=== PATIENT | female | born 1930 | race Caucasian/White ===

== ENCOUNTER 2016-07-19 12:17 | Inpatient (IN) | payer OTHER ==
[2016-07-19 12:24] VITALS: BMI 25.7
[2016-07-19] MEDS ORDERED: dilTIAZem HCL 125 MG/25 ML - 25 ML VIAL ONE ×2 (12:37→13:06)
--- NOTE | 2016-07-19 12:40 | PDOC ---
History of Present Illness - General History Source: Patient, Family, Primary Care Provider Exam Limitations: No Limitations <CastanoLeilani blake - Last Filed: 07/19/16 16:32> <Brandon Gonzales - Last Filed: 07/19/16 18:48> - General Chief Complaint: Palpitations Stated Complaint: HEART PALPITATIONS Time Seen by Provider: 07/19/16 12:39 - History of Present Illness Initial Comments: 07/19/16 12:40 The patient is an 86-year-old woman, accompanied by family, with a significant past medical history of hypertension, arrhythmia, anemia, peptic ulcer disease, GERD, and COPD(home O2 dependent) who was sent to the emergency department by her Horse Riding Coach Or Instructor, Dr. Prince Olvera for further evaluation of palpitations. As per family, who is present at bedside, the atiet was noted to be in atrial fibrillation during an outpatient scheduled cardiac appointment. Patient was recently admitted for anemia. Patient was noted to have a HGB 6 of and was transfused with an improvement of her HGB to 9, but it is still unclear of the origin of the bleed. No chest pain, fever, chills, weakness, lightheadedness, dizziness, loss of consciousness. No abdominal pain, nausea, vomiting, diarrhea. Allergies: None Known Past Surgical History: Left femur fracture surgery. Right elbow fracture surgery. Social History: Former smoker. No ETOH and recreational drug use. Primary Care Physician: Dr. Ysabel Aguirre [phone] Horse Riding Coach Or Instructor: Dr. Bernie Stacy [phone] (Leilani Castano) Past History <Leilani Castano - Last Filed: 07/19/16 16:32> - Past Medical History Anemia: Yes Asthma: No Cancer: No Cardiac Disorders: Yes (ARRHYTHMIA) CVA: No COPD: Yes (PT USES O2 AT HOME) CHF: No Dementia: No Diabetes: Yes GI Disorders: Yes (GERD/R/O GI BLD) Disorders: No HTN: Yes Hypercholesterolemia: No Liver Disease: No Seizures: No Thyroid Disease: No - Surgical History Abdominal Surgery: No Appendectomy: No Cardiac Surgery: No Cholecystectomy: No Lung Surgery: No Neurologic Surgery: No Orthopedic Surgery: Yes (FX LEFT FEMUR WITH PINNING/RIGHT ELBOW FX ) - Psycho/Social/Smoking Cessation Hx Anxiety: No Suicidal Ideation: No Smoking History: Former smoker Have you smoked in the past 12 months: No If you are a former smoker, when did you quit?: 15 YRS Information on smoking cessation initiated: No Hx Alcohol Use: No Drug/Substance Use Hx: No Substance Use Type: None Hx Substance Use Treatment: No <Brandon Gonzales - Last Filed: 07/19/16 18:48> - Past Medical History Allergies/Adverse Reactions: Allergies Allergy/AdvReac Type Severity Reaction Status Date / Time No Known Allergies Allergy Verified 07/19/16 12:23 Home Medications: Ambulatory Orders Tiotropium Hext [Spiriva] 1 inh PO BID 07/19/14 Roflumilast [Daliresp -] 500 mcg PO DAILY #30 tablet 07/21/14 Metformin HCl 500 mg PO DAILY 05/09/15 Pregabalin [Lyrica -] 75 mg PO BID 05/09/15 Albuterol 0.083% Nebulizer Lisa [Ventolin 0.083% Nebulizer Soln -] 1 neb NEB BID 12/01/15 Aspirin [ASA -] 81 mg PO DAILY 04/18/16 Calcium Carbonate [Calcium] 500 mg PO BID 04/18/16 Escitalopram Oxalate [Lexapro -] 10 mg PO BID 04/18/16 Pantoprazole Sodium [Protonix] 40 mg PO DAILY 04/18/16 Pramipexole Di-HCl [Mirapex] 0.5 mg PO HS 04/18/16 Sucralfate [Carafate] 1 gm PO BID 04/18/16 [place]-3 Acid Ethyl Esters [Lovaza -] 2 gm PO BID cap 04/21/16 Benzonatate [Tessalon Perle -] 200 mg PO BID 05/04/16 Levalbuterol Tartrate [Xopenex Hfa] 15 gm IH DAILY PRN 05/04/16 Nortriptyline HCl [Pamelor -] 30 mg PO HS 05/04/16 Prednisone 5 mg PO BID 07/13/16 Salmeterol/Fluticasone [Advair 100Mcg/50Mcg -] 1 inh PO BID 07/13/16 Atorvastatin Ca [Lipitor] 10 mg PO HS #30 tablet 07/16/16 Ferrous Sulfate [Feosol] 325 mg PO BIDWM #120 ud 07/16/16 Metoprolol Succinate [Toprol XL -] 50 mg PO DAILY #30 tab.sr.24h 07/16/16 Prednisone See Taper PO ONCE #12 tablet 07/16/16 Cardiac Specific PMH - Complaint Specific PMHX Pacemaker: No <Brandon Gonzales - Last Filed: 07/19/16 18:48> Review of Systems - Review of Systems Able to Perform ROS?: Yes <Leilani Castano - Last Filed: 07/19/16 16:32> <Brandon Gonzales - Last Filed: 07/19/16 18:48> - Review of Systems Comments:: 07/19/16 12:40 GENERAL/CONSTITUTIONAL: No fever or chills. No weakness. HEAD, EYES, EARS, NOSE AND THROAT: No change in vision. No ear pain or discharge. No sore throat. CARDIOVASCULAR: Yes: +Palpitations. No chest pain or shortness of breath. RESPIRATORY: No cough, wheezing, or hemoptysis. GASTROINTESTINAL: No nausea, vomiting, diarrhea or constipation. GENITOURINARY: No dysuria, frequency, or change in urination. MUSCULOSKELETAL: No joint or muscle swelling or pain. No neck or back pain. SKIN: No rash NEUROLOGIC: No headache, vertigo, loss of consciousness, or change in strength/ sensation. ENDOCRINE: No increased thirst. No abnormal weight change. HEMATOLOGIC/LYMPHATIC: No anemia, easy bleeding, or history of blood clots. ALLERGIC/IMMUNOLOGIC: No hives or skin allergy. (Leilani Castano) *Physical Exam <Leilani Castano - Last Filed: 07/19/16 16:32> <Brandon Gonzales - Last Filed: 07/19/16 18:48> - Vital Signs Last Vital Signs Temp Pulse Resp BP Pulse Ox 98.2 F 88 20 121/74 99 07/19/16 16:53 07/19/16 16:53 07/19/16 16:53 07/19/16 16:53 07/19/16 17:16 - Physical Exam Comments: 07/19/16 12:40 GENERAL: Awake, alert, and fully oriented, in no acute distress HEAD: No signs of trauma EYES: PERRLA, EOMI, sclera anicteric, conjunctiva clear ENT: Auricles normal inspection, hearing grossly normal, nares patent, oropharynx clear without exudates. Moist mucosa NECK: Normal ROM, supple, no lymphadenopathy, JVD, or masses LUNGS: Breath sounds equal, clear to auscultation bilaterally. No wheezes, and no crackles HEART: rapid irregularly, irregular rate and rhythm ABDOMEN: Soft, nontender, normoactive bowel sounds. No guarding, no rebound. No masses EXTREMITIES: Normal range of motion, 2+ pitting edema to , bilaterally No clubbing or cyanosis. No cords, erythema, or tenderness NEUROLOGICAL: Cranial nerves II through XII grossly intact. Normal speech ( Leilani Castano) Heart Score/ECG Review <Leilani Castano - Last Filed: 07/19/16 16:32> <Brandon Gonzales - Last Filed: 07/19/16 18:48> #1 07/19/16 12:27 Reviewed and interpreted by Dr. Brandon Gonzales IMPRESSION: Atrial fibrillation with rapid ventricular response at a rate of 199 bpm. When compared to previous EKG obtained from 04/18/2016, the patient was in normal sinus rhythm. (Leilani Castano) ED Treatment Course - LABORATORY CBC & Chemistry Diagram: 07/19/16 13:20 07/19/16 13:20 <Leilani Castano - Last Filed: 07/19/16 16:32> - LABORATORY CBC & Chemistry Diagram: 07/19/16 13:20 07/19/16 13:20 <Brandon Gonzales - Last Filed: 07/19/16 18:48> - ADDITIONAL ORDERS Additional order review: Laboratory Results 07/19/16 07/19/16 07/19/16 13:20 13:20 13:20 INR 1.04 PTT (Actin FS) 25.0 L Sodium 135 L Potassium 4.3 Chloride 102 Carbon Dioxide 30 Anion Gap 3 L BUN 32 H D Creatinine 0.9 D Creat Clearance w eGFR 59.37 Random Glucose 133 H Calcium 9.6 Magnesium 1.6 L Total Bilirubin 0.5 D AST 40 H D ALT 26 D Alkaline Phosphatase 65 Creatine Kinase 27 Troponin I 0.09 H Total Protein 7.0 Albumin 3.3 L Urine Color Urine Appearance Urine pH Ur Specific [place] Urine Protein Urine Glucose (UA) Urine Ketones Urine Blood Urine Nitrite Urine Bilirubin Urine Urobilinogen Ur Leukocyte Esterase Urine RBC Urine WBC Granular Casts Urine Mucus Blood Type Antibody Screen 07/19/16 07/19/16 13:11 12:40 INR PTT (Actin FS) Sodium Potassium Chloride Carbon Dioxide Anion Gap BUN Creatinine Creat Clearance w eGFR Random Glucose Calcium Magnesium Total Bilirubin AST ALT Alkaline Phosphatase Creatine Kinase Troponin I Total Protein Albumin Urine Color Yellow Urine Appearance Slcloudy Urine pH 5.0 Ur Specific [place] 1.026 Urine Protein 1+ H Urine Glucose (UA) Negative Urine Ketones Negative Urine Blood 1+ H Urine Nitrite Negative Urine Bilirubin Negative Urine Urobilinogen 2.0 e.u/dl H Ur Leukocyte Esterase Negative Urine RBC 21 Urine WBC 12 Granular Casts 10 Urine Mucus Few Blood Type O POSITIVE Antibody Screen Negative 07/19/16 13:20 RBC 5.01 MCV 67.1 L MCHC 29.2 L RDW 24.8 H MPV 8.7 Neutrophils % 73.7 Lymphocytes % 19.8 D Monocytes % 5.7 Eosinophils % 0.5 Basophils % 0.3 - RADIOLOGY Radiology Studies Ordered: Category Date Time Status CHEST X-RAY PORTABLE* [RAD] Stat Radiology 07/19/16 12:41 Completed Radiograph Interpretation: 07/19/16 14:12 EXAM: RAD/CHEST X-RAY PORTABLE Reviewed by Dr. Brandon Gonzales Interpreted by Dr. Bossman Arias IMPRESSION: Cardiomegaly. No evidence of vascular congestion, pulmonary infiltrate, pneumothorax or large pleural effusion. (Castano,Leilani) - Medications Given in the ED: ED Medications Discontinued Medications Generic Name Dose Route Start Last Admin Trade Name Loli PRN Reason Stop Dose Admin Diltiazem HCl 20 mg 07/19/16 12:41 07/19/16 12:55 Cardizem Injection - IVPUSH 07/19/16 12:42 20 mg ONCE ONE Administration Diltiazem HCl 10 mg 07/19/16 14:09 07/19/16 14:13 Cardizem Injection - IVPUSH 07/19/16 14:10 10 mg ONCE ONE Administration Magnesium Sulfate 2 gm 07/19/16 17:58 07/19/16 18:10 Magnesium Sulfate IVPB 07/19/16 17:59 2 gm ONCE ONE Administration Metformin HCl 500 mg 07/19/16 17:30 07/19/16 18:11 Glucophage - PO Not Given DAILY MICHAEL Metoprolol Succinate 50 mg 07/19/16 17:30 07/19/16 18:11 Toprol Xl - PO Not Given DAILY MICHAEL Metoprolol Tartrate 5 mg 07/19/16 14:15 07/19/16 14:19 Lopressor Injection - IVPUSH 07/19/16 14:16 5 mg ONCE ONE Administration Medical Decision Making <Leilani Castano - Last Filed: 07/19/16 16:32> <Brandon Gonzales - Last Filed: 07/19/16 18:48> - Medical Decision Making 07/19/16 14:11 Overhead page to Horse Riding Coach Or Instructor, Dr. Bernie Stacy Immediate response by Horse Riding Coach Or Instructor, Dr. Tristen Tucker, who is covering. Recommends to start the patient on a beta cydney. 07/19/16 16:06 MicroBlogged Hospitalist. 07/19/16 16:32 Response by Hospitalist, Dr. April No. Case was discussed. Accepts case. (Leilani Castano) *DC/Admit/Observation/Transfer <Leilani Castano - Last Filed: 07/19/16 16:32> - Discharge Dispostion Admit: Yes <Brandon Gonzales - Last Filed: 07/19/16 18:48> Diagnosis at time of Disposition: Atrial fibrillation with rapid ventricular response - Discharge Dispostion Condition at time of disposition: Improved - Referrals Referrals: Liam Michel [Primary Care Provider] - - Attestations Scribe Attestion: 07/19/16 12:40 Documentation prepared by Leilani Castano, acting as medical insurance clerk for Brandon Gonzales MD. (Leilani Castano)
[2016-07-19] MEDS ORDERED: dilTIAZem HCL 50 MG/10 ML - 10 ML VIAL IVPUSH ONE ×2 (12:41→14:09)
[2016-07-19] MEDS ORDERED: dilTIAZem HCL 50 MG/10 ML - 10 ML VIAL ONE (13:06)
[2016-07-19] MEDS ORDERED: DILTIAZEM INJECTION 125 MG in DEXTROSE 5%-WATER - 100 ML IVPB SCH (13:15)
[2016-07-19 13:53] LABS: BASOPHIL 0.3 % (0-2.0); EOSINOPHIL 0.5 % (0-4.5); MCHC 29.2 g/dl (32.0-36.0); MEAN CELL VOLUME 67.1 fl (80-96); MEAN PLT VOLUME 8.7 fl (7.5-11.1); NEUTROPHILS 73.7 % (42.8-82.8); PLATELET COUNT 458 K/MM3 (134-434); RDW 24.8 % (11.6-15.6); WHITE BLOOD COUNT 15.6 K/mm3 (4.0-10.0)
[2016-07-19 13:56] LABS: CALCIUM 9.6 mg/dL (8.5-10.1); MAGNESIUM 1.6 mg/dL (1.8-2.4)
[2016-07-19 13:57] LABS: INR 1.04 (0.82-1.09); PROTHROMBIN TIME (PATIENT) 11.5 SEC (9.98-11.88)
[2016-07-19 14:01] LABS: ALBUMIN 3.3 g/dl (3.4-5.0); BILIRUBIN,TOTAL 0.5 mg/dL (0.2-1.0); CREATININE 0.9 mg/dL (0.55-1.02); TROPONIN I 0.09 ng/ml (0.00-0.05)
[2016-07-19 14:04] LABS: MCH 19.6 pg (25.7-33.7)
[2016-07-19] MEDS ORDERED: METOPROLOL TARTRATE 5 MG/5 ML VIAL IVPUSH ONE (14:15)
[2016-07-19] MEDS ORDERED: METOPROLOL TARTRATE 5 MG/5 ML VIAL ONE (14:21)
[2016-07-19 14:22] LABS: URINE APPEARANCE SLCLOUDY; URINE BILIRUBIN NEGATIVE (NEGATIVE); URINE COLOR YELLOW; URINE GLUCOSE (UA) NEGATIVE (NEGATIVE); URINE KETONE NEGATIVE (NEGATIVE); URINE LEUK ESTERASE NEGATIVE (NEGATIVE); URINE NITRITE NEGATIVE (NEGATIVE); URINE UROBILINOGEN 2.0 E.U/dl E.U./dl (0.2-1.0)
--- NOTE | 2016-07-19 14:23 | CONSULT ---
Consult Consult Specialty:: Cardiology Referred by:: Hospitalist Medicine Reason for Consultation:: Rapid afib - History of Present Illness Chief Complaint: Palpitations History of Present Illness: 85 year old female with a past medical history of NIDDM, COPD ( on home O2), HTN , HLD, GERD, nonobstructive CAD, early Parkinson's disease, diastolic dysfunction with h/o failure, paroxysmal atrial tachycardia, anemia, gastric AVM post cautery, post herpetic neurolagia recent discharge from [facility] for AECOPD referred from cardiology office for palpitations, dyspnea on exertion and fatigue in rapid afib @ 199, given IV Cardizem and Lopressor for rate- control. 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 HISTORY), CAD, HTN, Hyperlipdemia Pulmonary: Yes: COPD Gastrointestinal: Yes: GERD Musculoskeletal: Yes: Osteoarthritis Endocrine: Yes: Diabetes Mellitus - Alcohol/Substance Use Hx Alcohol Use: No - Smoking History Smoking history: Former smoker Have you smoked in the past 12 months: No If you are a former smoker, when did you quit?: 15 YRS - Social History History of Recent Travel: No Home Medications - Allergies Allergies/Adverse Reactions: Allergies Allergy/AdvReac Type Severity Reaction Status Date / Time No Known Allergies Allergy Verified 07/19/16 12:23 - Home Medications Home Medications: Ambulatory Orders Tiotropium [place] [Spiriva] 1 inh PO BID 07/19/14 Roflumilast [Daliresp -] 500 mcg PO DAILY #30 tablet 07/21/14 Metformin HCl 500 mg PO DAILY 05/09/15 Pregabalin [Lyrica -] 75 mg PO BID 05/09/15 Albuterol 0.083% Nebulizer Lisa [Ventolin 0.083% Nebulizer Soln -] 1 neb NEB BID 12/01/15 Aspirin [ASA -] 81 mg PO DAILY 04/18/16 Calcium Carbonate [Calcium] 500 mg PO BID 04/18/16 Escitalopram Oxalate [Lexapro -] 10 mg PO BID 04/18/16 Pantoprazole Sodium [Protonix] 40 mg PO DAILY 04/18/16 Pramipexole Di-HCl [Mirapex] 0.5 mg PO HS 04/18/16 Sucralfate [Carafate] 1 gm PO BID 04/18/16 [place]-3 Acid Ethyl Esters [Lovaza -] 2 gm PO BID cap 04/21/16 Benzonatate [Tessalon Perle -] 200 mg PO BID 05/04/16 Levalbuterol Tartrate [Xopenex Hfa] 15 gm IH DAILY PRN 05/04/16 Nortriptyline HCl [Pamelor -] 30 mg PO HS 05/04/16 Prednisone 5 mg PO BID 07/13/16 Salmeterol/Fluticasone [Advair 100Mcg/50Mcg -] 1 inh PO BID 07/13/16 Atorvastatin Ca [Lipitor] 10 mg PO HS #30 tablet 07/16/16 Ferrous Sulfate [Feosol] 325 mg PO BIDWM #120 ud 07/16/16 Metoprolol Succinate [Toprol XL -] 50 mg PO DAILY #30 tab.sr.24h 07/16/16 Prednisone See Taper PO ONCE #12 tablet 07/16/16 Review of Systems - Review of Systems Cardiovascular: reports: Palpitations, Shortness of Breath Respiratory: reports: SOB on Exertion Vital Signs: Vital Signs Temperature 98.2 F 07/19/16 14:12 Pulse Rate 145 H 07/19/16 14:19 Respiratory Rate 20 07/19/16 14:12 Blood Pressure 124/88 07/19/16 14:19 O2 Sat by Pulse Oximetry (%) 94 L 07/19/16 14:12 Constitutional: Yes: No Distress, Calm Neck: Yes: Supple Respiratory: Yes: Regular, Diminished Gastrointestinal: Yes: Normal Bowel Sounds, Soft, Abdomen, Obese Cardiovascular: Yes: Tachycardia, Pulse Irregular JVD: No Carotid Bruit: No Heart Sounds: Yes: S1, S2 Murmur: Yes: Systolic Murmur, Grade 1 Edema: Yes Edema: LLE: Trace, RLE: Trace - Other Data Labs, Other Data: CBC, BMP 07/19/16 13:20 07/19/16 13:20 Troponin, BNP 07/19/16 13:20 Troponin I 0.09 H Troponin, BNP 07/19/16 13:20 Troponin I 0.09 H Rapid afib 199->Afib 100 Echo: Report Reviewed Ejection Fraction %: LVEF > or = 40 % Imaging - Results Chest X-ray: Report Reviewed (NAD) Problem List - Problems (1) Anemia Code(s): D64.9 - ANEMIA, UNSPECIFIED Qualifiers: Anemia type: unspecified type Qualified Code(s): D64.9 - Anemia, unspecified (2) COPD (chronic obstructive pulmonary disease) Code(s): J44.9 - CHRONIC OBSTRUCTIVE PULMONARY DISEASE, UNSPECIFIED Qualifiers : Emphysema type: centrilobular (3) Coronary artery disease Code(s): I25.10 - ATHSCL HEART DISEASE OF [place] CORONARY ARTERY W/O ANG PCTRS Qualifiers: Coronary Disease-Associated Artery/Lesion type: [place] artery [place] vs. transplanted heart: [place] heart Associated angina: without angina Qualified Code(s): I25.10 - Atherosclerotic heart disease of [place] coronary artery without angina pectoris (4) Diabetes Code(s): E11.9 - TYPE 2 DIABETES MELLITUS WITHOUT COMPLICATIONS Qualifiers: Diabetes mellitus complication status: with neurologic complications Diabetes mellitus complication detail: with polyneuropathy Diabetes mellitus buttermaker helper insulin use: without buttermaker helper use (5) Diastolic dysfunction with chronic heart failure Code(s): I50.32 - CHRONIC DIASTOLIC (CONGESTIVE) HEART FAILURE (6) Gastric AV malformation Code(s): Q27.33 - ARTERIOVENOUS MALFORMATION OF DIGESTIVE SYSTEM VESSEL (7) HTN (hypertension) Code(s): I10 - ESSENTIAL (PRIMARY) HYPERTENSION Qualifiers: Hypertension type: essential hypertension Qualified Code(s): I10 - Essential (primary) hypertension (8) Hyperlipidemia Code(s): E78.5 - HYPERLIPIDEMIA, UNSPECIFIED Qualifiers: Hyperlipidemia type: mixed hyperlipidemia Qualified Code(s): E78.2 - Mixed hyperlipidemia Assessment/Plan 07/14/2016 Echo: Borderline dilated with normal LV fxn LVEF 55-60%, mod LAE, mild MR, mild-mod TR, RVSP 49 mmHg, tr [place], [place] 1. Paroxysmal atrial fibrillation with RVR [id number] 2. Diastolic dysfunction 3. Anemia post-transfusion 4. Parkinsons disease 5. Nonobstructive CAD 6. HTN/HCVD 7. Gastritis, gastric AVM post cautery 8. NIDDM 9. Hyperlipidemia 10. Paroxysmal atrial tachycardia P:1. Rate-control on Cardizem gtt, IV Lopressor wean wean for HR>120 bpm, check TSH 2. Change Lopressor 50 bid, Lovaza 2 bid and Lipitor 10 qd 3. Change ASA to Eliquis 2.5 bid (Age>80, wt<60 Kg, Cr<1.5) given elevated risk score with monitor Hgb 4. BD, daliresp, O2 to maintain saO2, oral steroid taper, diuretics as needed 5. Thank you for consultative opportunity
[2016-07-19 14:46] LABS: URINE BLOOD 1+ (NEGATIVE); URINE PROTEIN 1+ (NEGATIVE)
[2016-07-19 14:57] LABS: GRANULAR CASTS 10 /lpf; URINE MUCUS FEW; URINE RBC 21 /hpf (0-3); URINE WBC 12 /hpf (3-5)
[2016-07-19] MEDS: METOPROLOL TARTRATE 50 MG TABLET (FP) PO SCH ×2 (15:17→21:31)
[2016-07-19] MEDS: APIXABAN 2.5 MG TABLET PO SCH ×2 (15:17→21:30)
[2016-07-19] MEDS ORDERED: ACETAMINOPHEN 325 MG TABLET (FP) PO PRN (16:35)
--- NOTE | 2016-07-19 17:07 | HP ---
CHIEF COMPLAINT: My heart doctor sent me to the ED PCP: Dr Tyrel Overton Pulmonary: Dr Gaona Transit Mix Operator: Dr Olvera Inspector Structural Bonding: Dr Zapien Neurologist: Dr Stubbs HISTORY OF PRESENT ILLNESS: 86 yo F with h/o COPD on home O2, NIDDM, HTN, HLD, GERD, CAD, h/o GI bleed, chronic microcytic anemia, Parkinson's disease, herpetic neurolagia sent by her cd technician to the ED due to A-fib with RVR. Patient was at Dr. Sharif's office for a regular visit where she's found to have irregularly irregular heart sound which was confirmed by abnormal EKG that showed Afib with RVR. However, patient is asymptomatic and denies palpitation, chest pain, shortness of breath, dizziness, vision change, fever, chills, n/v. She's previously admitted on 07/13/16 for COPD exacerbation and microcytic anemia s/p blood transfusion. ER course was notable for: (1) EKG shows afib with HR of 199 (2) 20mg cardizem x 1, 10mg cardizem x 1, lopressor 5mg x 1 (3) started eliquis 2.5 mg BID Recent Travel: None Social History: Lives at home Smokin-3 packs a day for at least 50 years, quit 15 years ago Alcohol: denies Drugs: denies Family History: Non-contributory Allergies No Known Allergies Allergy (Verified 07/19/16 12:23) HOME MEDICATIONS: Medication Instructions Recorded Tiotropium [place] [Spiriva] 1 inh PO BID 07/19/14 Roflumilast [Daliresp -] 500 mcg PO DAILY #30 tablet 07/21/14 Metformin HCl 500 mg PO DAILY 05/09/15 Pregabalin [Lyrica -] 75 mg PO BID 05/09/15 Albuterol 0.083% Nebulizer Lisa 1 neb NEB BID 12/01/15 [Ventolin 0.083% Nebulizer Soln -] Aspirin [ASA -] 81 mg PO DAILY 04/18/16 Calcium Carbonate [Calcium] 500 mg PO BID 04/18/16 Escitalopram Oxalate [Lexapro -] 10 mg PO BID 04/18/16 Pantoprazole Sodium [Protonix] 40 mg PO DAILY 04/18/16 Pramipexole Di-HCl [Mirapex] 0.5 mg PO HS 04/18/16 Sucralfate [Carafate] 1 gm PO BID 04/18/16 [place]-3 Acid Ethyl Esters [Lovaza 2 gm PO BID cap 04/21/16 -] Benzonatate [Tessalon [place] -] 200 mg PO BID 05/04/16 Levalbuterol Tartrate [Xopenex Hfa] 15 gm IH DAILY PRN 05/04/16 Nortriptyline HCl [Pamelor -] 30 mg PO HS 05/04/16 Prednisone 5 mg PO BID 07/13/16 Salmeterol/Fluticasone [Advair 1 inh PO BID 07/13/16 100Mcg/50Mcg -] Atorvastatin Ca [Lipitor] 10 mg PO HS #30 tablet 07/16/16 Ferrous Sulfate [Feosol] 325 mg PO BIDWM #120 ud 07/16/16 Metoprolol Succinate [Toprol XL -] 50 mg PO DAILY #30 tab.sr.24h 07/16/16 Prednisone See Taper PO ONCE #12 tablet 07/16/16 REVIEW OF SYSTEMS CONSTITUTIONAL: Absent: fever, chills, diaphoresis, generalized weakness, malaise, loss of appetite, weight change HEENT: Absent: rhinorrhea, nasal congestion, throat pain, throat swelling, difficulty swallowing, mouth swelling, ear pain, eye pain, visual changes CARDIOVASCULAR: Absent: chest pain, syncope, palpitations, irregular heart rate, lightheadedness , peripheral edema RESPIRATORY: Absent: cough, shortness of breath, dyspnea with exertion, orthopnea, wheezing, stridor, hemoptysis GASTROINTESTINAL: Absent: abdominal pain, abdominal distension, nausea, vomiting, diarrhea, constipation, melena, hematochezia GENITOURINARY: Absent: dysuria, frequency, urgency, hesitancy, hematuria, flank pain, genital pain MUSCULOSKELETAL: Absent: myalgia, arthralgia, joint swelling, back pain, neck pain SKIN: Absent: rash, itching, pallor HEMATOLOGIC/IMMUNOLOGIC: Absent: easy bleeding, easy bruising, lymphadenopathy, frequent infections ENDOCRINE: Absent: unexplained weight gain, unexplained weight loss, heat intolerance, cold intolerance NEUROLOGIC: Absent: headache, focal weakness or paresthesias, dizziness, unsteady gait, seizure, mental status changes, bladder or bowel incontinence PSYCHIATRIC: Absent: anxiety, depression, suicidal or homicidal ideation, hallucinations. PHYSICAL EXAMINATION Vital Signs - 24 hr 07/19/16 07/19/16 07/19/16 12:20 12:50 13:10 Temperature 98.8 F Pulse Rate 98 H 170 H Pulse Rate [ Left Radial] Respiratory 20 Rate Blood Pressure 108/66 133/75 Blood Pressure [Left Arm] O2 Sat by Pulse 99 99 Oximetry (%) 07/19/16 07/19/16 07/19/16 13:44 13:47 13:48 Temperature 98.3 F 98.3 F 98.3 F Pulse Rate Pulse Rate [ 155 H 162 H 179 H Left Radial] Respiratory 20 20 20 Rate Blood Pressure Blood Pressure 125/76 124/80 125/70 [Left Arm] O2 Sat by Pulse 95 95 95 Oximetry (%) 07/19/16 07/19/16 07/19/16 14:12 14:19 14:23 Temperature 98.2 F 98.2 F Pulse Rate 145 H Pulse Rate [ 135 H 130 H Left Radial] Respiratory 20 20 Rate Blood Pressure 124/88 Blood Pressure 128/85 115/62 [Left Arm] O2 Sat by Pulse 94 L 94 L Oximetry (%) 07/19/16 07/19/16 14:39 16:53 Temperature 98.2 F Pulse Rate Pulse Rate [ 89 88 Left Radial] Respiratory 20 20 Rate Blood Pressure Blood Pressure 98/78 121/74 [Left Arm] O2 Sat by Pulse 94 L 99 Oximetry (%) GENERAL: Awake, alert, and fully oriented, speak full sentences, in no acute distress. HEAD: Normal with no signs of trauma. EYES: extraocular movements intact, sclera anicteric, conjunctiva clear. No lid lag. EARS, NOSE, THROAT: oropharynx clear without exudates. Moist mucous membranes. NECK: supple without lymphadenopathy, JVD, or masses. LUNGS: Breath sounds equal, clear to auscultation bilaterally. No wheezes, and no crackles. No accessory muscle use. HEART: Regular rate and irregular rhythm, normal S1 and S2 without murmur, rub or gallop. ABDOMEN: Soft, nontender, not distended, normoactive bowel sounds, no guarding, no rebound, no masses. No hepatomegaly or splenomegaly. LOWER EXTREMITIES: No peripheral edema. SKIN: Warm, dry, normal turgor, no rashes or lesions noted. Laboratory Results - last 24 hr 07/19/16 07/19/16 07/19/16 12:40 13:11 13:20 WBC 15.6 H D RBC 5.01 Hgb 9.8 L Hct 33.7 MCV 67.1 L MCHC 29.2 L RDW 24.8 H Plt Count 458 H MPV 8.7 Neutrophils % 73.7 Lymphocytes % 19.8 D Monocytes % 5.7 Eosinophils % 0.5 Basophils % 0.3 INR PTT (Actin FS) Sodium Potassium Chloride Carbon Dioxide Anion Gap BUN Creatinine Creat Clearance w eGFR Random Glucose Calcium Magnesium Total Bilirubin AST ALT Alkaline Phosphatase Creatine Kinase Troponin I Total Protein Albumin Urine Color Yellow Urine Appearance Slcloudy Urine pH 5.0 Ur Specific [place] 1.026 Urine Protein 1+ H Urine Glucose (UA) Negative Urine Ketones Negative Urine Blood 1+ H Urine Nitrite Negative Urine Bilirubin Negative Urine Urobilinogen 2.0 e.u/dl H Ur Leukocyte Esterase Negative Urine RBC 21 Urine WBC 12 Granular Casts 10 Urine Mucus Few Blood Type O POSITIVE Antibody Screen Negative 07/19/16 07/19/16 07/19/16 13:20 13:20 13:20 WBC RBC Hgb Hct MCV MCHC RDW Plt Count MPV Neutrophils % Lymphocytes % Monocytes % Eosinophils % Basophils % INR 1.04 PTT (Actin FS) 25.0 L Sodium 135 L Potassium 4.3 Chloride 102 Carbon Dioxide 30 Anion Gap 3 L BUN 32 H D Creatinine 0.9 D Creat Clearance w eGFR 59.37 Random Glucose 133 H Calcium 9.6 Magnesium 1.6 L Total Bilirubin 0.5 D AST 40 H D ALT 26 D Alkaline Phosphatase 65 Creatine Kinase 27 Troponin I 0.09 H Total Protein 7.0 Albumin 3.3 L Urine Color Urine Appearance Urine pH Ur Specific [place] Urine Protein Urine Glucose (UA) Urine Ketones Urine Blood Urine Nitrite Urine Bilirubin Urine Urobilinogen Ur Leukocyte Esterase Urine RBC Urine WBC Granular Casts Urine Mucus Blood Type Antibody Screen Imaging studies: EKG: afib with RVR, LAD, lateral ischemia or digitalis effect CXR: no acute pathology ECHO on 07/14/2016: normal LV function with EF 55-60%, pulm. HTN, aortic root calcification, trivial pericardial effusion ASSESSMENT/PLAN: 86 yo F admitted to telemetry observation for new onset of afib with RVR. A-fib with RVR, new onset - rate controlled with cardizem gtt, lopressor PO + IVPUSH PRN - maintain HR < 120 - hold cardizem gtt if HR < 60 - hemodynamically stable - started eliquis 2.5mg BID - f/u TSH - cycle troponins - continuous cardiac monitoring Leukocytosis - likely 2/2 PO predisone and solumedrol from previous admission h/o CAD - discont. ASA due to increased bleeding risk COPD - cont. predisone 5mg BID daily - cont. advair, xopenex, daliresp, spiriva - duoneb PRN Q4H NIDDM - on SSI - hold metformin Chronic anemia, microcytic - cont. feosol HTN - cont. toprol xl, HLD - cont. lipitor and lovaza GERD - cont. protonix and carafate Parkinson's disease - cont. mirapex Depression - cont. pamelor - cont. lexapro herpetic neurolagia - cont. lyrica FEN - IVF not indicated - hypoMg, replete Mg2+, f/u AM BMP - sodium restrict diabetic diet Prophylaxis - DVT: on eliquis - GI: on protonix (home med) - deconditioning: early ambulation with fall precaution Dispo: d/c tomorrow if no acute cardiac event overnight. Visit type - Emergency Visit Emergency Visit: Yes ED Registration Date: 07/19/16 Care time: The patient presented to the Emergency Department on the above date and was hospitalized for further evaluation of their emergent condition. - New Patient This patient is new to me today: Yes Date on this admission: 07/19/16 - Critical Care Critical Care patient: No
--- NOTE | 2016-07-19 17:13 | EKG ---
Test Reason : Blood Pressure : / mmHG Vent. Rate : 199 BPM Atrial Rate : 234 BPM P-R Int : 000 ms QRS Dur : 074 ms QT Int : 234 ms P-R-T Axes : 000 -32 165 degrees QTc Int : 425 ms ATRIAL FIBRILLATION WITH RAPID VENTRICULAR RESPONSE LEFT AXIS DEVIATION ST ABNORMAL ECG WHEN COMPARED WITH ECG OF 18-APR-2016 11:21, ATRIAL FIBRILLATION HAS REPLACED SINUS RHYTHM VENT. RATE HAS INCREASED BY 115 BPM NONSPECIFIC T WAVE ABNORMALITY NO LONGER EVIDENT IN ANTERIOR LEADS T WAVE INVERSION NOW EVIDENT IN LATERAL LEADS Confirmed by MSIA LIM MD ([id number]) on 07/19/2016 5:13:04 PM Referred By: Overread By: MISA LIM MD
[2016-07-19] MEDS ORDERED: PATIENT'S OWN MEDICATION (NON-FORMULARY) (Levalbuterol Tartrate [Xopenex Hfa] 15 GM) IH PRN (17:27)
[2016-07-19] MEDS ORDERED: METOPROLOL SUCCINATE 50 MG TAB.SR.24H (FP) PO SCH (17:30)
[2016-07-19] MEDS ORDERED: metFORMIN HCL 500 MG TABLET (FP) PO SCH (17:30)
[2016-07-19] MEDS ORDERED: MAGNESIUM SULF 50% (8.12 MEQ/2 ML-1 GM VIAL) IVPB ONE (17:58)
[2016-07-19] MEDS: ROFLUMILAST 500 MCG TABLET PO SCH (18:10)
[2016-07-19] MEDS: FERROUS SO4 325 MG TABLET (FP) PO SCH (18:10)
[2016-07-19] MEDS: PANTOPRAZOLE 40 MG TABLET (FP) PO SCH (18:10)
[2016-07-19] MEDS ORDERED: FERROUS SO4 325 MG TABLET (FP) ONE (18:13)
[2016-07-19] MEDS ORDERED: PANTOPRAZOLE 40 MG TABLET (FP) ONE (18:13)
[2016-07-19] MEDS ORDERED: ALBUTEROL SO4 2.5/IPRATROPIUM 0.5 INH SOL 3 ML VIAL.NEB. NEB PRN (18:21)
[2016-07-19] MEDS ORDERED: METOPROLOL TARTRATE 5 MG/5 ML VIAL IVPUSH PRN (18:23)
--- NOTE | 2016-07-19 18:43 | PN ---
Teaching Attending Note Name of Resident: Channing Sevilla ATTENDING PHYSICIAN STATEMENT I saw and evaluated the patient. I reviewed the resident's note and discussed the case with the resident. I agree with the resident's findings and plan as documented. SUBJECTIVE:86yo F who was sent to the ER from Dr Sharif after found to be in afib with RVR. pt was sent to the hospital here found to have HR 199. started on cardizem ggt with no improvement. HR decreased with metoprolol IVP. as per daughter, she has been c/o fatigue for several weeks which they contributed to anemia which she is currently being worked up for with Dr Alegre. recently started on iron supplements. was recently d/c from hospital 3 days ago for COPD exacerbation, she completed Abx course in the hospital and is on steroid taper ( 5mg BID). denies palpitations, SOB, fever, chills, cough, N/V/C/D OBJECTIVE: Last Vital Signs Temp Pulse Resp BP Pulse Ox 98.2 F 88 20 121/74 99 07/19/16 16:53 07/19/16 16:53 07/19/16 16:53 07/19/16 16:53 07/19/16 17:16 General NAD CV S1 S2 irregular, no murmur/rub/gallop Lungs CTA B/L no wheezing/rales/rhonchi Abdomen soft NT/ND ASSESSMENT AND PLAN: 86yo F with multiple comorbidities presented to the ER and was admitted for further evaluation of their emergent condition 1. New onset afib- tele admission. continuous cardiac monitoring. trend cardiac markers. on cardizem ggt. titrate down ggt as posisble. metoprolol ivp prn HR > 120. metoprolol dose incrased to 50mg BID. CHADSVasc 7. pt is high risk for bleeding given recent gastric AVM however risk for CVA is higher. given fact pt has not had recurrent bleeding while on asa, will d/c asa and start eliquis. appreciate cardio recommendations. will need to monitor closely. explained risks with family, answered all questions and accepts risks. verbalizes understanding and agreement with plan. echo ordered 2. Leukocytosis- no signs of infection. likely steroid induced 3. Hypomangesemia- Mg 2g. 4. COPD- on intermittent home O2. no signs of acute exacerbation. steroids were not appropriately titrated down as outpatient. will d/c steroids on discharge cont inhalers 5. DVT ppx- on eliquis
[2016-07-19] MEDS ORDERED: predniSONE 10 MG TABLET (UD) PO ONE ×2 (20:00)
[2016-07-19 20:39] LABS: PLATELET COMMENT2 NO CLOTTING DETECTED; PLATELET ESTIMATE ADEQUATE (NORMAL)
[2016-07-19 20:40] LABS: ANISOCYTOSIS 3+; HYPOCHROMIA 2+; MICROCYTOSIS 1+; OVALOCYTES FEW; POIKILOCYTOSIS 1+; POLYCHROMASIA 1+; TARGET CELLS 1+; TEAR DROP CELLS FEW
[2016-07-19 20:56] LABS: TROPONIN I 0.09 ng/ml (0.00-0.05)
[2016-07-19] MEDS: predniSONE 5 MG TABLET (UD) PO SCH (21:31)
[2016-07-19] MEDS: FLUTICASONE/SALMETEROL 100 MCG/50 MCG DISKUS IH SCH (21:32)
[2016-07-19] MEDS: SUCRALFATE 1 GM TABLET (FP) PO SCH (21:32)
[2016-07-19] MEDS: ESCITALOPRAM OXALATE 10 MG TABLET (FP) PO SCH (21:32)
[2016-07-19] MEDS: OMEGA-3 ACID ETHYL ESTERS (FATTY-ACIDS) 1 GM CAPSULE (FP) PO SCH (21:33)
[2016-07-19] MEDS: ATORVASTATIN CA 10 MG TABLET (FP) PO SCH (21:33)
[2016-07-19] MEDS: PRAMIPEXOLE DIHYDROCHLORIDE 0.5 MG TABLET PO SCH (21:33)
[2016-07-19] MEDS: NORTRIPTYLINE HCL 10 MG CAPSULE PO SCH (21:34)
[2016-07-19] MEDS: ACLIDINIUM BROMIDE 400 MCG/INH AERO.POWD IH SCH (21:34)
[2016-07-19] MEDS: CALCIUM (OYSTER SHELL) 500 MG TABLET (FP) PO SCH (21:34)
[2016-07-19] MEDS: ALBUTEROL SO4 0.083% IH SOL 2.5 MG/3 ML VIAL.NEB. NEB SCH (21:35)
[2016-07-19] MEDS ORDERED: PREGABALIN 50 MG CAPSULE ONE (21:48)
[2016-07-19] MEDS ORDERED: PREGABALIN 25 MG CAPSULE ONE (21:49)
[2016-07-19] MEDS: PREGABALIN 75 MG CAPSULE PO SCH (21:53)
[2016-07-19] MEDS: INSULIN SLIDING SCALE (NOVOLOG) 1 VIAL SQ SCH (21:53)
[2016-07-19] MEDS ORDERED: ATORVASTATIN CA 10 MG TABLET (FP) PO SCH (22:00)
[2016-07-19] MEDS ORDERED: BENZONATATE 200 MG PO SCH (22:00)
[2016-07-20 02:39] LABS: TROPONIN I 0.08 ng/ml (0.00-0.05)
[2016-07-20] MEDS ORDERED: predniSONE 5 MG TABLET (UD) PO SCH (06:00)
[2016-07-20 07:12] LABS: CALCIUM 8.5 mg/dL (8.5-10.1); CREATININE 0.9 mg/dL (0.55-1.02); MAGNESIUM 1.8 mg/dL (1.8-2.4)
[2016-07-20] MEDS ORDERED: METOPROLOL TARTRATE 5 MG/5 ML VIAL ONE (07:47)
[2016-07-20] MEDS ORDERED: INSULIN (NOVOLOG) ASPART 100 UNITS/ML 10ML VIAL ONE (07:54)
[2016-07-20] MEDS: INSULIN SLIDING SCALE (NOVOLOG) 1 VIAL SQ SCH ×4 (08:00→21:46)
[2016-07-20] MEDS ORDERED: ASPIRIN 81 MG CHEWABLE TABLETS PO SCH (10:00)
[2016-07-20] MEDS ORDERED: dilTIAZem HCL 50 MG/10 ML - 10 ML VIAL ONE (10:16)
--- NOTE | 2016-07-20 10:16 | PN ---
Progress Note, Physician History of Present Illness: Still with rapid afib off Cardizem gtt, patient denies chest pain, dyspnea, palpitations or near syncope. - Current Medication List Current Medications: Active Medications Acetaminophen (Tylenol -) 650 mg PO Q4H PRN PRN Reason: FEVER OR PAIN Aclidinium [place] (Tudorza -) 1 puff IH BID [facility] Last Admin: 07/19/16 21:34 Dose: 1 puff Albuterol Sulfate (Ventolin 0.083% Nebulizer Soln -) 1 amp NEB BID [facility] Last Admin: 07/19/16 21:35 Dose: 1 amp Apixaban (Eliquis -) 2.5 mg PO BID [facility] Last Admin: 07/19/16 21:30 Dose: Not Given Atorvastatin Calcium (Lipitor -) 10 mg PO HS [facility] Last Admin: 07/19/16 21:33 Dose: 10 mg Calcium Carbonate (Os-Mon[place] 500mg -) 500 mg PO BID [facility] Last Admin: 07/19/16 21:34 Dose: 500 mg Escitalopram Oxalate (Lexapro -) 10 mg PO BID [facility] Last Admin: 07/19/16 21:32 Dose: 10 mg Ferrous Sulfate (Feosol -) 325 mg PO BIDWM [facility] Last Admin: 07/19/16 18:10 Dose: 325 mg Diltiazem HCl 125 mg/ Dextrose 125 mls @ 10 mls/hr IVPB TITR MICHAEL; 10 MG/HR PRN Reason: Protocol Last Admin: 07/19/16 13:10 Dose: 10 mls/hr Insulin Aspart (Novolog Vial Sliding Scale -) 1 vial SQ ACHS MICHAEL PRN Reason: Protocol Last Admin: 07/20/16 08:00 Dose: 2 units Metoprolol Tartrate (Lopressor Injection -) 5 mg IVPUSH Q4H PRN PRN Reason: HYPERTENSION Last Admin: 07/20/16 09:06 Dose: 5 mg Metoprolol Tartrate (Lopressor -) 50 mg PO TID [facility] Non-Formulary Medication (Benzonatate) 200 mg PO BID [facility] Non-Formulary Medication (Levalbuterol Tartrate [Xopenex Hfa]) 15 gm IH DAILY PRN PRN Reason: SHORTNESS OF BREATH Nortriptyline HCl (Pamelor -) 30 mg PO HS [facility] Last Admin: 07/19/16 21:34 Dose: 30 mg [id number] Ethyl Esters (Lovaza -) 2 gm PO BID [facility] Last Admin: 07/19/16 21:33 Dose: 2 gm Pantoprazole Sodium (Protonix -) 40 mg PO DAILY [facility] Last Admin: 07/19/16 18:10 Dose: 40 mg Pramipexole Dihydrochloride (Mirapex -) 0.5 mg PO HS [facility] Last Admin: 07/19/16 21:33 Dose: 0.5 mg Prednisone (Deltasone -) 5 mg PO BID [facility] Last Admin: 07/19/16 21:31 Dose: 5 mg Pregabalin (Lyrica -) 75 mg PO BID [facility] Last Admin: 07/19/16 21:53 Dose: 75 mg Roflumilast (Daliresp -) 500 mcg PO DAILY [facility] Last Admin: 07/19/16 18:10 Dose: 500 mcg Fluticasone/Salmeterol (Advair 100mcg/50mcg -) 1 puff IH BID [facility] Last Admin: 07/19/16 21:32 Dose: 1 puff Sucralfate (Carafate -) 1 gm PO BID [facility] Last Admin: 07/19/16 21:32 Dose: 1 gm - Objective Vital Signs: Vital Signs Temperature 97.9 F 07/20/16 08:01 Pulse Rate 160 H 07/20/16 09:06 Respiratory Rate 20 07/20/16 08:01 Blood Pressure 117/64 07/20/16 09:06 O2 Sat by Pulse Oximetry (%) 100 07/20/16 08:01 Constitutional: Yes: No Distress, Calm Neck: Yes: Supple Cardiovascular: Yes: Tachycardia, Pulse Irregular Respiratory: Yes: Regular, Diminished Gastrointestinal: Yes: Normal Bowel Sounds, Soft, Abdomen, Obese Edema: No Labs: CBC, BMP 07/20/16 06:10 INR, PTT INR 1.04 (0.82-1.09) 07/19/16 13:20 Problem List - Problems (1) Anemia Code(s): D64.9 - ANEMIA, UNSPECIFIED Qualifiers: Anemia type: unspecified type Qualified Code(s): D64.9 - Anemia, unspecified (2) COPD (chronic obstructive pulmonary disease) Code(s): J44.9 - CHRONIC OBSTRUCTIVE PULMONARY DISEASE, UNSPECIFIED Qualifiers : Emphysema type: centrilobular (3) Coronary artery disease Code(s): I25.10 - ATHSCL HEART DISEASE OF [place] CORONARY ARTERY W/O ANG PCTRS Qualifiers: Coronary Disease-Associated Artery/Lesion type: [place] artery [place] vs. transplanted heart: [place] heart Associated angina: without angina Qualified Code(s): I25.10 - Atherosclerotic heart disease of [place] coronary artery without angina pectoris (4) Diabetes Code(s): E11.9 - TYPE 2 DIABETES MELLITUS WITHOUT COMPLICATIONS Qualifiers: Diabetes mellitus complication status: with neurologic complications Diabetes mellitus complication detail: with polyneuropathy Diabetes mellitus mcc insulin use: without long term care social worker use (5) Diastolic dysfunction with chronic heart failure Code(s): I50.32 - CHRONIC DIASTOLIC (CONGESTIVE) HEART FAILURE (6) Gastric AV malformation Code(s): Q27.33 - ARTERIOVENOUS MALFORMATION OF DIGESTIVE SYSTEM VESSEL (7) HTN (hypertension) Code(s): I10 - ESSENTIAL (PRIMARY) HYPERTENSION Qualifiers: Hypertension type: essential hypertension Qualified Code(s): I10 - Essential (primary) hypertension (8) Hyperlipidemia Code(s): E78.5 - HYPERLIPIDEMIA, UNSPECIFIED Qualifiers: Hyperlipidemia type: mixed hyperlipidemia Qualified Code(s): E78.2 - Mixed hyperlipidemia Assessment/Plan 07/14/2016 Echo: Borderline dilated with normal LV fxn LVEF 55-60%, mod LAE, mild MR, mild-mod TR, RVSP 49 mmHg, tr AR, AR 1. Paroxysmal atrial fibrillation with RVR [id number] 2. Diastolic dysfunction 3. Anemia post-transfusion 4. Parkinsons disease 5. Nonobstructive CAD 6. HTN/HCVD 7. Gastritis, gastric AVM post cautery 8. NIDDM 9. Hyperlipidemia 10. Paroxysmal atrial tachycardia 11. Possible hyperthyroidism with low TSH P:1. Rate-control with Lopressor and Cardizem with uptitration as tolerated, check FT4 2. Continue Lovaza 2 bid and Lipitor 10 qd 3. Continue Eliquis 2.5 bid (Age>80, wt<60 Kg, Cr<1.5) given elevated risk score with monitor Hgb 4. BD, daliresp, O2 to maintain saO2, oral steroid taper, diuretics as needed
[2016-07-20] MEDS ORDERED: dilTIAZem HCL 30 MG TABLET (FP) ONE (10:17)
[2016-07-20] MEDS ORDERED: dilTIAZem HCL 50 MG/10 ML - 10 ML VIAL IVPUSH ONE (10:19)
[2016-07-20] MEDS: ACLIDINIUM BROMIDE 400 MCG/INH AERO.POWD IH SCH ×2 (10:24→22:41)
[2016-07-20] MEDS: FLUTICASONE/SALMETEROL 100 MCG/50 MCG DISKUS IH SCH ×2 (10:26→22:41)
[2016-07-20] MEDS: dilTIAZem HCL 30 MG TABLET (FP) PO SCH ×3 (10:29→18:46)
[2016-07-20] MEDS ORDERED: PREGABALIN 25 MG CAPSULE ONE (10:33)
[2016-07-20] MEDS: PANTOPRAZOLE 40 MG TABLET (FP) PO SCH (10:38)
[2016-07-20] MEDS: ROFLUMILAST 500 MCG TABLET PO SCH (10:38)
[2016-07-20] MEDS: APIXABAN 2.5 MG TABLET PO SCH ×2 (10:38→21:45)
[2016-07-20] MEDS: FERROUS SO4 325 MG TABLET (FP) PO SCH ×2 (10:38→18:44)
[2016-07-20] MEDS: OMEGA-3 ACID ETHYL ESTERS (FATTY-ACIDS) 1 GM CAPSULE (FP) PO SCH ×2 (10:39→21:48)
[2016-07-20] MEDS: SUCRALFATE 1 GM TABLET (FP) PO SCH ×2 (10:39→22:41)
[2016-07-20] MEDS: PREGABALIN 75 MG CAPSULE PO SCH ×2 (10:39→21:45)
[2016-07-20] MEDS: ESCITALOPRAM OXALATE 10 MG TABLET (FP) PO SCH ×2 (10:39→21:45)
[2016-07-20] MEDS: CALCIUM (OYSTER SHELL) 500 MG TABLET (FP) PO SCH ×2 (10:39→21:45)
[2016-07-20] MEDS: predniSONE 5 MG TABLET (UD) PO SCH (10:39)
[2016-07-20] MEDS ORDERED: ALBUTEROL SO4 0.083% IH SOL 2.5 MG/3 ML VIAL.NEB. NEB ONE (10:41)
[2016-07-20] MEDS: ALBUTEROL SO4 0.083% IH SOL 2.5 MG/3 ML VIAL.NEB. NEB SCH ×2 (10:45→22:48)
[2016-07-20] MEDS: METOPROLOL TARTRATE 50 MG TABLET (FP) PO SCH ×2 (13:32→21:48)
--- NOTE | 2016-07-20 15:00 | PN ---
Teaching Attending Note Name of Resident: Channing Sevilla ATTENDING PHYSICIAN STATEMENT I saw and evaluated the patient. I reviewed the resident's note and discussed the case with the resident. I agree with the resident's findings and plan as documented. SUBJECTIVE:remains asymptomatic. daughter notes poor appetite. denies CP, SOB, palpitations, N/V/C/D OBJECTIVE: Last Vital Signs Temp Pulse Resp BP Pulse Ox 98.0 F 130 H 20 102/77 100 07/20/16 12:20 07/20/16 12:20 07/20/16 12:20 07/20/16 12:20 07/20/16 12:20 General NAD CV S1 S2 irregular, tachycardic no murmur/rub/gallop Lungs CTA B/L no wheezing/rales/rhonchi Abdomen soft NT/ND ASSESSMENT AND PLAN: 86yo F with multiple comorbidities presented to the ER and was admitted for further evaluation of their emergent condition 1. New onset afib-rate remains uncontrolled. CE neg x3. off cardizem ggt now. placed on oral cardizem and metoprolol dose increased to TID dosing. will cont to monitor. if rate is unable to be controlled. will need cardioversion. NPO tonight for possible cardioversio in the AM. echo recently done. on eliquis. 2. Leukocytosis- no signs of infection. likely steroid induced 3. Hypomangesemia- Mg 800mg po 4. COPD- on intermittent home O2. no signs of acute exacerbation. will titrate down steroids. daily dosing today and tomorrow and stop on discharge. nebs prn cont inhalers 5. DM- controlled. hold metformin. iss, BGM. glucerna shakes 6. DVT ppx- on eliquis
[2016-07-20] MEDS ORDERED: MAGNESIUM OXIDE 400 MG TABLET (FP) PO ONE ×2 (15:45→17:45)
--- NOTE | 2016-07-20 17:30 | PN ---
Physical Exam: SUBJECTIVE: Patient seen and examined at bedside. She has no complaints and denies fever, chills, palpitation, chest pain, sob, abd pain, headache or dizziness. However, per her family, she's a poor historian. OBJECTIVE: Vital Signs Period Temp Pulse Resp BP Sys/Pinedo Pulse Ox Last 24 Hr 97.7 F-98.2 F 70-160 18-24 97-117/43-80 99-100 GENERAL: Awake, alert, and fully oriented, speak full sentences, in no acute distress. HEAD: Normal with no signs of trauma. EYES: extraocular movements intact, sclera anicteric, conjunctiva clear. No lid lag. EARS, NOSE, THROAT: oropharynx clear without exudates. Moist mucous membranes. NECK: supple without lymphadenopathy, JVD, or masses. LUNGS: Breath sounds equal, clear to auscultation bilaterally. No wheezes, and no crackles. No accessory muscle use. HEART: rapid rate and irregular rhythm, normal S1 and S2 without murmur, rub or gallop. ABDOMEN: Soft, nontender, not distended, normoactive bowel sounds, no guarding, no rebound, no masses. No hepatomegaly or splenomegaly. LOWER EXTREMITIES: No peripheral edema. SKIN: Warm, dry, normal turgor, no rashes or lesions noted. Laboratory Results - last 24 hr 07/19/16 07/19/16 07/20/16 20:00 21:52 02:00 Sodium Potassium Chloride Carbon Dioxide Anion Gap BUN Creatinine POC Glucometer [phone] Random Glucose Calcium Phosphorus Magnesium Creatine Kinase 25 L 29 Troponin I 0.09 H 0.08 H TSH 07/20/16 07/20/16 07/20/16 06:10 06:10 07:50 Sodium 143 Potassium 4.3 Chloride 104 Carbon Dioxide 31 Anion Gap 8 BUN 38 H Creatinine 0.9 POC Glucometer [phone] Random Glucose 184 H D Calcium 8.5 Phosphorus 4.0 Magnesium 1.8 Creatine Kinase Troponin I TSH 0.07 L 07/20/16 07/20/16 07/20/16 12:30 15:29 15:57 Sodium Potassium Chloride Carbon Dioxide Anion Gap BUN Creatinine POC Glucometer [phone] 240 Random Glucose Calcium Phosphorus Magnesium Creatine Kinase Troponin I TSH Active Medications Generic Name Dose Route Start Last Admin Trade Name Freq PRN Reason Stop Dose Admin Acetaminophen 650 mg 07/19/16 16:35 Tylenol - PO Q4H PRN FEVER OR PAIN Aclidinium [place] 1 puff 07/19/16 22:00 07/20/16 10:24 Tudorza - IH 1 puff BID MICHAEL Administration Albuterol Sulfate 1 amp 07/19/16 22:00 07/20/16 10:45 Ventolin 0.083% Nebulizer Soln - NEB 1 amp BID MICHAEL Administration Apixaban 2.5 mg 07/19/16 15:00 07/20/16 10:38 Eliquis - PO 2.5 mg BID MICHAEL Administration Atorvastatin Calcium 10 mg 07/19/16 22:00 07/19/16 21:33 Lipitor - PO 10 mg HS MICHAEL Administration Calcium Carbonate 500 mg 07/19/16 22:00 07/20/16 10:39 Os-Moncho 500mg - PO 500 mg BID MICHAEL Administration Diltiazem HCl 30 mg 07/20/16 10:30 07/20/16 12:45 Cardizem - PO 30 mg Q6HPO MICHAEL Administration Escitalopram Oxalate 10 mg 07/19/16 22:00 07/20/16 10:39 Lexapro - PO 10 mg BID MICHAEL Administration Ferrous Sulfate 325 mg 07/19/16 17:30 07/20/16 10:38 Feosol - PO 325 mg BIDWM MICHAEL Administration Insulin Aspart 1 vial 07/19/16 22:00 07/20/16 14:00 Novolog Vial Sliding Scale - SQ Not Given ACHS [facility] Protocol Metoprolol Tartrate 5 mg 07/19/16 18:23 07/20/16 09:06 Lopressor Injection - IVPUSH 5 mg Q4H PRN Administration HYPERTENSION Metoprolol Tartrate 50 mg 07/20/16 14:00 07/20/16 13:32 Lopressor - PO 50 mg TID MICHAEL Administration Non-Formulary Medication 200 mg 07/19/16 22:00 Benzonatate PO BID MICHAEL Non-Formulary Medication 15 gm 07/19/16 17:27 Levalbuterol Tartrate [Xopenex Hfa] IH DAILY PRN SHORTNESS OF BREATH Nortriptyline HCl 30 mg 07/19/16 22:00 07/19/16 21:34 Pamelor - PO 30 mg HS MICHAEL Administration Eiclm-2-Dhsj Ethyl Esters 2 gm 07/19/16 22:00 07/20/16 10:39 Lovaza - PO 2 gm BID MICHAEL Administration Pantoprazole Sodium 40 mg 07/19/16 17:30 07/20/16 10:38 Protonix - PO 40 mg DAILY MICHAEL Administration Pramipexole Dihydrochloride 0.5 mg 07/19/16 22:00 07/19/16 21:33 Mirapex - PO 0.5 mg HS MICHAEL Administration Prednisone 5 mg 07/21/16 10:00 Deltasone - PO DAILY MICHAEL Pregabalin 75 mg 07/19/16 22:00 07/20/16 10:39 Lyrica - PO 75 mg BID MICHAEL Administration Roflumilast 500 mcg 07/19/16 17:45 07/20/16 10:38 Daliresp - PO 500 mcg DAILY MICHAEL Administration Fluticasone/Salmeterol 1 puff 07/19/16 22:00 07/20/16 10:26 Advair 100mcg/50mcg - IH 1 puff BID MICHAEL Administration Sucralfate 1 gm 07/19/16 22:00 07/20/16 10:39 Carafate - PO 1 gm BID MICHAEL Administration ASSESSMENT/PLAN: 86 yo F admitted to telemetry inpatient service now for new onset of afib with RVR. A-fib with RVR, new onset - hemodynamically stable - d/c cardizem gtt - rate uncontrolled in the AM - PO lopressor increased to 50mg TID - cont. IV lopressor 5mg IVPUSH PRN - cont. cardizem 30mg PO Q6H - cont eliquis 2.5mg BID - attempt cardioversion tomorrow - low TSH, will f/u on free T4 - troponins trended down - continuous cardiac monitoring Leukocytosis - likely 2/2 PO predisone and solumedrol from previous admission h/o CAD - d/c ASA due to bleeding risk COPD - cont. predisone 5mg BID daily - cont. advair, xopenex, daliresp, spiriva - duoneb PRN Q4H NIDDM - on SSI - hold metformin Chronic anemia, microcytic - cont. feosol HTN - cont. toprol xl, HLD - cont. lipitor and lovaza GERD - cont. protonix and carafate Parkinson's disease - cont. mirapex Depression - cont. pamelor - cont. lexapro herpetic neurolagia - cont. lyrica FEN - IVF not indicated - Mg normalized - NPO Prophylaxis - DVT: on eliquis - GI: on protonix (home med) - deconditioning: early ambulation with fall precaution Dispo: d/c tomorrow if no acute cardiac event overnight. Visit type - Emergency Visit Emergency Visit: No - New Patient This patient is new to me today: No - Critical Care Critical Care patient: No
[2016-07-20] MEDS ORDERED: predniSONE 10 MG TABLET (UD) PO ONE (17:43)
[2016-07-20] MEDS: ATORVASTATIN CA 10 MG TABLET (FP) PO SCH (21:45)
[2016-07-20] MEDS: NORTRIPTYLINE HCL 10 MG CAPSULE PO SCH (22:41)
[2016-07-20] MEDS: PRAMIPEXOLE DIHYDROCHLORIDE 0.5 MG TABLET PO SCH (22:41)
[2016-07-21] MEDS: dilTIAZem HCL 30 MG TABLET (FP) PO SCH ×3 (00:05→14:02)
[2016-07-21] MEDS ORDERED: predniSONE 5 MG TABLET (UD) PO SCH (06:00)
[2016-07-21] MEDS: METOPROLOL TARTRATE 50 MG TABLET (FP) PO SCH (06:47)
[2016-07-21] MEDS: INSULIN SLIDING SCALE (NOVOLOG) 1 VIAL SQ SCH ×4 (06:47→22:52)
[2016-07-21 07:55] LABS: FREE T4 1.54 ng/dl (0.76-1.46)
[2016-07-21] MEDS ORDERED: PT OWN MED DRAWER 7, Y5N ONE ×3 (07:56→23:31)
[2016-07-21] MEDS: FERROUS SO4 325 MG TABLET (FP) PO SCH ×2 (08:06→23:37)
[2016-07-21] MEDS: predniSONE 5 MG TABLET (UD) PO SCH (09:18)
[2016-07-21] MEDS: ROFLUMILAST 500 MCG TABLET PO SCH (09:18)
[2016-07-21] MEDS: SUCRALFATE 1 GM TABLET (FP) PO SCH ×2 (09:18→23:34)
[2016-07-21] MEDS: ESCITALOPRAM OXALATE 10 MG TABLET (FP) PO SCH ×2 (09:18→22:51)
[2016-07-21] MEDS: PREGABALIN 75 MG CAPSULE PO SCH ×2 (09:19→22:51)
[2016-07-21] MEDS: PANTOPRAZOLE 40 MG TABLET (FP) PO SCH (09:19)
[2016-07-21] MEDS: OMEGA-3 ACID ETHYL ESTERS (FATTY-ACIDS) 1 GM CAPSULE (FP) PO SCH ×2 (09:19→22:50)
[2016-07-21] MEDS: ACLIDINIUM BROMIDE 400 MCG/INH AERO.POWD IH SCH ×2 (09:19→23:36)
[2016-07-21] MEDS: CALCIUM (OYSTER SHELL) 500 MG TABLET (FP) PO SCH ×2 (09:19→22:50)
[2016-07-21] MEDS: FLUTICASONE/SALMETEROL 100 MCG/50 MCG DISKUS IH SCH ×2 (09:19→23:36)
[2016-07-21] MEDS: ALBUTEROL SO4 0.083% IH SOL 2.5 MG/3 ML VIAL.NEB. NEB SCH ×2 (10:20→22:41)
[2016-07-21] MEDS: APIXABAN 2.5 MG TABLET PO SCH ×2 (12:07→22:50)
--- NOTE | 2016-07-21 12:40 | PN ---
Teaching Attending Note Name of Resident: Channing Sevilla ATTENDING PHYSICIAN STATEMENT I saw and evaluated the patient. I reviewed the resident's note and discussed the case with the resident. I agree with the resident's findings and plan as documented. SUBJECTIVE:currently asymptomatic. denies CP, SOB,fever, chills, palpitations, N /V/C/D OBJECTIVE: Last Vital Signs Temp Pulse Resp BP Pulse Ox 97.9 F 57 L 18 107/63 98 07/21/16 07:40 07/21/16 11:40 07/21/16 07:42 07/21/16 07:40 07/21/16 11:40 General NAD CV S1 S2 irregular, no murmur/rub/gallop Lungs CTA B/L no wheezing/rales/rhonchi Abdomen soft NT/ND ASSESSMENT AND PLAN: 86yo F with multiple comorbidities presented to the ER and was admitted for further evaluation of their emergent condition 1. New onset afib-rate now controlled. Hr <80. on cardizem and metoprolol po. no need for cardioversion at this time. cont eliquis. 2. Low TSH- possible subclinical hyperthryroid. appears pt had low levels in July 2014, daughter unaware of this and states labs not done. will obtain U/ s of thyroid to evaluate. will need further workup as outpatient 3. Leukocytosis- no signs of infection. likely steroid induced 4. Hypomangesemia- resolved. 5. COPD- on intermittent home O2. no signs of acute exacerbation. on daily dosing prednisone here. will d/c on discharge. cont inhalers 6. DM- controlled. start metformin on discharge. iss, BGM. glucerna shakes 7. DVT ppx- on eliquis 8. d/c home today after u/s
--- NOTE | 2016-07-21 12:45 | PN ---
Progress Note, Physician History of Present Illness: Spontaneous cardioversion to SR with rate-control, patient denies chest pain, dyspnea, palpitations or near syncope. - Current Medication List Current Medications: Active Medications Acetaminophen (Tylenol -) 650 mg PO Q4H PRN PRN Reason: FEVER OR PAIN Aclidinium [place] (Tudorza -) 1 puff IH BID [facility] Last Admin: 07/21/16 09:19 Dose: 1 puff Albuterol Sulfate (Ventolin 0.083% Nebulizer Soln -) 1 amp NEB BID [facility] Last Admin: 07/21/16 10:20 Dose: 1 amp Apixaban (Eliquis -) 2.5 mg PO BID [facility] Last Admin: 07/21/16 12:07 Dose: 2.5 mg Atorvastatin Calcium (Lipitor -) 10 mg PO HS [facility] Last Admin: 07/20/16 21:45 Dose: 10 mg Calcium Carbonate (Os-Moncho 500mg -) 500 mg PO BID [facility] Last Admin: 07/21/16 09:19 Dose: Not Given Diltiazem HCl (Cardizem -) 30 mg PO Q6HPO [facility] Last Admin: 07/21/16 06:47 Dose: 30 mg Escitalopram Oxalate (Lexapro -) 10 mg PO BID [facility] Last Admin: 07/21/16 09:18 Dose: Not Given Ferrous Sulfate (Feosol -) 325 mg PO BIDWM [facility] Last Admin: 07/21/16 08:06 Dose: Not Given Insulin Aspart (Novolog Vial Sliding Scale -) 1 vial SQ ACHS [facility] PRN Reason: Protocol Last Admin: 07/21/16 12:07 Dose: Not Given Metoprolol Tartrate (Lopressor Injection -) 5 mg IVPUSH Q4H PRN PRN Reason: HYPERTENSION Last Admin: 07/20/16 09:06 Dose: 5 mg Metoprolol Tartrate (Lopressor -) 50 mg PO TID [facility] Last Admin: 07/21/16 06:47 Dose: 50 mg Non-Formulary Medication (Benzonatate) 200 mg PO BID [facility] Non-Formulary Medication (Levalbuterol Tartrate [Xopenex Hfa]) 15 gm IH DAILY PRN PRN Reason: SHORTNESS OF BREATH Nortriptyline HCl (Pamelor -) 30 mg PO HS [facility] Last Admin: 07/20/16 22:41 Dose: 30 mg Wnfih-3-Oona Ethyl Esters (Lovaza -) 2 gm PO BID [facility] Last Admin: 07/21/16 09:19 Dose: Not Given Pantoprazole Sodium (Protonix -) 40 mg PO DAILY [facility] Last Admin: 07/21/16 09:19 Dose: Not Given Pramipexole Dihydrochloride (Mirapex -) 0.5 mg PO HS [facility] Last Admin: 07/20/16 22:41 Dose: 0.5 mg Prednisone (Deltasone -) 5 mg PO DAILY [facility] Last Admin: 07/21/16 09:18 Dose: Not Given Pregabalin (Lyrica -) 75 mg PO BID [facility] Last Admin: 07/21/16 09:19 Dose: 75 mg Roflumilast (Daliresp -) 500 mcg PO DAILY [facility] Last Admin: 07/21/16 09:18 Dose: Not Given Fluticasone/Salmeterol (Advair 100mcg/50mcg -) 1 puff IH BID [facility] Last Admin: 07/21/16 09:19 Dose: 1 puff Sucralfate (Carafate -) 1 gm PO BID [facility] Last Admin: 07/21/16 09:18 Dose: Not Given - Objective Vital Signs: Vital Signs Temperature 97.9 F 07/21/16 07:40 Pulse Rate 57 L 07/21/16 11:40 Respiratory Rate 18 07/21/16 07:42 Blood Pressure 107/63 07/21/16 07:40 O2 Sat by Pulse Oximetry (%) 98 07/21/16 11:40 Constitutional: Yes: No Distress, Calm Neck: Yes: Supple Cardiovascular: Yes: Regular Rate and Rhythm Respiratory: Yes: Regular, CTA Bilaterally Gastrointestinal: Yes: Normal Bowel Sounds, Soft Edema: No Labs: CBC, BMP 07/20/16 06:10 INR, PTT INR 1.04 (0.82-1.09) 07/19/16 13:20 - ....Imaging EKG: Report Reviewed (SR @ [facility]) Problem List - Problems (1) Anemia Code(s): D64.9 - ANEMIA, UNSPECIFIED Qualifiers: Anemia type: unspecified type Qualified Code(s): D64.9 - Anemia, unspecified (2) COPD (chronic obstructive pulmonary disease) Code(s): J44.9 - CHRONIC OBSTRUCTIVE PULMONARY DISEASE, UNSPECIFIED Qualifiers : Emphysema type: centrilobular (3) Coronary artery disease Code(s): I25.10 - ATHSCL HEART DISEASE OF [place] CORONARY ARTERY W/O ANG PCTRS Qualifiers: Coronary Disease-Associated Artery/Lesion type: [place] artery [place] vs. transplanted heart: [place] heart Associated angina: without angina Qualified Code(s): I25.10 - Atherosclerotic heart disease of [place] coronary artery without angina pectoris (4) Diabetes Code(s): E11.9 - TYPE 2 DIABETES MELLITUS WITHOUT COMPLICATIONS Qualifiers: Diabetes mellitus complication status: with neurologic complications Diabetes mellitus complication detail: with polyneuropathy Diabetes mellitus rodent exterminator insulin use: without rodent exterminator use (5) Diastolic dysfunction with chronic heart failure Code(s): I50.32 - CHRONIC DIASTOLIC (CONGESTIVE) HEART FAILURE (6) Gastric AV malformation Code(s): Q27.33 - ARTERIOVENOUS MALFORMATION OF DIGESTIVE SYSTEM VESSEL (7) HTN (hypertension) Code(s): I10 - ESSENTIAL (PRIMARY) HYPERTENSION Qualifiers: Hypertension type: essential hypertension Qualified Code(s): I10 - Essential (primary) hypertension (8) Hyperlipidemia Code(s): E78.5 - HYPERLIPIDEMIA, UNSPECIFIED Qualifiers: Hyperlipidemia type: mixed hyperlipidemia Qualified Code(s): E78.2 - Mixed hyperlipidemia (9) Paroxysmal atrial fibrillation Code(s): I48.0 - PAROXYSMAL ATRIAL FIBRILLATION (10) Premature ventricular beat Code(s): I49.3 - VENTRICULAR PREMATURE DEPOLARIZATION Assessment/Plan 07/14/2016 Echo: Borderline dilated with normal LV fxn LVEF 55-60%, mod LAE, mild MR, mild-mod TR, RVSP 49 mmHg, tr [place], [place] 1. Paroxysmal atrial fibrillation with RVR [id number] 2. Diastolic dysfunction 3. Anemia post-transfusion 4. Parkinsons disease 5. Nonobstructive CAD 6. HTN/HCVD 7. Gastritis, gastric AVM post cautery 8. NIDDM 9. Hyperlipidemia 10. Paroxysmal atrial tachycardia 11. Hyperthyroidism with low TSH and elevated FT4 12. Premature ventricular complex P:1. Change to Sotalol 80 bid with check QTc x 2 days 2. Continue Lovaza 2 bid and Lipitor 10 qd 3. Continue Eliquis 2.5 bid (Age>80, wt<60 Kg, Cr<1.5) given elevated risk score with monitor Hgb 4. BD, O2 to maintain saO2, Daliresp, oral steroid taper, diuretics as needed 5. F/u thyroid u/s, consider tapazole or PTU
--- NOTE | 2016-07-21 13:26 | PN ---
Physical Exam: SUBJECTIVE: Patient seen and examined at bedside. She has no complaints and denies fever, chills, palpitation, chest pain, sob, abd pain, headache or dizziness. OBJECTIVE: Vital Signs Period Temp Pulse Resp BP Sys/Pinedo Pulse Ox Last 24 Hr 97.2 F-98.1 F 57-132 17-22 99-110/43-65 97-100 GENERAL: Awake, alert, and fully oriented, speak full sentences, in no acute distress. HEAD: Normal with no signs of trauma. EYES: extraocular movements intact, sclera anicteric, conjunctiva clear. No lid lag. EARS, NOSE, THROAT: oropharynx clear without exudates. Moist mucous membranes. NECK: supple without lymphadenopathy, JVD, or masses. LUNGS: Breath sounds equal, clear to auscultation bilaterally. No wheezes, and no crackles. No accessory muscle use. HEART: RRR, normal S1 and S2 without murmur, rub or gallop. ABDOMEN: Soft, nontender, not distended, normoactive bowel sounds, no guarding, no rebound, no masses. No hepatomegaly or splenomegaly. LOWER EXTREMITIES: No peripheral edema. SKIN: Warm, dry, normal turgor, no rashes or lesions noted. Laboratory Results - last 24 hr 07/20/16 07/20/16 07/20/16 15:29 15:57 21:44 POC Glucometer 274 240 167 Free T4 Resin T3 Uptake 07/21/16 07/21/16 07/21/16 05:35 05:54 11:56 POC Glucometer 158 189 Free T4 1.54 H Resin T3 Uptake 37.0 Active Medications Generic Name Dose Route Start Last Admin Trade Name Alexandreq PRN Reason Stop Dose Admin Acetaminophen 650 mg 07/19/16 16:35 Tylenol - PO Q4H PRN FEVER OR PAIN Aclidinium [place] 1 puff 07/19/16 22:00 07/21/16 09:19 Tudorza - IH 1 puff BID MICHAEL Administration Albuterol Sulfate 1 amp 07/19/16 22:00 07/21/16 10:20 Ventolin 0.083% Nebulizer Soln - NEB 1 amp BID MICHAEL Administration Apixaban 2.5 mg 07/19/16 15:00 07/21/16 12:07 Eliquis - PO 2.5 mg BID MICHAEL Administration Atorvastatin Calcium 10 mg 07/19/16 22:00 07/20/16 21:45 Lipitor - PO 10 mg HS MICHAEL Administration Calcium Carbonate 500 mg 07/19/16 22:00 07/21/16 09:19 Os-Moncho 500mg - PO Not Given BID MICHAEL Diltiazem HCl 30 mg 07/20/16 10:30 07/21/16 06:47 Cardizem - PO 30 mg Q6HPO MICHAEL Administration Escitalopram Oxalate 10 mg 07/19/16 22:00 07/21/16 09:18 Lexapro - PO Not Given BID MICHAEL Ferrous Sulfate 325 mg 07/19/16 17:30 07/21/16 08:06 Feosol - PO Not Given BIDWM [facility] Insulin Aspart 1 vial 07/19/16 22:00 07/21/16 12:07 Novolog Vial Sliding Scale - SQ Not Given ACHS [facility] Protocol Metoprolol Tartrate 5 mg 07/19/16 18:23 07/20/16 09:06 Lopressor Injection - IVPUSH 5 mg Q4H PRN Administration HYPERTENSION Metoprolol Tartrate 50 mg 07/20/16 14:00 07/21/16 06:47 Lopressor - PO 50 mg TID MICHAEL Administration Non-Formulary Medication 200 mg 07/19/16 22:00 Benzonatate PO BID [facility] Non-Formulary Medication 15 gm 07/19/16 17:27 Levalbuterol Tartrate [Xopenex Hfa] IH DAILY PRN SHORTNESS OF BREATH Nortriptyline HCl 30 mg 07/19/16 22:00 07/20/16 22:41 Pamelor - PO 30 mg HS [facility] Administration Gpkxc-3-Nyhb Ethyl Esters 2 gm 07/19/16 22:00 07/21/16 09:19 Lovaza - PO Not Given BID MICHAEL Pantoprazole Sodium 40 mg 07/19/16 17:30 07/21/16 09:19 Protonix - PO Not Given DAILY [facility] Pramipexole Dihydrochloride 0.5 mg 07/19/16 22:00 07/20/16 22:41 Mirapex - PO 0.5 mg HS MICHAEL Administration Prednisone 5 mg 07/21/16 10:00 07/21/16 09:18 Deltasone - PO Not Given DAILY [facility] Pregabalin 75 mg 07/19/16 22:00 07/21/16 09:19 Lyrica - PO 75 mg BID MICHAEL Administration Roflumilast 500 mcg 07/19/16 17:45 07/21/16 09:18 Daliresp - PO Not Given DAILY MICHAEL Fluticasone/Salmeterol 1 puff 07/19/16 22:00 07/21/16 09:19 Advair 100mcg/50mcg - IH 1 puff BID MICHAEL Administration Sucralfate 1 gm 07/19/16 22:00 07/21/16 09:18 Carafate - PO Not Given BID MICHAEL ASSESSMENT/PLAN: 86 yo F admitted to telemetry inpatient service now for new onset of afib with RVR. A-fib with RVR, new onset likely due to hyperthyroidism - rate and rhythm controlled - cardioversion not necessary marcelle - started sotalol 80mg PO BID - cont. IV lopressor 5mg IVPUSH PRN - cont. cardizem 30mg PO Q6H - cont eliquis 2.5mg BID - continuous cardiac monitoring Hyperthyroidism - subclinical - start sotalol 80mg BID and monitor QTc Leukocytosis - likely 2/2 PO predisone and solumedrol from previous admission h/o CAD - d/c ASA due to bleeding risk COPD - cont. predisone 5mg BID daily - cont. advair, xopenex, daliresp, spiriva - duoneb PRN Q4H NIDDM - on SSI - hold metformin Chronic anemia, microcytic - cont. feosol HTN - cont. sotalol HLD - cont. lipitor and lovaza GERD - cont. protonix and carafate Parkinson's disease - cont. mirapex Depression - cont. pamelor - cont. lexapro herpetic neurolagia - cont. lyrica FEN - IVF not indicated - Mg normalized - diabetic diet Prophylaxis - DVT: on eliquis - GI: on protonix (home med) - deconditioning: early ambulation with fall precaution Dispo: d/c tomorrow after thyroid U/S. Visit type - Emergency Visit Emergency Visit: No - New Patient This patient is new to me today: No - Critical Care Critical Care patient: No - Discharge Referral Referred to [facility] Med P.C.: No
[2016-07-21] MEDS: METHIMAZOLE 5 MG TABLET (FP) PO SCH ×2 (15:16→22:51)
[2016-07-21] MEDS: SOTALOL HCL 80 MG TABLET (FP) PO SCH ×2 (15:17→22:51)
--- NOTE | 2016-07-21 16:40 | EKG ---
Test Reason : Blood Pressure : / mmHG Vent. Rate : 068 BPM Atrial Rate : 068 BPM P-R Int : 128 ms QRS Dur : 080 ms QT Int : 400 ms P-R-T Axes : 054 -03 086 degrees QTc Int : 425 ms SINUS RHYTHM WITH MARKED SINUS ARRHYTHMIA WITH OCCASIONAL PREMATURE VENTRICULAR COMPLEXES NONSPECIFIC T WAVE ABNORMALITY ABNORMAL ECG WHEN COMPARED WITH ECG OF 19-JUL-2016 12:27, SINUS RHYTHM HAS REPLACED ATRIAL FIBRILLATION Confirmed by MD PÉREZ, ABBEY ([id number]) on 07/21/2016 4:39:48 PM Referred By: AMAN CAMARILLO Overread By: ABBEY ORTEZ MD
[2016-07-21] MEDS: ATORVASTATIN CA 10 MG TABLET (FP) PO SCH (22:51)
[2016-07-21] MEDS: PRAMIPEXOLE DIHYDROCHLORIDE 0.5 MG TABLET PO SCH (22:56)
[2016-07-21] MEDS: NORTRIPTYLINE HCL 10 MG CAPSULE PO SCH (22:56)
[2016-07-22] MEDS ORDERED: PT OWN MED DRAWER 7, Y5N ONE ×2 (06:22→09:47)
[2016-07-22] MEDS: INSULIN SLIDING SCALE (NOVOLOG) 1 VIAL SQ SCH ×4 (06:42→21:33)
[2016-07-22] MEDS: METHIMAZOLE 5 MG TABLET (FP) PO SCH ×3 (06:53→21:28)
--- NOTE | 2016-07-22 07:49 | PN ---
Progress Note (short form) - Note Progress Note: c/o SOB and palpitations. denies CP, fever, chills, cough currently the patient is NSR at 86bpm on the monitor. SpO2 98% on 2L NC Current Medications Generic Name Dose Route Start Last Admin Trade Name Freq PRN Reason Stop Dose Admin Acetaminophen 650 mg 07/19/16 16:35 Tylenol - PO Q4H PRN FEVER OR PAIN Aclidinium [place] 1 puff 07/19/16 22:00 07/21/16 23:36 Tudorza - IH 1 puff BID MICHAEL Administration Albuterol Sulfate 1 amp 07/19/16 22:00 07/21/16 22:41 Ventolin 0.083% Nebulizer Soln - NEB 1 amp BID MICHAEL Administration Apixaban 2.5 mg 07/19/16 15:00 07/21/16 22:50 Eliquis - PO 2.5 mg BID MICHAEL Administration Atorvastatin Calcium 10 mg 07/19/16 22:00 07/21/16 22:51 Lipitor - PO 10 mg HS MICHAEL Administration Calcium Carbonate 500 mg 07/19/16 22:00 07/21/16 22:50 Os-Moncho 500mg - PO 500 mg BID MICHAEL Administration Escitalopram Oxalate 10 mg 07/19/16 22:00 07/21/16 22:51 Lexapro - PO 10 mg BID MICHAEL Administration Ferrous Sulfate 325 mg 07/19/16 17:30 07/21/16 23:37 Feosol - PO Not Given BIDWM [facility] Insulin Aspart 1 vial 07/19/16 22:00 07/22/16 06:42 Novolog Vial Sliding Scale - SQ Not Given ACHS [facility] Protocol Methimazole 15 mg 07/21/16 14:00 07/22/16 06:53 Tapazole - PO 15 mg TID MICHAEL Administration Metoprolol Tartrate 5 mg 07/19/16 18:23 07/20/16 09:06 Lopressor Injection - IVPUSH 5 mg Q4H PRN Administration HYPERTENSION Non-Formulary Medication 200 mg 07/19/16 22:00 Benzonatate PO BID MICHAEL Non-Formulary Medication 15 gm 07/19/16 17:27 Levalbuterol Tartrate [Xopenex Hfa] IH DAILY PRN SHORTNESS OF BREATH Nortriptyline HCl 30 mg 07/19/16 22:00 07/21/16 22:56 Pamelor - PO 30 mg HS MICHAEL Administration Ptgvp-3-Ogfp Ethyl Esters 2 gm 07/19/16 22:00 07/21/16 22:50 Lovaza - PO 2 gm BID MICHAEL Administration Pantoprazole Sodium 40 mg 07/19/16 17:30 07/21/16 09:19 Protonix - PO Not Given DAILY MICHAEL Pramipexole Dihydrochloride 0.5 mg 07/19/16 22:00 07/21/16 22:56 Mirapex - PO 0.5 mg HS MICHAEL Administration Prednisone 5 mg 07/21/16 10:00 07/21/16 09:18 Deltasone - PO Not Given DAILY MICHAEL Pregabalin 75 mg 07/19/16 22:00 07/21/16 22:51 Lyrica - PO 75 mg BID MICHAEL Administration Roflumilast 500 mcg 07/19/16 17:45 07/21/16 09:18 Daliresp - PO Not Given DAILY MICHAEL Fluticasone/Salmeterol 1 puff 07/19/16 22:00 07/21/16 23:36 Advair 100mcg/50mcg - IH 1 puff BID MICHAEL Administration Sotalol HCl 80 mg 07/21/16 13:30 07/21/16 22:51 Betapace - PO 80 mg BID MICHAEL Administration Sucralfate 1 gm 07/19/16 22:00 07/21/16 23:34 Carafate - PO 1 gm BID MICHAEL Administration Last Vital Signs Temp Pulse Resp BP Pulse Ox 97.2 F L 68 20 109/44 98 07/22/16 02:08 07/22/16 06:00 07/22/16 06:00 07/22/16 06:00 07/21/16 20:35 General NAD CV S1 S2 RRR, no murmur/rub/gallop Lungs CTA B/L no wheezing/rales/rhonchi Abdomen soft NT/ND ASSESSMENT AND PLAN: 86yo F with multiple comorbidities presented to the ER and was admitted for further evaluation of their emergent condition 1. New onset afib-NSR rate controlled. started on sotaolol yesterday. will monitor Qtc. prior to start 425. awaiting this morning EKG. no events noted on monitor. cont eliquis. 2. Hyperthryoidism- in the setting of afib initiated treatment yesterday. on methimazole 15mg Q8H. will need to repeat TFT in 6-8weeks. will need monitoring of CBC. thyroid u/s pending 3. Leukocytosis- no signs of infection. likely steroid induced 4. Hypomangesemia- resolved. 5. COPD- on intermittent home O2. some sob this am. ordered stat neb treatment. will need to re-evaluate. will consider increasing steroid dose back up if no improvement with breathing treatment. cont inhalers 6. DM- controlled. start metformin. iss, BGM. glucerna shakes 7. DVT ppx- on eliquis 8. d/c tomorrow after 48H of initiation of sotalol Visit type - Emergency Visit Emergency Visit: Yes ED Registration Date: 07/19/16 Care time: The patient presented to the Emergency Department on the above date and was hospitalized for further evaluation of their emergent condition. - New Patient This patient is new to me today: No - Critical Care Critical Care patient: No - Discharge Referral Referred to [facility] Med P.C[facility] No
[2016-07-22] MEDS: FERROUS SO4 325 MG TABLET (FP) PO SCH ×2 (10:09→17:32)
[2016-07-22] MEDS: PREGABALIN 75 MG CAPSULE PO SCH ×2 (10:09→21:29)
[2016-07-22] MEDS: ESCITALOPRAM OXALATE 10 MG TABLET (FP) PO SCH ×2 (10:09→21:26)
[2016-07-22] MEDS: APIXABAN 2.5 MG TABLET PO SCH ×2 (10:09→21:26)
[2016-07-22] MEDS: SUCRALFATE 1 GM TABLET (FP) PO SCH ×2 (10:09→21:26)
[2016-07-22] MEDS: CALCIUM (OYSTER SHELL) 500 MG TABLET (FP) PO SCH ×2 (10:09→21:27)
[2016-07-22] MEDS: OMEGA-3 ACID ETHYL ESTERS (FATTY-ACIDS) 1 GM CAPSULE (FP) PO SCH ×2 (10:09→21:27)
[2016-07-22] MEDS: PANTOPRAZOLE 40 MG TABLET (FP) PO SCH (10:09)
[2016-07-22] MEDS: ACLIDINIUM BROMIDE 400 MCG/INH AERO.POWD IH SCH ×2 (10:10→21:29)
[2016-07-22] MEDS: SOTALOL HCL 80 MG TABLET (FP) PO SCH ×2 (10:10→21:25)
[2016-07-22] MEDS: FLUTICASONE/SALMETEROL 100 MCG/50 MCG DISKUS IH SCH ×2 (10:10→21:24)
[2016-07-22] MEDS: ROFLUMILAST 500 MCG TABLET PO SCH (10:10)
[2016-07-22] MEDS: ALBUTEROL SO4 0.083% IH SOL 2.5 MG/3 ML VIAL.NEB. NEB SCH ×2 (10:44→21:50)
--- NOTE | 2016-07-22 12:30 | PN ---
Progress Note, Physician Chief Complaint: Events noted Remains in sinus rhythm with few atrial ectopies Not in distress History of Present Illness: Patient was seen and examined. Awake and alert. Chart was reviewed Denies chest pain, SOB or palpitations - Current Medication List Current Medications: Active Medications Acetaminophen (Tylenol -) 650 mg PO Q4H PRN PRN Reason: FEVER OR PAIN Aclidinium [place] (Tudorza -) 1 puff IH BID [facility] Last Admin: 07/22/16 10:10 Dose: 1 puff Albuterol Sulfate (Ventolin 0.083% Nebulizer Soln -) 1 amp NEB BID [facility] Last Admin: 07/22/16 10:44 Dose: 1 amp Apixaban (Eliquis -) 2.5 mg PO BID [facility] Last Admin: 07/22/16 10:09 Dose: 2.5 mg Atorvastatin Calcium (Lipitor -) 10 mg PO HS [facility] Last Admin: 07/21/16 22:51 Dose: 10 mg Calcium Carbonate (Os-Moncho 500mg -) 500 mg PO BID [facility] Last Admin: 07/22/16 10:09 Dose: 500 mg Escitalopram Oxalate (Lexapro -) 10 mg PO BID [facility] Last Admin: 07/22/16 10:09 Dose: 10 mg Ferrous Sulfate (Feosol -) 325 mg PO BIDWM [facility] Last Admin: 07/22/16 10:09 Dose: 325 mg Insulin Aspart (Novolog Vial Sliding Scale -) 1 vial SQ ACHS [facility] PRN Reason: Protocol Last Admin: 07/22/16 06:42 Dose: Not Given Metformin HCl (Glucophage -) 500 mg PO DAILY@0700 [facility] Methimazole (Tapazole -) 15 mg PO TID [facility] Last Admin: 07/22/16 06:53 Dose: 15 mg Metoprolol Tartrate (Lopressor Injection -) 5 mg IVPUSH Q4H PRN PRN Reason: HYPERTENSION Last Admin: 07/20/16 09:06 Dose: 5 mg Non-Formulary Medication (Benzonatate) 200 mg PO BID [facility] Non-Formulary Medication (Levalbuterol Tartrate [Xopenex Hfa]) 15 gm IH DAILY PRN PRN Reason: SHORTNESS OF BREATH Nortriptyline HCl (Pamelor -) 30 mg PO HS [facility] Last Admin: 07/21/16 22:56 Dose: 30 mg [id number] Ethyl Esters (Lovaza -) 2 gm PO BID [facility] Last Admin: 07/22/16 10:09 Dose: 2 gm Pantoprazole Sodium (Protonix -) 40 mg PO DAILY [facility] Last Admin: 07/22/16 10:09 Dose: 40 mg Pramipexole Dihydrochloride (Mirapex -) 0.5 mg PO HS [facility] Last Admin: 07/21/16 22:56 Dose: 0.5 mg Prednisone (Deltasone -) 5 mg PO DAILY [facility] Last Admin: 07/21/16 09:18 Dose: Not Given Pregabalin (Lyrica -) 75 mg PO BID [facility] Last Admin: 07/22/16 10:09 Dose: 75 mg Roflumilast (Daliresp -) 500 mcg PO DAILY [facility] Last Admin: 07/22/16 10:10 Dose: 500 mcg Fluticasone/Salmeterol (Advair 100mcg/50mcg -) 1 puff IH BID [facility] Last Admin: 07/22/16 10:10 Dose: 1 puff Sotalol HCl (Betapace -) 80 mg PO BID [facility] Last Admin: 07/22/16 10:10 Dose: 80 mg Sucralfate (Carafate -) 1 gm PO BID [facility] Last Admin: 07/22/16 10:09 Dose: 1 gm - Objective Vital Signs: Vital Signs Temperature 98.0 F 07/22/16 10:00 Pulse Rate 81 07/22/16 10:44 Respiratory Rate 20 07/22/16 10:00 Blood Pressure 136/56 07/22/16 10:00 O2 Sat by Pulse Oximetry (%) 96 07/22/16 10:44 Neck: Yes: Supple Cardiovascular: Yes: Regular Rate and Rhythm, S1, S2 Respiratory: Yes: CTA Bilaterally Gastrointestinal: Yes: Normal Bowel Sounds, Soft. No: Tenderness Edema: No Additional Findings/Remarks: Review of Systems Constitutional: denies: chills, fever Cardiovascular: denies: chest pain, shortness of breath, palpitation Respiratory: denies: cough, sputum production, hemoptysis Gastrointestinal: denies: nausea, vomiting, diarrhea, constipation or abdominal pain Genitourinary: No symptoms reported Musculoskeletal: No symptoms reported Problem List - Problems (1) Atrial fibrillation with rapid ventricular response Code(s): I48.91 - UNSPECIFIED ATRIAL FIBRILLATION (2) Hyperthyroidism, subclinical Code(s): E05.90 - THYROTOXICOSIS, UNSP WITHOUT THYROTOXIC CRISIS OR STORM (3) Acute exacerbation of chronic obstructive pulmonary disease Code(s): J44.1 - CHRONIC OBSTRUCTIVE PULMONARY DISEASE W (ACUTE) EXACERBATION (4) Anemia Code(s): D64.9 - ANEMIA, UNSPECIFIED Qualifiers: Anemia type: unspecified type Qualified Code(s): D64.9 - Anemia, unspecified (5) COPD (chronic obstructive pulmonary disease) Code(s): J44.9 - CHRONIC OBSTRUCTIVE PULMONARY DISEASE, UNSPECIFIED Qualifiers : COPD type: emphysema Emphysema type: centrilobular Qualified Code(s): J43.2 - Centrilobular emphysema (6) Coronary artery disease Code(s): I25.10 - ATHSCL HEART DISEASE OF [place] CORONARY ARTERY W/O ANG PCTRS Qualifiers: Coronary Disease-Associated Artery/Lesion type: [place] artery [place] vs. transplanted heart: [place] heart Associated angina: without angina Qualified Code(s): I25.10 - Atherosclerotic heart disease of [place] coronary artery without angina pectoris (7) Diabetes Code(s): E11.9 - TYPE 2 DIABETES MELLITUS WITHOUT COMPLICATIONS Qualifiers: Diabetes mellitus type: type 2 Diabetes mellitus complication status: without complication Diabetes mellitus senior care insulin use: without senior care use Qualified Code(s): E11.9 - Type 2 diabetes mellitus without complications (8) Diastolic dysfunction with chronic heart failure Code(s): I50.32 - CHRONIC DIASTOLIC (CONGESTIVE) HEART FAILURE (9) Gastric AV malformation Code(s): Q27.33 - ARTERIOVENOUS MALFORMATION OF DIGESTIVE SYSTEM VESSEL (10) HTN (hypertension) Code(s): I10 - ESSENTIAL (PRIMARY) HYPERTENSION Qualifiers: Hypertension type: essential hypertension Qualified Code(s): I10 - Essential (primary) hypertension (11) Hyperlipidemia Code(s): E78.5 - HYPERLIPIDEMIA, UNSPECIFIED Qualifiers: Hyperlipidemia type: mixed hyperlipidemia Qualified Code(s): E78.2 - Mixed hyperlipidemia (12) Parkinson disease Code(s): G20 - PARKINSON'S DISEASE Assessment/Plan 1. Paroxysmal atrial fibrillation with [id number] - spontaneous conversion to sinus rhythm 2. Diastolic dysfunction 3. Anemia status post-transfusion 4. Parkinson's disease 5. Non-obstructive CAD 6. HTN/HCVD 7. Gastritis - gastric AVM post cautery 8. NIDDM 9. Hyperlipidemia 10. Paroxysmal atrial tachycardia 11. Hyperthyroidism with low TSH and elevated FT4 12. Premature ventricular complex PLAN: 1. Continue Sotalol 80 mg BID with checking QTc x 2 days (since it was started yesterday, would keep patient on telemetry until tomorrow) 2. Continue Lovaza 2 g BID and Lipitor 10 mg QD 3. Continue Eliquis 2.5 mg BID (Age>80, wt<60 Kg, Cr<1.5) 4. Bronchodilator, O2, oral steroid taper and diuretics as needed 5. Continue Tapazole. Thyroid US report pending Further plans are to follow Ronn Grimes MD
[2016-07-22] MEDS: predniSONE 5 MG TABLET (UD) PO SCH (13:27)
--- NOTE | 2016-07-22 13:58 | EKG ---
Test Reason : Blood Pressure : / mmHG Vent. Rate : 079 BPM Atrial Rate : 079 BPM P-R Int : 128 ms QRS Dur : 074 ms QT Int : 386 ms P-R-T Axes : 058 -21 050 degrees QTc Int : 442 ms SINUS RHYTHM WITH PREMATURE ATRIAL COMPLEXES LOW VOLTAGE QRS NONSPECIFIC ST AND T WAVE ABNORMALITY ABNORMAL ECG Confirmed by MD PÉREZ, ABBEY ([id number]) on 07/22/2016 1:57:37 PM Referred By: Rosa BRUNO Overread By: ABBEY ORTEZ MD
[2016-07-22] MEDS: ALBUTEROL SO4 2.5/IPRATROPIUM 0.5 INH SOL 3 ML VIAL.NEB. NEB PRN ×2 (14:10→17:33)
[2016-07-22] MEDS ORDERED: predniSONE 5 MG TABLET (UD) PO ONE (14:15)
[2016-07-22] MEDS: predniSONE 10 MG TABLET (UD) PO SCH (14:38)
[2016-07-22] MEDS ORDERED: methylPREDNISolone NA SUCC 40 MG/1 ML VIAL IVPB ONE (17:07)
--- NOTE | 2016-07-22 17:07 | HOSP ---
Subjective - Review of Symptoms Subjective: Notified by RN that pt was c/o SOB on exertion. pt assessed saturating 98% on 2L NC. Coarse breath sounds diffuse no wheezing -likely due too rapid of taper, will give solumedrol 40mg IVP and obtain CXR. -evaluated EKG Qtc 442. Physical Examination Vital Signs: Vital Signs Temperature 98.3 F 07/22/16 14:35 Pulse Rate 77 07/22/16 14:35 Respiratory Rate 20 07/22/16 14:35 Blood Pressure 143/72 07/22/16 14:35 O2 Sat by Pulse Oximetry (%) 96 07/22/16 10:44 Labs: CBC, BMP 07/20/16 06:10
[2016-07-22] MEDS: ATORVASTATIN CA 10 MG TABLET (FP) PO SCH (21:27)
[2016-07-22] MEDS: NORTRIPTYLINE HCL 10 MG CAPSULE PO SCH (21:28)
[2016-07-22] MEDS: PRAMIPEXOLE DIHYDROCHLORIDE 0.5 MG TABLET PO SCH (21:30)
[2016-07-23] MEDS: METHIMAZOLE 5 MG TABLET (FP) PO SCH ×3 (06:31→23:12)
[2016-07-23] MEDS: metFORMIN HCL 500 MG TABLET (FP) PO SCH (06:31)
[2016-07-23] MEDS: INSULIN SLIDING SCALE (NOVOLOG) 1 VIAL SQ SCH ×4 (06:31→23:13)
[2016-07-23] MEDS: ALBUTEROL SO4 2.5/IPRATROPIUM 0.5 INH SOL 3 ML VIAL.NEB. NEB PRN ×3 (08:25→17:53)
[2016-07-23] MEDS: OMEGA-3 ACID ETHYL ESTERS (FATTY-ACIDS) 1 GM CAPSULE (FP) PO SCH ×2 (09:17→23:12)
[2016-07-23] MEDS: SOTALOL HCL 80 MG TABLET (FP) PO SCH ×2 (09:18→23:11)
[2016-07-23] MEDS: PANTOPRAZOLE 40 MG TABLET (FP) PO SCH (09:18)
[2016-07-23] MEDS: CALCIUM (OYSTER SHELL) 500 MG TABLET (FP) PO SCH ×2 (09:18→23:12)
[2016-07-23] MEDS: APIXABAN 2.5 MG TABLET PO SCH ×2 (09:18→23:11)
[2016-07-23] MEDS: FERROUS SO4 325 MG TABLET (FP) PO SCH (09:19)
[2016-07-23] MEDS: predniSONE 10 MG TABLET (UD) PO SCH (09:19)
[2016-07-23] MEDS: PREGABALIN 75 MG CAPSULE PO SCH ×2 (09:19→23:13)
[2016-07-23] MEDS: ESCITALOPRAM OXALATE 10 MG TABLET (FP) PO SCH ×2 (09:19→23:11)
[2016-07-23] MEDS: FLUTICASONE/SALMETEROL 100 MCG/50 MCG DISKUS IH SCH ×2 (09:20→23:10)
[2016-07-23] MEDS: ACLIDINIUM BROMIDE 400 MCG/INH AERO.POWD IH SCH ×2 (09:20→23:10)
[2016-07-23] MEDS: SUCRALFATE 1 GM TABLET (FP) PO SCH ×2 (09:26→23:11)
[2016-07-23] MEDS ORDERED: PT OWN MED DRAWER 7, Y5N ONE ×2 (09:26→23:04)
[2016-07-23] MEDS: ROFLUMILAST 500 MCG TABLET PO SCH (09:27)
[2016-07-23] MEDS ORDERED: methylPREDNISolone NA SUCC 40 MG/1 ML VIAL IVPB ONE (09:45)
[2016-07-23] MEDS: ALBUTEROL SO4 0.083% IH SOL 2.5 MG/3 ML VIAL.NEB. NEB SCH ×2 (10:15→21:40)
--- NOTE | 2016-07-23 13:24 | EKG ---
Test Reason : Blood Pressure : / mmHG Vent. Rate : 081 BPM Atrial Rate : 081 BPM P-R Int : 120 ms QRS Dur : 084 ms QT Int : 372 ms P-R-T Axes : 054 -06 015 degrees QTc Int : 432 ms SINUS RHYTHM WITH PREMATURE ATRIAL COMPLEXES NONSPECIFIC T WAVE ABNORMALITY ABNORMAL ECG Confirmed by MD PÉREZ, ABBEY ([id number]) on 07/23/2016 1:24:38 PM Referred By: AMAN CAMARILLO Overread By: ABBEY ORTEZ MD
--- NOTE | 2016-07-23 15:07 | PN ---
Progress Note (short form) - Note Progress Note: c/o SOB. states improves with nebulizer. denies CP, fever, chills, cough Current Medications Generic Name Dose Route Start Last Admin Trade Name Freq PRN Reason Stop Dose Admin Acetaminophen 650 mg 07/19/16 16:35 Tylenol - PO Q4H PRN FEVER OR PAIN Aclidinium [place] 1 puff 07/19/16 22:00 07/23/16 09:20 Tudorza - IH 1 puff BID MICHAEL Administration Albuterol Sulfate 1 amp 07/19/16 22:00 07/23/16 10:15 Ventolin 0.083% Nebulizer Soln - NEB 1 amp BID [facility]EL Administration Albuterol/Ipratropium 1 amp 07/22/16 13:34 07/23/16 14:32 Duoneb - NEB 1 amp Q4H PRN Administration SHORTNESS OF BREATH Apixaban 2.5 mg 07/19/16 15:00 07/23/16 09:18 Eliquis - PO 2.5 mg BID MIC[facility]EL Administration Atorvastatin Calcium 10 mg 07/19/16 22:00 07/22/16 21:27 Lipitor - PO 10 mg HS [facility]EL Administration Calcium Carbonate 500 mg 07/19/16 22:00 07/23/16 09:18 Os-Moncho 500mg - PO 500 mg BID [facility]EL Administration Escitalopram Oxalate 10 mg 07/19/16 22:00 07/23/16 09:19 Lexapro - PO 10 mg BID MIC[facility]EL Administration Ferrous Sulfate 325 mg 07/19/16 17:30 07/23/16 09:19 Feosol - PO 325 mg BIDWM MICHAEL Administration Insulin Aspart 1 vial 07/19/16 22:00 07/23/16 12:07 Novolog Vial Sliding Scale - SQ Not Given ACHS [facility] Protocol Metformin HCl 500 mg 07/23/16 07:00 07/23/16 06:31 Glucophage - PO 500 mg DAILY@0700 [facility]EL Administration Methimazole 15 mg 07/21/16 14:00 07/23/16 14:14 Tapazole - PO 15 mg TID [facility]EL Administration Metoprolol Tartrate 5 mg 07/19/16 18:23 07/20/16 09:06 Lopressor Injection - IVPUSH 5 mg Q4H PRN Administration HYPERTENSION Non-Formulary Medication 200 mg 07/19/16 22:00 Benzonatate PO BID [facility]EL Non-Formulary Medication 15 gm 07/19/16 17:27 Levalbuterol Tartrate [Xopenex Hfa] IH DAILY PRN SHORTNESS OF BREATH Nortriptyline HCl 30 mg 07/19/16 22:00 07/22/16 21:28 Pamelor - PO 30 mg HS [facility]HAEL Administration [id number] Ethyl Esters 2 gm 07/19/16 22:00 07/23/16 09:17 Lovaza - PO 2 gm BID [facility] Administration Pantoprazole Sodium 40 mg 07/19/16 17:30 07/23/16 09:18 Protonix - PO 40 mg DAILY [facility] Administration Pramipexole Dihydrochloride 0.5 mg 07/19/16 22:00 07/22/16 21:30 Mirapex - PO 0.5 mg HS [facility]EL Administration Prednisone 10 mg 07/22/16 14:15 07/23/16 09:19 Deltasone - PO 10 mg DAILY [facility] Administration Pregabalin 75 mg 07/19/16 22:00 07/23/16 09:19 Lyrica - PO 75 mg BID [facility] Administration Roflumilast 500 mcg 07/19/16 17:45 07/23/16 09:27 Daliresp - PO 500 mcg DAILY [facility] Administration Fluticasone/Salmeterol 1 puff 07/19/16 22:00 07/23/16 09:20 Advair 100mcg/50mcg - IH 1 puff BID [facility] Administration Sotalol HCl 80 mg 07/21/16 13:30 07/23/16 09:18 Betapace - PO 80 mg BID [facility] Administration Sucralfate 1 gm 07/19/16 22:00 07/23/16 09:26 Carafate - PO 1 gm BID [facility] Administration Last Vital Signs Temp Pulse Resp BP Pulse Ox 98.3 F 80 20 134/78 96 07/23/16 14:00 07/23/16 14:00 07/23/16 14:00 07/23/16 14:00 07/23/16 09:00 General NAD CV S1 S2 RRR, no murmur/rub/gallop Lungs diffuse wheezing B/L no rales/rhonchi Abdomen soft NT/ND ASSESSMENT AND PLAN: 86yo F with multiple comorbidities presented to the ER and was admitted for further evaluation of their emergent condition 1. New onset afib-NSR rate controlled. on sotalol 2 days now. monitored Qtc which has remained stable (432 today). cont eliquis. 2. Acute COPD exacerbation- likely due to bringing steroid down too quickly. given solumedrol 40mg IVPB this morning with no improvement will give additional dose now and monitor closely. saturating 96% on 2L NC. nebs prn 3. Hyperthryoidism- in the setting of afib initiated treatment yesterday. on methimazole 15mg Q8H. will need to repeat TFT in 6-8weeks. will need monitoring of CBC. thyroid u/s pending 4. Leukocytosis- no signs of infection. likely steroid induced 5. Hypomangesemia- resolved. cont inhalers 6. DM- controlled. start metformin. iss, BGM. glucerna shakes 7. DVT ppx- on eliquis 8. d/c home pending improvement in respiratory status. Visit type - Emergency Visit Emergency Visit: Yes ED Registration Date: 07/19/16 Care time: The patient presented to the Emergency Department on the above date and was hospitalized for further evaluation of their emergent condition. - New Patient This patient is new to me today: No - Critical Care Critical Care patient: No - Discharge Referral Referred to [facility] Med [facility] No
--- NOTE | 2016-07-23 16:58 | PN ---
Progress Note, Physician Chief Complaint: Events noted Remains in sinus rhythm Complains of wheezing History of Present Illness: Patient was seen and examined. Awake and alert. Chart was reviewed Denies chest pain, SOB or palpitations (+) wheezing - Current Medication List Current Medications: Active Medications Acetaminophen (Tylenol -) 650 mg PO Q4H PRN PRN Reason: FEVER OR PAIN Aclidinium [place] (Tudorza -) 1 puff IH BID [facility] Last Admin: 07/23/16 09:20 Dose: 1 puff Albuterol Sulfate (Ventolin 0.083% Nebulizer Soln -) 1 amp NEB BID [facility] Last Admin: 07/23/16 10:15 Dose: 1 amp Albuterol/Ipratropium (Duoneb -) 1 amp NEB Q4H PRN PRN Reason: SHORTNESS OF BREATH Last Admin: 07/23/16 14:32 Dose: 1 amp Apixaban (Eliquis -) 2.5 mg PO BID [facility] Last Admin: 07/23/16 09:18 Dose: 2.5 mg Atorvastatin Calcium (Lipitor -) 10 mg PO HS [facility] Last Admin: 07/22/16 21:27 Dose: 10 mg Calcium Carbonate (Os-Moncho 500mg -) 500 mg PO BID [facility] Last Admin: 07/23/16 09:18 Dose: 500 mg Escitalopram Oxalate (Lexapro -) 10 mg PO BID [facility] Last Admin: 07/23/16 09:19 Dose: 10 mg Ferrous Sulfate (Feosol -) 325 mg PO BIDWM [facility] Last Admin: 07/23/16 09:19 Dose: 325 mg Insulin Aspart (Novolog Vial Sliding Scale -) 1 vial SQ ACHS [facility] PRN Reason: Protocol Last Admin: 07/23/16 12:07 Dose: Not Given Metformin HCl (Glucophage -) 500 mg PO DAILY@0700 [facility] Last Admin: 07/23/16 06:31 Dose: 500 mg Methimazole (Tapazole -) 15 mg PO TID [facility] Last Admin: 07/23/16 14:14 Dose: 15 mg Methylprednisolone Sodium Succinate (Solu-Medrol -) 40 mg IVPB BID [facility] Metoprolol Tartrate (Lopressor Injection -) 5 mg IVPUSH Q4H PRN PRN Reason: HYPERTENSION Last Admin: 07/20/16 09:06 Dose: 5 mg Non-Formulary Medication (Benzonatate) 200 mg PO BID [facility] Non-Formulary Medication (Levalbuterol Tartrate [Xopenex Hfa]) 15 gm IH DAILY PRN PRN Reason: SHORTNESS OF BREATH Nortriptyline HCl (Pamelor -) 30 mg PO [facility] Last Admin: 07/22/16 21:28 Dose: 30 mg [id number]-6-[id number] Ethyl Esters (Lovaza -) 2 gm PO BID [facility] Last Admin: 07/23/16 09:17 Dose: 2 gm Pantoprazole Sodium (Protonix -) 40 mg PO DAILY [facility] Last Admin: 07/23/16 09:18 Dose: 40 mg Pramipexole Dihydrochloride (Mirapex -) 0.5 mg PO [facility] Last Admin: 07/22/16 21:30 Dose: 0.5 mg Pregabalin (Lyrica -) 75 mg PO BID [facility] Last Admin: 07/23/16 09:19 Dose: 75 mg Roflumilast (Daliresp -) 500 mcg PO DAILY [facility] Last Admin: 07/23/16 09:27 Dose: 500 mcg Fluticasone/Salmeterol (Advair 100mcg/50mcg -) 1 puff IH BID [facility] Last Admin: 07/23/16 09:20 Dose: 1 puff Sotalol HCl (Betapace -) 80 mg PO BID [facility] Last Admin: 07/23/16 09:18 Dose: 80 mg Sucralfate (Carafate -) 1 gm PO BID [facility] Last Admin: 07/23/16 09:26 Dose: 1 gm - Objective Vital Signs: Vital Signs Temperature 98.3 F 07/23/16 14:00 Pulse Rate 80 07/23/16 14:00 Respiratory Rate 20 07/23/16 14:00 Blood Pressure 134/78 07/23/16 14:00 O2 Sat by Pulse Oximetry (%) 96 07/23/16 10:00 Neck: Yes: Supple Cardiovascular: Yes: Regular Rate and Rhythm, S1, S2 Respiratory: Yes: Rhonchi, Wheezes Gastrointestinal: Yes: Normal Bowel Sounds, Soft. No: Tenderness Edema: No Additional Findings/Remarks: Review of Systems Constitutional: denies: chills, fever Cardiovascular: denies: chest pain, shortness of breath, palpitation Respiratory: denies: cough, sputum production, hemoptysis Gastrointestinal: denies: nausea, vomiting, diarrhea, constipation or abdominal pain Genitourinary: No symptoms reported Musculoskeletal: No symptoms reported Problem List - Problems (1) Atrial fibrillation with rapid ventricular response Code(s): I48.91 - UNSPECIFIED ATRIAL FIBRILLATION (2) Hyperthyroidism, subclinical Code(s): E05.90 - THYROTOXICOSIS, UNSP WITHOUT THYROTOXIC CRISIS OR STORM (3) Acute exacerbation of chronic obstructive pulmonary disease Code(s): J44.1 - CHRONIC OBSTRUCTIVE PULMONARY DISEASE W (ACUTE) EXACERBATION (4) Anemia Code(s): D64.9 - ANEMIA, UNSPECIFIED Qualifiers: Anemia type: unspecified type Qualified Code(s): D64.9 - Anemia, unspecified (5) COPD (chronic obstructive pulmonary disease) Code(s): J44.9 - CHRONIC OBSTRUCTIVE PULMONARY DISEASE, UNSPECIFIED Qualifiers : COPD type: emphysema Emphysema type: centrilobular Qualified Code(s): J43.2 - Centrilobular emphysema (6) Coronary artery disease Code(s): I25.10 - ATHSCL HEART DISEASE OF [place] CORONARY ARTERY W/O ANG PCTRS Qualifiers: Coronary Disease-Associated Artery/Lesion type: [place] artery [place] vs. transplanted heart: [place] heart Associated angina: without angina Qualified Code(s): I25.10 - Atherosclerotic heart disease of [place] coronary artery without angina pectoris (7) Diabetes Code(s): E11.9 - TYPE 2 DIABETES MELLITUS WITHOUT COMPLICATIONS Qualifiers: Diabetes mellitus type: type 2 Diabetes mellitus complication status: without complication Diabetes mellitus senior living insulin use: without salvage determiner use Qualified Code(s): E11.9 - Type 2 diabetes mellitus without complications (8) Diastolic dysfunction with chronic heart failure Code(s): I50.32 - CHRONIC DIASTOLIC (CONGESTIVE) HEART FAILURE (9) Gastric AV malformation Code(s): Q27.33 - ARTERIOVENOUS MALFORMATION OF DIGESTIVE SYSTEM VESSEL (10) HTN (hypertension) Code(s): I10 - ESSENTIAL (PRIMARY) HYPERTENSION Qualifiers: Hypertension type: essential hypertension Qualified Code(s): I10 - Essential (primary) hypertension (11) Hyperlipidemia Code(s): E78.5 - HYPERLIPIDEMIA, UNSPECIFIED Qualifiers: Hyperlipidemia type: mixed hyperlipidemia Qualified Code(s): E78.2 - Mixed hyperlipidemia (12) Parkinson disease Code(s): G20 - PARKINSON'S DISEASE Assessment/Plan 1. Paroxysmal atrial fibrillation with [id number] spontaneous conversion to sinus rhythm 2. Diastolic dysfunction 3. Anemia status post-transfusion 4. Parkinson's disease 5. Non-obstructive CAD 6. HTN/HCVD 7. Gastritis - gastric AVM post cautery 8. NIDDM 9. Hyperlipidemia 10. Paroxysmal atrial tachycardia 11. Hyperthyroidism with low TSH and elevated FT4 12. Premature ventricular complex 13. COPD (exacerbation) PLAN: 1. Continue Sotalol 80 mg BID with checking QTc 2. Continue Lovaza 2 g BID and Lipitor 10 mg QD 3. Continue Eliquis 2.5 mg BID 4. Bronchodilator, O2, IV steroids and diuretics as needed 5. Continue Tapazole. Further plans are to follow. Discussed with Hospitalist Ronn Grimes MD
[2016-07-23] MEDS: ATORVASTATIN CA 10 MG TABLET (FP) PO SCH (23:11)
[2016-07-23] MEDS: PRAMIPEXOLE DIHYDROCHLORIDE 0.5 MG TABLET PO SCH (23:13)
[2016-07-23] MEDS: methylPREDNISolone NA SUCC 40 MG/1 ML VIAL IVPB SCH ×2 (23:13→23:15)
[2016-07-23] MEDS: NORTRIPTYLINE HCL 10 MG CAPSULE PO SCH (23:13)
[2016-07-24] MEDS: metFORMIN HCL 500 MG TABLET (FP) PO SCH (06:16)
[2016-07-24] MEDS: METHIMAZOLE 5 MG TABLET (FP) PO SCH ×3 (06:16→21:51)
[2016-07-24] MEDS: INSULIN SLIDING SCALE (NOVOLOG) 1 VIAL SQ SCH ×4 (06:19→21:52)
[2016-07-24] MEDS: ALBUTEROL SO4 0.083% IH SOL 2.5 MG/3 ML VIAL.NEB. NEB SCH ×2 (09:00→22:46)
[2016-07-24] MEDS: ESCITALOPRAM OXALATE 10 MG TABLET (FP) PO SCH ×2 (10:07→21:50)
[2016-07-24] MEDS: FERROUS SO4 325 MG TABLET (FP) PO SCH ×2 (10:07→17:13)
[2016-07-24] MEDS: OMEGA-3 ACID ETHYL ESTERS (FATTY-ACIDS) 1 GM CAPSULE (FP) PO SCH ×2 (10:07→21:50)
[2016-07-24] MEDS: APIXABAN 2.5 MG TABLET PO SCH ×2 (10:07→21:51)
[2016-07-24] MEDS: methylPREDNISolone NA SUCC 40 MG/1 ML VIAL IVPB SCH ×2 (10:07→21:49)
[2016-07-24] MEDS: SOTALOL HCL 80 MG TABLET (FP) PO SCH ×2 (10:08→21:51)
[2016-07-24] MEDS: PANTOPRAZOLE 40 MG TABLET (FP) PO SCH (10:08)
[2016-07-24] MEDS: CALCIUM (OYSTER SHELL) 500 MG TABLET (FP) PO SCH ×2 (10:08→21:51)
[2016-07-24] MEDS: PREGABALIN 75 MG CAPSULE PO SCH ×2 (10:08→21:51)
[2016-07-24] MEDS: SUCRALFATE 1 GM TABLET (FP) PO SCH ×2 (10:10→21:50)
[2016-07-24] MEDS: ACLIDINIUM BROMIDE 400 MCG/INH AERO.POWD IH SCH ×2 (10:10→21:49)
[2016-07-24] MEDS ORDERED: PT OWN MED DRAWER 7, Y5N ONE ×2 (10:10→21:38)
[2016-07-24] MEDS: ROFLUMILAST 500 MCG TABLET PO SCH (10:10)
[2016-07-24] MEDS: FLUTICASONE/SALMETEROL 100 MCG/50 MCG DISKUS IH SCH ×2 (10:11→21:49)
--- NOTE | 2016-07-24 11:35 | PN ---
Progress Note, Physician Chief Complaint: Events noted Remains in sinus rhythm Wheezing improving History of Present Illness: Patient was seen and examined. Awake and alert. Chart was reviewed Denies chest pain, SOB or palpitations Respiratory status improving - Current Medication List Current Medications: Active Medications Acetaminophen (Tylenol -) 650 mg PO Q4H PRN PRN Reason: FEVER OR PAIN Aclidinium [place] (Tudorza -) 1 puff IH BID [facility] Last Admin: 07/24/16 10:10 Dose: 1 puff Albuterol Sulfate (Ventolin 0.083% Nebulizer Soln -) 1 amp NEB BID [facility] Last Admin: 07/24/16 09:00 Dose: 1 amp Albuterol/Ipratropium (Duoneb -) 1 amp NEB Q4H PRN PRN Reason: SHORTNESS OF BREATH Last Admin: 07/23/16 17:53 Dose: 1 amp Apixaban (Eliquis -) 2.5 mg PO BID [facility] Last Admin: 07/24/16 10:07 Dose: 2.5 mg Atorvastatin Calcium (Lipitor -) 10 mg PO HS [facility] Last Admin: 07/23/16 23:11 Dose: 10 mg Calcium Carbonate (Os-Moncho 500mg -) 500 mg PO BID [facility] Last Admin: 07/24/16 10:08 Dose: 500 mg Escitalopram Oxalate (Lexapro -) 10 mg PO BID [facility] Last Admin: 07/24/16 10:07 Dose: 10 mg Ferrous Sulfate (Feosol -) 325 mg PO BIDWM [facility] Last Admin: 07/24/16 10:07 Dose: 325 mg Insulin Aspart (Novolog Vial Sliding Scale -) 1 vial SQ ACHS [facility] PRN Reason: Protocol Last Admin: 07/24/16 06:19 Dose: 2 units Metformin HCl (Glucophage -) 500 mg PO DAILY@0700 [facility] Last Admin: 07/24/16 06:16 Dose: 500 mg Methimazole (Tapazole -) 15 mg PO TID [facility] Last Admin: 07/24/16 06:16 Dose: 15 mg Methylprednisolone Sodium Succinate (Solu-Medrol -) 40 mg IVPB BID [facility] Last Admin: 07/24/16 10:07 Dose: 40 mg Metoprolol Tartrate (Lopressor Injection -) 5 mg IVPUSH Q4H PRN PRN Reason: HYPERTENSION Last Admin: 12/29/16 09:06 Dose: 5 mg Non-Formulary Medication (Benzonatate) 200 mg PO BID [facility] Non-Formulary Medication (Levalbuterol Tartrate [Xopenex Hfa]) 15 gm IH DAILY PRN PRN Reason: SHORTNESS OF BREATH Nortriptyline HCl (Pamelor -) 30 mg PO HS [facility] Last Admin: 07/23/16 23:13 Dose: 30 mg [id number] Ethyl Esters (Lovaza -) 2 gm PO BID [facility] Last Admin: 07/24/16 10:07 Dose: 2 gm Pantoprazole Sodium (Protonix -) 40 mg PO DAILY [facility] Last Admin: 07/24/16 10:08 Dose: 40 mg Pramipexole Dihydrochloride (Mirapex -) 0.5 mg PO [facility] Last Admin: 07/23/16 23:13 Dose: 0.5 mg Pregabalin (Lyrica -) 75 mg PO BID [facility] Last Admin: 07/24/16 10:08 Dose: 75 mg Roflumilast (Daliresp -) 500 mcg PO DAILY [facility] Last Admin: 07/24/16 10:10 Dose: 500 mcg Fluticasone/Salmeterol (Advair 100mcg/50mcg -) 1 puff IH BID [facility] Last Admin: 07/24/16 10:11 Dose: 1 puff Sotalol HCl (Betapace -) 80 mg PO BID [facility] Last Admin: 07/24/16 10:08 Dose: 80 mg Sucralfate (Carafate -) 1 gm PO BID [facility] Last Admin: 07/24/16 10:10 Dose: 1 gm - Objective Vital Signs: Vital Signs Temperature 98 F 07/24/16 10:00 Pulse Rate 94 H 07/24/16 10:00 Respiratory Rate 18 07/24/16 10:00 Blood Pressure 138/78 07/24/16 10:00 O2 Sat by Pulse Oximetry (%) 98 07/24/16 09:00 Neck: Yes: Supple Cardiovascular: Yes: Regular Rate and Rhythm, S1, S2 Respiratory: Yes: Rhonchi, Wheezes (Mild) Gastrointestinal: Yes: Normal Bowel Sounds, Soft. No: Tenderness Edema: No Additional Findings/Remarks: Review of Systems Constitutional: denies: chills, fever Cardiovascular: denies: chest pain, shortness of breath, palpitation Respiratory: denies: cough, sputum production, hemoptysis Gastrointestinal: denies: nausea, vomiting, diarrhea, constipation or abdominal pain Genitourinary: No symptoms reported Musculoskeletal: No symptoms reported Problem List - Problems (1) Atrial fibrillation with rapid ventricular response Code(s): I48.91 - UNSPECIFIED ATRIAL FIBRILLATION (2) Hyperthyroidism, subclinical Code(s): E05.90 - THYROTOXICOSIS, UNSP WITHOUT THYROTOXIC CRISIS OR STORM (3) Acute exacerbation of chronic obstructive pulmonary disease Code(s): J44.1 - CHRONIC OBSTRUCTIVE PULMONARY DISEASE W (ACUTE) EXACERBATION (4) Anemia Code(s): D64.9 - ANEMIA, UNSPECIFIED Qualifiers: Anemia type: unspecified type Qualified Code(s): D64.9 - Anemia, unspecified (5) COPD (chronic obstructive pulmonary disease) Code(s): J44.9 - CHRONIC OBSTRUCTIVE PULMONARY DISEASE, UNSPECIFIED Qualifiers : COPD type: emphysema Emphysema type: centrilobular Qualified Code(s): J43.2 - Centrilobular emphysema (6) Coronary artery disease Code(s): I25.10 - ATHSCL HEART DISEASE OF [place] CORONARY ARTERY W/O ANG PCTRS Qualifiers: Coronary Disease-Associated Artery/Lesion type: [place] artery [place] vs. transplanted heart: [place] heart Associated angina: without angina Qualified Code(s): I25.10 - Atherosclerotic heart disease of [place] coronary artery without angina pectoris (7) Diabetes Code(s): E11.9 - TYPE 2 DIABETES MELLITUS WITHOUT COMPLICATIONS Qualifiers: Diabetes mellitus type: type 2 Diabetes mellitus complication status: without complication Diabetes mellitus moth exterminator insulin use: without moth exterminator use Qualified Code(s): E11.9 - Type 2 diabetes mellitus without complications (8) Diastolic dysfunction with chronic heart failure Code(s): I50.32 - CHRONIC DIASTOLIC (CONGESTIVE) HEART FAILURE (9) Gastric AV malformation Code(s): Q27.33 - ARTERIOVENOUS MALFORMATION OF DIGESTIVE SYSTEM VESSEL (10) HTN (hypertension) Code(s): I10 - ESSENTIAL (PRIMARY) HYPERTENSION Qualifiers: Hypertension type: essential hypertension Qualified Code(s): I10 - Essential (primary) hypertension (11) Hyperlipidemia Code(s): E78.5 - HYPERLIPIDEMIA, UNSPECIFIED Qualifiers: Hyperlipidemia type: mixed hyperlipidemia Qualified Code(s): E78.2 - Mixed hyperlipidemia (12) Parkinson disease Code(s): G20 - PARKINSON'S DISEASE Assessment/Plan 1. Paroxysmal atrial fibrillation with [id number] - remains in sinus rhythm 2. Diastolic dysfunction 3. Anemia status post-transfusion 4. Parkinson's disease 5. Non-obstructive CAD 6. HTN/HCVD 7. Gastritis - gastric AVM post cautery 8. NIDDM 9. Hyperlipidemia 10. Paroxysmal atrial tachycardia 11. Hyperthyroidism with low TSH and elevated FT4 12. Premature ventricular complex 13. COPD (exacerbation) PLAN: 1. Continue Sotalol 80 mg BID with checking QTc 2. Continue Lovaza 2 g BID and Lipitor 10 mg QD 3. Continue Eliquis 2.5 mg BID 4. Bronchodilator, O2, IV steroids and diuretics as needed 5. Continue Tapazole. Further plans are to follow. Discharge planning when pulmonary status is resolved oRnn Grimes MD
--- NOTE | 2016-07-24 13:39 | PN ---
Progress Note (short form) - Note Progress Note: dyspnea on exertion, improved at rest.. denies CP, fever, chills, cough Current Medications Generic Name Dose Route Start Last Admin Trade Name Freq PRN Reason Stop Dose Admin Acetaminophen 650 mg 07/19/16 16:35 Tylenol - PO Q4H PRN FEVER OR PAIN Aclidinium [place] 1 puff 07/19/16 22:00 07/24/16 10:10 Tudorza - IH 1 puff BID MICHAEL Administration Albuterol Sulfate 1 amp 07/19/16 22:00 07/24/16 09:00 Ventolin 0.083% Nebulizer Soln - NEB 1 amp BID MICHAEL Administration Albuterol/Ipratropium 1 amp 07/22/16 13:34 07/23/16 17:53 Duoneb - NEB 1 amp Q4H PRN Administration SHORTNESS OF BREATH Apixaban 2.5 mg 07/19/16 15:00 07/24/16 10:07 Eliquis - PO 2.5 mg BID MICHAEL Administration Atorvastatin Calcium 10 mg 07/19/16 22:00 07/23/16 23:11 Lipitor - PO 10 mg HS MICHAEL Administration Calcium Carbonate 500 mg 07/19/16 22:00 07/24/16 10:08 Os-Moncho 500mg - PO 500 mg BID MICHAEL Administration Escitalopram Oxalate 10 mg 07/19/16 22:00 07/24/16 10:07 Lexapro - PO 10 mg BID MICHAEL Administration Ferrous Sulfate 325 mg 07/19/16 17:30 07/24/16 10:07 Feosol - PO 325 mg BIDWM MICHAEL Administration Insulin Aspart 1 vial 07/19/16 22:00 07/24/16 11:56 Novolog Vial Sliding Scale - SQ 2 units ACHS MICHAEL Administration Protocol Metformin HCl 500 mg 07/23/16 07:00 07/24/16 06:16 Glucophage - PO 500 mg DAILY@0700 MICHAEL Administration Methimazole 15 mg 07/21/16 14:00 07/24/16 13:28 Tapazole - PO 15 mg TID MICHAEL Administration Methylprednisolone Sodium Succinate 40 mg 07/23/16 16:00 07/24/16 10:07 Solu-Medrol - IVPB 40 mg BID MICHAEL Administration Metoprolol Tartrate 5 mg 07/19/16 18:23 12/29/16 09:06 Lopressor Injection - IVPUSH 5 mg Q4H PRN Administration HYPERTENSION Non-Formulary Medication 200 mg 07/19/16 22:00 Benzonatate PO BID MICHAEL Non-Formulary Medication 15 gm 07/19/16 17:27 Levalbuterol Tartrate [Xopenex Hfa] IH DAILY PRN SHORTNESS OF BREATH Nortriptyline HCl 30 mg 07/19/16 22:00 07/23/16 23:13 Pamelor - PO 30 mg HS MICHAEL Administration [id number] Ethyl Esters 2 gm 07/19/16 22:00 07/24/16 10:07 Lovaza - PO 2 gm BID MICHAEL Administration Pantoprazole Sodium 40 mg 07/19/16 17:30 07/24/16 10:08 Protonix - PO 40 mg DAILY MICHAEL Administration Pramipexole Dihydrochloride 0.5 mg 07/19/16 22:00 07/23/16 23:13 Mirapex - PO 0.5 mg HS MICHAEL Administration Pregabalin 75 mg 07/19/16 22:00 07/24/16 10:08 Lyrica - PO 75 mg BID MICHAEL Administration Roflumilast 500 mcg 07/19/16 17:45 07/24/16 10:10 Daliresp - PO 500 mcg DAILY MICHAEL Administration Fluticasone/Salmeterol 1 puff 07/19/16 22:00 07/24/16 10:11 Advair 100mcg/50mcg - IH 1 puff BID MICHAEL Administration Sotalol HCl 80 mg 07/21/16 13:30 07/24/16 10:08 Betapace - PO 80 mg BID MICHAEL Administration Sucralfate 1 gm 07/19/16 22:00 07/24/16 10:10 Carafate - PO 1 gm BID MICHAEL Administration Last Vital Signs Temp Pulse Resp BP Pulse Ox 98 F 94 H 18 138/78 98 07/24/16 10:00 07/24/16 10:00 07/24/16 10:00 07/24/16 10:00 07/24/16 09:00 General NAD CV S1 S2 RRR, no murmur/rub/gallop Lungs diffuse wheezing B/L no rales/rhonchi Abdomen soft NT/ND ASSESSMENT AND PLAN: 86yo F with multiple comorbidities presented to the ER and was admitted for further evaluation of their emergent condition 1. New onset afib-NSR rate controlled. on sotalol 3 days now. monitored Qtc cont eliquis. 2. Acute COPD exacerbation- likely due to bringing steroid down too quickly. continues to have wheezing, with some dyspnea on exertion. will cont iv steroids 40mg BID and likely be able to titrate to po in the AM. saturating 95% on 2L NC. nebs prn 3. Hyperthryoidism- in the setting of afib initiated treatment yesterday. on methimazole 15mg Q8H. will need to repeat TFT in 6-8weeks. will need monitoring of CBC. thyroid u/s showing multiple nodules will need to f/u as outpatient 4. Leukocytosis- no signs of infection. likely steroid induced 5. Hypomangesemia- resolved. cont inhalers 6. DM- controlled. start metformin. iss, BGM. glucerna shakes 7. DVT ppx- on eliquis 8. d/c home tomorrow if able to transition to po steroids. Visit type - Emergency Visit Emergency Visit: Yes ED Registration Date: 07/19/16 Care time: The patient presented to the Emergency Department on the above date and was hospitalized for further evaluation of their emergent condition. - New Patient This patient is new to me today: No - Critical Care Critical Care patient: No - Discharge Referral Referred to [facility] Med P.C.: No
[2016-07-24] MEDS: NORTRIPTYLINE HCL 10 MG CAPSULE PO SCH (21:51)
[2016-07-24] MEDS: ATORVASTATIN CA 10 MG TABLET (FP) PO SCH (21:51)
[2016-07-24] MEDS: PRAMIPEXOLE DIHYDROCHLORIDE 0.5 MG TABLET PO SCH (21:52)
[2016-07-25] MEDS: METHIMAZOLE 5 MG TABLET (FP) PO SCH ×3 (06:50→21:40)
[2016-07-25] MEDS: metFORMIN HCL 500 MG TABLET (FP) PO SCH (06:50)
[2016-07-25] MEDS: INSULIN SLIDING SCALE (NOVOLOG) 1 VIAL SQ SCH ×4 (06:56→21:37)
--- NOTE | 2016-07-25 06:57 | PN ---
Progress Note (short form) - Note Progress Note: Chief Complaint: Events noted, notes reviewed, complains of persistent dyspnea, denies any chest pain, sinus rhythm is maintained History of Present Illness: Seen and examined on telemetry. Events noted, notes reviewed, complains of persistent dyspnea, denies any chest pain, sinus rhythm is maintained - Current Medication List Current Medications Acetaminophen (Tylenol -) 650 mg PO Q4H PRN PRN Reason: FEVER OR PAIN Aclidinium [place] (Tudorza -) 1 puff IH BID [facility] Last Admin: 07/24/16 21:49 Dose: 1 puff Albuterol Sulfate (Ventolin 0.083% Nebulizer Soln -) 1 amp NEB BID [facility] Last Admin: 07/24/16 22:46 Dose: 1 amp Albuterol/Ipratropium (Duoneb -) 1 amp NEB Q4H PRN PRN Reason: SHORTNESS OF BREATH Last Admin: 07/23/16 17:53 Dose: 1 amp Apixaban (Eliquis -) 2.5 mg PO BID [facility] Last Admin: 07/24/16 21:51 Dose: 2.5 mg Atorvastatin Calcium (Lipitor -) 10 mg PO HS [facility] Last Admin: 07/24/16 21:51 Dose: 10 mg Calcium Carbonate (Os-Moncho 500mg -) 500 mg PO BID [facility] Last Admin: 07/24/16 21:51 Dose: 500 mg Escitalopram Oxalate (Lexapro -) 10 mg PO BID [facility] Last Admin: 07/24/16 21:50 Dose: 10 mg Ferrous Sulfate (Feosol -) 325 mg PO BIDWM [facility] Last Admin: 07/24/16 17:13 Dose: 325 mg Insulin Aspart (Novolog Vial Sliding Scale -) 1 vial SQ ACHS [facility] PRN Reason: Protocol Last Admin: 07/25/16 06:56 Dose: 4 units Metformin HCl (Glucophage -) 500 mg PO DAILY@0700 [facility] Last Admin: 07/25/16 06:50 Dose: 500 mg Methimazole (Tapazole -) 15 mg PO TID [facility] Last Admin: 07/25/16 06:50 Dose: 15 mg Methylprednisolone Sodium Succinate (Solu-Medrol -) 40 mg IVPB BID [facility] Last Admin: 07/24/16 21:49 Dose: 40 mg Metoprolol Tartrate (Lopressor Injection -) 5 mg IVPUSH Q4H PRN PRN Reason: HYPERTENSION Last Admin: 07/20/16 09:06 Dose: 5 mg Non-Formulary Medication (Benzonatate) 200 mg PO BID [facility] Non-Formulary Medication (Levalbuterol Tartrate [Xopenex Hfa]) 15 gm IH DAILY PRN PRN Reason: SHORTNESS OF BREATH Nortriptyline HCl (Pamelor -) 30 mg PO HS [facility] Last Admin: 07/24/16 21:51 Dose: 30 mg [id number] Ethyl Esters (Lovaza -) 2 gm PO BID [facility] Last Admin: 07/24/16 21:50 Dose: 2 gm Pantoprazole Sodium (Protonix -) 40 mg PO DAILY [facility] Last Admin: 07/24/16 10:08 Dose: 40 mg Pramipexole Dihydrochloride (Mirapex -) 0.5 mg PO [facility] Last Admin: 07/24/16 21:52 Dose: 0.5 mg Pregabalin (Lyrica -) 75 mg PO BID [facility] Last Admin: 07/24/16 21:51 Dose: 75 mg Roflumilast (Daliresp -) 500 mcg PO DAILY [facility] Last Admin: 07/24/16 10:10 Dose: 500 mcg Fluticasone/Salmeterol (Advair 100mcg/50mcg -) 1 puff IH BID [facility] Last Admin: 07/24/16 21:49 Dose: 1 puff Sotalol HCl (Betapace -) 80 mg PO BID [facility] Last Admin: 07/24/16 21:51 Dose: 80 mg Sucralfate (Carafate -) 1 gm PO BID [facility] Last Admin: 07/24/16 21:50 Dose: 1 gm Review of Systems Constitutional: denies: chills, fever Cardiovascular: As noted above Respiratory: denies: cough or sputum production Gastrointestinal: denies: nausea, vomiting, diarrhea, constipation or abdominal pain Genitourinary: No symptoms reported Musculoskeletal: No symptoms reported - Objective Vital Signs: Last Vital Signs Temp Pulse Resp BP Pulse Ox 98.3 F 86 18 145/88 99 07/25/16 08:25 07/25/16 08:25 07/25/16 08:26 07/25/16 08:25 07/25/16 08:26 Neck: Supple Negative JVD No Bruit Cardiovascular: S1 S2 Regular Rate and Rhythm Respiratory: Scattered Rhonchi Bilaterally Gastrointestinal: Soft Benign Normal Bowel Sounds Edema: No Labs: CBC, BMP 07/19/16 13:20 07/20/16 06:10 Hepatic Panel Total Bilirubin 0.5 mg/dL (0.2-1.0) D 07/19/16 13:20 AST 40 U/L (15-37) H D 07/19/16 13:20 ALT 26 U/L (12-78) D 07/19/16 13:20 Alkaline Phosphatase 65 U/L (45-117) 07/19/16 13:20 Albumin 3.3 g/dl (3.4-5.0) L 07/19/16 13:20 INR, PTT INR 1.04 (0.82-1.09) 07/19/16 13:20 Assessment/Plan ASSESSMENT: 1. Paroxysmal atrial fibrillation currently in sinus rhythm [id number] score of 7 on NOAC's 2. CAD non obstructive CAD angina pectoris 3. Diastolic dysfunction with chronic class I NYHA classification LV failure, compensated 4. HTN 5. NIDDM 6. Hyperlipidemia 7. Parkinson's disease 8. Hyperthyroidism 9. COPD, exacerbation 10. Anemia status post-transfusion 11. History of gastritis - gastric AVM post cautery PLAN: 1. Continue Sotalol with close monitoring of QTc interval 2. Continue Continue A/C with Eliquis 3. Continue Lovaza and Lipitor 4. Bronchodilators as per primary team 5. Continue Tapazole Bernie Whitaker MD
[2016-07-25] MEDS: SOTALOL HCL 80 MG TABLET (FP) PO SCH ×2 (09:17→21:39)
[2016-07-25] MEDS: PREGABALIN 75 MG CAPSULE PO SCH ×2 (09:17→21:40)
[2016-07-25] MEDS: ESCITALOPRAM OXALATE 10 MG TABLET (FP) PO SCH ×2 (09:17→21:39)
[2016-07-25] MEDS: FERROUS SO4 325 MG TABLET (FP) PO SCH ×2 (09:17→17:02)
[2016-07-25] MEDS: CALCIUM (OYSTER SHELL) 500 MG TABLET (FP) PO SCH ×2 (09:17→21:40)
[2016-07-25] MEDS: methylPREDNISolone NA SUCC 40 MG/1 ML VIAL IVPB SCH ×2 (09:18→21:38)
[2016-07-25] MEDS: FLUTICASONE/SALMETEROL 100 MCG/50 MCG DISKUS IH SCH ×2 (09:18→21:40)
[2016-07-25] MEDS: APIXABAN 2.5 MG TABLET PO SCH ×2 (09:18→21:40)
[2016-07-25] MEDS: PANTOPRAZOLE 40 MG TABLET (FP) PO SCH (09:19)
[2016-07-25] MEDS: ACLIDINIUM BROMIDE 400 MCG/INH AERO.POWD IH SCH ×2 (09:19→21:41)
[2016-07-25] MEDS: OMEGA-3 ACID ETHYL ESTERS (FATTY-ACIDS) 1 GM CAPSULE (FP) PO SCH ×2 (09:20→21:39)
[2016-07-25] MEDS: ALBUTEROL SO4 0.083% IH SOL 2.5 MG/3 ML VIAL.NEB. NEB SCH ×2 (09:52→21:45)
[2016-07-25] MEDS ORDERED: PT OWN MED DRAWER 7, Y5N ONE ×3 (11:36→21:26)
[2016-07-25] MEDS: SUCRALFATE 1 GM TABLET (FP) PO SCH ×2 (11:38→21:40)
[2016-07-25] MEDS: ROFLUMILAST 500 MCG TABLET PO SCH (11:38)
--- NOTE | 2016-07-25 13:53 | PN ---
<Channing Sevilla - Last Filed: 07/25/16 14:17> Physical Exam: SUBJECTIVE: Patient seen and examined at bedside. She does not have any complaint and denies palpitation, chest pain, sob, fever, chills, n/v, bowel or urinary sx. OBJECTIVE: Vital Signs Period Temp Pulse Resp BP Sys/Pinedo Pulse Ox Last 24 Hr 97.3 F-98.3 F 72-88 16-24 119-147/61-88 99-100 GENERAL: Awake, alert, and fully oriented, speak full sentences, in no acute distress. HEAD: Normal with no signs of trauma. EYES: extraocular movements intact, sclera anicteric, conjunctiva clear. No lid lag. EARS, NOSE, THROAT: oropharynx clear without exudates. Moist mucous membranes. NECK: supple without lymphadenopathy, JVD, or masses. LUNGS: Breath sounds equal, clear to auscultation bilaterally. slight wheezes, and no crackles. No accessory muscle use. HEART: RRR, normal S1 and S2 without murmur, rub or gallop. ABDOMEN: Soft, nontender, not distended, normoactive bowel sounds, no guarding, no rebound, no masses. No hepatomegaly or splenomegaly. LOWER EXTREMITIES: No peripheral edema. SKIN: Warm, dry, normal turgor, no rashes or lesions noted. Laboratory Results - last 24 hr 07/24/16 07/24/16 07/24/16 11:14 11:19 16:43 POC Glucometer 187 118 235 07/24/16 07/25/16 07/25/16 21:42 06:49 11:40 POC Glucometer 169 220 132 Active Medications Generic Name Dose Route Start Last Admin Trade Name Freq PRN Reason Stop Dose Admin Acetaminophen 650 mg 07/19/16 16:35 Tylenol - PO Q4H PRN FEVER OR PAIN Aclidinium [place] 1 puff 07/19/16 22:00 07/25/16 09:19 Tudorza - IH 1 puff BID MICHAEL Administration Albuterol Sulfate 1 amp 07/19/16 22:00 07/25/16 09:52 Ventolin 0.083% Nebulizer Soln - NEB 1 amp BID MICHAEL Administration Albuterol/Ipratropium 1 amp 07/22/16 13:34 07/23/16 17:53 Duoneb - NEB 1 amp Q4H PRN Administration SHORTNESS OF BREATH Apixaban 2.5 mg 07/19/16 15:00 07/25/16 09:18 Eliquis - PO 2.5 mg BID MICHAEL Administration Atorvastatin Calcium 10 mg 07/19/16 22:00 07/24/16 21:51 Lipitor - PO 10 mg HS MICHAEL Administration Calcium Carbonate 500 mg 07/19/16 22:00 07/25/16 09:17 Os-Moncho 500mg - PO 500 mg BID MICHAEL Administration Escitalopram Oxalate 10 mg 07/19/16 22:00 07/25/16 09:17 Lexapro - PO 10 mg BID MICHAEL Administration Ferrous Sulfate 325 mg 07/19/16 17:30 07/25/16 09:17 Feosol - PO 325 mg BIDWM MICHAEL Administration Insulin Aspart 1 vial 07/19/16 22:00 07/25/16 11:42 Novolog Vial Sliding Scale - SQ Not Given ACHS [facility] Protocol Metformin HCl 500 mg 07/23/16 07:00 07/25/16 06:50 Glucophage - PO 500 mg DAILY@0700 MICHAEL Administration Methimazole 15 mg 07/21/16 14:00 07/25/16 06:50 Tapazole - PO 15 mg TID MICHAEL Administration Methylprednisolone Sodium Succinate 40 mg 07/23/16 16:00 07/25/16 09:18 Solu-Medrol - IVPB 40 mg BID MICHAEL Administration Metoprolol Tartrate 5 mg 07/19/16 18:23 07/20/16 09:06 Lopressor Injection - IVPUSH 5 mg Q4H PRN Administration HYPERTENSION Non-Formulary Medication 200 mg 07/19/16 22:00 Benzonatate PO BID MICHAEL Non-Formulary Medication 15 gm 07/19/16 17:27 Levalbuterol Tartrate [Xopenex Hfa] IH DAILY PRN SHORTNESS OF BREATH Nortriptyline HCl 30 mg 07/19/16 22:00 07/24/16 21:51 Pamelor - PO 30 mg HS MICHAEL Administration [id number] Ethyl Esters 2 gm 07/19/16 22:00 07/25/16 09:20 Lovaza - PO 2 gm BID MICHAEL Administration Pantoprazole Sodium 40 mg 07/19/16 17:30 07/25/16 09:19 Protonix - PO 40 mg DAILY MICHAEL Administration Pramipexole Dihydrochloride 0.5 mg 07/19/16 22:00 07/24/16 21:52 Mirapex - PO 0.5 mg HS MICHAEL Administration Pregabalin 75 mg 07/19/16 22:00 07/25/16 09:17 Lyrica - PO 75 mg BID MICHAEL Administration Roflumilast 500 mcg 07/19/16 17:45 07/25/16 11:38 Daliresp - PO 500 mcg DAILY MICHAEL Administration Fluticasone/Salmeterol 1 puff 07/19/16 22:00 07/25/16 09:18 Advair 100mcg/50mcg - IH 1 puff BID MICHAEL Administration Sotalol HCl 80 mg 07/21/16 13:30 07/25/16 09:17 Betapace - PO 80 mg BID MICHAEL Administration Sucralfate 1 gm 07/19/16 22:00 07/25/16 11:38 Carafate - PO 1 gm BID MICHAEL Administration ASSESSMENT/PLAN: 86 yo F admitted to telemetry inpatient service now for new onset of afib with RVR. A-fib with RVR, new onset 2/2 subclinical hyperthyroidism - rate and rhythm controlled - cont sotalol 80mg PO BID - cont. to monitor QTc - IV lopressor 5mg IVPUSH PRN - eliquis 2.5mg BID - continuous cardiac monitoring Hyperthyroidism - subclinical - cont. methimazole 15mg Q8H - f/u with endocrine as outpatient for thyroid nodules h/o CAD - d/c ASA due to bleeding risk COPD - cont. solumedrol 40mg IVPB BID daily - cont. advair, xopenex, daliresp, spiriva - duoneb PRN Q4H NIDDM - on SSI and metformin Chronic anemia, microcytic - cont. feosol HTN - cont. sotalol HLD - cont. lipitor and lovaza GERD - cont. protonix and carafate Parkinson's disease - cont. mirapex Depression - cont. pamelor - cont. lexapro herpetic neurolagia - cont. lyrica FEN - IVF not indicated - Mg normalized - diabetic diet Prophylaxis - DVT: on eliquis - GI: on protonix (home med) - deconditioning: early ambulation with fall precaution Dispo: d/c tomorrow Visit type - Emergency Visit Emergency Visit: No - New Patient This patient is new to me today: No - Critical Care Critical Care patient: No - Discharge Referral Referred to [facility] Med P.C.: No <Ok Roberts - Last Filed: 07/25/16 15:07> Physical Exam: ATTENDING PHYSICIAN STATEMENT I saw and evaluated the patient. I reviewed the resident's note and discussed the case with the resident. I agree with the resident's findings and plan as documented. SUBJECTIVE: seen and evaluated at the bedside OBJECTIVE: rhonchi on pulm exam but no wheezing ASSESSMENT AND PLAN: 85 year old woman with HTN, DM, upper GI bleed due to gastric AVM, parkinson's disease, COPD admitted for new onset atriall fibrillation due to hyperthyroidism afib -now on sotolol as per cardio attending recs -no further episodes of rapid afib -started on eliquis by cardio attending DM -on metformin COPD -cont Advair -cont spiriva -pulm consult appreciated; agree that there is no wheezing at this time -currently on solumedrol 40 BID -follow up repeat CXR
--- NOTE | 2016-07-25 14:18 | CONSULT ---
Consult Consult Specialty:: PULMONARY Referred by:: Dr. Roberts Reason for Consultation:: shortness of breath - History of Present Illness Chief Complaint: tachycardia History of Present Illness: 86yo female with h/o HTN, DM, hyperlipidemia, COPD, chronic hypoxic respiratory failure, CAD, LV diastolic dysfunction, PAT, h/o gastric AVM who was admitted after outpt talent acquisition consultant found her in rapid afib with VR 199. Rates now better controlled, started on IV medrol on Jul 23 for persistent shortness of breath. She denies any chest pain or palpitations. +cough productive of white sputum which is similar to her baseline cough. Family also reports wheezing. No fevers , chills or sweats. She does reports leg swelling which has improved since admission. 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 HISTORY), CAD, HTN, Hyperlipdemia Pulmonary: Yes: COPD Gastrointestinal: Yes: GERD Musculoskeletal: Yes: Osteoarthritis Endocrine: Yes: Diabetes Mellitus - Alcohol/Substance Use Hx Alcohol Use: No - Smoking History Smoking history: Former smoker Have you smoked in the past 12 months: No If you are a former smoker, when did you quit?: 15 YRS - Social History History of Recent Travel: No Home Medications - Allergies Allergies/Adverse Reactions: Allergies Allergy/AdvReac Type Severity Reaction Status Date / Time No Known Allergies Allergy Verified 07/19/16 12:23 - Home Medications Home Medications: Ambulatory Orders Tiotropium [place] [Spiriva] 1 inh PO BID 07/19/14 Roflumilast [Daliresp -] 500 mcg PO DAILY #30 tablet 07/21/14 Metformin HCl 500 mg PO DAILY 05/09/15 Pregabalin [Lyrica -] 75 mg PO BID 05/09/15 Albuterol 0.083% Nebulizer Lisa [Ventolin 0.083% Nebulizer Soln -] 1 neb NEB BID 12/01/15 Aspirin [ASA -] 81 mg PO DAILY 04/18/16 Calcium Carbonate [Calcium] 500 mg PO BID 04/18/16 Escitalopram Oxalate [Lexapro -] 10 mg PO BID 04/18/16 Pantoprazole Sodium [Protonix] 40 mg PO DAILY 04/18/16 Pramipexole Di-HCl [Mirapex] 0.5 mg PO HS 04/18/16 Sucralfate [Carafate] 1 gm PO BID 04/18/16 [employer] Acid Ethyl Esters [Lovaza -] 2 gm PO BID cap 04/21/16 Benzonatate [Tessalon Perle -] 200 mg PO BID 05/04/16 Levalbuterol Tartrate [Xopenex Hfa] 15 gm IH DAILY PRN 05/04/16 Nortriptyline HCl [Pamelor -] 30 mg PO HS 05/04/16 Prednisone 5 mg PO BID 07/13/16 Salmeterol/Fluticasone [Advair 100Mcg/50Mcg -] 1 inh PO BID 07/13/16 Atorvastatin Ca [Lipitor] 10 mg PO HS #30 tablet 07/16/16 Ferrous Sulfate [Feosol] 325 mg PO BIDWM #120 ud 07/16/16 Metoprolol Succinate [Toprol XL -] 50 mg PO DAILY #30 tab.sr.24h 07/16/16 Prednisone See Taper PO ONCE #12 tablet 07/16/16 Family Disease History - Family Disease History Other Family History: non-contributory Review of Systems - Review of Systems Constitutional: denies: Chills, Fever Eyes: denies: Recent Change in Vision HENT: denies: Nasal Congestion, Throat Pain Neck: denies: Stiffness, Tenderness Cardiovascular: reports: Edema, Shortness of Breath. denies: Chest Pain, Palpitations Respiratory: reports: Cough, SOB on Exertion, Wheezing. denies: Hemoptysis Gastrointestinal: denies: Abdominal Pain, Nausea, Vomiting Genitourinary: denies: Dysuria, Hematuria Neurological: denies: Dizziness, Headache Physical Exam Vital Sings: Vital Signs Temperature 98.3 F 07/25/16 08:25 Pulse Rate 86 07/25/16 08:25 Respiratory Rate 18 07/25/16 08:26 Blood Pressure 145/88 07/25/16 08:25 O2 Sat by Pulse Oximetry (%) 99 07/25/16 08:26 Constitutional: Yes: Calm Eyes: Yes: Conjunctiva Clear, EOM Intact HENT: Yes: Atraumatic, Normocephalic Neck: Yes: Supple, Trachea Midline Cardiovascular: Yes: Regular Rate and Rhythm Respiratory: Yes: Diminished (distant breath sounds). No: Rales, Rhonchi, Wheezes ...Clubbing: No Gastrointestinal: Yes: Normal Bowel Sounds, Soft. No: Tenderness Edema: Yes (trace) Labs: CBC, BMP 07/20/16 06:10 Imaging - Results Chest X-ray: Report Reviewed, Image Reviewed (pulmonary vascular congestion, small effusions) Assessment/Plan Paroxysmal Atrial Fibrillation with RVR now in sinus rhythm Acute on Chronic LV Diastolic Heart Failure CAD COPD Exacerbation Chronic Hypoxic Respiratory Failure HTN DM Parkinsons's Disease Hyperthyroidism - lasix as needed - monitor urine output, creatinine - will obtain repeat CXR today - inhaled bronchodilators - on medrol, no bronchospasm noted on exam today, can likely change steroids to PO in AM if continues to improve - O2 to keep SpO2 >90% - rate/rhythm controlled - continue anticoagulation Thank you for this consult Osiel Powell MD
[2016-07-25] MEDS ORDERED: INSULIN (NOVOLOG) ASPART 100 UNITS/ML 10ML VIAL ONE (16:59)
[2016-07-25] MEDS: PRAMIPEXOLE DIHYDROCHLORIDE 0.5 MG TABLET PO SCH (21:40)
[2016-07-25] MEDS: ATORVASTATIN CA 10 MG TABLET (FP) PO SCH (21:40)
[2016-07-25] MEDS: NORTRIPTYLINE HCL 10 MG CAPSULE PO SCH (21:41)
[2016-07-26] MEDS: METHIMAZOLE 5 MG TABLET (FP) PO SCH ×2 (06:24→13:40)
[2016-07-26] MEDS: metFORMIN HCL 500 MG TABLET (FP) PO SCH (06:24)
[2016-07-26] MEDS: INSULIN SLIDING SCALE (NOVOLOG) 1 VIAL SQ SCH ×2 (06:25→11:10)
[2016-07-26 07:23] LABS: MCH 20.6 pg (25.7-33.7); MCHC 29.3 g/dl (32.0-36.0); MEAN CELL VOLUME 70.4 fl (80-96); MEAN PLT VOLUME 8.8 fl (7.5-11.1); NEUTROPHILS 88.4 % (42.8-82.8); PLATELET COUNT 301 K/MM3 (134-434); RDW 26.3 % (11.6-15.6); WHITE BLOOD COUNT 9.4 K/mm3 (4.0-10.0)
[2016-07-26 08:14] LABS: CALCIUM 9.3 mg/dL (8.5-10.1); CREATININE 0.5 mg/dL (0.55-1.02)
[2016-07-26 09:10] LABS: ANISOCYTOSIS 2+; HYPOCHROMIA 4+; MICROCYTOSIS 2+
[2016-07-26 09:11] LABS: TARGET CELLS 1+
[2016-07-26] MEDS: FERROUS SO4 325 MG TABLET (FP) PO SCH (09:27)
[2016-07-26] MEDS: CALCIUM (OYSTER SHELL) 500 MG TABLET (FP) PO SCH (09:27)
[2016-07-26] MEDS: SOTALOL HCL 80 MG TABLET (FP) PO SCH (09:27)
[2016-07-26] MEDS: PREGABALIN 75 MG CAPSULE PO SCH (09:28)
[2016-07-26] MEDS: OMEGA-3 ACID ETHYL ESTERS (FATTY-ACIDS) 1 GM CAPSULE (FP) PO SCH (09:28)
[2016-07-26] MEDS: APIXABAN 2.5 MG TABLET PO SCH (09:28)
[2016-07-26] MEDS: PANTOPRAZOLE 40 MG TABLET (FP) PO SCH (09:28)
[2016-07-26] MEDS: ESCITALOPRAM OXALATE 10 MG TABLET (FP) PO SCH (09:28)
[2016-07-26] MEDS: methylPREDNISolone NA SUCC 40 MG/1 ML VIAL IVPB SCH (09:28)
[2016-07-26] MEDS: ACLIDINIUM BROMIDE 400 MCG/INH AERO.POWD IH SCH (09:29)
[2016-07-26] MEDS: FLUTICASONE/SALMETEROL 100 MCG/50 MCG DISKUS IH SCH (09:35)
[2016-07-26] MEDS: SUCRALFATE 1 GM TABLET (FP) PO SCH (09:57)
[2016-07-26] MEDS: ROFLUMILAST 500 MCG TABLET PO SCH (09:57)
--- NOTE | 2016-07-26 10:31 | DS ---
Physical Examination Vital Signs: Vital Signs Temperature 97.9 F 07/26/16 02:00 Pulse Rate 82 07/26/16 06:00 Respiratory Rate 20 07/26/16 06:00 Blood Pressure 153/84 07/26/16 06:00 O2 Sat by Pulse Oximetry (%) 98 07/25/16 22:00 Labs: CBC, BMP 07/26/16 05:35 07/26/16 05:35 Discharge Summary Reason For Visit: ATRIAL FIB/RAPID VENTRICULAR RESPONSE Current Active Problems Atrial fibrillation with rapid ventricular response (Acute) Hyperthyroidism, subclinical (Chronic) Premature ventricular beat (Chronic) Hospital Course: 85 year old woman with HTN, DM, upper GI bleed due to gastric AVM, parkinson's disease, COPD admitted for new onset atriall fibrillation due to hyperthyroidism afib -now on sotolol as per cardio attending recs -no further episodes of rapid afib -started on eliquis by cardio attending -CXR shows very small right sided effusion -has follow up visit scheduled for tomorrow at cardio office COPD -no wheezing on exam -pt states her breathing is at baseline and that she ambulated well today -cont Advair -cont spiriva Condition: Stable - Instructions Diet, Activity, Other Instructions: Instruction for Continuing Care Medications: * Your medication for the heart has changed: 1. You will no longer take Toprol XL. Instead, you will start taking Sotalol 80mg twice a day - call your doctor if you have palpations 2. You will take a blood thinner from now on, the name of the blood thinner is "Eliquis", you take 2.5mg twice a day - call your doctor if you have explained bruise or bleeding 3. You will take Lovaza 2mg twice a day and Lipitor 10mg once every day. Medical Management: * You have irregular heart beat and hyperactive thyroid gland 1. Please inform your health care providers of the new diagnoses 2. Please follow up with your heart doctor (Dr. Tucker) and family doctor within a week Referrals: Liam Michel [Primary Care Provider] - 1 Week Disposition: HOME - Home Medications Comprehensive Discharge Medication List: Ambulatory Orders Tiotropium [place] [Spiriva] 1 inh PO BID 07/19/14 Roflumilast [Daliresp -] 500 mcg PO DAILY #30 tablet 07/21/14 Metformin HCl 500 mg PO DAILY 05/09/15 Pregabalin [Lyrica -] 75 mg PO BID 05/09/15 Albuterol 0.083% Nebulizer Lisa [Ventolin 0.083% Nebulizer Soln -] 1 neb NEB BID 12/01/15 Aspirin [ASA -] 81 mg PO DAILY 04/18/16 Calcium Carbonate [Calcium] 500 mg PO BID 04/18/16 Escitalopram Oxalate [Lexapro -] 10 mg PO BID 04/18/16 Pantoprazole Sodium [Protonix] 40 mg PO DAILY 04/18/16 Pramipexole Di-HCl [Mirapex] 0.5 mg PO HS 04/18/16 Sucralfate [Carafate] 1 gm PO BID 04/18/16 [place]-3 Acid Ethyl Esters [Lovaza -] 2 gm PO BID cap 04/21/16 Benzonatate [Tessalon Perle -] 200 mg PO BID 05/04/16 Levalbuterol Tartrate [Xopenex Hfa] 15 gm IH DAILY PRN 05/04/16 Nortriptyline HCl [Pamelor -] 30 mg PO HS 05/04/16 Prednisone 5 mg PO BID 07/13/16 Salmeterol/Fluticasone [Advair 100Mcg/50Mcg -] 1 inh PO BID 07/13/16 Atorvastatin Ca [Lipitor] 10 mg PO HS #30 tablet 07/16/16 Ferrous Sulfate [Feosol] 325 mg PO BIDWM #120 ud 07/16/16 Prednisone See Taper PO ONCE #12 tablet 07/16/16 Apixaban [Eliquis -] 2.5 mg PO BID #60 tablet 07/26/16 Methimazole [Tapazole -] 15 mg PO TID #90 tablet 07/26/16 Sotalol HCl [Betapace -] 80 mg PO BID #60 tablet 07/26/16 This patient is new to me today: No Emergency Visit: Yes ED Registration Date: 07/19/16 Care time: The patient presented to the Emergency Department on the above date and was hospitalized for further evaluation of their emergent condition. Critical Care patient: No - Discharge Referral Referred to [facility] No
[2016-07-26] MEDS: ALBUTEROL SO4 0.083% IH SOL 2.5 MG/3 ML VIAL.NEB. NEB SCH (11:11)
[2016-07-26 11:15] VITALS: PULSE 76
--- NOTE | 2016-07-26 11:32 | MSN ---
Progress Note (SOAP) - Subjective Chief Complaint: referred by sap trainer for irregularly irregular HR History of Present Illness: The patient was seen and examined at the bedside. She was alert and oriented, in no acute distress. The patient denied fever, chills, n/v/d/c, SOB, palpitations, or CP. - Current Medications Current Medications: Active Medications Acetaminophen (Tylenol -) 650 mg PO Q4H PRN PRN Reason: FEVER OR PAIN Aclidinium [place] (Tudorza -) 1 puff IH BID [facility] Last Admin: 07/26/16 09:29 Dose: 1 puff Albuterol Sulfate (Ventolin 0.083% Nebulizer Soln -) 1 amp NEB BID [facility] Last Admin: 07/26/16 11:11 Dose: 1 amp Albuterol/Ipratropium (Duoneb -) 1 amp NEB Q4H PRN PRN Reason: SHORTNESS OF BREATH Last Admin: 07/23/16 17:53 Dose: 1 amp Apixaban (Eliquis -) 2.5 mg PO BID [facility] Last Admin: 07/26/16 09:28 Dose: 2.5 mg Atorvastatin Calcium (Lipitor -) 10 mg PO HS [facility] Last Admin: 07/25/16 21:40 Dose: 10 mg Calcium Carbonate (Os-Moncho 500mg -) 500 mg PO BID [facility] Last Admin: 07/26/16 09:27 Dose: 500 mg Escitalopram Oxalate (Lexapro -) 10 mg PO BID [facility] Last Admin: 07/26/16 09:28 Dose: 10 mg Ferrous Sulfate (Feosol -) 325 mg PO BIDWM [facility] Last Admin: 07/26/16 09:27 Dose: 325 mg Insulin Aspart (Novolog Vial Sliding Scale -) 1 vial SQ ACHS [facility] PRN Reason: Protocol Last Admin: 07/26/16 11:10 Dose: Not Given Metformin HCl (Glucophage -) 500 mg PO DAILY@0700 [facility] Last Admin: 07/26/16 06:24 Dose: 500 mg Methimazole (Tapazole -) 15 mg PO TID [facility] Last Admin: 07/26/16 06:24 Dose: 15 mg Methylprednisolone Sodium Succinate (Solu-Medrol -) 40 mg IVPB BID [facility] Last Admin: 07/26/16 09:28 Dose: 40 mg Metoprolol Tartrate (Lopressor Injection -) 5 mg IVPUSH Q4H PRN PRN Reason: HYPERTENSION Last Admin: 07/20/16 09:06 Dose: 5 mg Non-Formulary Medication (Benzonatate) 200 mg PO BID [facility] Non-Formulary Medication (Levalbuterol Tartrate [Xopenex Hfa]) 15 gm IH DAILY PRN PRN Reason: SHORTNESS OF BREATH Nortriptyline HCl (Pamelor -) 30 mg PO [facility] Last Admin: 07/25/16 21:41 Dose: 30 mg [id number] Ethyl Esters (Lovaza -) 2 gm PO BID [facility] Last Admin: 07/26/16 09:28 Dose: 2 gm Pantoprazole Sodium (Protonix -) 40 mg PO DAILY [facility] Last Admin: 07/26/16 09:28 Dose: 40 mg Pramipexole Dihydrochloride (Mirapex -) 0.5 mg PO [facility] Last Admin: 07/25/16 21:40 Dose: 0.5 mg Pregabalin (Lyrica -) 75 mg PO BID [facility] Last Admin: 07/26/16 09:28 Dose: 75 mg Roflumilast (Daliresp -) 500 mcg PO DAILY [facility] Last Admin: 07/26/16 09:57 Dose: 500 mcg Fluticasone/Salmeterol (Advair 100mcg/50mcg -) 1 puff IH BID [facility] Last Admin: 07/26/16 09:35 Dose: 1 puff Sotalol HCl (Betapace -) 80 mg PO BID [facility] Last Admin: 07/26/16 09:27 Dose: 80 mg Sucralfate (Carafate -) 1 gm PO BID [facility] Last Admin: 07/26/16 09:57 Dose: 1 gm - Objective Vital Signs: Vital Signs Temperature 98.1 F 07/26/16 10:00 Pulse Rate 76 07/26/16 10:00 Respiratory Rate 18 07/26/16 10:00 Blood Pressure 144/73 07/26/16 10:00 O2 Sat by Pulse Oximetry (%) 99 07/26/16 10:00 Constitutional: Yes: Well Nourished, No Distress, Calm Cardiovascular: Yes: WNL, Regular Rate and Rhythm Respiratory: Yes: Rhonchi (b/l, R>L) Extremities: Yes: WNL Peripheral Pulses WNL: Yes Peripheral Pulses: Left Doralis Pedis: 2+, Right Dorsalis Pedis: 2+ Edema: No Psychiatric: Yes: WNL Labs Lab Results: CBC, BMP 07/26/16 05:35 07/26/16 05:35 Laboratory Results - last 24 hr 07/25/16 07/25/16 07/25/16 11:40 15:58 21:35 WBC RBC Hgb Hct MCV MCHC RDW Plt Count MPV Neutrophils % Lymphocytes % Monocytes % Eosinophils % Basophils % Hypochromic-Microcytic Basophilic Stippling Anisocytosis Microcytosis Macrocytosis Target Cells Morphology Comment Sodium Potassium Chloride Carbon Dioxide Anion Gap BUN Creatinine POC Glucometer 132 203 146 Random Glucose Calcium 07/26/16 07/26/16 07/26/16 05:35 05:35 05:43 WBC 9.4 D RBC 4.71 Hgb 9.7 L Hct 33.2 MCV 70.4 L MCHC 29.3 L RDW 26.3 H Plt Count 301 D MPV 8.8 Neutrophils % 88.4 H Lymphocytes % 8.5 D Monocytes % 3.1 L Eosinophils % 0.0 D Basophils % 0.0 Hypochromic-Microcytic 4+ Basophilic Stippling 1+ Anisocytosis 2+ Microcytosis 2+ Macrocytosis 1+ Target Cells 1+ Morphology Comment Slide scanned Sodium 142 Potassium 4.2 Chloride 101 Carbon Dioxide 39 H D Anion Gap 2 L BUN 25 H D Creatinine 0.5 L D POC Glucometer 206 Random Glucose 204 H Calcium 9.3 07/26/16 11:04 WBC RBC Hgb Hct MCV MCHC RDW Plt Count MPV Neutrophils % Lymphocytes % Monocytes % Eosinophils % Basophils % Hypochromic-Microcytic Basophilic Stippling Anisocytosis Microcytosis Macrocytosis Target Cells Morphology Comment Sodium Potassium Chloride Carbon Dioxide Anion Gap BUN Creatinine POC Glucometer 138 Random Glucose Calcium Imaging - Results Chest X-ray: Report Reviewed (Impression: Interval small right and questionable minimal left pleural effusion) Assessment/Plan A 86 y/o F with a significant pmhx of CAD, COPD, HTN, HLD, microcytic anemia and DMII presents as a referral from her sap trainer's office where she had an irregularly irregular heart rhythm. She was found to have new onset of atrial fibrillation with RVR, most likely secondary to subclinical hyperthyroidism. 1. A-fib with RVR most likely secondary to subclinical hyperthyroidism * patient is on Sotalol * rate and rhythm have been mostly stable * air sampling and monitoring: brief episodes of irregular rhythm and tachycardia * patient hemodynamically stable * cont. Sotalol * cont eliquis * f/u sap trainer as outpatient 2. Hyperthyroidism * subclinical * cont. methimazole * f/u endocrine at outpatient 3. New small Rt sided pleural effusion * patient is at 98% on 2L O2 nasal cannula * patient's rhonchi have improved * patient's last echo in 06/2016 showed normal EF-->most likely not due to HF * very small effusion so don't need to tap 4. CAD * stable * d/c ASA because of bleeding risk * cont lipitor 5. COPD * rhonchi improved * cont. solumedrol * cont. advair, xopenex, daliresp, spiriva * nasal O2 at home 6. DM II * cont metformin 7. HTN * BP has be in 140s systolic as inpatient * cont sotalol * PCP can adjust BP meds as outpatient if necessary 8. HLD * cont. lipitor and lovaza 9. GERD * cont. protonix and carafate 10. Parkinson's disease * cont. mirapex 11. Depression * cont. pamelor * cont. lexapro 12. Herpetic neuralgia * cont. lyrica Dispo: d/c today.
[2016-07-26 13:32] VITALS: BP 156/79; TEMP 97.6
--- NOTE | 2016-07-26 13:45 | PN ---
Progress Note (short form) - Note Progress Note: S: 86 year old female with history of paroxysmal afib, hypertension, HVCD , hyperthyroidism, NIDDM, Parkinsonism, anemia, and hx of left ventricular diastolic disfunction. Patient was ambulating in the room without experiencing shortness of breath. Denies having chest pain or discomfort either at rest or with exertion. No palpitations were reported and appears to be in sinus rhythm. Discharge is being contemplated. Active Medications Generic Name Dose Route Start Last Admin Trade Name Freq PRN Reason Stop Dose Admin Acetaminophen 650 mg 07/19/16 16:35 Tylenol - PO Q4H PRN FEVER OR PAIN Aclidinium [place] 1 puff 07/19/16 22:00 07/26/16 09:29 Tudorza - IH 1 puff BID MICHAEL Administration Albuterol Sulfate 1 amp 07/19/16 22:00 07/26/16 11:11 Ventolin 0.083% Nebulizer Soln - NEB 1 amp BID MICHAEL Administration Albuterol/Ipratropium 1 amp 07/22/16 13:34 07/23/16 17:53 Duoneb - NEB 1 amp Q4H PRN Administration SHORTNESS OF BREATH Apixaban 2.5 mg 07/19/16 15:00 07/26/16 09:28 Eliquis - PO 2.5 mg BID MICHAEL Administration Atorvastatin Calcium 10 mg 07/19/16 22:00 07/25/16 21:40 Lipitor - PO 10 mg HS MICHAEL Administration Calcium Carbonate 500 mg 07/19/16 22:00 07/26/16 09:27 Os-Moncho 500mg - PO 500 mg BID MICHAEL Administration Escitalopram Oxalate 10 mg 07/19/16 22:00 07/26/16 09:28 Lexapro - PO 10 mg BID MICHAEL Administration Ferrous Sulfate 325 mg 07/19/16 17:30 07/26/16 09:27 Feosol - PO 325 mg BIDWM MICHAEL Administration Insulin Aspart 1 vial 07/19/16 22:00 07/26/16 11:10 Novolog Vial Sliding Scale - SQ Not Given ACHS [facility] Protocol Metformin HCl 500 mg 07/23/16 07:00 07/26/16 06:24 Glucophage - PO 500 mg DAILY@0700 MICHAEL Administration Methimazole 15 mg 07/21/16 14:00 07/26/16 13:40 Tapazole - PO 15 mg TID MICHAEL Administration Methylprednisolone Sodium Succinate 40 mg 07/23/16 16:00 07/26/16 09:28 Solu-Medrol - IVPB 40 mg BID MICHAEL Administration Metoprolol Tartrate 5 mg 07/19/16 18:23 07/20/16 09:06 Lopressor Injection - IVPUSH 5 mg Q4H PRN Administration HYPERTENSION Non-Formulary Medication 200 mg 07/19/16 22:00 Benzonatate PO BID MICHAEL Non-Formulary Medication 15 gm 07/19/16 17:27 Levalbuterol Tartrate [Xopenex Hfa] IH DAILY PRN SHORTNESS OF BREATH Nortriptyline HCl 30 mg 07/19/16 22:00 07/25/16 21:41 Pamelor - PO 30 mg HS MICHAEL Administration [place]-[employer]-[place] Ethyl Esters 2 gm 07/19/16 22:00 07/26/16 09:28 Lovaza - PO 2 gm BID MICHAEL Administration Pantoprazole Sodium 40 mg 07/19/16 17:30 07/26/16 09:28 Protonix - PO 40 mg DAILY MICHAEL Administration Pramipexole Dihydrochloride 0.5 mg 07/19/16 22:00 07/25/16 21:40 Mirapex - PO 0.5 mg HS MICHAEL Administration Pregabalin 75 mg 07/19/16 22:00 07/26/16 09:28 Lyrica - PO 75 mg BID MICHAEL Administration Roflumilast 500 mcg 07/19/16 17:45 07/26/16 09:57 Daliresp - PO 500 mcg DAILY MICHAEL Administration Fluticasone/Salmeterol 1 puff 07/19/16 22:00 07/26/16 09:35 Advair 100mcg/50mcg - IH 1 puff BID MICHAEL Administration Sotalol HCl 80 mg 07/21/16 13:30 07/26/16 09:27 Betapace - PO 80 mg BID MICHAEL Administration Sucralfate 1 gm 07/19/16 22:00 07/26/16 09:57 Carafate - PO 1 gm BID MICHAEL Administration O: 86 year old female was in no acute distress, no cyanosis, pallor, clubbing or jaundice. Last Vital Signs Temp Pulse Resp BP Pulse Ox 97.6 F 76 - Regular 20 156/79 99 07/26/16 13:30 01/04/17 13:30 07/26/16 13:30 07/26/16 13:30 07/26/16 10:00 NECK: Supple, no JVD, negative HJR, carotids were equal and upstrokes were normal, no thyromegaly appreciated. HEART: PMI was in the 5th intercostal space, no heaves or thrills, S1 and S2 were normal. No murmurs or gallops were appreciated. LUNGS: Clear on auscultation bilaterally. ABDOMEN: Soft, nontender, no hepatosplenomegaly appreciated, and no palpable masses were felt. EXTREMITIES: No calf tenderness or dependent edema. Pulses are normal. CBC, BMP 07/26/16 05:35 07/26/16 05:35 Laboratory Results - last 24 hr 07/25/16 07/25/16 07/26/16 15:58 21:35 05:35 WBC 9.4 D RBC 4.71 Hgb 9.7 L Hct 33.2 MCV 70.4 L MCHC 29.3 L RDW 26.3 H Plt Count 301 D MPV 8.8 Neutrophils % 88.4 H Lymphocytes % 8.5 D Monocytes % 3.1 L Eosinophils % 0.0 D Basophils % 0.0 Hypochromic-Microcytic 4+ Basophilic Stippling 1+ Anisocytosis 2+ Microcytosis 2+ Macrocytosis 1+ Target Cells 1+ Morphology Comment Slide scanned Sodium Potassium Chloride Carbon Dioxide Anion Gap BUN Creatinine POC Glucometer 203 146 Random Glucose Calcium 07/26/16 07/26/16 07/26/16 05:35 05:43 11:04 WBC RBC Hgb Hct MCV MCHC RDW Plt Count MPV Neutrophils % Lymphocytes % Monocytes % Eosinophils % Basophils % Hypochromic-Microcytic Basophilic Stippling Anisocytosis Microcytosis Macrocytosis Target Cells Morphology Comment Sodium 142 Potassium 4.2 Chloride 101 Carbon Dioxide 39 H D Anion Gap 2 L BUN 25 H D Creatinine 0.5 L D POC Glucometer 206 138 Random Glucose 204 H Calcium 9.3 Impression: 1. Paroxysmal afib, currently in sinus rhythm. 2. Adult onset diabetes mellitus. 3. Hypertension/ HVCD. 4. Hyperlipidemia. 5. Hyperthyroidism. 6. COPD. 7. Anemia, most likely related to gastric AVM. Recommendations: 1. Close monitoring of hemaglobin/hematocrit. 2. In view of anemia and hx of gastric AVM, shelter anticoagulation will need to be re-evaluated on an outpatient basis. 3. Follow up with PCP upon discharge. CC: Dr. Ok Roberts Documentation prepared by Aleta Russo, acting as medical aides teacher for Junior Puckett MD.
--- NOTE | 2016-07-27 16:31 | EKG ---
Test Reason : Blood Pressure : / mmHG Vent. Rate : 080 BPM Atrial Rate : 080 BPM P-R Int : 126 ms QRS Dur : 076 ms QT Int : 386 ms P-R-T Axes : 017 -19 006 degrees QTc Int : 445 ms SINUS RHYTHM WITH PREMATURE ATRIAL COMPLEXES NONSPECIFIC T WAVE ABNORMALITY ABNORMAL ECG WHEN COMPARED WITH ECG OF 23-JUL-2016 10:03, NO SIGNIFICANT CHANGE WAS FOUND Confirmed by ANSLEY BALL, JULIENNE ([id number]) on 07/27/2016 4:30:57 PM Referred By: SHARON CASIANO Confirmed By:JULIENNE PANCHAL MD
== END 2016-07-26 13:59 | disposition home or self-care (01) | DRG 309 ==
LOC: JER 12:17 → JERBED 19:48 → J4W 07-20 12:44
PROVIDERS: ADMIT Internal Medicine; ATTEND Internal Medicine
DX: I48.0 Paroxysmal atrial fibrillation (principal); B02.29 Other postherpetic nervous system involvement; I50.32 Chronic diastolic (congestive) heart failure; J44.1 Chronic obstructive pulmonary disease with (acute) exacerbation; J96.11 Chronic respiratory failure with hypoxia; I10 Essential (primary) hypertension; D64.9 Anemia, unspecified; K27.9 Peptic ulcer, site unspecified, unspecified as acute or chronic, without hemorrhage or perforation; K21.9 Gastro-esophageal reflux disease without esophagitis; E11.9 Type 2 diabetes mellitus without complications; G20 Parkinson's disease; F32.89 Other specified depressive episodes; I25.10 Atherosclerotic heart disease of native coronary artery without angina pectoris; E83.42 Hypomagnesemia; K29.60 Other gastritis without bleeding; E05.80 Other thyrotoxicosis without thyrotoxic crisis or storm; I11.0 Hypertensive heart disease with heart failure; Q27.33 Arteriovenous malformation of digestive system vessel; Z99.81 Dependence on supplemental oxygen; Z87.891 Personal history of nicotine dependence
CPT/HCPCS: 36415; 71010-TC; 76536-TC; 80048; 80053; 81003; 81015; 82550; 83735; 84100; 84439; 84443; 84479; 84484; 85025; 85610; 85730; 86850; 86900; 86901; 87086; 93005; 93010; 94640; 99285-25; J1644

== ENCOUNTER 2016-07-28 18:40 | Inpatient (IN) | payer OTHER ==
--- NOTE | 2016-07-28 20:11 | PDOC ---
History of Present Illness - General History Source: Patient, Family Exam Limitations: No Limitations - History of Present Illness Initial Comments: 07/28/16 20:45 The patient is an 86-year-old female, accompanied by family member with a significant past medical history of hypertension, atrial fibrillation, anemia, peptic ulcer disease, GERD, COPD, Parkinsons, and thyroid disorder who presents to the emergency department complaining of shortness of breath, audible wheezing and mucous in lungs that began this morning. As per family member, the patient has been very sleepy, weak, and has had difficulty walking. The patient denies any associated fever, chills, or cough. The patients daughter reports that the patient presented to the emergency department on 07/18 and was admitted for atrial fibrillation, and discharged on 07/25/16. The patient is on eloquis BID. Allergies: NKDA Past surgical history: Left femur fracture surgery. Right elbow fracture surgery Primary Care Physician: Dr. Ysabel Aguirre [phone] Soft Sugar Operator Head: Dr. Jd Gaona Industrial Technologist: Dr. Bernie Sharif [phone] <Florence Quesada - Last Filed: 07/28/16 22:40> <Chhaya Sheth - Last Filed: 07/29/16 01:09> - General Chief Complaint: Shortness of Breath Stated Complaint: SOB Time Seen by Provider: 07/28/16 19:48 Past History <Florence Quesada - Last Filed: 07/28/16 22:40> - Past Medical History Anemia: Yes Asthma: No Cancer: No Cardiac Disorders: Yes (ARRHYTHMIA) CVA: No COPD: Yes (PT USES O2 AT HOME) CHF: No Dementia: No Diabetes: Yes GI Disorders: Yes (GERD/R/O GI BLD) Disorders: No HTN: Yes Hypercholesterolemia: No Liver Disease: No Seizures: No Thyroid Disease: No - Surgical History Abdominal Surgery: No Appendectomy: No Cardiac Surgery: No Cholecystectomy: No Lung Surgery: No Neurologic Surgery: No Orthopedic Surgery: Yes (FX LEFT FEMUR WITH PINNING/RIGHT ELBOW FX 1999S) - Immunization History Immunization Up to Date: Yes - Psycho/Social/Smoking Cessation Hx Anxiety: No Suicidal Ideation: No Smoking History: Former smoker Have you smoked in the past 12 months: No If you are a former smoker, when did you quit?: 15 YRS Information on smoking cessation initiated: No Hx Alcohol Use: No Drug/Substance Use Hx: No Substance Use Type: None Hx Substance Use Treatment: No <Chhaya Sheth - Last Filed: 07/29/16 01:09> - Past Medical History Allergies/Adverse Reactions: Allergies Allergy/AdvReac Type Severity Reaction Status Date / Time No Known Allergies Allergy Verified 07/28/16 18:41 Home Medications: Ambulatory Orders Tiotropium [place] [Spiriva] 1 inh PO BID 07/19/14 Roflumilast [Daliresp -] 500 mcg PO DAILY #30 tablet 07/21/14 Metformin HCl 500 mg PO DAILY 05/09/15 Pregabalin [Lyrica -] 75 mg PO BID 05/09/15 Albuterol 0.083% Nebulizer Lisa [Ventolin 0.083% Nebulizer Soln -] 1 neb NEB BID 12/01/15 Aspirin [ASA -] 81 mg PO DAILY 04/18/16 Calcium Carbonate [Calcium] 500 mg PO BID 04/18/16 Escitalopram Oxalate [Lexapro -] 10 mg PO BID 04/18/16 Pantoprazole Sodium [Protonix] 40 mg PO DAILY 04/18/16 Pramipexole Di-HCl [Mirapex] 0.5 mg PO HS 04/18/16 Sucralfate [Carafate] 1 gm PO BID 04/18/16 [place]-3 Acid Ethyl Esters [Lovaza -] 2 gm PO BID cap 04/21/16 Benzonatate [Tessalon Perle -] 200 mg PO BID 05/04/16 Levalbuterol Tartrate [Xopenex Hfa] 15 gm IH DAILY PRN 05/04/16 Nortriptyline HCl [Pamelor -] 30 mg PO HS 05/04/16 Prednisone 5 mg PO BID 07/13/16 Salmeterol/Fluticasone [Advair 100Mcg/50Mcg -] 1 inh PO BID 07/13/16 Atorvastatin Ca [Lipitor] 10 mg PO HS #30 tablet 07/16/16 Ferrous Sulfate [Feosol] 325 mg PO BIDWM #120 ud 07/16/16 Apixaban [Eliquis -] 2.5 mg PO BID #60 tablet 07/26/16 Methimazole [Tapazole -] 15 mg PO TID #90 tablet 07/26/16 Sotalol HCl [Betapace -] 80 mg PO BID #60 tablet 07/26/16 Review of Systems - Review of Systems Able to Perform ROS?: Yes Comments:: 07/28/16 20:46 GENERAL/CONSTITUTIONAL: +Weakness. No fever or chills.. HEAD, EYES, EARS, NOSE AND THROAT: No change in vision. No ear pain or discharge. No sore throat. CARDIOVASCULAR: +Shortness of Breath. No chest pain. RESPIRATORY: + Wheezing. No cough or hemoptysis GASTROINTESTINAL: No nausea, vomiting, diarrhea or constipation. GENITOURINARY: No dysuria, frequency, or change in urination. MUSCULOSKELETAL: + Difficulty walking. No joint or muscle swelling or pain. No neck or back pain. SKIN: No rash NEUROLOGIC: No headache, vertigo, loss of consciousness, or change in strength/ sensation. ENDOCRINE: No increased thirst. No abnormal weight change. HEMATOLOGIC/LYMPHATIC: No anemia, easy bleeding, or history of blood clots. ALLERGIC/IMMUNOLOGIC: No hives or skin allergy. <Florence Quesada - Last Filed: 07/28/16 22:40> *Physical Exam - Vital Signs Last Vital Signs Temp Pulse Resp BP Pulse Ox 98.3 F 77 20 158/83 100 07/28/16 18:43 07/28/16 18:43 07/28/16 18:43 07/28/16 18:43 07/28/16 18:43 - Physical Exam Comments: 07/28/16 20:47 GENERAL: The patient is alert and oriented X3, and in no acute distress. HEAD: Normal with no signs of trauma. EYES: Pupils equal, round and reactive to light, extraoccular movements intact, sclera anicteric, conjunctiva clear with no pallor. ENT: Ears normal, nares patent, oropharynx clear without exudates. Moist mucous membranes. NECK: Normal range of motion, supple without lymphadenopathy, JVD, or masses. LUNGS: +Bilateral rhonchi and rales at bases. +Audible ronchi upon breathing. No wheezing/crackles. HEART: +Irregularly irregular. Normal S1 and S2 without murmur or rub. ABDOMEN: Soft/nontender/nondistended. BS wnl. No guarding or rebound. No palpable masses. No hepatosplenomegaly. EXTREMITIES: + Edema in left calf more than right calf. Normal range of motion. No clubbing or cyanosis. No cords, erythema, or tenderness. MUSCULOSKELETAL: +Plate in right femur. SKIN: Warm, Dry, normal turgor, no rashes or lesions noted. NEUROLOGICAL: Cranial nerves II through XII grossly intact. Normal speech, normal gait. PSYCH: Normal mood, normal affect. <Florence Quesada - Last Filed: 07/28/16 22:40> - Vital Signs Last Vital Signs Temp Pulse Resp BP Pulse Ox 98.3 F 77 20 158/83 100 07/28/16 18:43 07/28/16 18:43 07/28/16 18:43 07/28/16 18:43 07/28/16 18:43 <Chhaya Sheth - Last Filed: 07/29/16 01:09> ED Treatment Course - LABORATORY CBC & Chemistry Diagram: 07/28/16 21:00 07/28/16 21:00 <Florence Quesada - Last Filed: 07/28/16 22:40> - LABORATORY CBC & Chemistry Diagram: 07/28/16 21:00 07/28/16 21:00 <Chhaya Sheth - Last Filed: 07/29/16 01:09> Medical Decision Making - Medical Decision Making 07/28/16 22:02 No DVT in legs bilaterally, as per US legs bilaterally; Patient is awaiting CXR. 07/29/16 01:05 Pt came to the ER with increased SOB and rales and rhonchi audible when she breathes. She has a PMD who admits to hsopitalist service. Pt is afebrile and she has a progression of her BNP from 890s to 5500s. She will be treated with IV Lasix and admitted to telemetry observation bed, as she has acute CHF exacerbation. Pt was diagnosed with afib over the past 2 weeks and she was just started on Eliquis; pt seems to be suffering with heart failure likely secondary to her atrial fibrillation. Pt has no other complaints. I noted her leg swelling left >> right, and ordered a duplex doppler study, as she was recently immobile in a hospital bed for over a week. DVT was ruled out. <Chhaya Sheth - Last Filed: 07/29/16 01:09> *DC/Admit/Observation/Transfer - Attestations Scribe Attestion: 07/28/16 20:48 Documentation prepared by Florence Quesada, acting as medical insurance claims specialist for Chhaya Sheth MD. <Florence Quesada - Last Filed: 07/28/16 22:40> - Discharge Dispostion Admit: Yes <Chhaya Sheth - Last Filed: 07/29/16 01:09> Diagnosis at time of Disposition: CHF (congestive heart failure), CHF exacerbation - Referrals Referrals: Ysabel Wagner MD [Primary Care Provider] - Addendum entered and electronically signed by Florence Quesada SCRIBE 07/29/16 05:32: ED Treatment Course - LABORATORY CBC & Chemistry Diagram: 07/28/16 21:00 07/28/16 21:00 - ADDITIONAL ORDERS Additional order review: Laboratory Results 07/28/16 07/28/16 21:00 21:00 Sodium 143 Potassium 3.8 Chloride 98 Carbon Dioxide 43 H Anion Gap 2 L BUN 14 D Creatinine 0.5 L Creat Clearance w eGFR > 60 Random Glucose 198 H Calcium 8.3 L Total Bilirubin 0.3 D AST 19 D ALT 48 D Alkaline Phosphatase 75 Creatine Kinase 30 Troponin I 0.03 B-Natriuretic Peptide 5504.18 H Cancelled Total Protein 6.1 L Albumin 2.9 L 07/28/16 21:00 RBC 5.10 MCV 70.2 L MCHC 28.3 L RDW 27.1 H MPV 8.9 Neutrophils % 83.4 H Lymphocytes % 12.1 D Monocytes % 4.1 Eosinophils % 0.1 D Basophils % 0.3 D - RADIOLOGY Radiograph Interpretation: 07/29/16 05:27 EXAM: CXR INTERPRETED BY: Dr. Colon REVIEWED BY: Dr. Sheth IMPRESSION: Since 07/25/2016, there remains moderate cardiomegaly with unfolding of the aortic arch. Bilateral increased interstitial markings are again seen with suggestion of mild pulmonary venous congestion. There is now mild-to- moderate elevation of the left hemidiaphragm. Minimal pleural effusion is seen in the posterior costophrenic angle, the site of which is not clear on this exam. Degenerative changes in the thoracic spine. EXAM: US/DUPLEX VASCUL US-2LEGS INTERPRETED BY: Dr. Colon REVIEWED BY: Dr. Sheth IMPRESSION: There is no evidence of deep venous thromboses in both lower extremities. - Medications Given in the ED: ED Medications Discontinued Medications Generic Name Dose Route Start Last Admin Trade Name Freq PRN Reason Stop Dose Admin Furosemide 40 mg 07/28/16 22:38 07/28/16 23:02 Lasix Injection - IVPUSH 07/28/16 22:39 40 mg ONCE ONE Administration Methimazole 15 mg 07/29/16 02:00 07/29/16 02:59 Tapazole - PO 15 mg TID MICHAEL Administration
[2016-07-28 21:19] LABS: BASOPHIL 0.3 % (0-2.0); EOSINOPHIL 0.1 % (0-4.5); MCHC 28.3 g/dl (32.0-36.0); MEAN CELL VOLUME 70.2 fl (80-96); MEAN PLT VOLUME 8.9 fl (7.5-11.1); NEUTROPHILS 83.4 % (42.8-82.8); PLATELET COUNT 329 K/MM3 (134-434); RDW 27.1 % (11.6-15.6); WHITE BLOOD COUNT 14.6 K/mm3 (4.0-10.0)
[2016-07-28 21:23] LABS: MCH 19.9 pg (25.7-33.7)
[2016-07-28 21:52] LABS: ALBUMIN 2.9 g/dl (3.4-5.0); ANION GAP 2 (8-16); CALCIUM 8.3 mg/dL (8.5-10.1); CO2 43 mmol/L (21-32); CREATININE 0.5 mg/dL (0.55-1.02); GLUCOSE,RANDOM 198 mg/dL (74-106); SGOT/AST 19 U/L (15-37); SGPT/ALT 48 U/L (12-78)
[2016-07-28 22:02] LABS: ALK PHOS 75 U/L (45-117); BILIRUBIN,TOTAL 0.3 mg/dL (0.2-1.0); TOT PROT 6.1 g/dl (6.4-8.2); TROPONIN I 0.03 ng/ml (0.00-0.05)
[2016-07-28] MEDS ORDERED: FUROSEMIDE 40 MG/4 ML INJECTABLE VIAL IVPUSH ONE (22:38)
[2016-07-28] MEDS ORDERED: FUROSEMIDE 40 MG/4 ML INJECTABLE VIAL ONE (22:41)
--- NOTE | 2016-07-28 22:58 | PN ---
<Carmen Guevara - Last Filed: 07/28/16 22:57> Teaching Attending Note Name of Resident: Nicky Mejia <Gatito Holguin - Last Filed: 07/29/16 02:03> Teaching Attending Note ATTENDING PHYSICIAN STATEMENT I saw and evaluated the patient. I reviewed the resident's note and discussed the case with the resident. I agree with the resident's findings and plan as documented. SUBJECTIVE: 86-year-old female discharged 2 days prior for AFIB, presents to the emergency department complaining of shortness of breath, wheezing, and productive cough ( white sputum) for two days, accompanied by family member. As per family member, the patient has been lethargic (sleeping approximately 12 hours per day), weak, non-ambulatory, and has had a decreased appetite. As per patient's daughter, the patient was discharge with 5mg of prednisone BID despite being told she would be sent home on a medrol dose pack. The patient has appointments to see her primary care physician and shrimp picker on Sunday s/p previous discharge from the ED. The patient denies any sick contacts or recent travel, chest pain and palpitations, headaches and fever, abdominal pain, vomiting, diarrhea and digestive issues. Past Medical History: hypertension, atrial fibrillation, anemia, peptic ulcer disease, GERD, COPD (on home oxygen 2L), Parkinsons, and thyroid disorder. OBJECTIVE: Physical: Last Vital Signs Temp Pulse Resp BP Pulse Ox 98.3 F 77 20 158/83 100 07/28/16 18:43 07/28/16 18:43 07/28/16 18:43 07/28/16 18:43 07/28/16 18:43 GENERAL: Awake, alert, and fully oriented, in no acute distress HEENT: Atraumatic. PERRLA, EOMI. Moist mucosa. No JVD LUNGS: (+) Bilateral crackles predominately in lower left lobe, and diffuse wheezing. HEART: Regular rate and rhythm, normal S1 and S2, no murmurs, rubs or gallops, peripheral pulses normal and equal bilaterally. ABDOMEN: Soft, nontender, normoactive bowel sounds. No guarding, no rebound. No masses EXTREMITIES: Normal inspection, Normal range of motion, (+) trace bilateral lower extremity edema. No clubbing or cyanosis. NEUROLOGICAL: Cranial nerves II through XII grossly intact. Normal speech, gait not observed, no focal sensorimotor deficits SKIN: Warm, Dry, normal turgor, no rashes or lesions noted. CBCD WBC 14.6 K/mm3 (4.0-10.0) H D 07/28/16 21:00 RBC 5.10 M/mm3 (3.60-5.2) 07/28/16 21:00 Hgb 10.1 GM/dL (10.7-15.3) L 07/28/16 21:00 Hct 35.8 % (32.4-45.2) 07/28/16 21:00 MCV 70.2 fl (80-96) L 07/28/16 21:00 MCHC 28.3 g/dl (32.0-36.0) L 07/28/16 21:00 RDW 27.1 % (11.6-15.6) H 07/28/16 21:00 Plt Count 329 K/MM3 (134-434) 07/28/16 21:00 MPV 8.9 fl (7.5-11.1) 07/28/16 21:00 CMP Sodium 143 mmol/L (136-145) 07/28/16 21:00 Potassium 3.8 mmol/L (3.5-5.1) 07/28/16 21:00 Chloride 98 mmol/L (98-107) 07/28/16 21:00 Carbon Dioxide 43 mmol/L (21-32) H 07/28/16 21:00 Anion Gap 2 (8-16) L 07/28/16 21:00 BUN 14 mg/dL (7-18) D 07/28/16 21:00 Creatinine 0.5 mg/dL (0.55-1.02) L 07/28/16 21:00 Creat Clearance w eGFR > 60 (>60) 07/28/16 21:00 Calcium 8.3 mg/dL (8.5-10.1) L 07/28/16 21:00 Total Bilirubin 0.3 mg/dL (0.2-1.0) D 07/28/16 21:00 AST 19 U/L (15-37) D 07/28/16 21:00 ALT 48 U/L (12-78) D 07/28/16 21:00 Alkaline Phosphatase 75 U/L (45-117) 07/28/16 21:00 Total Protein 6.1 g/dl (6.4-8.2) L 07/28/16 21:00 Albumin 2.9 g/dl (3.4-5.0) L 07/28/16 21:00 IMAGING: Chest X-Ray Since 07/25/2016, there remains moderate cardiomegaly with unfolding of the aortic arch. Bilateral increased interstitial markings are again seen with suggestion of mild pulmonary venous congestion. There is now [id number] elevation of the left hemidiaphragm. Minimal pleural effusion is seen in the posterior costophrenic angle, the site of which is not clear on this exam. Degenerative changes in the thoracic spine ASSESSMENT AND PLAN: Admit for observation to telemetry 1) CHF exacerbation -Stat does of lasix 40 mg -Continue home medications -Monitor I and Os 2)COPD exacerbation -Oxygen 2L via nasal canula -Prednisone 40mg daily, stop home prednisone 5mg BID -Nebulization Q6h -Continue home medications Documentation prepared by Gatito Holguin, acting as medical observer for Carmen Guevara MD.
--- NOTE | 2016-07-28 23:10 | HP ---
CHIEF COMPLAINT: SOB PCP: HISTORY OF PRESENT ILLNESS: The patient is an 85 year old female with a past medical history of CAD, CHF, paroxysmal A.Fib., NIDDM, COPD, HTN, HLD, GERD, gastric AVM malformation, Parkinsonism, anemia and left ventricular diastolic disfunction is complaining of SOB that started after she was discharged from the hospital 07/25/16. Since then her daughter states that her mother has been lethargic and slept for 12 hours a day had decreased appetite. For the past 2 days she has productive cough with whitish sputum. She didn't follow up with her PCP and a Scoop Machine Operator yet. Patient has her baseline SOB from her COPD. She uses home oxygen 3 times a day and Albuterol PRN. She used it at home without any improvement. She was discharged home and advise to take Medrol pack but she didn't take it. No other complaints. Denies N/V, diarrhea, headaches, chest pain, palpitations, LOC.She denies fever, chills, chest pain, palpitations. She denies N/V, constipation, diarrhea, dizziness. Her daughter is present at bedside and history was taken mainly from her. PCP: Ysabel Aguirre ER course was notable for: (1)BNP (2)X-ray negative for acute changes Past Medical History: CAD, paroxysmal A.Fib., NIDDM, COPD, HTN, HLD, GERD, gastric AVM malformation, Parkinsonism, anemia and left ventricular diastolic disfunction Social History: Smoking:smoker 2-3 packs a day for at least 50 years Alcohol:No Drugs: No Family History: Noncontributory Allergies No Known Allergies Allergy (Verified 07/28/16 18:41) HOME MEDICATIONS: Medication Instructions Recorded Tiotropium [place] [Spiriva] 1 inh PO BID 07/19/14 Roflumilast [Daliresp -] 500 mcg PO DAILY #30 tablet 07/21/14 Metformin HCl 500 mg PO DAILY 05/09/15 Pregabalin [Lyrica -] 75 mg PO BID 05/09/15 Albuterol 0.083% Nebulizer Lisa 1 neb NEB BID 12/01/15 [Ventolin 0.083% Nebulizer Soln -] Aspirin [ASA -] 81 mg PO DAILY 04/18/16 Calcium Carbonate [Calcium] 500 mg PO BID 04/18/16 Escitalopram Oxalate [Lexapro -] 10 mg PO BID 04/18/16 Pantoprazole Sodium [Protonix] 40 mg PO DAILY 04/18/16 Pramipexole Di-HCl [Mirapex] 0.5 mg PO HS 04/18/16 Sucralfate [Carafate] 1 gm PO BID 04/18/16 [place]-3 Acid Ethyl Esters [Lovaza 2 gm PO BID cap 04/21/16 -] Benzonatate [Tessalon Perle -] 200 mg PO BID 05/04/16 Levalbuterol Tartrate [Xopenex Hfa] 15 gm IH DAILY PRN 05/04/16 Nortriptyline HCl [Pamelor -] 30 mg PO HS 05/04/16 Prednisone 5 mg PO BID 07/13/16 Salmeterol/Fluticasone [Advair 1 inh PO BID 07/13/16 100Mcg/50Mcg -] Atorvastatin Ca [Lipitor] 10 mg PO HS #30 tablet 07/16/16 Ferrous Sulfate [Feosol] 325 mg PO BIDWM #120 ud 07/16/16 Apixaban [Eliquis -] 2.5 mg PO BID #60 tablet 07/26/16 Methimazole [Tapazole -] 15 mg PO TID #90 tablet 07/26/16 Sotalol HCl [Betapace -] 80 mg PO BID #60 tablet 07/26/16 REVIEW OF SYSTEMS CONSTITUTIONAL: generalized weakness Absent: fever, chills, diaphoresis, , malaise, loss of appetite, weight change HEENT: Absent: rhinorrhea, nasal congestion, throat pain, throat swelling, difficulty swallowing, mouth swelling, ear pain, eye pain, visual changes CARDIOVASCULAR: Absent: chest pain, syncope, palpitations, irregular heart rate, lightheadedness , peripheral edema RESPIRATORY:shortness of breath Absent: cough, dyspnea with exertion, orthopnea, wheezing, stridor, hemoptysis GASTROINTESTINAL: Absent: abdominal pain, abdominal distension, nausea, vomiting, diarrhea, constipation, melena, hematochezia GENITOURINARY: Absent: dysuria, frequency, urgency, hesitancy, hematuria, flank pain, genital pain MUSCULOSKELETAL: Absent: myalgia, arthralgia, joint swelling, back pain, neck pain SKIN: Absent: rash, itching, pallor HEMATOLOGIC/IMMUNOLOGIC: Absent: easy bleeding, easy bruising, lymphadenopathy, frequent infections ENDOCRINE: Absent: unexplained weight gain, unexplained weight loss, heat intolerance, cold intolerance NEUROLOGIC: Absent: headache, focal weakness or paresthesias, dizziness, unsteady gait, seizure, mental status changes, bladder or bowel incontinence PSYCHIATRIC: Absent: anxiety, depression, suicidal or homicidal ideation, hallucinations. PHYSICAL EXAMINATION Vital Signs - 24 hr 07/28/16 18:43 Temperature 98.3 F Pulse Rate 77 Respiratory 20 Rate Blood Pressure 158/83 O2 Sat by Pulse 100 Oximetry (%) GENERAL: Awake, alert, and fully oriented, in no acute distress. HEAD: Normal with no signs of trauma. EYES: Pupils equal, round and reactive to light, extraocular movements intact, sclera anicteric, conjunctiva clear. No lid lag. EARS, NOSE, THROAT: Ears normal, nares patent, oropharynx clear without exudates. Moist mucous membranes. NECK: Normal range of motion, supple without lymphadenopathy, JVD, or masses. LUNGS: Breath sounds equal, crackles and mild wheezing bilaterally. No accessory muscle use. HEART: Regular rate and rhythm, normal S1 and S2 without murmur, rub or gallop. ABDOMEN: Obese, Soft, nontender, not distended, normoactive bowel sounds, no guarding, no rebound, no masses. No hepatomegaly or splenomegaly. MUSCULOSKELETAL: Normal range of motion at all joints. No bony deformities or tenderness. No CVA tenderness. UPPER EXTREMITIES: 2+ pulses, warm, well-perfused. No cyanosis. No clubbing. Cap refill <2 seconds. No peripheral edema. LOWER EXTREMITIES: 2+ pulses, warm, well-perfused. No calf tenderness.Trace peripheral edema. NEUROLOGICAL: Cranial nerves II-XII intact. Normal speech. Gait not observed. PSYCHIATRIC: Cooperative. Good eye contact. Appropriate mood and affect. SKIN: Warm, dry, normal turgor, no rashes or lesions noted. Laboratory Results - last 24 hr 07/28/16 07/28/16 07/28/16 21:00 21:00 21:00 WBC 14.6 H D RBC 5.10 Hgb 10.1 L Hct 35.8 MCV 70.2 L MCHC 28.3 L RDW 27.1 H Plt Count 329 MPV 8.9 Neutrophils % 83.4 H Lymphocytes % 12.1 D Monocytes % 4.1 Eosinophils % 0.1 D Basophils % 0.3 D Sodium 143 Potassium 3.8 Chloride 98 Carbon Dioxide 43 H Anion Gap 2 L BUN 14 D Creatinine 0.5 L Creat Clearance w eGFR > 60 Random Glucose 198 H Calcium 8.3 L Total Bilirubin 0.3 D AST 19 D ALT 48 D Alkaline Phosphatase 75 Creatine Kinase 30 Troponin I 0.03 B-Natriuretic Peptide Cancelled 5504.18 H Total Protein 6.1 L Albumin 2.9 L Chest X ray: No significant changes when compared to the previous one on 07/25/16. ASSESSMENT/PLAN: The patient is an 85 year old female with a past medical history of CAD, paroxysmal A.Fib., NIDDM, COPD, HTN, HLD, GERD, gastric AVM malformation, Parkinsonism, anemia and left ventricular diastolic disfunction is complaining of SOB that started after she was discharged from the hospital 07/25/16. Since then her daughter states that her mother has been lethargic and slept for 12 hours a day had decreased appetite. For the past 2 days she has productive cough with whitish sputum. CHF exacerbation: -probably due to recently diagnosed A.Fib -continue lasix 40 mg IV Daily -monitor in telemetry -Cardiology consultation -strict i&O -daily weights -f/u BNP -low sodium diet COPD - cont. solumedrol 40mg IVPB BID daily - cont. advair, xopenex, daliresp, spiriva - duoneb PRN Q4H A-fib -cardiac monitoring -rate controlled Hyperthyroidism - cont. methimazole 15mg Q8H h/o CAD -no ASA due to bleeding risk NIDDM - on RISS Chronic anemia, microcytic - cont. iron supplementation HTN - cont. Sotalol HLD - cont. lipitor and lovaza GERD - cont. protonix and carafate Parkinson's disease - cont. mirapex Depression - cont. pamelor - cont. lexapro Herpetic neurolagia - cont. lyrica F/E/N: No/No/Diabetic Disposition: Place in observation in telemetry Visit type - Emergency Visit Emergency Visit: Yes ED Registration Date: 07/28/16 Care time: The patient presented to the Emergency Department on the above date and was hospitalized for further evaluation of their emergent condition. - New Patient This patient is new to me today: Yes Date on this admission: 07/31/16 - Critical Care Critical Care patient: No
[2016-07-29] MEDS ORDERED: ALBUTEROL SO4 6.7 GM HFA INHALER IH PRN ×2 (01:20→01:54)
[2016-07-29] MEDS ORDERED: METHIMAZOLE 5 MG TABLET (FP) PO SCH ×3 (02:00→06:00)
[2016-07-29] MEDS ORDERED: PREGABALIN 25 MG CAPSULE ONE ×2 (02:38→10:38)
[2016-07-29] MEDS ORDERED: PREGABALIN 50 MG CAPSULE ONE ×2 (02:38→10:38)
[2016-07-29] MEDS: SUCRALFATE 1 GM TABLET (FP) PO SCH ×3 (02:57→22:46)
[2016-07-29] MEDS: ESCITALOPRAM OXALATE 10 MG TABLET (FP) PO SCH ×3 (02:57→22:10)
[2016-07-29] MEDS: ATORVASTATIN CA 10 MG TABLET (FP) PO SCH ×2 (02:57→22:09)
[2016-07-29] MEDS: OMEGA-3 ACID ETHYL ESTERS (FATTY-ACIDS) 1 GM CAPSULE (FP) PO SCH ×3 (02:57→22:18)
[2016-07-29] MEDS: SOTALOL HCL 80 MG TABLET (FP) PO SCH ×3 (02:57→22:09)
[2016-07-29] MEDS: FERROUS SO4 325 MG TABLET (FP) PO SCH ×3 (02:57→18:28)
[2016-07-29] MEDS: predniSONE 20 MG TABLET (UD) PO SCH ×2 (02:57→11:58)
[2016-07-29] MEDS: APIXABAN 2.5 MG TABLET PO SCH ×3 (02:57→22:09)
[2016-07-29] MEDS: PRAMIPEXOLE DIHYDROCHLORIDE 0.5 MG TABLET PO SCH ×2 (02:58→22:09)
[2016-07-29] MEDS: NORTRIPTYLINE HCL 10 MG CAPSULE PO SCH ×2 (02:58→22:18)
[2016-07-29] MEDS: PREGABALIN 75 MG CAPSULE PO SCH ×3 (02:58→22:08)
[2016-07-29] MEDS: CALCIUM (OYSTER SHELL) 500 MG TABLET (FP) PO SCH ×3 (02:58→22:09)
[2016-07-29] MEDS: ACLIDINIUM BROMIDE 400 MCG/INH AERO.POWD IH SCH ×2 (02:59→10:50)
[2016-07-29] MEDS: ALBUTEROL SO4 0.083% IH SOL 2.5 MG/3 ML VIAL.NEB. NEB SCH ×2 (03:00→10:16)
[2016-07-29] MEDS: INSULIN SLIDING SCALE (NOVOLOG) 1 VIAL SQ SCH ×4 (06:38→22:13)
[2016-07-29] MEDS ORDERED: INSULIN REGULAR HUMAN 100 UNITS/ML *VIAL ONE (06:39)
[2016-07-29] MEDS ORDERED: metFORMIN HCL 500 MG TABLET (FP) PO SCH (07:00)
[2016-07-29 07:14] LABS: CHOLESTEROL 114 mg/dL (50-200); LDL CHOLESTEROL (ONLY SJRH) 29 mg/dL (5-100)
[2016-07-29] MEDS ORDERED: FERROUS SO4 325 MG TABLET (FP) PO SCH (08:00)
[2016-07-29] MEDS ORDERED: FERROUS SO4 325 MG TABLET (FP) ONE (08:20)
--- NOTE | 2016-07-29 09:26 | PN ---
<Ok Roberts - Last Filed: 07/29/16 10:09> Physical Exam: ATTENDING PHYSICIAN STATEMENT I saw and evaluated the patient. I reviewed the resident's note and discussed the case with the resident. I agree with the resident's findings and plan as documented. SUBJECTIVE: seen and evaluated at the bedside OBJECTIVE: drousy but arousable, rhonchi but no rales, no wheezing ASSESSMENT AND PLAN: 85 year old woman with HTN, DM, upper GI bleed due to gastric AVM, parkinson's disease, COPD admitted for hypercapnic respiratory failure Hypercapnia/COPD -pt presented with lethargy -no rales or wheezing on exam, just rhonchi -sent ABG this AM which showed PCO2 of 74 -start Bipap 10/5 50% -repeat ABG 1 hour after Bipap is started -cont Advair -cont spiriva -currently on solumedrol 40 BID afib -started on sotolol as per cardio attending recs from last admission -cont eliquis DM -on sliding scale insulin Critical Care Total Critical Care Time (in minutes): 75 Critical Care Statement: The care of this patient involved high complexity decision making to prevent further life threatening deterioration of the patient 's condition and/or to evalute & treat vital organ system(s) failure or risk of failure. <Channing Sevilla - Last Filed: 07/29/16 12:00> Physical Exam: SUBJECTIVE: Patient seen and examined at bedside. She c/o difficulty breathing and was somewhat drowsy. Per her daughter, patient was found to have fluid in her lungs but no fever, chills, n/v, chest pain, abd pain, bowel or urinary sx. OBJECTIVE: Vital Signs Period Temp Pulse Resp BP Sys/Pinedo Pulse Ox Last 24 Hr 98.5 F 74 19 108/70 97 GENERAL: The patient is sleepy, but fully oriented, in mild respiratory distress . NECK: no JVD LUNGS: Poor air entry, bilateral rales with minimal accessory muscle use. HEART: RRR, S1, S2 without murmur, rub or gallop. ABDOMEN: Soft, nontender, nondistended, normoactive bowel sounds, no guarding, no rebound, no hepatosplenomegaly, no masses. EXTREMITIES: no edema. Abnormal Lab Results 07/28/16 07/28/16 07/29/16 21:00 21:00 06:30 WBC 14.6 H D Hgb 10.1 L MCV 70.2 L MCHC 28.3 L RDW 27.1 H Neutrophils % 83.4 H Carbon Dioxide 43 H Anion Gap 2 L Creatinine 0.5 L Random Glucose 198 H Calcium 8.3 L B-Natriuretic Peptide 5504.18 H Total Protein 6.1 L Albumin 2.9 L HDL Cholesterol 76 H Active Medications Generic Name Dose Route Start Last Admin Trade Name Freq PRN Reason Stop Dose Admin Acetylcysteine 200 mg 07/29/16 12:00 Mucomyst 20 Oral / Inh Use Only* NEB QIDR MICHAEL Aclidinium Tillar 1 puff 07/29/16 02:00 07/29/16 02:59 Tudorza - IH Not Given BID MICHAEL Albuterol Sulfate 1 amp 07/29/16 02:00 07/29/16 03:00 Ventolin 0.083% Nebulizer Soln - NEB 1 amp BID MICHAEL Administration Albuterol Sulfate 1 puff 07/29/16 01:54 Ventolin Hfa Inhaler - IH DAILY PRN SHORTNESS OF BREATH Apixaban 2.5 mg 07/29/16 02:00 07/29/16 02:57 Eliquis - PO 2.5 mg BID MICHAEL Administration Aspirin 81 mg 07/29/16 10:00 Asa - PO DAILY MICHAEL Atorvastatin Calcium 10 mg 07/29/16 02:00 07/29/16 02:57 Lipitor - PO 10 mg HS MICHAEL Administration Calcium Carbonate 500 mg 07/29/16 02:00 07/29/16 02:58 Os-Moncho 500mg - PO 500 mg BID MICHAEL Administration Escitalopram Oxalate 10 mg 07/29/16 02:00 07/29/16 02:57 Lexapro - PO 10 mg BID MICHAEL Administration Ferrous Sulfate 325 mg 07/29/16 02:00 07/29/16 02:57 Feosol - PO 325 mg BIDWM MICHAEL Administration Insulin Aspart 1 vial 07/29/16 07:00 07/29/16 06:38 Novolog Vial Sliding Scale - SQ 6 unit ACHS MICHAEL Administration Protocol Methimazole 15 mg 07/29/16 10:00 Tapazole - PO Q8H MICHAEL Non-Formulary Medication 200 mg 07/29/16 10:00 Benzonatate PO BID MICHAEL Nortriptyline HCl 30 mg 07/29/16 02:00 07/29/16 02:58 Pamelor - PO 30 mg HS MICHAEL Administration Ijiwr-3-Zbhk Ethyl Esters 2 gm 07/29/16 02:00 07/29/16 02:57 Lovaza - PO 2 gm BID MICHAEL Administration Pantoprazole Sodium 40 mg 07/29/16 10:00 Protonix - PO DAILY MICHAEL Pramipexole Dihydrochloride 0.5 mg 07/29/16 02:00 07/29/16 02:58 Mirapex - PO 0.5 mg HS MICHAEL Administration Prednisone 40 mg 07/29/16 02:00 07/29/16 02:57 Deltasone - PO 40 mg DAILY MICHAEL Administration Pregabalin 75 mg 07/29/16 02:00 07/29/16 02:58 Lyrica - PO 75 mg BID MICHAEL Administration Roflumilast 500 mcg 07/29/16 10:00 Daliresp - PO DAILY MICHAEL Fluticasone/Salmeterol 1 puff 07/29/16 10:00 Advair 100mcg/50mcg - IH BID MICHAEL Sotalol HCl 80 mg 07/29/16 02:00 07/29/16 02:57 Betapace - PO 80 mg BID MICHAEL Administration Sucralfate 1 gm 07/29/16 02:00 07/29/16 02:57 Carafate - PO 1 gm BID MICHAEL Administration Imaging CXR: no sign of infiltrate/fluid overload, visually better looking compared to prior ASSESSMENT/PLAN: 86 yo F admitted to med-surg for dyspnea. Dyspnea 2/2 COPD exacerbation vs. CHF exacerbation - does not appear fluid overloaded clinically * d/c lasix - stat ABG - mucomyst 200mg NEB - cont. PO predisone 40mg daily - duoneb PRN Q4H - cont. advair, xopenex, daliresp, spiriva A-fib with RVR, new onset 2/2 subclinical hyperthyroidism - rate and rhythm controlled - cont sotalol 80mg PO BID - on eliquis 2.5mg BID Hyperthyroidism - subclinical - cont. methimazole 15mg Q8H - f/u with endocrine as outpatient for thyroid nodules NIDDM - on SSI and metformin Chronic anemia, microcytic - cont. feosol HTN - cont. sotalol HLD - cont. lipitor and lovaza GERD - cont. protonix and carafate Parkinson's disease - cont. mirapex Depression - cont. pamelor - cont. lexapro herpetic neurolagia - cont. lyrica FEN - IVF not indicated - correct Ca2+ normal - diabetic diet Prophylaxis - DVT: on eliquis - GI: on protonix (home med) - deconditioning: early ambulation with fall precaution Dispo: d/c planning for tomorrow if breathing improves. Visit type - Emergency Visit Emergency Visit: Yes ED Registration Date: 07/28/16 Care time: The patient presented to the Emergency Department on the above date and was hospitalized for further evaluation of their emergent condition. - New Patient This patient is new to me today: Yes Date on this admission: 07/29/16 - Critical Care Critical Care patient: No - Discharge Referral Referred to [facility] Med P.C.: No
[2016-07-29 09:44] LABS: ALLENS TEST POSITIVE; ART PUNCT SITE RIGHT RADIAL; ARTERIAL BLD GAS O2 SATURATION 91.3 % (90-98.9); ARTERIAL BLOOD GAS BASE EXCESS 18.3 meq/l (-2-2); ARTERIAL BLOOD GAS HCO3 45.9 meq/L (22-26); ARTERIAL BLOOD GAS PO2 61.1 mmHg (68-100); ARTERIAL BLOOD GAS pH 7.42 (7.35-7.45); LPM/O2% 1L; PT. ON O2? YES; TYPE OF O2 NASAL
[2016-07-29] MEDS ORDERED: FUROSEMIDE 40 MG/4 ML INJECTABLE VIAL IVPB SCH (10:00)
[2016-07-29] MEDS ORDERED: ASPIRIN 81 MG CHEWABLE TABLETS PO SCH (10:00)
[2016-07-29] MEDS ORDERED: ALBUTEROL SO4 0.083% IH SOL 2.5 MG/3 ML VIAL.NEB. NEB SCH (10:00)
[2016-07-29] MEDS ORDERED: SUCRALFATE 1 GM TABLET (FP) PO SCH (10:00)
[2016-07-29] MEDS ORDERED: predniSONE 5 MG TABLET (UD) PO SCH (10:00)
[2016-07-29] MEDS ORDERED: PREGABALIN 75 MG CAPSULE PO SCH (10:00)
[2016-07-29] MEDS ORDERED: ACLIDINIUM BROMIDE 400 MCG/INH AERO.POWD IH SCH (10:00)
[2016-07-29] MEDS ORDERED: CALCIUM (OYSTER SHELL) 500 MG TABLET (FP) PO SCH (10:00)
[2016-07-29] MEDS ORDERED: APIXABAN 2.5 MG TABLET PO SCH (10:00)
[2016-07-29] MEDS ORDERED: ESCITALOPRAM OXALATE 10 MG TABLET (FP) PO SCH (10:00)
[2016-07-29] MEDS ORDERED: FLUTICASONE/SALMETEROL 100 MCG/50 MCG DISKUS IH SCH (10:00)
[2016-07-29] MEDS ORDERED: OMEGA-3 ACID ETHYL ESTERS (FATTY-ACIDS) 1 GM CAPSULE (FP) PO SCH (10:00)
[2016-07-29] MEDS ORDERED: SOTALOL HCL 80 MG TABLET (FP) PO SCH (10:00)
[2016-07-29] MEDS ORDERED: methylPREDNISolone NA SUCC 40 MG/1 ML VIAL ONE (10:15)
[2016-07-29] MEDS ORDERED: ALBUTEROL SO4 0.083% IH SOL 2.5 MG/3 ML VIAL.NEB. NEB ONE ×2 (10:15→12:38)
[2016-07-29] MEDS: methylPREDNISolone NA SUCC 40 MG/1 ML VIAL IVPB SCH ×4 (10:16→22:08)
--- NOTE | 2016-07-29 10:30 | EKG ---
Test Reason : Blood Pressure : / mmHG Vent. Rate : 076 BPM Atrial Rate : 076 BPM P-R Int : 122 ms QRS Dur : 080 ms QT Int : 366 ms P-R-T Axes : 005 -31 010 degrees QTc Int : 411 ms NORMAL SINUS RHYTHM LEFT AXIS DEVIATION NONSPECIFIC T WAVE ABNORMALITY ABNORMAL ECG WHEN COMPARED WITH ECG OF 25-JUL-2016 14:23, PREMATURE ATRIAL COMPLEXES ARE NO LONGER PRESENT Confirmed by ANSLEY BALL, JULIENNE ([id number]) on 07/29/2016 10:30:21 AM Referred By: Confirmed By:JULIENNE PANCHAL MD
[2016-07-29] MEDS: PANTOPRAZOLE 40 MG TABLET (FP) PO SCH (10:50)
[2016-07-29] MEDS: METHIMAZOLE 5 MG TABLET (FP) PO SCH ×2 (10:50→18:27)
[2016-07-29] MEDS: ROFLUMILAST 500 MCG TABLET PO SCH (10:50)
[2016-07-29] MEDS: ACETYLCYSTEINE 20% 200MG/ML 4 ML VIAL *FOR ORAL / INH USE ONLY NEB SCH ×2 (12:30→23:45)
[2016-07-29] MEDS ORDERED: INSULIN (NOVOLOG) ASPART 100 UNITS/ML 10ML VIAL ONE ×2 (13:26→22:12)
[2016-07-29 14:22] LABS: ALLENS TEST POSITIVE; ARTERIAL BLD GAS O2 SATURATION 96.6 % (90-98.9); ARTERIAL BLOOD GAS BASE EXCESS 16.2 meq/l (-2-2); ARTERIAL BLOOD GAS HCO3 44.9 meq/L (22-26); ARTERIAL BLOOD GAS pH 7.34 (7.35-7.45)
[2016-07-29 14:23] LABS: ART PUNCT SITE RIGHT RADIAL; LPM/O2% 50%; PT. ON O2? YES
--- NOTE | 2016-07-29 14:25 | PN ---
Progress Note (short form) - Note Progress Note: PULMONARY CONSULTATION DICTATED 07/29/16 IMP ACUTE ON CHRONIC HYPOXEMIC/HYPERCAPNEIC RESPIRATORY FAILURE ADVANCED COPD WITH ACUTE EXACERBATION CHF AFIB PARKINSONS GERD PLAN IV STEROIDS INHALED BRONCHODILATORS O2 ALT WITH BIPAP ANTIBIOTICS LASIX MONITOR ABGS F/U CHEST X-RAYS CARDIOLOGY EVALUATION DR ALEXANDRE Problem List - Problems (1) CHF (congestive heart failure) Code(s): I50.9 - HEART FAILURE, UNSPECIFIED (2) Acute exacerbation of chronic obstructive pulmonary disease Code(s): J44.1 - CHRONIC OBSTRUCTIVE PULMONARY DISEASE W (ACUTE) EXACERBATION (3) Diabetes Code(s): E11.9 - TYPE 2 DIABETES MELLITUS WITHOUT COMPLICATIONS Qualifiers: Diabetes mellitus type: type 2 Diabetes mellitus complication status: without complication Diabetes mellitus termite helper insulin use: without senior living use Qualified Code(s): E11.9 - Type 2 diabetes mellitus without complications (4) Diastolic dysfunction with chronic heart failure Code(s): I50.32 - CHRONIC DIASTOLIC (CONGESTIVE) HEART FAILURE (5) HTN (hypertension) Code(s): I10 - ESSENTIAL (PRIMARY) HYPERTENSION Qualifiers: Hypertension type: essential hypertension Qualified Code(s): I10 - Essential (primary) hypertension (6) Parkinson disease Code(s): G20 - PARKINSON'S DISEASE (7) Acute on chronic respiratory failure with hypoxia and hypercapnia Code(s): J96.21 - ACUTE AND CHRONIC RESPIRATORY FAILURE WITH HYPOXIA J96.22 - ACUTE AND CHRONIC RESPIRATORY FAILURE WITH HYPERCAPNIA
[2016-07-29 16:17] VITALS: BMI 34.8
[2016-07-29] MEDS ORDERED: PT OWN MED DRAWER 7, Y5N ONE ×2 (16:47→18:35)
[2016-07-29] MEDS: TIOTROPIUM BROMIDE 18 MCG/INH (DEVICE W/ 30 CAPSULES) IH SCH (16:54)
[2016-07-29 17:34] LABS: ALLENS TEST POSITIVE; ART PUNCT SITE LEFT RADIAL; ARTERIAL BLD GAS O2 SATURATION 98.3 % (90-98.9); ARTERIAL BLOOD GAS BASE EXCESS 17.5 meq/l (-2-2); ARTERIAL BLOOD GAS pH 7.36 (7.35-7.45); LPM/O2% 50%; PT. ON O2? YES
[2016-07-29 20:01] LABS: ARTERIAL BLD GAS O2 SATURATION 88.9 % (90-98.9); ARTERIAL BLOOD GAS BASE EXCESS 17.5 meq/l (-2-2); ARTERIAL BLOOD GAS PO2 58.7 mmHg (68-100); ARTERIAL BLOOD GAS pH 7.37 (7.35-7.45)
[2016-07-29 20:02] LABS: ALLENS TEST POSITIVE; ART PUNCT SITE RIGHT RADIAL; PT. ON O2? YES
[2016-07-29 20:03] LABS: ARTERIAL BLOOD GAS HCO3 45.7 meq/L (22-26); LPM/O2% 40%; TYPE OF O2 BIPAP; VENT RATE 12; VT/PRESS 14/5
--- NOTE | 2016-07-29 20:30 | HOSP ---
Subjective - Review of Symptoms Events since last encounter: patient in hypoxic hypercarbic respiratory failure, requiring BIPAP, no improvement of ABGx3 Subjective: Patient tachypneic 18-20 rate, lethargic but arousable to voice, on bipap. heavy breathing, no accessory muscle use. No cyanosos, not complaining of chest pain or h/a ABG high CO2 80's, high O2 112, prolonged expiratory phase. BIPAP 50%,12,15/5 HEENT: No: Head Aches Pulmonary: Yes: Dyspnea. No: Cough, Pleuritic Chest Pain, Other Cardiovascular: Yes: Light Headedness. No: Chest Pain, Palpitations Gastrointestinal: No: Nausea, Vomiting Neurological: Yes: Confusion Physical Examination Vital Signs: Vital Signs Temperature 97.3 F L 07/29/16 16:03 Pulse Rate 77 07/29/16 16:03 Respiratory Rate 20 07/29/16 16:03 Blood Pressure 133/76 07/29/16 16:03 O2 Sat by Pulse Oximetry (%) 98 07/29/16 17:40 Constitutional: Yes: Mild Distress, Thin Eyes: Yes: Conjunctiva Clear, EOM Intact, PERRL HENT: Yes: Atraumatic, Normocephalic Neck: Yes: Supple Cardiovascular: Yes: Regular Rate and Rhythm, S1, S2 Respiratory: Yes: On BiPap, Poor Air Entry, SOB, Wheezes, Other (prolonged expiratory phase) Edema: LUE: Trace, RUE: Trace Peripheral Pulses: Left Radial: 1+, Right Radial: 1+ Neurological: Yes: Lethargy Hospitalist Encounter Assessment: 85 yo F with PMH of HTN, DM, upper GI bleed due to gastric AVM, parkinson's disease, COPD Acute on chronic COPD exacerbation with hypoxic, hypecarbic respiratory failure -on bipap, abg not imporved x3 (respiratory acidosis: hypecarbia 80's, high pO2 ) on Bipap 50% 12 10/5 O2 sat 98% -lethargy due to hypercarbia -on Advair, spiriva, solumedrol 40 q6 -Bipap setting changed to 40% 12 14/5, repeat ABG same hypecarbia 80's, low pO2 -Change Bipap setting to 45% 12 14/5 -add abx per Pulmonology note and current recommendations (rocephin 1g once); january antoine prophylactic abx as shown to reduce hospital stay -abg AM or if change in mental status or Os sat afib -on sotolol and eliquis DM -on sliding scale Visit type - Emergency Visit Emergency Visit: No - New Patient This patient is new to me today: Yes Date on this admission: 07/29/16 - Critical Care Critical Care patient: No
[2016-07-29] MEDS ORDERED: PRAMIPEXOLE DIHYDROCHLORIDE 0.5 MG TABLET PO SCH (22:00)
[2016-07-29] MEDS ORDERED: NORTRIPTYLINE HCL 10 MG CAPSULE PO SCH (22:00)
[2016-07-29] MEDS ORDERED: ATORVASTATIN CA 10 MG TABLET (FP) PO SCH (22:00)
[2016-07-29] MEDS ORDERED: CEFTRIAXONE 50 ML ONE (22:12)
[2016-07-29] MEDS: CEFTRIAXONE 1 MG in DEXTROSE 5%-WATER - 50 ML IVPB ONE ×2 (22:14→22:17)
[2016-07-29] MEDS: ARFORMOTEROL TARTRATE 15 MCG/2 ML VIAL NEB SCH (23:45)
[2016-07-30] MEDS: ALBUTEROL SO4 0.083% IH SOL 2.5 MG/3 ML VIAL.NEB. NEB SCH ×4 (00:06→20:00)
[2016-07-30] MEDS: METHIMAZOLE 5 MG TABLET (FP) PO SCH ×3 (02:25→18:35)
[2016-07-30] MEDS: methylPREDNISolone NA SUCC 40 MG/1 ML VIAL IVPB SCH ×4 (02:25→21:35)
[2016-07-30] MEDS: INSULIN SLIDING SCALE (NOVOLOG) 1 VIAL SQ SCH ×4 (05:59→22:24)
[2016-07-30 06:51] LABS: MCH 20.7 pg (25.7-33.7); MCHC 29.6 g/dl (32.0-36.0); MEAN PLT VOLUME 8.7 fl (7.5-11.1); PLATELET COUNT 336 K/MM3 (134-434); RDW 27.8 % (11.6-15.6); WHITE BLOOD COUNT 17.3 K/mm3 (4.0-10.0)
[2016-07-30 07:00] LABS: CALCIUM 9.3 mg/dL (8.5-10.1); CREATININE 0.5 mg/dL (0.55-1.02)
[2016-07-30 07:19] LABS: ARTERIAL BLD GAS O2 SATURATION 95.5 % (90-98.9); ARTERIAL BLOOD GAS BASE EXCESS 16.7 meq/l (-2-2); ARTERIAL BLOOD GAS HCO3 43.6 meq/L (22-26); ARTERIAL BLOOD GAS PO2 76.8 mmHg (68-100); ARTERIAL BLOOD GAS pH 7.44 (7.35-7.45)
[2016-07-30 07:21] LABS: ALLENS TEST NEGATIVE; ART PUNCT SITE RIGHT RADIAL; LPM/O2% 45; MECH. VENT. BIPAP; PT. ON O2? YES; TYPE OF O2 BIPAP
[2016-07-30 07:22] LABS: VENT RATE 12; VT/PRESS IPAP 14/ EPAP 5
[2016-07-30 08:11] LABS: ANISOCYTOSIS 1+; HYPOCHROMIA 4+; POLYCHROMASIA 1+
[2016-07-30 08:12] LABS: MICROCYTOSIS 1+
[2016-07-30] MEDS ORDERED: PT OWN MED DRAWER 7, Y5N ONE ×5 (08:57→23:00)
[2016-07-30] MEDS: FERROUS SO4 325 MG TABLET (FP) PO SCH ×2 (09:06→18:37)
[2016-07-30] MEDS: TIOTROPIUM BROMIDE 18 MCG/INH (DEVICE W/ 30 CAPSULES) IH SCH (09:06)
[2016-07-30] MEDS: APIXABAN 2.5 MG TABLET PO SCH ×2 (09:07→22:19)
[2016-07-30] MEDS: CALCIUM (OYSTER SHELL) 500 MG TABLET (FP) PO SCH ×2 (09:07→22:18)
[2016-07-30] MEDS: PANTOPRAZOLE 40 MG TABLET (FP) PO SCH (09:07)
[2016-07-30] MEDS: ESCITALOPRAM OXALATE 10 MG TABLET (FP) PO SCH ×2 (09:07→22:19)
[2016-07-30] MEDS: SOTALOL HCL 80 MG TABLET (FP) PO SCH ×2 (09:07→22:19)
[2016-07-30] MEDS: PREGABALIN 75 MG CAPSULE PO SCH ×2 (09:07→22:19)
[2016-07-30] MEDS: OMEGA-3 ACID ETHYL ESTERS (FATTY-ACIDS) 1 GM CAPSULE (FP) PO SCH ×2 (09:08→22:19)
[2016-07-30] MEDS: SUCRALFATE 1 GM TABLET (FP) PO SCH ×2 (09:08→22:20)
[2016-07-30] MEDS: ROFLUMILAST 500 MCG TABLET PO SCH (09:14)
[2016-07-30] MEDS: ARFORMOTEROL TARTRATE 15 MCG/2 ML VIAL NEB SCH ×2 (09:15→22:00)
--- NOTE | 2016-07-30 09:16 | PN ---
Progress Note, Physician - Current Medication List Current Medications: Active Medications Acetylcysteine (Mucomyst 20 Oral / Inh Use Only*) 200 mg NEB QIDR [facility] Last Admin: 07/29/16 23:45 Dose: 200 mg Albuterol Sulfate (Ventolin Hfa Inhaler -) 1 puff IH DAILY PRN PRN Reason: SHORTNESS OF BREATH Albuterol Sulfate (Ventolin 0.083% Nebulizer Soln -) 1 amp NEB Q4H [facility] Last Admin: 07/30/16 00:06 Dose: Not Given Apixaban (Eliquis -) 2.5 mg PO BID [facility] Last Admin: 07/29/16 22:09 Dose: 2.5 mg Arformoterol Tartrate (Brovana (Restricted To Pulmonology/Resp) -) 1 amp NEB BID [facility] Last Admin: 07/29/16 23:45 Dose: 1 amp Atorvastatin Calcium (Lipitor -) 10 mg PO HS [facility] Last Admin: 07/29/16 22:09 Dose: 10 mg Calcium Carbonate (Os-Moncho 500mg -) 500 mg PO BID [facility] Last Admin: 07/29/16 22:09 Dose: 500 mg Escitalopram Oxalate (Lexapro -) 10 mg PO BID [facility] Last Admin: 07/29/16 22:10 Dose: 10 mg Ferrous Sulfate (Feosol -) 325 mg PO BIDWM [facility] Last Admin: 07/29/16 18:28 Dose: 325 mg Insulin Aspart (Novolog Vial Sliding Scale -) 1 vial SQ ACHS [facility] PRN Reason: Protocol Last Admin: 07/30/16 05:59 Dose: 2 unit Methimazole (Tapazole -) 15 mg PO Q8H [facility] Last Admin: 07/30/16 02:25 Dose: 15 mg Methylprednisolone Sodium Succinate (Solu-Medrol -) 40 mg IVPB Q6H-IV [facility] Last Admin: 07/30/16 02:25 Dose: 40 mg Non-Formulary Medication (Benzonatate) 200 mg PO BID [facility] Nortriptyline HCl (Pamelor -) 30 mg PO HS [facility] Last Admin: 07/29/16 22:18 Dose: 30 mg Mokou-8-Clre Ethyl Esters (Lovaza -) 2 gm PO BID [facility] Last Admin: 07/29/16 22:18 Dose: 2 gm Pantoprazole Sodium (Protonix -) 40 mg PO DAILY [facility] Last Admin: 07/29/16 10:50 Dose: 40 mg Pramipexole Dihydrochloride (Mirapex -) 0.5 mg PO HS [facility] Last Admin: 07/29/16 22:09 Dose: 0.5 mg Pregabalin (Lyrica -) 75 mg PO BID [facility] Last Admin: 07/29/16 22:08 Dose: 75 mg Roflumilast (Daliresp -) 500 mcg PO DAILY [facility] Last Admin: 07/29/16 10:50 Dose: 500 mcg Sotalol HCl (Betapace -) 80 mg PO BID [facility] Last Admin: 07/29/16 22:09 Dose: 80 mg Sucralfate (Carafate -) 1 gm PO BID [facility] Last Admin: 07/29/16 22:46 Dose: 1 gm Tiotropium [place] (Spiriva -) 1 puff IH DAILY [facility] Last Admin: 07/29/16 16:54 Dose: 1 inh - Objective Vital Signs: Vital Signs Temperature 97.1 F L 07/30/16 06:00 Pulse Rate 84 07/30/16 06:00 Respiratory Rate 20 07/30/16 06:00 Blood Pressure 148/86 07/30/16 06:00 O2 Sat by Pulse Oximetry (%) 97 07/30/16 06:23 Constitutional: Yes: Well Nourished, No Distress, Calm Eyes: Yes: WNL, Conjunctiva Clear HENT: Yes: WNL, Atraumatic, Normocephalic Neck: Yes: WNL, Supple, Trachea Midline Cardiovascular: Yes: WNL, Regular Rate and Rhythm Respiratory: Yes: Rhonchi (improved from yesterday) Gastrointestinal: Yes: WNL, Normal Bowel Sounds Musculoskeletal: Yes: WNL Extremities: Yes: WNL Edema: No Integumentary: Yes: WNL Neurological: Yes: WNL, Alert, Oriented ...Motor Strength: WNL Psychiatric: Yes: WNL Labs: CBC, BMP 07/30/16 05:50 07/30/16 05:50 Impression/Plan Impression/Plan: 85 year old woman with HTN, DM, upper GI bleed due to gastric AVM, parkinson's disease, COPD admitted for hypercapnic respiratory failure Hypercapnia/COPD -pt presented with lethargy -no rales or wheezing on exam, just rhonchi -initial ABG showed PCO2 of 74 -started Bipap -repeat ABG today shows improvement in pH, PCO2, and PO2 -cont Advair -cont spiriva -currently on solumedrol 60 QID afib -started on sotolol as per cardio attending recs from last admission -cont eliquis DM -on sliding scale insulin Visit type - Emergency Visit Emergency Visit: Yes ED Registration Date: 07/28/16 Care time: The patient presented to the Emergency Department on the above date and was hospitalized for further evaluation of their emergent condition. - New Patient This patient is new to me today: No - Critical Care Critical Care patient: No
--- NOTE | 2016-07-30 09:16 | PN ---
Progress Note (short form) - Note Progress Note: Chief Complaint: Events noted, notes reviewed, complains of persistent dyspnea, denies any chest pain, sinus rhythm is maintained History of Present Illness: Seen and examined on telemetry. Full consult dictated - Current Medication List Current Medications Acetylcysteine (Mucomyst 20 Oral / Inh Use Only*) 200 mg NEB QIDR [facility] Last Admin: 07/29/16 23:45 Dose: 200 mg Albuterol Sulfate (Ventolin Hfa Inhaler -) 1 puff IH DAILY PRN PRN Reason: SHORTNESS OF BREATH Albuterol Sulfate (Ventolin 0.083% Nebulizer Soln -) 1 amp NEB Q4H [facility] Last Admin: 07/30/16 00:06 Dose: Not Given Apixaban (Eliquis -) 2.5 mg PO BID [facility] Last Admin: 07/29/16 22:09 Dose: 2.5 mg Arformoterol Tartrate (Brovana (Restricted To Pulmonology/Resp) -) 1 amp NEB BID [facility] Last Admin: 07/29/16 23:45 Dose: 1 amp Atorvastatin Calcium (Lipitor -) 10 mg PO HS [facility] Last Admin: 07/29/16 22:09 Dose: 10 mg Calcium Carbonate (Os-Moncho 500mg -) 500 mg PO BID [facility] Last Admin: 07/29/16 22:09 Dose: 500 mg Escitalopram Oxalate (Lexapro -) 10 mg PO BID [facility] Last Admin: 07/29/16 22:10 Dose: 10 mg Ferrous Sulfate (Feosol -) 325 mg PO BIDWM [facility] Last Admin: 07/29/16 18:28 Dose: 325 mg Insulin Aspart (Novolog Vial Sliding Scale -) 1 vial SQ ACHS [facility] PRN Reason: Protocol Last Admin: 07/30/16 05:59 Dose: 2 unit Methimazole (Tapazole -) 15 mg PO Q8H [facility] Last Admin: 07/30/16 02:25 Dose: 15 mg Methylprednisolone Sodium Succinate (Solu-Medrol -) 40 mg IVPB Q6H-IV [facility] Last Admin: 07/30/16 02:25 Dose: 40 mg Non-Formulary Medication (Benzonatate) 200 mg PO BID [facility] Nortriptyline HCl (Pamelor -) 30 mg PO HS [facility] Last Admin: 07/29/16 22:18 Dose: 30 mg Qsvrz-[id number]-Ynvn Ethyl Esters (Lovaza -) 2 gm PO BID [facility] Last Admin: 07/29/16 22:18 Dose: 2 gm Pantoprazole Sodium (Protonix -) 40 mg PO DAILY [facility] Last Admin: 07/29/16 10:50 Dose: 40 mg Pramipexole Dihydrochloride (Mirapex -) 0.5 mg PO HS [facility] Last Admin: 07/29/16 22:09 Dose: 0.5 mg Pregabalin (Lyrica -) 75 mg PO BID [facility] Last Admin: 07/29/16 22:08 Dose: 75 mg Roflumilast (Daliresp -) 500 mcg PO DAILY [facility] Last Admin: 07/29/16 10:50 Dose: 500 mcg Sotalol HCl (Betapace -) 80 mg PO BID [facility] Last Admin: 07/29/16 22:09 Dose: 80 mg Sucralfate (Carafate -) 1 gm PO BID [facility] Last Admin: 07/29/16 22:46 Dose: 1 gm Tiotropium [place] (Spiriva -) 1 puff IH DAILY [facility] Last Admin: 07/29/16 16:54 Dose: 1 inh Review of Systems Constitutional: denies: chills, fever Cardiovascular: As noted above Respiratory: reports: cough and sputum production Gastrointestinal: denies: nausea, vomiting, diarrhea, constipation or abdominal pain Genitourinary: No symptoms reported Musculoskeletal: No symptoms reported - Objective Vital Signs: Last Vital Signs Temp Pulse Resp BP Pulse Ox 97.1 F L 84 20 148/86 97 07/30/16 06:00 07/30/16 06:00 07/30/16 06:00 07/30/16 06:00 07/30/16 06:23 Neck: Supple Negative JVD No Bruit Cardiovascular: S1 S2 Regular Rate and Rhythm Respiratory: Scattered Rhonchi Bilaterally Gastrointestinal: Soft Benign Normal Bowel Sounds Edema: No Labs: ABG Results ABG pH 7.44 (7.35-7.45) 07/30/16 06:00 ABG pCO2 at Pt Temp 65.9 mmHg (35-45) H* 07/30/16 06:00 ABG pO2 at Pt Temp 76.8 mmHg (68-100) D 07/30/16 06:00 ABG HCO3 43.6 meq/L (22-26) H* 07/30/16 06:00 ABG O2 Sat (Measured) 95.5 % (90-98.9) 07/30/16 06:00 ABG O2 Content 13.8 % vol (15-22) L 07/30/16 06:00 ABG Base Excess 16.7 meq/l (-2-2) H* 07/30/16 06:00 CBC, BMP 07/30/16 05:50 07/30/16 05:50 Hepatic Panel Total Bilirubin 0.3 mg/dL (0.2-1.0) D 07/28/16 21:00 AST 19 U/L (15-37) D 07/28/16 21:00 ALT 48 U/L (12-78) D 07/28/16 21:00 Alkaline Phosphatase 75 U/L (45-117) 07/28/16 21:00 Albumin 2.9 g/dl (3.4-5.0) L 07/28/16 21:00 Assessment/Plan ASSESSMENT: 1. Hypercapeniec respiratory failure related to COPD/emphysema exacerbation 2. 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 Paroxysmal atrial fibrillation currently in sinus rhythm [id number] score of 7 on NOAC's 4. HTN 5. NIDDM 6. Hyperlipidemia 7. Parkinson's disease 8. Hyperthyroidism 9. Anemia 10. History of gastritis - gastric AVM post cautery PLAN: 1. Continue Sotalol with close monitoring of QTc interval 2. Add ACEI or ARBS 3. Add Lasix 4. Continue Continue A/C with Eliquis 5. Continue Lovaza and Lipitor 6. Bronchodilators and steroids as per primary team 7. Continue Tapazole Bernie Sharif MD
--- NOTE | 2016-07-30 10:48 | CONS ---
DATE OF CONSULTATION: 07/30/2016 REQUESTING PHYSICIAN: The consultation was requested by the hospitalist. CHIEF COMPLAINT: Dyspnea, cardiovascular evaluation. HISTORY OF PRESENT ILLNESS: The patient is an 86-year-old female of descent, known to our service, with known history of coronary artery disease; nonobstructive coronary artery disease on prior coronary angiography; angina pectoris; diastolic left ventricular dysfunction, with chronic class I to II Braxton Heart Association classification left ventricular failure; recent hospitalization with paroxysmal atrial fibrillation, on anticoagulation therapy; hypertensive cardiovascular disease; diabetes mellitus; hypercholesterolemia; advanced chronic obstructive lung disease; interstitial lung disease; gastroesophageal reflux disease; and anemia. She was recently hospitalized for rapid atrial fibrillation and subsequently she was discharged home. She presented to [facility] with increasing dyspnea and cough nonproductive of sputum. The patient denied any orthopnea or paroxysmal nocturnal dyspnea. The patient reported intermittent bilateral lower extremity edema that worsens in the latter part of the day. In addition, the patient reported expiratory wheezing. The patient denied any chest discomfort. The patient denied any palpitations, dizziness, lightheadedness or syncope. The patient has been reporting fatigue and tiredness. 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 SOCIAL HISTORY: Nonsmoker. FAMILY HISTORY: No family history of premature coronary artery disease. ALLERGIES: None reported. MEDICATIONS: Medical therapy currently includes: 1. Acetylcysteine nebulizer. 2. Ventolin HFA. 3. Ventolin nebulizer. 4. Eliquis 2.5 mg twice a day. 5. Brovana 1 puff twice a day. 6. Lipitor 10 mg once a day. 7. Os-Moncho 500 mg twice a day. 8. Lexapro 10 mg twice a day. 9. Ferrous sulfate 325 mg twice a day. 10. Insulin coverage. 11. Methimazole 15 mg every 8 hours for hyperthyroidism. 12. Solu-Medrol 40 mg every 6 hours. 13. Pamelor 30 mg once a day. 14. Lovaza 2 capsules twice a day. 15. Protonix 40 mg once a day. 16. Mirapex 0.5 mg once a day. 17. Lyrica 75 mg twice a day. 18. Daliresp 500 mcg once a day. 19. Betapace 80 mg twice a day. 20. Carafate 1 g twice a day. 21. Spiriva 1 puff once daily. REVIEW OF SYSTEMS: Head and Neck: Denies headache, photophobia, blurring of vision. Respiratory: Reports cough and sputum production, and in addition intermittent wheezing. Cardiovascular: As noted above. Gastrointestinal: Denies nausea, vomiting, diarrhea, abdominal discomfort. Genitourinary: No symptoms reported. PHYSICAL EXAMINATION: Vital signs: Blood pressure is 148/86 mmHg. Pulse rate is 84 beats per minute. Head and Neck: Pupils equal and reactive to light and accommodation. Extraocular movements are intact. Anicteric sclerae. Negative JVD. No bruit appreciated. Chest: Bilateral scattered rhonchi. Cardiovascular: S1 and S2 regular. Grade 1/6 systolic ejection murmur. No clicks or gallops. Abdomen: Soft, benign. Normoactive bowel sounds. Extremities: Trace edema. Intact distal pulses. No calf tenderness. DIAGNOSTIC STUDIES: Electrocardiogram reveals sinus rhythm with nonspecific T-wave abnormality. Chest x-ray report was noted. ABG revealed pH 7.44, pCO2 of 65.9, pO2 of 76.8, saturation 95.5%. White cell count 17.3, hemoglobin 10.1, platelet count 336. Sodium 142, potassium 3.7, BUN 23, creatinine 0.5, glucose 166. AST and ALT were noted. ASSESSMENT: 1. Hypercapnic respiratory failure related to chronic obstructive pulmonary disease/emphysema exacerbation. 2. Diastolic left ventricular dysfunction with class I to II Braxton Heart Association classification left ventricular failure, compensated. 3. Coronary artery disease, nonobstructive coronary artery disease, angina pectoris. 4. Paroxysmal atrial fibrillation, currently in sinus rhythm, CHADS-VASc score of 7, on Eliquis therapy. 5. Hypertension. 6. Noninsulin-dependent diabetes mellitus. 7. Hypercholesterolemia. 8. Parkinson disease. 9. Hyperthyroidism. 10. Anemia. 11. History of gastric arteriovenous malformations, status post intervention. RECOMMENDATIONS: 1. Continuation of sotalol, with close monitoring of QTc interval. 2. Addition of SALVATORE inhibitors or angiotensin receptor blockers. 3. Addition of Lasix. 4. Continuation of anticoagulation therapy with Eliquis. 5. Continuation of Lovaza and Lipitor therapies. 6. Bronchodilators and steroids as per the primary team. 7. Continuation of Tapazole for management of the above noted hyperthyroidism. Thank you for the kind referral. QUE HERRERA M.D. [id number]
[2016-07-30] MEDS: ACETYLCYSTEINE 20% 200MG/ML 4 ML VIAL *FOR ORAL / INH USE ONLY NEB SCH ×2 (11:25→20:16)
--- NOTE | 2016-07-30 11:25 | EKG ---
Test Reason : Blood Pressure : / mmHG Vent. Rate : 087 BPM Atrial Rate : 087 BPM P-R Int : 112 ms QRS Dur : 074 ms QT Int : 388 ms P-R-T Axes : 049 -10 -07 degrees QTc Int : 466 ms NORMAL SINUS RHYTHM ABNORMAL ECG WHEN COMPARED WITH ECG OF 28-JUL-2016 19:42, ST NOW DEPRESSED IN ANTERIOR LEADS Confirmed by JULIENNE PANCHAL MD ([id number]) on 07/30/2016 11:25:09 AM Referred By: QUE HERRERA Confirmed By:JULIENNE PANCHAL MD
[2016-07-30] MEDS: FUROSEMIDE 20 MG TABLET (FP) PO SCH (12:08)
[2016-07-30] MEDS: VALSARTAN 80 MG TABLET (UD) PO SCH (12:08)
--- NOTE | 2016-07-30 12:24 | PN ---
Progress Note, Physician History of Present Illness: pulmonary alert,on bipap,less dyspneic - Current Medication List Current Medications: Active Medications Acetylcysteine (Mucomyst 20 Oral / Inh Use Only*) 200 mg NEB QIDR [facility] Last Admin: 07/29/16 23:45 Dose: 200 mg Albuterol Sulfate (Ventolin Hfa Inhaler -) 1 puff IH DAILY PRN PRN Reason: SHORTNESS OF BREATH Albuterol Sulfate (Ventolin 0.083% Nebulizer Soln -) 1 amp NEB Q4H [facility] Last Admin: 07/30/16 00:06 Dose: Not Given Apixaban (Eliquis -) 2.5 mg PO BID [facility] Last Admin: 07/30/16 09:07 Dose: 2.5 mg Arformoterol Tartrate (Brovana (Restricted To Pulmonology/Resp) -) 1 amp NEB BID [facility] Last Admin: 07/29/16 23:45 Dose: 1 amp Atorvastatin Calcium (Lipitor -) 10 mg PO HS [facility] Last Admin: 07/29/16 22:09 Dose: 10 mg Calcium Carbonate (Os-Moncho 500mg -) 500 mg PO BID [facility] Last Admin: 07/30/16 09:07 Dose: 500 mg Escitalopram Oxalate (Lexapro -) 10 mg PO BID [facility] Last Admin: 07/30/16 09:07 Dose: 10 mg Ferrous Sulfate (Feosol -) 325 mg PO BIDWM [facility] Last Admin: 07/30/16 09:06 Dose: 325 mg Furosemide (Lasix -) 20 mg PO DAILY [facility] Last Admin: 07/30/16 12:08 Dose: 20 mg Insulin Aspart (Novolog Vial Sliding Scale -) 1 vial SQ ACHS [facility] PRN Reason: Protocol Last Admin: 07/30/16 12:08 Dose: 4 unit Methimazole (Tapazole -) 15 mg PO Q8H [facility] Last Admin: 07/30/16 09:09 Dose: 15 mg Methylprednisolone Sodium Succinate (Solu-Medrol -) 40 mg IVPB Q6H-IV [facility] Last Admin: 07/30/16 09:04 Dose: 40 mg Non-Formulary Medication (Benzonatate) 200 mg PO BID [facility] Nortriptyline HCl (Pamelor -) 30 mg PO HS [facility] Last Admin: 07/29/16 22:18 Dose: 30 mg [id number] Ethyl Esters (Lovaza -) 2 gm PO BID [facility] Last Admin: 07/30/16 09:08 Dose: 2 gm Pantoprazole Sodium (Protonix -) 40 mg PO DAILY [facility] Last Admin: 07/30/16 09:07 Dose: 40 mg Pramipexole Dihydrochloride (Mirapex -) 0.5 mg PO HS [facility] Last Admin: 07/29/16 22:09 Dose: 0.5 mg Pregabalin (Lyrica -) 75 mg PO BID [facility] Last Admin: 07/30/16 09:07 Dose: 75 mg Roflumilast (Daliresp -) 500 mcg PO DAILY [facility] Last Admin: 07/30/16 09:14 Dose: 500 mcg Sotalol HCl (Betapace -) 80 mg PO BID [facility] Last Admin: 07/30/16 09:07 Dose: 80 mg Sucralfate (Carafate -) 1 gm PO BID [facility] Last Admin: 07/30/16 09:08 Dose: 1 gm Tiotropium [place] (Spiriva -) 1 puff IH DAILY [facility] Last Admin: 07/30/16 09:06 Dose: Not Given Valsartan (Diovan -) 80 mg PO DAILY [facility] Last Admin: 07/30/16 12:08 Dose: 80 mg - Objective Vital Signs: Vital Signs Temperature 97.1 F L 07/30/16 06:00 Pulse Rate 110 H 07/30/16 09:30 Respiratory Rate 22 07/30/16 09:00 Blood Pressure 127/82 07/30/16 09:00 O2 Sat by Pulse Oximetry (%) 94 L 07/30/16 09:30 Constitutional: Yes: Well Nourished, Calm Eyes: Yes: WNL HENT: Yes: WNL Neck: Yes: WNL Cardiovascular: Yes: Pulse Irregular, S1, S2 Respiratory: Yes: Wheezes Gastrointestinal: Yes: Normal Bowel Sounds, Soft Extremities: Yes: WNL Edema: Yes Labs: CBC, BMP 07/30/16 05:50 07/30/16 05:50 Laboratory Tests 07/30/16 06:00 ABG pH 7.44 ABG pCO2 at Pt Temp 65.9 H* ABG pO2 at Pt Temp 76.8 D ABG HCO3 43.6 H* ABG O2 Sat (Measured) 95.5 O2 Delivery Device Bipap Oxygen Flow Rate 45 Vent Rate 12 Mechanical Rate Bipap Pressure Support Vent Ipap 14/ epap 5 Problem List - Problems (1) CHF (congestive heart failure) Code(s): I50.9 - HEART FAILURE, UNSPECIFIED (2) Acute exacerbation of chronic obstructive pulmonary disease Code(s): J44.1 - CHRONIC OBSTRUCTIVE PULMONARY DISEASE W (ACUTE) EXACERBATION (3) Diabetes Code(s): E11.9 - TYPE 2 DIABETES MELLITUS WITHOUT COMPLICATIONS Qualifiers: Diabetes mellitus type: type 2 Diabetes mellitus complication status: without complication Diabetes mellitus shelter insulin use: without shelter use Qualified Code(s): E11.9 - Type 2 diabetes mellitus without complications (4) Diastolic dysfunction with chronic heart failure Code(s): I50.32 - CHRONIC DIASTOLIC (CONGESTIVE) HEART FAILURE (5) HTN (hypertension) Code(s): I10 - ESSENTIAL (PRIMARY) HYPERTENSION Qualifiers: Hypertension type: essential hypertension Qualified Code(s): I10 - Essential (primary) hypertension (6) Parkinson disease Code(s): G20 - PARKINSON'S DISEASE (7) Acute on chronic respiratory failure with hypoxia and hypercapnia Code(s): J96.21 - ACUTE AND CHRONIC RESPIRATORY FAILURE WITH HYPOXIA J96.22 - ACUTE AND CHRONIC RESPIRATORY FAILURE WITH HYPERCAPNIA Assessment/Plan IMP ACUTE ON CHRONIC HYPOXEMIC/HYPERCAPNEIC RESPIRATORY FAILURE ADVANCED COPD WITH ACUTE EXACERBATION CHF AFIB PARKINSONS GERD PLAN IV STEROIDS same dose INHALED BRONCHODILATORS O2 ALT WITH BIPAP ANTIBIOTICS LASIX MONITOR ABGS F/U CHEST X-RAYS DR ALEXANDRE Problem List - Problems (1) CHF (congestive heart failure) Code(s): I50.9 - HEART FAILURE, UNSPECIFIED (2) Acute exacerbation of chronic obstructive pulmonary disease Code(s): J44.1 - CHRONIC OBSTRUCTIVE PULMONARY DISEASE W (ACUTE) EXACERBATION (3) Diabetes Code(s): E11.9 - TYPE 2 DIABETES MELLITUS WITHOUT COMPLICATIONS Qualifiers: Diabetes mellitus type: type 2 Diabetes mellitus complication status: without complication Diabetes mellitus terminal computer operator insulin use: without terminal computer operator use Qualified Code(s): E11.9 - Type 2 diabetes mellitus without complications (4) Diastolic dysfunction with chronic heart failure Code(s): I50.32 - CHRONIC DIASTOLIC (CONGESTIVE) HEART FAILURE (5) HTN (hypertension) Code(s): I10 - ESSENTIAL (PRIMARY) HYPERTENSION Qualifiers: Hypertension type: essential hypertension Qualified Code(s): I10 - Essential (primary) hypertension (6) Parkinson disease Code(s): G20 - PARKINSON'S DISEASE (7) Acute on chronic respiratory failure with hypoxia and hypercapnia Code(s): J96.21 - ACUTE AND CHRONIC RESPIRATORY FAILURE WITH HYPOXIA J96.22 - ACUTE AND CHRONIC RESPIRATORY FAILURE WITH HYPERCAPNIA
[2016-07-30 16:40] LABS: ARTERIAL BLD GAS O2 SATURATION 94.2 % (90-98.9); ARTERIAL BLOOD GAS HCO3 44.7 meq/L (22-26); ARTERIAL BLOOD GAS PO2 75.3 mmHg (68-100)
[2016-07-30 16:42] LABS: ALLENS TEST POSITIVE; ART PUNCT SITE LEFT RADIAL; PT. ON O2? YES
[2016-07-30 16:43] LABS: LPM/O2% 4L; TYPE OF O2 NASAL
[2016-07-30] MEDS: ATORVASTATIN CA 10 MG TABLET (FP) PO SCH (22:19)
[2016-07-30] MEDS: PRAMIPEXOLE DIHYDROCHLORIDE 0.5 MG TABLET PO SCH (22:19)
[2016-07-30] MEDS: NORTRIPTYLINE HCL 10 MG CAPSULE PO SCH (22:22)
[2016-07-31] MEDS: ALBUTEROL SO4 0.083% IH SOL 2.5 MG/3 ML VIAL.NEB. NEB SCH ×5 (02:00→17:47)
[2016-07-31] MEDS: methylPREDNISolone NA SUCC 40 MG/1 ML VIAL IVPB SCH ×3 (02:21→17:28)
[2016-07-31] MEDS: METHIMAZOLE 5 MG TABLET (FP) PO SCH ×3 (02:22→17:29)
[2016-07-31] MEDS: INSULIN SLIDING SCALE (NOVOLOG) 1 VIAL SQ SCH ×4 (06:04→21:28)
[2016-07-31 06:53] LABS: MCHC 28.6 g/dl (32.0-36.0); MEAN CELL VOLUME 69.7 fl (80-96); MEAN PLT VOLUME 8.9 fl (7.5-11.1); PLATELET COUNT 356 K/MM3 (134-434); RDW 27.3 % (11.6-15.6); WHITE BLOOD COUNT 19.8 K/mm3 (4.0-10.0)
[2016-07-31 06:58] LABS: MCH 19.9 pg (25.7-33.7)
[2016-07-31 07:03] LABS: CALCIUM 9.3 mg/dL (8.5-10.1); CREATININE 0.6 mg/dL (0.55-1.02)
[2016-07-31] MEDS ORDERED: PT OWN MED DRAWER 7, Y5N ONE ×6 (08:47→21:49)
[2016-07-31] MEDS: SOTALOL HCL 80 MG TABLET (FP) PO SCH ×2 (09:09→21:28)
[2016-07-31] MEDS: FUROSEMIDE 20 MG TABLET (FP) PO SCH (09:09)
[2016-07-31] MEDS: VALSARTAN 80 MG TABLET (UD) PO SCH (09:09)
[2016-07-31] MEDS: CALCIUM (OYSTER SHELL) 500 MG TABLET (FP) PO SCH ×2 (09:09→21:27)
[2016-07-31] MEDS: APIXABAN 2.5 MG TABLET PO SCH ×2 (09:09→21:27)
[2016-07-31] MEDS: PREGABALIN 75 MG CAPSULE PO SCH ×2 (09:10→21:28)
[2016-07-31] MEDS: ESCITALOPRAM OXALATE 10 MG TABLET (FP) PO SCH ×2 (09:10→21:27)
[2016-07-31] MEDS: FERROUS SO4 325 MG TABLET (FP) PO SCH ×2 (09:10→17:28)
[2016-07-31] MEDS: PANTOPRAZOLE 40 MG TABLET (FP) PO SCH (09:10)
[2016-07-31] MEDS: TIOTROPIUM BROMIDE 18 MCG/INH (DEVICE W/ 30 CAPSULES) IH SCH (09:14)
--- NOTE | 2016-07-31 09:45 | CONS ---
PULMONARY CONSULTATION DATE OF CONSULTATION: 07/29/2016 REFERRING PHYSICIAN: Ok Roberts MD The patient is an 86-year-old [place] female known to me from a previous office visit. PAST MEDICAL HISTORY: 1. Advanced COPD on home O2. 2. Atrial fibrillation. 3. Hypertension. 4. Pulmonary hypertension. 5. Peptic ulcer disease. 6. GERD. 7. Parkinson's. 8. Thyroid disorder. 9. Recently discharged from [facility]; was re-admitted on July 28 with increasing shortness of breath. 10. Anemia. The patient was recently discharged from [facility]. Her daughter notified me last night that the patient was having increasing shortness of breath and wheezing, for which I advised her to go back to the emergency room. There was no chest pain or palpitations. Apparently, she has been very sleepy for the past few days. There was no fever, weight loss or night sweats, no hemoptysis. In the emergency room, she was felt to be in [id number] hypercapnic hypoxemic respiratory failure. She was started on inhaled bronchodilators, steroids and a BiPAP. The patient has a history of tobacco use, approximately 2-3 packs for many years, quit approximately 20 years ago. There is no history of occupational exposure to chemicals or fumes. There is no history of DVT or PE in the past. Past medical history again includes advanced COPD on O2, GERD, Parkinson's, atrial fibrillation, anemia, peptic ulcer disease, hypertension. CURRENT MEDICATIONS 1. 2. Solu-Medrol 40 b.i.d. 3. Advair 4. Eliquis 5. Lyrica 6. Lexapro 7. Pamelor 8. Lovaza 9. Tudorza 10. Tapazole 11. Albuterol inhaler and solution 12. Betapace 13. Mirapex 14. NovoLog 15. Feosol 16. Mucomyst 17. Carafate 18. Protonix 19. Os-Moncho 20. Daliresp REVIEW OF SYSTEMS: Positive dyspnea, positive orthopnea, positive for chest congestion, positive cough. No chest pain. Positive wheezing. Positive lower extremity edema. PHYSICAL EXAMINATION: General: The patient is an elderly female, well-developed, well-nourished, drowsy but in no acute distress, on BiPAP. Vital signs: She is afebrile. Blood pressure is 124/71. Respiratory rate is 20. O2 saturation is 97%. HEENT exam: Normocephalic, atraumatic. Neck is supple. Heart: Heart regular. Normal S1, S2. Lungs: Bilateral rhonchi and wheezes. Abdomen: Abdomen is soft. Bowel sounds are positive. Extremities: Bilateral lower extremity edema. LABS: WBC is 14.6, hemoglobin 10.1, hematocrit 35.8. Platelet count of 329,000. INR is 1.04. Blood gases: pH of 7.42, PCO2 of 72, PO2 is 61. Bicarbonate of 45 and saturation of 91% on 1 liter. BUN 14, creatinine 0.5. RADIOGRAPHIC FINDINGS: Chest x-ray with mild pulmonary vascular congestion. IMPRESSION: 1. [id number] hypercapnic hypoxemic respiratory failure secondary to decompensated chronic obstructive pulmonary disease. 2. History of congestive heart failure. 3. Atrial fibrillation. 4. Gastroesophageal reflux disease. 5. Peptic ulcer disease. 6. Parkinson's. PLAN: 1. IV steroids. 2. Inhaled bronchodilators. 3. Supplemental O2. 4. BiPAP. 5. Follow up arterial blood gas. 6. Follow up chest x-ray. 7. Lasix. 8. Daily weights. ABRAHAM ALEXANDRE M.D. [id number]
[2016-07-31] MEDS: SUCRALFATE 1 GM TABLET (FP) PO SCH ×3 (10:00→21:32)
[2016-07-31] MEDS: ARFORMOTEROL TARTRATE 15 MCG/2 ML VIAL NEB SCH ×2 (10:15→23:59)
--- NOTE | 2016-07-31 10:16 | PN ---
Progress Note, Physician History of Present Illness: Dyspnea and sensorium improving. - Current Medication List Current Medications: Active Medications Acetylcysteine (Mucomyst 20 Oral / Inh Use Only*) 200 mg NEB QIDR [facility] Last Admin: 07/30/16 20:16 Dose: 200 mg Albuterol Sulfate (Ventolin Hfa Inhaler -) 1 puff IH DAILY PRN PRN Reason: SHORTNESS OF BREATH Albuterol Sulfate (Ventolin 0.083% Nebulizer Soln -) 1 amp NEB Q4H [facility] Last Admin: 07/31/16 06:15 Dose: 1 amp Apixaban (Eliquis -) 2.5 mg PO BID [facility] Last Admin: 07/31/16 09:09 Dose: 2.5 mg Arformoterol Tartrate (Brovana (Restricted To Pulmonology/Resp) -) 1 amp NEB BID [facility] Last Admin: 07/30/16 22:00 Dose: 1 amp Atorvastatin Calcium (Lipitor -) 10 mg PO HS [facility] Last Admin: 07/30/16 22:19 Dose: 10 mg Calcium Carbonate (Os-Moncho 500mg -) 500 mg PO BID [facility] Last Admin: 07/31/16 09:09 Dose: 500 mg Escitalopram Oxalate (Lexapro -) 10 mg PO BID [facility] Last Admin: 07/31/16 09:10 Dose: 10 mg Ferrous Sulfate (Feosol -) 325 mg PO BIDWM [facility] Last Admin: 07/31/16 09:10 Dose: 325 mg Furosemide (Lasix -) 20 mg PO DAILY [facility] Last Admin: 07/31/16 09:09 Dose: 20 mg Insulin Aspart (Novolog Vial Sliding Scale -) 1 vial SQ ACHS [facility] PRN Reason: Protocol Last Admin: 07/31/16 06:04 Dose: 6 unit Methimazole (Tapazole -) 15 mg PO Q8H [facility] Last Admin: 07/31/16 09:10 Dose: 15 mg Methylprednisolone Sodium Succinate (Solu-Medrol -) 40 mg IVPB Q6H-IV [facility] Last Admin: 07/31/16 09:09 Dose: 40 mg Non-Formulary Medication (Benzonatate) 200 mg PO BID [facility] Nortriptyline HCl (Pamelor -) 30 mg PO HS [facility] Last Admin: 07/30/16 22:22 Dose: 30 mg [id number] Ethyl Esters (Lovaza -) 2 gm PO BID [facility] Last Admin: 07/30/16 22:19 Dose: 2 gm Pantoprazole Sodium (Protonix -) 40 mg PO DAILY [facility] Last Admin: 07/31/16 09:10 Dose: 40 mg Pramipexole Dihydrochloride (Mirapex -) 0.5 mg PO HS [facility] Last Admin: 07/30/16 22:19 Dose: 0.5 mg Pregabalin (Lyrica -) 75 mg PO BID [facility] Last Admin: 07/31/16 09:10 Dose: 75 mg Roflumilast (Daliresp -) 500 mcg PO DAILY [facility] Last Admin: 07/30/16 09:14 Dose: 500 mcg Sotalol HCl (Betapace -) 80 mg PO BID [facility] Last Admin: 07/31/16 09:09 Dose: 80 mg Sucralfate (Carafate -) 1 gm PO BID [facility] Last Admin: 07/30/16 22:20 Dose: 1 gm Tiotropium [place] (Spiriva -) 1 puff IH DAILY [facility] Last Admin: 07/31/16 09:14 Dose: 1 inh Valsartan (Diovan -) 80 mg PO DAILY [facility] Last Admin: 07/31/16 09:09 Dose: 80 mg - Objective Vital Signs: Vital Signs Temperature 98.1 F 07/31/16 06:00 Pulse Rate 92 H 07/31/16 06:00 Respiratory Rate 20 07/31/16 06:00 Blood Pressure 150/76 07/31/16 06:00 O2 Sat by Pulse Oximetry (%) 94 L 07/31/16 03:00 Constitutional: Yes: No Distress Neck: Yes: Supple Cardiovascular: Yes: Regular Rate and Rhythm Respiratory: Yes: Regular, Diminished, On Nasal O2 Gastrointestinal: Yes: Normal Bowel Sounds, Soft, Abdomen, Obese Edema: No Labs: CBC, BMP 07/31/16 06:05 07/31/16 06:05 - ....Imaging EKG: Report Reviewed (Tele: [facility]) Problem List - Problems (1) Acute on chronic respiratory failure with hypoxia and hypercapnia Code(s): J96.21 - ACUTE AND CHRONIC RESPIRATORY FAILURE WITH HYPOXIA J96.22 - ACUTE AND CHRONIC RESPIRATORY FAILURE WITH HYPERCAPNIA (2) Acute exacerbation of chronic obstructive pulmonary disease Code(s): J44.1 - CHRONIC OBSTRUCTIVE PULMONARY DISEASE W (ACUTE) EXACERBATION (3) Coronary artery disease Code(s): I25.10 - ATHSCL HEART DISEASE OF [place] CORONARY ARTERY W/O ANG PCTRS Qualifiers: Coronary Disease-Associated Artery/Lesion type: [place] artery [place] vs. transplanted heart: [place] heart Associated angina: without angina Qualified Code(s): I25.10 - Atherosclerotic heart disease of [place] coronary artery without angina pectoris (4) Diastolic dysfunction with chronic heart failure Code(s): I50.32 - CHRONIC DIASTOLIC (CONGESTIVE) HEART FAILURE (5) Gastric AV malformation Code(s): Q27.33 - ARTERIOVENOUS MALFORMATION OF DIGESTIVE SYSTEM VESSEL (6) HTN (hypertension) Code(s): I10 - ESSENTIAL (PRIMARY) HYPERTENSION Qualifiers: Hypertension type: essential hypertension Qualified Code(s): I10 - Essential (primary) hypertension (7) Hyperlipidemia Code(s): E78.5 - HYPERLIPIDEMIA, UNSPECIFIED Qualifiers: Hyperlipidemia type: mixed hyperlipidemia Qualified Code(s): E78.2 - Mixed hyperlipidemia (8) Hyperthyroidism Code(s): E05.90 - THYROTOXICOSIS, UNSP WITHOUT THYROTOXIC CRISIS OR STORM (9) Leukocytosis Code(s): D72.829 - ELEVATED WHITE BLOOD CELL COUNT, UNSPECIFIED Qualifiers: Leukocytosis type: other Qualified Code(s): D72.828 - Other elevated white blood cell count (10) Upper GI bleed Code(s): K92.2 - GASTROINTESTINAL HEMORRHAGE, UNSPECIFIED (11) Premature ventricular beat Code(s): I49.3 - VENTRICULAR PREMATURE DEPOLARIZATION (12) Paroxysmal atrial fibrillation Code(s): I48.0 - PAROXYSMAL ATRIAL FIBRILLATION (13) Diabetes Code(s): E11.9 - TYPE 2 DIABETES MELLITUS WITHOUT COMPLICATIONS Qualifiers: Diabetes mellitus type: type 2 Diabetes mellitus complication status: without complication Diabetes mellitus intermediate card tender insulin use: without fpc use Qualified Code(s): E11.9 - Type 2 diabetes mellitus without complications Assessment/Plan 1. Acute on chronic hypercapeniec respiratory failure related to COPD/emphysema exacerbation improving 2. 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 Paroxysmal atrial fibrillation currently in sinus rhythm [id number] score of 7 on NOAC's 4. HTN 5. NIDDM 6. Hyperlipidemia 7. Parkinson's disease 8. Hyperthyroidism 9. Anemia 10. History of gastritis - gastric AVM post cautery PLAN: 1. Continue Sotalol 80 bid with close monitoring of QTc interval 2. Continue Diovan 80 qd 3. Continue Lasix 20 qd, replete K 4. Continue Continue A/C with Eliquis 2.5 bid 5. Continue Lovaza 2 bid and Lipitor 10 qhs 6. Bronchodilators, Mucomyst, Daliresp, O2 with bipap as needed, complete abx course and IV steroid taper as per pulmonary team 7. Continue Tapazole
[2016-07-31] MEDS: ROFLUMILAST 500 MCG TABLET PO SCH (10:34)
[2016-07-31] MEDS: OMEGA-3 ACID ETHYL ESTERS (FATTY-ACIDS) 1 GM CAPSULE (FP) PO SCH ×2 (10:34→21:28)
[2016-07-31] MEDS ORDERED: POTASSIUM CHLORIDE TABS 20 MEQ TABLET.ER (FP) PO ONE (10:45)
--- NOTE | 2016-07-31 10:48 | PN ---
<Channing Sevilla - Last Filed: 07/31/16 13:26> Physical Exam: SUBJECTIVE: Patient seen and examined at bedside. No afib overnight per cardiac monitoring. Comfortably lying in the bed and reported better breathing. Denied fever, chills , chest pain, abd pain, n/v, bowel or urinary sx. OBJECTIVE: Vital Signs Period Temp Pulse Resp BP Sys/Pinedo Pulse Ox Last 24 Hr 97.8 F-99 F 81-112 20-20 123-151/65-82 94-94 GENERAL: The patient is awake, alert, oriented to time and person, on 3L NC. NECK: no JVD LUNGS: bilateral wheezing without accessory muscle use. HEART: RRR, S1, S2 without murmur, rub or gallop. ABDOMEN: Soft, nontender, nondistended, normoactive bowel sounds, no guarding, no rebound, no hepatosplenomegaly, no masses. EXTREMITIES: no edema. Abnormal Lab Results 07/30/16 07/31/16 07/31/16 15:00 06:05 06:05 WBC 19.8 H Hgb 10.1 L MCV 69.7 L MCHC 28.6 L RDW 27.3 H Neutrophils % 95.0 H Lymphocytes % 3.0 L D Monocytes % 2.0 L ABG pCO2 at Pt Temp 74.2 H* ABG HCO3 44.7 H* ABG O2 Content 13.6 L ABG Base Excess 17.0 H* Potassium 3.4 L Chloride 95 L Carbon Dioxide 49 H Anion Gap 0 L BUN 31 H D Random Glucose 281 H D Active Medications Generic Name Dose Route Start Last Admin Trade Name Freq PRN Reason Stop Dose Admin Acetylcysteine 200 mg 07/29/16 12:00 07/30/16 20:16 Mucomyst 20 Oral / Inh Use Only* NEB 200 mg QIDR MICHAEL Administration Albuterol Sulfate 1 puff 07/29/16 01:54 Ventolin Hfa Inhaler - IH DAILY PRN SHORTNESS OF BREATH Albuterol Sulfate 1 amp 07/29/16 21:15 07/31/16 06:15 Ventolin 0.083% Nebulizer Soln - NEB 1 amp Q4H MICHAEL Administration Apixaban 2.5 mg 07/29/16 02:00 07/31/16 09:09 Eliquis - PO 2.5 mg BID MICHAEL Administration Arformoterol Tartrate 1 amp 07/29/16 22:00 07/30/16 22:00 Brovana (Restricted To Pulmonology/Resp) - NEB 1 amp BID MICHAEL Administration Atorvastatin Calcium 10 mg 07/29/16 02:00 07/30/16 22:19 Lipitor - PO 10 mg HS MICHAEL Administration Calcium Carbonate 500 mg 07/29/16 02:00 07/31/16 09:09 Os-Moncho 500mg - PO 500 mg BID MICHAEL Administration Escitalopram Oxalate 10 mg 07/29/16 02:00 07/31/16 09:10 Lexapro - PO 10 mg BID MICHAEL Administration Ferrous Sulfate 325 mg 07/29/16 02:00 07/31/16 09:10 Feosol - PO 325 mg BIDWM MICHAEL Administration Furosemide 20 mg 07/30/16 10:00 07/31/16 09:09 Lasix - PO 20 mg DAILY MICHAEL Administration Insulin Aspart 1 vial 07/29/16 07:00 07/31/16 06:04 Novolog Vial Sliding Scale - SQ 6 unit ACHS MICHAEL Administration Protocol Methimazole 15 mg 07/29/16 10:00 07/31/16 09:10 Tapazole - PO 15 mg Q8H MICHAEL Administration Methylprednisolone Sodium Succinate 40 mg 07/29/16 15:00 07/31/16 09:09 Solu-Medrol - IVPB 40 mg Q6H-IV MICHAEL Administration Non-Formulary Medication 200 mg 07/29/16 10:00 Benzonatate PO BID MICHAEL Nortriptyline HCl 30 mg 07/29/16 02:00 07/30/16 22:22 Pamelor - PO 30 mg HS MICHAEL Administration [id number] Ethyl Esters 2 gm 07/29/16 02:00 07/31/16 10:34 Lovaza - PO 2 gm BID MICHAEL Administration Pantoprazole Sodium 40 mg 07/29/16 10:00 07/31/16 09:10 Protonix - PO 40 mg DAILY MICHAEL Administration Pramipexole Dihydrochloride 0.5 mg 07/29/16 02:00 07/30/16 22:19 Mirapex - PO 0.5 mg HS MICHAEL Administration Pregabalin 75 mg 07/29/16 02:00 07/31/16 09:10 Lyrica - PO 75 mg BID MICHAEL Administration Roflumilast 500 mcg 07/29/16 10:00 07/31/16 10:34 Daliresp - PO 500 mcg DAILY MICHAEL Administration Sotalol HCl 80 mg 07/29/16 02:00 07/31/16 09:09 Betapace - PO 80 mg BID MICHAEL Administration Sucralfate 1 gm 07/29/16 02:00 07/30/16 22:20 Carafate - PO 1 gm BID MICHAEL Administration Tiotropium [place] 1 puff 07/29/16 16:00 07/31/16 09:14 Spiriva - IH 1 inh DAILY MICHAEL Administration Valsartan 80 mg 07/30/16 10:00 07/31/16 09:09 Diovan - PO 80 mg DAILY MICHAEL Administration ABG Results ABG pH 7.40 (7.35-7.45) 07/30/16 15:00 ABG pCO2 at Pt Temp 74.2 mmHg (35-45) H* 07/30/16 15:00 ABG pO2 at Pt Temp 75.3 mmHg (68-100) 07/30/16 15:00 ABG HCO3 44.7 meq/L (22-26) H* 07/30/16 15:00 ABG O2 Sat (Measured) 94.2 % (90-98.9) 07/30/16 15:00 ABG O2 Content 13.6 % vol (15-22) L 07/30/16 15:00 ABG Base Excess 17.0 meq/l (-2-2) H* 07/30/16 15:00 ASSESSMENT/PLAN: 86 yo F admitted to med-surg for dyspnea. Dyspnea 2/2 COPD exacerbation - last ABG showed improving acid-base status - mucomyst 200mg NEB - taper solumedrol 40 IV Q6H to Q8H - duoneb PRN Q4H - cont. advair, xopenex, daliresp, spiriva - BiPAP PRN A-fib with RVR, new onset 2/2 subclinical hyperthyroidism - rate and rhythm controlled - cont sotalol 80mg PO BID - on eliquis 2.5mg BID Hyperthyroidism - subclinical - cont. methimazole 15mg Q8H - f/u with endocrine as outpatient for thyroid nodules CHF - on lasix PO 20mg daily NIDDM - on SSI and metformin Chronic anemia, microcytic - cont. feosol HTN - cont. sotalol HLD - cont. lipitor and lovaza GERD - cont. protonix and carafate Parkinson's disease - cont. mirapex Depression - cont. pamelor - cont. lexapro herpetic neurolagia - cont. lyrica FEN - IVF not indicated - correct Ca2+ normal - diabetic diet Prophylaxis - DVT: on eliquis - GI: on protonix (home med) - deconditioning: early ambulation with fall precaution Dispo: d/c planning for tomorrow if breathing improves. Visit type - Emergency Visit Emergency Visit: No - New Patient This patient is new to me today: No - Critical Care Critical Care patient: No - Discharge Referral Referred to [facility] Med P.C.: No <Ok Roberts - Last Filed: 07/31/16 14:57> Physical Exam: ATTENDING PHYSICIAN STATEMENT I saw and evaluated the patient. I reviewed the resident's note and discussed the case with the resident. I agree with the resident's findings and plan as documented. 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
[2016-07-31] MEDS ORDERED: INSULIN (NOVOLOG) ASPART 100 UNITS/ML 10ML VIAL ONE ×2 (11:07→21:27)
--- NOTE | 2016-07-31 12:33 | PN ---
Progress Note, Physician History of Present Illness: pulmonary alert,feeling better,less dyspneic,oob-chair - Current Medication List Current Medications: Active Medications Acetylcysteine (Mucomyst 20 Oral / Inh Use Only*) 200 mg NEB QIDR [facility] Last Admin: 07/30/16 20:16 Dose: 200 mg Albuterol Sulfate (Ventolin Hfa Inhaler -) 1 puff IH DAILY PRN PRN Reason: SHORTNESS OF BREATH Albuterol Sulfate (Ventolin 0.083% Nebulizer Soln -) 1 amp NEB Q4H [facility] Last Admin: 07/31/16 06:15 Dose: 1 amp Apixaban (Eliquis -) 2.5 mg PO BID [facility] Last Admin: 07/31/16 09:09 Dose: 2.5 mg Arformoterol Tartrate (Brovana (Restricted To Pulmonology/Resp) -) 1 amp NEB BID [facility] Last Admin: 07/30/16 22:00 Dose: 1 amp Atorvastatin Calcium (Lipitor -) 10 mg PO HS [facility] Last Admin: 07/30/16 22:19 Dose: 10 mg Calcium Carbonate (Os-Moncho 500mg -) 500 mg PO BID [facility] Last Admin: 07/31/16 09:09 Dose: 500 mg Escitalopram Oxalate (Lexapro -) 10 mg PO BID [facility] Last Admin: 07/31/16 09:10 Dose: 10 mg Ferrous Sulfate (Feosol -) 325 mg PO BIDWM [facility] Last Admin: 07/31/16 09:10 Dose: 325 mg Furosemide (Lasix -) 20 mg PO DAILY [facility] Last Admin: 07/31/16 09:09 Dose: 20 mg Insulin Aspart (Novolog Vial Sliding Scale -) 1 vial SQ ACHS [facility] PRN Reason: Protocol Last Admin: 07/31/16 12:04 Dose: 6 unit Methimazole (Tapazole -) 15 mg PO Q8H [facility] Last Admin: 07/31/16 09:10 Dose: 15 mg Methylprednisolone Sodium Succinate (Solu-Medrol -) 40 mg IVPB Q6H-IV [facility] Last Admin: 07/31/16 09:09 Dose: 40 mg Non-Formulary Medication (Benzonatate) 200 mg PO BID [facility] Nortriptyline HCl (Pamelor -) 30 mg PO HS [facility] Last Admin: 07/30/16 22:22 Dose: 30 mg [id number] Ethyl Esters (Lovaza -) 2 gm PO BID [facility] Last Admin: 07/31/16 10:34 Dose: 2 gm Pantoprazole Sodium (Protonix -) 40 mg PO DAILY [facility] Last Admin: 07/31/16 09:10 Dose: 40 mg Pramipexole Dihydrochloride (Mirapex -) 0.5 mg PO HS [facility] Last Admin: 07/30/16 22:19 Dose: 0.5 mg Pregabalin (Lyrica -) 75 mg PO BID [facility] Last Admin: 07/31/16 09:10 Dose: 75 mg Roflumilast (Daliresp -) 500 mcg PO DAILY [facility] Last Admin: 07/31/16 10:34 Dose: 500 mcg Sotalol HCl (Betapace -) 80 mg PO BID [facility] Last Admin: 07/31/16 09:09 Dose: 80 mg Sucralfate (Carafate -) 1 gm PO BID [facility] Last Admin: 07/31/16 12:00 Dose: 1 gm Tiotropium [place] (Spiriva -) 1 puff IH DAILY [facility] Last Admin: 07/31/16 09:14 Dose: 1 inh Valsartan (Diovan -) 80 mg PO DAILY [facility] Last Admin: 07/31/16 09:09 Dose: 80 mg - Objective Vital Signs: Vital Signs Temperature 98.1 F 07/31/16 10:00 Pulse Rate 97 H 07/31/16 10:00 Respiratory Rate 20 07/31/16 10:00 Blood Pressure 127/62 07/31/16 10:00 O2 Sat by Pulse Oximetry (%) 98 07/31/16 11:00 Constitutional: Yes: Well Nourished, Calm Eyes: Yes: WNL HENT: Yes: WNL Neck: Yes: WNL Cardiovascular: Yes: Pulse Irregular, S1, S2 Respiratory: Yes: Rales, Rhonchi (scattered edward rhonchi and crackles) Gastrointestinal: Yes: Normal Bowel Sounds, Soft Extremities: Yes: WNL Edema: Yes Labs: CBC, BMP 07/31/16 06:05 07/31/16 06:05 Laboratory Tests 07/30/16 15:00 ABG pH 7.40 ABG pCO2 at Pt Temp 74.2 H* ABG pO2 at Pt Temp 75.3 ABG HCO3 44.7 H* ABG O2 Sat (Measured) 94.2 Oxygen Flow Rate 4l Problem List - Problems (1) CHF (congestive heart failure) Code(s): I50.9 - HEART FAILURE, UNSPECIFIED (2) Acute exacerbation of chronic obstructive pulmonary disease Code(s): J44.1 - CHRONIC OBSTRUCTIVE PULMONARY DISEASE W (ACUTE) EXACERBATION (3) Diabetes Code(s): E11.9 - TYPE 2 DIABETES MELLITUS WITHOUT COMPLICATIONS Qualifiers: Diabetes mellitus type: type 2 Diabetes mellitus complication status: without complication Diabetes mellitus fpc insulin use: without manager terminal use Qualified Code(s): E11.9 - Type 2 diabetes mellitus without complications (4) Diastolic dysfunction with chronic heart failure Code(s): I50.32 - CHRONIC DIASTOLIC (CONGESTIVE) HEART FAILURE (5) HTN (hypertension) Code(s): I10 - ESSENTIAL (PRIMARY) HYPERTENSION Qualifiers: Hypertension type: essential hypertension Qualified Code(s): I10 - Essential (primary) hypertension (6) Parkinson disease Code(s): G20 - PARKINSON'S DISEASE (7) Acute on chronic respiratory failure with hypoxia and hypercapnia Code(s): J96.21 - ACUTE AND CHRONIC RESPIRATORY FAILURE WITH HYPOXIA J96.22 - ACUTE AND CHRONIC RESPIRATORY FAILURE WITH HYPERCAPNIA Assessment/Plan IMP ACUTE ON CHRONIC HYPOXEMIC/HYPERCAPNEIC RESPIRATORY FAILURE improving ADVANCED COPD WITH ACUTE EXACERBATION CHF AFIB PARKINSONS GERD PLAN STEROID taper INHALED BRONCHODILATORS O2 ALT WITH BIPAP ANTIBIOTICS LASIX MONITOR ABGS F/U CHEST X-RAY AM DR ALEXANDRE Problem List - Problems (1) CHF (congestive heart failure) Code(s): I50.9 - HEART FAILURE, UNSPECIFIED (2) Acute exacerbation of chronic obstructive pulmonary disease Code(s): J44.1 - CHRONIC OBSTRUCTIVE PULMONARY DISEASE W (ACUTE) EXACERBATION (3) Diabetes Code(s): E11.9 - TYPE 2 DIABETES MELLITUS WITHOUT COMPLICATIONS Qualifiers: Diabetes mellitus type: type 2 Diabetes mellitus complication status: without complication Diabetes mellitus manager terminal insulin use: without manager terminal use Qualified Code(s): E11.9 - Type 2 diabetes mellitus without complications (4) Diastolic dysfunction with chronic heart failure Code(s): I50.32 - CHRONIC DIASTOLIC (CONGESTIVE) HEART FAILURE (5) HTN (hypertension) Code(s): I10 - ESSENTIAL (PRIMARY) HYPERTENSION Qualifiers: Hypertension type: essential hypertension Qualified Code(s): I10 - Essential (primary) hypertension (6) Parkinson disease Code(s): G20 - PARKINSON'S DISEASE (7) Acute on chronic respiratory failure with hypoxia and hypercapnia Code(s): J96.21 - ACUTE AND CHRONIC RESPIRATORY FAILURE WITH HYPOXIA J96.22 - ACUTE AND CHRONIC RESPIRATORY FAILURE WITH HYPERCAPNIA
[2016-07-31] MEDS: ACETYLCYSTEINE 20% 200MG/ML 4 ML VIAL *FOR ORAL / INH USE ONLY NEB SCH ×2 (13:40→17:46)
--- NOTE | 2016-07-31 15:44 | CONSULT ---
Consult - text type - Consultation Consultation Note: The patient is an 86-year-old female, accompanied by family member with a significant past medical history of hypertension, atrial fibrillation, anemia, peptic ulcer disease, GERD, COPD, Parkinsons, and thyroid disorder who presents to the emergency department complaining of shortness of breath, and wheezing . The patient denies any associated fever, chills, or cough. The patients daughter reports that the patient presented to the emergency department on 07/18/16 and was admitted for atrial fibrillation, and discharged on 07/25/16. Allergies: NKDA Past surgical history: Left femur fracture surgery. Right elbow fracture surgery - Past Medical History Anemia: Yes Cardiac Disorders: Yes (ARRHYTHMIA) CVA: No COPD: Yes (PT USES O2 AT HOME) Diabetes: Yes GI Disorders: Yes (GERD/R/O GI BLD) HTN: Yes hyperthyroid - Surgical History Orthopedic Surgery: Yes (FX LEFT FEMUR WITH PINNING/RIGHT ELBOW FX ) - Immunization History Immunization Up to Date: Yes - Psycho/Social/Smoking Cessation Hx Smoking History: Former smoker - Past Medical History Allergies/Adverse Reactions: Allergies Allergy/AdvReac Type Severity Reaction Status Date / Time No Known Allergies Allergy Verified 07/28/16 18:41 Home Medications: Ambulatory Orders Tiotropium [place] [Spiriva] 1 inh PO BID 07/19/14 Roflumilast [Daliresp -] 500 mcg PO DAILY #30 tablet 07/21/14 Metformin HCl 500 mg PO DAILY 05/09/15 Pregabalin [Lyrica -] 75 mg PO BID 05/09/15 Albuterol 0.083% Nebulizer Lisa [Ventolin 0.083% Nebulizer Soln -] 1 neb NEB BID 12/01/15 Aspirin [ASA -] 81 mg PO DAILY 04/18/16 Calcium Carbonate [Calcium] 500 mg PO BID 04/18/16 Escitalopram Oxalate [Lexapro -] 10 mg PO BID 04/18/16 Pantoprazole Sodium [Protonix] 40 mg PO DAILY 04/18/16 Pramipexole Di-HCl [Mirapex] 0.5 mg PO HS 04/18/16 Sucralfate [Carafate] 1 gm PO BID 04/18/16 [place]-3 Acid Ethyl Esters [Lovaza -] 2 gm PO BID cap 04/21/16 Benzonatate [Tessalon Perle -] 200 mg PO BID 05/04/16 Levalbuterol Tartrate [Xopenex Hfa] 15 gm IH DAILY PRN 05/04/16 Nortriptyline HCl [Pamelor -] 30 mg PO HS 05/04/16 Prednisone 5 mg PO BID 07/13/16 Salmeterol/Fluticasone [Advair 100Mcg/50Mcg -] 1 inh PO BID 07/13/16 Atorvastatin Ca [Lipitor] 10 mg PO HS #30 tablet 07/16/16 Ferrous Sulfate [Feosol] 325 mg PO BIDWM #120 ud 07/16/16 Apixaban [Eliquis -] 2.5 mg PO BID #60 tablet 07/26/16 Methimazole [Tapazole -] 15 mg PO TID #90 tablet 07/26/16 Sotalol HCl [Betapace -] 80 mg PO BID #60 tablet 07/26/16 Current Medications Acetylcysteine (Mucomyst 20 Oral / Inh Use Only*) 200 mg NEB QIDR [facility] Last Admin: 07/31/16 13:40 Dose: 200 mg Albuterol Sulfate (Ventolin Hfa Inhaler -) 1 puff IH DAILY PRN PRN Reason: SHORTNESS OF BREATH Albuterol Sulfate (Ventolin 0.083% Nebulizer Soln -) 1 amp NEB Q4H [facility] Last Admin: 07/31/16 13:40 Dose: 1 amp Apixaban (Eliquis -) 2.5 mg PO BID [facility] Last Admin: 07/31/16 09:09 Dose: 2.5 mg Arformoterol Tartrate (Brovana (Restricted To Pulmonology/Resp) -) 1 amp NEB BID [facility] Last Admin: 07/31/16 10:15 Dose: Not Given Atorvastatin Calcium (Lipitor -) 10 mg PO HS [facility] Last Admin: 07/30/16 22:19 Dose: 10 mg Calcium Carbonate (Os-Moncho 500mg -) 500 mg PO BID [facility] Last Admin: 07/31/16 09:09 Dose: 500 mg Escitalopram Oxalate (Lexapro -) 10 mg PO BID [facility] Last Admin: 07/31/16 09:10 Dose: 10 mg Ferrous Sulfate (Feosol -) 325 mg PO BIDWM [facility] Last Admin: 07/31/16 09:10 Dose: 325 mg Furosemide (Lasix -) 20 mg PO DAILY [facility] Last Admin: 07/31/16 09:09 Dose: 20 mg Insulin Aspart (Novolog Vial Sliding Scale -) 1 vial SQ ACHS [facility] PRN Reason: Protocol Last Admin: 07/31/16 12:04 Dose: 6 unit Methimazole (Tapazole -) 15 mg PO Q8H [facility] Last Admin: 07/31/16 09:10 Dose: 15 mg Methylprednisolone Sodium Succinate (Solu-Medrol -) 40 mg IVPB Q8H-IV [facility] Non-Formulary Medication (Benzonatate) 200 mg PO BID [facility] Nortriptyline HCl (Pamelor -) 30 mg PO [facility] Last Admin: 07/30/16 22:22 Dose: 30 mg Ujehb-4-[id number] Ethyl Esters (Lovaza -) 2 gm PO BID [facility] Last Admin: 07/31/16 10:34 Dose: 2 gm Pantoprazole Sodium (Protonix -) 40 mg PO DAILY [facility] Last Admin: 07/31/16 09:10 Dose: 40 mg Pramipexole Dihydrochloride (Mirapex -) 0.5 mg PO [facility] Last Admin: 07/30/16 22:19 Dose: 0.5 mg Pregabalin (Lyrica -) 75 mg PO BID [facility] Last Admin: 07/31/16 09:10 Dose: 75 mg Roflumilast (Daliresp -) 500 mcg PO DAILY [facility] Last Admin: 07/31/16 10:34 Dose: 500 mcg Sotalol HCl (Betapace -) 80 mg PO BID [facility] Last Admin: 07/31/16 09:09 Dose: 80 mg Sucralfate (Carafate -) 1 gm PO BID [facility] Last Admin: 07/31/16 12:00 Dose: 1 gm Tiotropium [place] (Spiriva -) 1 puff IH DAILY [facility] Last Admin: 07/31/16 09:14 Dose: 1 inh Valsartan (Diovan -) 80 mg PO DAILY [facility] Last Admin: 07/31/16 09:09 Dose: 80 mg *Physical Exam - Vital Signs Last Vital Signs Temp Pulse Resp BP Pulse Ox 98.3 F 77 20 158/83 100 07/28/16 18:43 07/28/16 18:43 07/28/16 18:43 07/28/16 18:43 07/28/16 18:43 Cor: RSR, No murmurs, No gallops Lungs: Clear to P&A Abd: Soft, Normal bowel sounds, No organomegaly Ext:No significant edema Skin: No rashes, Integument intact Laboratory Results 07/28/16 07/28/16 21:00 21:00 Sodium 143 Potassium 3.8 Chloride 98 Carbon Dioxide 43 H Anion Gap 2 L BUN 14 D Creatinine 0.5 L Creat Clearance w eGFR > 60 Random Glucose 198 H Calcium 8.3 L Total Bilirubin 0.3 D AST 19 D ALT 48 D Alkaline Phosphatase 75 Creatine Kinase 30 Troponin I 0.03 B-Natriuretic Peptide 5504.18 H Cancelled Total Protein 6.1 L Albumin 2.9 L 07/28/16 21:00 RBC 5.10 MCV 70.2 L MCHC 28.3 L RDW 27.1 H MPV 8.9 Neutrophils % 83.4 H Lymphocytes % 12.1 D Monocytes % 4.1 Eosinophils % 0.1 D Basophils % 0.3 D - RADIOLOGY Radiograph Interpretation: 07/29/16 05:27 EXAM: CXR INTERPRETED BY: Dr. Colon REVIEWED BY: Dr. Sheth IMPRESSION: Since 07/25/2016, there remains moderate cardiomegaly with unfolding of the aortic arch. Bilateral increased interstitial markings are again seen with suggestion of mild pulmonary venous congestion. There is now mild-to- moderate elevation of the left hemidiaphragm. Minimal pleural effusion is seen in the posterior costophrenic angle, the site of which is not clear on this exam. Degenerative changes in the thoracic spine. EXAM: US/DUPLEX VASCUL US-2LEGS INTERPRETED BY: Dr. Colon REVIEWED BY: Dr. Sheth IMPRESSION: There is no evidence of deep venous thromboses in both lower extremities. A/P 86 y/o patient with multiple medical problems, HTN, DM, CAD, CHF, Afib h/o gibleed ? AVms recently had multiple admissions for CHF/COPD. HAs recently switched from ASA to eliquis for Afib with TERESSA score of [address] Grimes iron deficiency anemia--iron saturation 3% on feosol/protonix/sucralfate patient s/p EGD and cautery of gastric AVM by in 06/[address] Severino about prior GI w/u will follow
[2016-07-31] MEDS: PRAMIPEXOLE DIHYDROCHLORIDE 0.5 MG TABLET PO SCH (21:27)
[2016-07-31] MEDS: ATORVASTATIN CA 10 MG TABLET (FP) PO SCH (21:28)
[2016-07-31] MEDS: NORTRIPTYLINE HCL 10 MG CAPSULE PO SCH (21:28)
[2016-07-31] MEDS: BENZONATATE 200 MG PO SCH (21:48)
[2016-08-01] MEDS: ALBUTEROL SO4 0.083% IH SOL 2.5 MG/3 ML VIAL.NEB. NEB SCH ×3 (00:01→06:51)
[2016-08-01] MEDS ORDERED: PT OWN MED DRAWER 7, Y5N ONE ×2 (00:50→16:50)
[2016-08-01] MEDS: METHIMAZOLE 5 MG TABLET (FP) PO SCH ×3 (01:02→17:06)
[2016-08-01] MEDS: methylPREDNISolone NA SUCC 40 MG/1 ML VIAL IVPB SCH ×3 (01:02→21:05)
[2016-08-01] MEDS: INSULIN SLIDING SCALE (NOVOLOG) 1 VIAL SQ SCH ×4 (06:09→21:05)
[2016-08-01] MEDS: ACETYLCYSTEINE 20% 200MG/ML 4 ML VIAL *FOR ORAL / INH USE ONLY NEB SCH ×2 (06:51)
[2016-08-01 07:22] LABS: MCH 20.8 pg (25.7-33.7); MCHC 29.4 g/dl (32.0-36.0); MEAN CELL VOLUME 70.9 fl (80-96); MEAN PLT VOLUME 8.7 fl (7.5-11.1); PLATELET COUNT 302 K/MM3 (134-434); RDW 27.7 % (11.6-15.6); WHITE BLOOD COUNT 17.1 K/mm3 (4.0-10.0)
--- NOTE | 2016-08-01 07:38 | PN ---
Progress Note (short form) - Note Progress Note: Chief Complaint: Events noted, notes reviewed, complains of persistent dyspnea but improving, denies any chest pain History of Present Illness: Seen and examined on telemetry. Events noted, notes reviewed, complains of persistent dyspnea but improving, denies any chest pain - Current Medication List Current Medications Acetylcysteine (Mucomyst 20 Oral / Inh Use Only*) 200 mg NEB QIDR [facility] Last Admin: 08/01/16 06:51 Dose: 200 mg Albuterol Sulfate (Ventolin Hfa Inhaler -) 1 puff IH DAILY PRN PRN Reason: SHORTNESS OF BREATH Albuterol Sulfate (Ventolin 0.083% Nebulizer Soln -) 1 amp NEB Q4H [facility] Last Admin: 08/01/16 06:51 Dose: 1 amp Apixaban (Eliquis -) 2.5 mg PO BID [facility] Last Admin: 08/01/16 09:08 Dose: 2.5 mg Arformoterol Tartrate (Brovana (Restricted To Pulmonology/Resp) -) 1 amp NEB BID [facility] Last Admin: 07/31/16 23:59 Dose: 1 amp Atorvastatin Calcium (Lipitor -) 10 mg PO HS [facility] Last Admin: 07/31/16 21:28 Dose: 10 mg Calcium Carbonate (Os-Moncho 500mg -) 500 mg PO BID [facility] Last Admin: 08/01/16 09:07 Dose: 500 mg Escitalopram Oxalate (Lexapro -) 10 mg PO BID [facility] Last Admin: 08/01/16 09:07 Dose: 10 mg Ferrous Sulfate (Feosol -) 325 mg PO BIDWM [facility] Last Admin: 08/01/16 09:08 Dose: 325 mg Furosemide (Lasix -) 20 mg PO DAILY [facility] Last Admin: 08/01/16 09:07 Dose: 20 mg Insulin Aspart (Novolog Vial Sliding Scale -) 1 vial SQ ACHS [facility] PRN Reason: Protocol Last Admin: 08/01/16 06:09 Dose: 6 unit Methimazole (Tapazole -) 15 mg PO Q8H [facility] Last Admin: 08/01/16 01:02 Dose: 15 mg Methylprednisolone Sodium Succinate (Solu-Medrol -) 40 mg IVPB Q8H-IV [facility] Last Admin: 08/01/16 09:07 Dose: 40 mg Non-Formulary Medication (Benzonatate) 200 mg PO BID [facility] Last Admin: 08/01/16 09:10 Dose: 200 mg Nortriptyline HCl (Pamelor -) 30 mg PO HS [facility] Last Admin: 07/31/16 21:28 Dose: 30 mg Nymac-1-Gprv Ethyl Esters (Lovaza -) 2 gm PO BID [facility] Last Admin: 07/31/16 21:28 Dose: 2 gm Pantoprazole Sodium (Protonix -) 40 mg PO DAILY [facility] Last Admin: 07/31/16 09:10 Dose: 40 mg Pramipexole Dihydrochloride (Mirapex -) 0.5 mg PO HS [facility] Last Admin: 07/31/16 21:27 Dose: 0.5 mg Pregabalin (Lyrica -) 75 mg PO BID [facility] Last Admin: 08/01/16 09:07 Dose: 75 mg Roflumilast (Daliresp -) 500 mcg PO DAILY [facility] Last Admin: 07/31/16 10:34 Dose: 500 mcg Sotalol HCl (Betapace -) 80 mg PO BID [facility] Last Admin: 08/01/16 09:07 Dose: 80 mg Sucralfate (Carafate -) 1 gm PO BID [facility] Last Admin: 07/31/16 21:32 Dose: 1 gm Tiotropium [place] (Spiriva -) 1 puff IH DAILY [facility] Last Admin: 08/01/16 09:11 Dose: 1 inh Valsartan (Diovan -) 80 mg PO DAILY [facility] Last Admin: 08/01/16 09:07 Dose: 80 mg Review of Systems Constitutional: denies: chills, fever Cardiovascular: As noted above Respiratory: reports: cough and sputum production Gastrointestinal: denies: nausea, vomiting, diarrhea, constipation or abdominal pain Genitourinary: No symptoms reported Musculoskeletal: No symptoms reported - Objective Vital Signs: Last Vital Signs Temp Pulse Resp BP Pulse Ox 98.1 F 85 20 114/66 94 L 08/01/16 06:00 08/01/16 09:32 08/01/16 06:00 08/01/16 06:00 08/01/16 09:32 Neck: Supple Negative JVD No Bruit Cardiovascular: S1 S2 Regular Rate and Rhythm Respiratory: Scattered Rhonchi Bilaterally Gastrointestinal: Soft Benign Normal Bowel Sounds Edema: No Labs: CBC, BMP 08/01/16 06:08/01/16 06:00 Assessment/Plan ASSESSMENT: 1. Hypercapeniec respiratory failure related to COPD/emphysema exacerbation 2. 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 Paroxysmal atrial fibrillation currently in sinus rhythm [id number] score of 7 on NOAC's 4. HTN 5. NIDDM 6. Hyperlipidemia 7. Parkinson's disease 8. Hyperthyroidism 9. Anemia 10. History of gastritis - gastric AVM post cautery PLAN: 1. Continue Sotalol with close monitoring of QTc interval 2. Continue Diovan 3. Continue Lasix 4. Continue Continue A/C with Eliquis 5. Continue Lovaza and Lipitor 6. Bronchodilators and steroids as per primary team 7. Continue Tapazole Bernie Sharif MD
[2016-08-01 08:20] LABS: ANION GAP 7 (8-16); CALCIUM 9.8 mg/dL (8.5-10.1); CO2 43 mmol/L (21-32); CREATININE 0.7 mg/dL (0.55-1.02); FERRITIN 26.203 ng/ml (6.9-282.5); FREE T4 2.46 ng/dl (0.76-1.46); GLUCOSE,RANDOM 266 mg/dL (74-106); THYROID STIMULATING HORMONE < 0.01 uIU/ml (0.358-3.74)
[2016-08-01] MEDS: PREGABALIN 75 MG CAPSULE PO SCH ×2 (09:07→21:05)
[2016-08-01] MEDS: VALSARTAN 80 MG TABLET (UD) PO SCH (09:07)
[2016-08-01] MEDS: FUROSEMIDE 20 MG TABLET (FP) PO SCH (09:07)
[2016-08-01] MEDS: CALCIUM (OYSTER SHELL) 500 MG TABLET (FP) PO SCH ×2 (09:07→21:04)
[2016-08-01] MEDS: ESCITALOPRAM OXALATE 10 MG TABLET (FP) PO SCH ×2 (09:07→21:04)
[2016-08-01] MEDS: SOTALOL HCL 80 MG TABLET (FP) PO SCH ×2 (09:07→21:04)
[2016-08-01] MEDS: APIXABAN 2.5 MG TABLET PO SCH ×2 (09:08→21:04)
[2016-08-01] MEDS: FERROUS SO4 325 MG TABLET (FP) PO SCH ×2 (09:08→17:06)
[2016-08-01] MEDS: BENZONATATE 200 MG PO SCH ×2 (09:10→21:16)
[2016-08-01] MEDS: TIOTROPIUM BROMIDE 18 MCG/INH (DEVICE W/ 30 CAPSULES) IH SCH (09:11)
[2016-08-01] MEDS: ARFORMOTEROL TARTRATE 15 MCG/2 ML VIAL NEB SCH ×2 (10:01→22:59)
[2016-08-01] MEDS: SUCRALFATE 1 GM TABLET (FP) PO SCH ×2 (10:32→21:04)
[2016-08-01] MEDS: ROFLUMILAST 500 MCG TABLET PO SCH (10:33)
[2016-08-01] MEDS: OMEGA-3 ACID ETHYL ESTERS (FATTY-ACIDS) 1 GM CAPSULE (FP) PO SCH ×2 (11:00→21:05)
--- NOTE | 2016-08-01 11:32 | PN ---
Teaching Attending Note Name of Resident: Channing Sevilla ATTENDING PHYSICIAN STATEMENT I saw and evaluated the patient. I reviewed the resident's note and discussed the case with the resident. I agree with the resident's findings and plan as documented. SUBJECTIVE:continues to have mild dypsnea on exertion. intermittent non productive cough. denies fever, chills, N/V/C/D, palpitations, or CP OBJECTIVE: Last Vital Signs Temp Pulse Resp BP Pulse Ox 98.1 F 85 20 114/66 94 L 08/01/16 06:00 08/01/16 09:32 08/01/16 06:00 08/01/16 06:00 08/01/16 09:32 General NAD CV S1 S2 irregular no murmur Lungs CTA B/ L no wheezing/rales/rhonchi. poor inspiratory effort ASSESSMENT AND PLAN: 86yo F with recent admission of new onset afib with RVR and admitted now for COPD exacerbation 1. Acute COPD exacerbation. saturating 98% on 3L NC. typically uses 2L at home but feeling like she require more oxygen. slowly titrate down steroids. will bring down to BID dosing. cont inhalers. pulmonary on board. nebs prn. 2. new onset afib on eliquis- rate controlled. cont current management. and eliquis 3. Hyperthroidism- started on methimazole last admission. will need to repeat TFT in 6-8weeks 4. Hypokalemia- resolved 5. Iron deficiency anemia- on iron supplementation. hematology consulted 6. DM- uncontrolled. possible due to steroid use. will restart metformin, iss, BGM 7. DVT ppx- on eliquis
[2016-08-01] MEDS: PANTOPRAZOLE 40 MG TABLET (FP) PO SCH (11:41)
[2016-08-01] MEDS ORDERED: INSULIN (NOVOLOG) ASPART 100 UNITS/ML 10ML VIAL ONE (12:15)
--- NOTE | 2016-08-01 14:16 | PN ---
Progress Note (short form) - Note Progress Note: PULMONARY States breathing better. Still some cough and wheezing. Last Vital Signs Temp Pulse Resp BP Pulse Ox 98.1 F 85 20 114/66 94 L 08/01/16 06:00 08/01/16 09:32 08/01/16 06:00 08/01/16 06:00 08/01/16 09:32 Gen: NAD in chair Heart: RRR Lung: scattered rhonchi, wheezes Abd: soft, nontender Ext: no edema CBC, BMP 08/01/16 06:00 08/01/16 06:00 Active Medications Acetylcysteine (Mucomyst 20 Oral / Inh Use Only*) 200 mg NEB QIDR [facility] Last Admin: 08/01/16 06:51 Dose: 200 mg Albuterol Sulfate (Ventolin Hfa Inhaler -) 1 puff IH DAILY PRN PRN Reason: SHORTNESS OF BREATH Albuterol Sulfate (Ventolin 0.083% Nebulizer Soln -) 1 amp NEB Q4H [facility] Last Admin: 08/01/16 06:51 Dose: 1 amp Apixaban (Eliquis -) 2.5 mg PO BID [facility] Last Admin: 08/01/16 09:08 Dose: 2.5 mg Arformoterol Tartrate (Brovana (Restricted To Pulmonology/Resp) -) 1 amp NEB BID [facility] Last Admin: 08/01/16 10:01 Dose: 1 amp Atorvastatin Calcium (Lipitor -) 10 mg PO HS [facility] Last Admin: 07/31/16 21:28 Dose: 10 mg Calcium Carbonate (Os-Moncho 500mg -) 500 mg PO BID [facility] Last Admin: 08/01/16 09:07 Dose: 500 mg Escitalopram Oxalate (Lexapro -) 10 mg PO BID [facility] Last Admin: 08/01/16 09:07 Dose: 10 mg Ferrous Sulfate (Feosol -) 325 mg PO BIDWM [facility] Last Admin: 08/01/16 09:08 Dose: 325 mg Furosemide (Lasix -) 20 mg PO DAILY [facility] Last Admin: 08/01/16 09:07 Dose: 20 mg Insulin Aspart (Novolog Vial Sliding Scale -) 1 vial SQ ACHS [facility] PRN Reason: Protocol Last Admin: 08/01/16 12:23 Dose: 8 unit Metformin HCl (Glucophage -) 500 mg PO DAILY@0700 [facility] Methimazole (Tapazole -) 15 mg PO Q8H [facility] Last Admin: 08/01/16 10:33 Dose: 15 mg Methylprednisolone Sodium Succinate (Solu-Medrol -) 40 mg IVPB BID [facility] Non-Formulary Medication (Benzonatate) 200 mg PO BID [facility] Last Admin: 08/01/16 09:10 Dose: 200 mg Nortriptyline HCl (Pamelor -) 30 mg PO HS [facility] Last Admin: 07/31/16 21:28 Dose: 30 mg Vlonn-1-Zjyc Ethyl Esters (Lovaza -) 2 gm PO BID [facility] Last Admin: 08/01/16 11:00 Dose: Not Given Pantoprazole Sodium (Protonix -) 40 mg PO DAILY [facility] Last Admin: 08/01/16 11:41 Dose: 40 mg Pramipexole Dihydrochloride (Mirapex -) 0.5 mg PO HS [facility] Last Admin: 07/31/16 21:27 Dose: 0.5 mg Pregabalin (Lyrica -) 75 mg PO BID [facility] Last Admin: 08/01/16 09:07 Dose: 75 mg Roflumilast (Daliresp -) 500 mcg PO DAILY [facility] Last Admin: 08/01/16 10:33 Dose: 500 mcg Sotalol HCl (Betapace -) 80 mg PO BID [facility] Last Admin: 08/01/16 09:07 Dose: 80 mg Sucralfate (Carafate -) 1 gm PO BID [facility] Last Admin: 08/01/16 10:32 Dose: 1 gm Tiotropium [place] (Spiriva -) 1 puff IH DAILY [facility] Last Admin: 08/01/16 09:11 Dose: 1 inh Valsartan (Diovan -) 80 mg PO DAILY [facility] Last Admin: 08/01/16 09:07 Dose: 80 mg A/P 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
--- NOTE | 2016-08-01 14:42 | PN ---
Physical Exam: SUBJECTIVE: Patient seen and examined at bedside. No afib overnight noted overnight. Comfortably sitting in chair and reported feeling better. Denied fever, chills, chest pain, abd pain, n/v, bowel or urinary sx. OBJECTIVE: Vital Signs Period Temp Pulse Resp BP Sys/Pinedo Pulse Ox Last 24 Hr 97.7 F-98.3 F 66-93 18-20 106-130/51-68 94-98 GENERAL: The patient is awake, alert, oriented to time and person, on 3L NC. NECK: no JVD LUNGS: bilateral wheezing, less than yesterday, without accessory muscle use. HEART: RRR, S1, S2 without murmur, rub or gallop. ABDOMEN: Soft, nontender, nondistended, normoactive bowel sounds, no guarding, no rebound, no hepatosplenomegaly, no masses. EXTREMITIES: no edema. Laboratory Results - last 24 hr 07/31/16 07/31/16 08/01/16 16:42 20:34 06:00 WBC RBC Hgb Hct MCV MCHC RDW Plt Count MPV Sodium 144 Potassium 3.9 Chloride 94 L Carbon Dioxide 43 H Anion Gap 7 L BUN 45 H D Creatinine 0.7 POC Glucometer 325 243 Random Glucose 266 H Calcium 9.8 Ferritin 26.203 Vitamin B12 885 TSH < 0.01 L D Free T4 2.46 H D 08/01/16 08/01/16 08/01/16 06:00 06:03 11:43 WBC 17.1 H RBC 5.01 Hgb 10.4 L Hct 35.6 MCV 70.9 L MCHC 29.4 L RDW 27.7 H Plt Count 302 MPV 8.7 Sodium Potassium Chloride Carbon Dioxide Anion Gap BUN Creatinine POC Glucometer 255 306 Random Glucose Calcium Ferritin Vitamin B12 TSH Free T4 Active Medications Generic Name Dose Route Start Last Admin Trade Name Freq PRN Reason Stop Dose Admin Acetylcysteine 200 mg 07/29/16 12:00 08/01/16 06:51 Mucomyst 20 Oral / Inh Use Only* NEB 200 mg QIDR [facility] Administration Albuterol Sulfate 1 puff 07/29/16 01:54 Ventolin Hfa Inhaler - IH DAILY PRN SHORTNESS OF BREATH Albuterol Sulfate 1 amp 07/29/16 21:15 08/01/16 06:51 Ventolin 0.083% Nebulizer Soln - NEB 1 amp Q4H [facility] Administration Apixaban 2.5 mg 07/29/16 02:00 08/01/16 09:08 Eliquis - PO 2.5 mg BID [facility] Administration Arformoterol Tartrate 1 amp 07/29/16 22:00 08/01/16 10:01 [place] (Restricted To Pulmonology/Resp) - NEB 1 amp BID [facility] Administration Atorvastatin Calcium 10 mg 07/29/16 02:00 07/31/16 21:28 Lipitor - PO 10 mg HS [facility] Administration Calcium Carbonate 500 mg 07/29/16 02:00 08/01/16 09:07 Os-Moncho 500mg - PO 500 mg BID [facility] Administration Escitalopram Oxalate 10 mg 07/29/16 02:00 08/01/16 09:07 Lexapro - PO 10 mg BID [facility] Administration Ferrous Sulfate 325 mg 07/29/16 02:00 08/01/16 09:08 Feosol - PO 325 mg BIDWM [facility] Administration Furosemide 20 mg 07/30/16 10:00 08/01/16 09:07 Lasix - PO 20 mg DAILY [facility] Administration Insulin Aspart 1 vial 07/29/16 07:00 08/01/16 12:23 Novolog Vial Sliding Scale - SQ 8 unit ACHS [facility] Administration Protocol Metformin HCl 500 mg 08/02/16 07:00 Glucophage - PO DAILY@0700 [facility] Methimazole 15 mg 07/29/16 10:00 08/01/16 10:33 Tapazole - PO 15 mg Q8H [facility] Administration Methylprednisolone Sodium Succinate 40 mg 08/01/16 22:00 Solu-Medrol - IVPB BID [facility] Non-Formulary Medication 200 mg 07/31/16 22:00 08/01/16 09:10 Benzonatate PO 200 mg BID [facility] Administration Nortriptyline HCl 30 mg 07/29/16 02:00 07/31/16 21:28 Pamelor - PO 30 mg HS [facility] Administration Unbiv-3-Giof Ethyl Esters 2 gm 07/29/16 02:00 08/01/16 11:00 Lovaza - PO Not Given BID [facility] Pantoprazole Sodium 40 mg 07/29/16 10:00 08/01/16 11:41 Protonix - PO 40 mg DAILY [facility] Administration Pramipexole Dihydrochloride 0.5 mg 07/29/16 02:00 01/09/17 21:27 Mirapex - PO 0.5 mg HS [facility] Administration Pregabalin 75 mg 07/29/16 02:00 08/01/16 09:07 Lyrica - PO 75 mg BID [facility] Administration Roflumilast 500 mcg 07/29/16 10:00 08/01/16 10:33 Daliresp - PO 500 mcg DAILY [facility] Administration Sotalol HCl 80 mg 07/29/16 02:00 08/01/16 09:07 Betapace - PO 80 mg BID [facility] Administration Sucralfate 1 gm 07/29/16 02:00 08/01/16 10:32 Carafate - PO 1 gm BID [facility] Administration Tiotropium [place] 1 puff 07/29/16 16:00 08/01/16 09:11 Spiriva - IH 1 inh DAILY [facility] Administration Valsartan 80 mg 07/30/16 10:00 08/01/16 09:07 Diovan - PO 80 mg DAILY [facility] Administration ASSESSMENT/PLAN: 86 yo F admitted to med-surg for dyspnea. Dyspnea 2/2 COPD exacerbation - on supplemental 3L O2 (was on home O2 2L) - taper solumedrol 40 IV Q8H to Q12H - duoneb PRN Q4H and mucomyst 200mg NEB - cont. advair, xopenex, daliresp, spiriva - BiPAP PRN A-fib with RVR, new onset 2/2 subclinical hyperthyroidism - rate and rhythm controlled - cont sotalol 80mg PO BID - on eliquis 2.5mg BID Hyperthyroidism - subclinical - cont. methimazole 15mg Q8H - f/u with endocrine as outpatient for thyroid nodules CHF - on lasix PO 20mg daily NIDDM - on SSI and metformin Chronic anemia, microcytic - cont. feosol HTN - cont. sotalol HLD - cont. lipitor and lovaza GERD - cont. protonix and carafate Parkinson's disease - cont. mirapex Depression - cont. pamelor - cont. lexapro herpetic neurolagia - cont. lyrica FEN - IVF not indicated - correct Ca2+ normal - diabetic diet Prophylaxis - DVT: on eliquis - GI: on protonix (home med) - deconditioning: early ambulation with fall precaution Dispo: d/c planning for tomorrow if pt tolerates taper. Visit type - Emergency Visit Emergency Visit: No - New Patient This patient is new to me today: No - Critical Care Critical Care patient: No - Discharge Referral Referred to [facility] Med P.C.: No
[2016-08-01] MEDS ORDERED: ALBUTEROL SO4 2.5/IPRATROPIUM 0.5 INH SOL 3 ML VIAL.NEB. NEB PRN (17:04)
--- NOTE | 2016-08-01 18:51 | PN ---
Progress Note (short form) - Note Progress Note: Patient seen and examined Denies significant chest pains . Some cough and SOB Last Vital Signs Temp Pulse Resp BP Pulse Ox 98.3 F 78 20 110/58 94 L 08/01/16 14:00 08/01/16 14:00 08/01/16 14:00 08/01/16 14:00 08/01/16 10:00 HEENT: SHEILA, EOM Intact Oropharynx: No thrush, No mucositis Cor: RSR, No murmurs, No gallops Lungs: rhonchi diffuse and scattered Abd: Soft, Normal bowel sounds, No organomegaly Ext:No significant edema Skin: No rashes, Integument intact CBC, BMP 08/01/16 06:00 08/01/16 06:00 Current Medications Generic Name Dose Route Start Last Admin Trade Name Freq PRN Reason Stop Dose Admin Albuterol/Ipratropium 1 amp 08/01/16 17:04 Duoneb - NEB Q4H PRN SHORTNESS OF BREATH Apixaban 2.5 mg 07/29/16 02:00 08/01/16 09:08 Eliquis - PO 2.5 mg BID [facility] Administration Arformoterol Tartrate 1 amp 07/29/16 22:00 08/01/16 10:01 Brovana (Restricted To Pulmonology/Resp) - NEB 1 amp BID [facility] Administration Atorvastatin Calcium 10 mg 07/29/16 02:00 07/31/16 21:28 Lipitor - PO 10 mg HS [facility] Administration Calcium Carbonate 500 mg 07/29/16 02:00 08/01/16 09:07 Os-Moncho 500mg - PO 500 mg BID [facility] Administration Escitalopram Oxalate 10 mg 07/29/16 02:00 08/01/16 09:07 Lexapro - PO 10 mg BID [facility] Administration Ferrous Sulfate 325 mg 07/29/16 02:00 08/01/16 17:06 Feosol - PO 325 mg BIDWM [facility] Administration Furosemide 20 mg 07/30/16 10:00 08/01/16 09:07 Lasix - PO 20 mg DAILY [facility] Administration Insulin Aspart 1 vial 07/29/16 07:00 08/01/16 18:06 Novolog Vial Sliding Scale - SQ 8 unit ACHS [facility] Administration Protocol Metformin HCl 500 mg 08/02/16 07:00 Glucophage - PO DAILY@0700 [facility] Methimazole 15 mg 07/29/16 10:00 08/01/16 17:06 Tapazole - PO 15 mg Q8H [facility] Administration Methylprednisolone Sodium Succinate 40 mg 08/01/16 22:00 Solu-Medrol - IVPB BID [facility] Non-Formulary Medication 200 mg 07/31/16 22:00 08/01/16 09:10 Benzonatate PO 200 mg BID [facility] Administration Nortriptyline HCl 30 mg 07/29/16 02:00 07/31/16 21:28 Pamelor - PO 30 mg HS [facility] Administration Bgygw-7-Vvme Ethyl Esters 2 gm 07/29/16 02:00 08/01/16 11:00 Lovaza - PO Not Given BID [facility] Pantoprazole Sodium 40 mg 07/29/16 10:00 08/01/16 11:41 Protonix - PO 40 mg DAILY [facility] Administration Pramipexole Dihydrochloride 0.5 mg 07/29/16 02:00 07/31/16 21:27 Mirapex - PO 0.5 mg HS [facility] Administration Pregabalin 75 mg 07/29/16 02:00 08/01/16 09:07 Lyrica - PO 75 mg BID [facility] Administration Roflumilast 500 mcg 07/29/16 10:00 08/01/16 10:33 Daliresp - PO 500 mcg DAILY [facility] Administration Sotalol HCl 80 mg 07/29/16 02:00 08/01/16 09:07 Betapace - PO 80 mg BID [facility] Administration Sucralfate 1 gm 07/29/16 02:00 08/01/16 10:32 Carafate - PO 1 gm BID [facility] Administration Tiotropium [place] 1 puff 07/29/16 16:00 08/01/16 09:11 Spiriva - IH 1 inh DAILY [facility] Administration Valsartan 80 mg 07/30/16 10:00 08/01/16 09:07 Diovan - PO 80 mg DAILY [facility] Administration Impression: Multiple co-morbid prblems Exacerbation of COPD Anemia IN 12/02/15- serum Fe++-- 9, Fe++ sat--6% In 04/19/16-serum Fe++-- 17, Fe++ sat-4% In 07/14/16-serum Fe++12 , Fe++ sat-6% Dr. Wayne oliva patient-in 05/07. 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 [place] Fe++ deficiency was related to upper GI bleeding. Currently ASA discontinued and on eliquis 2.5 BID. On oral Fe++. Would monitor carefully. If Fe++ sat. is low -- will give Venofer.
[2016-08-01] MEDS: ATORVASTATIN CA 10 MG TABLET (FP) PO SCH (21:04)
[2016-08-01] MEDS: PRAMIPEXOLE DIHYDROCHLORIDE 0.5 MG TABLET PO SCH (21:05)
[2016-08-01] MEDS: NORTRIPTYLINE HCL 10 MG CAPSULE PO SCH (21:05)
[2016-08-02] MEDS: METHIMAZOLE 5 MG TABLET (FP) PO SCH ×3 (01:07→17:35)
[2016-08-02] MEDS ORDERED: INSULIN (NOVOLOG) ASPART 100 UNITS/ML 10ML VIAL ONE ×4 (06:08→21:19)
[2016-08-02] MEDS: metFORMIN HCL 500 MG TABLET (FP) PO SCH (06:19)
[2016-08-02] MEDS: INSULIN SLIDING SCALE (NOVOLOG) 1 VIAL SQ SCH ×4 (06:19→21:23)
[2016-08-02 07:19] LABS: CALCIUM 8.9 mg/dL (8.5-10.1); CREATININE 0.6 mg/dL (0.55-1.02)
--- NOTE | 2016-08-02 07:51 | PN ---
Physical Exam: SUBJECTIVE: Patient seen and examined at bedside. No afib on monitor noted. Comfortably sleeping in bed and reported feeling better. Denied fever, chills, chest pain, abd pain, n/v, bowel or urinary sx. OBJECTIVE: Vital Signs Period Temp Pulse Resp BP Sys/Pinedo Pulse Ox Last 24 Hr 97.7 F-98.3 F 64-85 18-20 110-134/58-71 92-96 GENERAL: The patient is awake, alert, oriented to time and person, on 3L NC. NECK: no JVD LUNGS: CTAB, no wheezing, without accessory muscle use. HEART: RRR, S1, S2 without murmur, rub or gallop. ABDOMEN: Soft, nontender, nondistended, normoactive bowel sounds, no guarding, no rebound, no hepatosplenomegaly, no masses. EXTREMITIES: no edema. Laboratory Results - last 24 hr 08/01/16 08/01/16 08/01/16 06:00 06:00 06:00 WBC 17.1 H RBC 5.01 Hgb 10.4 L Hct 35.6 MCV 70.9 L MCHC 29.4 L RDW 27.7 H Plt Count 302 MPV 8.7 Sodium 144 Potassium 3.9 Chloride 94 L Carbon Dioxide 43 H Anion Gap 7 L BUN 45 H D Creatinine 0.7 POC Glucometer Random Glucose 266 H Calcium 9.8 Iron 54 TIBC 305 Iron Saturation 18 Ferritin 26.203 Vitamin B12 885 TSH < 0.01 L D Free T4 2.46 H D 08/01/16 08/01/16 08/01/16 11:43 17:03 21:03 WBC RBC Hgb Hct MCV MCHC RDW Plt Count MPV Sodium Potassium Chloride Carbon Dioxide Anion Gap BUN Creatinine POC Glucometer 306 331 223 Random Glucose Calcium Iron TIBC Iron Saturation Ferritin Vitamin B12 TSH Free T4 08/02/16 08/02/16 05:35 05:48 WBC RBC Hgb Hct MCV MCHC RDW Plt Count MPV Sodium 142 Potassium 4.0 Chloride 94 L Carbon Dioxide 44 H Anion Gap 4 L BUN 47 H Creatinine 0.6 POC Glucometer 247 Random Glucose 260 H Calcium 8.9 Iron TIBC Iron Saturation Ferritin Vitamin B12 TSH Free T4 Active Medications Generic Name Dose Route Start Last Admin Trade Name Freq PRN Reason Stop Dose Admin Albuterol/Ipratropium 1 amp 01/10/17 17:04 Duoneb - NEB Q4H PRN SHORTNESS OF BREATH Apixaban 2.5 mg 07/29/16 02:00 08/01/16 21:04 Eliquis - PO 2.5 mg BID MICHAEL Administration Arformoterol Tartrate 1 amp 07/29/16 22:00 08/01/16 22:59 Brovana (Restricted To Pulmonology/Resp) - NEB 1 amp BID MICHAEL Administration Atorvastatin Calcium 10 mg 07/29/16 02:00 08/01/16 21:04 Lipitor - PO 10 mg HS MICHAEL Administration Calcium Carbonate 500 mg 07/29/16 02:00 08/01/16 21:04 Os-Moncho 500mg - PO 500 mg BID MICHAEL Administration Escitalopram Oxalate 10 mg 07/29/16 02:00 08/01/16 21:04 Lexapro - PO 10 mg BID MICHAEL Administration Ferrous Sulfate 325 mg 07/29/16 02:00 08/01/16 17:06 Feosol - PO 325 mg BIDWM MICHAEL Administration Furosemide 20 mg 07/30/16 10:00 08/01/16 09:07 Lasix - PO 20 mg DAILY MICHAEL Administration Insulin Aspart 1 vial 07/29/16 07:00 08/02/16 06:19 Novolog Vial Sliding Scale - SQ 4 unit ACHS MICHAEL Administration Protocol Metformin HCl 500 mg 08/02/16 07:00 08/02/16 06:19 Glucophage - PO 500 mg DAILY@0700 MICHAEL Administration Methimazole 15 mg 07/29/16 10:00 08/02/16 01:07 Tapazole - PO 15 mg Q8H MICHAEL Administration Methylprednisolone Sodium Succinate 40 mg 08/01/16 22:00 08/01/16 21:05 Solu-Medrol - IVPB 40 mg BID MICHAEL Administration Non-Formulary Medication 200 mg 07/31/16 22:00 08/01/16 21:16 Benzonatate PO 200 mg BID MICHAEL Administration Nortriptyline HCl 30 mg 07/29/16 02:00 08/01/16 21:05 Pamelor - PO 30 mg HS MICHAEL Administration [id number] Ethyl Esters 2 gm 07/29/16 02:00 08/01/16 21:05 Lovaza - PO 2 gm BID MICHAEL Administration Pantoprazole Sodium 40 mg 07/29/16 10:00 08/01/16 11:41 Protonix - PO 40 mg DAILY MICHAEL Administration Pramipexole Dihydrochloride 0.5 mg 07/29/16 02:00 08/01/16 21:05 Mirapex - PO 0.5 mg HS MICHAEL Administration Pregabalin 75 mg 07/29/16 02:00 08/01/16 21:05 Lyrica - PO 75 mg BID MICHAEL Administration Roflumilast 500 mcg 07/29/16 10:00 08/01/16 10:33 Daliresp - PO 500 mcg DAILY MICHAEL Administration Sotalol HCl 80 mg 07/29/16 02:00 08/01/16 21:04 Betapace - PO 80 mg BID MICHAEL Administration Sucralfate 1 gm 07/29/16 02:00 08/01/16 21:04 Carafate - PO 1 gm BID MICHAEL Administration Tiotropium [place] 1 puff 07/29/16 16:00 08/01/16 09:11 Spiriva - IH 1 inh DAILY MICHAEL Administration Valsartan 80 mg 07/30/16 10:00 08/01/16 09:07 Diovan - PO 80 mg DAILY MICHAEL Administration ASSESSMENT/PLAN: 86 yo F admitted to med-surg for dyspnea. Dyspnea 2/2 COPD exacerbation - on supplemental 3L O2 (was on home O2 2L) - on solumedrol 40 IV Q12H * will transition to PO slow taper tomorrow * was on PO predisone 5mg BID at home - duoneb PRN Q4H - cont. advair, xopenex, daliresp, spiriva - BiPAP PRN A-fib with RVR, new onset 2/2 subclinical hyperthyroidism - rate and rhythm controlled - cont sotalol 80mg PO BID - on eliquis 2.5mg BID Hyperthyroidism - subclinical - cont. methimazole 15mg Q8H - f/u with endocrine as outpatient for thyroid nodules CHF - on lasix PO 20mg daily NIDDM - on SSI and metformin Chronic anemia, microcytic - cont. feosol HTN - cont. sotalol HLD - cont. lipitor and lovaza GERD - cont. protonix and carafate Parkinson's disease - cont. mirapex Depression - cont. pamelor - cont. lexapro herpetic neurolagia - cont. lyrica FEN - IVF not indicated - correct Ca2+ normal - diabetic diet Prophylaxis - DVT: on eliquis - GI: on protonix (home med) - deconditioning: early ambulation with fall precaution Dispo: d/c planning tomorrow after pre-post Visit type - Emergency Visit Emergency Visit: No - New Patient This patient is new to me today: No - Critical Care Critical Care patient: No - Discharge Referral Referred to [facility] Med [facility] No
--- NOTE | 2016-08-02 08:57 | PN ---
Teaching Attending Note Name of Resident: Channing Sevilla ATTENDING PHYSICIAN STATEMENT I saw and evaluated the patient. I reviewed the resident's note and discussed the case with the resident. I agree with the resident's findings and plan as documented. SUBJECTIVE:states breathing has improved. able to ambulate to bathroom without difficult. cough has improved. denies CP, fever, chills, N/V/C/D OBJECTIVE: Last Vital Signs Temp Pulse Resp BP Pulse Ox 97.9 F 76 20 122/70 96 08/02/16 06:00 08/02/16 06:00 08/02/16 06:00 08/02/16 06:00 08/02/16 01:34 General NAD CV S1 S2 irregular no murmur Lungs CTA B/ L no wheezing/rales/rhonchi. improved inspiratory effort ASSESSMENT AND PLAN: 86yo F with recent admission of new onset afib with RVR and admitted now for COPD exacerbation 1. Acute COPD exacerbation. saturating 99% on 2L NC. steroids titrated down to q12H dosing but received 3 doses due to time of change. will leave at current dosing. with plan to switch to oral in the AM. check pre and post O2 to check oxygen requirements. typically uses 2L at home and was on 3L while hospitalized. cont inhalers. pulmonary on board. nebs prn. 2. new onset afib on eliquis- rate controlled. cont current management. and eliquis 3. Hyperthroidism- started on methimazole last admission. will need to repeat TFT in 6-8weeks 4. Hypokalemia- resolved 5. Iron deficiency anemia- on iron supplementation. hematology consulted 6. DM- uncontrolled. possible due to steroid use. restarted metformin, iss, BGM 7. DVT ppx- on eliquis 8. d/c planning for tomorrow pending continued improved respiratory status
[2016-08-02] MEDS: FERROUS SO4 325 MG TABLET (FP) PO SCH ×2 (09:32→17:33)
[2016-08-02] MEDS: BENZONATATE 200 MG PO SCH ×2 (09:32→21:20)
[2016-08-02] MEDS: ROFLUMILAST 500 MCG TABLET PO SCH (09:33)
[2016-08-02] MEDS: SUCRALFATE 1 GM TABLET (FP) PO SCH ×2 (09:33→21:21)
[2016-08-02] MEDS: SOTALOL HCL 80 MG TABLET (FP) PO SCH ×2 (09:33→21:21)
[2016-08-02] MEDS: APIXABAN 2.5 MG TABLET PO SCH ×2 (09:33→21:21)
[2016-08-02] MEDS: VALSARTAN 80 MG TABLET (UD) PO SCH (09:34)
[2016-08-02] MEDS: PANTOPRAZOLE 40 MG TABLET (FP) PO SCH (09:34)
[2016-08-02] MEDS: ESCITALOPRAM OXALATE 10 MG TABLET (FP) PO SCH ×2 (09:34→21:22)
[2016-08-02] MEDS: FUROSEMIDE 20 MG TABLET (FP) PO SCH (09:34)
[2016-08-02] MEDS: OMEGA-3 ACID ETHYL ESTERS (FATTY-ACIDS) 1 GM CAPSULE (FP) PO SCH ×2 (09:34→21:25)
[2016-08-02] MEDS: TIOTROPIUM BROMIDE 18 MCG/INH (DEVICE W/ 30 CAPSULES) IH SCH (09:35)
[2016-08-02] MEDS: methylPREDNISolone NA SUCC 40 MG/1 ML VIAL IVPB SCH ×2 (09:35→21:24)
[2016-08-02] MEDS: PREGABALIN 75 MG CAPSULE PO SCH ×2 (09:35→21:23)
[2016-08-02] MEDS: CALCIUM (OYSTER SHELL) 500 MG TABLET (FP) PO SCH ×2 (09:35→21:23)
[2016-08-02] MEDS: ARFORMOTEROL TARTRATE 15 MCG/2 ML VIAL NEB SCH ×2 (10:00→22:53)
--- NOTE | 2016-08-02 10:29 | PN ---
Progress Note (short form) - Note Progress Note: PULMONARY OOB TO CHAIR APPEARS STABLE/RECEIVING NEB VSS ANICTERIC DISTANT BREATH SOUNDS W SCATTERED WHEEZE S1S2 RSR W ECTOPICS BS+ SOFT NONTENDER NO EDEMA LABS/MEDS/IMAGING/NOTES REVIEWED A/P Acute on Chronic Hypoxic and Hypercapneic Respiratory Failure improving Acute COPD Exacerbation Atrial Fibrillation now NSR CHF Parkinsons - medrol taper to oral hopefully in AM - inhaled bronchodilators - O2 to keep SpO2 >90% - BiPAP at night and PRN during daytime - DVT prophylaxis will follow Carmela GREEN MD
--- NOTE | 2016-08-02 10:45 | PN ---
Progress Note, Physician History of Present Illness: Dyspnea and sensorium improving. - Current Medication List Current Medications: Active Medications Albuterol/Ipratropium (Duoneb -) 1 amp NEB Q4H PRN PRN Reason: SHORTNESS OF BREATH Apixaban (Eliquis -) 2.5 mg PO BID [facility] Last Admin: 08/02/16 09:33 Dose: 2.5 mg Arformoterol Tartrate (Brovana (Restricted To Pulmonology/Resp) -) 1 amp NEB BID [facility] Last Admin: 08/01/16 22:59 Dose: 1 amp Atorvastatin Calcium (Lipitor -) 10 mg PO HS [facility] Last Admin: 08/01/16 21:04 Dose: 10 mg Calcium Carbonate (Os-Moncho 500mg -) 500 mg PO BID [facility] Last Admin: 08/02/16 09:35 Dose: 500 mg Escitalopram Oxalate (Lexapro -) 10 mg PO BID [facility] Last Admin: 08/02/16 09:34 Dose: 10 mg Ferrous Sulfate (Feosol -) 325 mg PO BIDWM [facility] Last Admin: 08/02/16 09:32 Dose: 325 mg Furosemide (Lasix -) 20 mg PO DAILY [facility] Last Admin: 08/02/16 09:34 Dose: 20 mg Insulin Aspart (Novolog Vial Sliding Scale -) 1 vial SQ ACHS [facility] PRN Reason: Protocol Last Admin: 08/02/16 06:19 Dose: 4 unit Metformin HCl (Glucophage -) 500 mg PO DAILY@0700 [facility] Last Admin: 08/02/16 06:19 Dose: 500 mg Methimazole (Tapazole -) 15 mg PO Q8H [facility] Last Admin: 08/02/16 09:35 Dose: 15 mg Methylprednisolone Sodium Succinate (Solu-Medrol -) 40 mg IVPB BID [facility] Last Admin: 08/02/16 09:35 Dose: 40 mg Non-Formulary Medication (Benzonatate) 200 mg PO BID [facility] Last Admin: 08/02/16 09:32 Dose: 200 mg Nortriptyline HCl (Pamelor -) 30 mg PO HS [facility] Last Admin: 08/01/16 21:05 Dose: 30 mg [id number] Ethyl Esters (Lovaza -) 2 gm PO BID [facility] Last Admin: 08/02/16 09:34 Dose: 2 gm Pantoprazole Sodium (Protonix -) 40 mg PO DAILY [facility] Last Admin: 08/02/16 09:34 Dose: 40 mg Pramipexole Dihydrochloride (Mirapex -) 0.5 mg PO HS [facility] Last Admin: 08/01/16 21:05 Dose: 0.5 mg Pregabalin (Lyrica -) 75 mg PO BID [facility] Last Admin: 08/02/16 09:35 Dose: 75 mg Roflumilast (Daliresp -) 500 mcg PO DAILY [facility] Last Admin: 08/02/16 09:33 Dose: 500 mcg Sotalol HCl (Betapace -) 80 mg PO BID [facility] Last Admin: 08/02/16 09:33 Dose: 80 mg Sucralfate (Carafate -) 1 gm PO BID [facility] Last Admin: 08/02/16 09:33 Dose: 1 gm Tiotropium [place] (Spiriva -) 1 puff IH DAILY [facility] Last Admin: 08/02/16 09:35 Dose: 1 inh Valsartan (Diovan -) 80 mg PO DAILY [facility] Last Admin: 08/02/16 09:34 Dose: 80 mg - Objective Vital Signs: Vital Signs Temperature 97.9 F 08/02/16 06:00 Pulse Rate 76 08/02/16 06:00 Respiratory Rate 20 08/02/16 06:00 Blood Pressure 122/70 08/02/16 06:00 O2 Sat by Pulse Oximetry (%) 96 08/02/16 01:34 Constitutional: Yes: No Distress, Calm Neck: Yes: Supple Cardiovascular: Yes: Regular Rate and Rhythm Respiratory: Yes: Regular, Diminished, On Nasal O2 Gastrointestinal: Yes: Normal Bowel Sounds, Soft Edema: Yes Edema: LLE: Trace, RLE: Trace Labs: CBC, BMP 08/01/16 06:00 08/02/16 05:35 Problem List - Problems (1) Acute on chronic respiratory failure with hypoxia and hypercapnia Code(s): J96.21 - ACUTE AND CHRONIC RESPIRATORY FAILURE WITH HYPOXIA J96.22 - ACUTE AND CHRONIC RESPIRATORY FAILURE WITH HYPERCAPNIA (2) Acute exacerbation of chronic obstructive pulmonary disease Code(s): J44.1 - CHRONIC OBSTRUCTIVE PULMONARY DISEASE W (ACUTE) EXACERBATION (3) Coronary artery disease Code(s): I25.10 - ATHSCL HEART DISEASE OF [place] CORONARY ARTERY W/O ANG PCTRS Qualifiers: Coronary Disease-Associated Artery/Lesion type: [place] artery [place] vs. transplanted heart: [place] heart Associated angina: without angina Qualified Code(s): I25.10 - Atherosclerotic heart disease of [place] coronary artery without angina pectoris (4) Diastolic dysfunction with chronic heart failure Code(s): I50.32 - CHRONIC DIASTOLIC (CONGESTIVE) HEART FAILURE (5) Gastric AV malformation Code(s): Q27.33 - ARTERIOVENOUS MALFORMATION OF DIGESTIVE SYSTEM VESSEL (6) HTN (hypertension) Code(s): I10 - ESSENTIAL (PRIMARY) HYPERTENSION Qualifiers: Hypertension type: essential hypertension Qualified Code(s): I10 - Essential (primary) hypertension (7) Hyperlipidemia Code(s): E78.5 - HYPERLIPIDEMIA, UNSPECIFIED Qualifiers: Hyperlipidemia type: mixed hyperlipidemia Qualified Code(s): E78.2 - Mixed hyperlipidemia (8) Hyperthyroidism Code(s): E05.90 - THYROTOXICOSIS, UNSP WITHOUT THYROTOXIC CRISIS OR STORM (9) Leukocytosis Code(s): D72.829 - ELEVATED WHITE BLOOD CELL COUNT, UNSPECIFIED Qualifiers: Leukocytosis type: other Qualified Code(s): D72.828 - Other elevated white blood cell count (10) Upper GI bleed Code(s): K92.2 - GASTROINTESTINAL HEMORRHAGE, UNSPECIFIED (11) Premature ventricular beat Code(s): I49.3 - VENTRICULAR PREMATURE DEPOLARIZATION (12) Paroxysmal atrial fibrillation Code(s): I48.0 - PAROXYSMAL ATRIAL FIBRILLATION (13) Diabetes Code(s): E11.9 - TYPE 2 DIABETES MELLITUS WITHOUT COMPLICATIONS Qualifiers: Diabetes mellitus type: type 2 Diabetes mellitus complication status: without complication Diabetes mellitus 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 Hypercapeniec respiratory failure related to COPD/emphysema exacerbation 2. 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 Paroxysmal atrial fibrillation currently in sinus rhythm [id number] score of 7 on NOAC's 4. HTN 5. NIDDM 6. Hyperlipidemia 7. Parkinson's disease 8. Hyperthyroidism 9. Anemia 10. History of gastritis - gastric AVM post cautery PLAN: 1. Continue Sotalol 80 bid with close monitoring of QTc interval 2. Continue Diovan 80 qd 3. Continue Lasix 20 qd 4. Continue Continue A/C with Eliquis 2.5 bid 5. Continue Lovaza 2 bid and Lipitor 10 qhs 6. Bronchodilators, Daliresp, O2 and Bipap as needed with steroid taper as per primary team 7. Continue Tapazole 15 q8 8. GI prophylaxis
[2016-08-02] MEDS ORDERED: PT OWN MED DRAWER 7, Y5N ONE ×2 (17:35→18:12)
[2016-08-02] MEDS: ATORVASTATIN CA 10 MG TABLET (FP) PO SCH (21:22)
[2016-08-02] MEDS: PRAMIPEXOLE DIHYDROCHLORIDE 0.5 MG TABLET PO SCH (21:24)
[2016-08-02] MEDS: NORTRIPTYLINE HCL 10 MG CAPSULE PO SCH (21:25)
[2016-08-03] MEDS ORDERED: PT OWN MED DRAWER 7, Y5N ONE ×3 (02:16→14:46)
[2016-08-03] MEDS: METHIMAZOLE 5 MG TABLET (FP) PO SCH ×2 (02:17→10:41)
[2016-08-03] MEDS ORDERED: dilTIAZem HCL 50 MG/10 ML - 10 ML VIAL IVPUSH ONE (06:16)
--- NOTE | 2016-08-03 06:27 | HOSP ---
Subjective - Review of Symptoms Subjective: The pt is lying in bed comfortably. She denies chest pain, SOB, palpitations, dizziness. Pulmonary: No: Dyspnea Cardiovascular: No: Chest Pain, Palpitations Gastrointestinal: No: Nausea, Abdominal Pain Physical Examination Vital Signs: Vital Signs Temperature 97.7 F 08/03/16 01:32 Pulse Rate 71 08/03/16 01:32 Respiratory Rate 18 08/03/16 01:32 Blood Pressure 117/54 08/03/16 01:32 O2 Sat by Pulse Oximetry (%) 92 L 08/02/16 21:00 Constitutional: Yes: Well Nourished, No Distress, Calm Eyes: Yes: Conjunctiva Clear HENT: Yes: Atraumatic, Normocephalic Neck: Yes: Supple, Trachea Midline Cardiovascular: Yes: Pulse Irregular Respiratory: Yes: Regular, Diminished Labs: CBC, BMP 08/01/16 06:00 08/02/16 05:35 Hospitalist Encounter Assessment: 86yo F with recent admission of new onset afib with RVR and admitted now for COPD exacerbation. Outcome: We were called to assess the pt. Her athletic monitor shoved rapid A.Fib at rate 130-140. We recommended to give her Sotalol dose Stat, EKG and troponins. Primary Physician Notified: Erick Chu Recommendations/Interventions: F/U EKG, Troponins. Visit type - Emergency Visit Emergency Visit: Yes ED Registration Date: 07/31/16 Care time: The patient presented to the Emergency Department on the above date and was hospitalized for further evaluation of their emergent condition. - New Patient This patient is new to me today: No - Critical Care Critical Care patient: No
[2016-08-03] MEDS: INSULIN SLIDING SCALE (NOVOLOG) 1 VIAL SQ SCH ×2 (06:28→12:50)
[2016-08-03] MEDS: metFORMIN HCL 500 MG TABLET (FP) PO SCH ×2 (06:29→06:30)
[2016-08-03] MEDS: SOTALOL HCL 80 MG TABLET (FP) PO SCH ×2 (06:30→10:34)
[2016-08-03 08:06] LABS: HEMATOCRIT 38.3 % (34.0-46.6)
[2016-08-03 09:30] VITALS: BP 104/55; TEMP 98.4
[2016-08-03] MEDS: FUROSEMIDE 20 MG TABLET (FP) PO SCH (10:32)
[2016-08-03] MEDS: FERROUS SO4 325 MG TABLET (FP) PO SCH (10:32)
[2016-08-03] MEDS: CALCIUM (OYSTER SHELL) 500 MG TABLET (FP) PO SCH (10:32)
[2016-08-03] MEDS: PANTOPRAZOLE 40 MG TABLET (FP) PO SCH (10:32)
[2016-08-03] MEDS: APIXABAN 2.5 MG TABLET PO SCH (10:32)
[2016-08-03] MEDS: VALSARTAN 80 MG TABLET (UD) PO SCH (10:32)
[2016-08-03] MEDS: ESCITALOPRAM OXALATE 10 MG TABLET (FP) PO SCH (10:32)
[2016-08-03] MEDS: PREGABALIN 75 MG CAPSULE PO SCH (10:32)
[2016-08-03] MEDS: methylPREDNISolone NA SUCC 40 MG/1 ML VIAL IVPB SCH (10:32)
[2016-08-03] MEDS: OMEGA-3 ACID ETHYL ESTERS (FATTY-ACIDS) 1 GM CAPSULE (FP) PO SCH (10:33)
[2016-08-03] MEDS: BENZONATATE 200 MG PO SCH (10:34)
[2016-08-03] MEDS: SUCRALFATE 1 GM TABLET (FP) PO SCH (10:35)
[2016-08-03] MEDS: ROFLUMILAST 500 MCG TABLET PO SCH (10:36)
[2016-08-03] MEDS: TIOTROPIUM BROMIDE 18 MCG/INH (DEVICE W/ 30 CAPSULES) IH SCH (10:44)
[2016-08-03 11:13] VITALS: PULSE 86
[2016-08-03] MEDS: ARFORMOTEROL TARTRATE 15 MCG/2 ML VIAL NEB SCH (11:13)
--- NOTE | 2016-08-03 11:19 | EKG ---
Test Reason : Blood Pressure : / mmHG Vent. Rate : 104 BPM Atrial Rate : 104 BPM P-R Int : 116 ms QRS Dur : 074 ms QT Int : 338 ms P-R-T Axes : 028 -07 032 degrees QTc Int : 444 ms SINUS TACHYCARDIA WITH PREMATURE ATRIAL COMPLEXES NONSPECIFIC ST AND T WAVE ABNORMALITY ABNORMAL ECG WHEN COMPARED WITH ECG OF 30-JUL-2016 10:59, PREMATURE ATRIAL COMPLEXES ARE NOW PRESENT T WAVE INVERSION NO LONGER EVIDENT IN ANTERIOR LEADS Confirmed by JULIENNE PANCHAL MD ([id number]) on 08/03/2016 11:18:55 AM Referred By: Confirmed By:JULIENNE PANCHAL MD
--- NOTE | 2016-08-03 12:10 | PN ---
Teaching Attending Note Name of Resident: Channing Sevilla ATTENDING PHYSICIAN STATEMENT I saw and evaluated the patient. I reviewed the resident's note and discussed the case with the resident. I agree with the resident's findings and plan as documented. SUBJECTIVE:states she had episode of CP in the morning that self resolved. on the monitor noted to be in afib with RVR 180's. since then noted to be on the monitor in 80's. denies SOB, fever, chills, cough OBJECTIVE: Last Vital Signs Temp Pulse Resp BP Pulse Ox 98.4 F 86 20 104/55 94 L 08/03/16 08:40 08/03/16 11:12 08/03/16 08:40 08/03/16 08:40 08/03/16 11:12 General NAD CV S1 S2 regular no murmur Lungs CTA B/ L no wheezing/rales/rhonchi. improved inspiratory effort ASSESSMENT AND PLAN: 86yo F with recent admission of new onset afib with RVR and admitted now for COPD exacerbation 1. Acute COPD exacerbation. saturating 99% on 3L NC. evalauted and requiring 3L NC to maintain spO2 >90%. will start slow steroid taper. decrease by 10mg every 3 days until 20 mg then will be evaluated by pulmonary for further titration. cont inhalers. pulmonary on board. nebs prn. 2. new onset afib on eliquis- episode this AM with RVR which resolved with AM dose of sotalol. notified cardio of event this AM. no anticipation of change at this time. now sinus rhythm. on eliquis 3. Hyperthroidism- started on methimazole last admission. will need to repeat TFT in 6-8weeks 4. Hypokalemia- resolved 5. Iron deficiency anemia- on iron supplementation. hematology consulted 6. DM- uncontrolled. start levemir 5 units QHS. cont metformin, iss, BGM 7. DVT ppx- on eliquis 8. d/c to [facility] after cardio eval
--- NOTE | 2016-08-03 12:23 | PN ---
Progress Note, Physician Chief Complaint: Events noted Episode of atrial arrhythmia this am, but now in sinus rhythm Not in distress History of Present Illness: Patient was seen and examined. Awake and alert. Chart was reviewed Denies chest pain, SOB or palpitations - Current Medication List Current Medications: Active Medications Albuterol/Ipratropium (Duoneb -) 1 amp NEB Q4H PRN PRN Reason: SHORTNESS OF BREATH Last Admin: 08/02/16 17:25 Dose: 1 amp Apixaban (Eliquis -) 2.5 mg PO BID [facility] Last Admin: 08/03/16 10:32 Dose: 2.5 mg Arformoterol Tartrate (Brovana (Restricted To Pulmonology/Resp) -) 1 amp NEB BID [facility] Last Admin: 08/03/16 11:13 Dose: 1 amp Atorvastatin Calcium (Lipitor -) 10 mg PO HS [facility] Last Admin: 08/02/16 21:22 Dose: 10 mg Calcium Carbonate (Os-Moncho 500mg -) 500 mg PO BID [facility] Last Admin: 08/03/16 10:32 Dose: 500 mg Escitalopram Oxalate (Lexapro -) 10 mg PO BID [facility] Last Admin: 08/03/16 10:32 Dose: 10 mg Ferrous Sulfate (Feosol -) 325 mg PO BIDWM [facility] Last Admin: 08/03/16 10:32 Dose: 325 mg Furosemide (Lasix -) 20 mg PO DAILY [facility] Last Admin: 08/03/16 10:32 Dose: 20 mg Insulin Aspart (Novolog Vial Sliding Scale -) 1 vial SQ ACHS [facility] PRN Reason: Protocol Last Admin: 08/03/16 06:28 Dose: 4 unit Metformin HCl (Glucophage -) 500 mg PO DAILY@0700 [facility] Last Admin: 08/03/16 06:30 Dose: 500 mg Methimazole (Tapazole -) 15 mg PO Q8H [facility] Last Admin: 08/03/16 10:41 Dose: 15 mg Methylprednisolone Sodium Succinate (Solu-Medrol -) 40 mg IVPB BID [facility] Last Admin: 08/03/16 10:32 Dose: 40 mg Non-Formulary Medication (Benzonatate) 200 mg PO BID [facility] Last Admin: 08/03/16 10:34 Dose: 200 mg Nortriptyline HCl (Pamelor -) 30 mg PO HS [facility] Last Admin: 08/02/16 21:25 Dose: 30 mg [id number] Ethyl Esters (Lovaza -) 2 gm PO BID [facility] Last Admin: 08/03/16 10:33 Dose: 2 gm Pantoprazole Sodium (Protonix -) 40 mg PO DAILY [facility] Last Admin: 08/03/16 10:32 Dose: 40 mg Pramipexole Dihydrochloride (Mirapex -) 0.5 mg PO HS [facility] Last Admin: 08/02/16 21:24 Dose: 0.5 mg Pregabalin (Lyrica -) 75 mg PO BID [facility] Last Admin: 08/03/16 10:32 Dose: 75 mg Roflumilast (Daliresp -) 500 mcg PO DAILY [facility] Last Admin: 08/03/16 10:36 Dose: 500 mcg Sotalol HCl (Betapace -) 80 mg PO BID [facility] Last Admin: 08/03/16 10:34 Dose: Not Given Sucralfate (Carafate -) 1 gm PO BID [facility] Last Admin: 08/03/16 10:35 Dose: 1 gm Tiotropium [place] (Spiriva -) 1 puff IH DAILY [facility] Last Admin: 08/03/16 10:44 Dose: 1 inh Valsartan (Diovan -) 80 mg PO DAILY [facility] Last Admin: 08/03/16 10:32 Dose: 80 mg - Objective Vital Signs: Vital Signs Temperature 98.4 F 08/03/16 08:40 Pulse Rate 86 08/03/16 11:12 Respiratory Rate 20 08/03/16 08:40 Blood Pressure 104/55 08/03/16 08:40 O2 Sat by Pulse Oximetry (%) 94 L 08/03/16 11:12 Neck: Yes: Supple Cardiovascular: Yes: Regular Rate and Rhythm, S1, S2 Respiratory: Yes: CTA Bilaterally Gastrointestinal: Yes: Normal Bowel Sounds, Soft. No: Tenderness Edema: No Additional Findings/Remarks: Review of Systems Constitutional: denies: chills, fever Cardiovascular: As noted above Respiratory: reports: cough and sputum production Gastrointestinal: denies: nausea, vomiting, diarrhea, constipation or abdominal pain Genitourinary: No symptoms reported Musculoskeletal: No symptoms reported Labs: CBC, BMP 08/01/16 06:00 08/02/16 05:35 Problem List - Problems (1) Acute on chronic respiratory failure with hypoxia and hypercapnia Code(s): J96.21 - ACUTE AND CHRONIC RESPIRATORY FAILURE WITH HYPOXIA J96.22 - ACUTE AND CHRONIC RESPIRATORY FAILURE WITH HYPERCAPNIA (2) CHF (congestive heart failure) Code(s): I50.9 - HEART FAILURE, UNSPECIFIED Qualifiers: Congestive heart failure type: diastolic Congestive heart failure chronicity: acute on chronic Qualified Code(s): I50.33 - Acute on chronic diastolic (congestive) heart failure (3) Paroxysmal atrial fibrillation Code(s): I48.0 - PAROXYSMAL ATRIAL FIBRILLATION (4) COPD (chronic obstructive pulmonary disease) Code(s): J44.9 - CHRONIC OBSTRUCTIVE PULMONARY DISEASE, UNSPECIFIED Qualifiers : COPD type: emphysema Emphysema type: centrilobular Qualified Code(s): J43.2 - Centrilobular emphysema (5) Coronary artery disease Code(s): I25.10 - ATHSCL HEART DISEASE OF [place] CORONARY ARTERY W/O ANG PCTRS Qualifiers: Coronary Disease-Associated Artery/Lesion type: [place] artery [place] vs. 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 insulin use: without long term care pharmacist use Qualified Code(s): E11.9 - Type 2 diabetes mellitus without complications (7) Diastolic dysfunction with chronic heart failure Code(s): I50.32 - CHRONIC DIASTOLIC (CONGESTIVE) HEART FAILURE (8) HTN (hypertension) Code(s): I10 - ESSENTIAL (PRIMARY) HYPERTENSION Qualifiers: Hypertension type: essential hypertension Qualified Code(s): I10 - Essential (primary) hypertension (9) Hyperlipidemia Code(s): E78.5 - HYPERLIPIDEMIA, UNSPECIFIED Qualifiers: Hyperlipidemia type: mixed hyperlipidemia Qualified Code(s): E78.2 - Mixed hyperlipidemia (10) Hyperthyroidism, subclinical Code(s): E05.90 - THYROTOXICOSIS, UNSP WITHOUT THYROTOXIC CRISIS OR STORM Assessment/Plan 1. Hypercapeniec respiratory failure related to COPD/emphysema exacerbation 2. 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 Paroxysmal atrial fibrillation currently in sinus rhythm [id number] score of 7 on NOAC 4. HTN 5. NIDDM 6. Hyperlipidemia 7. Parkinson's disease 8. Hyperthyroidism 9. Anemia 10. History of gastritis - gastric AVM post cautery PLAN: 1. Continue Sotalol 80 mg BID with close monitoring of QTc interval. No additional intervention is needed at this time 2. Continue Diovan 80 mg QD 3. Continue Lasix 20 mg QD 4. Continue Continue Eliquis 2.5 mg BID 5. Continue Lovaza 2 g BID and Lipitor 10 mg QHS 6. Bronchodilators, Daliresp, O2 and BIPAP as needed with steroid taper 7. Continue Tapazole 8. GI prophylaxis Discharge planning Ronn Grimes MD
--- NOTE | 2016-08-03 13:34 | PN ---
Progress Note (short form) - Note Progress Note: PULMONARY States breathing better. Still some cough and wheezing. Last Vital Signs Temp Pulse Resp BP Pulse Ox 98.4 F 86 20 104/55 94 L 08/03/16 08:40 08/03/16 11:12 08/03/16 08:40 08/03/16 08:40 08/03/16 11:12 Gen: NAD in chair Heart: RRR Lung: scattered rhonchi, wheezes Abd: soft, nontender Ext: no edema CBC, BMP 08/01/16 06:00 08/02/16 05:35 Active Medications Albuterol/Ipratropium (Duoneb -) 1 amp NEB Q4H PRN PRN Reason: SHORTNESS OF BREATH Last Admin: 08/02/16 17:25 Dose: 1 amp Apixaban (Eliquis -) 2.5 mg PO BID [facility] Last Admin: 08/03/16 10:32 Dose: 2.5 mg Arformoterol Tartrate (Brovana (Restricted To Pulmonology/Resp) -) 1 amp NEB BID [facility] Last Admin: 08/03/16 11:13 Dose: 1 amp Atorvastatin Calcium (Lipitor -) 10 mg PO HS [facility] Last Admin: 08/02/16 21:22 Dose: 10 mg Calcium Carbonate (Os-Moncho 500mg -) 500 mg PO BID [facility] Last Admin: 08/03/16 10:32 Dose: 500 mg Escitalopram Oxalate (Lexapro -) 10 mg PO BID [facility] Last Admin: 08/03/16 10:32 Dose: 10 mg Ferrous Sulfate (Feosol -) 325 mg PO BIDWM [facility] Last Admin: 08/03/16 10:32 Dose: 325 mg Furosemide (Lasix -) 20 mg PO DAILY [facility] Last Admin: 08/03/16 10:32 Dose: 20 mg Insulin Aspart (Novolog Vial Sliding Scale -) 1 vial SQ ACHS [facility] PRN Reason: Protocol Last Admin: 08/03/16 12:50 Dose: 2 unit Metformin HCl (Glucophage -) 500 mg PO DAILY@0700 [facility] Last Admin: 08/03/16 06:30 Dose: 500 mg Methimazole (Tapazole -) 15 mg PO Q8H [facility] Last Admin: 08/03/16 10:41 Dose: 15 mg Methylprednisolone Sodium Succinate (Solu-Medrol -) 40 mg IVPB BID [facility] Last Admin: 08/03/16 10:32 Dose: 40 mg Non-Formulary Medication (Benzonatate) 200 mg PO BID [facility] Last Admin: 08/03/16 10:34 Dose: 200 mg Nortriptyline HCl (Pamelor -) 30 mg PO HS [facility] Last Admin: 08/02/16 21:25 Dose: 30 mg [id number] Ethyl Esters (Lovaza -) 2 gm PO BID [facility] Last Admin: 08/03/16 10:33 Dose: 2 gm Pantoprazole Sodium (Protonix -) 40 mg PO DAILY [facility] Last Admin: 08/03/16 10:32 Dose: 40 mg Pramipexole Dihydrochloride (Mirapex -) 0.5 mg PO HS [facility] Last Admin: 08/02/16 21:24 Dose: 0.5 mg Pregabalin (Lyrica -) 75 mg PO BID [facility] Last Admin: 08/03/16 10:32 Dose: 75 mg Roflumilast (Daliresp -) 500 mcg PO DAILY [facility] Last Admin: 08/03/16 10:36 Dose: 500 mcg Sotalol HCl (Betapace -) 80 mg PO BID [facility] Last Admin: 08/03/16 10:34 Dose: Not Given Sucralfate (Carafate -) 1 gm PO BID [facility] Last Admin: 08/03/16 10:35 Dose: 1 gm Tiotropium [place] (Spiriva -) 1 puff IH DAILY [facility] Last Admin: 08/03/16 10:44 Dose: 1 inh Valsartan (Diovan -) 80 mg PO DAILY [facility] Last Admin: 08/03/16 10:32 Dose: 80 mg A/P Acute on Chronic Hypoxic and Hypercapneic Respiratory Failure improving Acute COPD Exacerbation Atrial Fibrillation CHF Parkinsons - medrol taper, can likely change steroids to PO in AM - inhaled bronchodilators - O2 to keep SpO2 >90% - BiPAP at night and PRN during daytime - DVT prophylaxis
--- NOTE | 2016-08-03 14:22 | DS ---
Physical Exam: SUBJECTIVE: Patient seen and examined at bedside. A-fib with RVR noted at 6am in the morning , quickly converted back to NSR before sodalol was given. Patient reported minimal palpitations but no other acute symptoms noted. When see, she's comfortably sleeping in bed and reported "everything is fine". Denied fever, chills, chest pain, abd pain, n/v, bowel or urinary sx. OBJECTIVE: Vital Signs Period Temp Pulse Resp BP Sys/Pinedo Pulse Ox Last 24 Hr 97.1 F-98.4 F 67-98 18-20 104-130/54-73 92-95 PHYSICAL EXAM GENERAL: The patient is awake, alert, oriented to time and person, on 3L NC. NECK: no JVD LUNGS: CTAB, slightl wheezing, without accessory muscle use. HEART: RRR, S1, S2 without murmur, rub or gallop. ABDOMEN: Soft, nontender, nondistended, normoactive bowel sounds, no guarding, no rebound, no hepatosplenomegaly, no masses. EXTREMITIES: no edema. LABS Laboratory Results - last 24 hr 08/01/16 08/02/16 08/02/16 06:00 17:32 21:02 Hct 38.3 POC Glucometer 271 369 Troponin I Folate 1580 Folate Hemolysate 605.0 08/03/16 08/03/16 08/03/16 05:54 06:45 12:24 Hct POC Glucometer 224 190 Troponin I 0.02 Folate Folate Hemolysate HOSPITAL COURSE: Date of Admission:07/31/16 The patient is an 85 year old female with a past medical history of CAD, paroxysmal A.Fib., NIDDM, COPD, HTN, HLD, GERD, gastric AVM malformation, Parkinsonism, anemia and left ventricular diastolic disfunction is complaining of SOB that started after she was discharged from the hospital 07/25/16. On admission, she appeared lethargic and was in mild respiratory distress. Physical exam showed poor air entry, bilateral rales with accessory muscle use. However, CXR was unremarkable and rest of her labs were at baselines. Patient was treated for acute respiratory distress secondary to mixed exacerbations of CHF and COPD. One dose of lasix was given and stat serial ABGs showed respiratory acidosis. She's placed on BiPAP and started on steroid, mucomyst, duoned PRN and standing, while all her home meds were resumed except PO steroid. During hospitalization, she demonstrated goodwin recovery everyday on IV steroid taper plus inhaled bronchodilators. Her a-fib has been well controlled on sodalol. There's afib with RVR noted on 08/03 6am but quickly converted back to NSR. This transient event is common for patients with afib. She's now in stable condition to be discharged to shelter. She will start taking lantus 5 units HS and continue slow predisone taper at nursing facility. Note well: patient must be re-evaluated by her associate professor of geology after completing steroid taper to decided the optimal detention systemic steroid dose. Date of Discharge: 08/03/16 Minutes to complete discharge: 45 Discharge Summary Reason For Visit: CHF Current Active Problems Acute on chronic respiratory failure with hypoxia and hypercapnia (Acute) CHF exacerbation (Acute) CHF (congestive heart failure) (Chronic) Paroxysmal atrial fibrillation (Chronic) Condition: Improved - Instructions Diet, Activity, Other Instructions: Instruction for continuing care: You were admitted to the hospital because your had COPD flare up and heart failure, which caused difficulty in breathing. During hospitalization, you were treated with steroids, breathing medicine and breathing machine. You recovered well; your breathing has improved and wheezing is nearly gone now. Your heart rhythm and rate have been stable, although you had a couple episodes of fast heart rate this morning but it's expected from time to time. You now have a new medication for your blood sugar, it's called "Lantus", you take 5 units before you sleep. After you are discharged, you need to take oral steroids as instructed and follow up with the lung doctor after you finish your steroid course. Please also see your heart doctor as soon as possible to re-assess your heart. Referrals: Jd Gaona MD [Staff Physician] - 1 Week Bernie Sahrif MD [Staff Physician] - 1 Week Ysabel Wagner MD [Primary Care Provider] - 1 Week Sis Hutchinson MD [Staff Physician] - 1 Week Disposition: INTERMEDIATE FACILITY - Home Medications Comprehensive Discharge Medication List: Ambulatory Orders Tiotropium [place] [Spiriva] 1 inh PO BID 07/19/14 Roflumilast [Daliresp -] 500 mcg PO DAILY #30 tablet 07/21/14 Metformin HCl 500 mg PO DAILY 05/09/15 Pregabalin [Lyrica -] 75 mg PO BID 05/09/15 Albuterol 0.083% Nebulizer Lisa [Ventolin 0.083% Nebulizer Soln -] 1 neb NEB BID 12/01/15 Aspirin [ASA -] 81 mg PO DAILY 04/18/16 Calcium Carbonate [Calcium] 500 mg PO BID 04/18/16 Escitalopram Oxalate [Lexapro -] 10 mg PO BID 04/18/16 Pantoprazole Sodium [Protonix] 40 mg PO DAILY 04/18/16 Pramipexole Di-HCl [Mirapex] 0.5 mg PO HS 04/18/16 Sucralfate [Carafate] 1 gm PO BID 04/18/16 [place]-3 Acid Ethyl Esters [Lovaza -] 2 gm PO BID cap 04/21/16 Benzonatate [Tessalon [place] -] 200 mg PO BID 05/04/16 Levalbuterol Tartrate [Xopenex Hfa] 15 gm IH DAILY PRN 05/04/16 Nortriptyline HCl [Pamelor -] 30 mg PO HS 05/04/16 Salmeterol/Fluticasone [Advair 100Mcg/50Mcg -] 1 inh PO BID 07/13/16 Atorvastatin Ca [Lipitor] 10 mg PO HS #30 tablet 07/16/16 Ferrous Sulfate [Feosol] 325 mg PO BIDWM #120 ud 07/16/16 Apixaban [Eliquis -] 2.5 mg PO BID #60 tablet 07/26/16 Methimazole [Tapazole -] 15 mg PO TID #90 tablet 07/26/16 Sotalol HCl [Betapace -] 80 mg PO BID #60 tablet 07/26/16 Insulin Glargine,Hum.rec.anlog [Lantus (nf)] 5 units SQ HS #1 vial 08/03/16 Insulin Sliding Scale [Novolog Vial Sliding Scale -] 1 vial SQ ACHS #30 units Prednisone See Taper PO BID #60 tablet 08/03/16 This patient is new to me today: No Emergency Visit: No Critical Care patient: No - Discharge Referral Referred to [facility] No
== END 2016-08-03 15:00 | DRG 189 ==
LOC: JER 18:40 → JERBED 23:45 → UNDOADMOB 23:59 → J4S 07-29 14:52 → OBSVTOIN 07-31 15:07
PROVIDERS: ADMIT Internal Medicine; ATTEND Internal Medicine
PROC: 5A09457 Assistance with Respiratory Ventilation, 24-96 Consecutive Hours, Continuous Positive Airway Pressure (ICD-10-PCS; principal; 2016-07-29)
DX: J96.22 Acute and chronic respiratory failure with hypercapnia (principal); I50.33 Acute on chronic diastolic (congestive) heart failure; J44.1 Chronic obstructive pulmonary disease with (acute) exacerbation; B02.29 Other postherpetic nervous system involvement; I11.0 Hypertensive heart disease with heart failure; J96.21 Acute and chronic respiratory failure with hypoxia; D64.9 Anemia, unspecified; K21.9 Gastro-esophageal reflux disease without esophagitis; Z87.11 Personal history of peptic ulcer disease; Z87.891 Personal history of nicotine dependence; Z99.81 Dependence on supplemental oxygen; I48.0 Paroxysmal atrial fibrillation; Z79.01 Long term (current) use of anticoagulants; E05.90 Thyrotoxicosis, unspecified without thyrotoxic crisis or storm; G20 Parkinson's disease; Q27.33 Arteriovenous malformation of digestive system vessel; I49.3 Ventricular premature depolarization; I25.119 Atherosclerotic heart disease of native coronary artery with unspecified angina pectoris; E11.65 Type 2 diabetes mellitus with hyperglycemia
CPT/HCPCS: 36415; 36600; 71020-TC; 80048; 80053; 80061; 82550; 82607; 82728; 82747; 82803; 83540; 83550; 83721; 83880; 84439; 84443; 84484; 85014; 85025; 85027; 93005; 93010; 93970-TC; 94640; 94660; 94761; 99284-25; G0378

== ENCOUNTER 2016-08-09 08:54 | Inpatient (IN) | payer OTHER ==
[2016-08-09] MEDS ORDERED: dilTIAZem HCL 125 MG/25 ML - 25 ML VIAL ONE ×2 (08:59→09:34)
[2016-08-09] MEDS ORDERED: FUROSEMIDE 40 MG/4 ML INJECTABLE VIAL ONE (08:59)
[2016-08-09] MEDS ORDERED: FUROSEMIDE 40 MG/4 ML INJECTABLE VIAL IVPUSH ONE (09:14)
[2016-08-09] MEDS ORDERED: dilTIAZem HCL 50 MG/10 ML - 10 ML VIAL IVPUSH ONE (09:14)
[2016-08-09] MEDS ORDERED: DILTIAZEM INJECTION 125 MG in DEXTROSE 5%-WATER - 100 ML IVPB SCH ×2 (09:30→13:04)
[2016-08-09] MEDS ORDERED: dilTIAZem HCL 50 MG/10 ML - 10 ML VIAL ONE (09:34)
[2016-08-09] MEDS ORDERED: CEFTRIAXONE 1 GM in DEXTROSE 5%-WATER - 50 ML IVPB ONE (09:41)
[2016-08-09] MEDS ORDERED: ACETAMINOPHEN 1000 MG/100 ML VIAL (NON FORMULARY) IVPB ONE (09:41)
[2016-08-09] MEDS ORDERED: VANCOMYCIN 1,000 MG in DEXTROSE 5%-WATER - 250 ML IVPB ONE (09:41)
[2016-08-09] MEDS ORDERED: ACETAMINOPHEN 650 MG SUPP.RECT ONE (09:43)
[2016-08-09] MEDS ORDERED: VANCOMYCIN 1 GRAM (PRE-DOCKED) 250 ML IVPB ONE (09:53)
[2016-08-09] MEDS ORDERED: CEFTRIAXONE 50 ML ONE (09:53)
[2016-08-09 09:54] LABS: ALLENS TEST POSITIVE; ART PUNCT SITE LEFT RADIAL; ARTERIAL BLD GAS O2 SATURATION 92.1 % (90-98.9); ARTERIAL BLOOD GAS BASE EXCESS 8.3 meq/l (-2-2); ARTERIAL BLOOD GAS HCO3 33.8 meq/L (22-26); ARTERIAL BLOOD GAS PO2 66.2 mmHg (68-100); ARTERIAL BLOOD GAS pH 7.42 (7.35-7.45); LPM/O2% 60%; MECH. VENT. BIPAP; METHEMOGLOBIN 1.5 % (0.4-1.5); PT. ON O2? YES; TYPE OF O2 BIPAP
[2016-08-09 09:55] LABS: VENT RATE 14
--- NOTE | 2016-08-09 10:00 | PDOC ---
History of Present Illness - General History Source: Patient, Family, Old Records - History of Present Illness Initial Comments: 08/09/16 10:04 The patient is an 86-year-old woman, accompanied by daughter, from [facility] with a significant past medical history of hypertension, hypercholesterolemia, coronary artery disease, atrial fibrillation, anemia, chronic obstructive pulmonary disease (home O2 dependent; typically on 2L; recently upgraded to 3L), congestive heart failure, diabetes mellitus, peptic ulcer disease and gastroesophageal reflux disease who presents to the emergency department via EMS in respiratory distress. As per EMS, the patient was found to be in respiratory distress, sating in the 80s on room air and in rapid atrial fibrillation. EMS was activated. On arrival, patient is minimally responsive secondary to respiratory distress, but alert and sitting up, initially placed on non-rebreather with noted oxygen saturation of 90, RR of 33 and HR of 180. Respiratory arrived at 08:53 AM and was ultimately placed on BiPAP with noted improvement of her oxygen saturation to 99%. Patient was also administered 10 mg of Cardizem and 40 mg of Lasix. Allergies: None Known Past Surgical History: Left femur fracture surgery. Right elbow fracture surgery. Social History: Former cigarette smoker. No ETOH or recreational drug use. Primary Care Physician: Dr. Ysabel Aguirre [phone] Boat Oar Maker: Dr. Bernie Sharif [phone] <Leilani Castano - Last Filed: 08/09/16 11:49> <Elias Ramirez - Last Filed: 08/09/16 11:54> - General Chief Complaint: Shortness of Breath Stated Complaint: RESPIRATORY DISTRESS Time Seen by Provider: 08/09/16 09:13 Past History <Leilani Castano - Last Filed: 08/09/16 11:49> - Past Medical History Anemia: Yes Asthma: No Cancer: No Cardiac Disorders: Yes (ARRHYTHMIA) CVA: No COPD: Yes (PT USES O2 AT HOME) CHF: No Dementia: No Diabetes: Yes GI Disorders: Yes (GERD/R/O GI BLD) Disorders: No HTN: Yes Hypercholesterolemia: No Liver Disease: No Seizures: No Thyroid Disease: No - Surgical History Abdominal Surgery: No Appendectomy: No Cardiac Surgery: No Cholecystectomy: No Lung Surgery: No Neurologic Surgery: No Orthopedic Surgery: Yes (FX LEFT FEMUR WITH PINNING/RIGHT ELBOW FX ) - Immunization History Immunization Up to Date: Yes - Psycho/Social/Smoking Cessation Hx Anxiety: No Suicidal Ideation: No Smoking History: Never smoked Have you smoked in the past 12 months: No If you are a former smoker, when did you quit?: 15 YRS Information on smoking cessation initiated: No Hx Alcohol Use: No Drug/Substance Use Hx: No Substance Use Type: None Hx Substance Use Treatment: No <Elias Ramirez - Last Filed: 08/09/16 11:54> - Past Medical History Allergies/Adverse Reactions: Allergies Allergy/AdvReac Type Severity Reaction Status Date / Time No Known Allergies Allergy Verified 07/28/16 18:41 Home Medications: Ambulatory Orders Tiotropium [place] [Spiriva] 1 inh PO BID 07/19/14 Roflumilast [Daliresp -] 500 mcg PO DAILY #30 tablet 07/21/14 Metformin HCl 500 mg PO DAILY 05/09/15 Pregabalin [Lyrica -] 75 mg PO BID 05/09/15 Albuterol 0.083% Nebulizer Lisa [Ventolin 0.083% Nebulizer Soln -] 1 neb NEB BID 12/01/15 Aspirin [ASA -] 81 mg PO DAILY 04/18/16 Calcium Carbonate [Calcium] 500 mg PO BID 04/18/16 Escitalopram Oxalate [Lexapro -] 10 mg PO BID 04/18/16 Pantoprazole Sodium [Protonix] 40 mg PO DAILY 04/18/16 Pramipexole Di-HCl [Mirapex] 0.5 mg PO HS 04/18/16 Sucralfate [Carafate] 1 gm PO BID 04/18/16 [place]-3 Acid Ethyl Esters [Lovaza -] 2 gm PO BID cap 04/21/16 Benzonatate [Tessalon Perle -] 200 mg PO BID 05/04/16 Levalbuterol Tartrate [Xopenex Hfa] 15 gm IH DAILY PRN 05/04/16 Nortriptyline HCl [Pamelor -] 30 mg PO HS 05/04/16 Salmeterol/Fluticasone [Advair 100Mcg/50Mcg -] 1 inh PO BID 07/13/16 Atorvastatin Ca [Lipitor] 10 mg PO HS #30 tablet 07/16/16 Ferrous Sulfate [Feosol] 325 mg PO BIDWM #120 ud 07/16/16 Apixaban [Eliquis -] 2.5 mg PO BID #60 tablet 07/26/16 Methimazole [Tapazole -] 15 mg PO TID #90 tablet 07/26/16 Sotalol HCl [Betapace -] 80 mg PO BID #60 tablet 07/26/16 Insulin Glargine,Hum.rec.anlog [Lantus (nf)] 5 units SQ HS #1 vial 08/03/16 Insulin Sliding Scale [Novolog Vial Sliding Scale -] 1 vial SQ ACHS #30 units Prednisone See Taper PO BID #60 tablet 08/03/16 Methimazole [Tapazole] 10 mg PO TID 08/09/16 Nortriptyline HCl [Pamelor -] 10 mg PO HS 08/09/16 Pramipexole Di-HCl [Mirapex] 0.5 mg PO HS 08/09/16 Pregabalin [Lyrica] 75 mg PO DAILY 08/09/16 Review of Systems - Review of Systems Able to Perform ROS?: No (resp distress) <Elias Ramirez - Last Filed: 08/09/16 11:54> *Physical Exam - Vital Signs Last Vital Signs Temp Pulse Resp BP Pulse Ox 102.1 F H 166 H 20 148/72 96 08/09/16 09:59 08/09/16 10:02 08/09/16 09:07 08/09/16 10:02 08/09/16 09:16 - Physical Exam Comments: 08/09/16 10:04 GENERAL: The patient is awake, minimally verbal secondary to respiratory distress- on BiPAP. Sitting up. HEAD: Normal with no signs of trauma. EYES: Pupils equal, round and reactive to light, extraocular movements intact, sclera anicteric, conjunctiva clear with no pallor. ENT: Ears normal, nares patent, oropharynx clear without exudates. NECK:+JVD. Normal range of motion, supple without lymphadenopathy or masses. LUNGS: Tachypneic. Bilateral crackles to the mid lung cobos. HEART: Irregularly, irregular tachycardia without murmur or rub. ABDOMEN: Soft/nontender/nondistended. BS wnl. No guarding or rebound. No palpable masses. No hepatosplenomegaly. EXTREMITIES: Normal range of motion. There is 1+ pitting edema to the bilateral lower extremities. No clubbing or cyanosis. No cords, erythema, or tenderness. NEUROLOGICAL: Cranial nerves II through XII grossly intact. PSYCH: Normal mood, normal affect. SKIN: Warm, Dry, normal turgor, no rashes or lesions noted. <Leilani Castano - Last Filed: 08/09/16 11:49> - Vital Signs Last Vital Signs Temp Pulse Resp BP Pulse Ox 160 H 20 117/82 96 08/09/16 09:16 08/09/16 09:07 08/09/16 09:07 08/09/16 09:16 <Elias Ramirez - Last Filed: 08/09/16 11:54> Heart Score/ECG Review #1 ECG reviewed & interpreted by me at: 09:03 Compared to previous ECG there are: No significant change (08/08) 08/09/16 09:55 Narrow complex rapid atrial fibrillation at 187, likely rate/demand related ST depressions in the lateral leads. #2 ECG reviewed & interpreted by me at: 11:48 08/09/16 11:54 Sinus tachycardia with PVCs at 107, intervals otherwise normal, no acute ST or T wave changes. <Elias Ramirez - Last Filed: 08/09/16 11:54> ED Treatment Course - LABORATORY CBC & Chemistry Diagram: 08/09/16 09:30 08/09/16 09:30 - ADDITIONAL ORDERS Additional order review: Laboratory Results 08/09/16 09:40 Puncture Site Left radial ABG pH 7.42 ABG pCO2 at Pt Temp 53.1 H D ABG pO2 at Pt Temp 66.2 L ABG HCO3 33.8 H ABG O2 Sat (Measured) 92.1 ABG O2 Content 13.9 L ABG Base Excess 8.3 H Torito Test Positive Carboxyhemoglobin 1.8 Methemoglobin 1.5 O2 Delivery Device Bipap Oxygen Flow Rate 60% Vent Mode S/t Vent Rate 14 Mechanical Rate Bipap PEEP 0.0 Pressure Support Vent 06/26 - RADIOLOGY Radiograph Interpretation: 08/09/16 10:05 EXAM: RAD/CHEST X-RAY PORTABLE IMPRESSION: Since 07/28/2016, there is slight increase atelectatic changes/ airspace disease in left lower lung base since the prior examination. Bilateral increased interstitial markings are again seen. Mild-to- moderate cardiomegaly. - Medications Given in the ED: ED Medications Discontinued Medications Generic Name Dose Route Start Last Admin Trade Name Loli PRN Reason Stop Dose Admin Acetaminophen 1,000 mg 08/09/16 09:41 08/09/16 10:02 Ofirmev Injection - IVPB 08/09/16 09:42 1,000 mg ONCE ONE Administration Diltiazem HCl 20 mg 08/09/16 09:14 08/09/16 10:01 Cardizem Injection - IVPUSH 08/09/16 09:15 20 mg ONCE ONE Administration Furosemide 40 mg 08/09/16 09:14 08/09/16 10:01 Lasix Injection - IVPUSH 08/09/16 09:15 40 mg ONCE ONE Administration <Leilani Castano - Last Filed: 08/09/16 11:49> - LABORATORY CBC & Chemistry Diagram: 08/09/16 09:30 08/09/16 09:30 - RADIOLOGY Radiology Studies Ordered: Category Date Time Status CHEST X-RAY PORTABLE* [RAD] Stat Radiology 08/09/16 09:13 Completed <Elias Ramirez - Last Filed: 08/09/16 11:54> Medical Decision Making - Critical Care Time Total Critical Care Time (minutes): 88 Critical Care Statement: The care of this patient involved high complexity decision making to prevent further life threatening deterioration of the patient 's condition and/or to evalute & treat vital organ system(s) failure or risk of failure. - Medical Decision Making 08/09/16 09:56 A portion of this note was documented by scribe services under my direction. I have reviewed the details of the note, within reason, and agree with the documentation with the following case summary and management plan written by me. 86-year-old female with history of atrial fibrillation, CAD with CHF, interstitial lung disease on home oxygen, several recent admissions most recently discharged to [facility] a few days ago, now returns with respiratory distress. Found to be in rapid atrial fibrillation by EMS, placed on nonrebreather and brought to ED. Febrile 102 rectally Rapid atrial fibrillation to the 180s Tachypneic with O2 sat in the 80s on nonrebreather Otherwise alert and following commands and sitting up 86-year-old female presents acutely from [facility] with fever, rapid atrial fibrillation, and acute pulmonary edema/CHF exacerbation. Concern for sepsis plus or minus primary cardiac pathology or respiratory process. Patient seen immediately upon arrival IV access obtained, placed on monitor, BiPAP initiated Her respiratory status improved on BiPAP She was given 10 mg Cardizem intravenously 2 with improvement in her heart rate , then started on a Cardizem drip, tolerated well in terms of blood pressure. Lasix 40 mg IV given for the acute pulmonary edema Tylenol given for the fever/sepsis, will start broad-spectrum antibiotics given recent hospitalization/[facility] with vancomycin and ceftriaxone Will require admission, possible ICU 08/09/16 11:00 Clinically and symptomatically improved on Cardizem drip, BiPAP, received Tylenol and is receiving antibiotics. Workup reveals leukocytosis of 21.8, possible new infiltrate on chest x-ray, 10 white blood cells on urinalysis. Antibiotic coverage expanded with azithromycin given the pulmonary findings. Lactate 1.5. Troponin negative. Will admit to ICU, door opener consulted. Accepted for inpatient admission by Dr. Kaur. <Elias Ramirez - Last Filed: 08/09/16 11:54> *DC/Admit/Observation/Transfer <Leilani Castano - Last Filed: 08/09/16 11:49> - Discharge Dispostion Admit: Yes <Elias Ramirez - Last Filed: 08/09/16 11:54> Diagnosis at time of Disposition: Atrial fibrillation with rapid ventricular response CHF exacerbation Qualifiers: Congestive heart failure type: diastolic Qualified Code(s): I50.33 - Acute on chronic diastolic (congestive) heart failure Sepsis Qualifiers: Sepsis type: sepsis due to unspecified organism Qualified Code(s): A41.9 - Sepsis, unspecified organism - Discharge Dispostion Condition at time of disposition: Guarded - Referrals
[2016-08-09 10:09] LABS: URINE APPEARANCE SLCLOUDY; URINE BILIRUBIN NEGATIVE (NEGATIVE); URINE COLOR YELLOW; URINE GLUCOSE (UA) NEGATIVE (NEGATIVE); URINE KETONE TRACE (NEGATIVE); URINE NITRITE NEGATIVE (NEGATIVE); URINE UROBILINOGEN NEGATIVE E.U./dl (0.2-1.0)
[2016-08-09] MEDS ORDERED: AZITHROMYCIN IVPB 500 MG in DEXTROSE 5%-WATER - 250 ML IVPB ONE (10:10)
[2016-08-09 10:11] LABS: ALBUMIN 2.4 g/dl (3.4-5.0); ANION GAP 9 (8-16); CALCIUM 9.2 mg/dL (8.5-10.1); CO2 33 mmol/L (21-32); GLUCOSE,RANDOM 165 mg/dL (74-106); INR 1.17 (0.82-1.09); PROTHROMBIN TIME (PATIENT) 12.9 SEC (9.98-11.88)
[2016-08-09 10:13] LABS: ACTIVATED PTT 21.8 SECONDS (26.9-34.4)
[2016-08-09 10:13] LABS: URINE BLOOD 3+ (NEGATIVE); URINE LEUK ESTERASE TRACE (NEGATIVE); URINE PROTEIN 1+ (NEGATIVE)
[2016-08-09] MEDS ORDERED: AZITHROMYCIN IVPB 250 ML IVPB ONE (10:14)
[2016-08-09 10:19] LABS: ALK PHOS 79 U/L (45-117); BILIRUBIN,TOTAL 0.6 mg/dL (0.2-1.0); CREATININE 0.5 mg/dL (0.55-1.02); SGOT/AST 16 U/L (15-37); SGPT/ALT 27 U/L (12-78); TOT PROT 5.9 g/dl (6.4-8.2); TROPONIN I 0.03 ng/ml (0.00-0.05)
[2016-08-09 10:22] LABS: MCH 20.9 pg (25.7-33.7); MCHC 29.1 g/dl (32.0-36.0); MEAN CELL VOLUME 71.8 fl (80-96); MEAN PLT VOLUME 9.1 fl (7.5-11.1); PLATELET COUNT 210 K/MM3 (134-434); RDW 27.5 % (11.6-15.6); WHITE BLOOD COUNT 21.8 K/mm3 (4.0-10.0)
[2016-08-09 10:23] LABS: URINE BACTERIA RARE /hpf (NONE SEEN); URINE HYALINE CAST 2 /lpf; URINE MUCUS FEW; URINE RBC 579 /hpf (0-3); URINE WBC 10 /hpf (3-5)
[2016-08-09 11:18] LABS: ANISOCYTOSIS 1+; BURR CELLS 1+; HELMET CELLS RARE; HYPOCHROMIA 3+; MICROCYTOSIS 1+; POIKILOCYTOSIS 3+; TARGET CELLS 2+; TEAR DROP CELLS FEW
--- NOTE | 2016-08-09 11:56 | EKG ---
Test Reason : Blood Pressure : / mmHG Vent. Rate : 107 BPM Atrial Rate : 107 BPM P-R Int : 120 ms QRS Dur : 074 ms QT Int : 308 ms P-R-T Axes : 050 -17 071 degrees QTc Int : 411 ms SINUS TACHYCARDIA WITH PREMATURE ATRIAL COMPLEXES NONSPECIFIC ST ABNORMALITY ABNORMAL ECG WHEN COMPARED WITH ECG OF 09-AUG-2016 09:03, SINUS RHYTHM HAS REPLACED ATRIAL FIBRILLATION VENT. RATE HAS DECREASED BY 80 BPM T WAVE INVERSION NO LONGER EVIDENT IN LATERAL LEADS Confirmed by DAYDAY MANE MD ([id number]) on 08/09/2016 11:56:12 AM Referred By: Confirmed By:DAYDAY MANE MD
--- NOTE | 2016-08-09 12:22 | HP ---
CHIEF COMPLAINT: Difficulty breathing PCP:Dr. Overton Pulm: Dr. Gaona Cardio: Dr. Sharif HISTORY OF PRESENT ILLNESS: 86 yr woman upper sorbian-speaking, with COPD(not on home o2), asthma, CHF(left vent diastolic dysfunction), CAD, paroxysmal A.Fib., NIDDM, HTN, HLD, GERD, gastric AVM malformation, Parkinsonism, anemia BIBEMS from [facility] for difficulty breathing. Daughter was present at the time and was having the patient care for herself in the bathroom when she started to c/o of shortness of breath and had difficulty breathing. Patient said she had been having cough with yellow phlegm for past few days and trouble breathing since last night. Daughter notes that patient has appeared weaker for past few days, requiring more support to care for herself. Denies fever, chills, vomiting, dysuria, chest pain, headache, difficulty swallowing. She was recently hospitalized (07/28-08/03) and discharged to [facility] for rehab. ER course was notable for: (1) Rapid Afib rate of 180, treated with cardizem drip, improved rate low-mid 100's (2) sepsis protocol (3) Bipap, improved saturation to 90's Recent Travel:none PAST MEDICAL HISTORY: CHF, COPD, HTN Social History: Smoking: former smoker, quit more than 15 yrs ago Alcohol: denies Drugs: denies Family History: noncontributory Allergies No Known Allergies Allergy (Verified 07/28/16 18:41) HOME MEDICATIONS: Medication Instructions Recorded Tiotropium [place] [Spiriva] 1 inh PO BID 07/19/14 Roflumilast [Daliresp -] 500 mcg PO DAILY #30 tablet 07/21/14 Metformin HCl 500 mg PO DAILY 05/09/15 Pregabalin [Lyrica -] 75 mg PO BID 05/09/15 Albuterol 0.083% Nebulizer Lisa 1 neb NEB BID 12/01/15 [Ventolin 0.083% Nebulizer Soln -] Aspirin [ASA -] 81 mg PO DAILY 04/18/16 Calcium Carbonate [Calcium] 500 mg PO BID 04/18/16 Escitalopram Oxalate [Lexapro -] 10 mg PO BID 04/18/16 Pantoprazole Sodium [Protonix] 40 mg PO DAILY 04/18/16 Pramipexole Di-HCl [Mirapex] 0.5 mg PO HS 04/18/16 Sucralfate [Carafate] 1 gm PO BID 04/18/16 [place]-3 Acid Ethyl Esters [Lovaza 2 gm PO BID cap 04/21/16 -] Benzonatate [Tessalon Perle -] 200 mg PO BID 05/04/16 Levalbuterol Tartrate [Xopenex Hfa] 15 gm IH DAILY PRN 05/04/16 Nortriptyline HCl [Pamelor -] 30 mg PO HS 05/04/16 Salmeterol/Fluticasone [Advair 1 inh PO BID 07/13/16 100Mcg/50Mcg -] Atorvastatin Ca [Lipitor] 10 mg PO HS #30 tablet 07/16/16 Ferrous Sulfate [Feosol] 325 mg PO BIDWM #120 ud 07/16/16 Apixaban [Eliquis -] 2.5 mg PO BID #60 tablet 07/26/16 Methimazole [Tapazole -] 15 mg PO TID #90 tablet 07/26/16 Sotalol HCl [Betapace -] 80 mg PO BID #60 tablet 07/26/16 Insulin Glargine,Hum.rec.anlog 5 units SQ HS #1 vial 08/03/16 [Lantus (nf)] Insulin Sliding Scale [Novolog 1 vial SQ ACHS #30 units 08/03/16 Vial Sliding Scale -] Prednisone See Taper PO BID #60 tablet 08/03/16 Methimazole [Tapazole] 10 mg PO TID 08/09/16 Nortriptyline HCl [Pamelor -] 10 mg PO HS 08/09/16 Pramipexole Di-HCl [Mirapex] 0.5 mg PO HS 08/09/16 Pregabalin [Lyrica] 75 mg PO DAILY 08/09/16 REVIEW OF SYSTEMS CONSTITUTIONAL: Present: diaphoresis, generalized weakness, Absent: fever, chills, malaise, loss of appetite, weight change HEENT: Absent: rhinorrhea, nasal congestion, throat pain, throat swelling, difficulty swallowing, mouth swelling, ear pain, eye pain, visual changes CARDIOVASCULAR: Present: irregular heart rate, Absent: chest pain, syncope, palpitations, lightheadedness, peripheral edema RESPIRATORY: Present:cough, shortness of breath, dyspnea with exertion Absent: orthopnea, wheezing, stridor, hemoptysis GASTROINTESTINAL: Absent: abdominal pain, abdominal distension, nausea, vomiting, diarrhea, constipation, melena, hematochezia GENITOURINARY: Absent: dysuria, frequency, urgency, hesitancy, hematuria, flank pain, genital pain MUSCULOSKELETAL: Absent: myalgia, arthralgia, joint swelling, back pain, neck pain SKIN: Absent: rash, itching, pallor HEMATOLOGIC/IMMUNOLOGIC: Absent: easy bleeding, easy bruising, lymphadenopathy, frequent infections ENDOCRINE: Absent: unexplained weight gain, unexplained weight loss, heat intolerance, cold intolerance NEUROLOGIC: Absent: headache, focal weakness or paresthesias, dizziness, unsteady gait, seizure, mental status changes, bladder or bowel incontinence PSYCHIATRIC: Absent: anxiety, depression, suicidal or homicidal ideation, hallucinations. PHYSICAL EXAMINATION Vital Signs - 24 hr 08/09/16 08/09/16 11:30 11:59 Temperature 101.0 F H Pulse Rate [ 105 H Left Radial] Respiratory 22 Rate Blood Pressure 121/67 [Right Arm] O2 Sat by Pulse 91 L 90 L Oximetry (%) GENERAL: Awake, alert, and fully oriented, in moderate distress. on bipap, sweating. HEAD: Normal with no signs of trauma. EYES: Pupils equal, round and reactive to light, extraocular movements intact, sclera anicteric, conjunctiva clear. No lid lag. EARS, NOSE, THROAT: Ears normal, nares patent, oropharynx clear without exudates. Moist mucous membranes. NECK: Normal range of motion, supple without lymphadenopathy, JVD, or masses. LUNGS: Breath sounds crackles and rhonchi throughout. HEART: Irregular rate and rhythm;afib, normal S1 and S2 without murmur. ABDOMEN: Soft, nontender, not distended, normoactive bowel sounds, no guarding, no rebound, no masses. No hepatomegaly or splenomegaly. MUSCULOSKELETAL: Normal range of motion at all joints. No bony deformities or tenderness. No CVA tenderness. UPPER EXTREMITIES: 2+ pulses, No cyanosis. No clubbing. No peripheral edema. LOWER EXTREMITIES: faint + pulses, cool, No calf tenderness. No peripheral edema. strength 3/5. NEUROLOGICAL: Normal speech. PSYCHIATRIC: Cooperative. Good eye contact. Appropriate mood and affect. SKIN: cold, sweating, normal turgor, no rashes or lesions noted. Active Medications Albuterol/Ipratropium (Duoneb -) 1 amp NEB TIDR [facility] Last Admin: 08/09/16 14:16 Dose: 1 amp Apixaban (Eliquis -) 5 mg PO BID MICHAEL Atorvastatin Calcium (Lipitor -) 10 mg PO HS MICHAEL Chlorhexidine Gluconate (Hibiclens For Decolonization -) 1 applic TP HS MICHAEL Furosemide (Lasix Injection -) 40 mg IVPB DAILY [facility] Diltiazem HCl 125 mg/ Dextrose 125 mls @ 10 mls/hr IVPB TITR MICHAEL; 10 MG/HR PRN Reason: Protocol Last Titration: 08/09/16 15:45 Dose: 0 mg/hr Methylprednisolone Sodium Succinate (Solu-Medrol -) 40 mg IVPB Q8H-IV [facility] Last Admin: 08/09/16 18:02 Dose: 40 mg Metoprolol Tartrate (Lopressor Injection -) 5 mg IVPUSH Q4H PRN PRN Reason: HYPERTENSION Mupirocin (Bactroban Ointment (For Decolonization) -) 1 applic NS BID [facility] Stop: 08/14/16 21:59 [id number] Ethyl Esters (Lovaza -) 2 gm PO BID MICHAEL Piperacillin Sod/Tazobactam Sod (Zosyn 3.375gm Ivpb (Pre-Docked)) 3.375 gm IVPB Q8H-IV [facility] Last Admin: 08/09/16 18:57 Dose: 3.375 gm Sotalol HCl (Betapace -) 80 mg PO BID MICHAEL Valsartan (Diovan -) 80 mg PO DAILY [facility] ASSESSMENT/PLAN: 86 yr old woman with multiple co-morbidities BIBEMS from [facility] for difficulty breathing, was found to be in rapid Afib in the ED admitted for sepsis likely from pna, rapid Afib, and hypoxia/respiratory distress. #Sepsis - likely from HCAP given recent hospitalization/rehab stay, new infiltrates in Cxy and elevated WBC, UTI - zosyn 3.375 q8 IV - repeat labs in the AM #Afib - improving, will closely monitor - currently on cardizem drip - sotalol 80mg po bid - abixapan 5mg po bid - eliquis 5mg po bid #Respiratory distress/hypoxia - improved with Bipap - duonebs TID prn - solumedrol 40mg IVPB q8 #DM - novolog sliding scale - BGM ACHS #HTN/CHF - metoprolol tart 5mg IVPush q4h prn - diovan 80m g po daily - lasix 40mg IVPB #CAD - atorvastatin 10mg HS po #Hyperthyroidism -methiazole 15mg po TID #Diet: diabetic/low sodium #DVT prophylaxis - on anticoagulation Visit type - Emergency Visit Emergency Visit: Yes ED Registration Date: 08/09/16 Care time: The patient presented to the Emergency Department on the above date and was hospitalized for further evaluation of their emergent condition. - New Patient This patient is new to me today: Yes Date on this admission: 08/09/16 - Critical Care Critical Care patient: Yes Total Critical Care Time (in minutes): 40 Critical Care Statement: The care of this patient involved high complexity decision making to prevent further life threatening deterioration of the patient 's condition and/or to evalute & treat vital organ system(s) failure or risk of failure.
[2016-08-09] MEDS ORDERED: METOPROLOL TARTRATE 5 MG/5 ML VIAL IVPUSH ONE ×2 (12:52→13:04)
--- NOTE | 2016-08-09 12:54 | CONSULT ---
Consult Consult Specialty:: PULMONARY/CCM Referred by:: Dr. Boucher Reason for Consultation:: respiratory failure - History of Present Illness Chief Complaint: shortness of breath History of Present Illness: 86yo female with h/o HTN, DM, hypercholesterolemia, atrial fibrillation, CAD, COPD, chronic hypoxic respiratory failure on home O2, diastolic heart failure, GERD, recently admitted for COPD and CHF exacerbation discharged 3 days ago to [facility] who presents with worsening shortness of breath since last night. Daughter at bedside states that pt was in her usual state of health at 4PM when she left the [facility]. No complaints at the time. Upon arrival to the ER, she was lethargic, tachypneic and hypoxic and in rapid afib with VR 180s. started on cardizem gtt and placed on BiPAP, given lasix. Febrile to 102. Pt unable to provide further history due to her clinical condition. - History Source History Provided By: Patient, Family Member, Medical Record Limitations to Obtaining History: Clinical Condition - Past Medical History [employer]: Yes: Parkinson's Cardio/Vascular: Yes: AFIB (?? HISTORY), CAD, HTN, Hyperlipdemia Pulmonary: Yes: COPD Gastrointestinal: Yes: GERD Musculoskeletal: Yes: Osteoarthritis Endocrine: Yes: Diabetes Mellitus - Alcohol/Substance Use Hx Alcohol Use: No - Smoking History Smoking history: Never smoked Have you smoked in the past 12 months: No If you are a former smoker, when did you quit?: 15 YRS - Social History History of Recent Travel: No Home Medications - Allergies Allergies/Adverse Reactions: Allergies Allergy/AdvReac Type Severity Reaction Status Date / Time No Known Allergies Allergy Verified 07/28/16 18:41 - Home Medications Home Medications: Ambulatory Orders Tiotropium [place] [Spiriva] 1 inh PO BID 07/19/14 Roflumilast [Daliresp -] 500 mcg PO DAILY #30 tablet 07/21/14 Metformin HCl 500 mg PO DAILY 05/09/15 Pregabalin [Lyrica -] 75 mg PO BID 05/09/15 Albuterol 0.083% Nebulizer Lisa [Ventolin 0.083% Nebulizer Soln -] 1 neb NEB BID 12/01/15 Aspirin [ASA -] 81 mg PO DAILY 04/18/16 Calcium Carbonate [Calcium] 500 mg PO BID 04/18/16 Escitalopram Oxalate [Lexapro -] 10 mg PO BID 04/18/16 Pantoprazole Sodium [Protonix] 40 mg PO DAILY 04/18/16 Pramipexole Di-HCl [Mirapex] 0.5 mg PO HS 04/18/16 Sucralfate [Carafate] 1 gm PO BID 04/18/16 [place]-3 Acid Ethyl Esters [Lovaza -] 2 gm PO BID cap 04/21/16 Benzonatate [Tessalon Perle -] 200 mg PO BID 05/04/16 Levalbuterol Tartrate [Xopenex Hfa] 15 gm IH DAILY PRN 05/04/16 Nortriptyline HCl [Pamelor -] 30 mg PO HS 05/04/16 Salmeterol/Fluticasone [Advair 100Mcg/50Mcg -] 1 inh PO BID 07/13/16 Atorvastatin Ca [Lipitor] 10 mg PO HS #30 tablet 07/16/16 Ferrous Sulfate [Feosol] 325 mg PO BIDWM #120 ud 07/16/16 Apixaban [Eliquis -] 2.5 mg PO BID #60 tablet 07/26/16 Methimazole [Tapazole -] 15 mg PO TID #90 tablet 07/26/16 Sotalol HCl [Betapace -] 80 mg PO BID #60 tablet 07/26/16 Insulin Glargine,Hum.rec.anlog [Lantus (nf)] 5 units SQ HS #1 vial 08/03/16 Insulin Sliding Scale [Novolog Vial Sliding Scale -] 1 vial SQ ACHS #30 units Prednisone See Taper PO BID #60 tablet 08/03/16 Methimazole [Tapazole] 10 mg PO TID 08/09/16 Nortriptyline HCl [Pamelor -] 10 mg PO HS 08/09/16 Pramipexole Di-HCl [Mirapex] 0.5 mg PO HS 08/09/16 Pregabalin [Lyrica] 75 mg PO DAILY 08/09/16 Review of Systems Unable to obtain ROS, reason: pt in resp distress Physical Exam Vital Sings: Vital Signs Temperature 101.0 F H 08/09/16 11:59 Pulse Rate 105 H 08/09/16 11:59 Respiratory Rate 22 08/09/16 11:59 Blood Pressure 121/67 08/09/16 11:59 O2 Sat by Pulse Oximetry (%) 90 L 08/09/16 11:59 Constitutional: Yes: Diaphoresis, Moderate Distress Eyes: Yes: Conjunctiva Clear, EOM Intact HENT: Yes: Atraumatic, Normocephalic Neck: Yes: Supple, Trachea Midline Cardiovascular: Yes: Tachycardia Respiratory: Yes: Rhonchi, Wheezes ...Clubbing: No Gastrointestinal: Yes: Normal Bowel Sounds, Soft. No: Tenderness Edema: Yes Neurological: Yes: Alert Labs: ABG Results ABG pH 7.42 (7.35-7.45) 08/09/16 09:40 ABG pCO2 at Pt Temp 53.1 mmHg (35-45) H D 08/09/16 09:40 ABG pO2 at Pt Temp 66.2 mmHg (68-100) L 08/09/16 09:40 ABG HCO3 33.8 meq/L (22-26) H 08/09/16 09:40 ABG O2 Sat (Measured) 92.1 % (90-98.9) 08/09/16 09:40 ABG O2 Content 13.9 % vol (15-22) L 08/09/16 09:40 ABG Base Excess 8.3 meq/l (-2-2) H 08/09/16 09:40 Imaging - Results Chest X-ray: Report Reviewed, Image Reviewed (left base atelectasis vs consolidation) Problem List - Problems (1) Acute on chronic respiratory failure with hypoxia and hypercapnia Code(s): J96.21 - ACUTE AND CHRONIC RESPIRATORY FAILURE WITH HYPOXIA J96.22 - ACUTE AND CHRONIC RESPIRATORY FAILURE WITH HYPERCAPNIA (2) Pneumonia Code(s): J18.9 - PNEUMONIA, UNSPECIFIED ORGANISM (3) UTI (urinary tract infection) Code(s): N39.0 - URINARY TRACT INFECTION, SITE NOT SPECIFIED Qualifiers: Urinary tract infection type: site unspecified Hematuria presence: without hematuria Qualified Code(s): N39.0 - Urinary tract infection, site not specified (4) Sepsis Code(s): A41.9 - SEPSIS, UNSPECIFIED ORGANISM Qualifiers: Sepsis type: sepsis due to unspecified organism Qualified Code(s): A41.9 - Sepsis, unspecified organism (5) Atrial fibrillation with rapid ventricular response Code(s): I48.91 - UNSPECIFIED ATRIAL FIBRILLATION (6) Acute exacerbation of chronic obstructive pulmonary disease Code(s): J44.1 - CHRONIC OBSTRUCTIVE PULMONARY DISEASE W (ACUTE) EXACERBATION (7) Acute on chronic diastolic (congestive) heart failure Code(s): I50.33 - ACUTE ON CHRONIC DIASTOLIC (CONGESTIVE) HEART FAILURE (8) Coronary artery disease Code(s): I25.10 - ATHSCL HEART DISEASE OF [place] CORONARY ARTERY W/O ANG PCTRS Qualifiers: Coronary Disease-Associated Artery/Lesion type: [place] artery [place] vs. transplanted heart: [place] heart Associated angina: without angina Qualified Code(s): I25.10 - Atherosclerotic heart disease of [place] coronary artery without angina pectoris (9) Diabetes Code(s): E11.9 - TYPE 2 DIABETES MELLITUS WITHOUT COMPLICATIONS Qualifiers: Diabetes mellitus type: type 2 Diabetes mellitus complication status: without complication Diabetes mellitus buttermaker helper insulin use: without half-way use Qualified Code(s): E11.9 - Type 2 diabetes mellitus without complications (10) HTN (hypertension) Code(s): I10 - ESSENTIAL (PRIMARY) HYPERTENSION Qualifiers: Hypertension type: essential hypertension Qualified Code(s): I10 - Essential (primary) hypertension (11) Hyperlipidemia Code(s): E78.5 - HYPERLIPIDEMIA, UNSPECIFIED Qualifiers: Hyperlipidemia type: mixed hyperlipidemia Qualified Code(s): E78.2 - Mixed hyperlipidemia Assessment/Plan r/o Pneumonia UTI Sepsis Atrial Fibrillation with RVR Acute on Chronic LV Diastolic Heart Failure likely rate related CAD r/o Acute COPD Exacerbation HTN DM Hypercholesterolemia - empiric antibiotics to cover health care acquired organisms - f/u cultures, narrow coverage pending sensitivites - rate control on cardizem gtt, titrate as well as IV lopressor pushes - BiPAP to assist in work of breathing - O2 to keep SpO2 >90% - will start empiric steroids - inhaled bronchodilators - IVF - monitor urine output, creatinine - NPO while on BiPAP - ICU monitoring for tenuous respiratory status - DVT/GI prophylaxis Thank you for this consult Osiel Powell MD
[2016-08-09] MEDS ORDERED: methylPREDNISolone NA SUCC 40 MG/1 ML VIAL ONE (13:11)
[2016-08-09] MEDS: methylPREDNISolone NA SUCC 40 MG/1 ML VIAL IVPB SCH ×2 (13:33→18:02)
[2016-08-09] MEDS ORDERED: ALBUTEROL SO4 2.5/IPRATROPIUM 0.5 INH SOL 3 ML VIAL.NEB. NEB ONE ×2 (14:14→14:55)
[2016-08-09] MEDS: ALBUTEROL SO4 2.5/IPRATROPIUM 0.5 INH SOL 3 ML VIAL.NEB. NEB SCH ×2 (14:16→22:01)
--- NOTE | 2016-08-09 16:19 | PN ---
Teaching Attending Note Name of Resident: Deon Starks ATTENDING PHYSICIAN STATEMENT I saw and evaluated the patient. I reviewed the resident's note and discussed the case with the resident. I agree with the resident's findings and plan as documented. SUBJECTIVE: This is an 86-year-old woman with a history of chronic diastolic heart failure, CAD, PAF, COPD, type 2 DM, HTN, hyperlipidemia, GERD, hyperthyroidism, Parkinson disease, anemia, gastric AVMs who was sent in to the ER from [facility] for shortness of breath since last night. She has a cough with yellow sputum. OBJECTIVE: Vital Signs Period Temp Pulse Resp BP Sys/[place] Pulse Ox Last 24 Hr 97.3 F-102.1 F 105-180 20-22 108-148/61-93 88-100 HEART: irregular, tachycardic LUNGS: bilateral wheezes and rhonchi ABDOMEN: soft, non-tender, non-distended, normal BS EXTREMITIES: 1+ edema Laboratory Results - last 24 hr 08/09/16 08/09/16 08/09/16 09:13 09:30 09:30 WBC 21.8 H RBC 5.04 Hgb 10.5 L Hct 36.2 MCV 71.8 L MCHC 29.1 L RDW 27.5 H Plt Count 210 D MPV 9.1 Neutrophils % 95.0 H Lymphocytes % 1.0 L D Monocytes % 3.0 L Reactive Lymphocytes 1 Hypochromic-Microcytic 3+ Poikilocytosis 3+ Anisocytosis 1+ Microcytosis 1+ Macrocytosis 1+ Target Cells 2+ Tear Drop Cells Few Helmet Cells Rare [place] Cells 1+ Morphology Comment Slide scanned INR 1.17 H PTT (Actin FS) 21.8 L Puncture Site ABG pH ABG pCO2 at Pt Temp ABG pO2 at Pt Temp ABG HCO3 ABG O2 Sat (Measured) ABG O2 Content ABG Base Excess [place] Test Carboxyhemoglobin Methemoglobin O2 Delivery Device Oxygen Flow Rate Vent Mode Vent Rate Mechanical Rate PEEP Pressure Support Vent Sodium Potassium Chloride Carbon Dioxide Anion Gap BUN Creatinine Creat Clearance w eGFR POC Glucometer Random Glucose Lactic Acid Calcium Total Bilirubin AST ALT Alkaline Phosphatase Creatine Kinase Troponin I B-Natriuretic Peptide Total Protein Albumin Urine Color Urine Appearance Urine pH Ur Specific [place] Urine Protein Urine Glucose (UA) Urine Ketones Urine Blood Urine Nitrite Urine Bilirubin Urine Urobilinogen Ur Leukocyte Esterase Urine RBC Urine WBC Ur Epithelial Cells Urine Bacteria Hyaline Casts Urine Mucus Blood Type O POSITIVE Antibody Screen Negative 08/09/16 08/09/16 08/09/16 09:30 09:30 09:30 WBC RBC Hgb Hct MCV MCHC RDW Plt Count MPV Neutrophils % Lymphocytes % Monocytes % Reactive Lymphocytes Hypochromic-Microcytic Poikilocytosis Anisocytosis Microcytosis Macrocytosis Target Cells Tear Drop Cells Helmet Cells [place] Cells Morphology Comment INR PTT (Actin FS) Puncture Site ABG pH ABG pCO2 at Pt Temp ABG pO2 at Pt Temp ABG HCO3 ABG O2 Sat (Measured) ABG O2 Content ABG Base Excess [place] Test Carboxyhemoglobin Methemoglobin O2 Delivery Device Oxygen Flow Rate Vent Mode Vent Rate Mechanical Rate PEEP Pressure Support Vent Sodium 139 Potassium 4.5 Chloride 97 L Carbon Dioxide 33 H D Anion Gap 9 BUN 31 H D Creatinine 0.5 L Creat Clearance w eGFR > 60 POC Glucometer Random Glucose 165 H D Lactic Acid 1.544 Calcium 9.2 Total Bilirubin 0.6 D AST 16 ALT 27 D Alkaline Phosphatase 79 Creatine Kinase 25 L Troponin I 0.03 B-Natriuretic Peptide 2458.12 H Total Protein 5.9 L Albumin 2.4 L Urine Color Urine Appearance Urine pH Ur Specific [place] Urine Protein Urine Glucose (UA) Urine Ketones Urine Blood Urine Nitrite Urine Bilirubin Urine Urobilinogen Ur Leukocyte Esterase Urine RBC Urine WBC Ur Epithelial Cells Urine Bacteria Hyaline Casts Urine Mucus Blood Type Antibody Screen 08/09/16 08/09/16 08/09/16 09:40 09:48 13:30 WBC RBC Hgb Hct MCV MCHC RDW Plt Count MPV Neutrophils % Lymphocytes % Monocytes % Reactive Lymphocytes Hypochromic-Microcytic Poikilocytosis Anisocytosis Microcytosis Macrocytosis Target Cells Tear Drop Cells Helmet Cells [place] Cells Morphology Comment INR PTT (Actin FS) Puncture Site Left radial ABG pH 7.42 ABG pCO2 at Pt Temp 53.1 H D ABG pO2 at Pt Temp 66.2 L ABG HCO3 33.8 H ABG O2 Sat (Measured) 92.1 ABG O2 Content 13.9 L ABG Base Excess 8.3 H [place] Test Positive Carboxyhemoglobin 1.8 Methemoglobin 1.5 O2 Delivery Device Bipap Oxygen Flow Rate 60% Vent Mode S/t Vent Rate 14 Mechanical Rate Bipap PEEP 0.0 Pressure Support Vent 12/5 Sodium Potassium Chloride Carbon Dioxide Anion Gap BUN Creatinine Creat Clearance w eGFR POC Glucometer Random Glucose Lactic Acid 2.379 H* Calcium Total Bilirubin AST ALT Alkaline Phosphatase Creatine Kinase Troponin I B-Natriuretic Peptide Total Protein Albumin Urine Color Yellow Urine Appearance Slcloudy Urine pH 5.0 Ur Specific [place] 1.019 Urine Protein 1+ H Urine Glucose (UA) Negative Urine Ketones Trace H Urine Blood 3+ H Urine Nitrite Negative Urine Bilirubin Negative Urine Urobilinogen Negative Ur Leukocyte Esterase Trace H Urine RBC 579 Urine WBC 10 Ur Epithelial Cells Rare Urine Bacteria Rare Hyaline Casts 2 Urine Mucus Few Blood Type Antibody Screen 08/09/16 08/09/16 13:30 14:40 WBC RBC Hgb Hct MCV MCHC RDW Plt Count MPV Neutrophils % Lymphocytes % Monocytes % Reactive Lymphocytes Hypochromic-Microcytic Poikilocytosis Anisocytosis Microcytosis Macrocytosis Target Cells Tear Drop Cells Helmet Cells [place] Cells Morphology Comment INR PTT (Actin FS) Puncture Site ABG pH ABG pCO2 at Pt Temp ABG pO2 at Pt Temp ABG HCO3 ABG O2 Sat (Measured) ABG O2 Content ABG Base Excess [place] Test Carboxyhemoglobin Methemoglobin O2 Delivery Device Oxygen Flow Rate Vent Mode Vent Rate Mechanical Rate PEEP Pressure Support Vent Sodium Potassium Chloride Carbon Dioxide Anion Gap BUN Creatinine Creat Clearance w eGFR POC Glucometer [phone] Random Glucose Lactic Acid Calcium Total Bilirubin AST ALT Alkaline Phosphatase Creatine Kinase Troponin I 0.05 B-Natriuretic Peptide Total Protein Albumin Urine Color Urine Appearance Urine pH Ur Specific [place] Urine Protein Urine Glucose (UA) Urine Ketones Urine Blood Urine Nitrite Urine Bilirubin Urine Urobilinogen Ur Leukocyte Esterase Urine RBC Urine WBC Ur Epithelial Cells Urine Bacteria Hyaline Casts Urine Mucus Blood Type Antibody Screen ASSESSMENT AND PLAN: This is an 86-year-old woman from [facility] with a history of chronic diastolic heart failure, CAD, PAF, COPD, type 2 DM, HTN, hyperlipidemia, GERD, hyperthyroidism, Parkinson disease, anemia, gastric AVMs who was sent to the ER for shortness of breath. 1. Sepsis secondary to UTI and healthcare-associated pneumonia - Rocephin, Zithromax, Vancomycin given in ER - Start Zosyn - IV fluid - Recheck lactic acid 2. Acute on chronic diastolic heart failure - Possibly secondary to rapid atrial fib - Lasix 40 mg IVP given in ER - Rate control 3. Atrial fibrillation with RVR - Cardizem 20 mg IVP given in ER and IV drip started - Continue Cardizem drip - Serial troponins - Continue Eliquis - Cardiology consult 4. Acute exacerbation of COPD - Continue BiPAP - SoluMedrol, DuoNeb, oxygen 5. Hypertension 6. Hyperlipidemia - Continue Lipitor, Lovaza 7. CAD - Continue aspirin, Lipitor 8. Iron-deficiency anemia - Continue ferrous sulfate 9. GERD - Continue Carafate, Protonix 10. Parkinson disease - Continue Mirapex 11. Hyperthyroidism - Continue Tapazole 12. Type 2 diabetes mellitus - Hold Metformin, Lantus - Fingersticks with Novolog sliding scale
[2016-08-09 16:37] VITALS: BMI 32.3
--- NOTE | 2016-08-09 16:41 | CONSULT ---
Consult Consult Specialty:: Cardiology Referred by:: Hospitalist Medicine Reason for Consultation:: Dyspnea - History of Present Illness Chief Complaint: Dyspnea History of Present Illness: 86 year old female with a past medical history of NIDDM, COPD ( on home O2), HTN , HLD, GERD, nonobstructive CAD, early Parkinson's disease, diastolic dysfunction with h/o failure, paroxysmal atrial fibrillation, anemia, gastric AVM post cautery, post herpetic neuralgia recent discharge for AECOPD and diastolic failure, presented with worsening shortness of breath, lethargy, tachypneic and hypoxic and in rapid afib with VR 180s. Started on cardizem gtt and placed on BiPAP, given lasix, now back in sinus rhythm off drip. Febrile to 102. - Past Medical History [employer] GENET[employer]: Yes: Parkinson's Cardio/Vascular: Yes: AFIB (?? HISTORY), CAD, HTN, Hyperlipdemia Pulmonary: Yes: COPD Gastrointestinal: Yes: GERD Musculoskeletal: Yes: Osteoarthritis Endocrine: Yes: Diabetes Mellitus - Alcohol/Substance Use Hx Alcohol Use: No - Smoking History Smoking history: Never smoked Have you smoked in the past 12 months: No If you are a former smoker, when did you quit?: 15 YRS - Social History History of Recent Travel: No Home Medications - Allergies Allergies/Adverse Reactions: Allergies Allergy/AdvReac Type Severity Reaction Status Date / Time No Known Allergies Allergy Verified 07/28/16 18:41 - Home Medications Home Medications: Ambulatory Orders Tiotropium [place] [Spiriva] 1 inh PO BID 07/19/14 Roflumilast [Daliresp -] 500 mcg PO DAILY #30 tablet 07/21/14 Metformin HCl 500 mg PO DAILY 05/09/15 Pregabalin [Lyrica -] 75 mg PO BID 05/09/15 Albuterol 0.083% Nebulizer Lisa [Ventolin 0.083% Nebulizer Soln -] 1 neb NEB BID 12/01/15 Aspirin [ASA -] 81 mg PO DAILY 04/18/16 Calcium Carbonate [Calcium] 500 mg PO BID 04/18/16 Escitalopram Oxalate [Lexapro -] 10 mg PO BID 04/18/16 Pantoprazole Sodium [Protonix] 40 mg PO DAILY 04/18/16 Pramipexole Di-HCl [Mirapex] 0.5 mg PO HS 04/18/16 Sucralfate [Carafate] 1 gm PO BID 04/18/16 [place]-3 Acid Ethyl Esters [Lovaza -] 2 gm PO BID cap 04/21/16 Benzonatate [Tessalon Perle -] 200 mg PO BID 05/04/16 Levalbuterol Tartrate [Xopenex Hfa] 15 gm IH DAILY PRN 05/04/16 Nortriptyline HCl [Pamelor -] 30 mg PO HS 05/04/16 Salmeterol/Fluticasone [Advair 100Mcg/50Mcg -] 1 inh PO BID 07/13/16 Atorvastatin Ca [Lipitor] 10 mg PO HS #30 tablet 07/16/16 Ferrous Sulfate [Feosol] 325 mg PO BIDWM #120 ud 07/16/16 Apixaban [Eliquis -] 2.5 mg PO BID #60 tablet 07/26/16 Methimazole [Tapazole -] 15 mg PO TID #90 tablet 07/26/16 Sotalol HCl [Betapace -] 80 mg PO BID #60 tablet 07/26/16 Insulin Glargine,Hum.rec.anlog [Lantus (nf)] 5 units SQ HS #1 vial 08/03/16 Insulin Sliding Scale [Novolog Vial Sliding Scale -] 1 vial SQ ACHS #30 units Prednisone See Taper PO BID #60 tablet 08/03/16 Methimazole [Tapazole] 10 mg PO TID 08/09/16 Nortriptyline HCl [Pamelor -] 10 mg PO HS 08/09/16 Pramipexole Di-HCl [Mirapex] 0.5 mg PO HS 08/09/16 Pregabalin [Lyrica] 75 mg PO DAILY 08/09/16 Vital Signs: Vital Signs Temperature 98.4 F 08/09/16 15:45 Pulse Rate 83 08/09/16 15:45 Respiratory Rate 27 H 08/09/16 15:45 Blood Pressure 107/51 08/09/16 15:45 O2 Sat by Pulse Oximetry (%) 92 L 08/09/16 16:00 Constitutional: Yes: No Distress, Calm Neck: Yes: Supple Respiratory: Yes: Regular, Diminished, On BiPap Gastrointestinal: Yes: Normal Bowel Sounds, Soft, Abdomen, Obese Cardiovascular: Yes: Regular Rate and Rhythm JVD: No Carotid Bruit: No Heart Sounds: Yes: S1, S2 Murmur: Yes: Systolic Murmur, Grade 1 Edema: No - Other Data Labs, Other Data: INR, PTT INR 1.17 (0.82-1.09) H 08/09/16 09:30 Troponin, BNP 08/09/16 13:30 Troponin I 0.05 Troponin, BNP 08/09/16 13:[address] changes Imaging - Results Chest X-ray: Report Reviewed (Increasing left lung ATX) Problem List - Problems (1) Acute on chronic diastolic (congestive) heart failure Code(s): I50.33 - ACUTE ON CHRONIC DIASTOLIC (CONGESTIVE) HEART FAILURE (2) Acute on chronic respiratory failure with hypoxia and hypercapnia Code(s): J96.21 - ACUTE AND CHRONIC RESPIRATORY FAILURE WITH HYPOXIA J96.22 - ACUTE AND CHRONIC RESPIRATORY FAILURE WITH HYPERCAPNIA (3) Atrial fibrillation with rapid ventricular response Code(s): I48.91 - UNSPECIFIED ATRIAL FIBRILLATION (4) Paroxysmal atrial fibrillation Code(s): I48.0 - PAROXYSMAL ATRIAL FIBRILLATION (5) Acute exacerbation of chronic obstructive pulmonary disease Code(s): J44.1 - CHRONIC OBSTRUCTIVE PULMONARY DISEASE W (ACUTE) EXACERBATION (6) Anemia Code(s): D64.9 - ANEMIA, UNSPECIFIED Qualifiers: Anemia type: unspecified type Qualified Code(s): D64.9 - Anemia, unspecified (7) Coronary artery disease Code(s): I25.10 - ATHSCL HEART DISEASE OF [place] CORONARY ARTERY W/O ANG PCTRS Qualifiers: Coronary Disease-Associated Artery/Lesion type: [place] artery [place] vs. transplanted heart: [place] heart Associated angina: without angina Qualified Code(s): I25.10 - Atherosclerotic heart disease of [place] coronary artery without angina pectoris (8) Gastric AV malformation Code(s): Q27.33 - ARTERIOVENOUS MALFORMATION OF DIGESTIVE SYSTEM VESSEL (9) HTN (hypertension) Code(s): I10 - ESSENTIAL (PRIMARY) HYPERTENSION Qualifiers: Hypertension type: essential hypertension Qualified Code(s): I10 - Essential (primary) hypertension (10) Hyperlipidemia Code(s): E78.5 - HYPERLIPIDEMIA, UNSPECIFIED Qualifiers: Hyperlipidemia type: mixed hyperlipidemia Qualified Code(s): E78.2 - Mixed hyperlipidemia (11) Hyperthyroidism Code(s): E05.90 - THYROTOXICOSIS, UNSP WITHOUT THYROTOXIC CRISIS OR STORM Assessment/Plan 07/14/2016 Echo: Borderline dilated with normal LV fxn LVEF 55-60%, mod LAE, mild MR, mild-mod TR, RVSP 49 mmHg, tr AR, AR 1. Acute on chronic hypercapeniec/hypoxemic respiratory failure related to COPD/ emphysema exacerbation, PNA 2. Acute on chronic LV diastolic failure 3. CAD non obstructive CAD angina pectoris 4. Paroxysmal atrial fibrillation with RVR currently in sinus rhythm [id number] score of 7 on NOAC 4. HTN 5. NIDDM 6. Hyperlipidemia 7. Parkinson's disease 8. Hyperthyroidism 9. Anemia 10. History of gastritis - gastric AVM post cautery PLAN: 1. Resume Sotalol 80 mg BID, Diovan 80 mg QD, Eliquis 5 mg BID, Lovaza 2 g BID and Lipitor 10 mg QHS once oral intake resumed 2. IV diuresis with monitor diuretic response, renal fxn and electrolytes 3. Empiric abx, steroids, Bronchodilators, Daliresp, O2 and BIPAP as needed 4. Continue Tapazole 5. GI prophylaxis 6. Thank you for consultative opportunity
--- NOTE | 2016-08-09 17:34 | PN ---
Physical Exam: SUBJECTIVE: Patient seen and examined at bedside. Breathing comfortably on BiPaP. Received from ED with sepsis 2/2 UTI. Denies CP,NGUYEN, palpitations, abdominal pain, N/V. OBJECTIVE: Vital Signs Period Temp Pulse Resp BP Sys/Pinedo Pulse Ox Last 24 Hr 97.3 F-101.0 F 83-160 20-30 102-126/51-93 88-99 GENERAL: The patient is awake, alert, on BiPaP with mild distress. HEAD: Normal with no signs of trauma. EYES: PERRL, extraocular movements intact, sclera anicteric, Cataracts noted bilat. ENT: nares patent and hearing grossly normal NECK: supple. No JVD. LUNGS: Scattered coarse rhonchi. Diminished breath sounds bilat. no accessory muscle use. HEART: Regular rate and rhythm, S1, S2 without murmur, rub or gallop. ABDOMEN: Soft, nontender, nondistended, normoactive bowel sounds, no guarding, no rebound, no hepatosplenomegaly, no masses. EXTREMITIES: 2+ pulses, warm, well-perfused, trace bilat.LE edema NEUROLOGICAL: awake and alert. gait not observed. PSYCH: anxious SKIN: Echymosis Laboratory Results - last 24 hr 08/09/16 08/09/16 08/09/16 13:30 13:30 14:40 POC Glucometer [id number] Lactic Acid 2.379 H* Troponin I 0.05 Active Medications Generic Name Dose Route Start Last Admin Trade Name Freq PRN Reason Stop Dose Admin Albuterol/Ipratropium 1 amp 08/09/16 14:00 08/09/16 14:16 Duoneb - NEB 1 amp TIDR MICHAEL Administration Apixaban 5 mg 08/09/16 22:00 Eliquis - PO BID MICHAEL Atorvastatin Calcium 10 mg 08/09/16 22:00 Lipitor - PO HS MICHAEL Chlorhexidine Gluconate 1 applic 08/09/16 22:00 Hibiclens For Decolonization - TP HS MICHAEL Furosemide 40 mg 08/10/16 10:00 Lasix Injection - IVPB DAILY MICHAEL Diltiazem HCl 125 mg/ Dextrose 125 mls @ 10 mls/hr 08/09/16 13:04 08/09/16 15: 45 IVPB 0 mg/hr TITR MICHAEL Titration Protocol 10 MG/HR Methylprednisolone Sodium Succinate 40 mg 08/09/16 13:00 08/09/16 13:33 Solu-Medrol - IVPB 40 mg Q8H-IV MICHAEL Administration Metoprolol Tartrate 5 mg 08/09/16 13:04 Lopressor Injection - IVPUSH Q4H PRN HYPERTENSION Mupirocin 1 applic 08/09/16 22:00 Bactroban Ointment (For Decolonization) - NS 08/14/16 21:59 BID MICHAEL Sybei-2-Otwp Ethyl Esters 2 gm 08/09/16 22:00 Lovaza - PO BID MICHAEL Piperacillin Sod/Tazobactam Sod 3.375 gm 08/09/16 18:00 Zosyn 3.375gm Ivpb (Pre-Docked) IVPB Q8H-IV MICHAEL Sotalol HCl 80 mg 08/09/16 22:00 Betapace - PO BID MICHAEL Valsartan 80 mg 08/10/16 10:00 Diovan - PO DAILY MICHAEL IMAGING: * EKG interpretation: Rate of 107 Sinus Tach with PAC's. * CXR shows increased LLL atelectasis when compared to previous. * ECHO done 07/14/16 shows diastolic dysfunction. ASSESSMENT/PLAN: 86 year old female with a past medical history of NIDDM, COPD ( on home O2), HTN , HLD, GERD, nonobstructive CAD, early Parkinson's disease, diastolic dysfunction with h/o failure, paroxysmal atrial fibrillation, anemia, gastric AVM post cautery admitted to ICU for sepsis 2/2 PNA/UTI accompanied by AFIB with RVR requiring cardizem ggt and hypoxia requiring BiPaP. Neuro: * Awake and alert and anxious * will continue to monitor for any MS changes or focal neuro def. Pulmonary: * Currently on BiPaP will continue for now- re-evaluate in AM * Maintain O2 sat >90% * Albuterol/Ipratropium (Duoneb -) 1 amp NEB TID * Methylprednisolone Sodium Succinate (Solu-Medrol -) 40 mg IVPB Q8H-IV CV: CAD, CHF, Afib RVR * Seen by Dr. Tucker cardiology * Rhythm control-Sotalol 80 mg PO BID * AC-Apixaban 5 mg PO BID * CHF :Atorvastatin 10 mg PO HS * Furosemide (Lasix Injection -) 40 mg IVPB DAILY * Metoprolol Tartrate 5 mg IVPUSH Q4H PRN * Valsartan (Diovan -) 80 mg PO DAILY * Continue cardiac monitoring. ID:HAP and UTI * Piperacillin Sod/Tazobactam 3.375 gm IVPB Q8H-IV (day1) * Repeat CBC and CXR in AM ENDO: * ADA diet * ISS ACHS * BGM ACHS GI/DVT prophylaxis: * Eliquis 5mg PO BID * Protonix 40mg HS DISPO: Will continue to manage in ICU for Sepsis 2/2 UTI/PNA Visit type - Emergency Visit Emergency Visit: Yes ED Registration Date: 08/09/16 Care time: The patient presented to the Emergency Department on the above date and was hospitalized for further evaluation of their emergent condition. - New Patient This patient is new to me today: Yes Date on this admission: 08/09/16 - Critical Care Critical Care patient: Yes Total Critical Care Time (in minutes): 45 Critical Care Statement: The care of this patient involved high complexity decision making to prevent further life threatening deterioration of the patient 's condition and/or to evalute & treat vital organ system(s) failure or risk of failure.
[2016-08-09] MEDS: PIPERACILLIN/TAZOB 3.375 GM/50 ML PRE-DOCKED IVPB SCH (18:57)
[2016-08-09] MEDS ORDERED: PT OWN MED DRAWER 7, Y5N ONE (21:24)
[2016-08-09] MEDS: ATORVASTATIN CA 10 MG TABLET (FP) PO SCH (21:27)
[2016-08-09] MEDS: CHLORHEXIDINE GLUCONATE 4% CLEANSER FOR DECOLONIZATION TP SCH (21:27)
[2016-08-09] MEDS: APIXABAN 5 MG TABLET PO SCH (21:27)
[2016-08-09] MEDS: MUPIROCIN 2% TOPICAL OINTMENT FOR DECOLONIZATION NS SCH (21:27)
[2016-08-09] MEDS: SOTALOL HCL 80 MG TABLET (FP) PO SCH (21:27)
[2016-08-09] MEDS: OMEGA-3 ACID ETHYL ESTERS (FATTY-ACIDS) 1 GM CAPSULE (FP) PO SCH (21:28)
[2016-08-09] MEDS: METHIMAZOLE 5 MG TABLET (FP) PO SCH (21:28)
[2016-08-09] MEDS: NORTRIPTYLINE HCL 10 MG CAPSULE PO SCH (21:29)
[2016-08-09] MEDS ORDERED: METHIMAZOLE 5 MG TABLET (FP) PO SCH (22:00)
[2016-08-09] MEDS ORDERED: CHLORHEXIDINE GLUCONATE 4% CLEANSER FOR DECOLONIZATION TP SCH (22:00)
[2016-08-10] MEDS: methylPREDNISolone NA SUCC 40 MG/1 ML VIAL IVPB SCH ×3 (02:19→17:20)
[2016-08-10] MEDS: PIPERACILLIN/TAZOB 3.375 GM/50 ML PRE-DOCKED IVPB SCH ×2 (02:19→09:22)
[2016-08-10] MEDS ORDERED: PT OWN MED DRAWER 7, Y5N ONE ×3 (05:57→21:40)
[2016-08-10] MEDS: METHIMAZOLE 5 MG TABLET (FP) PO SCH ×3 (06:02→21:42)
[2016-08-10 06:08] LABS: MCH 21.2 pg (25.7-33.7); MCHC 29.9 g/dl (32.0-36.0); MEAN CELL VOLUME 70.7 fl (80-96); MEAN PLT VOLUME 9.1 fl (7.5-11.1); PLATELET COUNT 199 K/MM3 (134-434); RDW 27.9 % (11.6-15.6)
[2016-08-10] MEDS: ALBUTEROL SO4 2.5/IPRATROPIUM 0.5 INH SOL 3 ML VIAL.NEB. NEB SCH ×3 (06:43→22:03)
[2016-08-10] MEDS: METOPROLOL TARTRATE 5 MG/5 ML VIAL IVPUSH PRN ×2 (07:10→17:20)
[2016-08-10 07:39] LABS: ALK PHOS 67 U/L (45-117); ANION GAP 6 (8-16); BILIRUBIN,TOTAL 0.5 mg/dL (0.2-1.0); CO2 39 mmol/L (21-32); CREATININE 0.6 mg/dL (0.55-1.02); GLUCOSE,RANDOM 277 mg/dL (74-106); MAGNESIUM 1.8 mg/dL (1.8-2.4); PHOSPHOROUS 3.5 mg/dL (2.5-4.9); SGOT/AST 9 U/L (15-37); SGPT/ALT 20 U/L (12-78); TOT PROT 5.2 g/dl (6.4-8.2)
[2016-08-10] MEDS: SOTALOL HCL 80 MG TABLET (FP) PO SCH (08:00)
--- NOTE | 2016-08-10 08:24 | PN ---
Teaching Attending Note Name of Resident: Deon Starks ATTENDING PHYSICIAN STATEMENT I saw and evaluated the patient. I reviewed the resident's note and discussed the case with the resident. I agree with the resident's findings and plan as documented. SUBJECTIVE:In ICU Patient is having difficulty with breathing, hypoxic on room Air, O2 sat. drops to high 80's. OBJECTIVE: Vital Signs Temperature 97.5 F L 08/10/16 08:00 Pulse Rate 131 H 08/10/16 08:00 Respiratory Rate 26 H 08/10/16 08:00 Blood Pressure 109/83 08/10/16 08:00 O2 Sat by Pulse Oximetry (%) 100 08/10/16 08:00 GENERAL: The patient is awake, alert, and fully oriented, with moderate distress HEAD: Normal with no signs of trauma. EYES: extraocular movements intact, sclera anicteric, conjunctiva clear. ENT: Ears normal, nares patent, on bipap. NECK: Trachea midline, full range of motion, supple. LUNGS: b/l wheezing. tachypneic, tachycardic HEART:Irregularly irregular with rate of 131,s1s2 positive, MANISHA 2/6 ABDOMEN: Soft, nontender, nondistended, normoactive bowel sounds, EXTREMITIES:faint pulses, warm, no edema. no calf tenderness NEUROLOGICAL: Normal speech, gait not observed. PSYCH: Normal mood, normal affect. SKIN: Warm, dry, normal turgor, no rashes or lesions noted CBCD WBC 20.0 K/mm3 (4.0-10.0) H 08/10/16 05:05 RBC 4.43 M/mm3 (3.60-5.2) 08/10/16 05:05 Hgb 9.4 GM/dL (10.7-15.3) L D 08/10/16 05:05 Hct 31.4 % (32.4-45.2) L 08/10/16 05:05 MCV 70.7 fl (80-96) L 08/10/16 05:05 MCHC 29.9 g/dl (32.0-36.0) L 08/10/16 05:05 RDW 27.9 % (11.6-15.6) H 08/10/16 05:05 Plt Count 199 K/MM3 (134-434) 08/10/16 05:05 MPV 9.1 fl (7.5-11.1) 08/10/16 05:05 CMP Sodium 141 mmol/L (136-145) 08/10/16 05:05 Potassium 4.1 mmol/L (3.5-5.1) 08/10/16 05:05 Chloride 96 mmol/L (98-107) L 08/10/16 05:05 Carbon Dioxide 39 mmol/L (21-32) H 08/10/16 05:05 Anion Gap 6 (8-16) L 08/10/16 05:05 BUN 36 mg/dL (7-18) H 08/10/16 05:05 Creatinine 0.6 mg/dL (0.55-1.02) 08/10/16 05:05 Creat Clearance w eGFR > 60 (>60) 08/10/16 05:05 Random Glucose 277 mg/dL (74-106) H D 08/10/16 05:05 Calcium 9.0 mg/dL (8.5-10.1) 08/10/16 05:05 Total Bilirubin 0.5 mg/dL (0.2-1.0) 08/10/16 05:05 AST 9 U/L (15-37) L D 08/10/16 05:05 ALT 20 U/L (12-78) D 08/10/16 05:05 Alkaline Phosphatase 67 U/L (45-117) 08/10/16 05:05 Total Protein 5.2 g/dl (6.4-8.2) L 08/10/16 05:05 Albumin 2.0 g/dl (3.4-5.0) L 08/10/16 05:05 CARDIAC ENZYMES Creatine Kinase 25 IU/L (26-192) L 08/09/16 09:30 Troponin I 0.03 ng/ml (0.00-0.05) 08/09/16 20:00 Current Medications Generic Name Dose Route Start Last Admin Trade Name Freq PRN Reason Stop Dose Admin Albuterol/Ipratropium 1 amp 08/09/16 14:00 08/10/16 06:43 Duoneb - NEB 1 amp TIDR MICHAEL Administration Apixaban 5 mg 08/09/16 22:00 08/09/16 21:27 Eliquis - PO 5 mg BID MICHAEL Administration Atorvastatin Calcium 10 mg 08/09/16 22:00 08/09/16 21:27 Lipitor - PO 10 mg HS MICHAEL Administration Chlorhexidine Gluconate 1 applic 08/09/16 22:00 08/09/16 21:27 Hibiclens For Decolonization - TP 1 applic HS MICHAEL Administration Furosemide 40 mg 08/10/16 10:00 Lasix Injection - IVPB DAILY MICHAEL Diltiazem HCl 125 mg/ Dextrose 125 mls @ 10 mls/hr 08/09/16 13:04 08/09/16 15: 45 IVPB 0 mg/hr TITR MICHAEL Titration Protocol 10 MG/HR Methimazole 15 mg 08/09/16 22:00 08/10/16 06:02 Tapazole - PO 15 mg TID MICHAEL Administration Methylprednisolone Sodium Succinate 40 mg 08/09/16 13:00 08/10/16 02:19 Solu-Medrol - IVPB 40 mg Q8H-IV MICHAEL Administration Metoprolol Tartrate 5 mg 08/09/16 13:04 08/10/16 07:10 Lopressor Injection - IVPUSH 5 mg Q4H PRN Administration HYPERTENSION Mupirocin 1 applic 08/09/16 22:00 08/09/16 21:27 Bactroban Ointment (For Decolonization) - NS 08/14/16 21:59 1 applic BID MICHAEL Administration Nortriptyline HCl 30 mg 08/09/16 22:00 08/09/16 21:29 Pamelor - PO 30 mg HS [facility] Administration Hfctt-3-Zlzt Ethyl Esters 2 gm 08/09/16 22:00 08/09/16 21:28 Lovaza - PO 2 gm BID MICHAEL Administration Piperacillin Sod/Tazobactam Sod 3.375 gm 08/09/16 18:00 08/10/16 02:19 Zosyn 3.375gm Ivpb (Pre-Docked) IVPB 3.375 gm Q8H-IV [facility] Administration Sotalol HCl 80 mg 08/09/16 22:00 08/09/16 21:27 Betapace - PO 80 mg BID MICHAEL Administration Valsartan 80 mg 08/10/16 10:00 Diovan - PO DAILY [facility] Medication Instructions Recorded Tiotropium Bob White [Spiriva] 1 inh PO BID 07/19/14 Roflumilast [Daliresp -] 500 mcg PO DAILY #30 tablet 07/21/14 Metformin HCl 500 mg PO DAILY 05/09/15 Pregabalin [Lyrica -] 75 mg PO BID 05/09/15 Albuterol 0.083% Nebulizer Lisa 1 neb NEB BID 12/01/15 [Ventolin 0.083% Nebulizer Soln -] Aspirin [ASA -] 81 mg PO DAILY 04/18/16 Calcium Carbonate [Calcium] 500 mg PO BID 04/18/16 Escitalopram Oxalate [Lexapro -] 10 mg PO BID 04/18/16 Pantoprazole Sodium [Protonix] 40 mg PO DAILY 04/18/16 Pramipexole Di-HCl [Mirapex] 0.5 mg PO HS 04/18/16 Sucralfate [Carafate] 1 gm PO BID 04/18/16 Lincoln-3 Acid Ethyl Esters [Lovaza 2 gm PO BID cap 04/21/16 -] Benzonatate [Tessalon Perle -] 200 mg PO BID 05/04/16 Levalbuterol Tartrate [Xopenex Hfa] 15 gm IH DAILY PRN 05/04/16 Nortriptyline HCl [Pamelor -] 30 mg PO HS 05/04/16 Salmeterol/Fluticasone [Advair 1 inh PO BID 07/13/16 100Mcg/50Mcg -] Atorvastatin Ca [Lipitor] 10 mg PO HS #30 tablet 07/16/16 Ferrous Sulfate [Feosol] 325 mg PO BIDWM #120 ud 07/16/16 Apixaban [Eliquis -] 2.5 mg PO BID #60 tablet 07/26/16 Methimazole [Tapazole -] 15 mg PO TID #90 tablet 07/26/16 Sotalol HCl [Betapace -] 80 mg PO BID #60 tablet 07/26/16 Insulin Glargine,Hum.rec.anlog 5 units SQ HS #1 vial 08/03/16 [Lantus (nf)] Insulin Sliding Scale [Novolog 1 vial SQ ACHS #30 units 08/03/16 Vial Sliding Scale -] Prednisone See Taper PO BID #60 tablet 08/03/16 Methimazole [Tapazole] 10 mg PO TID 08/09/16 Nortriptyline HCl [Pamelor -] 10 mg PO HS 08/09/16 Pramipexole Di-HCl [Mirapex] 0.5 mg PO HS 08/09/16 Pregabalin [Lyrica] 75 mg PO DAILY 08/09/16 Microbiology 08/10/16 12:16 Urine For Antigen Detection Legionella Antigen - Final 08/10/16 12:16 Urine For Antigen Detection Streptococcus pneumoniae Antigen (M - Final 08/10/16 12:15 Nasopharyngeal Swab Influenza Types A,B Antigen (MATEUS) - Final 08/10/16 12:15 Nasopharyngeal Swab - Final 08/09/16 09:48 Urine - Urine - Catheterized Urine Culture - Final NO GROWTH OBTAINED 08/09/16 09:30 Blood - Peripheral Venous Blood Culture - Preliminary NO GROWTH OBTAINED AFTER 24 HOURS, INCUBATION TO CONTINUE FOR 4 DAYS. 08/09/16 08:30 Blood - Peripheral Venous Blood Culture - Preliminary NO GROWTH OBTAINED AFTER 24 HOURS, INCUBATION TO CONTINUE FOR 4 DAYS. ASSESSMENT AND PLAN: 86 yr old woman with multiple co-morbidities BIBEMS from [facility] for difficulty breathing, was found to be in rapid Afib in the ED admitted for sepsis likely from pna, rapid Afib, and hypoxia/respiratory distress. # Acute Sepsis due to Strept Pneumo. On IV rocephin 1gm iv daily #Afib with RVR continue sotalol 80mg po bid ,continue cardizem drip and titrtate as needed , On abixapan 5mg po bid #Respiratory distress/hypoxia - improved with Bipap; duonebs TID prn , solumedrol increased to 60mg IVPB q8 since wheezing with labored breathing. #DM novolog sliding scale with BGM ACHS #HTN/CHF Lopressor 5mg IVPush q6h prn , diovan 80m g po daily, lasix 40mg IVPB daily #CAD atorvastatin 10mg continue #Hyperthyroidism methiazole 15mg po TID #Diet: diabetic/low sodium #DVT prophylaxis - on Noac; Eliquis
[2016-08-10] MEDS: MUPIROCIN 2% TOPICAL OINTMENT FOR DECOLONIZATION NS SCH ×2 (09:21→21:36)
[2016-08-10] MEDS: APIXABAN 5 MG TABLET PO SCH ×2 (09:22→21:43)
[2016-08-10] MEDS: OMEGA-3 ACID ETHYL ESTERS (FATTY-ACIDS) 1 GM CAPSULE (FP) PO SCH ×2 (09:22→21:41)
[2016-08-10] MEDS: FUROSEMIDE 40 MG/4 ML INJECTABLE VIAL IVPB SCH (09:22)
[2016-08-10] MEDS: VALSARTAN 80 MG TABLET (UD) PO SCH (09:22)
--- NOTE | 2016-08-10 11:52 | MSN ---
Progress Note (SOAP) - Subjective Chief Complaint: SOB History of Present Illness: Patient was examined at bedside. She is currently still complaining of SOB and is having pain in her chest. The pain is reproducible with palpation and is rated a 5/10 pain. Patient was noticibly weak and unable to speak clearly without feeling SOB. She only speaks pakistani. - Current Medications Current Medications: Active Medications Albuterol/Ipratropium (Duoneb -) 1 amp NEB TIDR [facility] Last Admin: 08/10/16 06:43 Dose: 1 amp Apixaban (Eliquis -) 5 mg PO BID [facility] Last Admin: 08/10/16 09:22 Dose: 5 mg Atorvastatin Calcium (Lipitor -) 10 mg PO [facility] Last Admin: 08/09/16 21:27 Dose: 10 mg Chlorhexidine Gluconate (Hibiclens For Decolonization -) 1 applic TP [facility] Last Admin: 08/09/16 21:27 Dose: 1 applic Furosemide (Lasix Injection -) 40 mg IVPB DAILY [facility] Last Admin: 08/10/16 09:22 Dose: 40 mg Methimazole (Tapazole -) 15 mg PO TID [facility] Last Admin: 08/10/16 06:02 Dose: 15 mg Methylprednisolone Sodium Succinate (Solu-Medrol -) 60 mg IVPB Q8H-IV [facility] Metoprolol Tartrate (Lopressor Injection -) 5 mg IVPUSH Q4H PRN PRN Reason: HYPERTENSION Last Admin: 08/10/16 07:10 Dose: 5 mg Mupirocin (Bactroban Ointment (For Decolonization) -) 1 applic NS BID [facility] Stop: 08/14/16 21:59 Last Admin: 08/10/16 09:21 Dose: 1 applic Nortriptyline HCl (Pamelor -) 30 mg PO [facility] Last Admin: 08/09/16 21:29 Dose: 30 mg Kyznv-0-Yepe Ethyl Esters (Lovaza -) 2 gm PO BID [facility] Last Admin: 08/10/16 09:22 Dose: 2 gm Piperacillin Sod/Tazobactam Sod (Zosyn 3.375gm Ivpb (Pre-Docked)) 3.375 gm IVPB Q8H-IV [facility] Last Admin: 08/10/16 09:22 Dose: 3.375 gm Sotalol HCl (Betapace -) 80 mg PO BID [facility] Last Admin: 08/10/16 08:00 Dose: 80 mg Valsartan (Diovan -) 80 mg PO DAILY [facility] Last Admin: 08/10/16 09:22 Dose: 80 mg - Objective Vital Signs: Vital Signs Temperature 97.4 F L 08/10/16 10:00 Pulse Rate 83 08/10/16 10:00 Respiratory Rate 32 H 08/10/16 10:00 Blood Pressure 134/81 08/10/16 10:00 O2 Sat by Pulse Oximetry (%) 97 08/10/16 09:35 Constitutional: Yes: Mild Distress HENT: Yes: WNL, Atraumatic, Normocephalic Neck: Yes: WNL, Supple, Trachea Midline Cardiovascular: Yes: Tachycardia, Pulse Irregular, S1, S2 Respiratory: Yes: On BiPap, Rales, Rhonchi Gastrointestinal: Yes: WNL, Normal Bowel Sounds, Soft Genitourinary: Yes: WNL Musculoskeletal: Yes: WNL, Muscle Weakness Peripheral Pulses WNL: Yes Peripheral Pulses: Left Radial: 2+, Right Radial: 2+, Left Doralis Pedis: 2+, Right Dorsalis Pedis: 2+ Edema: Yes Edema: LLE: 1+, RLE: 1+ Integumentary: Yes: WNL Wound/Incision: Yes: Clean/Dry ...Motor Strength: Yes: WNL Psychiatric: Yes: WNL, Alert, Oriented Labs Lab Results: CBC, BMP 08/10/16 05:05 08/10/16 05:05 Assessment/Plan 86 yr old woman with multiple co-morbidities BIBEMS from [facility] for difficulty breathing, was found to be in rapid Afib in the ED admitted for sepsis likely from pna, rapid Afib, and hypoxia/respiratory distress. Sepsis -empiric antibiotics to cover health care acquired organisms -f/u cultures, narrow coverage pending sensitivities -f/u flu swab, urinary antigens -continue sotalol for rate/rhythm control -continue anticoagulation -BiPAP as needed to assist in work of breathing -continue empiric steroids -inhaled bronchodilators -monitor urine output, creatinine -NPO -DVT/GI prophylaxis A. fib -sotalol 80mg po bid -abixapan 5mg po bid Respiratory distress/hypoxia - improved with Bipap -duonebs TID prn -solumedrol 40mg IVPB q8 DM -SSI HTN/CHF - metoprolol - lasix 40mg CAD -atorvastatin 10mg HS po Hyperthyroidism -methiazole
--- NOTE | 2016-08-10 11:53 | PN ---
Progress Note, Physician Chief Complaint: Events noted Currently on ventimask (tolerating) Shortness of breath noted History of Present Illness: Patient was seen and examined. Awake and alert. Chart was reviewed Denies chest pain. Patient is in sinus rhythm this am. Spoke with daughter who is by bedside - Current Medication List Current Medications: Active Medications Albuterol/Ipratropium (Duoneb -) 1 amp NEB TIDR [facility] Last Admin: 08/10/16 06:43 Dose: 1 amp Apixaban (Eliquis -) 5 mg PO BID [facility] Last Admin: 08/10/16 09:22 Dose: 5 mg Atorvastatin Calcium (Lipitor -) 10 mg PO [facility] Last Admin: 08/09/16 21:27 Dose: 10 mg Chlorhexidine Gluconate (Hibiclens For Decolonization -) 1 applic TP [facility] Last Admin: 08/09/16 21:27 Dose: 1 applic Furosemide (Lasix Injection -) 40 mg IVPB DAILY [facility] Last Admin: 08/10/16 09:22 Dose: 40 mg Methimazole (Tapazole -) 15 mg PO TID [facility] Last Admin: 08/10/16 06:02 Dose: 15 mg Methylprednisolone Sodium Succinate (Solu-Medrol -) 60 mg IVPB Q8H-IV [facility] Metoprolol Tartrate (Lopressor Injection -) 5 mg IVPUSH Q4H PRN PRN Reason: HYPERTENSION Last Admin: 08/10/16 07:10 Dose: 5 mg Mupirocin (Bactroban Ointment (For Decolonization) -) 1 applic NS BID [facility] Stop: 08/14/16 21:59 Last Admin: 08/10/16 09:21 Dose: 1 applic Nortriptyline HCl (Pamelor -) 30 mg PO [facility] Last Admin: 08/09/16 21:29 Dose: 30 mg Rwrke-4-Gjuo Ethyl Esters (Lovaza -) 2 gm PO BID [facility] Last Admin: 08/10/16 09:22 Dose: 2 gm Piperacillin Sod/Tazobactam Sod (Zosyn 3.375gm Ivpb (Pre-Docked)) 3.375 gm IVPB Q8H-IV [facility] Last Admin: 08/10/16 09:22 Dose: 3.375 gm Sotalol HCl (Betapace -) 80 mg PO BID [facility] Last Admin: 08/10/16 08:00 Dose: 80 mg Valsartan (Diovan -) 80 mg PO DAILY [facility] Last Admin: 08/10/16 09:22 Dose: 80 mg - Objective Vital Signs: Vital Signs Temperature 97.4 F L 08/10/16 10:00 Pulse Rate 83 08/10/16 10:00 Respiratory Rate 32 H 08/10/16 10:00 Blood Pressure 134/81 08/10/16 10:00 O2 Sat by Pulse Oximetry (%) 97 08/10/16 09:35 Neck: Yes: Supple Cardiovascular: Yes: Regular Rate and Rhythm, S1, S2 Respiratory: Yes: Diminished Gastrointestinal: Yes: Normal Bowel Sounds, Soft. No: Tenderness Edema: No Additional Findings/Remarks: Review of Systems Constitutional: denies: chills, fever Cardiovascular: denies: chest pain, (+) shortness of breath, palpitation Respiratory: denies: cough, sputum production, hemoptysis Gastrointestinal: denies: nausea, vomiting, diarrhea, constipation or abdominal pain Genitourinary: No symptoms reported Musculoskeletal: No symptoms reported Labs: CBC, BMP 08/10/16 05:05 08/10/16 05:05 INR, PTT INR 1.17 (0.82-1.09) H 08/09/16 09:30 Problem List - Problems (1) Acute on chronic diastolic (congestive) heart failure Code(s): I50.33 - ACUTE ON CHRONIC DIASTOLIC (CONGESTIVE) HEART FAILURE (2) Acute on chronic respiratory failure with hypoxia and hypercapnia Code(s): J96.21 - ACUTE AND CHRONIC RESPIRATORY FAILURE WITH HYPOXIA J96.22 - ACUTE AND CHRONIC RESPIRATORY FAILURE WITH HYPERCAPNIA (3) Atrial fibrillation with rapid ventricular response Code(s): I48.91 - UNSPECIFIED ATRIAL FIBRILLATION (4) CHF (congestive heart failure) Code(s): I50.9 - HEART FAILURE, UNSPECIFIED Qualifiers: Congestive heart failure type: diastolic Congestive heart failure chronicity: acute on chronic Qualified Code(s): I50.33 - Acute on chronic diastolic (congestive) heart failure (5) Paroxysmal atrial fibrillation Code(s): I48.0 - PAROXYSMAL ATRIAL FIBRILLATION (6) Acute exacerbation of chronic obstructive pulmonary disease Code(s): J44.1 - CHRONIC OBSTRUCTIVE PULMONARY DISEASE W (ACUTE) EXACERBATION (7) Anemia Code(s): D64.9 - ANEMIA, UNSPECIFIED Qualifiers: Anemia type: unspecified type Qualified Code(s): D64.9 - Anemia, unspecified (8) COPD (chronic obstructive pulmonary disease) Code(s): J44.9 - CHRONIC OBSTRUCTIVE PULMONARY DISEASE, UNSPECIFIED Qualifiers : COPD type: emphysema Emphysema type: centrilobular Qualified Code(s): J43.2 - Centrilobular emphysema (9) Cardiomyopathy as manifestation of underlying disease Code(s): I43 - CARDIOMYOPATHY IN DISEASES CLASSIFIED ELSEWHERE (10) Coronary artery disease Code(s): I25.10 - ATHSCL HEART DISEASE OF [place] CORONARY ARTERY W/O ANG PCTRS Qualifiers: Coronary Disease-Associated Artery/Lesion type: [place] artery [place] vs. transplanted heart: [place] heart Associated angina: without angina Qualified Code(s): I25.10 - Atherosclerotic heart disease of [place] coronary artery without angina pectoris (11) Diabetes Code(s): E11.9 - TYPE 2 DIABETES MELLITUS WITHOUT COMPLICATIONS Qualifiers: Diabetes mellitus type: type 2 Diabetes mellitus complication status: without complication Diabetes mellitus nursing home insulin use: without long term acute care registered nurse use Qualified Code(s): E11.9 - Type 2 diabetes mellitus without complications (12) Diastolic dysfunction with chronic heart failure Code(s): I50.32 - CHRONIC DIASTOLIC (CONGESTIVE) HEART FAILURE (13) Gastric AV malformation Code(s): Q27.33 - ARTERIOVENOUS MALFORMATION OF DIGESTIVE SYSTEM VESSEL (14) HTN (hypertension) Code(s): I10 - ESSENTIAL (PRIMARY) HYPERTENSION Qualifiers: Hypertension type: essential hypertension Qualified Code(s): I10 - Essential (primary) hypertension (15) Hyperlipidemia Code(s): E78.5 - HYPERLIPIDEMIA, UNSPECIFIED Qualifiers: Hyperlipidemia type: mixed hyperlipidemia Qualified Code(s): E78.2 - Mixed hyperlipidemia (16) Hyperthyroidism Code(s): E05.90 - THYROTOXICOSIS, UNSP WITHOUT THYROTOXIC CRISIS OR STORM (17) Pneumonia Code(s): J18.9 - PNEUMONIA, UNSPECIFIED ORGANISM Assessment/Plan 1. Acute on chronic hypercapeniec/hypoxemic respiratory failure related to COPD/ emphysema exacerbation and pneumonia 2. Acute on chronic LV diastolic failure 3. Non obstructive CAD, angina pectoris 4. Paroxysmal atrial fibrillation with RVR currently in sinus rhythm [id number] score of 7 on NOAC 4. HTN 5. NIDDM 6. Hyperlipidemia 7. Parkinson's disease 8. Hyperthyroidism 9. Anemia 10. History of gastritis - gastric AVM post cautery PLAN: 1. Continue Sotalol 80 mg BID, Diovan 80 mg QD, Eliquis 5 mg BID, Lovaza 2 g BID and Lipitor 10 mg QHS 2. IV diuresis (Lasix) with monitoring renal function and electrolytes 3. Empiric antibiotics, steroids taper, Bronchodilators, O2 and BIPAP as needed 4. Continue Tapazole 5. GI prophylaxis Further plans are to follow Ronn Grimes MD
--- NOTE | 2016-08-10 12:07 | PN ---
Teaching Attending Note Name of Resident: Hamzha Daigle ATTENDING PHYSICIAN STATEMENT I saw and evaluated the patient. I reviewed the resident's note and discussed the case with the resident. I agree with the resident's findings and plan as documented. SUBJECTIVE: Pt seen and examined in the ICU. Remained on BiPAP overnight. Back in sinus rhythm after starting sotalol. OBJECTIVE: Last Vital Signs Temp Pulse Resp BP Pulse Ox 97.4 F L 83 32 H 134/81 97 08/10/16 10:00 08/10/16 10:00 08/10/16 10:00 08/10/16 10:00 08/10/16 09:35 Intake & Output 08/07/16 08/08/16 08/09/16 08/10/16 23:59 23:59 23:59 23:59 Intake Total 170 50 Output Total 1100 1550 Balance -930 -1500 Weight 165 lb 12.743 oz 105 lb 8 oz Gen: mildly tachypneic on BiPAP Heart: RRR Lung: distant breath sounds, scattered left basilar rales Abd: soft, nontender Ext: trace edema CBC, BMP 08/10/16 05:05 08/10/16 05:05 CXR: LLL atelectasis vs consolidation Active Medications Albuterol/Ipratropium (Duoneb -) 1 amp NEB TIDR [facility] Last Admin: 08/10/16 06:43 Dose: 1 amp Apixaban (Eliquis -) 5 mg PO BID [facility] Last Admin: 08/10/16 09:22 Dose: 5 mg Atorvastatin Calcium (Lipitor -) 10 mg PO [facility] Last Admin: 08/09/16 21:27 Dose: 10 mg Chlorhexidine Gluconate (Hibiclens For Decolonization -) 1 applic TP [facility] Last Admin: 08/09/16 21:27 Dose: 1 applic Furosemide (Lasix Injection -) 40 mg IVPB DAILY [facility] Last Admin: 08/10/16 09:22 Dose: 40 mg Methimazole (Tapazole -) 15 mg PO TID [facility] Last Admin: 08/10/16 06:02 Dose: 15 mg Methylprednisolone Sodium Succinate (Solu-Medrol -) 60 mg IVPB Q8H-IV MICHAEL Metoprolol Tartrate (Lopressor Injection -) 5 mg IVPUSH Q4H PRN PRN Reason: HYPERTENSION Last Admin: 08/10/16 07:10 Dose: 5 mg Mupirocin (Bactroban Ointment (For Decolonization) -) 1 applic NS BID [facility] Stop: 08/14/16 21:59 Last Admin: 08/10/16 09:21 Dose: 1 applic Nortriptyline HCl (Pamelor -) 30 mg PO HS [facility] Last Admin: 08/09/16 21:29 Dose: 30 mg Wkdkz-9-Dprf Ethyl Esters (Lovaza -) 2 gm PO BID [facility] Last Admin: 08/10/16 09:22 Dose: 2 gm Piperacillin Sod/Tazobactam Sod (Zosyn 3.375gm Ivpb (Pre-Docked)) 3.375 gm IVPB Q8H-IV [facility] Last Admin: 08/10/16 09:22 Dose: 3.375 gm Sotalol HCl (Betapace -) 80 mg PO BID [facility] Last Admin: 08/10/16 08:00 Dose: 80 mg Valsartan (Diovan -) 80 mg PO DAILY [facility] Last Admin: 08/10/16 09:22 Dose: 80 mg ASSESSMENT AND PLAN: r/o Pneumonia UTI Sepsis Paroxysmal Atrial Fibrillation with RVR now in sinus Acute on Chronic LV Diastolic Heart Failure likely rate related CAD r/o Acute COPD Exacerbation HTN DM Hypercholesterolemia - empiric antibiotics to cover health care acquired organisms - f/u cultures, narrow coverage pending sensitivities - f/u flu swab, urinary antigens - continue sotalol for rate/rhythm control - continue anticoagulation - BiPAP as needed to assist in work of breathing - trial of ventimask - O2 to keep SpO2 >90% - continue empiric steroids - inhaled bronchodilators - monitor urine output, creatinine - PO if can tolerate ventimask - DVT/GI prophylaxis - continue ICU monitoring Problem List - Problems (1) Acute on chronic respiratory failure with hypoxia and hypercapnia Code(s): J96.21 - ACUTE AND CHRONIC RESPIRATORY FAILURE WITH HYPOXIA J96.22 - ACUTE AND CHRONIC RESPIRATORY FAILURE WITH HYPERCAPNIA (2) Pneumonia Code(s): J18.9 - PNEUMONIA, UNSPECIFIED ORGANISM (3) UTI (urinary tract infection) Code(s): N39.0 - URINARY TRACT INFECTION, SITE NOT SPECIFIED Qualifiers: Urinary tract infection type: site unspecified Hematuria presence: without hematuria Qualified Code(s): N39.0 - Urinary tract infection, site not specified (4) Sepsis Code(s): A41.9 - SEPSIS, UNSPECIFIED ORGANISM Qualifiers: Sepsis type: sepsis due to unspecified organism Qualified Code(s): A41.9 - Sepsis, unspecified organism (5) Atrial fibrillation with rapid ventricular response Code(s): I48.91 - UNSPECIFIED ATRIAL FIBRILLATION (6) Acute exacerbation of chronic obstructive pulmonary disease Code(s): J44.1 - CHRONIC OBSTRUCTIVE PULMONARY DISEASE W (ACUTE) EXACERBATION (7) Acute on chronic diastolic (congestive) heart failure Code(s): I50.33 - ACUTE ON CHRONIC DIASTOLIC (CONGESTIVE) HEART FAILURE (8) Coronary artery disease Code(s): I25.10 - ATHSCL HEART DISEASE OF [place] CORONARY ARTERY W/O ANG PCTRS Qualifiers: Coronary Disease-Associated Artery/Lesion type: [place] artery [place] vs. transplanted heart: [place] heart Associated angina: without angina Qualified Code(s): I25.10 - Atherosclerotic heart disease of [place] coronary artery without angina pectoris (9) Diabetes Code(s): E11.9 - TYPE 2 DIABETES MELLITUS WITHOUT COMPLICATIONS Qualifiers: Diabetes mellitus type: type 2 Diabetes mellitus complication status: without complication Diabetes mellitus detention insulin use: without detention use Qualified Code(s): E11.9 - Type 2 diabetes mellitus without complications (10) HTN (hypertension) Code(s): I10 - ESSENTIAL (PRIMARY) HYPERTENSION Qualifiers: Hypertension type: essential hypertension Qualified Code(s): I10 - Essential (primary) hypertension (11) Hyperlipidemia Code(s): E78.5 - HYPERLIPIDEMIA, UNSPECIFIED Qualifiers: Hyperlipidemia type: mixed hyperlipidemia Qualified Code(s): E78.2 - Mixed hyperlipidemia
[2016-08-10] MEDS: CEFTRIAXONE 50 ML IVPB SCH (14:47)
--- NOTE | 2016-08-10 14:49 | PN ---
Physical Exam: SUBJECTIVE: Patient seen and examined at bedside. No overnight events. No new complaints. Doing well off BiPap. Denies CP, NGUYEN, palpitations, N/V. OBJECTIVE: Vital Signs Period Temp Pulse Resp BP Sys/Pinedo Pulse Ox Last 24 Hr 97.3 F-98.4 F 70-170 22-32 100-134/51-83 91-100 GENERAL: The patient is awake, alert, NAD HEAD: Normal with no signs of trauma. EYES: PERRL, extraocular movements intact, sclera anicteric, Cataracts noted bilat. ENT: nares patent and hearing grossly normal NECK: supple. No JVD. LUNGS: Scattered coarse rhonchi. Diminished breath sounds bilat. no accessory muscle use. HEART: Regular rate and rhythm, S1, S2 without murmur, rub or gallop. ABDOMEN: Soft, nontender, nondistended, normoactive bowel sounds, no guarding, no rebound, no hepatosplenomegaly, no masses. EXTREMITIES: 2+ pulses, warm, well-perfused, trace bilat.LE edema NEUROLOGICAL: awake and alert. gait not observed. PSYCH: anxious SKIN: Echymosis on extremities. Laboratory Results - last 24 hr 08/09/16 08/09/16 08/09/16 14:40 17:30 20:00 WBC RBC Hgb Hct MCV MCHC RDW Plt Count MPV Neutrophils % Lymphocytes % Monocytes % Band Neutrophils Sodium Potassium Chloride Carbon Dioxide Anion Gap BUN Creatinine Creat Clearance w eGFR POC Glucometer [phone] Random Glucose Lactic Acid 1.741 Calcium Phosphorus Magnesium Total Bilirubin AST ALT Alkaline Phosphatase Troponin I 0.03 Total Protein Albumin 08/10/16 08/10/16 08/10/16 05:05 05:05 12:02 WBC 20.0 H RBC 4.43 Hgb 9.4 L D Hct 31.4 L MCV 70.7 L MCHC 29.9 L RDW 27.9 H Plt Count 199 MPV 9.1 Neutrophils % 95.0 H Lymphocytes % 1.0 L Monocytes % 2.0 L Band Neutrophils 2.0 D Sodium 141 Potassium 4.1 Chloride 96 L Carbon Dioxide 39 H Anion Gap 6 L BUN 36 H Creatinine 0.6 Creat Clearance w eGFR > 60 POC Glucometer [phone] Random Glucose 277 H D Lactic Acid Calcium 9.0 Phosphorus 3.5 Magnesium 1.8 Total Bilirubin 0.5 AST 9 L D ALT 20 D Alkaline Phosphatase 67 Troponin I Total Protein 5.2 L Albumin 2.0 L Active Medications Generic Name Dose Route Start Last Admin Trade Name Loli PRN Reason Stop Dose Admin Albuterol/Ipratropium 1 amp 08/09/16 14:00 08/10/16 14:17 Duoneb - NEB 1 amp TIDR MICHAEL Administration Apixaban 5 mg 08/09/16 22:00 08/10/16 09:22 Eliquis - PO 5 mg BID MICHAEL Administration Atorvastatin Calcium 10 mg 08/09/16 22:00 08/09/16 21:27 Lipitor - PO 10 mg HS MICHAEL Administration Chlorhexidine Gluconate 1 applic 08/09/16 22:00 08/09/16 21:27 Hibiclens For Decolonization - TP 1 applic HS MICHAEL Administration Furosemide 40 mg 08/10/16 10:00 08/10/16 09:22 Lasix Injection - IVPB 40 mg DAILY MICHAEL Administration Ceftriaxone Sodium 50 mls @ 100 mls/hr 08/10/16 14:45 Rocephin 1gm Ivpb (Pre-Docked) IVPB DAILY MICHAEL Methimazole 15 mg 08/09/16 22:00 08/10/16 13:32 Tapazole - PO 15 mg TID MICHAEL Administration Methylprednisolone Sodium Succinate 60 mg 08/10/16 10:15 Solu-Medrol - IVPB Q8H-IV MICHAEL Metoprolol Tartrate 5 mg 08/09/16 13:04 08/10/16 07:10 Lopressor Injection - IVPUSH 5 mg Q4H PRN Administration HYPERTENSION Mupirocin 1 applic 08/09/16 22:00 08/10/16 09:21 Bactroban Ointment (For Decolonization) - NS 08/14/16 21:59 1 applic BID MICHAEL Administration Nortriptyline HCl 30 mg 08/09/16 22:00 08/09/16 21:29 Pamelor - PO 30 mg HS MICHAEL Administration Bybwh-3-Lmhw Ethyl Esters 2 gm 08/09/16 22:00 08/10/16 09:22 Lovaza - PO 2 gm BID MICHAEL Administration Sotalol HCl 80 mg 08/09/16 22:00 08/10/16 08:00 Betapace - PO 80 mg BID MICHAEL Administration Valsartan 80 mg 08/10/16 10:00 08/10/16 09:22 Diovan - PO 80 mg DAILY MICHAEL Administration ASSESSMENT/PLAN: 86 year old female with a past medical history of NIDDM, COPD ( on home O2), HTN , HLD, GERD, nonobstructive CAD, early Parkinson's disease, diastolic dysfunction with h/o failure, paroxysmal atrial fibrillation, anemia, gastric AVM post cautery admitted to ICU for sepsis 2/2 PNA/UTI accompanied by AFIB with RVR requiring cardizem ggt and hypoxia requiring BiPaP. Neuro: * Awake and alert and anxious * will continue to monitor for any MS changes or focal neuro def. Pulmonary: * Currently on BiPaP will continue for now- re-evaluate in AM * Maintain O2 sat >90% * Albuterol/Ipratropium (Duoneb -) 1 amp NEB TID * Methylprednisolone Sodium Succinate (Solu-Medrol -) 40 mg IVPB Q8H-IV CV: CAD, CHF, Afib RVR * Seen by Dr. Tucker cardiology * Cardizem ggt stopped * Rhythm control-Sotalol 80 mg PO BID * AC-Apixaban 5 mg PO BID * CHF :Atorvastatin 10 mg PO HS * Furosemide (Lasix Injection -) 40 mg IVPB DAILY * Metoprolol Tartrate 5 mg IVPUSH Q4H PRN * Valsartan (Diovan -) 80 mg PO DAILY * Continue cardiac monitoring. ID:HAP and UTI * Piperacillin Sod/Tazobactam 3.375 gm IVPB Q8H-IV changed based (+) Pneumoccocal Antigen * Repeat CBC and CXR in AM ENDO: * ADA diet * ISS ACHS * BGM ACHS GI/DVT prophylaxis: * Eliquis 5mg PO BID * Protonix 40mg HS DISPO: Will continue to manage in ICU for Sepsis 2/2 UTI/PNA Visit type - Emergency Visit Emergency Visit: Yes ED Registration Date: 08/09/16 Care time: The patient presented to the Emergency Department on the above date and was hospitalized for further evaluation of their emergent condition. - New Patient This patient is new to me today: No - Critical Care Critical Care patient: Yes Total Critical Care Time (in minutes): 33 Critical Care Statement: The care of this patient involved high complexity decision making to prevent further life threatening deterioration of the patient 's condition and/or to evalute & treat vital organ system(s) failure or risk of failure.
[2016-08-10] MEDS: INSULIN SLIDING SCALE (NOVOLOG) 1 VIAL SQ SCH ×2 (16:26→22:13)
--- NOTE | 2016-08-10 16:59 | EKG ---
Test Reason : Blood Pressure : / mmHG Vent. Rate : 187 BPM Atrial Rate : 151 BPM P-R Int : 000 ms QRS Dur : 070 ms QT Int : 204 ms P-R-T Axes : 000 -10 131 degrees QTc Int : 360 ms POOR DATA QUALITY, INTERPRETATION MAY BE ADVERSELY AFFECTED ATRIAL FIBRILLATION WITH RAPID VENTRICULAR RESPONSE ABNORMAL ECG WHEN COMPARED WITH ECG OF 03-AUG-2016 06:36, ATRIAL FIBRILLATION HAS REPLACED SINUS RHYTHM VENT. RATE HAS INCREASED BY [address] NOW DEPRESSED IN LATERAL LEADS T WAVE INVERSION NOW EVIDENT IN LATERAL LEADS Confirmed by JULIENNE PANCHAL MD ([id number]) on 08/10/2016 4:59:12 PM Referred By: Confirmed By:JULIENNE PANCHAL MD
[2016-08-10] MEDS ORDERED: dilTIAZem HCL 50 MG/10 ML - 10 ML VIAL IVPUSH ONE ×3 (17:32→21:45)
[2016-08-10] MEDS ORDERED: dilTIAZem HCL 125 MG/25 ML - 25 ML VIAL ONE ×2 (17:33→18:02)
--- NOTE | 2016-08-10 18:07 | PN ---
Physical Exam: SUBJECTIVE: Patient seen and examined. c/o chest tenderness throughout her chest. nonradiating. feels her breathing is better than when she arrived. denies abdominal pain, cough. OBJECTIVE: Vital Signs Period Temp Pulse Resp BP Sys/Pinedo Pulse Ox Last 24 Hr 97.3 F-98.3 F 70-177 22-32 100-134/59-83 96-100 GENERAL: The patient is awake, alert, and fully oriented, NAD. HEAD: Normal with no signs of trauma. EYES: extraocular movements intact, sclera anicteric, conjunctiva clear. ENT: Ears normal, nares patent, on bipap. NECK: Trachea midline, full range of motion, supple. LUNGS: b/l wheezing. tachypneic HEART: afib - rate controlled. s1, s2 ABDOMEN: Soft, nontender, nondistended, normoactive bowel sounds, EXTREMITIES:faint pulses, warm, well-perfused, no edema. no calf tenderness NEUROLOGICAL: Normal speech, gait not observed. PSYCH: Normal mood, normal affect. SKIN: Warm, dry, normal turgor, no rashes or lesions noted Laboratory Results - last 24 hr 08/09/16 08/09/16 08/10/16 17:30 20:00 05:05 WBC 20.0 H RBC 4.43 Hgb 9.4 L D Hct 31.4 L MCV 70.7 L MCHC 29.9 L RDW 27.9 H Plt Count 199 MPV 9.1 Neutrophils % 95.0 H Lymphocytes % 1.0 L Monocytes % 2.0 L Band Neutrophils 2.0 D Sodium Potassium Chloride Carbon Dioxide Anion Gap BUN Creatinine Creat Clearance w eGFR POC Glucometer Random Glucose Lactic Acid 1.741 Calcium Phosphorus Magnesium Total Bilirubin AST ALT Alkaline Phosphatase Troponin I 0.03 Total Protein Albumin 08/10/16 08/10/16 08/10/16 05:05 12:02 16:26 WBC RBC Hgb Hct MCV MCHC RDW Plt Count MPV Neutrophils % Lymphocytes % Monocytes % Band Neutrophils Sodium 141 Potassium 4.1 Chloride 96 L Carbon Dioxide 39 H Anion Gap 6 L BUN 36 H Creatinine 0.6 Creat Clearance w eGFR > 60 POC Glucometer [phone] Random Glucose 277 H D Lactic Acid Calcium 9.0 Phosphorus 3.5 Magnesium 1.8 Total Bilirubin 0.5 AST 9 L D ALT 20 D Alkaline Phosphatase 67 Troponin I Total Protein 5.2 L Albumin 2.0 L Active Medications Generic Name Dose Route Start Last Admin Trade Name Freq PRN Reason Stop Dose Admin Albuterol/Ipratropium 1 amp 08/09/16 14:00 08/10/16 14:17 Duoneb - NEB 1 amp TIDR MICHAEL Administration Apixaban 5 mg 08/09/16 22:00 08/10/16 09:22 Eliquis - PO 5 mg BID MICHAEL Administration Atorvastatin Calcium 10 mg 08/09/16 22:00 08/09/16 21:27 Lipitor - PO 10 mg HS MICHAEL Administration Chlorhexidine Gluconate 1 applic 08/09/16 22:00 08/09/16 21:27 Hibiclens For Decolonization - TP 1 applic HS MICHAEL Administration Furosemide 40 mg 08/10/16 10:00 08/10/16 09:22 Lasix Injection - IVPB 40 mg DAILY MICHAEL Administration Ceftriaxone Sodium 50 mls @ 100 mls/hr 08/10/16 14:45 08/10/16 14:47 Rocephin 1gm Ivpb (Pre-Docked) IVPB 100 mls/hr DAILY MICHAEL Administration Insulin Aspart 1 vial 08/10/16 16:30 08/10/16 16:26 Novolog Vial Sliding Scale - SQ 10 units ACHS MICHAEL Administration Protocol Methimazole 15 mg 08/09/16 22:00 08/10/16 13:32 Tapazole - PO 15 mg TID MICHAEL Administration Methylprednisolone Sodium Succinate 60 mg 08/10/16 10:15 08/10/16 17:20 Solu-Medrol - IVPB 60 mg Q8H-IV MICHAEL Administration Metoprolol Tartrate 5 mg 08/09/16 13:04 08/10/16 17:20 Lopressor Injection - IVPUSH 5 mg Q4H PRN Administration HYPERTENSION Mupirocin 1 applic 08/09/16 22:00 08/10/16 09:21 Bactroban Ointment (For Decolonization) - NS 08/14/16 21:59 1 applic BID MICHAEL Administration Nortriptyline HCl 30 mg 08/09/16 22:00 08/09/16 21:29 Pamelor - PO 30 mg HS MICHAEL Administration Waqrb-8-Vvkb Ethyl Esters 2 gm 08/09/16 22:00 08/10/16 09:22 Lovaza - PO 2 gm BID MICHAEL Administration Sotalol HCl 80 mg 08/10/16 22:00 Betapace - PO TID MICHAEL Valsartan 80 mg 08/10/16 10:00 08/10/16 09:22 Diovan - PO 80 mg DAILY MICHAEL Administration ASSESSMENT/PLAN: 86 yr old woman with multiple co-morbidities BIBEMS from [facility] for difficulty breathing, was found to be in rapid Afib in the ED admitted for sepsis likely from pna, rapid Afib, and hypoxia/respiratory distress. #Sepsis secondary to legionella(pos urine) - rocephin 1gm iv daily #Afib - improving, rate controlled. likely triggered by infection - sotalol 80mg po bid - abixapan 5mg po bid - eliquis 5mg po bid #Respiratory distress/hypoxia - improved with Bipap - duonebs TID prn - solumedrol 40mg IVPB q8 #DM - novolog sliding scale - BGM ACHS #HTN/CHF - metoprolol tart 5mg IVPush q4h prn - diovan 80m g po daily - lasix 40mg IVPB #CAD - atorvastatin 10mg HS po #Hyperthyroidism -methiazole 15mg po TID #Diet: diabetic/low sodium #DVT prophylaxis - on anticoagulation Visit type - Emergency Visit Emergency Visit: No - New Patient This patient is new to me today: No - Critical Care Critical Care patient: Yes Total Critical Care Time (in minutes): 33 Critical Care Statement: The care of this patient involved high complexity decision making to prevent further life threatening deterioration of the patient 's condition and/or to evalute & treat vital organ system(s) failure or risk of failure.
[2016-08-10] MEDS: DILTIAZEM INJECTION 125 MG in DEXTROSE 5%-WATER - 100 ML IVPB SCH (19:00)
[2016-08-10] MEDS ORDERED: dilTIAZem HCL 125 MG/25 ML - 5 ML VIAL ONE (19:00)
[2016-08-10] MEDS ORDERED: morphine CARPU-JECT 2 MG/1 ML DISP.SYRIN ONE (20:30)
[2016-08-10] MEDS ORDERED: morphine CARPU-JECT 2 MG/1 ML DISP.SYRIN IVPUSH ONE (20:33)
[2016-08-10 20:52] LABS: ALLENS TEST POSITIVE; ART PUNCT SITE RIGHT RADIAL; ARTERIAL BLD GAS O2 SATURATION 95.3 % (90-98.9); ARTERIAL BLOOD GAS HCO3 42.8 meq/L (22-26); ARTERIAL BLOOD GAS PO2 76.4 mmHg (68-100); ARTERIAL BLOOD GAS pH 7.47 (7.35-7.45); PT. ON O2? YES
[2016-08-10 20:54] LABS: ARTERIAL BLOOD GAS BASE EXCESS 16.6 meq/l (-2-2); LPM/O2% 40%; MECH. VENT. Y; TYPE OF O2 BIPAP; VENT RATE 14; VT/PRESS 12
[2016-08-10] MEDS: CHLORHEXIDINE GLUCONATE 4% CLEANSER FOR DECOLONIZATION TP SCH (21:36)
[2016-08-10] MEDS: ATORVASTATIN CA 10 MG TABLET (FP) PO SCH (21:42)
[2016-08-10] MEDS: NORTRIPTYLINE HCL 10 MG CAPSULE PO SCH (21:43)
[2016-08-10 21:45] LABS: ALBUMIN 2.2 g/dl (3.4-5.0); ANION GAP 7 (8-16); BILIRUBIN,TOTAL 0.3 mg/dL (0.2-1.0); CO2 42 mmol/L (21-32); CREATININE 0.6 mg/dL (0.55-1.02); GLUCOSE,RANDOM 221 mg/dL (74-106); SGOT/AST 8 U/L (15-37); SGPT/ALT 21 U/L (12-78); TOT PROT 5.8 g/dl (6.4-8.2)
[2016-08-10] MEDS ORDERED: SOTALOL HCL 80 MG TABLET (FP) PO ONE (21:45)
[2016-08-10] MEDS ORDERED: FUROSEMIDE 40 MG/4 ML INJECTABLE VIAL IVPUSH ONE (21:45)
[2016-08-10 21:47] LABS: ALK PHOS 86 U/L (45-117); TROPONIN I 0.02 ng/ml (0.00-0.05)
[2016-08-10] MEDS ORDERED: SOTALOL HCL 80 MG TABLET (FP) PO SCH (22:00)
[2016-08-11] MEDS: methylPREDNISolone NA SUCC 40 MG/1 ML VIAL IVPB SCH ×4 (02:18→22:00)
[2016-08-11 06:20] LABS: MCHC 29.6 g/dl (32.0-36.0); MEAN CELL VOLUME 70.9 fl (80-96); MEAN PLT VOLUME 8.9 fl (7.5-11.1); PLATELET COUNT 243 K/MM3 (134-434); WHITE BLOOD COUNT 25.5 K/mm3 (4.0-10.0)
[2016-08-11] MEDS: ALBUTEROL SO4 2.5/IPRATROPIUM 0.5 INH SOL 3 ML VIAL.NEB. NEB SCH ×3 (06:33→22:00)
[2016-08-11] MEDS ORDERED: PT OWN MED DRAWER 7, Y5N ONE ×4 (06:37→19:42)
[2016-08-11 06:39] LABS: ANION GAP 5 (8-16); BILIRUBIN,TOTAL 0.2 mg/dL (0.2-1.0); CALCIUM 8.6 mg/dL (8.5-10.1); CO2 44 mmol/L (21-32); CREATININE 0.7 mg/dL (0.55-1.02); GLUCOSE,RANDOM 196 mg/dL (74-106); MAGNESIUM 1.7 mg/dL (1.8-2.4); PHOSPHOROUS 3.5 mg/dL (2.5-4.9); SGOT/AST 9 U/L (15-37); SGPT/ALT 19 U/L (12-78); TOT PROT 5.5 g/dl (6.4-8.2)
[2016-08-11 06:42] LABS: ALK PHOS 78 U/L (45-117)
[2016-08-11 06:47] LABS: TROPONIN I 0.02 ng/ml (0.00-0.05)
[2016-08-11] MEDS: INSULIN SLIDING SCALE (NOVOLOG) 1 VIAL SQ SCH ×3 (07:23→16:31)
[2016-08-11] MEDS: METHIMAZOLE 5 MG TABLET (FP) PO SCH ×3 (07:23→21:53)
--- NOTE | 2016-08-11 07:33 | PN ---
Progress Note, Physician Chief Complaint: ID Consult dictated Ceftriaxone Dyspneic Lethargic since yesterday ( ? morphine) Afebrile Had chest pain overnight History of Present Illness: ID Currently on Ceftriaxone per Dr Powell Dyspneic - Current Medication List Current Medications: Active Medications Albuterol Sulfate (Ventolin 0.083% Nebulizer Soln -) 1 amp NEB Q4H PRN PRN Reason: SHORT OF BREATH/WHEEZING Albuterol/Ipratropium (Duoneb -) 1 amp NEB TIDR [facility] Last Admin: 08/11/16 06:33 Dose: 1 amp Apixaban (Eliquis -) 5 mg PO BID [facility] Last Admin: 08/10/16 21:43 Dose: 5 mg Atorvastatin Calcium (Lipitor -) 10 mg PO HS [facility] Last Admin: 08/10/16 21:42 Dose: 10 mg Chlorhexidine Gluconate (Hibiclens For Decolonization -) 1 applic TP HS [facility] Last Admin: 08/10/16 21:36 Dose: 1 applic Furosemide (Lasix Injection -) 40 mg IVPB DAILY [facility] Last Admin: 08/10/16 09:22 Dose: 40 mg Ceftriaxone Sodium (Rocephin 1gm Ivpb (Pre-Docked)) 50 mls @ 100 mls/hr IVPB DAILY [facility] Last Admin: 08/10/16 14:47 Dose: 100 mls/hr Diltiazem HCl 125 mg/ Dextrose 125 mls @ 5 mls/hr IVPB TITR MICHAEL; 5 MG/HR PRN Reason: Protocol Last Titration: 08/11/16 02:22 Dose: 0 mg/hr Insulin Aspart (Novolog Vial Sliding Scale -) 1 vial SQ ACHS MICHAEL PRN Reason: Protocol Last Admin: 08/10/16 22:13 Dose: 6 units Methimazole (Tapazole -) 15 mg PO TID [facility] Last Admin: 08/10/16 21:42 Dose: 15 mg Methylprednisolone Sodium Succinate (Solu-Medrol -) 60 mg IVPB Q8H-IV [facility] Last Admin: 08/11/16 02:18 Dose: 60 mg Metoprolol Tartrate (Lopressor Injection -) 5 mg IVPUSH Q4H PRN PRN Reason: HYPERTENSION Last Admin: 08/10/16 17:20 Dose: 5 mg Mupirocin (Bactroban Ointment (For Decolonization) -) 1 applic NS BID [facility] Stop: 08/14/16 21:59 Last Admin: 08/10/16 21:36 Dose: 1 applic Nortriptyline HCl (Pamelor -) 30 mg PO HS [facility] Last Admin: 08/10/16 21:43 Dose: 30 mg Symgn-2-Jojx Ethyl Esters (Lovaza -) 2 gm PO BID [facility] Last Admin: 08/10/16 21:41 Dose: 2 gm Sotalol HCl (Betapace -) 120 mg PO BID [facility] Valsartan (Diovan -) 80 mg PO DAILY [facility] Last Admin: 08/10/16 09:22 Dose: 80 mg - Objective Vital Signs: Vital Signs Temperature 98 F 08/11/16 03:00 Pulse Rate 73 08/11/16 07:00 Respiratory Rate 20 08/11/16 07:00 Blood Pressure 120/65 08/11/16 07:00 O2 Sat by Pulse Oximetry (%) 97 08/11/16 06:58 Constitutional: Yes: Mild Distress, Other (Lewthargic) Cardiovascular: Yes: Pulse Irregular, S1, S2 Respiratory: Yes: Other (Decreased left base) Gastrointestinal: Yes: Soft. No: Tenderness Edema: No Labs: CBC, BMP 08/11/16 05:35 08/11/16 05:35 INR, PTT INR 1.17 (0.82-1.09) H 08/09/16 09:30 Problem List - Problems (1) Atrial fibrillation with rapid ventricular response Code(s): I48.91 - UNSPECIFIED ATRIAL FIBRILLATION (2) Sepsis Code(s): A41.9 - SEPSIS, UNSPECIFIED ORGANISM Qualifiers: Sepsis type: sepsis due to unspecified organism Qualified Code(s): A41.9 - Sepsis, unspecified organism (3) Pneumococcal pneumonia Code(s): J13 - PNEUMONIA DUE TO STREPTOCOCCUS PNEUMONIAE Assessment/Plan Microbiology 08/10/16 12:16 Urine For Antigen Detection Legionella Antigen - Final 08/10/16 12:16 Urine For Antigen Detection Streptococcus pneumoniae Antigen (M - Final 08/10/16 12:15 Nasopharyngeal Swab Influenza Types A,B Antigen (MATEUS) - Final 08/10/16 12:15 Nasopharyngeal Swab - Final 08/09/16 09:48 Urine - Urine - Catheterized Urine Culture - Final NO GROWTH OBTAINED 08/09/16 09:30 Blood - Peripheral Venous Blood Culture - Preliminary NO GROWTH OBTAINED AFTER 24 HOURS, INCUBATION TO CONTINUE FOR 4 DAYS. 08/09/16 08:30 Blood - Peripheral Venous Blood Culture - Preliminary NO GROWTH OBTAINED AFTER 24 HOURS, INCUBATION TO CONTINUE FOR 4 DAYS. Laboratory Tests 08/09/16 08/10/16 08/10/16 09:48 05:05 20:50 WBC Hgb Hct Plt Count Neutrophils % 95.0 H Lymphocytes % 1.0 L Monocytes % 2.0 L ABG pH 7.47 H ABG pCO2 at Pt Temp 58.9 H ABG pO2 at Pt Temp 76.4 Oxygen Flow Rate 40% BUN Creatinine Creat Clearance w eGFR Total Bilirubin AST ALT Alkaline Phosphatase Total Protein Albumin Urine RBC 579 Urine WBC 10 08/11/16 08/11/16 05:35 05:35 WBC 25.5 H Hgb 10.0 L Hct 33.6 Plt Count 243 D Neutrophils % Lymphocytes % Monocytes % ABG pH ABG pCO2 at Pt Temp ABG pO2 at Pt Temp Oxygen Flow Rate BUN 43 H D Creatinine 0.7 Creat Clearance w eGFR > 60 Total Bilirubin 0.2 D AST 9 L ALT 19 Alkaline Phosphatase 78 Total Protein 5.5 L Albumin 2.0 L Urine RBC Urine WBC Assessment Elderly female with multiple comorbities presents with rapid Atrial fibrillation chest pain sepsis Pneumonia positive pneumococcal antigen noted on Ceftriaxone appropriate as per Dr Powell. Concern is rising WBC count She is now on steroids The question of an empyema and a CT scan considered to be Discussed with Dr Powell For now continue Ceftriaxone as ordered OBtain CRP for interest to see if very high [place]on B[place]
--- NOTE | 2016-08-11 08:29 | MSN ---
Progress Note (SOAP) - Subjective Chief Complaint: SOB History of Present Illness: Patient was interviewed at bedside. Patient only speaks south af[place]. When asked question she would only nod yes or no. When Asked if she could talk she made an indecernible sound, then started answering "Si" or "No". Patient complained of pains throughout her body. She was not very specific. about how the pain felt just that she had pain. She had pain to palpation in the chest and abdomen. - Current Medications Current Medications: Active Medications Albuterol Sulfate (Ventolin 0.083% Nebulizer Soln -) 1 amp NEB Q4H PRN PRN Reason: SHORT OF BREATH/WHEEZING Albuterol/Ipratropium (Duoneb -) 1 amp NEB TIDR [facility] Last Admin: 08/11/16 06:33 Dose: 1 amp Apixaban (Eliquis -) 5 mg PO BID [facility] Last Admin: 08/10/16 21:43 Dose: 5 mg Atorvastatin Calcium (Lipitor -) 10 mg PO HS [facility] Last Admin: 08/10/16 21:42 Dose: 10 mg Chlorhexidine Gluconate (Hibiclens For Decolonization -) 1 applic TP HS [facility] Last Admin: 08/10/16 21:36 Dose: 1 applic Furosemide (Lasix Injection -) 40 mg IVPB DAILY [facility] Last Admin: 08/10/16 09:22 Dose: 40 mg Ceftriaxone Sodium (Rocephin 1gm Ivpb (Pre-Docked)) 50 mls @ 100 mls/hr IVPB DAILY [facility] Last Admin: 08/10/16 14:47 Dose: 100 mls/hr Diltiazem HCl 125 mg/ Dextrose 125 mls @ 5 mls/hr IVPB TITR MICHAEL; 5 MG/HR PRN Reason: Protocol Last Titration: 08/11/16 02:22 Dose: 0 mg/hr Insulin Aspart (Novolog Vial Sliding Scale -) 1 vial SQ ACHS MICHAEL PRN Reason: Protocol Last Admin: 08/11/16 07:23 Dose: 4 units Methimazole (Tapazole -) 15 mg PO TID [facility] Last Admin: 08/11/16 07:23 Dose: 15 mg Methylprednisolone Sodium Succinate (Solu-Medrol -) 60 mg IVPB Q8H-IV [facility] Last Admin: 08/11/16 02:18 Dose: 60 mg Metoprolol Tartrate (Lopressor Injection -) 5 mg IVPUSH Q4H PRN PRN Reason: HYPERTENSION Last Admin: 08/10/16 17:20 Dose: 5 mg Mupirocin (Bactroban Ointment (For Decolonization) -) 1 applic NS BID [facility] Stop: 08/14/16 21:59 Last Admin: 08/10/16 21:36 Dose: 1 applic Nortriptyline HCl (Pamelor -) 30 mg PO HS [facility] Last Admin: 08/10/16 21:43 Dose: 30 mg Uycww-7-[id number] Ethyl Esters (Lovaza -) 2 gm PO BID [facility] Last Admin: 08/10/16 21:41 Dose: 2 gm Sotalol HCl (Betapace -) 120 mg PO BID [facility] Valsartan (Diovan -) 80 mg PO DAILY [facility] Last Admin: 08/10/16 09:22 Dose: 80 mg - Objective Vital Signs: Vital Signs Temperature 98 F 08/11/16 03:00 Pulse Rate 73 08/11/16 07:00 Respiratory Rate 20 08/11/16 07:00 Blood Pressure 120/65 08/11/16 07:00 O2 Sat by Pulse Oximetry (%) 97 08/11/16 06:58 Constitutional: Yes: Calm, Mild Distress, Thin Eyes: Yes: WNL, Conjunctiva Clear, EOM Intact HENT: Yes: WNL, Atraumatic, Normocephalic Neck: Yes: WNL, Supple, Trachea Midline Cardiovascular: Yes: Pulse Irregular, S1, S2 Respiratory: Yes: On Venti-Mask, Rhonchi Gastrointestinal: Yes: Normal Bowel Sounds, Soft Musculoskeletal: Yes: WNL, Muscle Weakness Peripheral Pulses WNL: Yes Peripheral Pulses: Left Radial: 2+, Right Radial: 2+, Left Doralis Pedis: 2+, Right Dorsalis Pedis: 2+ Edema: Yes Edema: LLE: 1+, RLE: 1+ Integumentary: Yes: WNL Neurological: Yes: Lethargy, Weakness Psychiatric: Yes: Other (difficult to assesss mental status due to weakenss) Labs Lab Results: CBC, BMP 08/11/16 05:35 08/11/16 05:35 Assessment/Plan 86 yr old woman with multiple co-morbidities BIBEMS from [email or web address] for difficulty breathing, was found to be in rapid Afib in the ED admitted for sepsis likely from pna, rapid Afib, and hypoxia/respiratory distress. Sepsis -empiric antibiotics to cover health care acquired organisms -f/u cultures, narrow coverage pending sensitivities -f/u flu swab, urinary antigens -continue sotalol for rate/rhythm control -continue anticoagulation -BiPAP as needed to assist in work of breathing -continue empiric steroids -inhaled bronchodilators -monitor urine output, creatinine -NPO -DVT/GI prophylaxis A. fib -sotalol 80mg po bid -abixapan 5mg po bid Respiratory distress/hypoxia - improved with Bipap -duonebs TID prn -solumedrol 40mg IVPB q8 DM -SSI HTN/CHF - metoprolol - lasix 40mg CAD -atorvastatin 10mg HS po Hyperthyroidism -methiazole
--- NOTE | 2016-08-11 08:51 | CONS ---
DATE OF CONSULTATION: DATE OF DICTATION: 08/11/2016 HISTORY OF PRESENT ILLNESS: This is an 86-year-old female from [facility] brought with chief complaint of respiratory distress and rapid atrial fibrillation. EMS was called. On arrival, the patient was minimally responsive. She had to be given a non-rebreather mask with low O2 saturations in the 90s and a respiratory rate of 33. She was also noted to be febrile to 102. Empiric antibiotics were initiated, and I am currently asked to see her regarding further antibiotic management. Blood cultures showed no growth, and a urine pneumococcal antigen was positive. The patient has a history of COPD as well as diabetes mellitus. Last night, she apparently experienced an episode of chest pain. She has been on corticosteroids for wheezing noted previously. Her white count 21,000 on admission is now 25,000. Currently, she is lethargic, but able to answer some questions. She appears weak and in mild to moderate respiratory distress. PAST MEDICAL HISTORY: Hypertension, hyperlipidemia, coronary artery disease, atrial fibrillation, COPD, and a left femur fracture with pinning and right elbow fracture. MEDICATIONS AT HOME: Include metformin, Lyrica, albuterol, aspirin, Lexapro, Protonix, Mirapex, Pamelor, atorvastatin, iron, Eliquis, sotalol, insulin, Tapazole. ALLERGIES: None known. SOCIAL HISTORY: A former smoker, she gave this up many years ago. No history of alcoholism. She lives in a intermediate FAMILY HISTORY: Unobtainable. REVIEW OF SYSTEMS: Respiratory: Shortness of breath. No cough noted. Cardiac: Chest pain overnight. No palpitations, syncope, history of murmur. Gastrointestinal: No abdominal pain, nausea, vomiting, diarrhea. Genitourinary: No dysuria, hematuria, urinary frequency. Neuromuscular: No history of headaches, seizures. PHYSICAL EXAMINATION: General: She was a frail lethargic female in mild respiratory distress, breathing 26 times a minute. Vital signs: Blood pressure 104/61, O2 saturation 97% on 50% oxygen VentiMask, temperature ____, pulse 74. HEENT: The neck was supple without adenopathy. Lungs: With diminished breath sounds at the left base, a few rhonchi. Heart: S1, S2, irregularly irregular rhythm without audible murmur. Abdomen: Soft, nontender, without hepatosplenomegaly. No guarding or rebound. Extremities: Without clubbing, cyanosis, or edema. DIAGNOSTIC DATA: The white count initially was 21.8 and is now 26,000, hemoglobin 10, platelets 243, MCV of 70, 95% neutrophils. INR 1.17. ABG 7.4, 759, 76 on a 40% BiPAP mask dated August 10. BUN 43, creatinine 0.7. Liver functions within normal limits. Total protein 5.5, albumin 2.0. Urinalysis 579 RBCs with 10 WBCs, trace leukocyte esterase. Cultures of blood and urine. Negative influenza screening. Chest x-ray was reviewed and demonstrates a left pleural effusion with some atelectasis per x-ray report. ASSESSMENT: An 86-year-old female with multiple comorbidities including diabetes, COPD, and rapid atrial fibrillation, presents with respiratory distress, sepsis syndrome, and positive pneumococcal antigen consistent with a diagnosis of pneumococcal pneumonia. She has a pleural effusion, and with her elevated WBC count, despite being on steroids, the question comes up as to whether or not she may have a small empyema. She is both elderly and frail. The case was discussed with the primary medical doctor regarding need for possible CT scan of the chest and thoracentesis. Will await Dr. Ochoa reevaluation on this point later today. For now, continue ceftriaxone as ordered, obtain a CRP. CHICA VAN M.D. [id number]
[2016-08-11] MEDS: OMEGA-3 ACID ETHYL ESTERS (FATTY-ACIDS) 1 GM CAPSULE (FP) PO SCH ×2 (09:39→21:53)
[2016-08-11] MEDS: SOTALOL HCL 80 MG TABLET (FP) PO SCH ×2 (09:39→22:44)
[2016-08-11] MEDS: MUPIROCIN 2% TOPICAL OINTMENT FOR DECOLONIZATION NS SCH ×2 (09:39→21:52)
[2016-08-11] MEDS: FUROSEMIDE 40 MG/4 ML INJECTABLE VIAL IVPB SCH (09:39)
[2016-08-11] MEDS: VALSARTAN 80 MG TABLET (UD) PO SCH (09:40)
[2016-08-11] MEDS: CEFTRIAXONE 50 ML IVPB SCH (09:41)
--- NOTE | 2016-08-11 09:41 | PN ---
Teaching Attending Note Name of Resident: Deon Starks ATTENDING PHYSICIAN STATEMENT I saw and evaluated the patient. I reviewed the resident's note and discussed the case with the resident. I agree with the resident's findings and plan as documented. SUBJECTIVE: In ICU Patient is feeling better, improved from yesterday , no labored breathing today. Overnight events noted. Patietn desaturated and was placed on Bipap. OBJECTIVE: Vital Signs Temperature 97.8 F 08/11/16 08:00 Pulse Rate 71 08/11/16 08:00 Respiratory Rate 20 08/11/16 08:00 Blood Pressure 122/72 08/11/16 08:00 O2 Sat by Pulse Oximetry (%) 94 L 08/11/16 08:00 GENERAL: The patient is awake, alert, and fully oriented, with moderate distress HEAD: Normal with no signs of trauma. EYES: extraocular movements intact, sclera anicteric, conjunctiva clear. ENT: Ears normal, nares patent, on bipap. NECK: Trachea midline, full range of motion, supple. LUNGS: b/l wheezing. tachypneic HEART:Irregularly irregular ,rate controled now,s1s2 positive, MANISHA 2/6 ABDOMEN: Soft, nontender, nondistended, normoactive bowel sounds, EXTREMITIES:faint pulses, warm, no edema. no calf tenderness NEUROLOGICAL: Normal speech, gait not observed. PSYCH: Normal mood, normal affect. SKIN: Warm, dry, normal turgor, no rashes or lesions noted CBCD WBC 25.5 K/mm3 (4.0-10.0) H 08/11/16 05:35 RBC 4.74 M/mm3 (3.60-5.2) 08/11/16 05:35 Hgb 10.0 GM/dL (10.7-15.3) L 08/11/16 05:35 Hct 33.6 % (32.4-45.2) 08/11/16 05:35 MCV 70.9 fl (80-96) L 08/11/16 05:35 MCHC 29.6 g/dl (32.0-36.0) L 08/11/16 05:35 RDW 28.0 % (11.6-15.6) H 08/11/16 05:35 Plt Count 243 K/MM3 (134-434) D 08/11/16 05:35 MPV 8.9 fl (7.5-11.1) 08/11/16 05:35 CMP Sodium 147 mmol/L (136-145) H 08/11/16 05:35 Potassium 3.7 mmol/L (3.5-5.1) 08/11/16 05:35 Chloride 98 mmol/L (98-107) 08/11/16 05:35 Carbon Dioxide 44 mmol/L (21-32) H 08/11/16 05:35 Anion Gap 5 (8-16) L 08/11/16 05:35 BUN 43 mg/dL (7-18) H D 08/11/16 05:35 Creatinine 0.7 mg/dL (0.55-1.02) 08/11/16 05:35 Creat Clearance w eGFR > 60 (>60) 08/11/16 05:35 Random Glucose 196 mg/dL (74-106) H 08/11/16 05:35 Calcium 8.6 mg/dL (8.5-10.1) 08/11/16 05:35 Total Bilirubin 0.2 mg/dL (0.2-1.0) D 08/11/16 05:35 AST 9 U/L (15-37) L 08/11/16 05:35 ALT 19 U/L (12-78) 08/11/16 05:35 Alkaline Phosphatase 78 U/L (45-117) 08/11/16 05:35 Total Protein 5.5 g/dl (6.4-8.2) L 08/11/16 05:35 Albumin 2.0 g/dl (3.4-5.0) L 08/11/16 05:35 CARDIAC ENZYMES Creatine Kinase 19 IU/L (26-192) L 08/11/16 05:35 Troponin I 0.02 ng/ml (0.00-0.05) 08/11/16 05:35 Current Medications Generic Name Dose Route Start Last Admin Trade Name Freq PRN Reason Stop Dose Admin Albuterol Sulfate 1 amp 08/10/16 20:31 Ventolin 0.083% Nebulizer Soln - NEB Q4H PRN SHORT OF BREATH/WHEEZING Albuterol/Ipratropium 1 amp 08/09/16 14:00 08/11/16 06:33 Duoneb - NEB 1 amp TIDR MICHAEL Administration Apixaban 5 mg 08/09/16 22:00 08/10/16 21:43 Eliquis - PO 5 mg BID MICHAEL Administration Atorvastatin Calcium 10 mg 08/09/16 22:00 08/10/16 21:42 Lipitor - PO 10 mg HS MICHAEL Administration Chlorhexidine Gluconate 1 applic 08/09/16 22:00 08/10/16 21:36 Hibiclens For Decolonization - TP 1 applic HS MICHAEL Administration Furosemide 40 mg 08/10/16 10:00 08/10/16 09:22 Lasix Injection - IVPB 40 mg DAILY MICHAEL Administration Ceftriaxone Sodium 50 mls @ 100 mls/hr 08/10/16 14:45 08/10/16 14:47 Rocephin 1gm Ivpb (Pre-Docked) IVPB 100 mls/hr DAILY MICHAEL Administration Diltiazem HCl 125 mg/ Dextrose 125 mls @ 5 mls/hr 08/10/16 19:00 08/11/16 02:22 IVPB 0 mg/hr TITR MICHAEL Titration Protocol 5 MG/HR Insulin Aspart 1 vial 08/10/16 16:30 08/11/16 07:23 Novolog Vial Sliding Scale - SQ 4 units ACHS MICHAEL Administration Protocol Methimazole 15 mg 08/09/16 22:00 08/11/16 07:23 Tapazole - PO 15 mg TID MICHAEL Administration Methylprednisolone Sodium Succinate 60 mg 08/10/16 10:15 08/11/16 02:18 Solu-Medrol - IVPB 60 mg Q8H-IV MICHAEL Administration Metoprolol Tartrate 5 mg 08/09/16 13:04 08/10/16 17:20 Lopressor Injection - IVPUSH 5 mg Q4H PRN Administration HYPERTENSION Mupirocin 1 applic 08/09/16 22:00 08/10/16 21:36 Bactroban Ointment (For Decolonization) - NS 08/14/16 21:59 1 applic BID MICHAEL Administration Nortriptyline HCl 30 mg 08/09/16 22:00 08/10/16 21:43 Pamelor - PO 30 mg HS MICHAEL Administration Jilfr-3-Btjw Ethyl Esters 2 gm 08/09/16 22:00 08/10/16 21:41 Lovaza - PO 2 gm BID MICHAEL Administration Sotalol HCl 120 mg 08/11/16 10:00 Betapace - PO BID MICHAEL Valsartan 80 mg 08/10/16 10:00 08/10/16 09:22 Diovan - PO 80 mg DAILY MICHAEL Administration Current Medications Generic Name Dose Route Start Last Admin Trade Name Freq PRN Reason Stop Dose Admin Albuterol Sulfate 1 amp 08/10/16 20:31 Ventolin 0.083% Nebulizer Soln - NEB Q4H PRN SHORT OF BREATH/WHEEZING Albuterol/Ipratropium 1 amp 08/09/16 14:00 08/11/16 06:33 Duoneb - NEB 1 amp TIDR MICHAEL Administration Apixaban 5 mg 08/09/16 22:00 08/10/16 21:43 Eliquis - PO 5 mg BID MICHAEL Administration Atorvastatin Calcium 10 mg 08/09/16 22:00 08/10/16 21:42 Lipitor - PO 10 mg HS MICHAEL Administration Chlorhexidine Gluconate 1 applic 08/09/16 22:00 08/10/16 21:36 Hibiclens For Decolonization - TP 1 applic HS MICHAEL Administration Furosemide 40 mg 08/10/16 10:00 08/10/16 09:22 Lasix Injection - IVPB 40 mg DAILY MICHAEL Administration Ceftriaxone Sodium 50 mls @ 100 mls/hr 08/10/16 14:45 08/10/16 14:47 Rocephin 1gm Ivpb (Pre-Docked) IVPB 100 mls/hr DAILY MICHAEL Administration Diltiazem HCl 125 mg/ Dextrose 125 mls @ 5 mls/hr 08/10/16 19:00 08/11/16 02:22 IVPB 0 mg/hr TITR MICHAEL Titration Protocol 5 MG/HR Insulin Aspart 1 vial 08/10/16 16:30 08/11/16 07:23 Novolog Vial Sliding Scale - SQ 4 units ACHS MICHAEL Administration Protocol Methimazole 15 mg 08/09/16 22:00 08/11/16 07:23 Tapazole - PO 15 mg TID MICHAEL Administration Methylprednisolone Sodium Succinate 60 mg 08/10/16 10:15 08/11/16 02:18 Solu-Medrol - IVPB 60 mg Q8H-IV MICHAEL Administration Metoprolol Tartrate 5 mg 08/09/16 13:04 08/10/16 17:20 Lopressor Injection - IVPUSH 5 mg Q4H PRN Administration HYPERTENSION Mupirocin 1 applic 08/09/16 22:00 08/10/16 21:36 Bactroban Ointment (For Decolonization) - NS 08/14/16 21:59 1 applic BID MICHAEL Administration Nortriptyline HCl 30 mg 08/09/16 22:00 08/10/16 21:43 Pamelor - PO 30 mg HS MICHAEL Administration Qxixz-6-Edsp Ethyl Esters 2 gm 08/09/16 22:00 08/10/16 21:41 Lovaza - PO 2 gm BID MICHAEL Administration Sotalol HCl 120 mg 08/11/16 10:00 Betapace - PO BID MICHAEL Valsartan 80 mg 08/10/16 10:00 08/10/16 09:22 Diovan - PO 80 mg DAILY MICHAEL Administration Medication Instructions Recorded Tiotropium [place] [Spiriva] 1 inh PO BID 07/19/14 Roflumilast [Daliresp -] 500 mcg PO DAILY #30 tablet 07/21/14 Metformin HCl 500 mg PO DAILY 05/09/15 Pregabalin [Lyrica -] 75 mg PO BID 05/09/15 Albuterol 0.083% Nebulizer Lisa 1 neb NEB BID 12/01/15 [Ventolin 0.083% Nebulizer Soln -] Aspirin [ASA -] 81 mg PO DAILY 04/18/16 Calcium Carbonate [Calcium] 500 mg PO BID 04/18/16 Escitalopram Oxalate [Lexapro -] 10 mg PO BID 04/18/16 Pantoprazole Sodium [Protonix] 40 mg PO DAILY 04/18/16 Pramipexole Di-HCl [Mirapex] 0.5 mg PO HS 04/18/16 Sucralfate [Carafate] 1 gm PO BID 04/18/16 Marathon-3 Acid Ethyl Esters [Lovaza 2 gm PO BID cap 04/21/16 -] Benzonatate [Tessalon Perle -] 200 mg PO BID 05/04/16 Levalbuterol Tartrate [Xopenex Hfa] 15 gm IH DAILY PRN 05/04/16 Nortriptyline HCl [Pamelor -] 30 mg PO HS 05/04/16 Salmeterol/Fluticasone [Advair 1 inh PO BID 07/13/16 100Mcg/50Mcg -] Atorvastatin Ca [Lipitor] 10 mg PO HS #30 tablet 07/16/16 Ferrous Sulfate [Feosol] 325 mg PO BIDWM #120 ud 07/16/16 Apixaban [Eliquis -] 2.5 mg PO BID #60 tablet 07/26/16 Methimazole [Tapazole -] 15 mg PO TID #90 tablet 07/26/16 Sotalol HCl [Betapace -] 80 mg PO BID #60 tablet 07/26/16 Insulin Glargine,Hum.rec.anlog 5 units SQ HS #1 vial 08/03/16 [Lantus (nf)] Insulin Sliding Scale [Novolog 1 vial SQ ACHS #30 units 08/03/16 Vial Sliding Scale -] Prednisone See Taper PO BID #60 tablet 08/03/16 Methimazole [Tapazole] 10 mg PO TID 08/09/16 Nortriptyline HCl [Pamelor -] 10 mg PO HS 08/09/16 Pramipexole Di-HCl [Mirapex] 0.5 mg PO HS 08/09/16 Pregabalin [Lyrica] 75 mg PO DAILY 08/09/16 ASSESSMENT AND PLAN: 86 yr old woman with multiple co-morbidities BIBEMS from [facility] for difficulty breathing, was found to be in rapid Afib in the ED admitted for sepsis likely from pna, rapid Afib, and hypoxia/respiratory distress. # Acute Sepsis with Leukocytosis of 25k due to Strept Pneumo. On IV rocephin 1gm iv daily, on solumedrol IV #Afib with RVR , increased Sotalol to 120mg po bid ,continue cardizem drip and titrtate as needed , On abixapan 5mg po bid continue #Acute Respiratory distress/hypoxemia with tachpnea , was placed back on Bipap ; duonebs TID prn , solumedrol increased to 60mg IVPB q8 since wheezing with labored breathing. #T2DM novolog sliding scale with BGM ACHS #HTN/CHF Lopressor 5mg IVPush q6h prn , on cardizem IV, diovan 80m g po daily , lasix 40mg IVPB daily #CAD atorvastatin 10mg continue #Hyperthyroidism methiazole 15mg po TID #Diet: diabetic/low sodium #DVT prophylaxis - on Noac; Eliquis
[2016-08-11] MEDS: APIXABAN 5 MG TABLET PO SCH ×2 (09:43→21:54)
--- NOTE | 2016-08-11 09:45 | PN ---
Physical Exam: SUBJECTIVE: Patient seen and examined at bedside. Appears lethargic. Went into rapid afib overnight. Desaturated and was placed back on BiPaP. Complained of CP and given morphine. No current CP. OBJECTIVE: Vital Signs Period Temp Pulse Resp BP Sys/Pinedo Pulse Ox Last 24 Hr 97.4 F-98.2 F 61-177 20-32 91-134/60-96 94-97 GENERAL: The patient is awake, alert, NAD HEAD: Normal with no signs of trauma. EYES: PERRL, extraocular movements intact, sclera anicteric, Cataracts noted bilat. ENT: nares patent and hearing grossly normal NECK: supple. No JVD. LUNGS: Scattered coarse rhonchi. Diminished breath sounds bilat. no accessory muscle use. HEART: Regular rate and rhythm, S1, S2 without murmur, rub or gallop. ABDOMEN: Soft, nontender, nondistended, normoactive bowel sounds, no guarding, no rebound, no hepatosplenomegaly, no masses. EXTREMITIES: 2+ pulses, warm, well-perfused, trace bilat.LE edema NEUROLOGICAL: awake and alert. gait not observed. PSYCH: anxious SKIN: Echymosis on extremities. Laboratory Results - last 24 hr 08/10/16 08/10/16 08/10/16 12:02 16:26 20:45 WBC RBC Hgb Hct MCV MCHC RDW Plt Count MPV Neutrophils % Lymphocytes % Monocytes % Differential Comment Anticoagulation Therapy Puncture Site ABG pH ABG pCO2 at Pt Temp ABG pO2 at Pt Temp ABG HCO3 ABG O2 Sat (Measured) ABG O2 Content ABG Base Excess [place] Test O2 Delivery Device Oxygen Flow Rate Vent Mode Vent Rate Mechanical Rate PEEP Pressure Support Vent Sodium 146 H Potassium 3.3 L Chloride 97 L Carbon Dioxide 42 H Anion Gap 7 L BUN 34 H Creatinine 0.6 Creat Clearance w eGFR > 60 POC Glucometer 347.74477 365.65774 Random Glucose 221 H D Calcium 9.0 Phosphorus Magnesium Total Bilirubin 0.3 D AST 8 L ALT 21 Alkaline Phosphatase 86 D Creatine Kinase 27 Troponin I 0.02 C-Reactive Protein B-Natriuretic Peptide Total Protein 5.8 L Albumin 2.2 L 08/10/16 08/10/16 08/10/16 20:45 20:50 22:05 WBC RBC Hgb Hct MCV MCHC RDW Plt Count MPV Neutrophils % Lymphocytes % Monocytes % Differential Comment Anticoagulation Therapy Y Puncture Site Right radial ABG pH 7.47 H ABG pCO2 at Pt Temp 58.9 H ABG pO2 at Pt Temp 76.4 ABG HCO3 42.8 H* ABG O2 Sat (Measured) 95.3 ABG O2 Content 14.2 L ABG Base Excess 16.6 H* Torito Test Positive O2 Delivery Device Bipap Oxygen Flow Rate 40% Vent Mode S/t Vent Rate 14 Mechanical Rate Y PEEP 5.0 Pressure Support Vent 12 Sodium Potassium Chloride Carbon Dioxide Anion Gap BUN Creatinine Creat Clearance w eGFR POC Glucometer [phone] Random Glucose Calcium Phosphorus Magnesium Total Bilirubin AST ALT Alkaline Phosphatase Creatine Kinase Troponin I C-Reactive Protein B-Natriuretic Peptide 1151.44 H Total Protein Albumin 08/11/16 08/11/16 08/11/16 05:35 05:35 05:35 WBC 25.5 H RBC 4.74 Hgb 10.0 L Hct 33.6 MCV 70.9 L MCHC 29.6 L RDW 28.0 H Plt Count 243 D MPV 8.9 Neutrophils % 97.0 H Lymphocytes % 2.0 L D Monocytes % 1.0 L Differential Comment Manual diff done Anticoagulation Therapy Puncture Site ABG pH ABG pCO2 at Pt Temp ABG pO2 at Pt Temp ABG HCO3 ABG O2 Sat (Measured) ABG O2 Content ABG Base Excess [place] Test O2 Delivery Device Oxygen Flow Rate Vent Mode Vent Rate Mechanical Rate PEEP Pressure Support Vent Sodium 147 H Potassium 3.7 Chloride 98 Carbon Dioxide 44 H Anion Gap 5 L BUN 43 H D Creatinine 0.7 Creat Clearance w eGFR > 60 POC Glucometer Random Glucose 196 H Calcium 8.6 Phosphorus 3.5 Magnesium 1.7 L Total Bilirubin 0.2 D AST 9 L ALT 19 Alkaline Phosphatase 78 Creatine Kinase 19 L Troponin I 0.02 C-Reactive Protein B-Natriuretic Peptide Total Protein 5.5 L Albumin 2.0 L 08/11/16 08/11/16 05:35 06:43 WBC RBC Hgb Hct MCV MCHC RDW Plt Count MPV Neutrophils % Lymphocytes % Monocytes % Differential Comment Anticoagulation Therapy Puncture Site ABG pH ABG pCO2 at Pt Temp ABG pO2 at Pt Temp ABG HCO3 ABG O2 Sat (Measured) ABG O2 Content ABG Base Excess [place] Test O2 Delivery Device Oxygen Flow Rate Vent Mode Vent Rate Mechanical Rate PEEP Pressure Support Vent Sodium Potassium Chloride Carbon Dioxide Anion Gap BUN Creatinine Creat Clearance w eGFR POC Glucometer 222.73191 Random Glucose Calcium Phosphorus Magnesium Total Bilirubin AST ALT Alkaline Phosphatase Creatine Kinase Troponin I C-Reactive Protein Cancelled B-Natriuretic Peptide Total Protein Albumin Active Medications Generic Name Dose Route Start Last Admin Trade Name Freq PRN Reason Stop Dose Admin Albuterol Sulfate 1 amp 08/10/16 20:31 Ventolin 0.083% Nebulizer Soln - NEB Q4H PRN SHORT OF BREATH/WHEEZING Albuterol/Ipratropium 1 amp 08/09/16 14:00 08/11/16 06:33 Duoneb - NEB 1 amp TIDR MICHAEL Administration Apixaban 5 mg 08/09/16 22:00 08/10/16 21:43 Eliquis - PO 5 mg BID MICHAEL Administration Atorvastatin Calcium 10 mg 08/09/16 22:00 08/10/16 21:42 Lipitor - PO 10 mg HS MICHAEL Administration Chlorhexidine Gluconate 1 applic 08/09/16 22:00 08/10/16 21:36 Hibiclens For Decolonization - TP 1 applic HS MICHAEL Administration Furosemide 40 mg 08/10/16 10:00 08/10/16 09:22 Lasix Injection - IVPB 40 mg DAILY MICHAEL Administration Ceftriaxone Sodium 50 mls @ 100 mls/hr 08/10/16 14:45 08/10/16 14:47 Rocephin 1gm Ivpb (Pre-Docked) IVPB 100 mls/hr DAILY MICHAEL Administration Diltiazem HCl 125 mg/ Dextrose 125 mls @ 5 mls/hr 08/10/16 19:00 08/11/16 02:22 IVPB 0 mg/hr TITR MICHAEL Titration Protocol 5 MG/HR Insulin Aspart 1 vial 08/10/16 16:30 08/11/16 07:23 Novolog Vial Sliding Scale - SQ 4 units ACHS MICHAEL Administration Protocol Methimazole 15 mg 08/09/16 22:00 08/11/16 07:23 Tapazole - PO 15 mg TID MICHAEL Administration Methylprednisolone Sodium Succinate 60 mg 08/10/16 10:15 08/11/16 02:18 Solu-Medrol - IVPB 60 mg Q8H-IV MICHAEL Administration Metoprolol Tartrate 5 mg 08/09/16 13:04 08/10/16 17:20 Lopressor Injection - IVPUSH 5 mg Q4H PRN Administration HYPERTENSION Mupirocin 1 applic 08/09/16 22:00 08/10/16 21:36 Bactroban Ointment (For Decolonization) - NS 08/14/16 21:59 1 applic BID MICHAEL Administration Nortriptyline HCl 30 mg 08/09/16 22:00 08/10/16 21:43 Pamelor - PO 30 mg HS MICHAEL Administration [id number] Ethyl Esters 2 gm 08/09/16 22:00 08/10/16 21:41 Lovaza - PO 2 gm BID MICHAEL Administration Sotalol HCl 120 mg 08/11/16 10:00 Betapace - PO BID MICHAEL Valsartan 80 mg 08/10/16 10:00 08/10/16 09:22 Diovan - PO 80 mg DAILY MICHAEL Administration ASSESSMENT/PLAN: 86 year old female with a past medical history of NIDDM, COPD ( on home O2), HTN , HLD, GERD, nonobstructive CAD, early Parkinson's disease, diastolic dysfunction with h/o failure, paroxysmal atrial fibrillation, anemia, gastric AVM post cautery admitted to ICU for sepsis 2/2 PNA/UTI accompanied by AFIB with RVR requiring cardizem ggt and hypoxia requiring BiPaP. Neuro: * Lethargic- most likely due to over medication with Morphine. * will continue to monitor for any MS changes or focal neuro def. Pulmonary: * Currently on 50% venti mask. * Maintain O2 sat >90% * Albuterol/Ipratropium (Duoneb -) 1 amp NEB TID * Methylprednisolone Sodium Succinate (Solu-Medrol -) 40 mg IVPB Q8H-IV CV: CAD, CHF, Afib RVR * Seen by Dr. Tucker cardiology * Went into rapid afib again. * Cardizem ggt PRN * Rhythm control-Sotalol 80 mg PO BID * AC-Apixaban 5 mg PO BID * CHF :Atorvastatin 10 mg PO HS * Furosemide (Lasix Injection -) 40 mg IVPB DAILY * Metoprolol Tartrate 5 mg IVPUSH Q4H PRN * Valsartan (Diovan -) 80 mg PO DAILY * Continue cardiac monitoring. ID:HAP and UTI * Continue Ceftriaxone 1gm Daily * Seen by Dr. Givens- mentions possibility of Empyema; will obtain CRP. * Repeat CBC and CXR in AM ENDO: * ADA diet * ISS ACHS * BGM ACHS GI/DVT prophylaxis: * Eliquis 5mg PO BID * Protonix 40mg HS DISPO: Will continue to manage in ICU for Sepsis 2/2 UTI/PNA Visit type - Emergency Visit Emergency Visit: Yes ED Registration Date: 08/09/16 Care time: The patient presented to the Emergency Department on the above date and was hospitalized for further evaluation of their emergent condition. - New Patient This patient is new to me today: No - Critical Care Critical Care patient: Yes Total Critical Care Time (in minutes): 33 Critical Care Statement: The care of this patient involved high complexity decision making to prevent further life threatening deterioration of the patient 's condition and/or to evalute & treat vital organ system(s) failure or risk of failure.
[2016-08-11 11:35] LABS: C-REACTIVE PROTEIN 14.3 MG/DL (0.00-0.3)
--- NOTE | 2016-08-11 12:00 | PN ---
Progress Note, Physician History of Present Illness: Episodes of rapid afib amenable to cardizem IV boluses, currently in SR, comfortable on VM. - Current Medication List Current Medications: Active Medications Albuterol Sulfate (Ventolin 0.083% Nebulizer Soln -) 1 amp NEB Q4H PRN PRN Reason: SHORT OF BREATH/WHEEZING Albuterol/Ipratropium (Duoneb -) 1 amp NEB TIDR [facility] Last Admin: 08/11/16 06:33 Dose: 1 amp Apixaban (Eliquis -) 5 mg PO BID [facility] Last Admin: 08/11/16 09:43 Dose: 5 mg Atorvastatin Calcium (Lipitor -) 10 mg PO HS [facility] Last Admin: 08/10/16 21:42 Dose: 10 mg Chlorhexidine Gluconate (Hibiclens For Decolonization -) 1 applic TP HS [facility] Last Admin: 08/10/16 21:36 Dose: 1 applic Furosemide (Lasix Injection -) 40 mg IVPB DAILY [facility] Last Admin: 08/11/16 09:39 Dose: 40 mg Ceftriaxone Sodium (Rocephin 1gm Ivpb (Pre-Docked)) 50 mls @ 100 mls/hr IVPB DAILY [facility] Last Admin: 08/11/16 09:41 Dose: 100 mls/hr Diltiazem HCl 125 mg/ Dextrose 125 mls @ 5 mls/hr IVPB TITR MICHAEL; 5 MG/HR PRN Reason: Protocol Last Titration: 08/11/16 02:22 Dose: 0 mg/hr Insulin Aspart (Novolog Vial Sliding Scale -) 1 vial SQ ACHS MICHAEL PRN Reason: Protocol Last Admin: 08/11/16 11:15 Dose: 6 units Methimazole (Tapazole -) 15 mg PO TID [facility] Last Admin: 08/11/16 07:23 Dose: 15 mg Methylprednisolone Sodium Succinate (Solu-Medrol -) 60 mg IVPB Q8H-IV MICHAEL Last Admin: 08/11/16 09:40 Dose: 60 mg Metoprolol Tartrate (Lopressor Injection -) 5 mg IVPUSH Q4H PRN PRN Reason: HYPERTENSION Last Admin: 08/10/16 17:20 Dose: 5 mg Mupirocin (Bactroban Ointment (For Decolonization) -) 1 applic NS BID [facility] Stop: 08/14/16 21:59 Last Admin: 08/11/16 09:39 Dose: 1 applic Nortriptyline HCl (Pamelor -) 30 mg PO HS [facility] Last Admin: 08/10/16 21:43 Dose: 30 mg [id number]-[id number] Ethyl Esters (Lovaza -) 2 gm PO BID [facility] Last Admin: 08/11/16 09:39 Dose: 2 gm Sotalol HCl (Betapace -) 120 mg PO BID [facility] Last Admin: 08/11/16 09:39 Dose: 120 mg Valsartan (Diovan -) 80 mg PO DAILY [facility] Last Admin: 08/11/16 09:40 Dose: 80 mg - Objective Vital Signs: Vital Signs Temperature 97.6 F 08/11/16 10:00 Pulse Rate 65 08/11/16 10:00 Respiratory Rate 20 08/11/16 10:00 Blood Pressure 102/73 08/11/16 10:00 O2 Sat by Pulse Oximetry (%) 97 08/11/16 10:04 Constitutional: Yes: No Distress, Calm, Thin Neck: Yes: Supple Cardiovascular: Yes: Regular Rate and Rhythm Respiratory: Yes: Regular, Diminished, On Venti-Mask Gastrointestinal: Yes: Normal Bowel Sounds, Soft Edema: No Labs: CBC, BMP 08/11/16 05:35 08/11/16 05:35 INR, PTT INR 1.17 (0.82-1.09) H 08/09/16 09:30 - ....Imaging Chest X-ray: Report Reviewed (No acute changes) EKG: Report Reviewed (Tele: SR with PAC) Problem List - Problems (1) Acute on chronic diastolic (congestive) heart failure Code(s): I50.33 - ACUTE ON CHRONIC DIASTOLIC (CONGESTIVE) HEART FAILURE (2) Acute on chronic respiratory failure with hypoxia and hypercapnia Code(s): J96.21 - ACUTE AND CHRONIC RESPIRATORY FAILURE WITH HYPOXIA J96.22 - ACUTE AND CHRONIC RESPIRATORY FAILURE WITH HYPERCAPNIA (3) Atrial fibrillation with rapid ventricular response Code(s): I48.91 - UNSPECIFIED ATRIAL FIBRILLATION (4) Paroxysmal atrial fibrillation Code(s): I48.0 - PAROXYSMAL ATRIAL FIBRILLATION (5) Acute exacerbation of chronic obstructive pulmonary disease Code(s): J44.1 - CHRONIC OBSTRUCTIVE PULMONARY DISEASE W (ACUTE) EXACERBATION (6) Anemia Code(s): D64.9 - ANEMIA, UNSPECIFIED Qualifiers: Anemia type: unspecified type Qualified Code(s): D64.9 - Anemia, unspecified (7) Coronary artery disease Code(s): I25.10 - ATHSCL HEART DISEASE OF [place] CORONARY ARTERY W/O ANG PCTRS Qualifiers: Coronary Disease-Associated Artery/Lesion type: [place] artery [place] vs. transplanted heart: [place] heart Associated angina: without angina Qualified Code(s): I25.10 - Atherosclerotic heart disease of [place] coronary artery without angina pectoris (8) Gastric AV malformation Code(s): Q27.33 - ARTERIOVENOUS MALFORMATION OF DIGESTIVE SYSTEM VESSEL (9) HTN (hypertension) Code(s): I10 - ESSENTIAL (PRIMARY) HYPERTENSION Qualifiers: Hypertension type: essential hypertension Qualified Code(s): I10 - Essential (primary) hypertension (10) Hyperlipidemia Code(s): E78.5 - HYPERLIPIDEMIA, UNSPECIFIED Qualifiers: Hyperlipidemia type: mixed hyperlipidemia Qualified Code(s): E78.2 - Mixed hyperlipidemia (11) Hyperthyroidism Code(s): E05.90 - THYROTOXICOSIS, UNSP WITHOUT THYROTOXIC CRISIS OR STORM Assessment/Plan 1. Acute on chronic hypercapeniec/hypoxemic respiratory failure related to COPD/ emphysema exacerbation and pneumonia 2. Acute on chronic LV diastolic failure 3. Non obstructive CAD, angina pectoris 4. Paroxysmal atrial fibrillation with RVR currently in sinus rhythm [id number] score of 7 on NOAC 4. HTN 5. NIDDM 6. Hyperlipidemia 7. Parkinson's disease 8. Hyperthyroidism 9. Anemia 10. History of gastritis - gastric AVM post cautery PLAN: 1. Increased Sotalol 120 mg BID, Diovan 80 mg QD, Eliquis 5 mg BID, Lovaza 2 g BID and Lipitor 10 mg QHS 2. Lasix 40 IV qd with monitoring renal function and electrolytes 3. Empiric antibiotics, IV steroids taper, Bronchodilators, O2 and BIPAP as needed 4. Continue Tapazole 5. GI prophylaxis
--- NOTE | 2016-08-11 12:27 | PN ---
Teaching Attending Note Name of Resident: Hamzah Daigle ATTENDING PHYSICIAN STATEMENT I saw and evaluated the patient. I reviewed the resident's note and discussed the case with the resident. I agree with the resident's findings and plan as documented. SUBJECTIVE: Patient seen and examined in the ICU. Currently on VM O2. Was on BiPAP overnight. P Afib noted. Lethargic but arousable. OBJECTIVE: Intake & Output 08/08/16 08/09/16 08/10/16 08/11/16 23:59 23:59 23:59 23:59 Intake Total 170 260 130 Output Total 1100 2200 200 Balance -930 -1940 -70 Weight 165 lb 12.743 oz 105 lb 8 oz 109 lb Last Vital Signs Temp Pulse Resp BP Pulse Ox 97.5 F L 72 20 118/61 97 08/11/16 12:00 08/11/16 12:00 08/11/16 12:00 08/11/16 12:00 08/11/16 10:04 Active Medications Albuterol Sulfate (Ventolin 0.083% Nebulizer Soln -) 1 amp NEB Q4H PRN PRN Reason: SHORT OF BREATH/WHEEZING Albuterol/Ipratropium (Duoneb -) 1 amp NEB TIDR [facility] Last Admin: 08/11/16 06:33 Dose: 1 amp Apixaban (Eliquis -) 5 mg PO BID [facility] Last Admin: 08/11/16 09:43 Dose: 5 mg Atorvastatin Calcium (Lipitor -) 10 mg PO HS [facility] Last Admin: 08/10/16 21:42 Dose: 10 mg Chlorhexidine Gluconate (Hibiclens For Decolonization -) 1 applic TP HS [facility] Last Admin: 08/10/16 21:36 Dose: 1 applic Furosemide (Lasix Injection -) 40 mg IVPB DAILY [facility] Last Admin: 08/11/16 09:39 Dose: 40 mg Ceftriaxone Sodium (Rocephin 1gm Ivpb (Pre-Docked)) 50 mls @ 100 mls/hr IVPB DAILY [facility] Last Admin: 08/11/16 09:41 Dose: 100 mls/hr Diltiazem HCl 125 mg/ Dextrose 125 mls @ 5 mls/hr IVPB TITR MICHAEL; 5 MG/HR PRN Reason: Protocol Last Titration: 08/11/16 02:22 Dose: 0 mg/hr Insulin Aspart (Novolog Vial Sliding Scale -) 1 vial SQ ACHS MICHAEL PRN Reason: Protocol Last Admin: 08/11/16 11:15 Dose: 6 units Methimazole (Tapazole -) 15 mg PO TID [facility] Last Admin: 08/11/16 07:23 Dose: 15 mg Methylprednisolone Sodium Succinate (Solu-Medrol -) 60 mg IVPB Q8H-IV MICHAEL Last Admin: 08/11/16 09:40 Dose: 60 mg Metoprolol Tartrate (Lopressor Injection -) 5 mg IVPUSH Q4H PRN PRN Reason: HYPERTENSION Last Admin: 08/10/16 17:20 Dose: 5 mg Mupirocin (Bactroban Ointment (For Decolonization) -) 1 applic NS BID [facility] Stop: 08/14/16 21:59 Last Admin: 08/11/16 09:39 Dose: 1 applic Nortriptyline HCl (Pamelor -) 30 mg PO HS [facility] Last Admin: 08/10/16 21:43 Dose: 30 mg [id number]-4-[id number] Ethyl Esters (Lovaza -) 2 gm PO BID [facility] Last Admin: 08/11/16 09:39 Dose: 2 gm Sotalol HCl (Betapace -) 120 mg PO BID [facility] Last Admin: 08/11/16 09:39 Dose: 120 mg Valsartan (Diovan -) 80 mg PO DAILY [facility] Last Admin: 08/11/16 09:40 Dose: 80 mg Gen: Confused and mildly tachypneic on VM O2 Heart: RRR Lung: distant breath sounds, scattered basilar rales Abd: soft, nontender Ext: trace edema Laboratory Results - last 24 hr 08/10/16 08/10/16 08/10/16 12:02 16:26 20:45 WBC RBC Hgb Hct MCV MCHC RDW Plt Count MPV Neutrophils % Lymphocytes % Monocytes % Differential Comment Anticoagulation Therapy Puncture Site ABG pH ABG pCO2 at Pt Temp ABG pO2 at Pt Temp ABG HCO3 ABG O2 Sat (Measured) ABG O2 Content ABG Base Excess [place] Test O2 Delivery Device Oxygen Flow Rate Vent Mode Vent Rate Mechanical Rate PEEP Pressure Support Vent Sodium 146 H Potassium 3.3 L Chloride 97 L Carbon Dioxide 42 H Anion Gap 7 L BUN 34 H Creatinine 0.6 Creat Clearance w eGFR > 60 POC Glucometer 347.22609 365.15856 Random Glucose 221 H D Calcium 9.0 Phosphorus Magnesium Total Bilirubin 0.3 D AST 8 L ALT 21 Alkaline Phosphatase 86 D Creatine Kinase 27 Troponin I 0.02 C-Reactive Protein B-Natriuretic Peptide Total Protein 5.8 L Albumin 2.2 L 08/10/16 08/10/16 08/10/16 20:45 20:50 22:05 WBC RBC Hgb Hct MCV MCHC RDW Plt Count MPV Neutrophils % Lymphocytes % Monocytes % Differential Comment Anticoagulation Therapy Y Puncture Site Right radial ABG pH 7.47 H ABG pCO2 at Pt Temp 58.9 H ABG pO2 at Pt Temp 76.4 ABG HCO3 42.8 H* ABG O2 Sat (Measured) 95.3 ABG O2 Content 14.2 L ABG Base Excess 16.6 H* Torito Test Positive O2 Delivery Device Bipap Oxygen Flow Rate 40% Vent Mode S/t Vent Rate 14 Mechanical Rate Y PEEP 5.0 Pressure Support Vent 12 Sodium Potassium Chloride Carbon Dioxide Anion Gap BUN Creatinine Creat Clearance w eGFR POC Glucometer 274.11741 Random Glucose Calcium Phosphorus Magnesium Total Bilirubin AST ALT Alkaline Phosphatase Creatine Kinase Troponin I C-Reactive Protein B-Natriuretic Peptide 1151.44 H Total Protein Albumin 08/11/16 08/11/16 08/11/16 05:35 05:35 05:35 WBC 25.5 H RBC 4.74 Hgb 10.0 L Hct 33.6 MCV 70.9 L MCHC 29.6 L RDW 28.0 H Plt Count 243 D MPV 8.9 Neutrophils % 97.0 H Lymphocytes % 2.0 L D Monocytes % 1.0 L Differential Comment Manual diff done Anticoagulation Therapy Puncture Site ABG pH ABG pCO2 at Pt Temp ABG pO2 at Pt Temp ABG HCO3 ABG O2 Sat (Measured) ABG O2 Content ABG Base Excess [place] Test O2 Delivery Device Oxygen Flow Rate Vent Mode Vent Rate Mechanical Rate PEEP Pressure Support Vent Sodium 147 H Potassium 3.7 Chloride 98 Carbon Dioxide 44 H Anion Gap 5 L BUN 43 H D Creatinine 0.7 Creat Clearance w eGFR > 60 POC Glucometer Random Glucose 196 H Calcium 8.6 Phosphorus 3.5 Magnesium 1.7 L Total Bilirubin 0.2 D AST 9 L ALT 19 Alkaline Phosphatase 78 Creatine Kinase 19 L Troponin I 0.02 C-Reactive Protein 14.3 H B-Natriuretic Peptide Total Protein 5.5 L Albumin 2.0 L 08/11/16 08/11/16 05:35 06:43 WBC RBC Hgb Hct MCV MCHC RDW Plt Count MPV Neutrophils % Lymphocytes % Monocytes % Differential Comment Anticoagulation Therapy Puncture Site ABG pH ABG pCO2 at Pt Temp ABG pO2 at Pt Temp ABG HCO3 ABG O2 Sat (Measured) ABG O2 Content ABG Base Excess [place] Test O2 Delivery Device Oxygen Flow Rate Vent Mode Vent Rate Mechanical Rate PEEP Pressure Support Vent Sodium Potassium Chloride Carbon Dioxide Anion Gap BUN Creatinine Creat Clearance w eGFR POC Glucometer 222.48702 Random Glucose Calcium Phosphorus Magnesium Total Bilirubin AST ALT Alkaline Phosphatase Creatine Kinase Troponin I C-Reactive Protein Cancelled B-Natriuretic Peptide Total Protein Albumin Problem List - Problems (1) Acute on chronic respiratory failure with hypoxia and hypercapnia Code(s): J96.21 - ACUTE AND CHRONIC RESPIRATORY FAILURE WITH HYPOXIA J96.22 - ACUTE AND CHRONIC RESPIRATORY FAILURE WITH HYPERCAPNIA (2) Pneumonia Code(s): J18.9 - PNEUMONIA, UNSPECIFIED ORGANISM (3) UTI (urinary tract infection) Code(s): N39.0 - URINARY TRACT INFECTION, SITE NOT SPECIFIED Qualifiers: Urinary tract infection type: site unspecified Hematuria presence: without hematuria Qualified Code(s): N39.0 - Urinary tract infection, site not specified (4) Sepsis Code(s): A41.9 - SEPSIS, UNSPECIFIED ORGANISM Qualifiers: Sepsis type: sepsis due to unspecified organism Qualified Code(s): A41.9 - Sepsis, unspecified organism (5) Atrial fibrillation with rapid ventricular response Code(s): I48.91 - UNSPECIFIED ATRIAL FIBRILLATION (6) Acute exacerbation of chronic obstructive pulmonary disease Code(s): J44.1 - CHRONIC OBSTRUCTIVE PULMONARY DISEASE W (ACUTE) EXACERBATION (7) Acute on chronic diastolic (congestive) heart failure Code(s): I50.33 - ACUTE ON CHRONIC DIASTOLIC (CONGESTIVE) HEART FAILURE (8) Coronary artery disease Code(s): I25.10 - ATHSCL HEART DISEASE OF [place] CORONARY ARTERY W/O ANG PCTRS Qualifiers: Coronary Disease-Associated Artery/Lesion type: [place] artery [place] vs. transplanted heart: [place] heart Associated angina: without angina Qualified Code(s): I25.10 - Atherosclerotic heart disease of [place] coronary artery without angina pectoris (9) Diabetes Code(s): E11.9 - TYPE 2 DIABETES MELLITUS WITHOUT COMPLICATIONS Qualifiers: Diabetes mellitus type: type 2 Diabetes mellitus complication status: without complication Diabetes mellitus manager long term care insulin use: without manager long term care use Qualified Code(s): E11.9 - Type 2 diabetes mellitus without complications (10) HTN (hypertension) Code(s): I10 - ESSENTIAL (PRIMARY) HYPERTENSION Qualifiers: Hypertension type: essential hypertension Qualified Code(s): I10 - Essential (primary) hypertension (11) Hyperlipidemia Code(s): E78.5 - HYPERLIPIDEMIA, UNSPECIFIED Qualifiers: Hyperlipidemia type: mixed hyperlipidemia Qualified Code(s): E78.2 - Mixed hyperlipidemia ASSESSMENT AND PLAN: Strep Pneumonia (?) Empyema UTI Sepsis Paroxysmal Atrial Fibrillation with RVR now in sinus Acute on Chronic LV Diastolic Heart Failure likely rate related CAD r/o Acute COPD Exacerbation HTN DM Hypercholesterolemia - ABX - continue sotalol for rate/rhythm control - continue anticoagulation - BiPAP as needed to assist in work of breathing - VM O2 as tolerated - O2 to keep SpO2 >90% - Taper steroids to 40mg OD - inhaled bronchodilators - PO if she can tolerate it, if not may need NGT - DVT/GI prophylaxis - If fever, increase in CP, may need additional chest imaging - continue ICU monitoring Dr Vo CCTime 35"
--- NOTE | 2016-08-11 17:51 | PN ---
Physical Exam: SUBJECTIVE: Patient seen and examined. chest pain improved. feels more comfortable. mostly nods yes or no to questions , appears to take effort to speak in full sentences. OBJECTIVE: Vital Signs Period Temp Pulse Resp BP Sys/Pinedo Pulse Ox Last 24 Hr 97.5 F-98.2 F 61-162 20-32 91-128/59-96 94-97 GENERAL: The patient is awake, and fully oriented, in no acute distress. HEAD: Normal with no signs of trauma. EYES: extraocular movements intact ENT: nares patent. on venti mask LUNGS: Breath sounds with rales R>L. accessory muscle use. RR 27 HEART: afib. S1, S2 ABDOMEN: Soft, nontender, nondistended, EXTREMITIES: 1+ pulses, warm, trace pedal edema NEUROLOGICAL: gait not observed. PSYCH: Normal mood, normal affect. cooperative. SKIN: Warm, dry, normal turgor, no rashes or lesions noted Laboratory Results - last 24 hr 08/10/16 08/10/16 08/10/16 16:26 20:45 20:45 WBC RBC Hgb Hct MCV MCHC RDW Plt Count MPV Neutrophils % Lymphocytes % Monocytes % Differential Comment Anticoagulation Therapy Puncture Site ABG pH ABG pCO2 at Pt Temp ABG pO2 at Pt Temp ABG HCO3 ABG O2 Sat (Measured) ABG O2 Content ABG Base Excess Torito Test O2 Delivery Device Oxygen Flow Rate Vent Mode Vent Rate Mechanical Rate PEEP Pressure Support Vent Sodium 146 H Potassium 3.3 L Chloride 97 L Carbon Dioxide 42 H Anion Gap 7 L BUN 34 H Creatinine 0.6 Creat Clearance w eGFR > 60 POC Glucometer [phone] Random Glucose 221 H D Calcium 9.0 Phosphorus Magnesium Total Bilirubin 0.3 D AST 8 L ALT 21 Alkaline Phosphatase 86 D Creatine Kinase 27 Troponin I 0.02 C-Reactive Protein B-Natriuretic Peptide 1151.44 H Total Protein 5.8 L Albumin 2.2 L 08/10/16 08/10/16 08/11/16 20:50 22:05 05:35 WBC 25.5 H RBC 4.74 Hgb 10.0 L Hct 33.6 MCV 70.9 L MCHC 29.6 L RDW 28.0 H Plt Count 243 D MPV 8.9 Neutrophils % 97.0 H Lymphocytes % 2.0 L D Monocytes % 1.0 L Differential Comment Manual diff done Anticoagulation Therapy Y Puncture Site Right radial ABG pH 7.47 H ABG pCO2 at Pt Temp 58.9 H ABG pO2 at Pt Temp 76.4 ABG HCO3 42.8 H* ABG O2 Sat (Measured) 95.3 ABG O2 Content 14.2 L ABG Base Excess 16.6 H* Torito Test Positive O2 Delivery Device Bipap Oxygen Flow Rate 40% Vent Mode S/t Vent Rate 14 Mechanical Rate Y PEEP 5.0 Pressure Support Vent 12 Sodium Potassium Chloride Carbon Dioxide Anion Gap BUN Creatinine Creat Clearance w eGFR POC Glucometer [phone] Random Glucose Calcium Phosphorus Magnesium Total Bilirubin AST ALT Alkaline Phosphatase Creatine Kinase Troponin I C-Reactive Protein B-Natriuretic Peptide Total Protein Albumin 08/11/16 08/11/16 08/11/16 05:35 05:35 05:35 WBC RBC Hgb Hct MCV MCHC RDW Plt Count MPV Neutrophils % Lymphocytes % Monocytes % Differential Comment Anticoagulation Therapy Puncture Site ABG pH ABG pCO2 at Pt Temp ABG pO2 at Pt Temp ABG HCO3 ABG O2 Sat (Measured) ABG O2 Content ABG Base Excess Torito Test O2 Delivery Device Oxygen Flow Rate Vent Mode Vent Rate Mechanical Rate PEEP Pressure Support Vent Sodium 147 H Potassium 3.7 Chloride 98 Carbon Dioxide 44 H Anion Gap 5 L BUN 43 H D Creatinine 0.7 Creat Clearance w eGFR > 60 POC Glucometer Random Glucose 196 H Calcium 8.6 Phosphorus 3.5 Magnesium 1.7 L Total Bilirubin 0.2 D AST 9 L ALT 19 Alkaline Phosphatase 78 Creatine Kinase 19 L Troponin I 0.02 C-Reactive Protein 14.3 H Cancelled B-Natriuretic Peptide Total Protein 5.5 L Albumin 2.0 L 08/11/16 08/11/16 06:43 11:10 WBC RBC Hgb Hct MCV MCHC RDW Plt Count MPV Neutrophils % Lymphocytes % Monocytes % Differential Comment Anticoagulation Therapy Puncture Site ABG pH ABG pCO2 at Pt Temp ABG pO2 at Pt Temp ABG HCO3 ABG O2 Sat (Measured) ABG O2 Content ABG Base Excess Torito Test O2 Delivery Device Oxygen Flow Rate Vent Mode Vent Rate Mechanical Rate PEEP Pressure Support Vent Sodium Potassium Chloride Carbon Dioxide Anion Gap BUN Creatinine Creat Clearance w eGFR POC Glucometer 222.80180 252.07066 Random Glucose Calcium Phosphorus Magnesium Total Bilirubin AST ALT Alkaline Phosphatase Creatine Kinase Troponin I C-Reactive Protein B-Natriuretic Peptide Total Protein Albumin Active Medications Generic Name Dose Route Start Last Admin Trade Name Freq PRN Reason Stop Dose Admin Albuterol Sulfate 1 amp 08/10/16 20:31 Ventolin 0.083% Nebulizer Soln - NEB Q4H PRN SHORT OF BREATH/WHEEZING Albuterol/Ipratropium 1 amp 08/09/16 14:00 08/11/16 14:37 Duoneb - NEB 1 amp TIDR MICHAEL Administration Apixaban 5 mg 08/09/16 22:00 08/11/16 09:43 Eliquis - PO 5 mg BID MICHAEL Administration Atorvastatin Calcium 10 mg 08/09/16 22:00 08/10/16 21:42 Lipitor - PO 10 mg HS MICHAEL Administration Chlorhexidine Gluconate 1 applic 08/09/16 22:00 08/10/16 21:36 Hibiclens For Decolonization - TP 1 applic HS MICHAEL Administration Furosemide 40 mg 08/10/16 10:00 08/11/16 09:39 Lasix Injection - IVPB 40 mg DAILY MICHAEL Administration Ceftriaxone Sodium 50 mls @ 100 mls/hr 08/10/16 14:45 08/11/16 09:41 Rocephin 1gm Ivpb (Pre-Docked) IVPB 100 mls/hr DAILY MICHAEL Administration Diltiazem HCl 125 mg/ Dextrose 125 mls @ 5 mls/hr 08/10/16 19:00 08/11/16 02:22 IVPB 0 mg/hr TITR MICHAEL Titration Protocol 5 MG/HR Insulin Aspart 1 vial 08/10/16 16:30 08/11/16 16:31 Novolog Vial Sliding Scale - SQ 8 units ACHS MICHAEL Administration Protocol Methimazole 15 mg 08/09/16 22:00 08/11/16 13:10 Tapazole - PO 15 mg TID MICHAEL Administration Methylprednisolone Sodium Succinate 60 mg 08/10/16 10:15 08/11/16 09:40 Solu-Medrol - IVPB 60 mg Q8H-IV MICHAEL Administration Metoprolol Tartrate 5 mg 08/09/16 13:04 08/10/16 17:20 Lopressor Injection - IVPUSH 5 mg Q4H PRN Administration HYPERTENSION Mupirocin 1 applic 08/09/16 22:00 08/11/16 09:39 Bactroban Ointment (For Decolonization) - NS 08/14/16 21:59 1 applic BID MICHAEL Administration Nortriptyline HCl 30 mg 08/09/16 22:00 08/10/16 21:43 Pamelor - PO 30 mg HS MICHAEL Administration Narla-5-Isez Ethyl Esters 2 gm 08/09/16 22:00 08/11/16 09:39 Lovaza - PO 2 gm BID MICHAEL Administration Sotalol HCl 120 mg 08/11/16 10:00 08/11/16 09:39 Betapace - PO 120 mg BID MICHAEL Administration Valsartan 80 mg 08/10/16 10:00 08/11/16 09:40 Diovan - PO 80 mg DAILY MICHAEL Administration ASSESSMENT/PLAN: 86 yr old woman with multiple co-morbidities BIBEMS from [facility] for difficulty breathing, was found to be in rapid Afib in the ED admitted for sepsis likely from pna, rapid Afib, and hypoxia/respiratory distress. #Sepsis secondary to strep pneumo(pos urine) - WBC uptrending. - rocephin 1gm iv daily #Afib, persistent - improving, rate controlled. likely triggered by infection - sotalol 120mg po bid - abixapan 5mg po bid - eliquis 5mg po bid #Respiratory distress/hypoxia - improved with Bipap, maintain as needed. - duonebs TID prn - solumedrol 40mg IVPB BID, taper #DM - novolog sliding scale - BGM ACHS #HTN/CHF - metoprolol tart 5mg IVPush q4h prn - diovan 80m g po daily - lasix 40mg IVPB qdaily #CAD - atorvastatin 10mg HS po #Hyperthyroidism -methiazole 15mg po TID #Diet: diabetic/low sodium #DVT prophylaxis - on anticoagulation Visit type - Emergency Visit Emergency Visit: No - New Patient This patient is new to me today: No - Critical Care Critical Care patient: Yes Total Critical Care Time (in minutes): 34 Critical Care Statement: The care of this patient involved high complexity decision making to prevent further life threatening deterioration of the patient 's condition and/or to evalute & treat vital organ system(s) failure or risk of failure.
[2016-08-11] MEDS ORDERED: SOTALOL HCL 80 MG TABLET (FP) PO ONE (18:12)
[2016-08-11] MEDS: DILTIAZEM INJECTION 125 MG in DEXTROSE 5%-WATER - 100 ML IVPB SCH (19:00)
[2016-08-11] MEDS: ATORVASTATIN CA 10 MG TABLET (FP) PO SCH (21:53)
[2016-08-11] MEDS: CHLORHEXIDINE GLUCONATE 4% CLEANSER FOR DECOLONIZATION TP SCH (21:54)
[2016-08-11] MEDS: NORTRIPTYLINE HCL 10 MG CAPSULE PO SCH (21:54)
[2016-08-11] MEDS ORDERED: INSULIN REGULAR 100 UNITS in SODIUM CHLORIDE 99 ML IVPB SCH (22:45)
[2016-08-11] MEDS ORDERED: INSULIN REGULAR HUMAN 100 UNITS/ML *VIAL ONE (22:56)
[2016-08-12] MEDS: ALBUTEROL SO4 2.5/IPRATROPIUM 0.5 INH SOL 3 ML VIAL.NEB. NEB SCH ×3 (05:35→21:14)
[2016-08-12] MEDS: METHIMAZOLE 5 MG TABLET (FP) PO SCH ×2 (05:38→22:03)
[2016-08-12 06:12] LABS: MCHC 29.5 g/dl (32.0-36.0); MEAN CELL VOLUME 71.4 fl (80-96); MEAN PLT VOLUME 9.4 fl (7.5-11.1); PLATELET COUNT 236 K/MM3 (134-434); RDW 28.1 % (11.6-15.6); WHITE BLOOD COUNT 20.8 K/mm3 (4.0-10.0)
--- NOTE | 2016-08-12 06:59 | PN ---
Progress Note, Physician Chief Complaint: ID Lethargic Remains hypoxic on Venti mask Ceftriaxone & Solumedrol No fevers but on Solumedrol 40mg bid ! - Current Medication List Current Medications: Active Medications Albuterol Sulfate (Ventolin 0.083% Nebulizer Soln -) 1 amp NEB Q4H PRN PRN Reason: SHORT OF BREATH/WHEEZING Albuterol/Ipratropium (Duoneb -) 1 amp NEB TIDR [facility] Last Admin: 08/12/16 05:35 Dose: 1 amp Apixaban (Eliquis -) 5 mg PO BID [facility] Last Admin: 08/11/16 21:54 Dose: 5 mg Atorvastatin Calcium (Lipitor -) 10 mg PO HS [facility] Last Admin: 08/11/16 21:53 Dose: 10 mg Chlorhexidine Gluconate (Hibiclens For Decolonization -) 1 applic TP HS [facility] Last Admin: 08/11/16 21:54 Dose: 1 applic Furosemide (Lasix Injection -) 40 mg IVPB DAILY [facility] Last Admin: 08/11/16 09:39 Dose: 40 mg Ceftriaxone Sodium (Rocephin 1gm Ivpb (Pre-Docked)) 50 mls @ 100 mls/hr IVPB DAILY [facility] Last Admin: 08/11/16 09:41 Dose: 100 mls/hr Diltiazem HCl 125 mg/ Dextrose 125 mls @ 5 mls/hr IVPB TITR MICHAEL; 5 MG/HR PRN Reason: Protocol Last Admin: 08/11/16 19:00 Dose: Not Given Insulin Human Regular 100 (units/ Sodium Chloride) 100 mls @ 2 mls/hr IVPB TITR MICHAEL; 2 UNITS/HR PRN Reason: Protocol Last Titration: 08/12/16 04:26 Dose: 0 units/hr Methimazole (Tapazole -) 15 mg PO TID [facility] Last Admin: 08/12/16 05:38 Dose: 15 mg Methylprednisolone Sodium Succinate (Solu-Medrol -) 40 mg IVPB BID [facility] Last Admin: 08/11/16 22:00 Dose: 40 mg Metoprolol Tartrate (Lopressor Injection -) 5 mg IVPUSH Q4H PRN PRN Reason: HYPERTENSION Last Admin: 08/10/16 17:20 Dose: 5 mg Mupirocin (Bactroban Ointment (For Decolonization) -) 1 applic NS BID [facility] Stop: 08/14/16 21:59 Last Admin: 08/11/16 21:52 Dose: 1 applic Nortriptyline HCl (Pamelor -) 30 mg PO HS [facility] Last Admin: 08/11/16 21:54 Dose: 30 mg Nlgve-9-Uywl Ethyl Esters (Lovaza -) 2 gm PO BID [facility] Last Admin: 08/11/16 21:53 Dose: 2 gm Sotalol HCl (Betapace -) 120 mg PO BID [facility] Last Admin: 08/11/16 22:44 Dose: Not Given Valsartan (Diovan -) 80 mg PO DAILY [facility] Last Admin: 08/11/16 09:40 Dose: 80 mg - Objective Vital Signs: Vital Signs Temperature 98 F 08/11/16 21:07 Pulse Rate 75 08/12/16 04:00 Respiratory Rate 20 08/12/16 04:00 Blood Pressure 123/68 08/12/16 04:00 O2 Sat by Pulse Oximetry (%) 94 L 08/11/16 20:58 Constitutional: Yes: Mild Distress Neck: Yes: WNL, Supple Cardiovascular: Yes: S1, S2 Respiratory: Yes: Diminished, Rhonchi Gastrointestinal: Yes: Soft. No: Splenomegaly, Tenderness, Tenderness, Rebound Edema: No Labs: CBC, BMP 08/12/16 05:15 08/11/16 22:30 INR, PTT INR 1.17 (0.82-1.09) H 08/09/16 09:30 Problem List - Problems (1) Atrial fibrillation with rapid ventricular response Code(s): I48.91 - UNSPECIFIED ATRIAL FIBRILLATION (2) Sepsis Code(s): A41.9 - SEPSIS, UNSPECIFIED ORGANISM Qualifiers: Qualified Code(s): A41.9 - Sepsis, unspecified organism (3) Pneumococcal pneumonia Code(s): J13 - PNEUMONIA DUE TO STREPTOCOCCUS PNEUMONIAE Assessment/Plan Laboratory Tests 08/11/16 08/11/16 08/12/16 05:35 22:30 05:15 WBC 20.8 H Hgb 9.8 L Plt Count 236 Random Glucose 436 H* D C-Reactive Protein 14.3 H Assessment Pneumococcal pneumonia wit effusion and possible empyema Diabetes wiath blood sugar over 400 Insulin drip Has COPD atrial fibrillation. CRP elevated Not going to have fever given age and steroids leukomoid response may be steroids but an empyema considered. Plan Continue Ceftriaxone CT chest to assess effusion Glucose management [place] [facility]
[2016-08-12] MEDS ORDERED: dilTIAZem HCL 125 MG/25 ML - 5 ML VIAL ONE (07:08)
[2016-08-12] MEDS: SOTALOL HCL 80 MG TABLET (FP) PO SCH ×3 (07:09→22:02)
[2016-08-12 07:41] LABS: ARTERIAL BLD GAS O2 SATURATION 91.9 % (90-98.9); ARTERIAL BLOOD GAS BASE EXCESS 18.9 meq/l (-2-2); ARTERIAL BLOOD GAS HCO3 45.2 meq/L (22-26)
[2016-08-12 07:45] LABS: ALLENS TEST POSITIVE; ART PUNCT SITE RIGHT RADIAL; ARTERIAL BLOOD GAS PO2 64.5 mmHg (68-100); ARTERIAL BLOOD GAS pH 7.49 (7.35-7.45); LPM/O2% 40%; PT. ON O2? YES; TYPE OF O2 VENTIMASK
[2016-08-12] MEDS: MUPIROCIN 2% TOPICAL OINTMENT FOR DECOLONIZATION NS SCH ×2 (09:38→22:03)
[2016-08-12] MEDS: FUROSEMIDE 40 MG/4 ML INJECTABLE VIAL IVPB SCH (09:39)
[2016-08-12] MEDS: CEFTRIAXONE 50 ML IVPB SCH (09:39)
[2016-08-12] MEDS: methylPREDNISolone NA SUCC 40 MG/1 ML VIAL IVPB SCH (09:39)
[2016-08-12] MEDS: APIXABAN 5 MG TABLET PO SCH ×2 (09:40→22:03)
[2016-08-12] MEDS: VALSARTAN 80 MG TABLET (UD) PO SCH (09:40)
[2016-08-12] MEDS: OMEGA-3 ACID ETHYL ESTERS (FATTY-ACIDS) 1 GM CAPSULE (FP) PO SCH ×2 (09:41→22:02)
--- NOTE | 2016-08-12 10:27 | PN ---
Progress Note (short form) - Note Progress Note: PULMONARY/CCM Pt seen and examined in the ICU. States she feels better with less shortness of breath. No fevers recorded. Off BiPAP. Started on insulin gtt overnight for hyperglycemia. Last Vital Signs Temp Pulse Resp BP Pulse Ox 98.2 F 72 20 117/76 94 L 08/12/16 06:00 08/12/16 06:00 08/12/16 08:00 08/12/16 08:00 08/11/16 20:58 Intake & Output 08/09/16 08/10/16 08/11/16 08/12/16 23:59 23:59 23:59 23:59 Intake Total 170 260 480 176 Output Total 1100 2200 950 200 Balance -930 -1940 -470 -24 Weight 165 lb 12.743 oz 105 lb 8 oz 105 lb 105 lb 1 oz Gen: less tachypneic but weak appearing Heart: RRR Lung: distant breath sounds, no wheezes appreciated Abd: soft, nontender Ext: no edema CBC, BMP 08/12/16 05:15 08/11/16 22:30 Active Medications Albuterol Sulfate (Ventolin 0.083% Nebulizer Soln -) 1 amp NEB Q4H PRN PRN Reason: SHORT OF BREATH/WHEEZING Albuterol/Ipratropium (Duoneb -) 1 amp NEB TIDR [facility] Last Admin: 08/12/16 05:35 Dose: 1 amp Apixaban (Eliquis -) 5 mg PO BID [facility] Last Admin: 08/12/16 09:40 Dose: 5 mg Atorvastatin Calcium (Lipitor -) 10 mg PO [facility] Last Admin: 08/11/16 21:53 Dose: 10 mg Chlorhexidine Gluconate (Hibiclens For Decolonization -) 1 applic TP [facility] Last Admin: 08/11/16 21:54 Dose: 1 applic Furosemide (Lasix Injection -) 40 mg IVPB DAILY [facility] Last Admin: 08/12/16 09:39 Dose: 40 mg Ceftriaxone Sodium (Rocephin 1gm Ivpb (Pre-Docked)) 50 mls @ 100 mls/hr IVPB DAILY [facility] Last Admin: 08/12/16 09:39 Dose: 100 mls/hr Diltiazem HCl 125 mg/ Dextrose 125 mls @ 5 mls/hr IVPB TITR MICHAEL; 5 MG/HR PRN Reason: Protocol Last Admin: 08/11/16 19:00 Dose: Not Given Insulin Human Regular 100 (units/ Sodium Chloride) 100 mls @ 2 mls/hr IVPB TITR MICHAEL; 2 UNITS/HR PRN Reason: Protocol Last Titration: 08/12/16 07:15 Dose: 2 units/hr Methimazole (Tapazole -) 15 mg PO TID [facility] Last Admin: 08/12/16 05:38 Dose: 15 mg Methylprednisolone Sodium Succinate (Solu-Medrol -) 40 mg IVPB BID [facility] Last Admin: 08/12/16 09:39 Dose: 40 mg Metoprolol Tartrate (Lopressor Injection -) 5 mg IVPUSH Q4H PRN PRN Reason: HYPERTENSION Last Admin: 08/10/16 17:20 Dose: 5 mg Mupirocin (Bactroban Ointment (For Decolonization) -) 1 applic NS BID [facility] Stop: 08/14/16 21:59 Last Admin: 08/12/16 09:38 Dose: 1 applic Nortriptyline HCl (Pamelor -) 30 mg PO HS [facility] Last Admin: 08/11/16 21:54 Dose: 30 mg Yoalp-1-Uuce Ethyl Esters (Lovaza -) 2 gm PO BID [facility] Last Admin: 08/12/16 09:41 Dose: 2 gm Sotalol HCl (Betapace -) 120 mg PO BID [facility] Last Admin: 08/12/16 09:40 Dose: 120 mg Valsartan (Diovan -) 80 mg PO DAILY [facility] Last Admin: 08/12/16 09:40 Dose: 80 mg A/P Pneumonia UTI Sepsis Atrial Fibrillation with RVR improving Acute on Chronic LV Diastolic Heart Failure likely rate related CAD Acute COPD Exacerbation HTN DM Hypercholesterolemia Hyperthyroidism - continue antibiotics - rate control on cardizem gtt, lopressor pushes PRN - BiPAP as needed to assist in work of breathing - O2 to keep SpO2 >90% - will change empiric steroids to PO - convert insulin gtt to long acting with adequate coverage - inhaled bronchodilators - monitor urine output, creatinine - PO as tolerated - continue ICU monitoring - DVT/GI prophylaxis - CT chest just performed, reviewed, official read pending but does not appear to have any pleural effusion, shows bilateral emphysematous changes and LLL consolidation with atelectasis Problem List - Problems (1) Acute on chronic respiratory failure with hypoxia and hypercapnia Code(s): J96.21 - ACUTE AND CHRONIC RESPIRATORY FAILURE WITH HYPOXIA J96.22 - ACUTE AND CHRONIC RESPIRATORY FAILURE WITH HYPERCAPNIA (2) Pneumonia Code(s): J18.9 - PNEUMONIA, UNSPECIFIED ORGANISM (3) UTI (urinary tract infection) Code(s): N39.0 - URINARY TRACT INFECTION, SITE NOT SPECIFIED Qualifiers: Qualified Code(s): N39.0 - Urinary tract infection, site not specified (4) Sepsis Code(s): A41.9 - SEPSIS, UNSPECIFIED ORGANISM Qualifiers: Qualified Code(s): A41.9 - Sepsis, unspecified organism (5) Atrial fibrillation with rapid ventricular response Code(s): I48.91 - UNSPECIFIED ATRIAL FIBRILLATION (6) Acute exacerbation of chronic obstructive pulmonary disease Code(s): J44.1 - CHRONIC OBSTRUCTIVE PULMONARY DISEASE W (ACUTE) EXACERBATION (7) Acute on chronic diastolic (congestive) heart failure Code(s): I50.33 - ACUTE ON CHRONIC DIASTOLIC (CONGESTIVE) HEART FAILURE (8) Coronary artery disease Code(s): I25.10 - ATHSCL HEART DISEASE OF [place] CORONARY ARTERY W/O ANG PCTRS Qualifiers: Qualified Code(s): I25.10 - Atherosclerotic heart disease of [place] coronary artery without angina pectoris (9) Diabetes Code(s): E11.9 - TYPE 2 DIABETES MELLITUS WITHOUT COMPLICATIONS Qualifiers: Qualified Code(s): E11.9 - Type 2 diabetes mellitus without complications (10) HTN (hypertension) Code(s): I10 - ESSENTIAL (PRIMARY) HYPERTENSION Qualifiers: Qualified Code(s): I10 - Essential (primary) hypertension (11) Hyperlipidemia Code(s): E78.5 - HYPERLIPIDEMIA, UNSPECIFIED Qualifiers: Qualified Code(s): E78.2 - Mixed hyperlipidemia
[2016-08-12] MEDS ORDERED: INSULIN DETEMIR 100 UNITS/ML MDV SQ ONE (10:31)
[2016-08-12] MEDS: INSULIN SLIDING SCALE (NOVOLOG) 1 VIAL SQ SCH ×3 (11:02→22:04)
--- NOTE | 2016-08-12 12:33 | PN ---
Progress Note, Physician Chief Complaint: Events noted Episode of recurrent paroxysmal AF with rapid ventricular response Now in sinus rhythm History of Present Illness: Patient was seen and examined. Awake and alert. Chart was reviewed Denies chest pain. Patient is in sinus rhythm at this time - Current Medication List Current Medications: Active Medications Albuterol Sulfate (Ventolin 0.083% Nebulizer Soln -) 1 amp NEB Q4H PRN PRN Reason: SHORT OF BREATH/WHEEZING Albuterol/Ipratropium (Duoneb -) 1 amp NEB TIDR [facility] Last Admin: 08/12/16 05:35 Dose: 1 amp Apixaban (Eliquis -) 5 mg PO BID [facility] Last Admin: 08/12/16 09:40 Dose: 5 mg Atorvastatin Calcium (Lipitor -) 10 mg PO HS [facility] Last Admin: 08/11/16 21:53 Dose: 10 mg Chlorhexidine Gluconate (Hibiclens For Decolonization -) 1 applic TP HS [facility] Last Admin: 08/11/16 21:54 Dose: 1 applic Furosemide (Lasix Injection -) 40 mg IVPB DAILY [facility] Last Admin: 08/12/16 09:39 Dose: 40 mg Ceftriaxone Sodium (Rocephin 1gm Ivpb (Pre-Docked)) 50 mls @ 100 mls/hr IVPB DAILY [facility] Last Admin: 08/12/16 09:39 Dose: 100 mls/hr Diltiazem HCl 125 mg/ Dextrose 125 mls @ 5 mls/hr IVPB TITR MICHAEL; 5 MG/HR PRN Reason: Protocol Last Admin: 08/11/16 19:00 Dose: Not Given Insulin Aspart (Novolog Vial Sliding Scale -) 1 vial SQ ACHS [facility] PRN Reason: Protocol Last Admin: 08/12/16 11:02 Dose: 8 units Insulin Detemir (Levemir Vial) 8 units SQ HS [facility] Methimazole (Tapazole -) 15 mg PO TID [facility] Last Admin: 08/12/16 05:38 Dose: 15 mg Metoprolol Tartrate (Lopressor Injection -) 5 mg IVPUSH Q4H PRN PRN Reason: HYPERTENSION Last Admin: 08/10/16 17:20 Dose: 5 mg Mupirocin (Bactroban Ointment (For Decolonization) -) 1 applic NS BID [facility] Stop: 08/14/16 21:59 Last Admin: 08/12/16 09:38 Dose: 1 applic Nortriptyline HCl (Pamelor -) 30 mg PO HS [facility] Last Admin: 08/11/16 21:54 Dose: 30 mg Vusgp-4-Hbpf Ethyl Esters (Lovaza -) 2 gm PO BID [facility] Last Admin: 08/12/16 09:41 Dose: 2 gm Prednisone (Deltasone -) 40 mg PO DAILY [facility] Sotalol HCl (Betapace -) 120 mg PO BID [facility] Last Admin: 08/12/16 09:40 Dose: 120 mg Valsartan (Diovan -) 80 mg PO DAILY [facility] Last Admin: 08/12/16 09:40 Dose: 80 mg - Objective Vital Signs: Vital Signs Temperature 98 F 08/12/16 10:00 Pulse Rate 72 08/12/16 10:00 Respiratory Rate 18 08/12/16 10:00 Blood Pressure 120/60 08/12/16 10:00 O2 Sat by Pulse Oximetry (%) 94 L 08/12/16 09:00 Cardiovascular: Yes: Regular Rate and Rhythm, S1, S2 Respiratory: Yes: Diminished Gastrointestinal: Yes: Normal Bowel Sounds, Soft. No: Tenderness Edema: No Additional Findings/Remarks: Review of Systems Constitutional: denies: chills, fever Cardiovascular: denies: chest pain, (+) shortness of breath, palpitation Respiratory: denies: cough, sputum production, hemoptysis Gastrointestinal: denies: nausea, vomiting, diarrhea, constipation or abdominal pain Genitourinary: No symptoms reported Musculoskeletal: No symptoms reported Labs: CBC, BMP 08/12/16 05:15 Problem List - Problems (1) Acute on chronic diastolic (congestive) heart failure Code(s): I50.33 - ACUTE ON CHRONIC DIASTOLIC (CONGESTIVE) HEART FAILURE (2) Acute on chronic respiratory failure with hypoxia and hypercapnia Code(s): J96.21 - ACUTE AND CHRONIC RESPIRATORY FAILURE WITH HYPOXIA J96.22 - ACUTE AND CHRONIC RESPIRATORY FAILURE WITH HYPERCAPNIA (3) Atrial fibrillation with rapid ventricular response Code(s): I48.91 - UNSPECIFIED ATRIAL FIBRILLATION (4) CHF (congestive heart failure) Code(s): I50.9 - HEART FAILURE, UNSPECIFIED Qualifiers: Qualified Code(s): I50.33 - Acute on chronic diastolic (congestive) heart failure (5) Paroxysmal atrial fibrillation Code(s): I48.0 - PAROXYSMAL ATRIAL FIBRILLATION (6) Acute exacerbation of chronic obstructive pulmonary disease Code(s): J44.1 - CHRONIC OBSTRUCTIVE PULMONARY DISEASE W (ACUTE) EXACERBATION (7) Anemia Code(s): D64.9 - ANEMIA, UNSPECIFIED Qualifiers: Qualified Code(s): D64.9 - Anemia, unspecified (8) COPD (chronic obstructive pulmonary disease) Code(s): J44.9 - CHRONIC OBSTRUCTIVE PULMONARY DISEASE, UNSPECIFIED Qualifiers : Qualified Code(s): J43.2 - Centrilobular emphysema (9) Cardiomyopathy as manifestation of underlying disease Code(s): I43 - CARDIOMYOPATHY IN DISEASES CLASSIFIED ELSEWHERE (10) Coronary artery disease Code(s): I25.10 - ATHSCL HEART DISEASE OF [place] CORONARY ARTERY W/O ANG PCTRS Qualifiers: Qualified Code(s): I25.10 - Atherosclerotic heart disease of [place] coronary artery without angina pectoris (11) Diabetes Code(s): E11.9 - TYPE 2 DIABETES MELLITUS WITHOUT COMPLICATIONS Qualifiers: Qualified Code(s): E11.9 - Type 2 diabetes mellitus without complications (12) Diastolic dysfunction with chronic heart failure Code(s): I50.32 - CHRONIC DIASTOLIC (CONGESTIVE) HEART FAILURE (13) Gastric AV malformation Code(s): Q27.33 - ARTERIOVENOUS MALFORMATION OF DIGESTIVE SYSTEM VESSEL (14) HTN (hypertension) Code(s): I10 - ESSENTIAL (PRIMARY) HYPERTENSION Qualifiers: Qualified Code(s): I10 - Essential (primary) hypertension (15) Hyperlipidemia Code(s): E78.5 - HYPERLIPIDEMIA, UNSPECIFIED Qualifiers: Qualified Code(s): E78.2 - Mixed hyperlipidemia (16) Hyperthyroidism Code(s): E05.90 - THYROTOXICOSIS, UNSP WITHOUT THYROTOXIC CRISIS OR STORM (17) Pneumonia Code(s): J18.9 - PNEUMONIA, UNSPECIFIED ORGANISM Assessment/Plan 1. Acute on chronic hypercapeniec/hypoxemic respiratory failure related to COPD/ emphysema exacerbation and pneumonia 2. Acute on chronic LV diastolic failure 3. Non obstructive CAD, angina pectoris 4. Paroxysmal atrial fibrillation with RVR currently in sinus rhythm [id number] score of 7 on NOAC 4. HTN 5. NIDDM 6. Hyperlipidemia 7. Parkinson's disease 8. Hyperthyroidism 9. Anemia 10. History of gastritis - gastric AVM post cautery PLAN: 1. Continue Sotalol 120 mg BID, Diovan 80 mg QD, Eliquis 5 mg BID, Lovaza 2 g BID and Lipitor 10 mg QHS. Consider adding Cardizem 2. IV diuresis (Lasix) with monitoring renal function and electrolytes 3. Empiric antibiotics, steroids taper, Bronchodilators, O2 and BIPAP as needed 4. Continue Tapazole 5. GI prophylaxis Further plans are to follow Ronn Grimes MD
[2016-08-12] MEDS ORDERED: PT OWN MED DRAWER 7, Y5N ONE ×3 (13:21→21:06)
[2016-08-12] MEDS: dilTIAZem HCL 30 MG TABLET (FP) PO SCH ×2 (14:33→22:02)
--- NOTE | 2016-08-12 19:11 | PN ---
Physical Exam: SUBJECTIVE: Patient seen and examined Patient remains in the ICU. Feels better with less shortness of breath. Off BiPAP now. Started on insulin gtt overnight due tp having elevated sugar. OBJECTIVE: Vital Signs Period Temp Pulse Resp BP Sys/Pinedo Pulse Ox Last 24 Hr 97.8 F-98.2 F 57-75 18-30 98-123/50-76 94-96 GENERAL: The patient is awake, alert, and fully oriented, in no acute distress. HEAD: Normal with no signs of trauma. EYES: PERRL, extraocular movements intact, sclera anicteric, conjunctiva clear. No ptosis. ENT: Ears normal, oropharynx clear without exudates, moist mucous membranes. NECK: Trachea midline, full range of motion, supple. LUNGS: Decreased Breath sounds BL, positive for wheezes bl, no crackles, no accessory muscle use. HEART: Irregularly irregular, S1, S2 positive, MANISHA 2/6 , no rub or gallop. ABDOMEN: Soft, nontender, nondistended, normoactive bowel sounds, no guarding, no rebound, no hepatosplenomegaly, no masses. EXTREMITIES: 2+ pulses, warm, well-perfused, no edema. NEUROLOGICAL: Cranial nerves II through XII grossly intact. Normal speech, gait not observed. PSYCH: Normal mood, normal affect. SKIN: Warm, dry, normal turgor, no rashes or lesions noted Laboratory Results - last 24 hr 08/11/16 08/12/16 08/12/16 22:30 00:55 01:58 WBC RBC Hgb Hct MCV MCHC RDW Plt Count MPV Neutrophils % Lymphocytes % Monocytes % Puncture Site ABG pH ABG pCO2 at Pt Temp ABG pO2 at Pt Temp ABG HCO3 ABG O2 Sat (Measured) ABG O2 Content ABG Base Excess Torito Test O2 Delivery Device Oxygen Flow Rate PEEP POC Glucometer 386.82152 285.19233 Random Glucose 436 H* D 08/12/16 08/12/16 08/12/16 03:09 04:24 05:15 WBC 20.8 H RBC 4.63 Hgb 9.8 L Hct 33.1 MCV 71.4 L MCHC 29.5 L RDW 28.1 H Plt Count 236 MPV 9.4 Neutrophils % 94.0 H Lymphocytes % 5.0 L D Monocytes % 1.0 L Puncture Site ABG pH ABG pCO2 at Pt Temp ABG pO2 at Pt Temp ABG HCO3 ABG O2 Sat (Measured) ABG O2 Content ABG Base Excess Torito Test O2 Delivery Device Oxygen Flow Rate PEEP POC Glucometer 196.66968 123.08657 Random Glucose 08/12/16 08/12/16 08/12/16 05:53 07:03 07:30 WBC RBC Hgb Hct MCV MCHC RDW Plt Count MPV Neutrophils % Lymphocytes % Monocytes % Puncture Site Right radial ABG pH 7.49 H ABG pCO2 at Pt Temp 60.0 H ABG pO2 at Pt Temp 64.5 L ABG HCO3 45.2 H* ABG O2 Sat (Measured) 91.9 ABG O2 Content 12.6 L ABG Base Excess 18.9 H* Torito Test Positive O2 Delivery Device Ventimask Oxygen Flow Rate 40% PEEP 0.0 POC Glucometer 151.85160 228.45221 Random Glucose 08/12/16 09:14 WBC RBC Hgb Hct MCV MCHC RDW Plt Count MPV Neutrophils % Lymphocytes % Monocytes % Puncture Site ABG pH ABG pCO2 at Pt Temp ABG pO2 at Pt Temp ABG HCO3 ABG O2 Sat (Measured) ABG O2 Content ABG Base Excess Torito Test O2 Delivery Device Oxygen Flow Rate PEEP POC Glucometer 316.68158 Random Glucose Active Medications Generic Name Dose Route Start Last Admin Trade Name Freq PRN Reason Stop Dose Admin Albuterol Sulfate 1 amp 08/10/16 20:31 Ventolin 0.083% Nebulizer Soln - NEB Q4H PRN SHORT OF BREATH/WHEEZING Albuterol/Ipratropium 1 amp 08/09/16 14:00 08/12/16 13:26 Duoneb - NEB 1 amp TIDR MICHAEL Administration Apixaban 5 mg 08/09/16 22:00 08/12/16 09:40 Eliquis - PO 5 mg BID MICHAEL Administration Atorvastatin Calcium 10 mg 08/09/16 22:00 08/11/16 21:53 Lipitor - PO 10 mg HS MICHAEL Administration Chlorhexidine Gluconate 1 applic 08/09/16 22:00 08/11/16 21:54 Hibiclens For Decolonization - TP 1 applic HS MICHAEL Administration Diltiazem HCl 30 mg 08/12/16 14:00 08/12/16 14:33 Cardizem - PO 30 mg TID MICHAEL Administration Furosemide 40 mg 08/10/16 10:00 08/12/16 09:39 Lasix Injection - IVPB 40 mg DAILY MICHAEL Administration Ceftriaxone Sodium 50 mls @ 100 mls/hr 08/10/16 14:45 08/12/16 09:39 Rocephin 1gm Ivpb (Pre-Docked) IVPB 100 mls/hr DAILY MICHAEL Administration Insulin Aspart 1 vial 08/12/16 18:15 Novolog Vial Sliding Scale - SQ Q4HPO [facility] Protocol Insulin Detemir 8 units 08/12/16 22:00 Levemir Vial SQ HS MICHAEL Methimazole 15 mg 08/09/16 22:00 08/12/16 05:38 Tapazole - PO 15 mg TID MICHAEL Administration Metoprolol Tartrate 5 mg 08/09/16 13:04 08/10/16 17:20 Lopressor Injection - IVPUSH 5 mg Q4H PRN Administration HYPERTENSION Mupirocin 1 applic 08/09/16 22:00 08/12/16 09:38 Bactroban Ointment (For Decolonization) - NS 08/14/16 21:59 1 applic BID MICHAEL Administration Nortriptyline HCl 30 mg 08/09/16 22:00 08/11/16 21:54 Pamelor - PO 30 mg HS MICHAEL Administration [id number]-7-[id number] Ethyl Esters 2 gm 08/09/16 22:00 08/12/16 09:41 Lovaza - PO 2 gm BID MICHAEL Administration Prednisone 40 mg 08/13/16 10:00 Deltasone - PO DAILY MICHAEL Sotalol HCl 120 mg 08/11/16 10:00 08/12/16 09:40 Betapace - PO 120 mg BID MICHAEL Administration Valsartan 80 mg 08/10/16 10:00 08/12/16 09:40 Diovan - PO 80 mg DAILY MICHAEL Administration ASSESSMENT/PLAN: 86 yr old woman with multiple co-morbidities BIBEMS from [facility] for difficulty breathing, was found to be in rapid Afib in the ED admitted for sepsis likely from pna, rapid Afib, and hypoxia/respiratory distress. # Acute Sepsis with leukocytosis improving 20k now ,due to Strept Pneumo. On IV rocephin 1gm iv daily and on Solu medrol IV continue #Afib withcontrolled rate now,continue sotalol 120mg po bid ,continue cardizem drip and titrtate as needed , On abixapan 5mg po bid #Respiratory distress/hypoxia - improving on and off Bipap; duonebs TID prn , solumedrol switched to po prednisone . #T2DM novolog sliding scale with BGM ACHS #HTN/CHF Lopressor 5mg IVPush q6h prn , diovan 80m g po daily, lasix 40mg IVPB daily #CAD atorvastatin 10mg continue #Hyperthyroidism methiazole 15mg po TID #Diet: diabetic/low sodium #DVT prophylaxis - on Noac; Eliquis Visit type - Emergency Visit Emergency Visit: Yes ED Registration Date: 08/09/16 Care time: The patient presented to the Emergency Department on the above date and was hospitalized for further evaluation of their emergent condition. - New Patient This patient is new to me today: No - Critical Care Critical Care patient: No
[2016-08-12] MEDS: ATORVASTATIN CA 10 MG TABLET (FP) PO SCH (22:02)
[2016-08-12] MEDS: NORTRIPTYLINE HCL 10 MG CAPSULE PO SCH (22:04)
[2016-08-12] MEDS: CHLORHEXIDINE GLUCONATE 4% CLEANSER FOR DECOLONIZATION TP SCH (22:04)
[2016-08-12] MEDS: INSULIN DETEMIR 100 UNITS/ML MDV SQ SCH (22:05)
[2016-08-13] MEDS ORDERED: HEMOQUE TEST 1 EACH EACH ONE (01:33)
[2016-08-13] MEDS: INSULIN SLIDING SCALE (NOVOLOG) 1 VIAL SQ SCH ×6 (02:03→21:14)
[2016-08-13] MEDS: ALBUTEROL SO4 2.5/IPRATROPIUM 0.5 INH SOL 3 ML VIAL.NEB. NEB SCH ×3 (06:02→22:19)
[2016-08-13] MEDS: dilTIAZem HCL 30 MG TABLET (FP) PO SCH ×3 (06:02→21:12)
[2016-08-13] MEDS: METHIMAZOLE 5 MG TABLET (FP) PO SCH ×4 (06:02→21:12)
[2016-08-13 06:19] LABS: BASOPHIL 0.4 % (0-2.0); EOSINOPHIL 0.2 % (0-4.5); MCH 21.1 pg (25.7-33.7); MCHC 29.5 g/dl (32.0-36.0); MEAN CELL VOLUME 71.3 fl (80-96); MEAN PLT VOLUME 9.1 fl (7.5-11.1); NEUTROPHILS 91.8 % (42.8-82.8); PLATELET COUNT 189 K/MM3 (134-434); RDW 27.4 % (11.6-15.6); WHITE BLOOD COUNT 16.6 K/mm3 (4.0-10.0)
[2016-08-13 06:47] LABS: ALBUMIN 1.8 g/dl (3.4-5.0); GLUCOSE,RANDOM 72 mg/dL (74-106); MAGNESIUM 2.1 mg/dL (1.8-2.4)
[2016-08-13 06:52] LABS: ALK PHOS 61 U/L (45-117); BILIRUBIN,TOTAL 0.3 mg/dL (0.2-1.0); CREATININE 0.6 mg/dL (0.55-1.02); PHOSPHOROUS 3.1 mg/dL (2.5-4.9); SGPT/ALT 18 U/L (12-78); TOT PROT 4.9 g/dl (6.4-8.2)
[2016-08-13 07:01] LABS: SGOT/AST 25 U/L (15-37)
[2016-08-13 07:20] LABS: ANISOCYTOSIS 2+; HYPOCHROMIA 2+; MICROCYTOSIS 2+; PLATELET COMMENT2 NO CLOTTING DETECTED; PLATELET ESTIMATE ADEQUATE (NORMAL); POIKILOCYTOSIS 2+; POLYCHROMASIA 2+
--- NOTE | 2016-08-13 07:25 | PN ---
Progress Note, Physician Chief Complaint: ID Remains stable Ceftriaxone day 4 of treatment for PNA - Current Medication List Current Medications: Active Medications Albuterol Sulfate (Ventolin 0.083% Nebulizer Soln -) 1 amp NEB Q4H PRN PRN Reason: SHORT OF BREATH/WHEEZING Albuterol/Ipratropium (Duoneb -) 1 amp NEB TIDR [facility] Last Admin: 08/13/16 06:02 Dose: 1 amp Apixaban (Eliquis -) 5 mg PO BID [facility] Last Admin: 08/12/16 22:03 Dose: 5 mg Atorvastatin Calcium (Lipitor -) 10 mg PO [facility] Last Admin: 08/12/16 22:02 Dose: 10 mg Chlorhexidine Gluconate (Hibiclens For Decolonization -) 1 applic TP [facility] Last Admin: 08/12/16 22:04 Dose: 1 applic Diltiazem HCl (Cardizem -) 30 mg PO TID [facility] Last Admin: 08/13/16 06:02 Dose: 30 mg Furosemide (Lasix Injection -) 40 mg IVPB DAILY [facility] Last Admin: 08/12/16 09:39 Dose: 40 mg Ceftriaxone Sodium (Rocephin 1gm Ivpb (Pre-Docked)) 50 mls @ 100 mls/hr IVPB DAILY [facility] Last Admin: 08/12/16 09:39 Dose: 100 mls/hr Insulin Aspart (Novolog Vial Sliding Scale -) 1 vial SQ Q4HPO [facility] PRN Reason: Protocol Last Admin: 08/13/16 06:03 Dose: Not Given Insulin Detemir (Levemir Vial) 8 units SQ [facility] Last Admin: 08/12/16 22:05 Dose: 8 units Methimazole (Tapazole -) 15 mg PO TID [facility] Last Admin: 08/13/16 06:02 Dose: 15 mg Metoprolol Tartrate (Lopressor Injection -) 5 mg IVPUSH Q4H PRN PRN Reason: HYPERTENSION Last Admin: 08/10/16 17:20 Dose: 5 mg Mupirocin (Bactroban Ointment (For Decolonization) -) 1 applic NS BID [facility] Stop: 08/14/16 21:59 Last Admin: 08/12/16 22:03 Dose: 1 applic Nortriptyline HCl (Pamelor -) 30 mg PO [facility] Last Admin: 08/12/16 22:04 Dose: 30 mg [id number]-1-[id number] Ethyl Esters (Lovaza -) 2 gm PO BID [facility] Last Admin: 08/12/16 22:02 Dose: 2 gm Prednisone (Deltasone -) 40 mg PO DAILY [facility] Sotalol HCl (Betapace -) 120 mg PO BID [facility] Last Admin: 08/12/16 22:02 Dose: 120 mg Valsartan (Diovan -) 80 mg PO DAILY [facility] Last Admin: 08/12/16 09:40 Dose: 80 mg - Objective Vital Signs: Vital Signs Temperature 98.0 F 08/13/16 06:00 Pulse Rate 68 08/13/16 06:00 Respiratory Rate 22 08/13/16 06:00 Blood Pressure 143/63 08/13/16 06:00 O2 Sat by Pulse Oximetry (%) 96 08/12/16 21:00 Constitutional: Yes: No Distress Neck: Yes: WNL, Supple Cardiovascular: Yes: Regular Rate and Rhythm, S1, S2 Respiratory: Yes: WNL, Regular, CTA Bilaterally, Diminished Gastrointestinal: Yes: WNL, Normal Bowel Sounds, Soft, Tenderness Edema: No Labs: CBC, BMP 08/13/16 05:00 08/13/16 05:00 INR, PTT INR 1.17 (0.82-1.09) H 08/09/16 09:30 Problem List - Problems (1) Atrial fibrillation with rapid ventricular response Code(s): I48.91 - UNSPECIFIED ATRIAL FIBRILLATION (2) Sepsis Code(s): A41.9 - SEPSIS, UNSPECIFIED ORGANISM Qualifiers: Qualified Code(s): A41.9 - Sepsis, unspecified organism (3) Pneumococcal pneumonia Code(s): J13 - PNEUMONIA DUE TO STREPTOCOCCUS PNEUMONIAE Assessment/Plan Microbiology 08/10/16 12:16 Urine For Antigen Detection Legionella Antigen - Final 08/10/16 12:16 Urine For Antigen Detection Streptococcus pneumoniae Antigen (M - Final Laboratory Tests 08/12/16 08/13/16 07:30 05:00 WBC 16.6 H Hgb 8.5 L D Hct 28.8 L Plt Count 189 ABG pH 7.49 H ABG pCO2 at Pt Temp 60.0 H ABG pO2 at Pt Temp 64.5 L Assessment Large consolidation LLL no empyema or effusion Plan Plan is to continue Ceftriaxone few more days [facility]on [facility]
[2016-08-13 07:43] LABS: ARTERIAL BLD GAS O2 SATURATION 94.8 % (90-98.9); ARTERIAL BLOOD GAS BASE EXCESS 20.1 meq/l (-2-2); ARTERIAL BLOOD GAS PO2 77.6 mmHg (68-100); ARTERIAL BLOOD GAS pH 7.43 (7.35-7.45)
[2016-08-13 07:46] LABS: ALLENS TEST POSITIVE; ART PUNCT SITE RIGHT RADIAL; LPM/O2% 3L; PT. ON O2? YES; TYPE OF O2 NASAL O2
[2016-08-13 07:49] LABS: ARTERIAL BLOOD GAS HCO3 47.7 meq/L (22-26)
[2016-08-13 08:10] LABS: ANION GAP 3 (8-16); CO2 49 mmol/L (21-32)
--- NOTE | 2016-08-13 09:58 | PN ---
Progress Note, Physician Chief Complaint: Remains in sinus rhythm Not in distress History of Present Illness: Patient was seen and examined. Awake and alert. Chart was reviewed Denies chest pain, SOB or palpitations. - Current Medication List Current Medications: Active Medications Albuterol Sulfate (Ventolin 0.083% Nebulizer Soln -) 1 amp NEB Q4H PRN PRN Reason: SHORT OF BREATH/WHEEZING Albuterol/Ipratropium (Duoneb -) 1 amp NEB TIDR [facility] Last Admin: 08/13/16 06:02 Dose: 1 amp Apixaban (Eliquis -) 5 mg PO BID [facility] Last Admin: 08/12/16 22:03 Dose: 5 mg Atorvastatin Calcium (Lipitor -) 10 mg PO [facility] Last Admin: 08/12/16 22:02 Dose: 10 mg Chlorhexidine Gluconate (Hibiclens For Decolonization -) 1 applic TP [facility] Last Admin: 08/12/16 22:04 Dose: 1 applic Diltiazem HCl (Cardizem -) 30 mg PO TID [facility] Last Admin: 08/13/16 06:02 Dose: 30 mg Furosemide (Lasix Injection -) 40 mg IVPB DAILY [facility] Last Admin: 08/12/16 09:39 Dose: 40 mg Ceftriaxone Sodium (Rocephin 1gm Ivpb (Pre-Docked)) 50 mls @ 100 mls/hr IVPB DAILY [facility] Last Admin: 08/12/16 09:39 Dose: 100 mls/hr Insulin Aspart (Novolog Vial Sliding Scale -) 1 vial SQ Q4HPO [facility] PRN Reason: Protocol Last Admin: 08/13/16 06:03 Dose: Not Given Insulin Detemir (Levemir Vial) 8 units SQ [facility] Last Admin: 08/12/16 22:05 Dose: 8 units Methimazole (Tapazole -) 15 mg PO TID [facility] Last Admin: 08/13/16 06:02 Dose: 15 mg Metoprolol Tartrate (Lopressor Injection -) 5 mg IVPUSH Q4H PRN PRN Reason: HYPERTENSION Last Admin: 08/10/16 17:20 Dose: 5 mg Mupirocin (Bactroban Ointment (For Decolonization) -) 1 applic NS BID [facility] Stop: 08/14/16 21:59 Last Admin: 01/21/17 22:03 Dose: 1 applic Nortriptyline HCl (Pamelor -) 30 mg PO HS [facility] Last Admin: 08/12/16 22:04 Dose: 30 mg Hfrgk-6-Vvhq Ethyl Esters (Lovaza -) 2 gm PO BID [facility] Last Admin: 08/12/16 22:02 Dose: 2 gm Prednisone (Deltasone -) 40 mg PO DAILY [facility] Sotalol HCl (Betapace -) 120 mg PO BID [facility] Last Admin: 08/12/16 22:02 Dose: 120 mg Valsartan (Diovan -) 80 mg PO DAILY [facility] Last Admin: 08/12/16 09:40 Dose: 80 mg - Objective Vital Signs: Vital Signs Temperature 98.0 F 08/13/16 06:00 Pulse Rate 68 08/13/16 06:00 Respiratory Rate 22 08/13/16 06:00 Blood Pressure 143/63 08/13/16 06:00 O2 Sat by Pulse Oximetry (%) 96 08/12/16 21:00 Neck: Yes: Supple Cardiovascular: Yes: Regular Rate and Rhythm, S1, S2 Respiratory: Yes: Diminished Gastrointestinal: Yes: Normal Bowel Sounds, Soft. No: Tenderness Edema: No Additional Findings/Remarks: Review of Systems Constitutional: denies: chills, fever Cardiovascular: denies: chest pain, (+) shortness of breath, palpitation Respiratory: denies: cough, sputum production, hemoptysis Gastrointestinal: denies: nausea, vomiting, diarrhea, constipation or abdominal pain Genitourinary: No symptoms reported Musculoskeletal: No symptoms reported Labs: CBC, BMP 08/13/16 05:00 08/13/16 05:00 Problem List - Problems (1) Acute on chronic diastolic (congestive) heart failure Code(s): I50.33 - ACUTE ON CHRONIC DIASTOLIC (CONGESTIVE) HEART FAILURE (2) Acute on chronic respiratory failure with hypoxia and hypercapnia Code(s): J96.21 - ACUTE AND CHRONIC RESPIRATORY FAILURE WITH HYPOXIA J96.22 - ACUTE AND CHRONIC RESPIRATORY FAILURE WITH HYPERCAPNIA (3) Atrial fibrillation with rapid ventricular response Code(s): I48.91 - UNSPECIFIED ATRIAL FIBRILLATION (4) CHF (congestive heart failure) Code(s): I50.9 - HEART FAILURE, UNSPECIFIED Qualifiers: Qualified Code(s): I50.33 - Acute on chronic diastolic (congestive) heart failure (5) Paroxysmal atrial fibrillation Code(s): I48.0 - PAROXYSMAL ATRIAL FIBRILLATION (6) Acute exacerbation of chronic obstructive pulmonary disease Code(s): J44.1 - CHRONIC OBSTRUCTIVE PULMONARY DISEASE W (ACUTE) EXACERBATION (7) Anemia Code(s): D64.9 - ANEMIA, UNSPECIFIED Qualifiers: Qualified Code(s): D64.9 - Anemia, unspecified (8) COPD (chronic obstructive pulmonary disease) Code(s): J44.9 - CHRONIC OBSTRUCTIVE PULMONARY DISEASE, UNSPECIFIED Qualifiers : Qualified Code(s): J43.2 - Centrilobular emphysema (9) Cardiomyopathy as manifestation of underlying disease Code(s): I43 - CARDIOMYOPATHY IN DISEASES CLASSIFIED ELSEWHERE (10) Coronary artery disease Code(s): I25.10 - ATHSCL HEART DISEASE OF [place] CORONARY ARTERY W/O ANG PCTRS Qualifiers: Qualified Code(s): I25.10 - Atherosclerotic heart disease of [place] coronary artery without angina pectoris (11) Diabetes Code(s): E11.9 - TYPE 2 DIABETES MELLITUS WITHOUT COMPLICATIONS Qualifiers: Qualified Code(s): E11.9 - Type 2 diabetes mellitus without complications (12) Diastolic dysfunction with chronic heart failure Code(s): I50.32 - CHRONIC DIASTOLIC (CONGESTIVE) HEART FAILURE (13) Gastric AV malformation Code(s): Q27.33 - ARTERIOVENOUS MALFORMATION OF DIGESTIVE SYSTEM VESSEL (14) HTN (hypertension) Code(s): I10 - ESSENTIAL (PRIMARY) HYPERTENSION Qualifiers: Qualified Code(s): I10 - Essential (primary) hypertension (15) Hyperlipidemia Code(s): E78.5 - HYPERLIPIDEMIA, UNSPECIFIED Qualifiers: Qualified Code(s): E78.2 - Mixed hyperlipidemia (16) Hyperthyroidism Code(s): E05.90 - THYROTOXICOSIS, UNSP WITHOUT THYROTOXIC CRISIS OR STORM (17) Pneumonia Code(s): J18.9 - PNEUMONIA, UNSPECIFIED ORGANISM Assessment/Plan 1. Acute on chronic hypercapeniec/hypoxemic respiratory failure related to COPD/ emphysema exacerbation and pneumonia 2. Acute on chronic LV diastolic failure 3. Non obstructive CAD, angina pectoris 4. Paroxysmal atrial fibrillation with periods of RVR currently in sinus rhythm [id number] score of 7 on NOAC 4. HTN 5. NIDDM 6. Hyperlipidemia 7. Parkinson's disease 8. Hyperthyroidism 9. Anemia 10. History of gastritis - gastric AVM post cautery PLAN: 1. Continue Sotalol 120 mg BID, Diovan 80 mg QD, Eliquis 5 mg BID, Lovaza 2 g BID and Lipitor 10 mg QHS. Continue Cardizem as tolerated 2. IV diuresis (Lasix) with monitoring renal function and electrolytes 3. Empiric antibiotics as per ID, steroids taper, Bronchodilators, O2 and BIPAP as needed 4. Continue Tapazole 5. GI prophylaxis Further plans are to follow Ronn Grimes MD
[2016-08-13] MEDS: CEFTRIAXONE 50 ML IVPB SCH (10:02)
[2016-08-13] MEDS: MUPIROCIN 2% TOPICAL OINTMENT FOR DECOLONIZATION NS SCH ×2 (10:04→21:13)
[2016-08-13] MEDS: SOTALOL HCL 80 MG TABLET (FP) PO SCH ×2 (10:04→21:12)
[2016-08-13] MEDS: predniSONE 20 MG TABLET (UD) PO SCH (10:06)
[2016-08-13] MEDS: OMEGA-3 ACID ETHYL ESTERS (FATTY-ACIDS) 1 GM CAPSULE (FP) PO SCH ×2 (10:08→21:12)
[2016-08-13] MEDS: VALSARTAN 80 MG TABLET (UD) PO SCH (10:09)
[2016-08-13] MEDS: FUROSEMIDE 40 MG/4 ML INJECTABLE VIAL IVPB SCH (10:10)
[2016-08-13] MEDS: APIXABAN 5 MG TABLET PO SCH ×2 (10:28→21:12)
--- NOTE | 2016-08-13 10:48 | PN ---
Progress Note (short form) - Note Progress Note: PULMONARY/CCM Pt seen and examined in the ICU. No events overnight. Denies shortness of breath. Minimal nonproductive cough. No fevers recorded. Appears very depressed. Last Vital Signs Temp Pulse Resp BP Pulse Ox 98.5 F 73 19 115/62 97 08/13/16 10:00 08/13/16 10:00 08/13/16 10:00 08/13/16 10:00 08/13/16 09:00 Intake & Output 08/10/16 08/11/16 08/12/16 08/13/16 23:59 23:59 23:59 23:59 Intake Total 566 759 2287 100 Output Total 2200 1150 1300 500 Balance -1940 -670 266 -400 Weight 105 lb 8 oz 105 lb 105 lb 1 oz 100 lb 5 oz Gen: appears depressed, breathing nonlabored Heart: RRR Lung: distant breath sounds, no wheezes appreciated Abd: soft, nontender Ext: no edema CBC, BMP 08/13/16 05:00 08/13/16 05:00 Active Medications Albuterol Sulfate (Ventolin 0.083% Nebulizer Soln -) 1 amp NEB Q4H PRN PRN Reason: SHORT OF BREATH/WHEEZING Albuterol/Ipratropium (Duoneb -) 1 amp NEB TIDR [facility] Last Admin: 08/13/16 06:02 Dose: 1 amp Apixaban (Eliquis -) 5 mg PO BID [facility] Last Admin: 08/13/16 10:28 Dose: 5 mg Atorvastatin Calcium (Lipitor -) 10 mg PO [facility] Last Admin: 08/12/16 22:02 Dose: 10 mg Chlorhexidine Gluconate (Hibiclens For Decolonization -) 1 applic TP [facility] Last Admin: 08/12/16 22:04 Dose: 1 applic Diltiazem HCl (Cardizem -) 30 mg PO TID [facility] Last Admin: 08/13/16 06:02 Dose: 30 mg Furosemide (Lasix Injection -) 40 mg IVPB DAILY [facility] Last Admin: 08/13/16 10:10 Dose: 40 mg Ceftriaxone Sodium (Rocephin 1gm Ivpb (Pre-Docked)) 50 mls @ 100 mls/hr IVPB DAILY [facility] Last Admin: 08/13/16 10:02 Dose: 100 mls/hr Insulin Aspart (Novolog Vial Sliding Scale -) 1 vial SQ Q4HPO [facility] PRN Reason: Protocol Last Admin: 08/13/16 10:03 Dose: 6 units Insulin Detemir (Levemir Vial) 8 units SQ [facility] Last Admin: 08/12/16 22:05 Dose: 8 units Methimazole (Tapazole -) 15 mg PO TID [facility] Last Admin: 08/13/16 06:02 Dose: 15 mg Metoprolol Tartrate (Lopressor Injection -) 5 mg IVPUSH Q4H PRN PRN Reason: HYPERTENSION Last Admin: 08/10/16 17:20 Dose: 5 mg Mupirocin (Bactroban Ointment (For Decolonization) -) 1 applic NS BID [facility] Stop: 08/14/16 21:59 Last Admin: 08/13/16 10:04 Dose: 1 applic Nortriptyline HCl (Pamelor -) 30 mg PO [facility] Last Admin: 08/12/16 22:04 Dose: 30 mg Uzlqk-2-Qkrq Ethyl Esters (Lovaza -) 2 gm PO BID [facility] Last Admin: 08/13/16 10:08 Dose: 2 gm Prednisone (Deltasone -) 40 mg PO DAILY [facility] Last Admin: 08/13/16 10:06 Dose: 40 mg Sotalol HCl (Betapace -) 120 mg PO BID [facility] Last Admin: 08/13/16 10:04 Dose: 120 mg Valsartan (Diovan -) 80 mg PO DAILY [facility] Last Admin: 08/13/16 10:09 Dose: 80 mg A/P Pneumonia UTI Sepsis Atrial Fibrillation with RVR improving Acute on Chronic LV Diastolic Heart Failure likely rate related CAD Acute COPD Exacerbation HTN DM Hypercholesterolemia Hyperthyroidism - continue antibiotics - rate control on sotalol, cardizem, lopressor pushes PRN - BiPAP as needed to assist in work of breathing - O2 to keep SpO2 >90% - continue prednisone - glucose control - inhaled bronchodilators - monitor urine output, creatinine - PO as tolerated - DVT/GI prophylaxis - can monitor on telemetry Problem List - Problems (1) Acute on chronic respiratory failure with hypoxia and hypercapnia Code(s): J96.21 - ACUTE AND CHRONIC RESPIRATORY FAILURE WITH HYPOXIA J96.22 - ACUTE AND CHRONIC RESPIRATORY FAILURE WITH HYPERCAPNIA (2) Pneumonia Code(s): J18.9 - PNEUMONIA, UNSPECIFIED ORGANISM (3) UTI (urinary tract infection) Code(s): N39.0 - URINARY TRACT INFECTION, SITE NOT SPECIFIED Qualifiers: Qualified Code(s): N39.0 - Urinary tract infection, site not specified (4) Sepsis Code(s): A41.9 - SEPSIS, UNSPECIFIED ORGANISM Qualifiers: Qualified Code(s): A41.9 - Sepsis, unspecified organism (5) Atrial fibrillation with rapid ventricular response Code(s): I48.91 - UNSPECIFIED ATRIAL FIBRILLATION (6) Acute exacerbation of chronic obstructive pulmonary disease Code(s): J44.1 - CHRONIC OBSTRUCTIVE PULMONARY DISEASE W (ACUTE) EXACERBATION (7) Acute on chronic diastolic (congestive) heart failure Code(s): I50.33 - ACUTE ON CHRONIC DIASTOLIC (CONGESTIVE) HEART FAILURE (8) Coronary artery disease Code(s): I25.10 - ATHSCL HEART DISEASE OF [place] CORONARY ARTERY W/O ANG PCTRS Qualifiers: Qualified Code(s): I25.10 - Atherosclerotic heart disease of [place] coronary artery without angina pectoris (9) Diabetes Code(s): E11.9 - TYPE 2 DIABETES MELLITUS WITHOUT COMPLICATIONS Qualifiers: Qualified Code(s): E11.9 - Type 2 diabetes mellitus without complications (10) HTN (hypertension) Code(s): I10 - ESSENTIAL (PRIMARY) HYPERTENSION Qualifiers: Qualified Code(s): I10 - Essential (primary) hypertension (11) Hyperlipidemia Code(s): E78.5 - HYPERLIPIDEMIA, UNSPECIFIED Qualifiers: Qualified Code(s): E78.2 - Mixed hyperlipidemia
--- NOTE | 2016-08-13 19:13 | PN ---
Physical Exam: SUBJECTIVE: Patient seen and examined in the ICU NO new wvents overnight , patient is comfortable with no acute distress, no shortness of breath. OBJECTIVE: Vital Signs Period Temp Pulse Resp BP Sys/Pinedo Pulse Ox Last 24 Hr 98 F-98.5 F 55-73 18-30 93-143/43-71 96-97 GENERAL: The patient is awake, alert, and fully oriented, in no acute distress. HEAD: Normal with no signs of trauma. EYES: PERRL, extraocular movements intact, sclera anicteric, conjunctiva clear. No ptosis. ENT: Ears normal, nares patent, oropharynx clear without exudates, moist mucous membranes. NECK: Trachea midline, full range of motion, supple. LUNGS: decreased Breath sounds at the basis, positive for wheezing but less no crackles, no accessory muscle use. HEART: irregularli irregular, rate controlled,S1 S2 positive, MANISHA 2/6, no rub or gallop. ABDOMEN: Soft, nontender, nondistended, normoactive bowel sounds, no guarding, no rebound, no hepatosplenomegaly, no masses. EXTREMITIES: 2+ pulses, warm, well-perfused, no edema. NEUROLOGICAL: Cranial nerves II through XII grossly intact. Normal speech, gait not observed. PSYCH: Normal mood, normal affect. SKIN: Warm, dry, normal turgor, no rashes or lesions noted Laboratory Results - last 24 hr 08/12/16 08/12/16 08/13/16 18:20 21:12 01:36 WBC RBC Hgb Hct MCV MCHC RDW Plt Count MPV Neutrophils % Lymphocytes % Monocytes % Eosinophils % Basophils % Differential Comment Platelet Estimate Platelet Comment Polychromasia Hypochromic-Microcytic Poikilocytosis Anisocytosis Microcytosis Puncture Site ABG pH ABG pCO2 at Pt Temp ABG pO2 at Pt Temp ABG HCO3 ABG O2 Sat (Measured) ABG O2 Content ABG Base Excess Torito Test O2 Delivery Device Oxygen Flow Rate Sodium Potassium Chloride Carbon Dioxide Anion Gap BUN Creatinine Creat Clearance w eGFR POC Glucometer 302.99650 157.33410 Random Glucose 461 H* Calcium Phosphorus Magnesium Total Bilirubin AST ALT Alkaline Phosphatase Total Protein Albumin 08/13/16 08/13/16 08/13/16 05:00 05:00 05:48 WBC 16.6 H RBC 4.04 Hgb 8.5 L D Hct 28.8 L MCV 71.3 L MCHC 29.5 L RDW 27.4 H Plt Count 189 MPV 9.1 Neutrophils % 91.8 H Lymphocytes % 4.6 L Monocytes % 3.0 L D Eosinophils % 0.2 D Basophils % 0.4 D Differential Comment Slide scanned Platelet Estimate Adequate Platelet Comment No clotting detected Polychromasia 2+ Hypochromic-Microcytic 2+ Poikilocytosis 2+ Anisocytosis 2+ Microcytosis 2+ Puncture Site ABG pH ABG pCO2 at Pt Temp ABG pO2 at Pt Temp ABG HCO3 ABG O2 Sat (Measured) ABG O2 Content ABG Base Excess Torito Test O2 Delivery Device Oxygen Flow Rate Sodium 149 H Potassium 3.5 Chloride 97 L Carbon Dioxide 49 H Anion Gap 3 L BUN 63 H D Creatinine 0.6 Creat Clearance w eGFR > 60 POC Glucometer 104.63397 Random Glucose 72 L D Calcium 9.0 Phosphorus 3.1 Magnesium 2.1 D Total Bilirubin 0.3 D AST 25 D ALT 18 Alkaline Phosphatase 61 D Total Protein 4.9 L Albumin 1.8 L 08/13/16 08/13/16 08/13/16 07:30 09:57 14:23 WBC RBC Hgb Hct MCV MCHC RDW Plt Count MPV Neutrophils % Lymphocytes % Monocytes % Eosinophils % Basophils % Differential Comment Platelet Estimate Platelet Comment Polychromasia Hypochromic-Microcytic Poikilocytosis Anisocytosis Microcytosis Puncture Site Right radial ABG pH 7.43 ABG pCO2 at Pt Temp 73.7 H* D ABG pO2 at Pt Temp 77.6 D ABG HCO3 47.7 H* ABG O2 Sat (Measured) 94.8 ABG O2 Content 13.1 L ABG Base Excess 20.1 H* Torito Test Positive O2 Delivery Device Nasal o2 Oxygen Flow Rate 3l Sodium Potassium Chloride Carbon Dioxide Anion Gap BUN Creatinine Creat Clearance w eGFR POC Glucometer 253.97327 260.42604 Random Glucose Calcium Phosphorus Magnesium Total Bilirubin AST ALT Alkaline Phosphatase Total Protein Albumin 08/13/16 16:49 WBC RBC Hgb Hct MCV MCHC RDW Plt Count MPV Neutrophils % Lymphocytes % Monocytes % Eosinophils % Basophils % Differential Comment Platelet Estimate Platelet Comment Polychromasia Hypochromic-Microcytic Poikilocytosis Anisocytosis Microcytosis Puncture Site ABG pH ABG pCO2 at Pt Temp ABG pO2 at Pt Temp ABG HCO3 ABG O2 Sat (Measured) ABG O2 Content ABG Base Excess [place]ito Test O2 Delivery Device Oxygen Flow Rate Sodium Potassium Chloride Carbon Dioxide Anion Gap BUN Creatinine Creat Clearance w eGFR POC Glucometer 249.37516 Random Glucose Calcium Phosphorus Magnesium Total Bilirubin AST ALT Alkaline Phosphatase Total Protein Albumin Active Medications Generic Name Dose Route Start Last Admin Trade Name Freq PRN Reason Stop Dose Admin Albuterol Sulfate 1 amp 08/10/16 20:31 Ventolin 0.083% Nebulizer Soln - NEB Q4H PRN SHORT OF BREATH/WHEEZING Albuterol/Ipratropium 1 amp 08/09/16 14:00 08/13/16 13:40 Duoneb - NEB 1 amp TIDR MICHAEL Administration Apixaban 5 mg 08/09/16 22:00 08/13/16 10:28 Eliquis - PO 5 mg BID MICHAEL Administration Atorvastatin Calcium 10 mg 08/09/16 22:00 08/12/16 22:02 Lipitor - PO 10 mg HS MICHAEL Administration Chlorhexidine Gluconate 1 applic 08/09/16 22:00 08/12/16 22:04 Hibiclens For Decolonization - TP 1 applic HS MICHAEL Administration Diltiazem HCl 30 mg 08/12/16 14:00 08/13/16 14:00 Cardizem - PO Not Given TID MICHAEL Furosemide 40 mg 08/10/16 10:00 08/13/16 10:10 Lasix Injection - IVPB 40 mg DAILY MICHAEL Administration Ceftriaxone Sodium 50 mls @ 100 mls/hr 08/10/16 14:45 08/13/16 10:02 Rocephin 1gm Ivpb (Pre-Docked) IVPB 100 mls/hr DAILY MICHAEL Administration Insulin Aspart 1 vial 08/13/16 11:00 08/13/16 17:13 Novolog Vial Sliding Scale - SQ 4 units ACHS MICHAEL Administration Protocol Insulin Detemir 8 units 08/12/16 22:00 08/12/16 22:05 Levemir Vial SQ 8 units HS MICHAEL Administration Methimazole 15 mg 08/09/16 22:00 08/13/16 14:34 Tapazole - PO 15 mg TID MICHAEL Administration Metoprolol Tartrate 5 mg 08/09/16 13:04 08/10/16 17:20 Lopressor Injection - IVPUSH 5 mg Q4H PRN Administration HYPERTENSION Mupirocin 1 applic 08/09/16 22:00 08/13/16 10:04 Bactroban Ointment (For Decolonization) - NS 08/14/16 21:59 1 applic BID MICHAEL Administration Nortriptyline HCl 30 mg 08/09/16 22:00 08/12/16 22:04 Pamelor - PO 30 mg HS MICHAEL Administration Xlvau-0-Zhai Ethyl Esters 2 gm 08/09/16 22:00 08/13/16 10:08 Lovaza - PO 2 gm BID MICHAEL Administration Prednisone 40 mg 08/13/16 10:00 08/13/16 10:06 Deltasone - PO 40 mg DAILY MICHAEL Administration Sotalol HCl 120 mg 08/11/16 10:00 08/13/16 10:04 Betapace - PO 120 mg BID MICHAEL Administration Valsartan 80 mg 08/10/16 10:00 08/13/16 10:09 Diovan - PO 80 mg DAILY MICHAEL Administration ASSESSMENT/PLAN: 86 yr old woman with multiple co-morbidities BIBEM[facility] for difficulty breathing, was found to be in rapid Afib in the ED admitted for sepsis likely from pna, rapid Afib, and hypoxia/respiratory distress. # Acute leukocytosis with Sepsis improving due to Strept Pneumo. On IV rocephin 1gm iv daily #Afib with rate controlled on sotalol 120mg po bid ,continue cardizem po 30mg tid, On abixapan 5mg po bid, lopressor iv #Acute hypercapneic Respiratory distress/hypoxia improving off Bipap now; duonebs TID prn , on prednisone now, #T2 DM uncontrolled due to being on IV steroids novolog sliding scale with BGM ACHS #HTN/CHF Lopressor 5mg IVPush q6h prn , diovan 80m g po daily, lasix 40mg IVPB daily, cardizem po 30mg tid. #CAD atorvastatin 10mg continue #Hyperthyroidism methiazole 15mg po TID #Diet: diabetic/low sodium #DVT prophylaxis - on Noac; Eliquis Visit type - Emergency Visit Emergency Visit: Yes ED Registration Date: 08/09/16 Care time: The patient presented to the Emergency Department on the above date and was hospitalized for further evaluation of their emergent condition. - New Patient This patient is new to me today: No - Critical Care Critical Care patient: No
[2016-08-13] MEDS ORDERED: PT OWN MED DRAWER 7, Y5N ONE (21:11)
[2016-08-13] MEDS: ATORVASTATIN CA 10 MG TABLET (FP) PO SCH (21:12)
[2016-08-13] MEDS: CHLORHEXIDINE GLUCONATE 4% CLEANSER FOR DECOLONIZATION TP SCH (21:13)
[2016-08-13] MEDS: INSULIN DETEMIR 100 UNITS/ML MDV SQ SCH (21:14)
[2016-08-13] MEDS: NORTRIPTYLINE HCL 10 MG CAPSULE PO SCH (21:14)
[2016-08-14] MEDS: ALBUTEROL SO4 2.5/IPRATROPIUM 0.5 INH SOL 3 ML VIAL.NEB. NEB SCH ×2 (05:44→13:50)
[2016-08-14 06:34] LABS: MCH 20.9 pg (25.7-33.7); MCHC 29.1 g/dl (32.0-36.0); MEAN CELL VOLUME 71.7 fl (80-96); MEAN PLT VOLUME 9.4 fl (7.5-11.1); PLATELET COUNT 197 K/MM3 (134-434); RDW 27.2 % (11.6-15.6)
[2016-08-14] MEDS: METHIMAZOLE 5 MG TABLET (FP) PO SCH ×3 (06:47→22:08)
[2016-08-14] MEDS: dilTIAZem HCL 30 MG TABLET (FP) PO SCH ×3 (06:47→22:08)
[2016-08-14] MEDS: INSULIN SLIDING SCALE (NOVOLOG) 1 VIAL SQ SCH ×4 (06:47→22:09)
[2016-08-14 06:52] LABS: CALCIUM 8.9 mg/dL (8.5-10.1); GLUCOSE,RANDOM 166 mg/dL (74-106); MAGNESIUM 2.2 mg/dL (1.8-2.4)
[2016-08-14 06:55] LABS: ALK PHOS 71 U/L (45-117); BILIRUBIN,TOTAL 0.3 mg/dL (0.2-1.0); CREATININE 0.6 mg/dL (0.55-1.02); PHOSPHOROUS 2.6 mg/dL (2.5-4.9); SGOT/AST 20 U/L (15-37); SGPT/ALT 30 U/L (12-78); TOT PROT 5.2 g/dl (6.4-8.2)
[2016-08-14 07:14] LABS: ANION GAP 4 (8-16); CO2 49 mmol/L (21-32)
--- NOTE | 2016-08-14 08:19 | PN ---
Progress Note, Physician Chief Complaint: ID Ceftriaxone day day 5 therapy - Current Medication List Current Medications: Active Medications Albuterol Sulfate (Ventolin 0.083% Nebulizer Soln -) 1 amp NEB Q4H PRN PRN Reason: SHORT OF BREATH/WHEEZING Albuterol/Ipratropium (Duoneb -) 1 amp NEB TIDR [facility] Last Admin: 08/14/16 05:44 Dose: 1 amp Apixaban (Eliquis -) 5 mg PO BID [facility] Last Admin: 08/13/16 21:12 Dose: 5 mg Atorvastatin Calcium (Lipitor -) 10 mg PO [facility] Last Admin: 08/13/16 21:12 Dose: 10 mg Chlorhexidine Gluconate (Hibiclens For Decolonization -) 1 applic TP [facility] Last Admin: 08/13/16 21:13 Dose: 1 applic Diltiazem HCl (Cardizem -) 30 mg PO TID [facility] Last Admin: 08/14/16 06:47 Dose: 30 mg Furosemide (Lasix Injection -) 40 mg IVPB DAILY [facility] Last Admin: 08/13/16 10:10 Dose: 40 mg Ceftriaxone Sodium (Rocephin 1gm Ivpb (Pre-Docked)) 50 mls @ 100 mls/hr IVPB DAILY [facility] Last Admin: 08/13/16 10:02 Dose: 100 mls/hr Insulin Aspart (Novolog Vial Sliding Scale -) [address] [facility] PRN Reason: Protocol Last Admin: 08/14/16 06:47 Dose: 2 units Insulin Detemir (Levemir Vial) 8 units SQ [facility] Last Admin: 08/13/16 21:14 Dose: 8 units Methimazole (Tapazole -) 15 mg PO TID [facility] Last Admin: 08/14/16 06:47 Dose: 15 mg Metoprolol Tartrate (Lopressor Injection -) 5 mg IVPUSH Q4H PRN PRN Reason: HYPERTENSION Last Admin: 08/10/16 17:20 Dose: 5 mg Mupirocin (Bactroban Ointment (For Decolonization) -) 1 applic NS BID [facility] Stop: 08/14/16 21:59 Last Admin: 08/13/16 21:13 Dose: 1 applic Nortriptyline HCl (Pamelor -) 30 mg PO [facility] Last Admin: 01/22/17 21:14 Dose: 30 mg Euxmy-2-Ohfs Ethyl Esters (Lovaza -) 2 gm PO BID [facility] Last Admin: 08/13/16 21:12 Dose: 2 gm Prednisone (Deltasone -) 40 mg PO DAILY [facility] Last Admin: 08/13/16 10:06 Dose: 40 mg Sotalol HCl (Betapace -) 120 mg PO BID [facility] Last Admin: 08/13/16 21:12 Dose: 120 mg Valsartan (Diovan -) 80 mg PO DAILY [facility] Last Admin: 08/13/16 10:09 Dose: 80 mg - Objective Vital Signs: Vital Signs Temperature 98.3 F 08/14/16 03:00 Pulse Rate 75 08/14/16 07:00 Respiratory Rate 19 08/14/16 07:00 Blood Pressure 114/73 08/14/16 07:00 O2 Sat by Pulse Oximetry (%) 99 08/14/16 05:43 Constitutional: Yes: No Distress Neck: Yes: WNL, Supple Cardiovascular: Yes: Regular Rate and Rhythm, S1, S2. No: Murmur Respiratory: Yes: Wheezes Gastrointestinal: Yes: Soft. No: Tenderness Edema: No Labs: CBC, BMP 08/14/16 05:00 08/14/16 05:00 INR, PTT INR 1.17 (0.82-1.09) H 08/09/16 09:30 Problem List - Problems (1) Atrial fibrillation with rapid ventricular response Code(s): I48.91 - UNSPECIFIED ATRIAL FIBRILLATION (2) Sepsis Code(s): A41.9 - SEPSIS, UNSPECIFIED ORGANISM Qualifiers: Qualified Code(s): A41.9 - Sepsis, unspecified organism (3) Pneumococcal pneumonia Code(s): J13 - PNEUMONIA DUE TO STREPTOCOCCUS PNEUMONIAE Assessment/Plan Microbiology 08/10/16 12:16 Urine For Antigen Detection Legionella Antigen - Final 08/10/16 12:16 Urine For Antigen Detection Streptococcus pneumoniae Antigen (M - Final 08/10/16 12:15 Nasopharyngeal Swab Influenza Types A,B Antigen (MATEUS) - Final 08/10/16 12:15 Nasopharyngeal Swab - Final 08/09/16 09:48 Urine - Urine - Catheterized Urine Culture - Final NO GROWTH OBTAINED 08/09/16 09:30 Blood - Peripheral Venous Blood Culture - Preliminary NO GROWTH OBTAINED AFTER 96 HOURS, INCUBATION TO CONTINUE FOR 1 DAYS. 08/09/16 08:30 Blood - Peripheral Venous Blood Culture - Preliminary NO GROWTH OBTAINED AFTER 96 HOURS, INCUBATION TO CONTINUE FOR 1 DAYS. Laboratory Tests 08/14/16 08/14/16 05:00 05:00 WBC 16.0 H Hgb 9.3 L Hct 32.0 L Plt Count 197 BUN 63 H Creatinine 0.6 Laboratory Tests 08/14/16 08/14/16 05:00 05:00 WBC 16.0 H Hgb 9.3 L Plt Count 197 BUN 63 H Creatinine 0.6 Assessment Pneumococcal pneumonia Atrial fibrillation COPD Plan Continue Ceftriaxone as ordered CT reviewed with santosh Givens MD
[2016-08-14] MEDS: VALSARTAN 80 MG TABLET (UD) PO SCH (10:00)
--- NOTE | 2016-08-14 10:19 | PN ---
Progress Note, Physician Chief Complaint: Remains in sinus rhythm Not in distress History of Present Illness: Patient was seen and examined. Awake and alert. Chart was reviewed Denies chest pain, SOB or palpitations. - Current Medication List Current Medications: Active Medications Albuterol Sulfate (Ventolin 0.083% Nebulizer Soln -) 1 amp NEB Q4H PRN PRN Reason: SHORT OF BREATH/WHEEZING Albuterol/Ipratropium (Duoneb -) 1 amp NEB TIDR [facility] Last Admin: 08/14/16 05:44 Dose: 1 amp Apixaban (Eliquis -) 5 mg PO BID [facility] Last Admin: 08/13/16 21:12 Dose: 5 mg Atorvastatin Calcium (Lipitor -) 10 mg PO [facility] Last Admin: 08/13/16 21:12 Dose: 10 mg Chlorhexidine Gluconate (Hibiclens For Decolonization -) 1 applic TP [facility] Last Admin: 08/13/16 21:13 Dose: 1 applic Diltiazem HCl (Cardizem -) 30 mg PO TID [facility] Last Admin: 08/14/16 06:47 Dose: 30 mg Furosemide (Lasix Injection -) 40 mg IVPB DAILY [facility] Last Admin: 08/13/16 10:10 Dose: 40 mg Ceftriaxone Sodium (Rocephin 1gm Ivpb (Pre-Docked)) 50 mls @ 100 mls/hr IVPB DAILY [facility] Last Admin: 08/13/16 10:02 Dose: 100 mls/hr Insulin Aspart (Novolog Vial Sliding Scale -) 1 vial SQ ACHS [facility] PRN Reason: Protocol Last Admin: 08/14/16 06:47 Dose: 2 units Insulin Detemir (Levemir Vial) 8 units SQ [facility] Last Admin: 08/13/16 21:14 Dose: 8 units Methimazole (Tapazole -) 15 mg PO TID [facility] Last Admin: 08/14/16 06:47 Dose: 15 mg Metoprolol Tartrate (Lopressor Injection -) 5 mg IVPUSH Q4H PRN PRN Reason: HYPERTENSION Last Admin: 08/10/16 17:20 Dose: 5 mg Mupirocin (Bactroban Ointment (For Decolonization) -) 1 applic NS BID [facility] Stop: 08/14/16 21:59 Last Admin: 08/13/16 21:13 Dose: 1 applic Nortriptyline HCl (Pamelor -) 30 mg PO HS [facility] Last Admin: 08/13/16 21:14 Dose: 30 mg Yctse-4-Bdxv Ethyl Esters (Lovaza -) 2 gm PO BID [facility] Last Admin: 08/13/16 21:12 Dose: 2 gm Prednisone (Deltasone -) 40 mg PO DAILY [facility] Last Admin: 08/13/16 10:06 Dose: 40 mg Sotalol HCl (Betapace -) 120 mg PO BID [facility] Last Admin: 08/13/16 21:12 Dose: 120 mg Valsartan (Diovan -) 80 mg PO DAILY [facility] Last Admin: 08/13/16 10:09 Dose: 80 mg - Objective Vital Signs: Vital Signs Temperature 98.3 F 08/14/16 03:00 Pulse Rate 74 08/14/16 09:50 Respiratory Rate 18 08/14/16 09:46 Blood Pressure 129/67 08/14/16 09:46 O2 Sat by Pulse Oximetry (%) 92 L 08/14/16 09:50 Neck: Yes: Supple Cardiovascular: Yes: Regular Rate and Rhythm, S1, S2 Respiratory: Yes: Diminished Gastrointestinal: Yes: Normal Bowel Sounds, Soft. No: Tenderness Edema: No Additional Findings/Remarks: Review of Systems Constitutional: denies: chills, fever Cardiovascular: denies: chest pain, (+) shortness of breath, palpitation Respiratory: denies: cough, sputum production, hemoptysis Gastrointestinal: denies: nausea, vomiting, diarrhea, constipation or abdominal pain Genitourinary: No symptoms reported Musculoskeletal: No symptoms reported Labs: CBC, BMP 08/14/16 05:00 08/14/16 05:00 Problem List - Problems (1) Acute on chronic diastolic (congestive) heart failure Code(s): I50.33 - ACUTE ON CHRONIC DIASTOLIC (CONGESTIVE) HEART FAILURE (2) Acute on chronic respiratory failure with hypoxia and hypercapnia Code(s): J96.21 - ACUTE AND CHRONIC RESPIRATORY FAILURE WITH HYPOXIA J96.22 - ACUTE AND CHRONIC RESPIRATORY FAILURE WITH HYPERCAPNIA (3) Atrial fibrillation with rapid ventricular response Code(s): I48.91 - UNSPECIFIED ATRIAL FIBRILLATION (4) CHF (congestive heart failure) Code(s): I50.9 - HEART FAILURE, UNSPECIFIED Qualifiers: Qualified Code(s): I50.33 - Acute on chronic diastolic (congestive) heart failure (5) Paroxysmal atrial fibrillation Code(s): I48.0 - PAROXYSMAL ATRIAL FIBRILLATION (6) Acute exacerbation of chronic obstructive pulmonary disease Code(s): J44.1 - CHRONIC OBSTRUCTIVE PULMONARY DISEASE W (ACUTE) EXACERBATION (7) Anemia Code(s): D64.9 - ANEMIA, UNSPECIFIED Qualifiers: Qualified Code(s): D64.9 - Anemia, unspecified (8) COPD (chronic obstructive pulmonary disease) Code(s): J44.9 - CHRONIC OBSTRUCTIVE PULMONARY DISEASE, UNSPECIFIED Qualifiers : Qualified Code(s): J43.2 - Centrilobular emphysema (9) Cardiomyopathy as manifestation of underlying disease Code(s): I43 - CARDIOMYOPATHY IN DISEASES CLASSIFIED ELSEWHERE (10) Coronary artery disease Code(s): I25.10 - ATHSCL HEART DISEASE OF [place] CORONARY ARTERY W/O ANG PCTRS Qualifiers: Qualified Code(s): I25.10 - Atherosclerotic heart disease of [place] coronary artery without angina pectoris (11) Diabetes Code(s): E11.9 - TYPE 2 DIABETES MELLITUS WITHOUT COMPLICATIONS Qualifiers: Qualified Code(s): E11.9 - Type 2 diabetes mellitus without complications (12) Diastolic dysfunction with chronic heart failure Code(s): I50.32 - CHRONIC DIASTOLIC (CONGESTIVE) HEART FAILURE (13) Gastric AV malformation Code(s): Q27.33 - ARTERIOVENOUS MALFORMATION OF DIGESTIVE SYSTEM VESSEL (14) HTN (hypertension) Code(s): I10 - ESSENTIAL (PRIMARY) HYPERTENSION Qualifiers: Qualified Code(s): I10 - Essential (primary) hypertension (15) Hyperlipidemia Code(s): E78.5 - HYPERLIPIDEMIA, UNSPECIFIED Qualifiers: Qualified Code(s): E78.2 - Mixed hyperlipidemia (16) Hyperthyroidism Code(s): E05.90 - THYROTOXICOSIS, UNSP WITHOUT THYROTOXIC CRISIS OR STORM (17) Pneumonia Code(s): J18.9 - PNEUMONIA, UNSPECIFIED ORGANISM Assessment/Plan 1. Acute on chronic hypercapeniec/hypoxemic respiratory failure related to COPD/ emphysema exacerbation and pneumonia 2. Acute on chronic LV diastolic failure 3. Non obstructive CAD, angina pectoris 4. Paroxysmal atrial fibrillation with periods of RVR currently in sinus rhythm [id number] score of 7 on NOAC 4. HTN 5. NIDDM 6. Hyperlipidemia 7. Parkinson's disease 8. Hyperthyroidism 9. Anemia 10. History of gastritis - gastric AVM post cautery PLAN: 1. Continue Sotalol 120 mg BID, Diovan 80 mg QD, Eliquis 5 mg BID, Lovaza 2 g BID and Lipitor 10 mg QHS. Continue Cardizem 30 mg TID as tolerated 2. Switch IV to PO diuresis (Lasix) with monitoring renal function and electrolytes 3. Empiric antibiotics as per ID, steroids taper, Bronchodilators, O2 and BIPAP as needed 4. Continue Tapazole 5. GI prophylaxis Further plans are to follow Ronn Grimes MD
[2016-08-14] MEDS: predniSONE 20 MG TABLET (UD) PO SCH (10:38)
[2016-08-14] MEDS: OMEGA-3 ACID ETHYL ESTERS (FATTY-ACIDS) 1 GM CAPSULE (FP) PO SCH ×2 (10:38→22:08)
[2016-08-14] MEDS: FUROSEMIDE 40 MG/4 ML INJECTABLE VIAL IVPB SCH (10:38)
[2016-08-14] MEDS: MUPIROCIN 2% TOPICAL OINTMENT FOR DECOLONIZATION NS SCH (10:39)
[2016-08-14] MEDS: SOTALOL HCL 80 MG TABLET (FP) PO SCH ×2 (10:39→22:08)
[2016-08-14] MEDS ORDERED: PT OWN MED DRAWER 7, Y5N ONE ×3 (10:40→22:15)
[2016-08-14] MEDS: APIXABAN 5 MG TABLET PO SCH ×2 (10:40→22:08)
[2016-08-14] MEDS: CEFTRIAXONE 50 ML IVPB SCH (10:42)
[2016-08-14] MEDS ORDERED: INSULIN (NOVOLOG) ASPART 100 UNITS/ML 10ML VIAL ONE (10:58)
--- NOTE | 2016-08-14 12:45 | PN ---
Teaching Attending Note Name of Resident: Hamzah Daigle ATTENDING PHYSICIAN STATEMENT I saw and evaluated the patient. I reviewed the resident's note and discussed the case with the resident. I agree with the resident's findings and plan as documented. SUBJECTIVE: Patient seen and examined in the ICU. Denies shortness of breath. Minimal nonproductive cough. Blunted affect. Intake & Output 08/11/16 08/12/16 08/13/16 08/14/16 23:59 23:59 23:59 23:59 Intake Total 480 1566 1350 250 Output Total 1150 1300 1350 400 Balance -670 266 0 -150 Weight 105 lb 105 lb 1 oz 100 lb 5 oz 103 lb 1 oz Last Vital Signs Temp Pulse Resp BP Pulse Ox 98.4 F 70 16 94/55 92 L 08/14/16 11:00 08/14/16 11:00 08/14/16 11:00 08/14/16 11:00 08/14/16 09:50 Active Medications Albuterol Sulfate (Ventolin 0.083% Nebulizer Soln -) 1 amp NEB Q4H PRN PRN Reason: SHORT OF BREATH/WHEEZING Albuterol/Ipratropium (Duoneb -) 1 amp NEB TIDR [facility] Last Admin: 08/14/16 05:44 Dose: 1 amp Apixaban (Eliquis -) 5 mg PO BID [facility] Last Admin: 08/14/16 10:40 Dose: 5 mg Atorvastatin Calcium (Lipitor -) 10 mg PO [facility] Last Admin: 08/13/16 21:12 Dose: 10 mg Chlorhexidine Gluconate (Hibiclens For Decolonization -) 1 applic TP [facility] Last Admin: 08/13/16 21:13 Dose: 1 applic Diltiazem HCl (Cardizem -) 30 mg PO TID [facility] Last Admin: 08/14/16 06:47 Dose: 30 mg Furosemide (Lasix Injection -) 40 mg IVPB DAILY [facility] Last Admin: 08/14/16 10:38 Dose: 40 mg Ceftriaxone Sodium (Rocephin 1gm Ivpb (Pre-Docked)) 50 mls @ 100 mls/hr IVPB DAILY [facility] Last Admin: 08/14/16 10:42 Dose: 100 mls/hr Insulin Aspart (Novolog Vial Sliding Scale -) 1 vial SQ ACHS [facility] PRN Reason: Protocol Last Admin: 08/14/16 11:11 Dose: 12 units Insulin Detemir (Levemir Vial) 8 units SQ HS [facility] Last Admin: 08/13/16 21:14 Dose: 8 units Methimazole (Tapazole -) 15 mg PO TID [facility] Last Admin: 08/14/16 06:47 Dose: 15 mg Metoprolol Tartrate (Lopressor Injection -) 5 mg IVPUSH Q4H PRN PRN Reason: HYPERTENSION Last Admin: 08/10/16 17:20 Dose: 5 mg Mupirocin (Bactroban Ointment (For Decolonization) -) 1 applic NS BID [facility] Stop: 08/14/16 21:59 Last Admin: 08/14/16 10:39 Dose: 1 applic Nortriptyline HCl (Pamelor -) 30 mg PO [facility] Last Admin: 08/13/16 21:14 Dose: 30 mg Eeqee-0-Kqed Ethyl Esters (Lovaza -) 2 gm PO BID [facility] Last Admin: 08/14/16 10:38 Dose: 2 gm Prednisone (Deltasone -) 40 mg PO DAILY [facility] Last Admin: 08/14/16 10:38 Dose: 40 mg Sotalol HCl (Betapace -) 120 mg PO BID [facility] Last Admin: 08/14/16 10:39 Dose: 120 mg Valsartan (Diovan -) 80 mg PO DAILY [facility] Last Admin: 08/13/16 10:09 Dose: 80 mg Gen: appears depressed, breathing nonlabored Heart: RRR Lung: distant breath sounds, no wheezes appreciated Abd: soft, nontender Ext: no edema Laboratory Results - last 24 hr 08/11/16 08/11/16 08/12/16 22:00 22:06 17:47 WBC RBC Hgb Hct MCV MCHC RDW Plt Count MPV Neutrophils % Lymphocytes % Monocytes % Differential Comment Sodium Potassium Chloride Carbon Dioxide Anion Gap BUN Creatinine Creat Clearance w eGFR POC Glucometer > 400 > 400 > 400 Random Glucose Calcium Phosphorus Magnesium Total Bilirubin AST ALT Alkaline Phosphatase Total Protein Albumin 08/13/16 08/13/16 08/13/16 14:23 16:49 21:07 WBC RBC Hgb Hct MCV MCHC RDW Plt Count MPV Neutrophils % Lymphocytes % Monocytes % Differential Comment Sodium Potassium Chloride Carbon Dioxide Anion Gap BUN Creatinine Creat Clearance w eGFR POC Glucometer 260.92968 249.92709 226.42154 Random Glucose Calcium Phosphorus Magnesium Total Bilirubin AST ALT Alkaline Phosphatase Total Protein Albumin 08/14/16 08/14/16 08/14/16 05:00 05:00 06:27 WBC 16.0 H RBC 4.46 Hgb 9.3 L Hct 32.0 L MCV 71.7 L MCHC 29.1 L RDW 27.2 H Plt Count 197 MPV 9.4 Neutrophils % 90.0 H Lymphocytes % 8.0 D Monocytes % 2.0 L Differential Comment Manual diff done Sodium 149 H Potassium 3.2 L Chloride 96 L Carbon Dioxide 49 H Anion Gap 4 L BUN 63 H Creatinine 0.6 Creat Clearance w eGFR > 60 POC Glucometer 170.26850 Random Glucose 166 H D Calcium 8.9 Phosphorus 2.6 Magnesium 2.2 Total Bilirubin 0.3 AST 20 ALT 30 D Alkaline Phosphatase 71 Total Protein 5.2 L Albumin 2.0 L 08/14/16 10:55 WBC RBC Hgb Hct MCV MCHC RDW Plt Count MPV Neutrophils % Lymphocytes % Monocytes % Differential Comment Sodium Potassium Chloride Carbon Dioxide Anion Gap BUN Creatinine Creat Clearance w eGFR POC Glucometer > 400 Random Glucose Calcium Phosphorus Magnesium Total Bilirubin AST ALT Alkaline Phosphatase Total Protein Albumin Problem List - Problems (1) Acute on chronic respiratory failure with hypoxia and hypercapnia Code(s): J96.21 - ACUTE AND CHRONIC RESPIRATORY FAILURE WITH HYPOXIA J96.22 - ACUTE AND CHRONIC RESPIRATORY FAILURE WITH HYPERCAPNIA (2) Pneumonia Code(s): J18.9 - PNEUMONIA, UNSPECIFIED ORGANISM (3) UTI (urinary tract infection) Code(s): N39.0 - URINARY TRACT INFECTION, SITE NOT SPECIFIED Qualifiers: Qualified Code(s): N39.0 - Urinary tract infection, site not specified (4) Sepsis Code(s): A41.9 - SEPSIS, UNSPECIFIED ORGANISM Qualifiers: Qualified Code(s): A41.9 - Sepsis, unspecified organism (5) Atrial fibrillation with rapid ventricular response Code(s): I48.91 - UNSPECIFIED ATRIAL FIBRILLATION (6) Acute exacerbation of chronic obstructive pulmonary disease Code(s): J44.1 - CHRONIC OBSTRUCTIVE PULMONARY DISEASE W (ACUTE) EXACERBATION (7) Acute on chronic diastolic (congestive) heart failure Code(s): I50.33 - ACUTE ON CHRONIC DIASTOLIC (CONGESTIVE) HEART FAILURE (8) Coronary artery disease Code(s): I25.10 - ATHSCL HEART DISEASE OF [place] CORONARY ARTERY W/O ANG PCTRS Qualifiers: Qualified Code(s): I25.10 - Atherosclerotic heart disease of [place] coronary artery without angina pectoris (9) Diabetes Code(s): E11.9 - TYPE 2 DIABETES MELLITUS WITHOUT COMPLICATIONS Qualifiers: Qualified Code(s): E11.9 - Type 2 diabetes mellitus without complications (10) HTN (hypertension) Code(s): I10 - ESSENTIAL (PRIMARY) HYPERTENSION Qualifiers: Qualified Code(s): I10 - Essential (primary) hypertension (11) Hyperlipidemia Code(s): E78.5 - HYPERLIPIDEMIA, UNSPECIFIED Qualifiers: Qualified Code(s): E78.2 - Mixed hyperlipidemia A/P Pneumonia UTI Sepsis Atrial Fibrillation with RVR improving Acute on Chronic LV Diastolic Heart Failure likely rate related CAD Acute COPD Exacerbation HTN DM Hypercholesterolemia Hyperthyroidism - ABX per ID - rate control on sotalol, cardizem, lopressor pushes PRN - BiPAP as needed to assist in work of breathing - O2 to keep SpO2 >90% - Prednisone taper - glucose control - inhaled bronchodilators - PO as tolerated - DVT/GI prophylaxis - D/C nigel - Telemetry monitoring Dr Vo
--- NOTE | 2016-08-14 15:07 | PN ---
Physical Exam: SUBJECTIVE: Patient seen and examined at bedside. Breathing is improved significantly. Patient eager to leave, seems depressed. Denies CP, NGUYEN, abd pain , palpitations, n/v. OBJECTIVE: Vital Signs Period Temp Pulse Resp BP Sys/Pinedo Pulse Ox Last 24 Hr 98.2 F-98.4 F 54-76 15-22 89-129/55-73 92-99 GENERAL: The patient is awake, alert, NAD HEAD: Normal with no signs of trauma. EYES: PERRL, extraocular movements intact, sclera anicteric, Cataracts noted bilat. ENT: nares patent and hearing grossly normal NECK: supple. No JVD. LUNGS: Scattered coarse rhonchi. Diminished breath sounds bilat. no accessory muscle use. HEART: Regular rate and rhythm, S1, S2 without murmur, rub or gallop. ABDOMEN: Soft, nontender, nondistended, normoactive bowel sounds, no guarding, no rebound, no hepatosplenomegaly, no masses. EXTREMITIES: 2+ pulses, warm, well-perfused, trace bilat.LE edema NEUROLOGICAL: awake and alert. gait not observed. PSYCH: anxious SKIN: Echymosis on extremities. Laboratory Results - last 24 hr 08/11/16 08/11/16 08/12/16 22:00 22:06 17:47 WBC RBC Hgb Hct MCV MCHC RDW Plt Count MPV Neutrophils % Lymphocytes % Monocytes % Differential Comment Sodium Potassium Chloride Carbon Dioxide Anion Gap BUN Creatinine Creat Clearance w eGFR POC Glucometer > 400 > 400 > 400 Random Glucose Calcium Phosphorus Magnesium Total Bilirubin AST ALT Alkaline Phosphatase Total Protein Albumin 08/13/16 08/13/16 08/14/16 16:49 21:07 05:00 WBC 16.0 H RBC 4.46 Hgb 9.3 L Hct 32.0 L MCV 71.7 L MCHC 29.1 L RDW 27.2 H Plt Count 197 MPV 9.4 Neutrophils % 90.0 H Lymphocytes % 8.0 D Monocytes % 2.0 L Differential Comment Manual diff done Sodium Potassium Chloride Carbon Dioxide Anion Gap BUN Creatinine Creat Clearance w eGFR POC Glucometer 249.03089 226.24874 Random Glucose Calcium Phosphorus Magnesium Total Bilirubin AST ALT Alkaline Phosphatase Total Protein Albumin 08/14/16 08/14/16 08/14/16 05:00 06:27 10:55 WBC RBC Hgb Hct MCV MCHC RDW Plt Count MPV Neutrophils % Lymphocytes % Monocytes % Differential Comment Sodium 149 H Potassium 3.2 L Chloride 96 L Carbon Dioxide 49 H Anion Gap 4 L BUN 63 H Creatinine 0.6 Creat Clearance w eGFR > 60 POC Glucometer 170.53297 > 400 Random Glucose 166 H D Calcium 8.9 Phosphorus 2.6 Magnesium 2.2 Total Bilirubin 0.3 AST 20 ALT 30 D Alkaline Phosphatase 71 Total Protein 5.2 L Albumin 2.0 L Active Medications Generic Name Dose Route Start Last Admin Trade Name Freq PRN Reason Stop Dose Admin Albuterol Sulfate 1 amp 08/10/16 20:31 Ventolin 0.083% Nebulizer Soln - NEB Q4H PRN SHORT OF BREATH/WHEEZING Apixaban 5 mg 08/09/16 22:00 08/14/16 10:40 Eliquis - PO 5 mg BID MICHAEL Administration Atorvastatin Calcium 10 mg 08/09/16 22:00 08/13/16 21:12 Lipitor - PO 10 mg HS MICHAEL Administration Chlorhexidine Gluconate 1 applic 08/09/16 22:00 08/13/16 21:13 Hibiclens For Decolonization - TP 1 applic HS MICHAEL Administration Diltiazem HCl 30 mg 08/12/16 14:00 08/14/16 14:28 Cardizem - PO 30 mg TID MICHAEL Administration Furosemide 40 mg 08/10/16 10:00 08/14/16 10:38 Lasix Injection - IVPB 40 mg DAILY MICHAEL Administration Ceftriaxone Sodium 50 mls @ 100 mls/hr 08/10/16 14:45 08/14/16 10:42 Rocephin 1gm Ivpb (Pre-Docked) IVPB 100 mls/hr DAILY MICHAEL Administration Insulin Aspart 1 vial 08/13/16 11:00 08/14/16 11:11 Novolog Vial Sliding Scale - SQ 12 units ACHS MICHAEL Administration Protocol Insulin Detemir 8 units 08/12/16 22:00 08/13/16 21:14 Levemir Vial SQ 8 units HS MICHAEL Administration Methimazole 15 mg 08/09/16 22:00 08/14/16 14:28 Tapazole - PO 15 mg TID MICHAEL Administration Metoprolol Tartrate 5 mg 08/09/16 13:04 08/10/16 17:20 Lopressor Injection - IVPUSH 5 mg Q4H PRN Administration HYPERTENSION Mupirocin 1 applic 08/09/16 22:00 08/14/16 10:39 Bactroban Ointment (For Decolonization) - NS 08/14/16 21:59 1 applic BID MICHAEL Administration Nortriptyline HCl 30 mg 08/09/16 22:00 08/13/16 21:14 Pamelor - PO 30 mg HS MICHAEL Administration Aeatq-2-Egje Ethyl Esters 2 gm 08/09/16 22:00 08/14/16 10:38 Lovaza - PO 2 gm BID MICHAEL Administration Prednisone 40 mg 08/13/16 10:00 08/14/16 10:38 Deltasone - PO 40 mg DAILY MICHAEL Administration Sotalol HCl 120 mg 08/11/16 10:00 08/14/16 10:39 Betapace - PO 120 mg BID MICHAEL Administration Valsartan 80 mg 08/10/16 10:00 08/13/16 10:09 Diovan - PO 80 mg DAILY MICHAEL Administration ASSESSMENT/PLAN: 86 year old female with a past medical history of NIDDM, COPD ( on home O2), HTN , HLD, GERD, nonobstructive CAD, early Parkinson's disease, diastolic dysfunction with h/o failure, paroxysmal atrial fibrillation, anemia, gastric AVM post cautery admitted to ICU for sepsis 2/2 PNA/UTI accompanied by AFIB with RVR requiring cardizem ggt and hypoxia requiring BiPaP. Neuro: Depressed mood today. will continue to monitor for any MS changes or focal neuro def. Pulmonary: Currently on 4L NC Maintain O2 sat >90% Albuterol/Ipratropium (Duoneb -) 1 amp NEB TID Methylprednisolone Sodium Succinate (Solu-Medrol -) 40 mg IVPB Q8H-IV CV: CAD, CHF, Afib RVR Seen by Dr. Tucker cardiology Rate has been controlled. Cardizem ggt PRN Rhythm control-Sotalol 80 mg PO BID AC-Apixaban 5 mg PO BID CHF :Atorvastatin 10 mg PO HS Furosemide (Lasix Injection -) 40 mg IVPB DAILY Metoprolol Tartrate 5 mg IVPUSH Q4H PRN Valsartan (Diovan -) 80 mg PO DAILY Continue cardiac monitoring. ID:HAP and UTI Continue Ceftriaxone 1gm Daily Repeat CBC and CXR in AM ENDO: ADA diet ISS ACHS BGM ACHS GI/DVT prophylaxis: Eliquis 5mg PO BID Protonix 40mg HS DISPO: Will continue to manage in ICU for Sepsis 2/2 UTI/PNA Visit type - Emergency Visit Emergency Visit: Yes ED Registration Date: 08/09/16 Care time: The patient presented to the Emergency Department on the above date and was hospitalized for further evaluation of their emergent condition. - New Patient This patient is new to me today: No - Critical Care Critical Care patient: Yes Total Critical Care Time (in minutes): 30 Critical Care Statement: The care of this patient involved high complexity decision making to prevent further life threatening deterioration of the patient 's condition and/or to evalute & treat vital organ system(s) failure or risk of failure.
--- NOTE | 2016-08-14 15:46 | PN ---
Physical Exam: SUBJECTIVE: Patient seen and examined No complaints, says she feels more comfortable than when she came in. Denies palpitations, chest pain, difficulty breathing, headache. OBJECTIVE: Vital Signs Period Temp Pulse Resp BP Sys/Pinedo Pulse Ox Last 24 Hr 98.2 F-98.4 F 54-76 15-22 89-129/55-73 92-99 GENERAL: The patient is awake, and fully oriented, in no acute distress. HEAD: Normal with no signs of trauma. EYES: extraocular movements intact. conjuctive clear LUNGS: Breath sounds with rales and rhonchi R>L. RR 17. on nasal cannula HEART: sinus, S1, S2, rate controlled ABDOMEN: Soft, nontender, nondistended, EXTREMITIES: 1+ pulses, warm, trace pedal edema NEUROLOGICAL: gait not observed. PSYCH: appears sad, normal affect. cooperative. Laboratory Results - last 24 hr 08/11/16 08/11/16 08/12/16 22:00 22:06 17:47 WBC RBC Hgb Hct MCV MCHC RDW Plt Count MPV Neutrophils % Lymphocytes % Monocytes % Differential Comment Sodium Potassium Chloride Carbon Dioxide Anion Gap BUN Creatinine Creat Clearance w eGFR POC Glucometer > 400 > 400 > 400 Random Glucose Calcium Phosphorus Magnesium Total Bilirubin AST ALT Alkaline Phosphatase Total Protein Albumin 08/13/16 08/13/16 08/14/16 16:49 21:07 05:00 WBC 16.0 H RBC 4.46 Hgb 9.3 L Hct 32.0 L MCV 71.7 L MCHC 29.1 L RDW 27.2 H Plt Count 197 MPV 9.4 Neutrophils % 90.0 H Lymphocytes % 8.0 D Monocytes % 2.0 L Differential Comment Manual diff done Sodium Potassium Chloride Carbon Dioxide Anion Gap BUN Creatinine Creat Clearance w eGFR POC Glucometer 249.27019 226.78174 Random Glucose Calcium Phosphorus Magnesium Total Bilirubin AST ALT Alkaline Phosphatase Total Protein Albumin 08/14/16 08/14/16 08/14/16 05:00 06:27 10:55 WBC RBC Hgb Hct MCV MCHC RDW Plt Count MPV Neutrophils % Lymphocytes % Monocytes % Differential Comment Sodium 149 H Potassium 3.2 L Chloride 96 L Carbon Dioxide 49 H Anion Gap 4 L BUN 63 H Creatinine 0.6 Creat Clearance w eGFR > 60 POC Glucometer 170.17622 > 400 Random Glucose 166 H D Calcium 8.9 Phosphorus 2.6 Magnesium 2.2 Total Bilirubin 0.3 AST 20 ALT 30 D Alkaline Phosphatase 71 Total Protein 5.2 L Albumin 2.0 L Active Medications Generic Name Dose Route Start Last Admin Trade Name Freq PRN Reason Stop Dose Admin Albuterol Sulfate 1 amp 08/10/16 20:31 Ventolin 0.083% Nebulizer Soln - NEB Q4H PRN SHORT OF BREATH/WHEEZING Apixaban 5 mg 08/09/16 22:00 08/14/16 10:40 Eliquis - PO 5 mg BID MICHAEL Administration Atorvastatin Calcium 10 mg 08/09/16 22:00 08/13/16 21:12 Lipitor - PO 10 mg HS MICHAEL Administration Chlorhexidine Gluconate 1 applic 08/09/16 22:00 08/13/16 21:13 Hibiclens For Decolonization - TP 1 applic HS MICHAEL Administration Diltiazem HCl 30 mg 08/12/16 14:00 08/14/16 14:28 Cardizem - PO 30 mg TID MICHAEL Administration Furosemide 40 mg 08/10/16 10:00 08/14/16 10:38 Lasix Injection - IVPB 40 mg DAILY MICHAEL Administration Ceftriaxone Sodium 50 mls @ 100 mls/hr 08/10/16 14:45 08/14/16 10:42 Rocephin 1gm Ivpb (Pre-Docked) IVPB 100 mls/hr DAILY MICHAEL Administration Insulin Aspart 1 vial 08/13/16 11:00 08/14/16 11:11 Novolog Vial Sliding Scale - SQ 12 units ACHS MICHAEL Administration Protocol Insulin Detemir 8 units 08/12/16 22:00 08/13/16 21:14 Levemir Vial SQ 8 units HS MICHAEL Administration Methimazole 15 mg 08/09/16 22:00 08/14/16 14:28 Tapazole - PO 15 mg TID MICHAEL Administration Metoprolol Tartrate 5 mg 08/09/16 13:04 08/10/16 17:20 Lopressor Injection - IVPUSH 5 mg Q4H PRN Administration HYPERTENSION Mupirocin 1 applic 08/09/16 22:00 08/14/16 10:39 Bactroban Ointment (For Decolonization) - NS 08/14/16 21:59 1 applic BID MICHAEL Administration Nortriptyline HCl 30 mg 08/09/16 22:00 08/13/16 21:14 Pamelor - PO 30 mg HS MICHAEL Administration Nghaf-1-Waof Ethyl Esters 2 gm 08/09/16 22:00 08/14/16 10:38 Lovaza - PO 2 gm BID MICHAEL Administration Prednisone 40 mg 08/13/16 10:00 08/14/16 10:38 Deltasone - PO 40 mg DAILY MICHAEL Administration Sotalol HCl 120 mg 08/11/16 10:00 08/14/16 10:39 Betapace - PO 120 mg BID MICHAEL Administration Valsartan 80 mg 08/10/16 10:00 08/13/16 10:09 Diovan - PO 80 mg DAILY MICHAEL Administration ASSESSMENT/PLAN: 86 yr old woman with multiple co-morbidities BIBEMS from [facility] for difficulty breathing, was found to be in rapid Afib in the ED admitted for sepsis likely from pna, rapid Afib, and hypoxia/respiratory distress. - discussed with daughter(healthcare proxy) she would like to take patient home with home PT, [facility] and [employer] [facility] rather than rehab. will discuss with [employer] when transferred to floor. #Sepsis secondary to strep pneumo(pos urine) - WBC down trending. - rocephin 1gm iv daily --start 08/10 #Afib, persistent - improving, rate controlled. likely triggered by infection - sotalol 120mg po bid - cardizem 30mg po TID - abixapan 5mg po bid - eliquis 5mg po bid #Respiratory distress/hypoxia - improved, on nasal cannula 4lpm - duonebs q4 prn - prednisone 40mg po daily #DM - levemir 8u subq HS - novolog sliding scale - BGM ACHS #HTN/CHF - metoprolol tart 5mg IVPush q4h prn - diovan 80m g po daily - lasix 40mg IVPB qdaily #CAD - atorvastatin 10mg HS po #Hyperthyroidism -methiazole 15mg po TID #deconditioning - PT eval #Diet: diabetic/low sodium #DVT prophylaxis - on anticoagulation Visit type - Emergency Visit Emergency Visit: No - New Patient This patient is new to me today: No - Critical Care Critical Care patient: Yes Total Critical Care Time (in minutes): 33 Critical Care Statement: The care of this patient involved high complexity decision making to prevent further life threatening deterioration of the patient 's condition and/or to evalute & treat vital organ system(s) failure or risk of failure. - Discharge Referral Referred to [facility] No
--- NOTE | 2016-08-14 16:22 | EKG ---
Test Reason : Blood Pressure : / mmHG Vent. Rate : 089 BPM Atrial Rate : 089 BPM P-R Int : 110 ms QRS Dur : 076 ms QT Int : 364 ms P-R-T Axes : -05 -13 -47 degrees QTc Int : 442 ms SINUS RHYTHM WITH SHORT [place] WITH PREMATURE ATRIAL COMPLEXES ABNORMAL ECG WHEN COMPARED WITH ECG OF 09-AUG-2016 11:48, T WAVE VARIATION Confirmed by NABOR PATEL MD ([id number]) on 08/14/2016 4:21:39 PM Referred By: Confirmed By:NABOR PATEL MD
--- NOTE | 2016-08-14 17:01 | PN ---
Teaching Attending Note Name of Resident: Deon Starks ATTENDING PHYSICIAN STATEMENT I saw and evaluated the patient. I reviewed the resident's note and discussed the case with the resident. I agree with the resident's findings and plan as documented. SUBJECTIVE: Comfortable with no acute distress.no shortness of breath. OBJECTIVE: Vital Signs Temperature 98.4 F 08/14/16 11:00 Pulse Rate 70 08/14/16 12:00 Respiratory Rate 16 08/14/16 12:00 Blood Pressure 111/57 08/14/16 12:00 O2 Sat by Pulse Oximetry (%) 92 L 08/14/16 09:50 GENERAL: The patient is awake, alert, and fully oriented, in no acute distress. HEAD: Normal with no signs of trauma. EYES: PERRL, extraocular movements intact, sclera anicteric, conjunctiva clear. ENT: Ears normal, oropharynx clear without exudates, moist mucous membranes. NECK: Trachea midline, full range of motion, supple. LUNGS: Breath sounds equal, decreased BS , no wheezes, no crackles, no accessory muscle use. HEART: Regular rate and rhythm, S1, S2 positive, MANISHA 2/6 ,no rub or gallop. ABDOMEN: Soft, nontender, nondistended, normoactive bowel sounds, no guarding, no rebound, no hepatosplenomegaly, no masses. EXTREMITIES: 2+ pulses, warm, well-perfused, no edema. NEUROLOGICAL: Cranial nerves II through XII grossly intact. Normal speech, gait not observed. PSYCH: Normal mood, normal affect. SKIN: Warm, dry, normal turgor, no rashes or lesions noted CBCD WBC 16.0 K/mm3 (4.0-10.0) H 08/14/16 05:00 RBC 4.46 M/mm3 (3.60-5.2) 08/14/16 05:00 Hgb 9.3 GM/dL (10.7-15.3) L 08/14/16 05:00 Hct 32.0 % (32.4-45.2) L 08/14/16 05:00 MCV 71.7 fl (80-96) L 08/14/16 05:00 MCHC 29.1 g/dl (32.0-36.0) L 08/14/16 05:00 RDW 27.2 % (11.6-15.6) H 08/14/16 05:00 Plt Count 197 K/MM3 (134-434) 08/14/16 05:00 MPV 9.4 fl (7.5-11.1) 08/14/16 05:00 CMP Sodium 149 mmol/L (136-145) H 08/14/16 05:00 Potassium 3.2 mmol/L (3.5-5.1) L 08/14/16 05:00 Chloride 96 mmol/L (98-107) L 08/14/16 05:00 Carbon Dioxide 49 mmol/L (21-32) H 08/14/16 05:00 Anion Gap 4 (8-16) L 08/14/16 05:00 BUN 63 mg/dL (7-18) H 08/14/16 05:00 Creatinine 0.6 mg/dL (0.55-1.02) 08/14/16 05:00 Creat Clearance w eGFR > 60 (>60) 08/14/16 05:00 Random Glucose 166 mg/dL (74-106) H D 08/14/16 05:00 Calcium 8.9 mg/dL (8.5-10.1) 08/14/16 05:00 Total Bilirubin 0.3 mg/dL (0.2-1.0) 08/14/16 05:00 AST 20 U/L (15-37) 08/14/16 05:00 ALT 30 U/L (12-78) D 08/14/16 05:00 Alkaline Phosphatase 71 U/L (45-117) 08/14/16 05:00 Total Protein 5.2 g/dl (6.4-8.2) L 08/14/16 05:00 Albumin 2.0 g/dl (3.4-5.0) L 08/14/16 05:00 CARDIAC ENZYMES Creatine Kinase 19 IU/L (26-192) L 08/11/16 05:35 Troponin I 0.02 ng/ml (0.00-0.05) 08/11/16 05:35 Current Medications Generic Name Dose Route Start Last Admin Trade Name Freq PRN Reason Stop Dose Admin Albuterol Sulfate 1 amp 08/10/16 20:31 Ventolin 0.083% Nebulizer Soln - NEB Q4H PRN SHORT OF BREATH/WHEEZING Apixaban 5 mg 08/09/16 22:00 08/14/16 10:40 Eliquis - PO 5 mg BID MICHAEL Administration Atorvastatin Calcium 10 mg 08/09/16 22:00 08/13/16 21:12 Lipitor - PO 10 mg HS MICHAEL Administration Chlorhexidine Gluconate 1 applic 08/09/16 22:00 08/13/16 21:13 Hibiclens For Decolonization - TP 1 applic HS MICHAEL Administration Diltiazem HCl 30 mg 08/12/16 14:00 08/14/16 14:28 Cardizem - PO 30 mg TID MICHAEL Administration Furosemide 40 mg 08/10/16 10:00 08/14/16 10:38 Lasix Injection - IVPB 40 mg DAILY MICHAEL Administration Ceftriaxone Sodium 50 mls @ 100 mls/hr 08/10/16 14:45 08/14/16 10:42 Rocephin 1gm Ivpb (Pre-Docked) IVPB 100 mls/hr DAILY MICHAEL Administration Insulin Aspart 1 vial 08/13/16 11:00 08/14/16 11:11 Novolog Vial Sliding Scale - SQ 12 units ACHS MICHAEL Administration Protocol Insulin Detemir 8 units 08/12/16 22:00 08/13/16 21:14 Levemir Vial SQ 8 units HS MICHAEL Administration Methimazole 15 mg 08/09/16 22:00 08/14/16 14:28 Tapazole - PO 15 mg TID MICHAEL Administration Metoprolol Tartrate 5 mg 08/09/16 13:04 08/10/16 17:20 Lopressor Injection - IVPUSH 5 mg Q4H PRN Administration HYPERTENSION Mupirocin 1 applic 08/09/16 22:00 08/14/16 10:39 Bactroban Ointment (For Decolonization) - NS 08/14/16 21:59 1 applic BID MICHAEL Administration Nortriptyline HCl 30 mg 08/09/16 22:00 08/13/16 21:14 Pamelor - PO 30 mg HS MICHAEL Administration Pbrwe-1-Dodr Ethyl Esters 2 gm 08/09/16 22:00 08/14/16 10:38 Lovaza - PO 2 gm BID MICHAEL Administration Potassium Chloride 40 meq 08/14/16 22:00 K-Dur - PO 08/15/16 10:01 BID MICHAEL Prednisone 40 mg 08/13/16 10:00 08/14/16 10:38 Deltasone - PO 40 mg DAILY MICHAEL Administration Sotalol HCl 120 mg 08/11/16 10:00 08/14/16 10:39 Betapace - PO 120 mg BID MICHAEL Administration Valsartan 80 mg 08/10/16 10:00 08/13/16 10:09 Diovan - PO 80 mg DAILY MICHAEL Administration Medication Instructions Recorded Tiotropium [place] [Spiriva] 1 inh PO BID 07/19/14 Roflumilast [Daliresp -] 500 mcg PO DAILY #30 tablet 07/21/14 Metformin HCl 500 mg PO DAILY 05/09/15 Pregabalin [Lyrica -] 75 mg PO BID 05/09/15 Albuterol 0.083% Nebulizer Lisa 1 neb NEB BID 12/01/15 [Ventolin 0.083% Nebulizer Soln -] Aspirin [ASA -] 81 mg PO DAILY 04/18/16 Calcium Carbonate [Calcium] 500 mg PO BID 04/18/16 Escitalopram Oxalate [Lexapro -] 10 mg PO BID 04/18/16 Pantoprazole Sodium [Protonix] 40 mg PO DAILY 04/18/16 Pramipexole Di-HCl [Mirapex] 0.5 mg PO HS 04/18/16 Sucralfate [Carafate] 1 gm PO BID 04/18/16 [place]-3 Acid Ethyl Esters [Lovaza 2 gm PO BID cap 04/21/16 -] Benzonatate [Tessalon Perle -] 200 mg PO BID 05/04/16 Levalbuterol Tartrate [Xopenex Hfa] 15 gm IH DAILY PRN 05/04/16 Nortriptyline HCl [Pamelor -] 30 mg PO HS 05/04/16 Salmeterol/Fluticasone [Advair 1 inh PO BID 07/13/16 100Mcg/50Mcg -] Atorvastatin Ca [Lipitor] 10 mg PO HS #30 tablet 07/16/16 Ferrous Sulfate [Feosol] 325 mg PO BIDWM #120 ud 07/16/16 Apixaban [Eliquis -] 2.5 mg PO BID #60 tablet 07/26/16 Methimazole [Tapazole -] 15 mg PO TID #90 tablet 07/26/16 Sotalol HCl [Betapace -] 80 mg PO BID #60 tablet 07/26/16 Insulin Glargine,Hum.rec.anlog 5 units SQ HS #1 vial 08/03/16 [Lantus (nf)] Insulin Sliding Scale [Novolog 1 vial SQ ACHS #30 units 08/03/16 Vial Sliding Scale -] Prednisone See Taper PO BID #60 tablet 08/03/16 Methimazole [Tapazole] 10 mg PO TID 08/09/16 Nortriptyline HCl [Pamelor -] 10 mg PO HS 08/09/16 Pramipexole Di-HCl [Mirapex] 0.5 mg PO HS 08/09/16 Pregabalin [Lyrica] 75 mg PO DAILY 08/09/16 ASSESSMENT AND PLAN: 86 yr old woman with multiple co-morbidities BIBEMS from [facility] for difficulty breathing, was found to be in rapid Afib in the ED admitted for sepsis likely from pna, rapid Afib, and hypoxia/respiratory distress. # Acute Sepsis due to Strept Pneumo. on IV rocephin 1gm continue, ID on the case. #Afib with rate controlled now on sotalol 80mg po bid ,cardizem, BB, On abixapan 5mg po bid #s/p acute Respiratory distress/hypoxia - improved with Bipap; duonebs TID prn , on prednisone po. #DM novolog sliding scale with BGM ACHS #HTN/CHF Lopressor 5mg IVPush q6h prn , diovan 80m g po daily, lasix 40mg IVPB daily #CAD atorvastatin 10mg continue #Hyperthyroidism methiazole 15mg po TID #Diet: diabetic/low sodium #DVT prophylaxis - on Noac; Eliquis Patient is requiring Head of bed elevation to at least 30 degrees.
[2016-08-14] MEDS ORDERED: POTASSIUM CHLORIDE TABS 20 MEQ TABLET.ER (FP) PO SCH (17:15)
[2016-08-14] MEDS: POTASSIUM CHLORIDE TABS 20 MEQ TABLET.ER (FP) PO SCH (22:07)
[2016-08-14] MEDS: ATORVASTATIN CA 10 MG TABLET (FP) PO SCH (22:07)
[2016-08-14] MEDS: INSULIN DETEMIR 100 UNITS/ML MDV SQ SCH (22:09)
[2016-08-14] MEDS: CHLORHEXIDINE GLUCONATE 4% CLEANSER FOR DECOLONIZATION TP SCH (22:09)
[2016-08-14] MEDS: NORTRIPTYLINE HCL 10 MG CAPSULE PO SCH (22:36)
[2016-08-15] MEDS: ALBUTEROL SO4 0.083% IH SOL 2.5 MG/3 ML VIAL.NEB. NEB PRN ×3 (06:20→19:24)
[2016-08-15] MEDS: METHIMAZOLE 5 MG TABLET (FP) PO SCH ×3 (06:41→21:57)
[2016-08-15] MEDS: dilTIAZem HCL 30 MG TABLET (FP) PO SCH (06:41)
[2016-08-15] MEDS: INSULIN SLIDING SCALE (NOVOLOG) 1 VIAL SQ SCH ×4 (06:42→21:56)
[2016-08-15] MEDS: SOTALOL HCL 80 MG TABLET (FP) PO SCH ×2 (09:38→21:53)
[2016-08-15] MEDS: APIXABAN 5 MG TABLET PO SCH ×2 (09:38→21:55)
[2016-08-15] MEDS: OMEGA-3 ACID ETHYL ESTERS (FATTY-ACIDS) 1 GM CAPSULE (FP) PO SCH ×2 (09:38→21:56)
[2016-08-15] MEDS: predniSONE 20 MG TABLET (UD) PO SCH (09:38)
--- NOTE | 2016-08-15 09:38 | PN ---
Progress Note (short form) - Note Progress Note: Chief Complaint: Events noted, notes reviewed, complains of persistent dyspnea but improving, denies any chest pain, sinus rhythm is noted History of Present Illness: Seen and examined on telemetry. Events noted, notes reviewed, complains of persistent dyspnea but improving, denies any chest pain, sinus rhythm is noted Echocardiography revealed normal LV systolic dysfunction, mild MR, mild to moderate TR, and moderate degree of pulmonary HTN RVSP of 49 mmHg - Current Medication List Current Medications Albuterol Sulfate (Ventolin 0.083% Nebulizer Soln -) 1 amp NEB Q4H PRN PRN Reason: SHORT OF BREATH/WHEEZING Last Admin: 08/15/16 06:20 Dose: 1 amp Apixaban (Eliquis -) 5 mg PO BID [facility] Last Admin: 08/15/16 09:38 Dose: 5 mg Atorvastatin Calcium (Lipitor -) 10 mg PO [facility] Last Admin: 08/14/16 22:07 Dose: 10 mg Chlorhexidine Gluconate (Hibiclens For Decolonization -) 1 applic TP [facility] Last Admin: 08/14/16 22:09 Dose: Not Given Diltiazem HCl (Cardizem -) 30 mg PO TID [facility] Last Admin: 08/15/16 06:41 Dose: 30 mg Furosemide (Lasix Injection -) 40 mg IVPB DAILY [facility] Last Admin: 08/15/16 09:39 Dose: 40 mg Ceftriaxone Sodium (Rocephin 1gm Ivpb (Pre-Docked)) 50 mls @ 100 mls/hr IVPB DAILY [facility] Last Admin: 08/15/16 09:39 Dose: 100 mls/hr Insulin Aspart (Novolog Vial Sliding Scale -) 1 vial SQ [facility] PRN Reason: Protocol Last Admin: 08/15/16 06:42 Dose: 2 units Insulin Detemir (Levemir Vial) 8 units SQ [facility] Last Admin: 08/14/16 22:09 Dose: 8 units Methimazole (Tapazole -) 15 mg PO TID [facility] Last Admin: 08/15/16 06:41 Dose: 15 mg Metoprolol Tartrate (Lopressor Injection -) 5 mg IVPUSH Q4H PRN PRN Reason: HYPERTENSION Last Admin: 08/10/16 17:20 Dose: 5 mg Nortriptyline HCl (Pamelor -) 30 mg PO [facility] Last Admin: 08/14/16 22:36 Dose: 30 mg Susua-1-Tklr Ethyl Esters (Lovaza -) 2 gm PO BID [facility] Last Admin: 08/15/16 09:38 Dose: 2 gm Potassium Chloride (K-Dur -) 40 meq PO BID [facility] Stop: 08/15/16 10:01 Last Admin: 08/15/16 09:39 Dose: 40 meq Prednisone (Deltasone -) 40 mg PO DAILY [facility] Last Admin: 08/15/16 09:38 Dose: 40 mg Sotalol HCl (Betapace -) 120 mg PO BID [facility] Last Admin: 08/15/16 09:38 Dose: 120 mg Valsartan (Diovan -) 80 mg PO DAILY [facility] Last Admin: 08/15/16 09:39 Dose: 80 mg Review of Systems Constitutional: denies: chills, fever Cardiovascular: As noted above Respiratory: reports: cough and sputum production Gastrointestinal: denies: nausea, vomiting, diarrhea, constipation or abdominal pain Genitourinary: No symptoms reported Musculoskeletal: No symptoms reported - Objective Vital Signs: Last Vital Signs Temp Pulse Resp BP Pulse Ox 98.6 F 74 20 147/73 92 L 08/15/16 05:54 08/15/16 05:54 08/15/16 05:54 08/15/16 05:54 08/14/16 09:50 Neck: Supple Negative JVD No Bruit Cardiovascular: S1 S2 Regular Rate and Rhythm Respiratory: Scattered Rhonchi Bilaterally with Diminished Breath Sounds at the Bases Gastrointestinal: Soft Benign Normal Bowel Sounds Edema: No Labs: CBC, BMP 08/14/16 05:00 08/14/16 05:00 Assessment/Plan ASSESSMENT: 1. Hypercapeniec respiratory failure related to COPD/emphysema exacerbation, resolving 2. Paroxysmal atrial fibrillation currently in sinus rhythm [id number] score of 7 on NOAC's 3. Diastolic LV dysfunction with chronic class I-II NYHA classification LV failure, compensated 4. CAD non obstructive CAD angina pectoris 4. HTN 5. NIDDM 6. Hyperlipidemia 7. Parkinson's disease 8. Hyperthyroidism 9. Anemia 10. History of gastritis - gastric AVM post cautery PLAN: 1. Continue Sotalol at the current dosage with close monitoring of QTc interval 2. Continue Cardizem and switch to CD form 3. Continue Diovan 4. Continue Lasix and switch to PO 5. Continue Continue A/C with Eliquis with caution considering the above noted history of anemia and GI bleed 6. Continue Lovaza and Lipitor 7. Bronchodilators and steroids as per primary team 8. Continue Tapazole Bernie Sharif MD
[2016-08-15] MEDS: POTASSIUM CHLORIDE TABS 20 MEQ TABLET.ER (FP) PO SCH (09:39)
[2016-08-15] MEDS: CEFTRIAXONE 50 ML IVPB SCH (09:39)
[2016-08-15] MEDS: FUROSEMIDE 40 MG/4 ML INJECTABLE VIAL IVPB SCH (09:39)
[2016-08-15] MEDS: VALSARTAN 80 MG TABLET (UD) PO SCH (09:39)
--- NOTE | 2016-08-15 09:51 | PN ---
Teaching Attending Note Name of Resident: Deon Starks ATTENDING PHYSICIAN STATEMENT I saw and evaluated the patient. I reviewed the resident's note and discussed the case with the resident. I agree with the resident's findings and plan as documented. SUBJECTIVE: Patient is feeling better, with no acute distress, but patient was just staring at you today, and oxygen drops without NC. was found to be in low 80's. OBJECTIVE: Vital Signs Temperature 98.6 F 08/15/16 05:54 Pulse Rate 74 08/15/16 05:54 Respiratory Rate 20 08/15/16 05:54 Blood Pressure 147/73 08/15/16 05:54 O2 Sat by Pulse Oximetry (%) 92 L 08/14/16 09:50 GENERAL: The patient is awake, alert, and fully oriented, in no acute distress. HEAD: Normal with no signs of trauma. EYES: PERRL, extraocular movements intact, sclera anicteric, conjunctiva clear. ENT: Ears normal, nares patent, oropharynx clear without exudates, moist mucous membranes. NECK: Trachea midline, full range of motion, supple. LUNGS: Breath sounds equal, decresed BS bilaterally, no wheezes, no crackles, no accessory muscle use. HEART: Regular rate and rhythm, S1, S2 positive, MANISHA 2/6 no rub or gallop. ABDOMEN: Soft, nontender, nondistended, normoactive bowel sounds, no guarding, no rebound, no hepatosplenomegaly, no masses. EXTREMITIES: 2+ pulses, warm, well-perfused, no edema. NEUROLOGICAL: Cranial nerves II through XII grossly intact. Normal speech, gait not observed. PSYCH: Normal mood, normal affect. SKIN: Warm, dry, normal turgor, no rashes or lesions noted CBCD WBC 16.0 K/mm3 (4.0-10.0) H 08/14/16 05:00 RBC 4.46 M/mm3 (3.60-5.2) 08/14/16 05:00 Hgb 9.3 GM/dL (10.7-15.3) L 08/14/16 05:00 Hct 32.0 % (32.4-45.2) L 08/14/16 05:00 MCV 71.7 fl (80-96) L 08/14/16 05:00 MCHC 29.1 g/dl (32.0-36.0) L 08/14/16 05:00 RDW 27.2 % (11.6-15.6) H 08/14/16 05:00 Plt Count 197 K/MM3 (134-434) 08/14/16 05:00 MPV 9.4 fl (7.5-11.1) 08/14/16 05:00 CMP Sodium 149 mmol/L (136-145) H 08/14/16 05:00 Potassium 3.2 mmol/L (3.5-5.1) L 08/14/16 05:00 Chloride 96 mmol/L (98-107) L 08/14/16 05:00 Carbon Dioxide 49 mmol/L (21-32) H 08/14/16 05:00 Anion Gap 4 (8-16) L 08/14/16 05:00 BUN 63 mg/dL (7-18) H 08/14/16 05:00 Creatinine 0.6 mg/dL (0.55-1.02) 08/14/16 05:00 Creat Clearance w eGFR > 60 (>60) 08/14/16 05:00 Random Glucose 166 mg/dL (74-106) H D 08/14/16 05:00 Calcium 8.9 mg/dL (8.5-10.1) 08/14/16 05:00 Total Bilirubin 0.3 mg/dL (0.2-1.0) 08/14/16 05:00 AST 20 U/L (15-37) 08/14/16 05:00 ALT 30 U/L (12-78) D 08/14/16 05:00 Alkaline Phosphatase 71 U/L (45-117) 08/14/16 05:00 Total Protein 5.2 g/dl (6.4-8.2) L 08/14/16 05:00 Albumin 2.0 g/dl (3.4-5.0) L 08/14/16 05:00 CARDIAC ENZYMES Creatine Kinase 19 IU/L (26-192) L 08/11/16 05:35 Troponin I 0.02 ng/ml (0.00-0.05) 08/11/16 05:35 Current Medications Generic Name Dose Route Start Last Admin Trade Name Freq PRN Reason Stop Dose Admin Albuterol Sulfate 1 amp 08/10/16 20:31 08/15/16 06:20 Ventolin 0.083% Nebulizer Soln - NEB 1 amp Q4H PRN Administration SHORT OF BREATH/WHEEZING Apixaban 5 mg 08/09/16 22:00 08/15/16 09:38 Eliquis - PO 5 mg BID MICHAEL Administration Atorvastatin Calcium 10 mg 08/09/16 22:00 08/14/16 22:07 Lipitor - PO 10 mg HS MICHAEL Administration Chlorhexidine Gluconate 1 applic 08/09/16 22:00 08/14/16 22:09 Hibiclens For Decolonization - TP Not Given HS MICHAEL Diltiazem HCl 120 mg 08/15/16 10:00 Cardizem Cd - PO DAILY MICHAEL Furosemide 40 mg 08/16/16 10:00 Lasix - PO DAILY REPLACED BY [facility] Ceftriaxone Sodium 50 mls @ 100 mls/hr 08/10/16 14:45 08/15/16 09:39 Rocephin 1gm Ivpb (Pre-Docked) IVPB 100 mls/hr DAILY MICHAEL Administration Insulin Aspart 1 vial 08/13/16 11:00 08/15/16 06:42 Novolog Vial Sliding Scale - SQ 2 units ACHS MICHAEL Administration Protocol Insulin Detemir 8 units 08/12/16 22:00 08/14/16 22:09 Levemir Vial SQ 8 units HS MICHAEL Administration Methimazole 15 mg 08/09/16 22:00 08/15/16 06:41 Tapazole - PO 15 mg TID MICHAEL Administration Metoprolol Tartrate 5 mg 08/09/16 13:04 08/10/16 17:20 Lopressor Injection - IVPUSH 5 mg Q4H PRN Administration HYPERTENSION Nortriptyline HCl 30 mg 08/09/16 22:00 08/14/16 22:36 Pamelor - PO 30 mg HS MICHAEL Administration Xhlmo-6-Mcio Ethyl Esters 2 gm 08/09/16 22:00 08/15/16 09:38 Lovaza - PO 2 gm BID MICHAEL Administration Potassium Chloride 40 meq 08/14/16 22:00 08/15/16 09:39 K-Dur - PO 08/15/16 10:01 40 meq BID MICHAEL Administration Prednisone 40 mg 08/13/16 10:00 08/15/16 09:38 Deltasone - PO 40 mg DAILY MICHAEL Administration Sotalol HCl 120 mg 08/11/16 10:00 08/15/16 09:38 Betapace - PO 120 mg BID MICHAEL Administration Valsartan 80 mg 08/10/16 10:00 08/15/16 09:39 Diovan - PO 80 mg DAILY MICHAEL Administration Medication Instructions Recorded Tiotropium [place] [Spiriva] 1 inh PO BID 07/19/14 Roflumilast [Daliresp -] 500 mcg PO DAILY #30 tablet 07/21/14 Metformin HCl 500 mg PO DAILY 05/09/15 Pregabalin [Lyrica -] 75 mg PO BID 05/09/15 Albuterol 0.083% Nebulizer Lisa 1 neb NEB BID 12/01/15 [Ventolin 0.083% Nebulizer Soln -] Aspirin [ASA -] 81 mg PO DAILY 04/18/16 Calcium Carbonate [Calcium] 500 mg PO BID 04/18/16 Escitalopram Oxalate [Lexapro -] 10 mg PO BID 04/18/16 Pantoprazole Sodium [Protonix] 40 mg PO DAILY 04/18/16 Pramipexole Di-HCl [Mirapex] 0.5 mg PO HS 04/18/16 Sucralfate [Carafate] 1 gm PO BID 04/18/16 [place]-3 Acid Ethyl Esters [Lovaza 2 gm PO BID cap 04/21/16 -] Benzonatate [Tessalon Perle -] 200 mg PO BID 05/04/16 Levalbuterol Tartrate [Xopenex Hfa] 15 gm IH DAILY PRN 05/04/16 Nortriptyline HCl [Pamelor -] 30 mg PO HS 05/04/16 Salmeterol/Fluticasone [Advair 1 inh PO BID 07/13/16 100Mcg/50Mcg -] Atorvastatin Ca [Lipitor] 10 mg PO HS #30 tablet 07/16/16 Ferrous Sulfate [Feosol] 325 mg PO BIDWM #120 ud 07/16/16 Apixaban [Eliquis -] 2.5 mg PO BID #60 tablet 07/26/16 Methimazole [Tapazole -] 15 mg PO TID #90 tablet 07/26/16 Sotalol HCl [Betapace -] 80 mg PO BID #60 tablet 07/26/16 Insulin Glargine,Hum.rec.anlog 5 units SQ HS #1 vial 08/03/16 [Lantus (nf)] Insulin Sliding Scale [Novolog 1 vial SQ ACHS #30 units 08/03/16 Vial Sliding Scale -] Prednisone See Taper PO BID #60 tablet 08/03/16 Methimazole [Tapazole] 10 mg PO TID 08/09/16 Nortriptyline HCl [Pamelor -] 10 mg PO HS 08/09/16 Pramipexole Di-HCl [Mirapex] 0.5 mg PO HS 08/09/16 Pregabalin [Lyrica] 75 mg PO DAILY 08/09/16 ASSESSMENT AND PLAN: 86 yr old woman with multiple co-morbidities from [facility] was brought in for difficulty breathing, was found to be in rapid Afib in the ED admitted for sepsis likely from pna, rapid Afib, and hypoxia/respiratory distress. #s/p Sepsis due to Strept Pneumo. On IV rocephin 1gm iv daily continue # Acute Hypoxemia with hypercapnea on ABG that was done stat, placed the patient on bipap today. #Afib with RVR continue sotalol 80mg po bid ,continue cardizem drip and titrtate as needed , On abixapan 5mg po bid #Respiratory distress/hypoxia - improved with Bipap; duonebs TID prn ,on oral prednisone . #DM novolog sliding scale with BGM ACHS #HTN/CHF Lopressor 5mg IVPush q6h prn , diovan 80m g po daily, lasix 40mg IVPB daily #CAD atorvastatin 10mg continue #Hyperthyroidism methiazole 15mg po TID #Diet: diabetic/low sodium #DVT prophylaxis - on Noac; Eliquis
--- NOTE | 2016-08-15 10:28 | PN ---
Physical Exam: SUBJECTIVE: Patient seen and examined. Says she feels well, a little bit tired. Denies difficulty breathing, chest pain, abdominal pain, headache, shortness of breath, fever. as per daughter(healthcare proxy) at bedside pt appears more tired than usual, says her mother is usually more talkative and energetic. OBJECTIVE: Vital Signs Period Temp Pulse Resp BP Sys/Pinedo Pulse Ox Last 24 Hr 98 F-98.7 F 67-76 16-20 94-147/52-73 GENERAL: The patient is awake, alert, and fully oriented, in no acute distress. HEAD: Normal with no signs of trauma. EYES: extraocular movements intact, sclera anicteric, conjunctiva clear. No ptosis. NECK: Trachea midline, full range of motion, supple. LUNGS: rhonchi throughout with expiratory wheezing b/l. HEART: Regular rate and rhythm, S1, S2 ABDOMEN: Soft, nontender, nondistended, normoactive bowel sounds EXTREMITIES: weak+ pulses, cool. NEUROLOGICAL: Normal speech, gait not observed. PSYCH: flat affect. Laboratory Results - last 24 hr 08/11/16 08/11/16 08/12/16 22:00 22:06 17:47 POC Glucometer > 400 > 400 > 400 08/14/16 08/14/16 08/14/16 10:55 16:54 21:57 POC Glucometer > 400 194.59200 244 08/15/16 08/15/16 05:26 09:30 POC Glucometer 153 168 Active Medications Generic Name Dose Route Start Last Admin Trade Name Freq PRN Reason Stop Dose Admin Albuterol Sulfate 1 amp 08/10/16 20:31 08/15/16 06:20 Ventolin 0.083% Nebulizer Soln - NEB 1 amp Q4H PRN Administration SHORT OF BREATH/WHEEZING Apixaban 5 mg 08/09/16 22:00 08/15/16 09:38 Eliquis - PO 5 mg BID MICHAEL Administration Atorvastatin Calcium 10 mg 08/09/16 22:00 08/14/16 22:07 Lipitor - PO 10 mg HS MICHAEL Administration Chlorhexidine Gluconate 1 applic 08/09/16 22:00 08/14/16 22:09 Hibiclens For Decolonization - TP Not Given HS MICHAEL Diltiazem HCl 120 mg 08/15/16 10:00 Cardizem Cd - PO DAILY MICHAEL Furosemide 40 mg 08/16/16 10:00 Lasix - PO DAILY MICHAEL Ceftriaxone Sodium 50 mls @ 100 mls/hr 08/10/16 14:45 08/15/16 09:39 Rocephin 1gm Ivpb (Pre-Docked) IVPB 100 mls/hr DAILY MICHAEL Administration Insulin Aspart 1 vial 08/13/16 11:00 08/15/16 06:42 Novolog Vial Sliding Scale - SQ 2 units ACHS MICHAEL Administration Protocol Insulin Detemir 8 units 08/12/16 22:00 08/14/16 22:09 Levemir Vial SQ 8 units HS MICHAEL Administration Methimazole 15 mg 08/09/16 22:00 08/15/16 06:41 Tapazole - PO 15 mg TID MICHAEL Administration Metoprolol Tartrate 5 mg 08/09/16 13:04 08/10/16 17:20 Lopressor Injection - IVPUSH 5 mg Q4H PRN Administration HYPERTENSION Nortriptyline HCl 30 mg 08/09/16 22:00 08/14/16 22:36 Pamelor - PO 30 mg HS MICHAEL Administration Lsubz-3-Uafq Ethyl Esters 2 gm 08/09/16 22:00 08/15/16 09:38 Lovaza - PO 2 gm BID MICHAEL Administration Prednisone 40 mg 08/13/16 10:00 08/15/16 09:38 Deltasone - PO 40 mg DAILY MICHAEL Administration Sotalol HCl 120 mg 08/11/16 10:00 08/15/16 09:38 Betapace - PO 120 mg BID MICHAEL Administration Valsartan 80 mg 08/10/16 10:00 08/15/16 09:39 Diovan - PO 80 mg DAILY MICHAEL Administration ASSESSMENT/PLAN: 86 yr old woman with multiple co-morbidities BIBEMS from [facility] for difficulty breathing, was found to be in rapid Afib in the ED admitted for sepsis likely from pna, rapid Afib, and hypoxia/respiratory distress. #Flat affect - pt underwent CT scan yesterday that was negative for acute pathology. - discussed with second daughter at bedside who says visits patient, but not as often as healthcare proxy, feels patient is appropriate. - patient smiled during interview and denies anything is wrong, denies pain and discomfort - will continue to assess mood - nortryptiline 10mg po daily #Respiratory distress/hypoxia - improved, on nasal cannula 3lpm continous, patient saturation declines when not on nasal cannula. - today nasal cannula was off and saturation declined to 80's, stat ABG showed normal po2 but elevated CO2, patient placed on Bipap during the afternoon - duonebs q4 prn - prednisone 40mg po daily - Maintain HOB >30 to reduce aspiration risk and maintain airway and respiration #Sepsis secondary to strep pneumo(pos urine) - rocephin 1gm iv daily - 08/16 will be final day to complete 7-day course --start 08/10 #Afib, persistent - improving, rate controlled. likely triggered by infection - sotalol 120mg po bid - cardizem 30mg po TID - abixapan 5mg po bid - eliquis 5mg po bid #Respiratory distress/hypoxia - improved, on nasal cannula 3lpm continous, patient saturation declines when not on nasal cannula. - today nasal cannula was off and saturation declined to 80's, stat ABG showed normal po2 but elevated CO2, patient placed on Bipap during the afternoon - duonebs q4 prn - prednisone 40mg po daily - Maintain HOB >30 to reduce aspiration risk and maintian airway and respiration #DM - levemir 8u subq HS - novolog sliding scale - BGM ACHS #HTN/CHF - metoprolol tart 5mg IVPush q4h prn - diovan 80m g po daily - lasix 40mg IVPB qdaily #CAD - atorvastatin 10mg HS po - lovaza 2gm po BID #Hyperthyroidism -methiazole 15mg po TID #deconditioning - PT eval #Diet: diabetic/low sodium #DVT prophylaxis - on anticoagulation Visit type - Emergency Visit Emergency Visit: No - New Patient This patient is new to me today: No - Critical Care Critical Care patient: No - Discharge Referral Referred to [facility] No
--- NOTE | 2016-08-15 10:50 | PN ---
Progress Note, Physician History of Present Illness: PULMONARY AWAKE,STILL CONGESTED,BUT IN NAD. - Current Medication List Current Medications: Active Medications Albuterol Sulfate (Ventolin 0.083% Nebulizer Soln -) 1 amp NEB Q4H PRN PRN Reason: SHORT OF BREATH/WHEEZING Last Admin: 08/15/16 06:20 Dose: 1 amp Apixaban (Eliquis -) 5 mg PO BID [facility] Last Admin: 08/15/16 09:38 Dose: 5 mg Atorvastatin Calcium (Lipitor -) 10 mg PO HS [facility] Last Admin: 08/14/16 22:07 Dose: 10 mg Chlorhexidine Gluconate (Hibiclens For Decolonization -) 1 applic TP HS [facility] Last Admin: 08/14/16 22:09 Dose: Not Given Diltiazem HCl (Cardizem Cd -) 120 mg PO DAILY [facility] Furosemide (Lasix -) 40 mg PO DAILY [facility] Ceftriaxone Sodium (Rocephin 1gm Ivpb (Pre-Docked)) 50 mls @ 100 mls/hr IVPB DAILY [facility] Last Admin: 08/15/16 09:39 Dose: 100 mls/hr Insulin Aspart (Novolog Vial Sliding Scale -) 1 vial SQ ACHS [facility] PRN Reason: Protocol Last Admin: 08/15/16 06:42 Dose: 2 units Insulin Detemir (Levemir Vial) 8 units SQ HS [facility] Last Admin: 08/14/16 22:09 Dose: 8 units Methimazole (Tapazole -) 15 mg PO TID [facility] Last Admin: 08/15/16 06:41 Dose: 15 mg Metoprolol Tartrate (Lopressor Injection -) 5 mg IVPUSH Q4H PRN PRN Reason: HYPERTENSION Last Admin: 08/10/16 17:20 Dose: 5 mg Nortriptyline HCl (Pamelor -) 30 mg PO HS [facility] Last Admin: 08/14/16 22:36 Dose: 30 mg Sdpdq-3-Ghfs Ethyl Esters (Lovaza -) 2 gm PO BID [facility] Last Admin: 08/15/16 09:38 Dose: 2 gm Prednisone (Deltasone -) 40 mg PO DAILY [facility] Last Admin: 08/15/16 09:38 Dose: 40 mg Sotalol HCl (Betapace -) 120 mg PO BID [facility] Last Admin: 08/15/16 09:38 Dose: 120 mg Valsartan (Diovan -) 80 mg PO DAILY [facility] Last Admin: 08/15/16 09:39 Dose: 80 mg - Objective Vital Signs: Vital Signs Temperature 98.6 F 08/15/16 05:54 Pulse Rate 74 08/15/16 05:54 Respiratory Rate 20 08/15/16 05:54 Blood Pressure 147/73 08/15/16 05:54 O2 Sat by Pulse Oximetry (%) 92 L 08/14/16 09:50 Constitutional: Yes: Well Nourished, Calm Eyes: Yes: WNL HENT: Yes: WNL Neck: Yes: WNL Cardiovascular: Yes: Pulse Irregular, S1, S2 Respiratory: Yes: Rhonchi (NEETU RHONCHI) Gastrointestinal: Yes: WNL Extremities: Yes: WNL Edema: Yes (TRACE) Labs: CBC, BMP 08/14/16 05:00 08/14/16 05:00 INR, PTT INR 1.17 (0.82-1.09) H 08/09/16 09:30 Assessment/Plan A/P Pneumonia UTI Sepsis Atrial Fibrillation with RVR improving Acute on Chronic LV Diastolic Heart Failure likely rate related CAD Acute COPD Exacerbation HTN DM Hypercholesterolemia Hyperthyroidism - continue antibiotics - Lasix - BiPAP PRN - O2 to keep SpO2 >90% - prednisone - glucose control - inhaled bronchodilators - monitor urine output, creatinine - PO as tolerated - DVT/GI prophylaxis - chest x-ray am Problem List - Problems (1) Acute on chronic respiratory failure with hypoxia and hypercapnia Code(s): J96.21 - ACUTE AND CHRONIC RESPIRATORY FAILURE WITH HYPOXIA J96.22 - ACUTE AND CHRONIC RESPIRATORY FAILURE WITH HYPERCAPNIA (2) Pneumonia Code(s): J18.9 - PNEUMONIA, UNSPECIFIED ORGANISM (3) UTI (urinary tract infection) Code(s): N39.0 - URINARY TRACT INFECTION, SITE NOT SPECIFIED Qualifiers: Qualified Code(s): N39.0 - Urinary tract infection, site not specified (4) Sepsis Code(s): A41.9 - SEPSIS, UNSPECIFIED ORGANISM Qualifiers: Qualified Code(s): A41.9 - Sepsis, unspecified organism (5) Atrial fibrillation with rapid ventricular response Code(s): I48.91 - UNSPECIFIED ATRIAL FIBRILLATION (6) Acute exacerbation of chronic obstructive pulmonary disease Code(s): J44.1 - CHRONIC OBSTRUCTIVE PULMONARY DISEASE W (ACUTE) EXACERBATION (7) Acute on chronic diastolic (congestive) heart failure Code(s): I50.33 - ACUTE ON CHRONIC DIASTOLIC (CONGESTIVE) HEART FAILURE (8) Coronary artery disease Code(s): I25.10 - ATHSCL HEART DISEASE OF [place] CORONARY ARTERY W/O ANG PCTRS Qualifiers: Qualified Code(s): I25.10 - Atherosclerotic heart disease of [place] coronary artery without angina pectoris (9) Diabetes Code(s): E11.9 - TYPE 2 DIABETES MELLITUS WITHOUT COMPLICATIONS Qualifiers: Qualified Code(s): E11.9 - Type 2 diabetes mellitus without complications (10) HTN (hypertension) Code(s): I10 - ESSENTIAL (PRIMARY) HYPERTENSION Qualifiers: Qualified Code(s): I10 - Essential (primary) hypertension (11) Hyperlipidemia Code(s): E78.5 - HYPERLIPIDEMIA, UNSPECIFIED Qualifiers: Qualified Code(s): E78.2 - Mixed hyperlipidemia
--- NOTE | 2016-08-15 13:24 | PN ---
Progress Note, Physician History of Present Illness: Awake, eating lunch in bed Breathing non-labored Occasional cough Offers no complaints Afebrile WBC improved BC no growth - Current Medication List Current Medications: Active Medications Albuterol Sulfate (Ventolin 0.083% Nebulizer Soln -) 1 amp NEB Q4H PRN PRN Reason: SHORT OF BREATH/WHEEZING Last Admin: 08/15/16 10:52 Dose: 1 amp Apixaban (Eliquis -) 5 mg PO BID [facility] Last Admin: 08/15/16 09:38 Dose: 5 mg Atorvastatin Calcium (Lipitor -) 10 mg PO HS [facility] Last Admin: 08/14/16 22:07 Dose: 10 mg Chlorhexidine Gluconate (Hibiclens For Decolonization -) 1 applic TP [facility] Last Admin: 08/14/16 22:09 Dose: Not Given Diltiazem HCl (Cardizem Cd -) 120 mg PO DAILY [facility] Furosemide (Lasix -) 40 mg PO DAILY [facility] Ceftriaxone Sodium (Rocephin 1gm Ivpb (Pre-Docked)) 50 mls @ 100 mls/hr IVPB DAILY [facility] Last Admin: 08/15/16 09:39 Dose: 100 mls/hr Insulin Aspart (Novolog Vial Sliding Scale -) 1 vial SQ ACHS [facility] PRN Reason: Protocol Last Admin: 08/15/16 12:12 Dose: Not Given Insulin Detemir (Levemir Vial) 8 units SQ HS [facility] Last Admin: 08/14/16 22:09 Dose: 8 units Methimazole (Tapazole -) 15 mg PO TID [facility] Last Admin: 08/15/16 06:41 Dose: 15 mg Metoprolol Tartrate (Lopressor Injection -) 5 mg IVPUSH Q4H PRN PRN Reason: HYPERTENSION Last Admin: 08/10/16 17:20 Dose: 5 mg Nortriptyline HCl (Pamelor -) 30 mg PO HS [facility] Last Admin: 08/14/16 22:36 Dose: 30 mg Immip-2-Gjnj Ethyl Esters (Lovaza -) 2 gm PO BID [facility] Last Admin: 08/15/16 09:38 Dose: 2 gm Prednisone (Deltasone -) 40 mg PO DAILY [facility] Last Admin: 08/15/16 09:38 Dose: 40 mg Sotalol HCl (Betapace -) 120 mg PO BID [facility] Last Admin: 08/15/16 09:38 Dose: 120 mg Valsartan (Diovan -) 80 mg PO DAILY [facility] Last Admin: 08/15/16 09:39 Dose: 80 mg - Objective Vital Signs: Vital Signs Temperature 98.6 F 08/15/16 05:54 Pulse Rate 74 08/15/16 05:54 Respiratory Rate 20 08/15/16 05:54 Blood Pressure 147/73 08/15/16 05:54 O2 Sat by Pulse Oximetry (%) 92 L 08/14/16 09:50 Constitutional: Yes: No Distress Eyes: Yes: Conjunctiva Clear Cardiovascular: Yes: Regular Rate and Rhythm, Murmur, S1, S2 Respiratory: Yes: Rhonchi, Other (crepitations at bases) Gastrointestinal: Yes: Normal Bowel Sounds, Soft, Abdomen, Obese. No: Tenderness Edema: Yes Labs: CBC, BMP 08/14/16 05:00 08/14/16 05:00 INR, PTT INR 1.17 (0.82-1.09) H 08/09/16 09:30 Assessment/Plan Pneumococcal pneumonia COPD exacerbation Afib Day # 6 ceftriaxone Complete 7 day course IV antibiotics
[2016-08-15 13:29] LABS: ARTERIAL BLD GAS O2 SATURATION 96.7 % (90-98.9); ARTERIAL BLOOD GAS BASE EXCESS 16.8 meq/l (-2-2); ARTERIAL BLOOD GAS HCO3 43.5 meq/L (22-26); ARTERIAL BLOOD GAS PO2 91.5 mmHg (68-100); ARTERIAL BLOOD GAS pH 7.44 (7.35-7.45)
[2016-08-15 13:31] LABS: ALLENS TEST POSITIVE; ART PUNCT SITE RIGHT RADIAL; LPM/O2% 6L; PT. ON O2? YES; TYPE OF O2 NASAL
[2016-08-15] MEDS: CHLORHEXIDINE GLUCONATE 4% CLEANSER FOR DECOLONIZATION TP SCH (21:55)
[2016-08-15] MEDS: INSULIN DETEMIR 100 UNITS/ML MDV SQ SCH (21:55)
[2016-08-15] MEDS: ATORVASTATIN CA 10 MG TABLET (FP) PO SCH (21:56)
[2016-08-15] MEDS: NORTRIPTYLINE HCL 10 MG CAPSULE PO SCH (21:58)
[2016-08-16] MEDS: ALBUTEROL SO4 0.083% IH SOL 2.5 MG/3 ML VIAL.NEB. NEB PRN ×3 (03:20→17:56)
[2016-08-16] MEDS: METHIMAZOLE 5 MG TABLET (FP) PO SCH ×3 (06:02→21:48)
[2016-08-16] MEDS: INSULIN SLIDING SCALE (NOVOLOG) 1 VIAL SQ SCH ×4 (06:04→21:48)
[2016-08-16 08:13] LABS: MCH 21.1 pg (25.7-33.7); MCHC 29.2 g/dl (32.0-36.0); MEAN CELL VOLUME 72.3 fl (80-96); PLATELET COUNT 174 K/MM3 (134-434); RDW 27.7 % (11.6-15.6); WHITE BLOOD COUNT 22.6 K/mm3 (4.0-10.0)
[2016-08-16 09:10] LABS: CALCIUM 8.8 mg/dL (8.5-10.1); CREATININE 0.7 mg/dL (0.55-1.02)
[2016-08-16] MEDS: OMEGA-3 ACID ETHYL ESTERS (FATTY-ACIDS) 1 GM CAPSULE (FP) PO SCH ×2 (09:49→21:48)
[2016-08-16] MEDS: SOTALOL HCL 80 MG TABLET (FP) PO SCH ×2 (09:50→10:56)
[2016-08-16] MEDS: VALSARTAN 80 MG TABLET (UD) PO SCH ×2 (09:50→10:56)
[2016-08-16] MEDS: APIXABAN 5 MG TABLET PO SCH ×3 (09:50→21:48)
[2016-08-16] MEDS: CEFTRIAXONE 50 ML IVPB SCH (09:50)
[2016-08-16] MEDS ORDERED: FUROSEMIDE 40 MG TABLET (FP) PO SCH (10:00)
--- NOTE | 2016-08-16 10:29 | PN ---
Progress Note, Physician History of Present Illness: Dyspnea slowly improving, brief episode of chest discomfort spontaneously resolved, EKG without changes. Hypotensive responsive to hydration. - Current Medication List Current Medications: Active Medications Albuterol Sulfate (Ventolin 0.083% Nebulizer Soln -) 1 amp NEB Q4H PRN PRN Reason: SHORT OF BREATH/WHEEZING Last Admin: 08/16/16 09:30 Dose: 1 amp Apixaban (Eliquis -) 5 mg PO BID [facility] Last Admin: 08/15/16 21:55 Dose: 5 mg Atorvastatin Calcium (Lipitor -) 10 mg PO HS [facility] Last Admin: 08/15/16 21:56 Dose: 10 mg Chlorhexidine Gluconate (Hibiclens For Decolonization -) 1 applic TP [facility] Last Admin: 08/15/16 21:55 Dose: Not Given Diltiazem HCl (Cardizem Cd -) 120 mg PO DAILY [facility] Last Admin: 08/15/16 14:54 Dose: 120 mg Furosemide (Lasix -) 40 mg PO DAILY [facility] Ceftriaxone Sodium (Rocephin 1gm Ivpb (Pre-Docked)) 50 mls @ 100 mls/hr IVPB DAILY [facility] Last Admin: 08/16/16 09:50 Dose: 100 mls/hr Sodium Chloride (Normal Saline -) 1,000 mls @ 75 mls/hr IV ASDIR [facility] Stop: 08/16/16 22:14 Insulin Aspart (Novolog Vial Sliding Scale -) 1 vial SQ ACHS [facility] PRN Reason: Protocol Last Admin: 08/16/16 06:04 Dose: Not Given Insulin Detemir (Levemir Vial) 8 units SQ [facility] Last Admin: 08/15/16 21:55 Dose: 8 units Methimazole (Tapazole -) 15 mg PO TID [facility] Last Admin: 08/16/16 06:02 Dose: 15 mg Metoprolol Tartrate (Lopressor Injection -) 5 mg IVPUSH Q4H PRN PRN Reason: HYPERTENSION Last Admin: 08/10/16 17:20 Dose: 5 mg Nortriptyline HCl (Pamelor -) 30 mg PO HS [facility] Last Admin: 08/15/16 21:58 Dose: 30 mg Tueak-3-Oebg Ethyl Esters (Lovaza -) 2 gm PO BID [facility] Last Admin: 08/16/16 09:49 Dose: 2 gm Prednisone (Deltasone -) 40 mg PO DAILY [facility] Last Admin: 08/15/16 09:38 Dose: 40 mg Fluticasone/Salmeterol (Advair 100mcg/50mcg -) 1 puff IH BID [facility] Sotalol HCl (Betapace -) 120 mg PO BID [facility] Last Admin: 08/15/16 21:53 Dose: 120 mg Valsartan (Diovan -) 80 mg PO DAILY [facility] Last Admin: 08/15/16 09:39 Dose: 80 mg - Objective Vital Signs: Vital Signs Temperature 97.5 F L 08/16/16 05:00 Pulse Rate 79 08/16/16 09:30 Respiratory Rate 18 08/16/16 05:00 Blood Pressure 94/66 08/16/16 05:00 O2 Sat by Pulse Oximetry (%) 93 L 08/16/16 10:00 Constitutional: Yes: No Distress, Calm, Thin Neck: Yes: Supple Cardiovascular: Yes: Regular Rate and Rhythm Respiratory: Yes: Regular, Diminished, On Nasal O2 Gastrointestinal: Yes: Normal Bowel Sounds, Soft Edema: No Labs: CBC, BMP 08/16/16 05:38 08/16/16 05:38 INR, PTT INR 1.17 (0.82-1.09) H 08/09/16 09:30 Problem List - Problems (1) Acute on chronic diastolic (congestive) heart failure Code(s): I50.33 - ACUTE ON CHRONIC DIASTOLIC (CONGESTIVE) HEART FAILURE (2) Acute on chronic respiratory failure with hypoxia and hypercapnia Code(s): J96.21 - ACUTE AND CHRONIC RESPIRATORY FAILURE WITH HYPOXIA J96.22 - ACUTE AND CHRONIC RESPIRATORY FAILURE WITH HYPERCAPNIA (3) Atrial fibrillation with rapid ventricular response Code(s): I48.91 - UNSPECIFIED ATRIAL FIBRILLATION (4) Paroxysmal atrial fibrillation Code(s): I48.0 - PAROXYSMAL ATRIAL FIBRILLATION (5) Acute exacerbation of chronic obstructive pulmonary disease Code(s): J44.1 - CHRONIC OBSTRUCTIVE PULMONARY DISEASE W (ACUTE) EXACERBATION (6) Anemia Code(s): D64.9 - ANEMIA, UNSPECIFIED Qualifiers: Qualified Code(s): D64.9 - Anemia, unspecified (7) Coronary artery disease Code(s): I25.10 - ATHSCL HEART DISEASE OF [place] CORONARY ARTERY W/O ANG PCTRS Qualifiers: Qualified Code(s): I25.10 - Atherosclerotic heart disease of [place] coronary artery without angina pectoris (8) Gastric AV malformation Code(s): Q27.33 - ARTERIOVENOUS MALFORMATION OF DIGESTIVE SYSTEM VESSEL (9) HTN (hypertension) Code(s): I10 - ESSENTIAL (PRIMARY) HYPERTENSION Qualifiers: Qualified Code(s): I10 - Essential (primary) hypertension (10) Hyperlipidemia Code(s): E78.5 - HYPERLIPIDEMIA, UNSPECIFIED Qualifiers: Qualified Code(s): E78.2 - Mixed hyperlipidemia (11) Hyperthyroidism Code(s): E05.90 - THYROTOXICOSIS, UNSP WITHOUT THYROTOXIC CRISIS OR STORM Assessment/Plan 1. Hypercapeniec respiratory failure related to COPD/emphysema exacerbation, resolving 2. Paroxysmal atrial fibrillation currently in sinus rhythm [id number] score of 7 on NOAC's 3. Diastolic LV dysfunction with chronic class I-II NYHA classification LV failure, compensated 4. CAD non obstructive CAD angina pectoris 4. HTN 5. NIDDM 6. Hyperlipidemia 7. Parkinson's disease 8. Hyperthyroidism 9. Anemia 10. History of gastritis - gastric AVM post cautery PLAN: 1. Continue Sotalol 120 bid with close monitoring of QTc interval 2. Continue Cardizem CD 120 qd 3. Continue Diovan 80 qd 4. Hold Lasix, judicious hydration as you are 5. Continue Continue A/C with Eliquis 5 bid with caution considering the above noted history of anemia and GI bleed 6. Continue Lovaza 2 bid and Lipitor 10 qhs 7. Bronchodilators and oral steroid taper, O2 as needed per primary team 8. Continue Tapazole
[2016-08-16 12:40] LABS: ARTERIAL BLD GAS O2 SATURATION 88.4 % (90-98.9); ARTERIAL BLOOD GAS BASE EXCESS 14.9 meq/l (-2-2); ARTERIAL BLOOD GAS PO2 55.6 mmHg (68-100)
[2016-08-16 12:41] LABS: ALLENS TEST POSITIVE; ART PUNCT SITE RIGHT RADIAL; ARTERIAL BLOOD GAS HCO3 40.1 meq/L (22-26); LPM/O2% 40%; PT. ON O2? YES; TYPE OF O2 VENTIMASK
--- NOTE | 2016-08-16 12:52 | PN ---
Progress Note, Physician History of Present Illness: Awake, seated in bed Not acutely dyspneic No c/o chest pain Noted to desaturate earlier this am No fever/ chills - Current Medication List Current Medications: Active Medications Albuterol Sulfate (Ventolin 0.083% Nebulizer Soln -) 1 amp NEB Q4H PRN PRN Reason: SHORT OF BREATH/WHEEZING Last Admin: 08/16/16 09:30 Dose: 1 amp Apixaban (Eliquis -) 5 mg PO BID [facility] Last Admin: 08/15/16 21:55 Dose: 5 mg Atorvastatin Calcium (Lipitor -) 10 mg PO [facility] Last Admin: 08/15/16 21:56 Dose: 10 mg Chlorhexidine Gluconate (Hibiclens For Decolonization -) 1 applic TP [facility] Last Admin: 08/15/16 21:55 Dose: Not Given Diltiazem HCl (Cardizem Cd -) 120 mg PO DAILY [facility] Last Admin: 08/16/16 10:56 Dose: Not Given Ceftriaxone Sodium (Rocephin 1gm Ivpb (Pre-Docked)) 50 mls @ 100 mls/hr IVPB DAILY [facility] Last Admin: 08/16/16 09:50 Dose: 100 mls/hr Sodium Chloride (Normal Saline -) 1,000 mls @ 75 mls/hr IV ASDIR [facility] Stop: 08/16/16 22:14 Insulin Aspart (Novolog Vial Sliding Scale -) 1 vial SQ ACHS [facility] PRN Reason: Protocol Last Admin: 08/16/16 12:20 Dose: Not Given Insulin Detemir (Levemir Vial) 8 units SQ [facility] Last Admin: 08/15/16 21:55 Dose: 8 units Methimazole (Tapazole -) 15 mg PO TID [facility] Last Admin: 08/16/16 06:02 Dose: 15 mg Metoprolol Tartrate (Lopressor Injection -) 5 mg IVPUSH Q4H PRN PRN Reason: HYPERTENSION Last Admin: 08/10/16 17:20 Dose: 5 mg Nortriptyline HCl (Pamelor -) 30 mg PO HS [facility] Last Admin: 08/15/16 21:58 Dose: 30 mg Zbbvj-0-Wrev Ethyl Esters (Lovaza -) 2 gm PO BID [facility] Last Admin: 08/16/16 09:49 Dose: 2 gm Prednisone (Deltasone -) 40 mg PO DAILY [facility] Last Admin: 08/15/16 09:38 Dose: 40 mg Fluticasone/Salmeterol (Advair 100mcg/50mcg -) 1 puff IH BID [facility] Sotalol HCl (Betapace -) 120 mg PO BID [facility] Last Admin: 08/16/16 10:56 Dose: Not Given Valsartan (Diovan -) 80 mg PO DAILY [facility] Last Admin: 08/16/16 10:56 Dose: Not Given - Objective Vital Signs: Vital Signs Temperature 97.5 F L 08/16/16 05:00 Pulse Rate 79 08/16/16 09:30 Respiratory Rate 18 08/16/16 05:00 Blood Pressure 94/66 08/16/16 05:00 O2 Sat by Pulse Oximetry (%) 93 L 08/16/16 10:00 Constitutional: Yes: No Distress Eyes: Yes: Conjunctiva Clear Cardiovascular: Yes: Regular Rate and Rhythm, S2 Respiratory: Yes: Diminished Gastrointestinal: Yes: Normal Bowel Sounds, Soft. No: Tenderness Edema: LLE: 1+, RLE: 1+ Labs: CBC, BMP 08/16/16 05:38 08/16/16 05:38 INR, PTT INR 1.17 (0.82-1.09) H 08/09/16 09:30 Assessment/Plan Pneumococcal pneumonia COPD exacerbation Afib Day # 6 ceftriaxone Complete 7 day course IV antibiotics
[2016-08-16] MEDS: SODIUM CHLORIDE 1,000 ML IV SCH ×2 (13:00→13:20)
--- NOTE | 2016-08-16 13:11 | PN ---
Progress Note (short form) - Note Progress Note: PULMONARY APPEARS TO BE REQUIRING HIGHER CONCENTRATIONS OF O2 NOW ON BIPAP DUE TO DIAPHORESIS AFEBRILE/HR 81 94/66 ANICTERIC DIMINISHED BREATH SOUNDS S1S2 BS+ SOFT NO EDEMA LABS/MEDS/IMAGING/NOTES REVIEWED Pneumonia UTI Sepsis Atrial Fibrillation with RVR improving Acute on Chronic LV Diastolic Heart Failure likely rate related CAD Acute COPD Exacerbation HTN DM Hypercholesterolemia Hyperthyroidism - continue antibiotics - Lasix - BiPAP PRN - O2 to keep SpO2 >90% - prednisone - glucose control - inhaled bronchodilators - monitor urine output, creatinine - PO as tolerated - DVT/GI prophylaxis - f/u cxr CLOSE MONITORING ON TELE Carmela GREEN MD
[2016-08-16] MEDS: FLUTICASONE/SALMETEROL 100 MCG/50 MCG DISKUS IH SCH ×2 (13:19→22:00)
[2016-08-16] MEDS: predniSONE 20 MG TABLET (UD) PO SCH (13:20)
--- NOTE | 2016-08-16 15:33 | EKG ---
Test Reason : Blood Pressure : / mmHG Vent. Rate : 082 BPM Atrial Rate : 082 BPM P-R Int : 108 ms QRS Dur : 078 ms QT Int : 394 ms P-R-T Axes : 038 -17 001 degrees QTc Int : 460 ms SINUS RHYTHM WITH SHORT FL NONSPECIFIC T WAVE ABNORMALITY ABNORMAL ECG WHEN COMPARED WITH ECG OF 10-AUG-2016 20:02, PREMATURE ATRIAL COMPLEXES ARE NO LONGER PRESENT NONSPECIFIC T WAVE ABNORMALITY HAS REPLACED INVERTED T WAVES IN LATERAL LEADS Confirmed by DAYDAY MANE MD ([id number]) on 08/16/2016 3:33:48 PM Referred By: Nunu ALONZO Confirmed By:DAYDAY MANE MD
--- NOTE | 2016-08-16 15:49 | PN ---
Physical Exam: SUBJECTIVE: Patient seen and examined feels thirsty and tired. c/o of feeling uncomfortable in bed and short of breath. this morning she became diaphoretic and hypotensive, BP 86/54 with sat <90 on nasal cannula 3lpm OBJECTIVE: Vital Signs Period Temp Pulse Resp BP Sys/Pinedo Pulse Ox Last 24 Hr 97.1 F-100.1 F 70-86 18-24 82-120/50-75 91-97 GENERAL: The patient is awake, alert, and fully oriented, in no acute distress. EYES: extraocular movements intact, sclera anicteric, conjunctiva clear. No ptosis. NECK: Trachea midline, full range of motion, supple. mild JVD on left LUNGS: rhonchi throughout with expiratory wheezing b/l, improved since yesterday HEART: Regular rate and rhythm, S1, S2. sinus today ABDOMEN: Soft, nontender, nondistended, normoactive bowel sounds EXTREMITIES: weak+ pulses, cool. NEUROLOGICAL: Normal speech, gait not observed. PSYCH: flat affect. Laboratory Results - last 24 hr 08/15/16 08/15/16 08/16/16 15:47 21:07 05:38 WBC 22.6 H D RBC 4.76 Hgb 10.1 L Hct 34.5 MCV 72.3 L MCHC 29.2 L RDW 27.7 H Plt Count 174 MPV 9.0 Neutrophils % 86.0 H Lymphocytes % 5.0 L D Monocytes % 1.0 L Band Neutrophils 8.0 D Anticoagulation Therapy Puncture Site ABG pH ABG pCO2 at Pt Temp ABG pO2 at Pt Temp ABG HCO3 ABG O2 Sat (Measured) ABG O2 Content ABG Base Excess Torito Test O2 Delivery Device Oxygen Flow Rate Vent Mode Vent Rate Mechanical Rate Pressure Support Vent Sodium Potassium Chloride Carbon Dioxide Anion Gap BUN Creatinine POC Glucometer 324 269 Random Glucose Calcium Troponin I 08/16/16 08/16/16 08/16/16 05:38 06:01 10:23 WBC RBC Hgb Hct MCV MCHC RDW Plt Count MPV Neutrophils % Lymphocytes % Monocytes % Band Neutrophils Anticoagulation Therapy Puncture Site ABG pH ABG pCO2 at Pt Temp ABG pO2 at Pt Temp ABG HCO3 ABG O2 Sat (Measured) ABG O2 Content ABG Base Excess [place]ito Test O2 Delivery Device Oxygen Flow Rate Vent Mode Vent Rate Mechanical Rate Pressure Support Vent Sodium 146 H Potassium 4.6 D Chloride 101 Carbon Dioxide 41 H Anion Gap 4 L BUN 51 H Creatinine 0.7 POC Glucometer 115 Random Glucose 99 D Calcium 8.8 Troponin I 0.04 08/16/16 08/16/16 10:50 12:36 WBC RBC Hgb Hct MCV MCHC RDW Plt Count MPV Neutrophils % Lymphocytes % Monocytes % Band Neutrophils Anticoagulation Therapy Y Puncture Site Right radial ABG pH 7.50 H ABG pCO2 at Pt Temp 51.9 H ABG pO2 at Pt Temp 55.6 L D ABG HCO3 40.1 H* ABG O2 Sat (Measured) 88.4 L ABG O2 Content 11.7 L ABG Base Excess 14.9 H Torito Test Positive O2 Delivery Device Ventimask Oxygen Flow Rate 40% Vent Mode Y Vent Rate Y Mechanical Rate Y Pressure Support Vent Y Sodium Potassium Chloride Carbon Dioxide Anion Gap BUN Creatinine POC Glucometer 107 Random Glucose Calcium Troponin I Active Medications Generic Name Dose Route Start Last Admin Trade Name Freq PRN Reason Stop Dose Admin Albuterol Sulfate 1 amp 08/10/16 20:31 08/16/16 09:30 Ventolin 0.083% Nebulizer Soln - NEB 1 amp Q4H PRN Administration SHORT OF BREATH/WHEEZING Apixaban 5 mg 08/09/16 22:00 08/16/16 13:19 Eliquis - PO 5 mg BID [facility] Administration Atorvastatin Calcium 10 mg 08/09/16 22:00 08/15/16 21:56 Lipitor - PO 10 mg HS [facility] Administration Chlorhexidine Gluconate 1 applic 08/09/16 22:00 08/15/16 21:55 Hibiclens For Decolonization - TP Not Given HS [facility] Diltiazem HCl 120 mg 08/15/16 10:00 08/16/16 10:56 Cardizem Cd - PO Not Given DAILY [facility] Ceftriaxone Sodium 50 mls @ 100 mls/hr 08/10/16 14:45 08/16/16 09:50 Rocephin 1gm Ivpb (Pre-Docked) IVPB 100 mls/hr DAILY [facility] Administration Sodium Chloride 1,000 mls @ 75 mls/hr 08/16/16 10:15 08/16/16 13:00 Normal Saline - IV 08/16/16 22:14 75 mls/hr ASDIR [facility] Administration Insulin Aspart 1 vial 08/13/16 11:00 08/16/16 12:20 Novolog Vial Sliding Scale - SQ Not Given ACHS [facility] Protocol Insulin Detemir 8 units 08/12/16 22:00 08/15/16 21:55 Levemir Vial SQ 8 units HS [facility] Administration Methimazole 15 mg 08/09/16 22:00 08/16/16 13:20 Tapazole - PO 15 mg TID [facility] Administration Methylprednisolone Sodium Succinate 40 mg 08/16/16 22:00 Solu-Medrol - IVPB BID [facility] Metoprolol Tartrate 5 mg 08/09/16 13:04 08/10/16 17:20 Lopressor Injection - IVPUSH 5 mg Q4H PRN Administration HYPERTENSION Nortriptyline HCl 30 mg 08/09/16 22:00 08/15/16 21:58 Pamelor - PO 30 mg HS [facility] Administration Autph-7-Pwpp Ethyl Esters 2 gm 08/09/16 22:00 08/16/16 09:49 Lovaza - PO 2 gm BID [facility] Administration Fluticasone/Salmeterol 1 puff 08/16/16 10:00 08/16/16 13:19 Advair 100mcg/50mcg - IH 1 puff BID [facility] Administration Sotalol HCl 120 mg 08/11/16 10:00 08/16/16 10:56 Betapace - PO Not Given BID [facility] Valsartan 80 mg 08/10/16 10:00 08/16/16 10:56 Diovan - PO Not Given DAILY [facility] ASSESSMENT/PLAN: 86 yr old woman with multiple co-morbidities BIBEMS from [facility] for difficulty breathing, was found to be in rapid Afib in the ED admitted for sepsis likely from pna, rapid Afib, and hypoxia/respiratory distress. #Hypotension - NS bolus 1L @75ml/hr - gentle hydration given diastolic CHF, reasses to avoid fluid overload prior to additional fluids. - hold antihypertensives if BP systolic <100 #Respiratory distress/hypoxia, acute exacerbation today - when changing positions and off nasal cannula, she desaturates - maintain on nasal cannula continuosly and Bipap prn - duonebs q4 prn - prednisone 40mg BID, increased today for acute exacerbation - Maintain HOB >30 to reduce aspiration risk and maintain airway and respiration , she does not tolerate laying flat. - cxy this morning with suspicion for extension of LLL pna into left upper lobe #constipation - added miralax as patient has not had a bowel movement since 08/11 according to chart #Flat affect - will continue to assess mood - nortryptiline 10mg po daily #Sepsis secondary to strep pneumo(pos urine) - rocephin 1gm iv daily - 08/16 will be final day to complete 7-day course --start 08/10 #Afib, persistent - improving, rate controlled. in sinus rhythm today - sotalol 120mg po bid hold if hypotensive - cardizem 30mg po TID - hold if hypotensive - abixapan 5mg po bid - eliquis 5mg po bid #DM - levemir 8u subq HS - novolog sliding scale - BGM ACHS #HTN/CHF - metoprolol tart 5mg IVPush q4h prn - diovan 80m g po daily hold if systolic BP <100 - lasix 40mg IVPB qdaily #CAD - atorvastatin 10mg HS po - lovaza 2gm po BID #Hyperthyroidism -methiazole 15mg po TID #deconditioning - PT eval 08/15, unable to ambulate as pt is deconditioned. #Flat affect - will continue to assess mood - nortryptiline 10mg po daily #Diet: diabetic/low sodium #DVT prophylaxis - on anticoagulation, eliquis Visit type - Emergency Visit Emergency Visit: No - New Patient This patient is new to me today: No - Critical Care Critical Care patient: No - Discharge Referral Referred to [facility] Med [facility] No
--- NOTE | 2016-08-16 17:25 | PN ---
Teaching Attending Note Name of Resident: Deon Starks ATTENDING PHYSICIAN STATEMENT I saw and evaluated the patient. I reviewed the resident's note and discussed the case with the resident. I agree with the resident's findings and plan as documented. SUBJECTIVE: per Rn pt complained of CP 3 min before MD evaluated pt ( around 10 am ) . when pt was interviewed using channel marketing manager phone , she denied any CP or SOB. she denied abd pain or depression. OBJECTIVE: BP at time of evaluation 85/50 , HR 70s NAD , flat affect. sweaty CV: RRR, no MRG , L jugular vein distention Lungs: CTAB Abd : soft, NT, ND , nL BS Ext: no edema or erythema ove rLE ASSESSMENT AND PLAN: 86 yr old woman with h/o CAD , Diastolic CHF , HTN, P Afib , and other medical problems who presented with SOB , she was diagnosed with acute COPD exacerbation , in the setting of LLL PNA. 1- LLL CAP strep Pneumonia : day 6 of ceftriaxone. pt cont to have fever , and WBC is worse ( in part due to steroids ). Cxray today showed worsening of infiltrate . - cont ceftriaxone for today, if cont to have fever will d/w ID about options. - O2 support 2- Acute copd exa : more hypoxic . Increase steroids to solu-medrol 40 BID Cont Nebs Add Advair . although hypoxic , clinical suspicion for pE is low 3- Hypotension : clinically pt looks volume depleted, also has BUN/cr > 20 , hypotension ans hypernatremia , all that indicates dehydration causing hypotension - Start NS @ 75 cc/hr x 12 hr and reevaluate - Held cardizem for now , withholding parameters for tomorrow - no signs fo fluid overload 4- H/o Diastolic CHF , recent echo frm 07/07 reviewed. nL EF . not in acute CHF now , she is dehydrated. monitor with fluids 5- P A fib : rate controlled . hold cardizem due to hypotension . cont eliquis on sotalol in sinus now 6- possible mild R hydro on Chest CT: - will obtain renal and bladder US . - post void bladder scan 7- dispo : cont tele D/W Dr. Tucker
[2016-08-16] MEDS ORDERED: ACETAMINOPHEN 325 MG TABLET (FP) PO ONE (17:43)
[2016-08-16] MEDS: POLYETHYLENE GLYCOL 3350 119 GM BTL PO SCH (18:12)
[2016-08-16] MEDS ORDERED: VALSARTAN 80 MG TABLET (UD) PO SCH (18:20)
[2016-08-16] MEDS ORDERED: INSULIN DETEMIR 100 UNITS/ML MDV SQ SCH (19:49)
[2016-08-16] MEDS: ATORVASTATIN CA 10 MG TABLET (FP) PO SCH (21:48)
[2016-08-16] MEDS: methylPREDNISolone NA SUCC 40 MG/1 ML VIAL IVPB SCH (21:48)
[2016-08-16] MEDS: NORTRIPTYLINE HCL 10 MG CAPSULE PO SCH (22:00)
--- NOTE | 2016-08-17 01:46 | HOSP ---
Physical Examination Vital Signs: Vital Signs Temperature 97 F L 08/16/16 21:00 Pulse Rate 93 H 08/16/16 21:00 Respiratory Rate 20 08/16/16 21:00 Blood Pressure 98/55 08/16/16 21:00 O2 Sat by Pulse Oximetry (%) 94 L 08/16/16 23:20 Labs: CBC, BMP 08/16/16 05:38 08/16/16 05:38 Hospitalist Encounter Assessment: I was notified by the RN that patient had DNI but to continue all resuscitations on the chart with no physician signature. I looked over the health care proxy forms and DNR/DNI form as well as speak to family members at bedside. Patient's healthcare proxy was not physically there. I explained to the family that we will print out a new code status form and will require consent from healthcare proxy due to patients mental status from medical condition. An oral phone consent was done with patients healthcare proxy with the RN as a witness. It was explained to the patients family that if a patient' s heart was to stop and we proceed with resuscitation but not intubation, the patient will more than likely even if we were to resuscitate her. Patient's family report that the patients wishes was to never be intubated. We proceeded with the consent and patient was made DNI but NOT DNR. Patient's healthcare proxy was informed that she has 24 hours to sign the documents at the hospital. All paperwork and documentation in patients chart. Visit type - Emergency Visit Emergency Visit: No - New Patient This patient is new to me today: Yes Date on this admission: 08/17/16 - Critical Care Critical Care patient: No
[2016-08-17] MEDS: SOTALOL HCL 80 MG TABLET (FP) PO SCH ×3 (06:27→23:06)
[2016-08-17] MEDS: CHLORHEXIDINE GLUCONATE 4% CLEANSER FOR DECOLONIZATION TP SCH (06:28)
[2016-08-17] MEDS: METHIMAZOLE 5 MG TABLET (FP) PO SCH ×3 (06:29→23:07)
[2016-08-17] MEDS: INSULIN SLIDING SCALE (NOVOLOG) 1 VIAL SQ SCH ×4 (06:30→23:07)
--- NOTE | 2016-08-17 07:44 | PN ---
Physical Exam: SUBJECTIVE: Patient seen and examined resting in bed, on bipap, increased respiratory rate, able to speak in short sentences. following commands. Denies chest pain. Overnight pt became hypotensive and desaturated to 80's on 6lpm. OBJECTIVE: Vital Signs Period Temp Pulse Resp BP Sys/Pinedo Pulse Ox Last 24 Hr 97 F-100.1 F 79-106 18-24 82-114/50-70 91-94 GENERAL: The patient is awake, alert, and in mild distress. EYES: extraocular movements intact. PERRLA ENT: nares patent, on Bipap NECK: Trachea midline, full range of motion, supple. LUNGS: Breath sounds rhonchi, mild crackles on right lung base. HEART: sinus, Regular rate and rhythm, S1, S2 ABDOMEN: Soft, nontender, nondistended, normoactive bowel sounds EXTREMITIES: 2+ pulses, warm, well-perfused, no edema. strength 1/5 in UE and LE. NEUROLOGICAL: Normal speech, gait not observed. PSYCH: Normal mood, normal affect. SKIN: Warm, dry, normal turgor, no rashes or lesions noted Laboratory Results - last 24 hr 08/16/16 08/16/16 08/16/16 05:38 05:38 10:23 WBC 22.6 H D RBC 4.76 Hgb 10.1 L Hct 34.5 MCV 72.3 L MCHC 29.2 L RDW 27.7 H Plt Count 174 MPV 9.0 Neutrophils % 86.0 H Lymphocytes % 5.0 L D Monocytes % 1.0 L Band Neutrophils 8.0 D Anticoagulation Therapy Puncture Site ABG pH ABG pCO2 at Pt Temp ABG pO2 at Pt Temp ABG HCO3 ABG O2 Sat (Measured) ABG O2 Content ABG Base Excess Torito Test O2 Delivery Device Oxygen Flow Rate Vent Mode Vent Rate Mechanical Rate Pressure Support Vent Sodium 146 H Potassium 4.6 D Chloride 101 Carbon Dioxide 41 H Anion Gap 4 L BUN 51 H Creatinine 0.7 POC Glucometer Random Glucose 99 D Lactic Acid Calcium 8.8 Troponin I 0.04 08/16/16 08/16/16 08/16/16 10:50 12:36 15:37 WBC RBC Hgb Hct MCV MCHC RDW Plt Count MPV Neutrophils % Lymphocytes % Monocytes % Band Neutrophils Anticoagulation Therapy Y Puncture Site Right radial ABG pH 7.50 H ABG pCO2 at Pt Temp 51.9 H ABG pO2 at Pt Temp 55.6 L D ABG HCO3 40.1 H* ABG O2 Sat (Measured) 88.4 L ABG O2 Content 11.7 L ABG Base Excess 14.9 H Torito Test Positive O2 Delivery Device Ventimask Oxygen Flow Rate 40% Vent Mode Y Vent Rate Y Mechanical Rate Y Pressure Support Vent Y Sodium Potassium Chloride Carbon Dioxide Anion Gap BUN Creatinine POC Glucometer 107 170 Random Glucose Lactic Acid Calcium Troponin I 08/16/16 08/17/16 21:30 06:16 WBC RBC Hgb Hct MCV MCHC RDW Plt Count MPV Neutrophils % Lymphocytes % Monocytes % Band Neutrophils Anticoagulation Therapy Puncture Site ABG pH ABG pCO2 at Pt Temp ABG pO2 at Pt Temp ABG HCO3 ABG O2 Sat (Measured) ABG O2 Content ABG Base Excess Torito Test O2 Delivery Device Oxygen Flow Rate Vent Mode Vent Rate Mechanical Rate Pressure Support Vent Sodium Potassium Chloride Carbon Dioxide Anion Gap BUN Creatinine POC Glucometer 185 Random Glucose Lactic Acid 1.490 Calcium Troponin I Active Medications Generic Name Dose Route Start Last Admin Trade Name Freq PRN Reason Stop Dose Admin Albuterol Sulfate 1 amp 08/10/16 20:31 08/16/16 17:56 Ventolin 0.083% Nebulizer Soln - NEB 1 amp Q4H PRN Administration SHORT OF BREATH/WHEEZING Apixaban 5 mg 08/09/16 22:00 08/16/16 21:48 Eliquis - PO 5 mg BID MICHAEL Administration Atorvastatin Calcium 10 mg 08/09/16 22:00 08/16/16 21:48 Lipitor - PO 10 mg HS MICHAEL Administration Diltiazem HCl 120 mg 08/16/16 18:20 Cardizem Cd - PO DAILY MICHAEL Ceftriaxone Sodium 50 mls @ 100 mls/hr 08/10/16 14:45 08/16/16 09:50 Rocephin 1gm Ivpb (Pre-Docked) IVPB 100 mls/hr DAILY MICHAEL Administration Insulin Aspart 1 vial 08/13/16 11:00 08/17/16 06:30 Novolog Vial Sliding Scale - SQ 2 units ACHS MICHAEL Administration Protocol Insulin Detemir 10 units 08/16/16 19:49 08/16/16 22:00 Levemir Vial SQ 10 units HS MICHAEL Administration Methimazole 15 mg 08/09/16 22:00 08/17/16 06:29 Tapazole - PO 15 mg TID MICHAEL Administration Methylprednisolone Sodium Succinate 40 mg 08/16/16 22:00 08/16/16 21:48 Solu-Medrol - IVPB 40 mg BID MICHAEL Administration Metoprolol Tartrate 5 mg 08/09/16 13:04 08/10/16 17:20 Lopressor Injection - IVPUSH 5 mg Q4H PRN Administration HYPERTENSION Nortriptyline HCl 30 mg 08/09/16 22:00 08/16/16 22:00 Pamelor - PO 30 mg HS MICHAEL Administration Opcfc-5-Tbos Ethyl Esters 2 gm 08/09/16 22:00 08/16/16 21:48 Lovaza - PO 2 gm BID MICHAEL Administration Polyethylene Glycol 17 gm 08/16/16 17:45 08/16/16 18:12 Miralax (For Daily Use) - PO 17 gm DAILY MICHAEL Administration Fluticasone/Salmeterol 1 puff 08/16/16 10:00 08/16/16 22:00 Advair 100mcg/50mcg - IH Not Given BID MICHAEL Sotalol HCl 120 mg 08/16/16 18:20 08/17/16 06:27 Betapace - PO Not Given BID MICHAEL Valsartan 80 mg 08/16/16 18:20 Diovan - PO DAILY MICHAEL ASSESSMENT/PLAN: 86 yr old woman with multiple co-morbidities BIBEMS from [facility] for difficulty breathing, was found to be in rapid Afib in the ED admitted for sepsis likely from pna, rapid Afib, and hypoxia/respiratory distress. GOC discussed with family and Health care proxy Nuha [phone]. After discussing recent events, patient's recent chest xray, hypotension, increased need for Bipap, the family expressed understanding of patient's condition and in accordance to the patient's previously expressed wishes that she be made DNR/ DNI. All questions answered to the family's satisfaction. Attempts to discuss GOC with patient directly were unsuccessful. #Sepsis secondary to strep pneumo(pos urine), addition of zosyn given worsening of chest xray. - left pleural effusion suspicion for underlying empyema, chest ct w/o contrast ordered for further evaluation, may require drainage - zosyn 3.375gm q8hr --start 08/17 - rocephin 1gm iv daily --start 08/10 #Hypotension - NS bolus 1L @50ml/hr - gentle hydration given diastolic CHF, reasses to avoid fluid overload prior to additional fluids. - hold antihypertensives if BP systolic <100 #Respiratory distress/hypoxia, acute exacerbation overnight. patient is DNR/ DNI. will monitor closely. - currently on Bipap. - duonebs q4 prn - prednisone 40mg BID - Maintain HOB >30 to reduce aspiration risk and maintain airway and respiration , she does not tolerate laying flat. #constipation - added miralax as patient has not had a bowel movement since 08/11 according to chart #Sepsis secondary to strep pneumo(pos urine), will continue antibiotics for additional 3 days given worsening chest xray. - rocephin 1gm iv daily --start 08/10 #Afib, persistent - improving, rate controlled. in sinus rhythm today - sotalol 120mg po bid hold if hypotensive - cardizem 30mg po TID - hold if hypotensive - abixapan 5mg po bid - eliquis 5mg po bid #DM - uncontrolled - levemir 10u subq HS - novolog sliding scale - BGM ACHS #HTN/CHF - currently hypotensive - metoprolol tart 5mg IVPush q4h prn - diovan 80m g po daily hold if systolic BP <100 - lasix 40mg IVPB qdaily - hold when receiving fluids. #CAD - atorvastatin 10mg HS po - lovaza 2gm po BID #Hyperthyroidism -methiazole 15mg po TID #deconditioning - PT eval 08/15, unable to ambulate as pt is deconditioned. #Flat affect - will continue to assess mood - nortryptiline 10mg po daily #Diet: diabetic/low sodium #DVT prophylaxis - on anticoagulation, eliquis code status: DNR/DNI Visit type - Emergency Visit Emergency Visit: No - New Patient This patient is new to me today: No - Critical Care Critical Care patient: No - Discharge Referral Referred to [facility] No
[2016-08-17 08:16] LABS: MCH 21.1 pg (25.7-33.7); MCHC 29.7 g/dl (32.0-36.0); MEAN CELL VOLUME 71.1 fl (80-96); MEAN PLT VOLUME 9.4 fl (7.5-11.1); PLATELET COUNT 194 K/MM3 (134-434); RDW 27.9 % (11.6-15.6); WHITE BLOOD COUNT 22.6 K/mm3 (4.0-10.0)
[2016-08-17 08:51] LABS: CALCIUM 8.8 mg/dL (8.5-10.1); CREATININE 0.7 mg/dL (0.55-1.02)
[2016-08-17] MEDS: methylPREDNISolone NA SUCC 40 MG/1 ML VIAL IVPB SCH ×2 (09:00→23:05)
[2016-08-17] MEDS: CEFTRIAXONE 50 ML IVPB SCH (09:29)
[2016-08-17] MEDS: FLUTICASONE/SALMETEROL 100 MCG/50 MCG DISKUS IH SCH ×2 (09:31→23:22)
[2016-08-17] MEDS: APIXABAN 5 MG TABLET PO SCH ×2 (09:35→23:05)
[2016-08-17] MEDS: OMEGA-3 ACID ETHYL ESTERS (FATTY-ACIDS) 1 GM CAPSULE (FP) PO SCH ×2 (09:35→23:05)
[2016-08-17] MEDS: POLYETHYLENE GLYCOL 3350 119 GM BTL PO SCH ×2 (09:36→23:07)
[2016-08-17] MEDS ORDERED: SODIUM CHLORIDE 1,000 ML IV SCH (09:45)
--- NOTE | 2016-08-17 10:39 | PN ---
Progress Note, Physician Chief Complaint: Currently in atrial fibrillation with rapid ventricular response On BIPAP History of Present Illness: Patient was seen and examined. Arousable. Chart was reviewed - Current Medication List Current Medications: Active Medications Albuterol Sulfate (Ventolin 0.083% Nebulizer Soln -) 1 amp NEB Q4H PRN PRN Reason: SHORT OF BREATH/WHEEZING Last Admin: 08/16/16 17:56 Dose: 1 amp Apixaban (Eliquis -) 5 mg PO BID [facility] Last Admin: 08/17/16 09:35 Dose: 5 mg Atorvastatin Calcium (Lipitor -) 10 mg PO HS [facility] Last Admin: 08/16/16 21:48 Dose: 10 mg Diltiazem HCl (Cardizem Cd -) 120 mg PO DAILY [facility] Last Admin: 08/17/16 09:32 Dose: 120 mg Ceftriaxone Sodium (Rocephin 1gm Ivpb (Pre-Docked)) 50 mls @ 100 mls/hr IVPB DAILY [facility] Last Admin: 08/17/16 09:29 Dose: 100 mls/hr Sodium Chloride (Normal Saline -) 1,000 mls @ 50 mls/hr IV ASDIR [facility] Stop: 08/17/16 17:44 Insulin Aspart (Novolog Vial Sliding Scale -) 1 vial SQ ACHS [facility] PRN Reason: Protocol Last Admin: 08/17/16 06:30 Dose: 2 units Insulin Detemir (Levemir Vial) 8 units SQ HS [facility] Methimazole (Tapazole -) 15 mg PO TID [facility] Last Admin: 08/17/16 06:29 Dose: 15 mg Methylprednisolone Sodium Succinate (Solu-Medrol -) 40 mg IVPB BID [facility] Last Admin: 08/17/16 09:00 Dose: 40 mg Metoprolol Tartrate (Lopressor Injection -) 5 mg IVPUSH Q4H PRN PRN Reason: HYPERTENSION Last Admin: 08/10/16 17:20 Dose: 5 mg Nortriptyline HCl (Pamelor -) 30 mg PO HS [facility] Last Admin: 08/16/16 22:00 Dose: 30 mg Nkkgn-5-Vafl Ethyl Esters (Lovaza -) 2 gm PO BID [facility] Last Admin: 08/17/16 09:35 Dose: 2 gm Polyethylene Glycol (Miralax (For Daily Use) -) 17 gm PO DAILY [facility] Last Admin: 08/17/16 09:36 Dose: 17 gm Fluticasone/Salmeterol (Advair 100mcg/50mcg -) 1 puff IH BID [facility] Last Admin: 08/17/16 09:31 Dose: 1 puff Sotalol HCl (Betapace -) 120 mg PO BID [facility] Last Admin: 08/17/16 09:33 Dose: 120 mg - Objective Vital Signs: Vital Signs Temperature 97.7 F 08/17/16 08:02 Pulse Rate 105 H 08/17/16 08:02 Respiratory Rate 22 08/17/16 08:03 Blood Pressure 120/78 08/17/16 08:02 O2 Sat by Pulse Oximetry (%) 92 L 08/17/16 08:03 Neck: Yes: Supple Cardiovascular: Yes: Tachycardia, Pulse Irregular, S1, S2 Respiratory: Yes: Diminished, On BiPap Gastrointestinal: Yes: Normal Bowel Sounds, Soft. No: Tenderness Edema: No Labs: CBC, BMP 08/17/16 06:10 08/17/16 06:10 Problem List - Problems (1) Acute on chronic diastolic (congestive) heart failure Code(s): I50.33 - ACUTE ON CHRONIC DIASTOLIC (CONGESTIVE) HEART FAILURE (2) Acute on chronic respiratory failure with hypoxia and hypercapnia Code(s): J96.21 - ACUTE AND CHRONIC RESPIRATORY FAILURE WITH HYPOXIA J96.22 - ACUTE AND CHRONIC RESPIRATORY FAILURE WITH HYPERCAPNIA (3) Atrial fibrillation with rapid ventricular response Code(s): I48.91 - UNSPECIFIED ATRIAL FIBRILLATION (4) CHF (congestive heart failure) Code(s): I50.9 - HEART FAILURE, UNSPECIFIED Qualifiers: Qualified Code(s): I50.33 - Acute on chronic diastolic (congestive) heart failure (5) Paroxysmal atrial fibrillation Code(s): I48.0 - PAROXYSMAL ATRIAL FIBRILLATION (6) Acute exacerbation of chronic obstructive pulmonary disease Code(s): J44.1 - CHRONIC OBSTRUCTIVE PULMONARY DISEASE W (ACUTE) EXACERBATION (7) Anemia Code(s): D64.9 - ANEMIA, UNSPECIFIED Qualifiers: Qualified Code(s): D64.9 - Anemia, unspecified (8) COPD (chronic obstructive pulmonary disease) Code(s): J44.9 - CHRONIC OBSTRUCTIVE PULMONARY DISEASE, UNSPECIFIED Qualifiers : Qualified Code(s): J43.2 - Centrilobular emphysema (9) Cardiomyopathy as manifestation of underlying disease Code(s): I43 - CARDIOMYOPATHY IN DISEASES CLASSIFIED ELSEWHERE (10) Coronary artery disease Code(s): I25.10 - ATHSCL HEART DISEASE OF [place] CORONARY ARTERY W/O ANG PCTRS Qualifiers: Qualified Code(s): I25.10 - Atherosclerotic heart disease of [place] coronary artery without angina pectoris (11) Diabetes Code(s): E11.9 - TYPE 2 DIABETES MELLITUS WITHOUT COMPLICATIONS Qualifiers: Qualified Code(s): E11.9 - Type 2 diabetes mellitus without complications (12) Diastolic dysfunction with chronic heart failure Code(s): I50.32 - CHRONIC DIASTOLIC (CONGESTIVE) HEART FAILURE (13) Gastric AV malformation Code(s): Q27.33 - ARTERIOVENOUS MALFORMATION OF DIGESTIVE SYSTEM VESSEL (14) HTN (hypertension) Code(s): I10 - ESSENTIAL (PRIMARY) HYPERTENSION Qualifiers: Qualified Code(s): I10 - Essential (primary) hypertension (15) Hyperlipidemia Code(s): E78.5 - HYPERLIPIDEMIA, UNSPECIFIED Qualifiers: Qualified Code(s): E78.2 - Mixed hyperlipidemia (16) Hyperthyroidism Code(s): E05.90 - THYROTOXICOSIS, UNSP WITHOUT THYROTOXIC CRISIS OR STORM (17) Pneumonia Code(s): J18.9 - PNEUMONIA, UNSPECIFIED ORGANISM Assessment/Plan 1. Acute on chronic hypercapeniec/hypoxemic respiratory failure related to COPD/ emphysema exacerbation and pneumonia 2. Acute on chronic LV diastolic failure 3. Non obstructive CAD, angina pectoris 4. Paroxysmal atrial fibrillation with periods of RVR - recurrence, [id number] score of 7 on NOAC 4. HTN 5. NIDDM 6. Hyperlipidemia 7. Parkinson's disease 8. Hyperthyroidism 9. Anemia 10. History of gastritis - gastric AVM post cautery PLAN: 1. Continue Sotalol 120 mg BID, Eliquis 5 mg BID, Lovaza 2 g BID and Lipitor 10 mg QHS. Continue Cardizem CD 120 mg QD 2. Monitor renal function and electrolytes 3. Empiric antibiotics as per ID, steroids taper, Bronchodilators, O2 and BIPAP 4. Continue Tapazole 5. GI prophylaxis Further plans are to follow. Clarify advanced directives Ronn Grimes MD
--- NOTE | 2016-08-17 11:41 | PN ---
Progress Note, Physician History of Present Illness: Awake , alert Mildly dyspneic on bipap Now with low grade fever, episodes of hypotension, desaturation, WBC elevated CXR shows worsening infiltrate +/- effusion on left - Current Medication List Current Medications: Active Medications Albuterol Sulfate (Ventolin 0.083% Nebulizer Soln -) 1 amp NEB Q4H PRN PRN Reason: SHORT OF BREATH/WHEEZING Last Admin: 08/16/16 17:56 Dose: 1 amp Apixaban (Eliquis -) 5 mg PO BID [facility] OF [facility] Last Admin: 08/17/16 09:35 Dose: 5 mg Atorvastatin Calcium (Lipitor -) 10 mg PO HS [facility] Last Admin: 08/16/16 21:48 Dose: 10 mg Diltiazem HCl (Cardizem Cd -) 120 mg PO DAILY [facility] Last Admin: 08/17/16 09:32 Dose: 120 mg Ceftriaxone Sodium (Rocephin 1gm Ivpb (Pre-Docked)) 50 mls @ 100 mls/hr IVPB DAILY [facility] Last Admin: 08/17/16 09:29 Dose: 100 mls/hr Sodium Chloride (Normal Saline -) 1,000 mls @ 50 mls/hr IV ASDIR ON [facility] Stop: 08/17/16 17:44 Insulin Aspart (Novolog Vial Sliding Scale -) 1 vial SQ ACHS ON [facility] PRN Reason: Protocol Last Admin: 08/17/16 06:30 Dose: 2 units Insulin Detemir (Levemir Vial) 8 units SQ HS [facility] Methimazole (Tapazole -) 15 mg PO TID [facility] Last Admin: 08/17/16 06:29 Dose: 15 mg Methylprednisolone Sodium Succinate (Solu-Medrol -) 40 mg IVPB BID [facility] Last Admin: 08/17/16 09:00 Dose: 40 mg Metoprolol Tartrate (Lopressor Injection -) 5 mg IVPUSH Q4H PRN PRN Reason: HYPERTENSION Last Admin: 08/10/16 17:20 Dose: 5 mg Nortriptyline HCl (Pamelor -) 30 mg PO HS [facility] Last Admin: 08/16/16 22:00 Dose: 30 mg Cankn-2-[id number] Ethyl Esters (Lovaza -) 2 gm PO BID [facility] Last Admin: 08/17/16 09:35 Dose: 2 gm Polyethylene Glycol (Miralax (For Daily Use) -) 17 gm PO DAILY [facility] Last Admin: 08/17/16 09:36 Dose: 17 gm Fluticasone/Salmeterol (Advair 100mcg/50mcg -) 1 puff IH BID [facility] Last Admin: 08/17/16 09:31 Dose: 1 puff Sotalol HCl (Betapace -) 120 mg PO BID [facility] Last Admin: 08/17/16 09:33 Dose: 120 mg - Objective Vital Signs: Vital Signs Temperature 97.7 F 08/17/16 08:02 Pulse Rate 105 H 08/17/16 08:02 Respiratory Rate 22 08/17/16 08:03 Blood Pressure 120/78 08/17/16 08:02 O2 Sat by Pulse Oximetry (%) 92 L 08/17/16 08:03 Constitutional: Yes: No Distress Eyes: Yes: Conjunctiva Clear Cardiovascular: Yes: Regular Rate and Rhythm, S1, S2 Respiratory: Yes: Diminished Gastrointestinal: Yes: Normal Bowel Sounds, Soft, Abdomen, Obese. No: Tenderness Labs: CBC, BMP 08/17/16 06:10 08/17/16 06:10 INR, PTT INR 1.17 (0.82-1.09) H 08/09/16 09:30 Assessment/Plan Pneumococcal pneumonia COPD exacerbation Afib Day # 7 ceftriaxone Worsening respiratory status and CXR Possible worsening infiltrate +/- parapneumonic effusion Pulmonary re-evaluation. Consider repeat imaging to R/O effusion In light of fever, leukocytosis, worsening CXR will D/C ceftriaxone, start zosyn
[2016-08-17] MEDS: PIPERACILLIN/TAZOB 3.375 GM 50 ML IVPB SCH ×2 (14:35→18:43)
--- NOTE | 2016-08-17 15:09 | PN ---
Progress Note (short form) - Note Progress Note: PULMONARY Dependent on BiPAP. No fevers recorded. Last Vital Signs Temp Pulse Resp BP Pulse Ox 97.7 F 98 H 22 122/76 93 L 08/17/16 08:02 08/17/16 13:46 08/17/16 13:46 08/17/16 13:46 08/17/16 10:35 Gen: tachypneic on BiPAP Heart: RRR Lung: distant breath sounds, no wheezes appreciated Abd: soft, nontender Ext: no edema CBC, BMP 08/17/16 06:10 08/17/16 06:10 Active Medications Albuterol Sulfate (Ventolin 0.083% Nebulizer Soln -) 1 amp NEB Q4H PRN PRN Reason: SHORT OF BREATH/WHEEZING Last Admin: 08/16/16 17:56 Dose: 1 amp Apixaban (Eliquis -) 5 mg PO BID [facility] Last Admin: 08/17/16 09:35 Dose: 5 mg Atorvastatin Calcium (Lipitor -) 10 mg PO HS [facility] Last Admin: 08/16/16 21:48 Dose: 10 mg Diltiazem HCl (Cardizem Cd -) 120 mg PO DAILY [facility] Last Admin: 08/17/16 09:32 Dose: 120 mg Sodium Chloride (Normal Saline -) 1,000 mls @ 50 mls/hr IV ASDIR [facility] Stop: 08/17/16 17:44 Last Admin: 08/17/16 09:45 Dose: 50 mls/hr Piperacillin Sod/Tazobactam Sod (Zosyn 3.375gm Ivpb (Pre-Docked)) 50 mls @ 100 mls/hr IVPB Q8H-IV MICHAEL Insulin Aspart (Novolog Vial Sliding Scale -) 1 vial SQ ACHS [facility] PRN Reason: Protocol Last Admin: 08/17/16 11:30 Dose: 4 units Insulin Detemir (Levemir Vial) 8 units SQ HS [facility] Methimazole (Tapazole -) 15 mg PO TID [facility] Last Admin: 08/17/16 06:29 Dose: 15 mg Methylprednisolone Sodium Succinate (Solu-Medrol -) 40 mg IVPB BID [facility] Last Admin: 08/17/16 09:00 Dose: 40 mg Metoprolol Tartrate (Lopressor Injection -) 5 mg IVPUSH Q4H PRN PRN Reason: HYPERTENSION Last Admin: 08/10/16 17:20 Dose: 5 mg Nortriptyline HCl (Pamelor -) 30 mg PO HS [facility] Last Admin: 08/16/16 22:00 Dose: 30 mg Dkofs-3-Ikdp Ethyl Esters (Lovaza -) 2 gm PO BID [facility] Last Admin: 08/17/16 09:35 Dose: 2 gm Polyethylene Glycol (Miralax (For Daily Use) -) 17 gm PO DAILY [facility] Last Admin: 08/17/16 09:36 Dose: 17 gm Fluticasone/Salmeterol (Advair 100mcg/50mcg -) 1 puff IH BID [facility] Last Admin: 08/17/16 09:31 Dose: 1 puff Sotalol HCl (Betapace -) 120 mg PO BID [facility] Last Admin: 08/17/16 09:33 Dose: 120 mg A/P Acute Hypoxic Respiratory Failure Pneumonia UTI Sepsis Atrial Fibrillation with RVR improving Acute on Chronic LV Diastolic Heart Failure likely rate related CAD Acute COPD Exacerbation HTN DM Hypercholesterolemia Hyperthyroidism - continue antibiotics per ID - rate control on sotalol, cardizem, lopressor pushes PRN - BiPAP to assist in work of breathing - taper O2 to keep SpO2 >90% - continue medrol - glucose control - inhaled bronchodilators - monitor urine output, creatinine - PO as tolerated - DVT/GI prophylaxis - continue discussions regarding goals of care Problem List - Problems (1) Acute on chronic respiratory failure with hypoxia and hypercapnia Code(s): J96.21 - ACUTE AND CHRONIC RESPIRATORY FAILURE WITH HYPOXIA J96.22 - ACUTE AND CHRONIC RESPIRATORY FAILURE WITH HYPERCAPNIA (2) Pneumonia Code(s): J18.9 - PNEUMONIA, UNSPECIFIED ORGANISM (3) UTI (urinary tract infection) Code(s): N39.0 - URINARY TRACT INFECTION, SITE NOT SPECIFIED Qualifiers: Qualified Code(s): N39.0 - Urinary tract infection, site not specified (4) Sepsis Code(s): A41.9 - SEPSIS, UNSPECIFIED ORGANISM Qualifiers: Qualified Code(s): A41.9 - Sepsis, unspecified organism (5) Atrial fibrillation with rapid ventricular response Code(s): I48.91 - UNSPECIFIED ATRIAL FIBRILLATION (6) Acute exacerbation of chronic obstructive pulmonary disease Code(s): J44.1 - CHRONIC OBSTRUCTIVE PULMONARY DISEASE W (ACUTE) EXACERBATION (7) Acute on chronic diastolic (congestive) heart failure Code(s): I50.33 - ACUTE ON CHRONIC DIASTOLIC (CONGESTIVE) HEART FAILURE (8) Coronary artery disease Code(s): I25.10 - ATHSCL HEART DISEASE OF [place] CORONARY ARTERY W/O ANG PCTRS Qualifiers: Qualified Code(s): I25.10 - Atherosclerotic heart disease of [place] coronary artery without angina pectoris (9) Diabetes Code(s): E11.9 - TYPE 2 DIABETES MELLITUS WITHOUT COMPLICATIONS Qualifiers: Qualified Code(s): E11.9 - Type 2 diabetes mellitus without complications (10) HTN (hypertension) Code(s): I10 - ESSENTIAL (PRIMARY) HYPERTENSION Qualifiers: Qualified Code(s): I10 - Essential (primary) hypertension (11) Hyperlipidemia Code(s): E78.5 - HYPERLIPIDEMIA, UNSPECIFIED Qualifiers: Qualified Code(s): E78.2 - Mixed hyperlipidemia
--- NOTE | 2016-08-17 15:09 | PN ---
Teaching Attending Note Name of Resident: Deon Starks ATTENDING PHYSICIAN STATEMENT I saw and evaluated the patient. I reviewed the resident's note and discussed the case with the resident. I agree with the resident's findings and plan as documented. SUBJECTIVE: no fever or chills, no ABd pain , no SOB . over night , BP was low and pt was given IVF . OBJECTIVE: NAD , more communicative today . sweaty CV: RRR, no MRG , minimal L jugular vein distention Lungs: CTAB Abd : soft, NT, ND , nL BS Ext: no edema or erythema over LE ASSESSMENT AND PLAN: 86 yr old woman with h/o CAD , Diastolic CHF , HTN, P Afib , and other medical problems who presented with SOB , she was diagnosed with acute COPD exacerbation , in the setting of LLL PNA. 1- LLL CAP strep Pneumonia : worsening Cxray today. - Agree with broadening to zosyn - continue BIPAP as needed. - will repeat CT scan . if significant Pleural effusion , need to drain for analysis to r/o Empyema - code status addressed , DNI . But for further d/w family today regarding DNR 2- Acute copd exa : cont steroids , probably decrease in am Cont Nebs cont Advair. 3- Hypotension : resolved. can give Sotalol and cardizem today. hold ARB for now give IVF at 50 cc /hr x 10 hrs today and reevaluate as pt cont to look volume depleted and dehydrated 4- H/o Diastolic CHF ,echo in not in acute CHF now , she is dehydrated. monitor with fluids 5- P A fib : slightly elevated rate this am( sinus ) . tele reviewed, no major tachy alst night cont sotalol and cardizem . cont eliquis 6- possible mild R hydro on Chest CT: - obtain renal and bladder US . 7- dispo : HLOC
--- NOTE | 2016-08-17 18:12 | HOSP ---
Subjective - Review of Symptoms Events since last encounter: family meeting held with daughter( health care proxy ) , grand daughter and son. Patient condition was explained . Family understands that Mom is sick and can de-compensate at any time . The patient at this time is not able to make decision due to her medical condition affecting her capacity . After discussion , family decided to respect patient wishes when she was healthy and able to decide for her self . Decison is to make her DNR/DNI. family stated they did not understand what those measures meant before and that' s why they chose DNI ( not DNR ) before . NOW , DNI/DNR Physical Examination Vital Signs: Vital Signs Temperature 97.9 F 08/17/16 13:46 Pulse Rate 98 H 08/17/16 13:46 Respiratory Rate 22 08/17/16 13:46 Blood Pressure 122/76 08/17/16 13:46 O2 Sat by Pulse Oximetry (%) 97 08/17/16 14:36 Labs: CBC, BMP 08/17/16 06:10 08/17/16 06:10
[2016-08-17] MEDS ORDERED: PT OWN MED DRAWER 7, Y5N ONE (23:04)
[2016-08-17] MEDS: ATORVASTATIN CA 10 MG TABLET (FP) PO SCH (23:06)
[2016-08-17] MEDS: NORTRIPTYLINE HCL 10 MG CAPSULE PO SCH (23:07)
[2016-08-17] MEDS: INSULIN DETEMIR 100 UNITS/ML MDV SQ SCH (23:08)
[2016-08-18] MEDS: PIPERACILLIN/TAZOB 3.375 GM 50 ML IVPB SCH ×3 (02:45→17:44)
[2016-08-18] MEDS: METHIMAZOLE 5 MG TABLET (FP) PO SCH ×3 (05:47→23:00)
[2016-08-18] MEDS: INSULIN SLIDING SCALE (NOVOLOG) 1 VIAL SQ SCH ×4 (06:20→23:03)
[2016-08-18 07:18] LABS: BASOPHIL 0.1 % (0-2.0); MCH 21.3 pg (25.7-33.7); MCHC 29.9 g/dl (32.0-36.0); MEAN CELL VOLUME 71.4 fl (80-96); MEAN PLT VOLUME 9.4 fl (7.5-11.1); NEUTROPHILS 96.5 % (42.8-82.8); PLATELET COUNT 195 K/MM3 (134-434); RDW 27.8 % (11.6-15.6); WHITE BLOOD COUNT 21.9 K/mm3 (4.0-10.0)
[2016-08-18 08:16] LABS: CALCIUM 8.3 mg/dL (8.5-10.1); CREATININE 0.7 mg/dL (0.55-1.02)
--- NOTE | 2016-08-18 09:06 | PN ---
Progress Note, Physician History of Present Illness: Off bipap for acute hypoxic respiratory failure with worsening left infiltrate and effusion, now on NC. Remains in SR. - Current Medication List Current Medications: Active Medications Albuterol Sulfate (Ventolin 0.083% Nebulizer Soln -) 1 amp NEB Q4H PRN PRN Reason: SHORT OF BREATH/WHEEZING Last Admin: 08/16/16 17:56 Dose: 1 amp Apixaban (Eliquis -) 5 mg PO BID [facility] Last Admin: 08/17/16 23:05 Dose: 5 mg Atorvastatin Calcium (Lipitor -) 10 mg PO HS [facility] Last Admin: 08/17/16 23:06 Dose: 10 mg Diltiazem HCl (Cardizem Cd -) 120 mg PO DAILY [facility] Last Admin: 08/17/16 09:32 Dose: 120 mg Piperacillin Sod/Tazobactam Sod (Zosyn 3.375gm Ivpb (Pre-Docked)) 50 mls @ 100 mls/hr IVPB Q8H-IV [facility] Last Admin: 08/18/16 02:45 Dose: 100 mls/hr Insulin Aspart (Novolog Vial Sliding Scale -) 1 vial SQ ACHS [facility] PRN Reason: Protocol Last Admin: 08/18/16 06:20 Dose: 2 units Insulin Detemir (Levemir Vial) 8 units SQ [facility] Last Admin: 08/17/16 23:08 Dose: 8 units Methimazole (Tapazole -) 15 mg PO TID [facility] Last Admin: 08/18/16 05:47 Dose: 15 mg Methylprednisolone Sodium Succinate (Solu-Medrol -) 40 mg IVPB BID [facility] Last Admin: 08/17/16 23:05 Dose: 40 mg Metoprolol Tartrate (Lopressor Injection -) 5 mg IVPUSH Q4H PRN PRN Reason: HYPERTENSION Last Admin: 08/10/16 17:20 Dose: 5 mg Nortriptyline HCl (Pamelor -) 30 mg PO [facility] Last Admin: 08/17/16 23:07 Dose: 30 mg Bhcyu-8-Szli Ethyl Esters (Lovaza -) 2 gm PO BID [facility] Last Admin: 08/17/16 23:05 Dose: 2 gm Polyethylene Glycol (Miralax (For Daily Use) -) 17 gm PO BID [facility] Last Admin: 08/17/16 23:07 Dose: 17 grams Fluticasone/Salmeterol (Advair 100mcg/50mcg -) 1 puff IH BID [facility] Last Admin: 08/17/16 23:22 Dose: Not Given Sotalol HCl (Betapace -) 120 mg PO BID [facility] Last Admin: 08/17/16 23:06 Dose: 120 mg - Objective Vital Signs: Vital Signs Temperature 97.9 F 08/18/16 06:00 Pulse Rate 70 08/18/16 06:00 Respiratory Rate 18 08/18/16 06:00 Blood Pressure 130/63 08/18/16 06:00 O2 Sat by Pulse Oximetry (%) 95 08/18/16 06:30 Constitutional: Yes: No Distress, Calm Neck: Yes: Supple Cardiovascular: Yes: Regular Rate and Rhythm Respiratory: Yes: Diminished, On Nasal O2 Gastrointestinal: Yes: Soft, Hypoactive Bowel Sounds Edema: No Labs: CBC, BMP 08/18/16 05:35 08/18/16 05:35 INR, PTT INR 1.17 (0.82-1.09) H 08/09/16 09:30 - ....Imaging Chest X-ray: Report Reviewed (Worsening left effusion, infiltrates) EKG: Report Reviewed (Tele: SR) Problem List - Problems (1) Acute on chronic diastolic (congestive) heart failure Code(s): I50.33 - ACUTE ON CHRONIC DIASTOLIC (CONGESTIVE) HEART FAILURE (2) Acute on chronic respiratory failure with hypoxia and hypercapnia Code(s): J96.21 - ACUTE AND CHRONIC RESPIRATORY FAILURE WITH HYPOXIA J96.22 - ACUTE AND CHRONIC RESPIRATORY FAILURE WITH HYPERCAPNIA (3) Atrial fibrillation with rapid ventricular response Code(s): I48.91 - UNSPECIFIED ATRIAL FIBRILLATION (4) Paroxysmal atrial fibrillation Code(s): I48.0 - PAROXYSMAL ATRIAL FIBRILLATION (5) Acute exacerbation of chronic obstructive pulmonary disease Code(s): J44.1 - CHRONIC OBSTRUCTIVE PULMONARY DISEASE W (ACUTE) EXACERBATION (6) Anemia Code(s): D64.9 - ANEMIA, UNSPECIFIED Qualifiers: Qualified Code(s): D64.9 - Anemia, unspecified (7) Coronary artery disease Code(s): I25.10 - ATHSCL HEART DISEASE OF [place] CORONARY ARTERY W/O ANG PCTRS Qualifiers: Qualified Code(s): I25.10 - Atherosclerotic heart disease of [place] coronary artery without angina pectoris (8) Gastric AV malformation Code(s): Q27.33 - ARTERIOVENOUS MALFORMATION OF DIGESTIVE SYSTEM VESSEL (9) HTN (hypertension) Code(s): I10 - ESSENTIAL (PRIMARY) HYPERTENSION Qualifiers: Qualified Code(s): I10 - Essential (primary) hypertension (10) Hyperlipidemia Code(s): E78.5 - HYPERLIPIDEMIA, UNSPECIFIED Qualifiers: Qualified Code(s): E78.2 - Mixed hyperlipidemia (11) Hyperthyroidism Code(s): E05.90 - THYROTOXICOSIS, UNSP WITHOUT THYROTOXIC CRISIS OR STORM Assessment/Plan 1. Acute hypoxemic, hypercapeniec respiratory failure related to COPD/emphysema exacerbation and PNA, UTI, sepsis 2. Paroxysmal atrial fibrillation currently in sinus rhythm [id number] score of 7 on NOAC's 3. Diastolic LV dysfunction with chronic class I-II NYHA classification LV failure, compensated 4. CAD non obstructive CAD angina pectoris 4. HTN 5. NIDDM 6. Hyperlipidemia 7. Parkinson's disease 8. Hyperthyroidism 9. Anemia 10. History of gastritis - gastric AVM post cautery PLAN: 1. Continue Sotalol 120 bid with close monitoring of QTc interval 2. Continue Cardizem CD 120 qd 3. Continue Diovan 80 qd 4. Hold Lasix, judicious hydration as you are 5. Continue Continue A/C with Eliquis 5 bid with caution considering the above noted history of anemia and GI bleed 6. Continue Lovaza 2 bid and Lipitor 10 qhs 7. Bronchodilators and oral steroid taper, bipap and O2 as needed, abx change per ID noted 8. DVT and GI prophylaxis, code status clarified
[2016-08-18] MEDS: SOTALOL HCL 80 MG TABLET (FP) PO SCH ×2 (09:28→22:59)
[2016-08-18] MEDS: OMEGA-3 ACID ETHYL ESTERS (FATTY-ACIDS) 1 GM CAPSULE (FP) PO SCH ×2 (09:28→22:58)
[2016-08-18] MEDS: APIXABAN 5 MG TABLET PO SCH ×2 (09:29→23:02)
[2016-08-18] MEDS: methylPREDNISolone NA SUCC 40 MG/1 ML VIAL IVPB SCH (09:29)
[2016-08-18] MEDS: POLYETHYLENE GLYCOL 3350 119 GM BTL PO SCH ×2 (09:30→23:03)
[2016-08-18] MEDS: FLUTICASONE/SALMETEROL 100 MCG/50 MCG DISKUS IH SCH ×2 (10:03→23:47)
--- NOTE | 2016-08-18 12:06 | PN ---
Progress Note (short form) - Note Progress Note: PULMONARY OOB TO CHAIR/NASAL O2 AFEBRILE/HR 81 120/69 ANICTERIC DIMINISHED BREATH SOUNDS ON LEFT S1S2 BS+ SOFT NO EDEMA LABS/MEDS/IMAGING/NOTES REVIEWED Pneumonia/atelectasis UTI Sepsis Atrial Fibrillation with RVR improving Acute on Chronic LV Diastolic Heart Failure likely rate related CAD Acute COPD Exacerbation HTN DM Hypercholesterolemia Hyperthyroidism - continue antibiotics - Lasix - BiPAP PRN - O2 to keep SpO2 >90% - medrol to continue - glucose control - inhaled bronchodilators - monitor urine output, creatinine - PO as tolerated - DVT/GI prophylaxis - f/u cxr CLOSE MONITORING ON TELE Carmela GREEN MD
--- NOTE | 2016-08-18 12:51 | PN ---
Progress Note, Physician History of Present Illness: OOB in chair Appears more comfortable Breathing non-labored on nasal cannula Denies dyspnea Afebrile with elevated WBC on steroids - Current Medication List Current Medications: Active Medications Albuterol Sulfate (Ventolin 0.083% Nebulizer Soln -) 1 amp NEB Q4H PRN PRN Reason: SHORT OF BREATH/WHEEZING Last Admin: 08/16/16 17:56 Dose: 1 amp Apixaban (Eliquis -) 5 mg PO BID [facility] Last Admin: 08/18/16 09:29 Dose: 5 mg Atorvastatin Calcium (Lipitor -) 10 mg PO [facility] Last Admin: 08/17/16 23:06 Dose: 10 mg Diltiazem HCl (Cardizem Cd -) 120 mg PO DAILY [facility] Last Admin: 08/18/16 09:29 Dose: 120 mg Piperacillin Sod/Tazobactam Sod (Zosyn 3.375gm Ivpb (Pre-Docked)) 50 mls @ 100 mls/hr IVPB Q8H-IV [facility] Last Admin: 08/18/16 09:29 Dose: 100 mls/hr Insulin Aspart (Novolog Vial Sliding Scale -) 1 vial SQ ACHS [facility] PRN Reason: Protocol Last Admin: 08/18/16 12:03 Dose: 6 units Insulin Detemir (Levemir Vial) 8 units SQ [facility] Last Admin: 08/17/16 23:08 Dose: 8 units Methimazole (Tapazole -) 15 mg PO TID [facility] Last Admin: 08/18/16 05:47 Dose: 15 mg Methylprednisolone Sodium Succinate (Solu-Medrol -) 40 mg IVPB BID [facility] Last Admin: 08/18/16 09:29 Dose: 40 mg Metoprolol Tartrate (Lopressor Injection -) 5 mg IVPUSH Q4H PRN PRN Reason: HYPERTENSION Last Admin: 08/10/16 17:20 Dose: 5 mg Nortriptyline HCl (Pamelor -) 30 mg PO [facility] Last Admin: 08/17/16 23:07 Dose: 30 mg Mgewi-9-[id number] Ethyl Esters (Lovaza -) 2 gm PO BID [facility] Last Admin: 08/18/16 09:28 Dose: 2 gm Polyethylene Glycol (Miralax (For Daily Use) -) 17 gm PO BID [facility] Last Admin: 08/18/16 09:30 Dose: 17 grams Fluticasone/Salmeterol (Advair 100mcg/50mcg -) 1 puff IH BID [facility] Last Admin: 08/18/16 10:03 Dose: 1 puff Sotalol HCl (Betapace -) 120 mg PO BID [facility] Last Admin: 08/18/16 09:28 Dose: 120 mg - Objective Vital Signs: Vital Signs Temperature 97.9 F 08/18/16 10:00 Pulse Rate 72 08/18/16 10:00 Respiratory Rate 18 08/18/16 10:00 Blood Pressure 120/69 08/18/16 10:00 O2 Sat by Pulse Oximetry (%) 95 08/18/16 10:00 Constitutional: Yes: No Distress Eyes: Yes: Conjunctiva Clear Cardiovascular: Yes: Regular Rate and Rhythm, S1, S2 Respiratory: Yes: Other (decreased BS L lung field) Gastrointestinal: Yes: Normal Bowel Sounds, Soft. No: Tenderness Edema: Yes Edema: LLE: 1+, RLE: 1+ Labs: CBC, BMP 08/18/16 05:35 08/18/16 05:35 INR, PTT INR 1.17 (0.82-1.09) H 08/09/16 09:30 Assessment/Plan Pneumococcal pneumonia COPD exacerbation Afib Switched to empiric zosyn after worsening respiratory status and CXR Possible worsening infiltrate +/- parapneumonic effusion Pulmonary re-evaluation. Consider repeat imaging to R/O effusion Continue empiric zosyn
[2016-08-18] MEDS ORDERED: LACTULOSE 20 GM/30 ML UDC (FOR ORAL USE ONLY) PO ONE (16:56)
--- NOTE | 2016-08-18 16:59 | PN ---
Physical Exam: SUBJECTIVE: Patient seen and examined no complaints, denies chest pain, sob. answering questions appropriately. OBJECTIVE: Vital Signs Period Temp Pulse Resp BP Sys/Pinedo Pulse Ox Last 24 Hr 97.9 F-98.4 F 67-84 18-20 100-130/55-69 93-97 GENERAL: The patient is awake, alert, and NAD EYES: extraocular movements intact ENT: nares patent, on nasal cannula 4lpm NECK: Trachea midline, full range of motion, supple. LUNGS: quiet on left, coarse on right HEART: sinus, Regular rate and rhythm, S1, S2 ABDOMEN: Soft, nontender, nondistended, normoactive bowel sounds EXTREMITIES: 2+ pulses, warm, well-perfused, no edema. strength 1/5 in UE and LE. NEUROLOGICAL: Normal speech PSYCH: Normal mood, normal affect. SKIN: Warm, dry, no rashes or lesions noted Laboratory Results - last 24 hr 08/17/16 08/17/16 08/18/16 17:20 23:00 05:35 WBC 21.9 H RBC 3.87 Hgb 8.2 L D Hct 27.6 L MCV 71.4 L MCHC 29.9 L RDW 27.8 H Plt Count 195 MPV 9.4 Neutrophils % 96.5 H Lymphocytes % 2.6 L Monocytes % 0.8 L Eosinophils % 0.0 D Basophils % 0.1 Sodium Potassium Chloride Carbon Dioxide Anion Gap BUN Creatinine POC Glucometer 409 180 Random Glucose Calcium 08/18/16 08/18/16 08/18/16 05:35 05:41 11:49 WBC RBC Hgb Hct MCV MCHC RDW Plt Count MPV Neutrophils % Lymphocytes % Monocytes % Eosinophils % Basophils % Sodium 144 Potassium 4.4 Chloride 102 Carbon Dioxide 34 H Anion Gap 8 BUN 51 H Creatinine 0.7 POC Glucometer 194 255 Random Glucose 167 H Calcium 8.3 L Active Medications Generic Name Dose Route Start Last Admin Trade Name Freq PRN Reason Stop Dose Admin Albuterol Sulfate 1 amp 08/10/16 20:31 08/16/16 17:56 Ventolin 0.083% Nebulizer Soln - NEB 1 amp Q4H PRN Administration SHORT OF BREATH/WHEEZING Apixaban 5 mg 08/09/16 22:00 08/18/16 09:29 Eliquis - PO 5 mg BID MICHAEL Administration Atorvastatin Calcium 10 mg 08/09/16 22:00 08/17/16 23:06 Lipitor - PO 10 mg HS MICHAEL Administration Diltiazem HCl 120 mg 08/16/16 18:20 08/18/16 09:29 Cardizem Cd - PO 120 mg DAILY MICHAEL Administration Piperacillin Sod/Tazobactam Sod 50 mls @ 100 mls/hr 08/17/16 13:35 08/18/16 09: 29 Zosyn 3.375gm Ivpb (Pre-Docked) IVPB 100 mls/hr Q8H-IV MICHAEL Administration Insulin Aspart 1 vial 08/13/16 11:00 08/18/16 12:03 Novolog Vial Sliding Scale - SQ 6 units ACHS MICHAEL Administration Protocol Insulin Detemir 8 units 08/17/16 22:00 08/17/16 23:08 Levemir Vial SQ 8 units HS MICHAEL Administration Methimazole 15 mg 08/09/16 22:00 08/18/16 16:19 Tapazole - PO 15 mg TID MICHAEL Administration Methylprednisolone Sodium Succinate 40 mg 08/19/16 10:00 Solu-Medrol - IVPB DAILY MICHAEL Metoprolol Tartrate 5 mg 08/09/16 13:04 08/10/16 17:20 Lopressor Injection - IVPUSH 5 mg Q4H PRN Administration HYPERTENSION Nortriptyline HCl 30 mg 08/09/16 22:00 08/17/16 23:07 Pamelor - PO 30 mg HS MICHAEL Administration Aqvtl-8-Mljz Ethyl Esters 2 gm 08/09/16 22:00 08/18/16 09:28 Lovaza - PO 2 gm BID MICHAEL Administration Polyethylene Glycol 17 gm 08/17/16 22:00 08/18/16 09:30 Miralax (For Daily Use) - PO 17 grams BID MICHAEL Administration Fluticasone/Salmeterol 1 puff 08/16/16 10:00 08/18/16 10:03 Advair 100mcg/50mcg - IH 1 puff BID MICHAEL Administration Sotalol HCl 120 mg 08/16/16 18:20 08/18/16 09:28 Betapace - PO 120 mg BID MICHAEL Administration ASSESSMENT/PLAN: 86 yr old woman with multiple co-morbidities BIBEMS from [facility] for difficulty breathing, was found to be in rapid Afib in the ED admitted for sepsis likely from pna, rapid Afib, and hypoxia/respiratory distress. #Sepsis secondary to strep pneumo(pos urine), addition of zosyn given worsening of chest xray. - left pleural effusion suspicion for underlying empyema, chest ct w/o contrast pending read for further evaluation, may require drainage - leucocytosis improved, trend down, will repeat tomorrow to continue monitoring given recent cxy worsening and change in abx. - zosyn 3.375gm q8hr --start 08/17 - rocephin 1gm iv daily --start 08/10 - stopped 08/17 #Hypotension - improved, BP range 100-130/55-69 - gentle hydration given diastolic CHF, reasses to avoid fluid overload prior to additional fluids. - hold antihypertensives if BP systolic <100 #Respiratory distress/hypoxia, acute exacerbation overnight. patient is DNR/ DNI. will monitor closely. - tolerated OOB and off Bipap to nasal cannula today - duonebs q4 prn - prednisone 40mg QD - Maintain HOB >30 to reduce aspiration risk and maintain airway and respiration , she does not tolerate laying flat. #constipation - added lactulose as patient has not had a bowel movement since 08/11 according to chart - miralax BID #Afib, persistent - improving, rate controlled. in sinus rhythm today, continue BP meds as pressure is improved - sotalol 120mg po bid - cardizem 30mg po TID - abixapan 5mg po bid - eliquis 5mg po bid #DM - uncontrolled - levemir 8u subq HS - novolog sliding scale - BGM ACHS #HTN/CHF - metoprolol tart 5mg IVPush q4h prn - diovan 80m g po daily - hold arb given recent dehydration #CAD - atorvastatin 10mg HS po - lovaza 2gm po BID #Hyperthyroidism -methiazole 15mg po TID #deconditioning - PT eval 08/15, unable to ambulate as pt is deconditioned. #Flat affect - will continue to assess mood - nortryptiline 30mg po daily #Diet: diabetic/low sodium #DVT prophylaxis - on anticoagulation, eliquis code status: DNR/DNI Visit type - Emergency Visit Emergency Visit: No - New Patient This patient is new to me today: No - Critical Care Critical Care patient: No - Discharge Referral Referred to [facility] No
--- NOTE | 2016-08-18 17:14 | PN ---
Teaching Attending Note Name of Resident: Deon Starks ATTENDING PHYSICIAN STATEMENT I saw and evaluated the patient. I reviewed the resident's note and discussed the case with the resident. I agree with the resident's findings and plan as documented. SUBJECTIVE: no fever or chills . no CP or SOB . per daughter she looks better OBJECTIVE: NAD ,awake , communicative CV: RRR, no MRG Lungs: decreased breath sounds at L side Abd : soft, NT, ND , nL BS Ext: no edema or erythema over LE ASSESSMENT AND PLAN: 86 yr old woman with h/o CAD , Diastolic CHF , HTN, P Afib , and other medical problems who presented with SOB , she was diagnosed with acute COPD exacerbation , in the setting of LLL PNA. 1- LLL CAP strep Pneumonia with worsening on cxray. Clinically improved today - cont zosyn - continue BIPAP as needed. - repeat Ct scan . if significant Pleural effusion , need to drain for analysis to r/o Empyema 2- Acute copd exa : decrease steroids Cont Nebs cont Advair. 3- Hypotension : resolved. cont Sotalol and cardizem cont to hold ARB for now hydrated her yesterday. will hold off further IVF and monitor today 4- H/o Diastolic CHF ,echo in not in acute CHF now , she is dehydrated. 5- P A fib : cont sotalol and cardizem . cont eliquis 6- possible mild R hydro on Chest CT: - renal and bladder US pending 7- dispo : HLOC DNR/DNI per family meeting yesterday .
[2016-08-18] MEDS ORDERED: INSULIN (NOVOLOG) ASPART 100 UNITS/ML 10ML VIAL ONE (17:34)
[2016-08-18] MEDS ORDERED: PIPERACILLIN/TAZOB 3.375 GM 50 ML IVPB ONE (17:35)
[2016-08-18] MEDS: ATORVASTATIN CA 10 MG TABLET (FP) PO SCH (22:59)
[2016-08-18] MEDS: NORTRIPTYLINE HCL 10 MG CAPSULE PO SCH (23:00)
[2016-08-18] MEDS: INSULIN DETEMIR 100 UNITS/ML MDV SQ SCH (23:02)
[2016-08-19] MEDS: PIPERACILLIN/TAZOB 3.375 GM 50 ML IVPB SCH ×3 (02:29→17:48)
[2016-08-19] MEDS: METHIMAZOLE 5 MG TABLET (FP) PO SCH ×3 (06:37→22:29)
[2016-08-19] MEDS: INSULIN SLIDING SCALE (NOVOLOG) 1 VIAL SQ SCH ×4 (06:38→22:28)
[2016-08-19 06:55] LABS: MCH 21.1 pg (25.7-33.7); MCHC 29.6 g/dl (32.0-36.0); MEAN CELL VOLUME 71.4 fl (80-96); MEAN PLT VOLUME 9.8 fl (7.5-11.1); PLATELET COUNT 255 K/MM3 (134-434); RDW 27.6 % (11.6-15.6); WHITE BLOOD COUNT 19.5 K/mm3 (4.0-10.0)
[2016-08-19 07:49] LABS: CALCIUM 8.8 mg/dL (8.5-10.1); CREATININE 0.7 mg/dL (0.55-1.02)
--- NOTE | 2016-08-19 08:41 | PN ---
Physical Exam: SUBJECTIVE: Patient seen and examined Feels okay. denies chest pain, shortness of breath, headache, abdominal pain. OBJECTIVE: Vital Signs Period Temp Pulse Resp BP Sys/Pinedo Pulse Ox Last 24 Hr 97.9 F-98.7 F 64-72 18-20 104-120/49-69 95-97 GENERAL: The patient is awake, alert, and NAD EYES: extraocular movements intact ENT: nares patent, on nasal cannula 4lpm NECK: Trachea midline, full range of motion, supple. LUNGS: quiet on left, clear on right. no wheezing, no crackles. HEART: sinus, Regular rate and rhythm, S1, S2 ABDOMEN: Soft, nontender, nondistended, normoactive bowel sounds EXTREMITIES: 2+ pulses, warm, well-perfused, no edema. strength 3/5 in UE and 2/ 5 in LE NEUROLOGICAL: Normal speech. PSYCH: Normal mood, normal affect. oriented to person, place time. was able to name, children, grandchildren, smiled during conversation. SKIN: Warm, dry. skin breakdown at sacrum with demuted skin, no pus, no surrounding erythema. Laboratory Results - last 24 hr 08/17/16 08/18/16 08/18/16 17:20 11:49 17:03 WBC RBC Hgb Hct MCV MCHC RDW Plt Count MPV Sodium Potassium Chloride Carbon Dioxide Anion Gap BUN Creatinine POC Glucometer 409 255 206 Random Glucose Calcium 08/18/16 08/19/16 08/19/16 22:19 05:35 05:35 WBC 19.5 H RBC 3.94 Hgb 8.3 L Hct 28.2 L MCV 71.4 L MCHC 29.6 L RDW 27.6 H Plt Count 255 D MPV 9.8 Sodium 146 H Potassium 4.0 Chloride 102 Carbon Dioxide 36 H Anion Gap 8 BUN 46 H Creatinine 0.7 POC Glucometer 216 Random Glucose 84 D Calcium 8.8 08/19/16 06:33 WBC RBC Hgb Hct MCV MCHC RDW Plt Count MPV Sodium Potassium Chloride Carbon Dioxide Anion Gap BUN Creatinine POC Glucometer 96 Random Glucose Calcium Active Medications Generic Name Dose Route Start Last Admin Trade Name Freq PRN Reason Stop Dose Admin Albuterol Sulfate 1 amp 08/10/16 20:31 08/16/16 17:56 Ventolin 0.083% Nebulizer Soln - NEB 1 amp Q4H PRN Administration SHORT OF BREATH/WHEEZING Apixaban 5 mg 08/09/16 22:00 08/18/16 23:02 Eliquis - PO 5 mg BID MICHAEL Administration Atorvastatin Calcium 10 mg 08/09/16 22:00 08/18/16 22:59 Lipitor - PO 10 mg HS MICHAEL Administration Diltiazem HCl 120 mg 08/16/16 18:20 08/18/16 09:29 Cardizem Cd - PO 120 mg DAILY MICHAEL Administration Piperacillin Sod/Tazobactam Sod 50 mls @ 100 mls/hr 08/17/16 13:35 08/19/16 02: 29 Zosyn 3.375gm Ivpb (Pre-Docked) IVPB 100 mls/hr Q8H-IV MICHAEL Administration Insulin Aspart 1 vial 08/13/16 11:00 08/19/16 06:38 Novolog Vial Sliding Scale - SQ Not Given ACHS [facility] Protocol Insulin Detemir 8 units 08/17/16 22:00 08/18/16 23:02 Levemir Vial SQ 8 units HS MICHAEL Administration Methimazole 15 mg 08/09/16 22:00 08/19/16 06:37 Tapazole - PO 15 mg TID MICHAEL Administration Methylprednisolone Sodium Succinate 40 mg 08/19/16 10:00 Solu-Medrol - IVPB DAILY MICHAEL Metoprolol Tartrate 5 mg 08/09/16 13:04 08/10/16 17:20 Lopressor Injection - IVPUSH 5 mg Q4H PRN Administration HYPERTENSION Nortriptyline HCl 30 mg 08/09/16 22:00 08/18/16 23:00 Pamelor - PO 30 mg HS MICHAEL Administration Evlgl-1-Btng Ethyl Esters 2 gm 08/09/16 22:00 08/18/16 22:58 Lovaza - PO 2 gm BID MICHAEL Administration Polyethylene Glycol 17 gm 08/17/16 22:00 08/18/16 23:03 Miralax (For Daily Use) - PO 17 grams BID MICHAEL Administration Fluticasone/Salmeterol 1 puff 08/16/16 10:00 08/18/16 23:47 Advair 100mcg/50mcg - IH 1 puff BID MICHAEL Administration Sotalol HCl 120 mg 08/16/16 18:20 08/18/16 22:59 Betapace - PO 120 mg BID MICHAEL Administration ASSESSMENT/PLAN: 86 yr old woman with multiple co-morbidities BIBEMS from [facility] for difficulty breathing, was found to be in rapid Afib in the ED admitted for sepsis likely from pna, rapid Afib, and hypoxia/respiratory distress. #Hydronephrosis - manning placed today, 1600cc drained, bladder scan showing retention. - u/a with blood, ucx pending #Pneumonia (strep positive) - leucocytosis improved, - zosyn 3.375gm q8hr --start 08/17 - rocephin 1gm iv daily --start 08/10 - stopped 08/17 #constipation - as patient has not had a bowel movement since 08/11 according to chart - miralax BID daily, 2 doses of lactulose, dulcolax suppository #Respiratory distress/hypoxia, - Improved - nasal cannula 4lpm - duonebs q4 prn - prednisone 40mg QD - Maintain HOB >30 to reduce aspiration risk and maintain airway and respiration , she does not tolerate laying flat. #Afib, persistent - improving, rate controlled. in sinus rhythm today, continue BP meds as pressure is improved - sotalol 120mg po bid - cardizem 30mg po TID - abixapan 5mg po bid - eliquis 5mg po bid #DM - uncontrolled - levemir 8u subq HS - novolog sliding scale - BGM ACHS #HTN/CHF - metoprolol tart 5mg IVPush q4h prn - diovan 80m g po daily - hold arb given recent dehydration #CAD - atorvastatin 10mg HS po - lovaza 2gm po BID #Hyperthyroidism -methiazole 15mg po TID #deconditioning - PT eval 08/15, unable to ambulate as pt is deconditioned. #Flat affect - will continue to assess mood - nortryptiline 30mg po daily #Diet: diabetic/low sodium #DVT prophylaxis - on anticoagulation, eliquis code status: DNR/DNI Visit type - Emergency Visit Emergency Visit: No - New Patient This patient is new to me today: No - Critical Care Critical Care patient: No - Discharge Referral Referred to [facility] Med P.C.: No
--- NOTE | 2016-08-19 09:28 | PN ---
Progress Note (short form) - Note Progress Note: Chief Complaint: Events noted, notes reviewed, complains of persistent dyspnea but improving, denies any chest pain, sinus rhythm is noted History of Present Illness: Seen and examined on telemetry. Events noted, notes reviewed, complains of persistent dyspnea but improving, denies any chest pain, sinus rhythm is noted Echocardiography revealed normal LV systolic dysfunction, mild MR, mild to moderate TR, and moderate degree of pulmonary HTN RVSP of 49 mmHg - Current Medication List Current Medications Albuterol Sulfate (Ventolin 0.083% Nebulizer Soln -) 1 amp NEB Q4H PRN PRN Reason: SHORT OF BREATH/WHEEZING Last Admin: 08/16/16 17:56 Dose: 1 amp Apixaban (Eliquis -) 5 mg PO BID [facility] Last Admin: 08/18/16 23:02 Dose: 5 mg Atorvastatin Calcium (Lipitor -) 10 mg PO HS [facility] Last Admin: 08/18/16 22:59 Dose: 10 mg Diltiazem HCl (Cardizem Cd -) 120 mg PO DAILY [facility] Last Admin: 08/18/16 09:29 Dose: 120 mg Piperacillin Sod/Tazobactam Sod (Zosyn 3.375gm Ivpb (Pre-Docked)) 50 mls @ 100 mls/hr IVPB Q8H-IV [facility] Last Admin: 08/19/16 02:29 Dose: 100 mls/hr Insulin Aspart (Novolog Vial Sliding Scale -) 1 vial SQ ACHS MICHAEL PRN Reason: Protocol Last Admin: 08/19/16 06:38 Dose: Not Given Insulin Detemir (Levemir Vial) 8 units SQ HS [facility] Last Admin: 08/18/16 23:02 Dose: 8 units Methimazole (Tapazole -) 15 mg PO TID [facility] Last Admin: 08/19/16 06:37 Dose: 15 mg Methylprednisolone Sodium Succinate (Solu-Medrol -) 40 mg IVPB DAILY [facility] Metoprolol Tartrate (Lopressor Injection -) 5 mg IVPUSH Q4H PRN PRN Reason: HYPERTENSION Last Admin: 08/10/16 17:20 Dose: 5 mg Nortriptyline HCl (Pamelor -) 30 mg PO HS [facility] Last Admin: 08/18/16 23:00 Dose: 30 mg Rotcs-4-Njcb Ethyl Esters (Lovaza -) 2 gm PO BID [facility] Last Admin: 08/18/16 22:58 Dose: 2 gm Polyethylene Glycol (Miralax (For Daily Use) -) 17 gm PO BID [facility] Last Admin: 08/18/16 23:03 Dose: 17 grams Fluticasone/Salmeterol (Advair 100mcg/50mcg -) 1 puff IH BID [facility] Last Admin: 08/18/16 23:47 Dose: 1 puff Sotalol HCl (Betapace -) 120 mg PO BID [facility] Last Admin: 08/18/16 22:59 Dose: 120 mg Review of Systems Constitutional: denies: chills, fever Cardiovascular: As noted above Respiratory: reports: cough Gastrointestinal: denies: nausea, vomiting, diarrhea, constipation or abdominal pain Genitourinary: No symptoms reported Musculoskeletal: No symptoms reported - Objective Vital Signs: Last Vital Signs Temp Pulse Resp BP Pulse Ox 98.7 F 70 18 106/64 97 08/19/16 05:15 08/19/16 05:15 08/19/16 05:15 08/19/16 05:15 08/18/16 21:28 Neck: Supple Negative JVD No Bruit Cardiovascular: S1 S2 Regular Rate and Rhythm Respiratory: Scattered Rhonchi Bilaterally with Diminished Breath Sounds at the Bases Gastrointestinal: Soft Benign Normal Bowel Sounds Edema: No Labs: CBC, BMP 08/19/16 05:35 08/19/16 05:35 Assessment/Plan ASSESSMENT: 1. Hypercapeniec respiratory failure related to COPD/emphysema exacerbation, resolving 2. Paroxysmal atrial fibrillation currently in sinus rhythm [id number] score of 7 on NOAC's 3. Diastolic LV dysfunction with chronic class I-II NYHA classification LV failure, compensated 4. CAD non obstructive CAD angina pectoris 4. HTN 5. NIDDM 6. Hyperlipidemia 7. Parkinson's disease 8. Hyperthyroidism 9. History of gastritis - gastric AVM post cautery 10. Anemia 11. Pre-renal azotemia and Hypernetremia 12. Hydronephrosis, etiology to be determined PLAN: 1. Continue Sotalol at the current dosage with close monitoring of QTc interval 2. Continue Cardizem CD 3. Currently off of Diovan and Lasix therapies, to be resumed once pre-renal azotemia and Hypernetremia, resolves 4. Continue A/C with Eliquis with caution considering the above noted history of anemia and GI bleed 5. Bronchodilators and steroids as per primary team 6. evaluation of hydronephrosis 7. Monitor CBC and transfuse as needed to maintain Hg equal or > 8.0 Bernie Sharif MD
[2016-08-19] MEDS: FLUTICASONE/SALMETEROL 100 MCG/50 MCG DISKUS IH SCH ×2 (10:20→22:26)
[2016-08-19] MEDS ORDERED: PIPERACILLIN/TAZOB 3.375 GM 50 ML IVPB ONE ×2 (10:26→17:46)
[2016-08-19] MEDS: POLYETHYLENE GLYCOL 3350 119 GM BTL PO SCH ×2 (10:28→22:28)
[2016-08-19] MEDS: methylPREDNISolone NA SUCC 40 MG/1 ML VIAL IVPB SCH (10:28)
--- NOTE | 2016-08-19 11:35 | PN ---
Progress Note (short form) - Note Progress Note: NAD no respiratory distress constipation Vital Signs Period Temp Pulse Resp BP Sys/Pinedo Pulse Ox Last 24 Hr 98.2 F-98.7 F 64-70 18-20 104-120/49-64 95-97 cor-rrr lungs decreased bs at bases abd firm, distended, ?palpable bladder ext no edema CBC, BMP 08/19/16 05:35 08/19/16 05:35 ct chest- increased consolidation LLL, increasing bilat hydro Microbiology 08/10/16 12:15 Nasopharyngeal Swab Respiratory Virus Panel - Preliminary 08/09/16 09:30 Blood - Peripheral Venous Blood Culture - Final NO GROWTH AFTER 5 DAYS INCUBATION 08/09/16 08:30 Blood - Peripheral Venous Blood Culture - Final NO GROWTH AFTER 5 DAYS INCUBATION 08/10/16 12:16 Urine For Antigen Detection Legionella Antigen - Final 08/10/16 12:16 Urine For Antigen Detection Streptococcus pneumoniae Antigen (M - Final 08/10/16 12:15 Nasopharyngeal Swab Influenza Types A,B Antigen (MATEUS) - Final 08/10/16 12:15 Nasopharyngeal Swab - Final 08/09/16 09:48 Urine - Urine - Catheterized Urine Culture - Final NO GROWTH OBTAINED Current Medications Albuterol Sulfate (Ventolin 0.083% Nebulizer Soln -) 1 amp NEB Q4H PRN PRN Reason: SHORT OF BREATH/WHEEZING Last Admin: 08/16/16 17:56 Dose: 1 amp Apixaban (Eliquis -) 5 mg PO BID [facility] Last Admin: 08/18/16 23:02 Dose: 5 mg Atorvastatin Calcium (Lipitor -) 10 mg PO HS [facility] Last Admin: 08/18/16 22:59 Dose: 10 mg Diltiazem HCl (Cardizem Cd -) 120 mg PO DAILY [facility] Last Admin: 08/18/16 09:29 Dose: 120 mg Piperacillin Sod/Tazobactam Sod (Zosyn 3.375gm Ivpb (Pre-Docked)) 50 mls @ 100 mls/hr IVPB Q8H-IV MICHAEL Last Admin: 08/19/16 10:27 Dose: 100 mls/hr Insulin Aspart (Novolog Vial Sliding Scale -) 1 vial SQ ACHS MICHAEL PRN Reason: Protocol Last Admin: 08/19/16 06:38 Dose: Not Given Insulin Detemir (Levemir Vial) 8 units SQ HS [facility] Last Admin: 08/18/16 23:02 Dose: 8 units Methimazole (Tapazole -) 15 mg PO TID [facility] Last Admin: 08/19/16 06:37 Dose: 15 mg Methylprednisolone Sodium Succinate (Solu-Medrol -) 40 mg IVPB DAILY [facility] Last Admin: 08/19/16 10:28 Dose: 40 mg Metoprolol Tartrate (Lopressor Injection -) 5 mg IVPUSH Q4H PRN PRN Reason: HYPERTENSION Last Admin: 08/10/16 17:20 Dose: 5 mg Nortriptyline HCl (Pamelor -) 30 mg PO HS [facility] Last Admin: 08/18/16 23:00 Dose: 30 mg Lnabt-1-Qhja Ethyl Esters (Lovaza -) 2 gm PO BID [facility] Last Admin: 08/18/16 22:58 Dose: 2 gm Polyethylene Glycol (Miralax (For Daily Use) -) 17 gm PO BID [facility] Last Admin: 08/19/16 10:28 Dose: 17 grams Fluticasone/Salmeterol (Advair 100mcg/50mcg -) 1 puff IH BID [facility] Last Admin: 08/19/16 10:20 Dose: 1 puff Sotalol HCl (Betapace -) 120 mg PO BID [facility] Last Admin: 08/18/16 22:59 Dose: 120 mg a/p pneumonia- zosyn day #2, to continue leukocytosis may partially be steroids abdominal distention- check bladder scan r/o urinary retention constipation copd afib
[2016-08-19] MEDS: SOTALOL HCL 80 MG TABLET (FP) PO SCH ×2 (12:19→22:27)
[2016-08-19] MEDS: APIXABAN 5 MG TABLET PO SCH ×2 (12:19→22:27)
[2016-08-19] MEDS: OMEGA-3 ACID ETHYL ESTERS (FATTY-ACIDS) 1 GM CAPSULE (FP) PO SCH ×2 (12:20→22:28)
[2016-08-19 12:47] LABS: URINE APPEARANCE SLCLOUDY; URINE BILIRUBIN NEGATIVE (NEGATIVE); URINE COLOR YELLOW; URINE GLUCOSE (UA) NEGATIVE (NEGATIVE); URINE KETONE NEGATIVE (NEGATIVE); URINE LEUK ESTERASE NEGATIVE (NEGATIVE); URINE NITRITE NEGATIVE (NEGATIVE); URINE PROTEIN NEGATIVE (NEGATIVE); URINE UROBILINOGEN NEGATIVE E.U./dl (0.2-1.0)
[2016-08-19 12:53] LABS: URINE BLOOD 3+ (NEGATIVE)
[2016-08-19 12:56] LABS: URINE BACTERIA MODERATE /hpf (NONE SEEN); URINE MUCUS RARE; URINE RBC 213 /hpf (0-3); URINE WBC 10 /hpf (3-5); YEAST MANY
[2016-08-19] MEDS ORDERED: LACTULOSE 20 GM/30 ML UDC (FOR RECTAL USE ONLY) PR ONE (13:00)
[2016-08-19] MEDS ORDERED: BISACODYL 10 MG SUPP.RECT PR ONE (13:48)
--- NOTE | 2016-08-19 13:51 | PN ---
Teaching Attending Note Name of Resident: Deon Starks ATTENDING PHYSICIAN STATEMENT I saw and evaluated the patient. I reviewed the resident's note and discussed the case with the resident. I agree with the resident's findings and plan as documented. SUBJECTIVE: no fever or chills, no abd pain , no BM for few days. denies any SOB. a no events overnight per RN OBJECTIVE: NAD ,awake , communicative CV: RRR, no MRG Lungs: decreased breath sounds at L side Abd : soft, NT, ND , nL BS Ext: no edema or erythema over LE Skin : broken blisters on sacral and gluteal area b/l with no surrounding erythema and no purulent discharge ASSESSMENT AND PLAN: 86 yr old woman with h/o CAD , Diastolic CHF , HTN, P Afib , and other medical problems who presented with SOB , she was diagnosed with acute COPD exacerbation , in the setting of LLL PNA. 1- LLL CAP : improving - cont zosyn - now on 3 L of NC, continue BIPAP as needed. - Repeat CT scan showed worsening infiltrate and pleural effusion. Will d/w Dr. Huddleston , the need to perform thoracocentesis as the patient is clinically improving 2- Acute Copd exa : cont steroid taper ( 40 daily ) Cont Nebs cont Advair. 3- Hypotension : resolved. cont Sotalol and cardizem cont to hold ARB and lasix for now 4- H/o Diastolic CHF ,echo in not in acute CHF now. will resume lasix when signs of dehydration resolve encourage po hydration for now 5- P A fib : cont sotalol and cardizem . cont eliquis 6- R hydronephrosis . US showed severe hydronephrosis , L renal atrophy . - will get post void bladder scan , to r/o retention and possibly vesico- ureteral reflux. in that case will need manning. - if bladder scan nL, will need CT of ABd , ,to R/O external compression or even internal obstruction . 7- constipation : miralax and lactulose . can give suppository 8- dispo : HLOC DNR/DNI
--- NOTE | 2016-08-19 14:52 | PN ---
Progress Note (short form) - Note Progress Note: PULMONARY OOB TO CHAIR/NASAL O2 AFEBRILE/VSS ANICTERIC DIMINISHED BREATH SOUNDS ON LEFT S1S2 BS+ SOFT NO EDEMA LABS/MEDS/IMAGING/NOTES REVIEWED CT CHEST NOTED Pneumonia/atelectasis UTI Sepsis Atrial Fibrillation with RVR improving Acute on Chronic LV Diastolic Heart Failure likely rate related CAD Acute COPD Exacerbation HTN DM Hypercholesterolemia Hyperthyroidism - continue antibiotics - Lasix - BiPAP PRN - O2 to keep SpO2 >90% - medrol to continue - glucose control - inhaled bronchodilators - monitor urine output, creatinine - PO as tolerated - DVT/GI prophylaxis CLOSE MONITORING ON TELE Carmela GREEN MD
[2016-08-19] MEDS ORDERED: PT OWN MED DRAWER 7, Y5N ONE (22:17)
[2016-08-19] MEDS: ATORVASTATIN CA 10 MG TABLET (FP) PO SCH (22:27)
[2016-08-19] MEDS: NORTRIPTYLINE HCL 10 MG CAPSULE PO SCH (22:29)
[2016-08-19] MEDS: INSULIN DETEMIR 100 UNITS/ML MDV SQ SCH (22:31)
[2016-08-20] MEDS: PIPERACILLIN/TAZOB 3.375 GM 50 ML IVPB SCH ×3 (02:37→17:37)
[2016-08-20] MEDS: INSULIN SLIDING SCALE (NOVOLOG) 1 VIAL SQ SCH ×4 (06:29→22:26)
[2016-08-20] MEDS: METHIMAZOLE 5 MG TABLET (FP) PO SCH ×3 (06:30→22:17)
[2016-08-20 09:01] LABS: CALCIUM 8.5 mg/dL (8.5-10.1)
[2016-08-20 09:03] LABS: CREATININE 0.6 mg/dL (0.55-1.02)
[2016-08-20 09:09] LABS: BASOPHIL 0.2 % (0-2.0); EOSINOPHIL 0.1 % (0-4.5); MCH 20.9 pg (25.7-33.7); MEAN CELL VOLUME 72.1 fl (80-96); MEAN PLT VOLUME 8.8 fl (7.5-11.1); NEUTROPHILS 90.1 % (42.8-82.8); PLATELET COUNT 234 K/MM3 (134-434); RDW 27.5 % (11.6-15.6); WHITE BLOOD COUNT 16.5 K/mm3 (4.0-10.0)
[2016-08-20] MEDS: APIXABAN 5 MG TABLET PO SCH (09:21)
[2016-08-20] MEDS: SOTALOL HCL 80 MG TABLET (FP) PO SCH ×3 (09:21→22:10)
[2016-08-20] MEDS: FLUTICASONE/SALMETEROL 100 MCG/50 MCG DISKUS IH SCH ×2 (09:21→22:15)
[2016-08-20] MEDS: methylPREDNISolone NA SUCC 40 MG/1 ML VIAL IVPB SCH (09:22)
[2016-08-20] MEDS: POLYETHYLENE GLYCOL 3350 119 GM BTL PO SCH ×2 (09:22→22:16)
[2016-08-20] MEDS: OMEGA-3 ACID ETHYL ESTERS (FATTY-ACIDS) 1 GM CAPSULE (FP) PO SCH ×2 (09:22→22:15)
--- NOTE | 2016-08-20 09:40 | PN ---
Progress Note (short form) - Note Progress Note: Chief Complaint: Events noted, notes reviewed, complains of persistent dyspnea, denies any chest pain, sinus rhythm is maintained History of Present Illness: Seen and examined on telemetry. Events noted, notes reviewed, complains of persistent dyspnea, denies any chest pain, sinus rhythm is maintained Echocardiography revealed normal LV systolic dysfunction, mild MR, mild to moderate TR, and moderate degree of pulmonary HTN RVSP of 49 mmHg - Current Medication List Current Medications Albuterol Sulfate (Ventolin 0.083% Nebulizer Soln -) 1 amp NEB Q4H PRN PRN Reason: SHORT OF BREATH/WHEEZING Last Admin: 08/16/16 17:56 Dose: 1 amp Apixaban (Eliquis -) 5 mg PO BID [facility] Last Admin: 08/20/16 09:21 Dose: 5 mg Atorvastatin Calcium (Lipitor -) 10 mg PO HS [facility] Last Admin: 08/19/16 22:27 Dose: 10 mg Diltiazem HCl (Cardizem Cd -) 120 mg PO DAILY [facility] Last Admin: 08/20/16 09:22 Dose: Not Given Piperacillin Sod/Tazobactam Sod (Zosyn 3.375gm Ivpb (Pre-Docked)) 50 mls @ 100 mls/hr IVPB Q8H-IV [facility] Last Admin: 08/20/16 09:22 Dose: 100 mls/hr Insulin Aspart (Novolog Vial Sliding Scale -) 1 vial SQ ACHS [facility] PRN Reason: Protocol Last Admin: 08/20/16 06:29 Dose: 2 units Insulin Detemir (Levemir Vial) 8 units SQ HS [facility] Last Admin: 08/19/16 22:31 Dose: 8 units Methimazole (Tapazole -) 15 mg PO TID [facility] Last Admin: 08/20/16 06:30 Dose: 15 mg Methylprednisolone Sodium Succinate (Solu-Medrol -) 40 mg IVPB DAILY [facility] Last Admin: 08/20/16 09:22 Dose: 40 mg Metoprolol Tartrate (Lopressor Injection -) 5 mg IVPUSH Q4H PRN PRN Reason: HYPERTENSION Last Admin: 08/10/16 17:20 Dose: 5 mg Nortriptyline HCl (Pamelor -) 30 mg PO HS [facility] Last Admin: 08/19/16 22:29 Dose: 30 mg Qlsxl-6-Nbws Ethyl Esters (Lovaza -) 2 gm PO BID [facility] Last Admin: 08/20/16 09:22 Dose: 2 gm Polyethylene Glycol (Miralax (For Daily Use) -) 17 gm PO BID [facility] Last Admin: 08/20/16 09:22 Dose: 17 grams Fluticasone/Salmeterol (Advair 100mcg/50mcg -) 1 puff IH BID [facility] Last Admin: 08/20/16 09:21 Dose: 1 puff Sotalol HCl (Betapace -) 120 mg PO BID [facility] Last Admin: 08/20/16 09:21 Dose: Not Given Review of Systems Constitutional: denies: chills, fever Cardiovascular: As noted above Respiratory: reports: cough Gastrointestinal: denies: nausea, vomiting, diarrhea, constipation or abdominal pain Genitourinary: No symptoms reported Musculoskeletal: No symptoms reported - Objective Vital Signs: Last Vital Signs Temp Pulse Resp BP Pulse Ox 98.2 F 84 20 105/63 100 08/20/16 06:00 08/20/16 06:00 08/20/16 06:00 08/20/16 06:00 08/20/16 00:28 Neck: Supple Negative JVD No Bruit Cardiovascular: S1 S2 Regular Rate and Rhythm Respiratory: Scattered Rhonchi Bilaterally with Diminished Breath Sounds at the Bases Gastrointestinal: Soft Benign Normal Bowel Sounds Edema: No Labs: CBC, BMP 08/20/16 08:05 08/20/16 08:05 Assessment/Plan ASSESSMENT: 1. Hypercapeniec respiratory failure related to COPD/emphysema exacerbation, resolving 2. Paroxysmal atrial fibrillation currently in sinus rhythm [id number] score of 7 on NOAC's 3. Diastolic LV dysfunction with chronic class I-II NYHA classification LV failure, compensated 4. CAD non obstructive CAD angina pectoris 4. HTN 5. NIDDM 6. Hyperlipidemia 7. Parkinson's disease 8. Hyperthyroidism 9. History of gastritis - gastric AVM post cautery 10. Anemia 11. Pre-renal azotemia 12. Hydronephrosis, related to bladder retention PLAN: 1. Continue Sotalol at the current dosage with close monitoring of QTc interval 2. Continue Cardizem CD 3. Currently off of Diovan and Lasix therapies, to be resumed once pre-renal azotemia, resolves 4. Continue A/C with Eliquis with caution considering the above noted history of anemia and GI bleed (dose correction to 2.5 mg twice daily, Wt. < 60 Kg and age > 80) 5. Bronchodilators and steroids as per primary team 6. Monitor CBC and transfuse as needed to maintain Hg equal or > 8.0 Bernie Sharif MD
[2016-08-20] MEDS ORDERED: SODIUM PHOSPHATE/NA BIPHOS 133 ML ENEMA PR ONE (09:52)
[2016-08-20] MEDS ORDERED: TAMSULOSIN HCL 0.4 MG CAP.ER.24H (FP) PO SCH (09:52)
--- NOTE | 2016-08-20 10:02 | PN ---
Progress Note (short form) - Note Progress Note: Subjective: no fever or chills, no abd pain , no Diarrhea . no SOB . Bladder scan showed urinary retention . she had one small hard BM last night Objective: Vital Signs: Last Vital Signs Temp Pulse Resp BP Pulse Ox 98.2 F 84 20 105/63 100 08/20/16 06:00 08/20/16 06:00 08/20/16 06:00 08/20/16 06:00 08/20/16 00:28 Physical Exam: NAD ,awake , communicative CV: RRR, no MRG Lungs: decreased breath sounds at L side Abd : soft, NT, ND , nL BS Ext: no edema or erythema over LE Laboratory Results - last 24 hr 08/19/16 08/19/16 08/19/16 12:00 12:16 17:18 WBC RBC Hgb Hct MCV MCHC RDW Plt Count MPV Neutrophils % Lymphocytes % Monocytes % Eosinophils % Basophils % Sodium Potassium Chloride Carbon Dioxide Anion Gap BUN Creatinine POC Glucometer 159 281 Random Glucose Calcium Urine Color Yellow Urine Appearance Slcloudy Urine pH 6.0 Ur Specific Gary 1.017 Urine Protein Negative Urine Glucose (UA) Negative Urine Ketones Negative Urine Blood 3+ H Urine Nitrite Negative Urine Bilirubin Negative Urine Urobilinogen Negative Ur Leukocyte Esterase Negative Urine RBC 213 Urine WBC 10 Ur Epithelial Cells Rare Urine Bacteria Moderate Urine Mucus Rare Urine Yeast Many 08/19/16 08/20/16 08/20/16 22:11 06:26 08:05 WBC 16.5 H RBC 3.98 Hgb 8.3 L Hct 28.7 L MCV 72.1 L MCHC 29.0 L RDW 27.5 H Plt Count 234 MPV 8.8 D Neutrophils % 90.1 H Lymphocytes % 5.1 L D Monocytes % 4.5 D Eosinophils % 0.1 D Basophils % 0.2 Sodium Potassium Chloride Carbon Dioxide Anion Gap BUN Creatinine POC Glucometer 249 165 Random Glucose Calcium Urine Color Urine Appearance Urine pH Ur Specific Gary Urine Protein Urine Glucose (UA) Urine Ketones Urine Blood Urine Nitrite Urine Bilirubin Urine Urobilinogen Ur Leukocyte Esterase Urine RBC Urine WBC Ur Epithelial Cells Urine Bacteria Urine Mucus Urine Yeast 08/20/16 08:05 WBC RBC Hgb Hct MCV MCHC RDW Plt Count MPV Neutrophils % Lymphocytes % Monocytes % Eosinophils % Basophils % Sodium 145 Potassium 3.8 Chloride 102 Carbon Dioxide 36 H Anion Gap 7 L BUN 37 H Creatinine 0.6 POC Glucometer Random Glucose 136 H D Calcium 8.5 Urine Color Urine Appearance Urine pH Ur Specific Gary Urine Protein Urine Glucose (UA) Urine Ketones Urine Blood Urine Nitrite Urine Bilirubin Urine Urobilinogen Ur Leukocyte Esterase Urine RBC Urine WBC Ur Epithelial Cells Urine Bacteria Urine Mucus Urine Yeast ASSESSMENT AND PLAN: 86 yr old woman with h/o CAD , Diastolic CHF , HTN, P Afib , and other medical problems who presented with SOB , she was diagnosed with acute COPD exacerbation , in the setting of LLL PNA. 1- LLL CAP : improving - cont zosyn - now on 3 L of NC, continue BIPAP as needed. - No need for thoracentesis as clinically she is imporving . D/W dr. Huddleston - Repeat Cxray today . 2- Acute Copd exa : cont steroid taper ( Solu-Medrol 40 daily, day 2 ) Cont Nebs cont Advair. 3- Hypotension : resolved. cont Sotalol and cardizem cont to hold ARB and lasix for now 4- H/o Diastolic CHF ,echo in not in acute CHF now. will resume lasix when signs of dehydration resolve encourage po hydration for now 5- P A fib : cont sotalol and cardizem . cont eliquis 6- R hydronephrosis: due to chronic urinary retention and chronic reflux . - cont manning - follow urine cx ( unlikely UTI ) - Start flomax with caution monitoring her BP 7- Constipation : cont miralax . give an enema today 8- dispo : OC DNR/DNI Visit type - Emergency Visit Emergency Visit: Yes ED Registration Date: 08/09/16 Care time: The patient presented to the Emergency Department on the above date and was hospitalized for further evaluation of their emergent condition. - New Patient This patient is new to me today: No - Critical Care Critical Care patient: No
[2016-08-20 10:05] LABS: ANISOCYTOSIS 3+; HYPOCHROMIA 3+; POIKILOCYTOSIS 3+
[2016-08-20 10:06] LABS: FRAGMENTED CELL 2+; MICROCYTOSIS 2+; OVALOCYTES 1+; TARGET CELLS 1+; TEAR DROP CELLS 1+
--- NOTE | 2016-08-20 12:30 | PN ---
Progress Note (short form) - Note Progress Note: PULMONARY OOB TO CHAIR/NASAL O2 AFEBRILE/VSS ANICTERIC DIMINISHED BREATH SOUNDS ON LEFT S1S2 BS+ SOFT NO EDEMA LABS/MEDS/IMAGING/NOTES REVIEWED CT CHEST NOTED CXR TODAY: COMPLETE OPACIFICATION LEFT LUNG Pneumonia/atelectasis UTI Sepsis Atrial Fibrillation with RVR improving Acute on Chronic LV Diastolic Heart Failure likely rate related CAD Acute COPD Exacerbation HTN DM Hypercholesterolemia Hyperthyroidism - continue antibiotics - Lasix - BiPAP PRN - O2 to keep SpO2 >90% - medrol to continue - glucose control - inhaled bronchodilators - monitor urine output, creatinine - PO as tolerated - DVT/GI prophylaxis/Chest PT CLOSE MONITORING ON TELE Carmela GREEN MD
[2016-08-20] MEDS ORDERED: SODIUM CHLORIDE 250 ML IV STA (12:55)
--- NOTE | 2016-08-20 13:09 | PN ---
Progress Note (short form) - Note Progress Note: afebrile urinary retention - manning placed yesterday with almost 2 liters of ivf small bm last pm still c/o sob oob in chair Vital Signs Period Temp Pulse Resp BP Sys/Pinedo Pulse Ox Last 24 Hr 96.9 F-98.2 F 72-114 18-22 87-105/54-63 92-100 decreased bs left lung throughout cor- tachy abd softer, less distended manning ext no edema CBC, BMP 08/20/16 08:05 08/20/16 08:05 Microbiology 08/19/16 12:00 Urine - Urine Clean Catch Urine Culture - Preliminary cxray- increased left lung infiltrate a/p pneumonia urinary retention constipation lung sono to evaluate effusion chest PT- ?component atelectasis continue zosyn d/w hospitilist
[2016-08-20] MEDS ORDERED: DIGOXIN 0.5 MG/2 ML AMPUL ONE (14:28)
[2016-08-20] MEDS ORDERED: DIGOXIN 0.5 MG/2 ML AMPUL IVPUSH ONE (14:45)
--- NOTE | 2016-08-20 14:45 | HOSP ---
Subjective - Review of Symptoms Events since last encounter: Called to see patient as her HR was 180s and BP 70/40 . Upon arrival to room, patient was awake , complained of palpitations. she denied any CP . CV: irreg irreg . Lungs: clear R lung , decrease breath sounds on L lung field EKG obtained , A fib , rate in 170s . Gave patient 0.5 mg of IV Digoxin and 6 mg of Adenosine. few min later the HR improved to 100-104 on monitor , and it converted to sinus rhythm . repeat BP 99-102/50. Pt has no sx of palpitation now and has no CP. Dr. Olvera was notified. Recs to give sotalol and hold continuation of the Dig load. On further investigation, she did not get her sotalol this Am due to the hypotension. will give her AM dose of sotalol 120 in 30 min after stabilization of her BP . will monitor lung exam. she is already receiving 250 cc of IVF over 2 -3 hours . will hold off further fluids Spoke to family at bed side . critical care time 40 min Physical Examination Vital Signs: Vital Signs Temperature 97.7 F 08/20/16 13:01 Pulse Rate 114 H 08/20/16 13:01 Respiratory Rate 22 08/20/16 13:01 Blood Pressure 87/54 08/20/16 13:01 O2 Sat by Pulse Oximetry (%) 92 L 08/20/16 13:01 Labs: CBC, BMP 08/20/16 08:05 08/20/16 08:05
[2016-08-20] MEDS ORDERED: ADENOSINE 6 MG/2 ML VIAL IVPUSH ONE (14:46)
[2016-08-20] MEDS ORDERED: PT OWN MED DRAWER 7, Y5N ONE (22:12)
[2016-08-20] MEDS: APIXABAN 2.5 MG TABLET PO SCH (22:15)
[2016-08-20] MEDS: ATORVASTATIN CA 10 MG TABLET (FP) PO SCH (22:15)
[2016-08-20] MEDS: NORTRIPTYLINE HCL 10 MG CAPSULE PO SCH (22:23)
[2016-08-20] MEDS: INSULIN DETEMIR 100 UNITS/ML MDV SQ SCH (22:26)
[2016-08-21] MEDS: PIPERACILLIN/TAZOB 3.375 GM 50 ML IVPB SCH ×3 (02:30→17:03)
--- NOTE | 2016-08-21 05:46 | HOSP ---
Addendum entered and electronically signed by Shreya Anaya RES 08/21/16 07 :01: Patients repeat BP-98/75mmHg, HR-157 after 10mg of IV Diltiazem and 120mg PO cardizem. Now ordered Digoxin 0.25mg IV Stat Discussed with Dr. Chu and Dr. Seals. Original Note: Physical Examination Vital Signs: Vital Signs Temperature 97.9 F 08/21/16 05:24 Pulse Rate 145 H 08/21/16 05:24 Respiratory Rate 20 08/21/16 05:24 Blood Pressure 104/65 08/21/16 05:24 O2 Sat by Pulse Oximetry (%) 92 L 08/20/16 21:00 Labs: CBC, BMP 08/20/16 08:05 08/20/16 08:05 Hospitalist Encounter Assessment: Was informed by the nurse that patient is in a-fib, HR ranging from 140-160. Patient seen and examined at bed immediately. Patient complained of palpitation with chest discomfort but no chest pain, sob or cough. Vitals: BP- 104/65 mmHg P- 149-155 bpm RR-14 Temp- 97 F Spo2-96 % @ 3L nasal oxygen Physical Exam General: Elderly female lying comfortably in bed, awake, alert, in no acute distress. Chest- Scattered Rhonchi Bilaterally with Diminished Breath Sounds at the Bases CVS- Irregularly irregular, tachycardic, S1, S2 Abdomen- Soft, tender to palpation, no organomegaly, BS+ A/P Rapid afib-rate uncontrolled 10mg of IV Diltiazem stat given, rate now 95-100bpm. Monitor vitals Give early dose of Diltiazem after the repeat vitals. No active chest pain, hence troponins not ordered. Stat EKG done, attached in the chart. Visit type - Emergency Visit Emergency Visit: Yes ED Registration Date: 08/09/16 Care time: The patient presented to the Emergency Department on the above date and was hospitalized for further evaluation of their emergent condition. - New Patient This patient is new to me today: Yes Date on this admission: 08/21/16 - Critical Care Critical Care patient: No
[2016-08-21] MEDS: INSULIN SLIDING SCALE (NOVOLOG) 1 VIAL SQ SCH ×4 (06:42→23:39)
[2016-08-21] MEDS: METHIMAZOLE 5 MG TABLET (FP) PO SCH ×3 (06:43→23:38)
[2016-08-21] MEDS ORDERED: DIGOXIN 0.5 MG/2 ML AMPUL IVPUSH ONE (07:00)
[2016-08-21] MEDS ORDERED: dilTIAZem HCL 50 MG/10 ML - 10 ML VIAL IVPUSH ONE (07:01)
[2016-08-21] MEDS: SOTALOL HCL 80 MG TABLET (FP) PO SCH ×3 (07:09→23:38)
[2016-08-21 07:30] LABS: MCH 21.8 pg (25.7-33.7); MCHC 30.3 g/dl (32.0-36.0); MEAN CELL VOLUME 71.9 fl (80-96); MEAN PLT VOLUME 9.3 fl (7.5-11.1); NEUTROPHILS 91.6 % (42.8-82.8); PLATELET COUNT 241 K/MM3 (134-434); RDW 27.1 % (11.6-15.6); WHITE BLOOD COUNT 16.1 K/mm3 (4.0-10.0)
[2016-08-21 08:11] LABS: CALCIUM 8.5 mg/dL (8.5-10.1); CREATININE 0.5 mg/dL (0.55-1.02)
--- NOTE | 2016-08-21 08:11 | PN ---
Physical Exam: SUBJECTIVE: Patient seen and examined. c/o of heart racing earlier this morning, now she feels better. also c/o feeling hungry denies chest pain, sob, abdominal pain. OBJECTIVE: Vital Signs Period Temp Pulse Resp BP Sys/Pinedo Pulse Ox Last 24 Hr 97.3 F-100 F 72-187 18-22 85-114/43-70 91-97 GENERAL: The patient is awake, alert, and NAD EYES: extraocular movements intact ENT: nares patent, on nasal cannula 4lpm NECK: Trachea midline, full range of motion, supple. LUNGS: wheezing in right, rhonchi b/l HEART: afib, S1, S2. no murmurs. ABDOMEN: Soft, nontender, nondistended, normoactive bowel sounds EXTREMITIES: 2+ pulses, warm, well-perfused, no edema. NEUROLOGICAL: Normal speech. PSYCH: Flat affect, appears distant. nonconversant Manning in place, clear yellow urine Laboratory Results - last 24 hr 08/20/16 08/20/16 08/20/16 08:05 08:05 11:51 WBC 16.5 H RBC 3.98 Hgb 8.3 L Hct 28.7 L MCV 72.1 L MCHC 29.0 L RDW 27.5 H Plt Count 234 MPV 8.8 D Neutrophils % 90.1 H Lymphocytes % 5.1 L D Monocytes % 4.5 D Eosinophils % 0.1 D Basophils % 0.2 Hypochromic-Microcytic 3+ Poikilocytosis 3+ Basophilic Stippling 1+ Anisocytosis 3+ Microcytosis 2+ Macrocytosis 1+ Target Cells 1+ Tear Drop Cells 1+ Ovalocytes 1+ Fragmented RBCs 2+ Morphology Comment Slide scanned Sodium 145 Potassium 3.8 Chloride 102 Carbon Dioxide 36 H Anion Gap 7 L BUN 37 H Creatinine 0.6 POC Glucometer 183 Random Glucose 136 H D Calcium 8.5 08/20/16 08/20/16 08/21/16 17:18 23:16 02:19 WBC RBC Hgb Hct MCV MCHC RDW Plt Count MPV Neutrophils % Lymphocytes % Monocytes % Eosinophils % Basophils % Hypochromic-Microcytic Poikilocytosis Basophilic Stippling Anisocytosis Microcytosis Macrocytosis Target Cells Tear Drop Cells Ovalocytes Fragmented RBCs Morphology Comment Sodium Potassium Chloride Carbon Dioxide Anion Gap BUN Creatinine POC Glucometer 322 481 267 Random Glucose Calcium 08/21/16 08/21/16 05:35 06:37 WBC 16.1 H RBC 3.89 Hgb 8.5 L Hct 28.0 L MCV 71.9 L MCHC 30.3 L RDW 27.1 H Plt Count 241 MPV 9.3 Neutrophils % 91.6 H Lymphocytes % 4.0 L D Monocytes % 4.4 Eosinophils % 0.0 D Basophils % 0.0 Hypochromic-Microcytic Poikilocytosis Basophilic Stippling Anisocytosis Microcytosis Macrocytosis Target Cells Tear Drop Cells Ovalocytes Fragmented RBCs Morphology Comment Sodium Potassium Chloride Carbon Dioxide Anion Gap BUN Creatinine POC Glucometer 135 Random Glucose Calcium Active Medications Generic Name Dose Route Start Last Admin Trade Name Freq PRN Reason Stop Dose Admin Albuterol Sulfate 1 amp 08/10/16 20:31 08/16/16 17:56 Ventolin 0.083% Nebulizer Soln - NEB 1 amp Q4H PRN Administration SHORT OF BREATH/WHEEZING Apixaban 2.5 mg 08/20/16 22:00 08/20/16 22:15 Eliquis - PO 2.5 mg BID MICHAEL Administration Atorvastatin Calcium 10 mg 08/09/16 22:00 08/20/16 22:15 Lipitor - PO 10 mg HS MICHAEL Administration Diltiazem HCl 120 mg 08/16/16 18:20 08/21/16 06:15 Cardizem Cd - PO 120 mg DAILY MICHAEL Administration Piperacillin Sod/Tazobactam Sod 50 mls @ 100 mls/hr 08/17/16 13:35 08/21/16 02: 30 Zosyn 3.375gm Ivpb (Pre-Docked) IVPB 100 mls/hr Q8H-IV MICHAEL Administration Insulin Aspart 1 vial 08/13/16 11:00 08/21/16 06:42 Novolog Vial Sliding Scale - SQ Not Given ACHS [facility] Protocol Insulin Detemir 8 units 08/17/16 22:00 08/20/16 22:26 Levemir Vial SQ 8 units HS MICHAEL Administration Methimazole 15 mg 08/09/16 22:00 08/21/16 06:43 Tapazole - PO 15 mg TID MICHAEL Administration Methylprednisolone Sodium Succinate 40 mg 08/19/16 10:00 08/20/16 09:22 Solu-Medrol - IVPB 40 mg DAILY MICHAEL Administration Nortriptyline HCl 30 mg 08/09/16 22:00 08/20/16 22:23 Pamelor - PO 30 mg HS MICHAEL Administration Rmhhm-8-Schz Ethyl Esters 2 gm 08/09/16 22:00 08/20/16 22:15 Lovaza - PO 2 gm BID MICHAEL Administration Polyethylene Glycol 17 gm 08/17/16 22:00 08/20/16 22:16 Miralax (For Daily Use) - PO 17 grams BID MICHAEL Administration Fluticasone/Salmeterol 1 puff 08/16/16 10:00 08/20/16 22:15 Advair 100mcg/50mcg - IH 1 puff BID MICHAEL Administration Sotalol HCl 120 mg 08/20/16 15:01 08/21/16 07:09 Betapace - PO 120 mg BID MICHAEL Administration Tamsulosin HCl 0.4 mg 08/20/16 09:52 08/20/16 10:39 Flomax - PO 0.4 mg DAILY@0830 MICHAEL Administration ASSESSMENT/PLAN: 86 yr old woman with multiple co-morbidities BIBEMS from [facility] for difficulty breathing, was found to be in rapid Afib in the ED admitted for sepsis likely from pna, rapid Afib, and hypoxia/respiratory distress. Found to have urinary retention, right hydronephrosis. - family has expressed interest in discussing options for hospice, Cris Romero contacted. will arrange for family meeting. - acute episode of rapid afib this morning, HR 180's. treated with 0.25 dig and cardizem 10mg ivpush, improved #Afib, persistent - acute event - sotalol 120mg po bid - cardizem 120mg po - abixapan 2.5mg po bid #Pneumonia (strep positive) - leucocytosis continuing to improve, however Chest xray now with white out of left lung, worsening. - zosyn 3.375gm q8hr --start 08/17 - rocephin 1gm iv daily --start 08/10 - stopped 08/17 #Hydronephrosis - manning in place draining clear yellow urine - if family decides on further medical intervention, will consult urology - d/c flomax given low BP #constipation - enema given 08/20 #Respiratory distress/hypoxia, - Improved - nasal cannula continuous - duonebs q4 prn - prednisone 40mg QD - Maintain HOB >30 to reduce aspiration risk and maintain airway and respiration , she does not tolerate laying flat. #DM - uncontrolled - levemir 10u subq HS - novolog sliding scale - BGM ACHS #HTN/CHF - metoprolol tart 5mg IVPush q4h prn - diovan 80m g po daily - hold arb given recent dehydration #CAD - atorvastatin 10mg HS po - lovaza 2gm po BID #Hyperthyroidism -methiazole 15mg po TID #deconditioning - received PT in bed today, tolerated well. #Flat affect - will continue to assess mood - nortryptiline 30mg po daily #Diet: diabetic/low sodium #DVT prophylaxis - on anticoagulation, eliquis code status: DNR/DNI Visit type - Emergency Visit Emergency Visit: No - New Patient This patient is new to me today: No - Critical Care Critical Care patient: No
--- NOTE | 2016-08-21 08:38 | PN ---
Teaching Attending Note Name of Resident: Deon Starks ATTENDING PHYSICIAN STATEMENT I saw and evaluated the patient. I reviewed the resident's note and discussed the case with the resident. I agree with the resident's findings and plan as documented. SUBJECTIVE: no cp or SOB , no palpitations . Event over night : sinus tachy most of the night . then in rapid A fib early this am. She was given 0.25 mg of digoxin and cardizem CD . Of note , sotalol was held last night due to hypotension OBJECTIVE: NAD , Awake , pleasant responsive . CV: irreh irreg , tachy in 140s at time of exam at 7 am Lungs : Clear R lung. decreased breath sounds at L lung field Abd : soft, NT, ND , nl BS Ext : no edema Manning in ASSESSMENT AND PLAN: 86 yr old woman with h/o CAD , Diastolic CHF , HTN, P Afib , and other medical problems who presented with SOB , she was diagnosed with acute COPD exacerbation , in the setting of LLL PNA. 1- LLL CAP : with worsening infiltrate /? atelectasis /pleural effusion in L lung - cont zosyn - now on 4 L of NC. - US of the L hemithorax to evaluate extent of Pleural effusion - Repeat Cxray today . 2- Acute Copd exa : cont steroid taper ( Solu-Medrol 40 daily, day 3) , will decrease tomorrow .monitor for hyperglycemia Cont Nebs cont Advair. 3- Hypotension : SBP in 90s. Worse with Rapid A fib . She cont to have evidence of dehydration cont to hold ARB and lasix for now Cont sotalol and cardizem with caution start low dose of 1/2 NS 4- H/o Diastolic CHF ,echo in not in acute CHF now. will resume lasix when signs of dehydration resolve 5- P Afib : s/p Adenosine , and Dig yesterday. S/p dig and cardizem this am. BP in 90s now . A fib is worsening when sotalol is held( was held yesterday Am and last night ) give sotalol early 120 mg now . monitor effect of dig this am cont cardizem . cont eliquis 6- R hydronephrosis: due to chronic urinary retention and chronic reflux . - cont manning - follow urine cx ( unlikely UTI ) - flomax was started yesterday, will hold for now given her hypotesnion to give more room for rate control 7- Constipation : cont bowel regimen 8- dispo : HLOC DNR/DNI per d/w family , care home goal is hospice. Will arrange for palliative care meeting on Sunday ( daughter will be available on Sunday )
[2016-08-21] MEDS ORDERED: SODIUM CHLORIDE 0.45% 1,000 ML IV SCH (08:45)
--- NOTE | 2016-08-21 10:25 | PN ---
Progress Note, Physician Chief Complaint: Paroxysmal atrial fibrillation - shelter monitor reveals atrial flutter at 150 bpm early this am, but now is in sinus rhythm History of Present Illness: Patient was seen and examined. Awake, but has flat affect. Chart was reviewed Does not appear to be having chest pain or shortness of breath - Current Medication List Current Medications: Active Medications Albuterol Sulfate (Ventolin 0.083% Nebulizer Soln -) 1 amp NEB Q4H PRN PRN Reason: SHORT OF BREATH/WHEEZING Last Admin: 08/16/16 17:56 Dose: 1 amp Apixaban (Eliquis -) 2.5 mg PO BID [facility] Last Admin: 08/20/16 22:15 Dose: 2.5 mg Atorvastatin Calcium (Lipitor -) 10 mg PO HS [facility] Last Admin: 08/20/16 22:15 Dose: 10 mg Diltiazem HCl (Cardizem Cd -) 120 mg PO DAILY [facility] Last Admin: 08/21/16 06:15 Dose: 120 mg Piperacillin Sod/Tazobactam Sod (Zosyn 3.375gm Ivpb (Pre-Docked)) 50 mls @ 100 mls/hr IVPB Q8H-IV [facility] Last Admin: 08/21/16 02:30 Dose: 100 mls/hr Sodium Chloride (1/2 Normal Saline) 1,000 mls @ 50 mls/hr IV ASDIR [facility] Stop: 08/22/16 08:39 Insulin Aspart (Novolog Vial Sliding Scale -) 1 vial SQ ACHS MICHAEL PRN Reason: Protocol Last Admin: 08/21/16 06:42 Dose: Not Given Insulin Detemir (Levemir Vial) 8 units SQ HS [facility] Last Admin: 08/20/16 22:26 Dose: 8 units Methimazole (Tapazole -) 15 mg PO TID [facility] Last Admin: 08/21/16 06:43 Dose: 15 mg Methylprednisolone Sodium Succinate (Solu-Medrol -) 40 mg IVPB DAILY [facility] Last Admin: 08/20/16 09:22 Dose: 40 mg Nortriptyline HCl (Pamelor -) 30 mg PO HS [facility] Last Admin: 08/20/16 22:23 Dose: 30 mg Abqkg-3-Ovhv Ethyl Esters (Lovaza -) 2 gm PO BID [facility] Last Admin: 08/20/16 22:15 Dose: 2 gm Polyethylene Glycol (Miralax (For Daily Use) -) 17 gm PO BID [facility] Last Admin: 08/20/16 22:16 Dose: 17 grams Fluticasone/Salmeterol (Advair 100mcg/50mcg -) 1 puff IH BID [facility] Last Admin: 08/20/16 22:15 Dose: 1 puff Sotalol HCl (Betapace -) 120 mg PO BID [facility] Last Admin: 08/21/16 07:09 Dose: 120 mg - Objective Vital Signs: Vital Signs Temperature 97.3 F L 08/21/16 07:49 Pulse Rate 144 H 08/21/16 07:49 Respiratory Rate 18 08/21/16 07:49 Blood Pressure 114/70 08/21/16 07:49 O2 Sat by Pulse Oximetry (%) 97 08/21/16 07:49 Currently 66 bpm Neck: Yes: Supple Cardiovascular: Yes: Regular Rate and Rhythm, S1, S2 Respiratory: Yes: Diminished Gastrointestinal: Yes: Normal Bowel Sounds, Soft. No: Tenderness Edema: No Additional Findings/Remarks: Review of Systems Constitutional: denies: chills, fever Cardiovascular: As noted above Respiratory: reports: cough Gastrointestinal: denies: nausea, vomiting, diarrhea, constipation or abdominal pain Genitourinary: No symptoms reported Musculoskeletal: No symptoms reported Labs: CBC, BMP 08/21/16 05:35 08/21/16 05:35 Problem List - Problems (1) Acute on chronic diastolic (congestive) heart failure Code(s): I50.33 - ACUTE ON CHRONIC DIASTOLIC (CONGESTIVE) HEART FAILURE (2) Acute on chronic respiratory failure with hypoxia and hypercapnia Code(s): J96.21 - ACUTE AND CHRONIC RESPIRATORY FAILURE WITH HYPOXIA J96.22 - ACUTE AND CHRONIC RESPIRATORY FAILURE WITH HYPERCAPNIA (3) Atrial fibrillation with rapid ventricular response Code(s): I48.91 - UNSPECIFIED ATRIAL FIBRILLATION (4) CHF (congestive heart failure) Code(s): I50.9 - HEART FAILURE, UNSPECIFIED Qualifiers: Qualified Code(s): I50.33 - Acute on chronic diastolic (congestive) heart failure (5) Paroxysmal atrial fibrillation Code(s): I48.0 - PAROXYSMAL ATRIAL FIBRILLATION (6) Acute exacerbation of chronic obstructive pulmonary disease Code(s): J44.1 - CHRONIC OBSTRUCTIVE PULMONARY DISEASE W (ACUTE) EXACERBATION (7) Anemia Code(s): D64.9 - ANEMIA, UNSPECIFIED Qualifiers: Qualified Code(s): D64.9 - Anemia, unspecified (8) COPD (chronic obstructive pulmonary disease) Code(s): J44.9 - CHRONIC OBSTRUCTIVE PULMONARY DISEASE, UNSPECIFIED Qualifiers : Qualified Code(s): J43.2 - Centrilobular emphysema (9) Cardiomyopathy as manifestation of underlying disease Code(s): I43 - CARDIOMYOPATHY IN DISEASES CLASSIFIED ELSEWHERE (10) Coronary artery disease Code(s): I25.10 - ATHSCL HEART DISEASE OF [place] CORONARY ARTERY W/O ANG PCTRS Qualifiers: Qualified Code(s): I25.10 - Atherosclerotic heart disease of [place] coronary artery without angina pectoris (11) Diabetes Code(s): E11.9 - TYPE 2 DIABETES MELLITUS WITHOUT COMPLICATIONS Qualifiers: Qualified Code(s): E11.9 - Type 2 diabetes mellitus without complications (12) Diastolic dysfunction with chronic heart failure Code(s): I50.32 - CHRONIC DIASTOLIC (CONGESTIVE) HEART FAILURE (13) Gastric AV malformation Code(s): Q27.33 - ARTERIOVENOUS MALFORMATION OF DIGESTIVE SYSTEM VESSEL (14) HTN (hypertension) Code(s): I10 - ESSENTIAL (PRIMARY) HYPERTENSION Qualifiers: Qualified Code(s): I10 - Essential (primary) hypertension (15) Hyperlipidemia Code(s): E78.5 - HYPERLIPIDEMIA, UNSPECIFIED Qualifiers: Qualified Code(s): E78.2 - Mixed hyperlipidemia (16) Hyperthyroidism Code(s): E05.90 - THYROTOXICOSIS, UNSP WITHOUT THYROTOXIC CRISIS OR STORM (17) Pneumonia Code(s): J18.9 - PNEUMONIA, UNSPECIFIED ORGANISM Assessment/Plan 1. Acute on chronic hypercapeniec/hypoxemic respiratory failure related to COPD/ emphysema exacerbation and pneumonia 2. Acute on chronic LV diastolic failure 3. Non obstructive CAD, angina pectoris 4. Paroxysmal atrial fibrillation/flutter with periods of RVR - recurrence, [id number] score of 7 on NOAC 4. HTN 5. NIDDM 6. Hyperlipidemia 7. Parkinson's disease 8. Hyperthyroidism 9. Anemia 10. History of gastritis - gastric AVM post cautery PLAN: 1. Continue Sotalol 120 mg BID, Eliquis 2.5 mg BID, Lovaza 2 g BID and Lipitor 10 mg QHS. Continue Cardizem CD 120 mg QD 2. Monitor renal function and electrolytes 3. Empiric antibiotics as per ID, steroids taper, Bronchodilators, O2 and BIPAP 4. Continue Tapazole 5. GI prophylaxis Further plans are to follow. Ronn Grimes MD
--- NOTE | 2016-08-21 10:32 | PN ---
Progress Note, Physician History of Present Illness: pulmonary alert,less congested on nasal cannula - Current Medication List Current Medications: Active Medications Albuterol Sulfate (Ventolin 0.083% Nebulizer Soln -) 1 amp NEB Q4H PRN PRN Reason: SHORT OF BREATH/WHEEZING Last Admin: 08/16/16 17:56 Dose: 1 amp Apixaban (Eliquis -) 2.5 mg PO BID [facility] Last Admin: 08/20/16 22:15 Dose: 2.5 mg Atorvastatin Calcium (Lipitor -) 10 mg PO HS [facility] Last Admin: 08/20/16 22:15 Dose: 10 mg Diltiazem HCl (Cardizem Cd -) 120 mg PO DAILY [facility] Last Admin: 08/21/16 06:15 Dose: 120 mg Piperacillin Sod/Tazobactam Sod (Zosyn 3.375gm Ivpb (Pre-Docked)) 50 mls @ 100 mls/hr IVPB Q8H-IV [facility] Last Admin: 08/21/16 02:30 Dose: 100 mls/hr Sodium Chloride (1/2 Normal Saline) 1,000 mls @ 50 mls/hr IV ASDIR [facility] Stop: 08/22/16 08:39 Insulin Aspart (Novolog Vial Sliding Scale -) 1 vial SQ ACHS [facility] PRN Reason: Protocol Last Admin: 08/21/16 06:42 Dose: Not Given Insulin Detemir (Levemir Vial) 8 units SQ [facility] Last Admin: 08/20/16 22:26 Dose: 8 units Methimazole (Tapazole -) 15 mg PO TID [facility] Last Admin: 08/21/16 06:43 Dose: 15 mg Methylprednisolone Sodium Succinate (Solu-Medrol -) 40 mg IVPB DAILY [facility] Last Admin: 08/20/16 09:22 Dose: 40 mg Nortriptyline HCl (Pamelor -) 30 mg PO HS [facility] Last Admin: 08/20/16 22:23 Dose: 30 mg Spngd-8-Fyep Ethyl Esters (Lovaza -) 2 gm PO BID [facility] Last Admin: 08/20/16 22:15 Dose: 2 gm Polyethylene Glycol (Miralax (For Daily Use) -) 17 gm PO BID [facility] Last Admin: 08/20/16 22:16 Dose: 17 grams Fluticasone/Salmeterol (Advair 100mcg/50mcg -) 1 puff IH BID [facility] Last Admin: 08/20/16 22:15 Dose: 1 puff Sotalol HCl (Betapace -) 120 mg PO BID [facility] Last Admin: 08/21/16 07:09 Dose: 120 mg - Objective Vital Signs: Vital Signs Temperature 97.3 F L 08/21/16 07:49 Pulse Rate 144 H 08/21/16 07:49 Respiratory Rate 18 08/21/16 07:49 Blood Pressure 114/70 08/21/16 07:49 O2 Sat by Pulse Oximetry (%) 97 08/21/16 07:49 Constitutional: Yes: Well Nourished, Calm Eyes: Yes: WNL HENT: Yes: WNL Neck: Yes: WNL Cardiovascular: Yes: Pulse Irregular, S1, S2 Respiratory: Yes: Rhonchi (scattered edward rhonchi) Gastrointestinal: Yes: Normal Bowel Sounds, Soft Extremities: Yes: WNL Edema: Yes Labs: CBC, BMP 08/21/16 05:35 08/21/16 05:35 INR, PTT INR 1.17 (0.82-1.09) H 08/09/16 09:30 Assessment/Plan A/P Pneumonia UTI Sepsis Atrial Fibrillation with RVR improving Acute on Chronic LV Diastolic Heart Failure likely rate related CAD Acute COPD Exacerbation HTN DM Hypercholesterolemia Hyperthyroidism - antibiotics - Lasix - BiPAP PRN - O2 to keep SpO2 >90% - solumedrol - glucose control - inhaled bronchodilators - monitor urine output, creatinine - PO as tolerated - DVT/GI prophylaxis Problem List - Problems (1) Acute on chronic respiratory failure with hypoxia and hypercapnia Code(s): J96.21 - ACUTE AND CHRONIC RESPIRATORY FAILURE WITH HYPOXIA J96.22 - ACUTE AND CHRONIC RESPIRATORY FAILURE WITH HYPERCAPNIA (2) Pneumonia Code(s): J18.9 - PNEUMONIA, UNSPECIFIED ORGANISM (3) UTI (urinary tract infection) Code(s): N39.0 - URINARY TRACT INFECTION, SITE NOT SPECIFIED Qualifiers: Qualified Code(s): N39.0 - Urinary tract infection, site not specified (4) Sepsis Code(s): A41.9 - SEPSIS, UNSPECIFIED ORGANISM Qualifiers: Qualified Code(s): A41.9 - Sepsis, unspecified organism (5) Atrial fibrillation with rapid ventricular response Code(s): I48.91 - UNSPECIFIED ATRIAL FIBRILLATION (6) Acute exacerbation of chronic obstructive pulmonary disease Code(s): J44.1 - CHRONIC OBSTRUCTIVE PULMONARY DISEASE W (ACUTE) EXACERBATION (7) Acute on chronic diastolic (congestive) heart failure Code(s): I50.33 - ACUTE ON CHRONIC DIASTOLIC (CONGESTIVE) HEART FAILURE (8) Coronary artery disease Code(s): I25.10 - ATHSCL HEART DISEASE OF [place] CORONARY ARTERY W/O ANG PCTRS Qualifiers: Qualified Code(s): I25.10 - Atherosclerotic heart disease of [place] coronary artery without angina pectoris (9) Diabetes Code(s): E11.9 - TYPE 2 DIABETES MELLITUS WITHOUT COMPLICATIONS Qualifiers: Qualified Code(s): E11.9 - Type 2 diabetes mellitus without complications (10) HTN (hypertension) Code(s): I10 - ESSENTIAL (PRIMARY) HYPERTENSION Qualifiers: Qualified Code(s): I10 - Essential (primary) hypertension (11) Hyperlipidemia Code(s): E78.5 - HYPERLIPIDEMIA, UNSPECIFIED Qualifiers: Qualified Code(s): E78.2 - Mixed hyperlipidemia
[2016-08-21] MEDS: APIXABAN 2.5 MG TABLET PO SCH ×2 (10:36→23:38)
[2016-08-21] MEDS: OMEGA-3 ACID ETHYL ESTERS (FATTY-ACIDS) 1 GM CAPSULE (FP) PO SCH ×2 (10:36→23:39)
[2016-08-21] MEDS: FLUTICASONE/SALMETEROL 100 MCG/50 MCG DISKUS IH SCH ×2 (10:36→22:00)
[2016-08-21] MEDS: POLYETHYLENE GLYCOL 3350 119 GM BTL PO SCH ×2 (10:37→23:40)
[2016-08-21] MEDS: methylPREDNISolone NA SUCC 40 MG/1 ML VIAL IVPB SCH (10:37)
--- NOTE | 2016-08-21 11:19 | PN ---
Progress Note, Physician History of Present Illness: Seated in bed Appears comfortable on nasal cannula O2 Breathing non-labored No cough noted Low grade temp - Current Medication List Current Medications: Active Medications Albuterol Sulfate (Ventolin 0.083% Nebulizer Soln -) 1 amp NEB Q4H PRN PRN Reason: SHORT OF BREATH/WHEEZING Last Admin: 08/16/16 17:56 Dose: 1 amp Apixaban (Eliquis -) 2.5 mg PO BID [facility] Last Admin: 08/21/16 10:36 Dose: 2.5 mg Atorvastatin Calcium (Lipitor -) 10 mg PO HS [facility] Last Admin: 08/20/16 22:15 Dose: 10 mg Diltiazem HCl (Cardizem Cd -) 120 mg PO DAILY [facility] Last Admin: 08/21/16 10:25 Dose: Not Given Piperacillin Sod/Tazobactam Sod (Zosyn 3.375gm Ivpb (Pre-Docked)) 50 mls @ 100 mls/hr IVPB Q8H-IV [facility] Last Admin: 08/21/16 10:37 Dose: 100 mls/hr Sodium Chloride (1/2 Normal Saline) 1,000 mls @ 50 mls/hr IV ASDIR [facility] Stop: 08/22/16 08:39 Last Admin: 08/21/16 10:35 Dose: 50 mls/hr Insulin Aspart (Novolog Vial Sliding Scale -) 1 vial SQ ACHS [facility] PRN Reason: Protocol Last Admin: 08/21/16 06:42 Dose: Not Given Insulin Detemir (Levemir Vial) 8 units SQ HS [facility] Last Admin: 08/20/16 22:26 Dose: 8 units Methimazole (Tapazole -) 15 mg PO TID [facility] Last Admin: 08/21/16 06:43 Dose: 15 mg Methylprednisolone Sodium Succinate (Solu-Medrol -) 40 mg IVPB DAILY [facility] Last Admin: 08/21/16 10:37 Dose: 40 mg Nortriptyline HCl (Pamelor -) 30 mg PO [facility] Last Admin: 08/20/16 22:23 Dose: 30 mg Ngmvi-6-Gnfc Ethyl Esters (Lovaza -) 2 gm PO BID [facility] Last Admin: 08/21/16 10:36 Dose: 2 gm Polyethylene Glycol (Miralax (For Daily Use) -) 17 gm PO BID [facility] Last Admin: 08/21/16 10:37 Dose: 17 grams Fluticasone/Salmeterol (Advair 100mcg/50mcg -) 1 puff IH BID [facility] Last Admin: 08/21/16 10:36 Dose: 1 puff Sotalol HCl (Betapace -) 120 mg PO BID [facility] Last Admin: 08/21/16 10:25 Dose: Not Given - Objective Vital Signs: Vital Signs Temperature 97.3 F L 08/21/16 07:49 Pulse Rate 144 H 08/21/16 07:49 Respiratory Rate 18 08/21/16 07:49 Blood Pressure 114/70 08/21/16 07:49 O2 Sat by Pulse Oximetry (%) 97 08/21/16 07:49 Constitutional: Yes: No Distress Eyes: Yes: Conjunctiva Clear Cardiovascular: Yes: Regular Rate and Rhythm, S1, S2 Respiratory: Yes: Diminished Gastrointestinal: Yes: Normal Bowel Sounds, Soft. No: Tenderness Edema: Yes Labs: CBC, BMP 08/21/16 05:35 08/21/16 05:35 INR, PTT INR 1.17 (0.82-1.09) H 08/09/16 09:30 Assessment/Plan Pneumococcal pneumonia COPD exacerbation Afib Low grade temp; Leukocytosis improved CXR shows completely opacified hemithorax Continue zosyn Discussed with pulmonary- mucomyst, chest PT
[2016-08-21] MEDS: ALBUTEROL SO4 0.083% IH SOL 2.5 MG/3 ML VIAL.NEB. NEB SCH ×2 (12:20→17:25)
[2016-08-21] MEDS: ACETYLCYSTEINE 20% 200MG/ML 4 ML VIAL *FOR ORAL / INH USE ONLY NEB SCH ×2 (12:20→17:25)
[2016-08-21] MEDS: INSULIN DETEMIR 100 UNITS/ML MDV SQ SCH (22:00)
[2016-08-21] MEDS: NORTRIPTYLINE HCL 10 MG CAPSULE PO SCH (22:00)
[2016-08-21] MEDS: ATORVASTATIN CA 10 MG TABLET (FP) PO SCH (23:39)
[2016-08-21] MEDS ORDERED: PT OWN MED DRAWER 7, Y5N ONE (23:42)
[2016-08-22] MEDS: PIPERACILLIN/TAZOB 3.375 GM 50 ML IVPB SCH ×3 (02:00→17:51)
[2016-08-22] MEDS: ALBUTEROL SO4 0.083% IH SOL 2.5 MG/3 ML VIAL.NEB. NEB SCH ×5 (06:35→23:30)
[2016-08-22] MEDS: ACETYLCYSTEINE 20% 200MG/ML 4 ML VIAL *FOR ORAL / INH USE ONLY NEB SCH ×5 (06:35→23:30)
--- NOTE | 2016-08-22 06:36 | PN ---
Progress Note (short form) - Note Progress Note: Chief Complaint: Events noted, notes reviewed, complains of persistent dyspnea, denies any chest pain, sinus rhythm is maintained History of Present Illness: Seen and examined on telemetry. Events noted, notes reviewed, complains of persistent dyspnea, denies any chest pain, sinus rhythm is maintained Long conversation with the patient's daughter yesterday via telephone in reference to her mothers condition and advanced disease in addition limitation of options with her advanced age and co-morbidities Echocardiography revealed normal LV systolic dysfunction, mild MR, mild to moderate TR, and moderate degree of pulmonary HTN RVSP of 49 mmHg - Current Medication List Current Medications Acetylcysteine (Mucomyst 20 Oral / Inh Use Only*) 200 mg NEB QIDR [facility] Last Admin: 08/22/16 00:00 Dose: 200 mg Albuterol Sulfate (Ventolin 0.083% Nebulizer Soln -) 1 amp NEB Q4H PRN PRN Reason: SHORT OF BREATH/WHEEZING Last Admin: 08/16/16 17:56 Dose: 1 amp Albuterol Sulfate (Ventolin 0.083% Nebulizer Soln -) 1 amp NEB QIDR [facility] Last Admin: 08/22/16 00:00 Dose: 1 amp Apixaban (Eliquis -) 2.5 mg PO BID [facility] Last Admin: 08/21/16 23:38 Dose: 2.5 mg Atorvastatin Calcium (Lipitor -) 10 mg PO HS [facility] Last Admin: 08/21/16 23:39 Dose: 10 mg Diltiazem HCl (Cardizem Cd -) 120 mg PO DAILY [facility] Last Admin: 08/21/16 10:25 Dose: Not Given Piperacillin Sod/Tazobactam Sod (Zosyn 3.375gm Ivpb (Pre-Docked)) 50 mls @ 100 mls/hr IVPB Q8H-IV [facility] Last Admin: 08/22/16 02:00 Dose: 100 mls/hr Sodium Chloride (1/2 Normal Saline) 1,000 mls @ 50 mls/hr IV ASDIR [facility] Stop: 08/22/16 08:39 Last Admin: 08/21/16 10:35 Dose: 50 mls/hr Insulin Aspart (Novolog Vial Sliding Scale -) 1 vial SQ ACHS [facility] PRN Reason: Protocol Last Admin: 08/21/16 23:39 Dose: 8 units Insulin Detemir (Levemir Vial) 10 units SQ HS [facility] Last Admin: 08/21/16 22:00 Dose: 10 units Methimazole (Tapazole -) 15 mg PO TID [facility] Last Admin: 08/21/16 23:38 Dose: 15 mg Methylprednisolone Sodium Succinate (Solu-Medrol -) 40 mg IVPB DAILY [facility] Last Admin: 08/21/16 10:37 Dose: 40 mg Nortriptyline HCl (Pamelor -) 30 mg PO HS [facility] Last Admin: 08/21/16 22:00 Dose: 30 mg Ygdwe-8-Xpsw Ethyl Esters (Lovaza -) 2 gm PO BID [facility] Last Admin: 08/21/16 23:39 Dose: 2 gm Polyethylene Glycol (Miralax (For Daily Use) -) 17 gm PO BID [facility] Last Admin: 08/21/16 23:40 Dose: 17 grams Fluticasone/Salmeterol (Advair 100mcg/50mcg -) 1 puff IH BID [facility] Last Admin: 08/21/16 22:00 Dose: 1 puff Sotalol HCl (Betapace -) 120 mg PO BID [facility] Last Admin: 08/21/16 23:38 Dose: 120 mg Review of Systems Constitutional: denies: chills, fever Cardiovascular: As noted above Respiratory: reports: cough Gastrointestinal: denies: nausea, vomiting, diarrhea, constipation or abdominal pain Genitourinary: No symptoms reported Musculoskeletal: No symptoms reported - Objective Vital Signs: Last Vital Signs Temp Pulse Resp BP Pulse Ox 97.7 F 68 20 104/55 98 08/22/16 02:00 08/22/16 02:00 08/22/16 02:00 08/22/16 02:00 08/21/16 21:00 Neck: Supple Negative JVD No Bruit Cardiovascular: S1 S2 Regular Rate and Rhythm Respiratory: Scattered Rhonchi Bilaterally with Diminished Breath Sounds at the Bases Gastrointestinal: Soft Benign Normal Bowel Sounds Edema: No Labs: CBC, BMP 08/21/16 05:35 08/21/16 05:35 Assessment/Plan ASSESSMENT: 1. Hypercapeniec respiratory failure related to COPD/emphysema exacerbation, resolving 2. Paroxysmal atrial fibrillation currently in sinus rhythm [id number] score of 7 on NOAC's 3. Diastolic LV dysfunction with chronic class II NYHA classification LV failure , compensated 4. CAD non obstructive CAD angina pectoris 4. HTN 5. NIDDM 6. Hyperlipidemia 7. Parkinson's disease 8. Hyperthyroidism 9. History of gastritis - gastric AVM post cautery 10. Anemia 11. Pre-renal azotemia 12. Hydronephrosis, related to bladder retention 13. Hypernatremia PLAN: 1. Continue Sotalol at the current dosage with close monitoring of QTc interval 2. Continue Cardizem CD 3. Remains off of Diovan and Lasix therapies, to be resumed once pre-renal azotemia and Hypernatremia resolves 4. Continue A/C with Eliquis with caution considering the above noted history of anemia and GI bleed (correct dose Wt. < 60 Kg and age > 80) 5. Bronchodilators and steroids as per primary team 6. Monitor CBC and transfuse as needed to maintain Hg equal or > 8.0 Overall poor prognosis Bernie Sharif MD
[2016-08-22] MEDS: METHIMAZOLE 5 MG TABLET (FP) PO SCH ×3 (06:46→23:07)
[2016-08-22] MEDS: INSULIN SLIDING SCALE (NOVOLOG) 1 VIAL SQ SCH ×4 (06:47→23:06)
--- NOTE | 2016-08-22 08:56 | PN ---
Physical Exam: SUBJECTIVE: Patient seen and examined c/o of diffuse abdominal pain, with nausea. OBJECTIVE: Vital Signs Period Temp Pulse Resp BP Sys/Pinedo Pulse Ox Last 24 Hr 97 F-98.2 F 68-89 18-20 100-126/53-68 95-98 GENERAL: The patient is awake, alert, and NAD EYES: extraocular movements intact ENT: nares patent, on nasal cannula 3lpm, mucus membranes dry NECK: Trachea midline, full range of motion, supple. LUNGS: wheezing in right, rhonchi b/l HEART: afib, S1, S2. no murmurs. rate controlled. ABDOMEN: Soft, distended, mild tenderness in LLQ and epigastrium with palpation , firmness noted in LLQ, normoactive bowel sounds EXTREMITIES: 2+ pulses, warm, well-perfused, no edema. NEUROLOGICAL: Normal speech. PSYCH: Flat affect, appears distant. nonconversant. Manning in place, clear yellow urine Sacram with unstagable ulcer with eschar. Multiple ulcers around b/l buttox and at gluteal folds. Laboratory Results - last 24 hr 08/20/16 08/20/16 08/21/16 22:20 22:21 11:47 POC Glucometer 500 496 271 08/21/16 08/21/16 08/22/16 15:41 23:37 05:59 POC Glucometer 217 368 146 Active Medications Generic Name Dose Route Start Last Admin Trade Name Freq PRN Reason Stop Dose Admin Acetylcysteine 200 mg 08/21/16 12:00 08/22/16 06:35 Mucomyst 20 Oral / Inh Use Only* NEB 200 mg QIDR MICHAEL Administration Albuterol Sulfate 1 amp 08/21/16 12:00 08/22/16 06:35 Ventolin 0.083% Nebulizer Soln - NEB 1 amp QIDR MICHAEL Administration Apixaban 2.5 mg 08/20/16 22:00 08/21/16 23:38 Eliquis - PO 2.5 mg BID [facility] Administration Atorvastatin Calcium 10 mg 08/09/16 22:00 08/21/16 23:39 Lipitor - PO 10 mg HS [facility]EL Administration Diltiazem HCl 120 mg 08/16/16 18:20 08/21/16 10:25 Cardizem Cd - PO Not Given DAILY MICHAEL Piperacillin Sod/Tazobactam Sod 50 mls @ 100 mls/hr 08/17/16 13:35 08/22/16 02: 00 Zosyn 3.375gm Ivpb (Pre-Docked) IVPB 100 mls/hr Q8H-IV [facility] Administration Insulin Aspart 1 vial 08/13/16 11:00 08/22/16 06:47 Novolog Vial Sliding Scale - SQ Not Given ACHS [facility] Protocol Insulin Detemir 10 units 08/21/16 15:43 08/21/16 22:00 Levemir Vial SQ 10 units HS [facility] Administration Methimazole 15 mg 08/09/16 22:00 08/22/16 06:46 Tapazole - PO 15 mg TID [facility] Administration Methylprednisolone Sodium Succinate 40 mg 08/19/16 10:00 08/21/16 10:37 Solu-Medrol - IVPB 40 mg DAILY [facility] Administration Nortriptyline HCl 30 mg 08/09/16 22:00 08/21/16 22:00 Pamelor - PO 30 mg HS [facility] Administration Hauzo-0-Fhrv Ethyl Esters 2 gm 08/09/16 22:00 08/21/16 23:39 Lovaza - PO 2 gm BID [facility] Administration Polyethylene Glycol 17 gm 08/17/16 22:00 08/21/16 23:40 Miralax (For Daily Use) - PO 17 grams BID [facility] Administration Fluticasone/Salmeterol 1 puff 08/16/16 10:00 08/21/16 22:00 Advair 100mcg/50mcg - IH 1 puff BID [facility]EL Administration Sotalol HCl 120 mg 08/20/16 15:01 08/21/16 23:38 Betapace - PO 120 mg BID [facility] Administration ASSESSMENT/PLAN: 86 yr old woman with multiple co-morbidities BIBEMS from [facility] for difficulty breathing, was found to be in rapid Afib in the ED admitted for sepsis likely from pna, rapid Afib, and hypoxia/respiratory distress. Found to have urinary retention, right hydronephrosis, episodes of hypotension, hypoxia requiring Bipap. - prognosis poor - black tarry stool with abdominal pain, fecal occult positive #Upper Gi bleed likely- FOBT positive with black tarry stools - ppi drip, npo - transfuse if <8.0, give lasix with transfusion to avoid fluid overload. - hgb currently 8.2, repeat 9pm and 2am #Afib, persistent - rate controlled today - sotalol 120mg po bid - hold if BP<95 systolic - cardizem 120mg po - hold if BP systolic <100 - abixapan 2.5mg po bid #Pneumonia (strep positive) - leucocytosis continuing to improve, however Chest xray now with white out of left lung, worsening. - zosyn 3.375gm q8hr --start 08/17 - rocephin 1gm iv daily --start 08/10 - stopped 08/17 #Hydronephrosis - manning in place draining clear yellow urine - if family decides on further medical intervention, will consult urology - d/c flomax given low BP #Respiratory distress/hypoxia, - Improved - nasal cannula continuous - duonebs q4 prn - prednisone 40mg QD - Maintain HOB >30 to reduce aspiration risk and maintain airway and respiration , she does not tolerate laying flat. #DM - uncontrolled - levemir 10u subq HS - novolog sliding scale - BGM ACHS #HTN/CHF - metoprolol tart 5mg IVPush q4h prn - diovan 80m g po daily - hold arb given recent dehydration #CAD - atorvastatin 10mg HS po - lovaza 2gm po BID #Hyperthyroidism -methiazole 15mg po TID #deconditioning, PT in bed #Flat affect - will continue to assess mood - nortryptiline 30mg po daily #Diet: diabetic/low sodium #DVT prophylaxis - on anticoagulation, eliquis code status: DNR/DNI Visit type - Emergency Visit Emergency Visit: No - New Patient This patient is new to me today: No - Critical Care Critical Care patient: No - Discharge Referral Referred to [facility] No
[2016-08-22] MEDS: SOTALOL HCL 80 MG TABLET (FP) PO SCH ×2 (09:04→23:05)
[2016-08-22] MEDS: OMEGA-3 ACID ETHYL ESTERS (FATTY-ACIDS) 1 GM CAPSULE (FP) PO SCH ×3 (09:04→23:05)
[2016-08-22] MEDS: APIXABAN 2.5 MG TABLET PO SCH (09:04)
[2016-08-22] MEDS: POLYETHYLENE GLYCOL 3350 119 GM BTL PO SCH ×2 (09:04→23:06)
[2016-08-22] MEDS: FLUTICASONE/SALMETEROL 100 MCG/50 MCG DISKUS IH SCH ×2 (09:04→23:05)
[2016-08-22] MEDS: methylPREDNISolone NA SUCC 40 MG/1 ML VIAL IVPB SCH (09:05)
[2016-08-22] MEDS ORDERED: SODIUM PHOSPHATE/NA BIPHOS 133 ML ENEMA PR ONE (11:31)
[2016-08-22] MEDS ORDERED: BISACODYL 10 MG SUPP.RECT RC PRN (12:43)
[2016-08-22] MEDS ORDERED: LACTULOSE 20 GM/30 ML UDC (FOR ORAL USE ONLY) PO ONE (12:43)
[2016-08-22] MEDS ORDERED: MAGNESIUM CITRATE 300 ML BOTTLE PO ONE (12:44)
[2016-08-22] MEDS ORDERED: ACETAMINOPHEN 325 MG TABLET (FP) PO ONE (14:09)
--- NOTE | 2016-08-22 14:22 | PN ---
Teaching Attending Note Name of Resident: Deon Starks ATTENDING PHYSICIAN STATEMENT I saw and evaluated the patient. I reviewed the resident's note and discussed the case with the resident. I agree with the resident's findings and plan as documented. SUBJECTIVE: seen at 9 am . No fever or chills, denies CP or SOB. she complains of ABd pain in LLQ. OBJECTIVE: NAD , Awake , pleasant, and cooperative . CV:reg RR. rate in 70s Lungs : Clear R lung. decreased breath sounds at L lung field Abd : soft, TTP in LLQ , tympany , no rebound tenderness or guarding, slightly distended Ext : no edema Manning in ASSESSMENT AND PLAN: 86 yr old woman with h/o CAD , Diastolic CHF , HTN, P Afib , and other medical problems who presented with SOB , she was diagnosed with acute COPD exacerbation , in the setting of LLL PNA. 1- LLL CAP : with worsening infiltrate and atelectasis , possibly due to mucous plugging - cont zosyn - US of the L hemithorax tshowed small pleural effusion . will not drain - continue Chest PT , and Mucomyst - Repeat Cxray today reviewed. - Will discuss possibility of bronchoscopy after palliative care meeting tomorrow 2- Acute Copd exa : change steroids to prednisone and continue taper Cont Nebs cont Advair. 3- Abd pain : likely due to constipation . But Abd is ditended. KUB with no ileus . COnt bowel regimen. if pain does not improve, will get CT scan of abd 4- H/o Diastolic CHF ,echo in . lasix on hold due to dehydration. 5- P Afib : in sinus rhythm now . cont sotalol , and cardizem . cont eliquis 6- R hydronephrosis: due to chronic urinary retention and chronic reflux . - cont manning - follow urine cx (with yeast like organisms ) 7- dispo : HLOC DNR/DNI Family meeting with palliative care to be scheduled likely tomorrow
--- NOTE | 2016-08-22 14:31 | PN ---
Progress Note, Physician History of Present Illness: Awake, moaning in discomfort secondary to abdominal pain Breathing non-labored on nasal cannula Low grade temp - Current Medication List Current Medications: Active Medications Acetylcysteine (Mucomyst 20 Oral / Inh Use Only*) 200 mg NEB QIDR [facility] Last Admin: 08/22/16 11:04 Dose: 200 mg Albuterol Sulfate (Ventolin 0.083% Nebulizer Soln -) 1 amp NEB QIDR [facility] Last Admin: 08/22/16 11:04 Dose: 1 amp Apixaban (Eliquis -) 2.5 mg PO BID [facility] Last Admin: 08/22/16 09:04 Dose: 2.5 mg Atorvastatin Calcium (Lipitor -) 10 mg PO HS [facility] Last Admin: 08/21/16 23:39 Dose: 10 mg Bisacodyl (Dulcolax Suppository -) 10 mg RC PRN PRN PRN Reason: CONSTIPATION Diltiazem HCl (Cardizem Cd -) 120 mg PO DAILY [facility] Last Admin: 08/22/16 09:04 Dose: 120 mg Piperacillin Sod/Tazobactam Sod (Zosyn 3.375gm Ivpb (Pre-Docked)) 50 mls @ 100 mls/hr IVPB Q8H-IV [facility] Last Admin: 08/22/16 09:05 Dose: 100 mls/hr Insulin Aspart (Novolog Vial Sliding Scale -) 1 vial SQ ACHS [facility] PRN Reason: Protocol Last Admin: 08/22/16 12:13 Dose: 8 units Insulin Detemir (Levemir Vial) 10 units SQ [facility] Last Admin: 08/21/16 22:00 Dose: 10 units Methimazole (Tapazole -) 15 mg PO TID [facility] Last Admin: 08/22/16 13:57 Dose: 15 mg Methylprednisolone Sodium Succinate (Solu-Medrol -) 40 mg IVPB DAILY [facility] Last Admin: 08/22/16 09:05 Dose: 40 mg Nortriptyline HCl (Pamelor -) 30 mg PO HS [facility] Last Admin: 08/21/16 22:00 Dose: 30 mg Oqwor-5-Wnlu Ethyl Esters (Lovaza -) 2 gm PO BID [facility] Last Admin: 08/22/16 09:14 Dose: Not Given Polyethylene Glycol (Miralax (For Daily Use) -) 17 gm PO BID [facility] Last Admin: 08/22/16 09:04 Dose: 17 grams Fluticasone/Salmeterol (Advair 100mcg/50mcg -) 1 puff IH BID [facility] Last Admin: 08/22/16 09:04 Dose: 1 puff Sotalol HCl (Betapace -) 120 mg PO BID [facility] Last Admin: 08/22/16 09:04 Dose: 120 mg - Objective Vital Signs: Vital Signs Temperature 98.1 F 08/22/16 10:00 Pulse Rate 66 08/22/16 10:31 Respiratory Rate 20 08/22/16 10:00 Blood Pressure 154/59 08/22/16 10:00 O2 Sat by Pulse Oximetry (%) 97 08/22/16 10:31 Constitutional: Yes: No Distress Cardiovascular: Yes: Regular Rate and Rhythm, S1, S2 Respiratory: Yes: Diminished Gastrointestinal: Yes: Soft, Tenderness, Other (+BS abdomen distended, tympanitic + periumbilical tenderness elicied no rebound/ rigidity) Edema: Yes Labs: CBC, BMP 08/21/16 05:35 08/21/16 05:35 INR, PTT INR 1.17 (0.82-1.09) H 08/09/16 09:30 Assessment/Plan Pneumococcal pneumonia Opacified hemithorax, likely mucus plug COPD exacerbation Afib Continue zosyn Would consider CT abdo/pelvis, GI evaluation
[2016-08-22] MEDS ORDERED: PT OWN MED DRAWER 7, Y5N ONE ×2 (15:10→22:58)
--- NOTE | 2016-08-22 15:27 | PN ---
Progress Note (short form) - Note Progress Note: PULMONARY Somnolent but arousable. CXR still with opacification of left hemithorax. No fevers recorded. Last Vital Signs Temp Pulse Resp BP Pulse Ox 98.4 F 63 20 112/57 97 08/22/16 14:48 08/22/16 14:48 08/22/16 14:48 08/22/16 14:48 08/22/16 10:31 Gen: weak appearing Heart: RRR Lung: distant breath sounds, no wheezes appreciated Abd: soft, nontender Ext: no edema CBC, BMP 08/21/16 05:35 08/21/16 05:35 Active Medications Acetylcysteine (Mucomyst 20 Oral / Inh Use Only*) 200 mg NEB QIDR [facility] Last Admin: 08/22/16 11:04 Dose: 200 mg Albuterol Sulfate (Ventolin 0.083% Nebulizer Soln -) 1 amp NEB QIDR [facility] Last Admin: 08/22/16 11:04 Dose: 1 amp Apixaban (Eliquis -) 2.5 mg PO BID [facility] Last Admin: 08/22/16 09:04 Dose: 2.5 mg Atorvastatin Calcium (Lipitor -) 10 mg PO HS [facility] Last Admin: 08/21/16 23:39 Dose: 10 mg Bisacodyl (Dulcolax Suppository -) 10 mg RC PRN PRN PRN Reason: CONSTIPATION Diltiazem HCl (Cardizem Cd -) 120 mg PO DAILY [facility] Last Admin: 08/22/16 09:04 Dose: 120 mg Piperacillin Sod/Tazobactam Sod (Zosyn 3.375gm Ivpb (Pre-Docked)) 50 mls @ 100 mls/hr IVPB Q8H-IV [facility] Last Admin: 08/22/16 09:05 Dose: 100 mls/hr Pantoprazole Sodium (Protonix 40mg Ivpb (Pre-Docked)) 100 mls @ 200 mls/hr IVPB ONCE ONE Stop: 08/22/16 15:59 Insulin Aspart (Novolog Vial Sliding Scale -) 1 vial SQ ACHS [facility] PRN Reason: Protocol Last Admin: 08/22/16 12:13 Dose: 8 units Insulin Detemir (Levemir Vial) 10 units SQ [facility] Last Admin: 08/21/16 22:00 Dose: 10 units Methimazole (Tapazole -) 15 mg PO TID [facility] Last Admin: 08/22/16 13:57 Dose: 15 mg Nortriptyline HCl (Pamelor -) 30 mg PO HS [facility] Last Admin: 08/21/16 22:00 Dose: 30 mg Kbctk-7-Rimn Ethyl Esters (Lovaza -) 2 gm PO BID [facility] Last Admin: 08/22/16 09:14 Dose: Not Given Polyethylene Glycol (Miralax (For Daily Use) -) 17 gm PO BID [facility] Last Admin: 08/22/16 09:04 Dose: 17 grams Prednisone (Deltasone -) 30 mg PO DAILY [facility] Fluticasone/Salmeterol (Advair 100mcg/50mcg -) 1 puff IH BID [facility] Last Admin: 08/22/16 09:04 Dose: 1 puff Sotalol HCl (Betapace -) 120 mg PO BID [facility] Last Admin: 08/22/16 09:04 Dose: 120 mg A/P s/p Acute Hypoxic Respiratory Failure Pneumonia Left Atelectasis UTI Sepsis Atrial Fibrillation with RVR improving Acute on Chronic LV Diastolic Heart Failure CAD Acute COPD Exacerbation HTN DM Hypercholesterolemia Hyperthyroidism - continue antibiotics per ID - rate control on sotalol, cardizem - BiPAP as needed to assist in work of breathing - taper O2 to keep SpO2 >90% - continue medrol - glucose control - inhaled bronchodilators - monitor urine output, creatinine - PO as tolerated - DVT/GI prophylaxis - continue discussions regarding goals of care - am available for bronchoscopy for mucous plugging but pt will be at increased risk for prolonged intubation due to underlying medical issues Problem List - Problems (1) Acute on chronic respiratory failure with hypoxia and hypercapnia Code(s): J96.21 - ACUTE AND CHRONIC RESPIRATORY FAILURE WITH HYPOXIA J96.22 - ACUTE AND CHRONIC RESPIRATORY FAILURE WITH HYPERCAPNIA (2) Pneumonia Code(s): J18.9 - PNEUMONIA, UNSPECIFIED ORGANISM (3) UTI (urinary tract infection) Code(s): N39.0 - URINARY TRACT INFECTION, SITE NOT SPECIFIED Qualifiers: Qualified Code(s): N39.0 - Urinary tract infection, site not specified (4) Sepsis Code(s): A41.9 - SEPSIS, UNSPECIFIED ORGANISM Qualifiers: Qualified Code(s): A41.9 - Sepsis, unspecified organism (5) Atrial fibrillation with rapid ventricular response Code(s): I48.91 - UNSPECIFIED ATRIAL FIBRILLATION (6) Acute exacerbation of chronic obstructive pulmonary disease Code(s): J44.1 - CHRONIC OBSTRUCTIVE PULMONARY DISEASE W (ACUTE) EXACERBATION (7) Acute on chronic diastolic (congestive) heart failure Code(s): I50.33 - ACUTE ON CHRONIC DIASTOLIC (CONGESTIVE) HEART FAILURE (8) Coronary artery disease Code(s): I25.10 - ATHSCL HEART DISEASE OF [place] CORONARY ARTERY W/O ANG PCTRS Qualifiers: Qualified Code(s): I25.10 - Atherosclerotic heart disease of [place] coronary artery without angina pectoris (9) Diabetes Code(s): E11.9 - TYPE 2 DIABETES MELLITUS WITHOUT COMPLICATIONS Qualifiers: Qualified Code(s): E11.9 - Type 2 diabetes mellitus without complications (10) HTN (hypertension) Code(s): I10 - ESSENTIAL (PRIMARY) HYPERTENSION Qualifiers: Qualified Code(s): I10 - Essential (primary) hypertension (11) Hyperlipidemia Code(s): E78.5 - HYPERLIPIDEMIA, UNSPECIFIED Qualifiers: Qualified Code(s): E78.2 - Mixed hyperlipidemia
[2016-08-22] MEDS ORDERED: PANTOPRAZOLE SODIUM 100 ML IVPB ONE (15:30)
[2016-08-22] MEDS ORDERED: morphine CARPU-JECT 2 MG/1 ML DISP.SYRIN IVPUSH ONE (16:01)
[2016-08-22 16:02] LABS: CALCIUM 8.4 mg/dL (8.5-10.1); CREATININE 0.6 mg/dL (0.55-1.02)
[2016-08-22 17:19] LABS: BASOPHIL 0.1 % (0-2.0); MCH 21.6 pg (25.7-33.7); MCHC 29.4 g/dl (32.0-36.0); MEAN CELL VOLUME 73.6 fl (80-96); MEAN PLT VOLUME 9.8 fl (7.5-11.1); NEUTROPHILS 97.1 % (42.8-82.8); PLATELET COUNT 277 K/MM3 (134-434); RDW 27.5 % (11.6-15.6)
[2016-08-22 17:22] LABS: WHITE BLOOD COUNT 15.6 K/mm3 (4.0-10.0)
--- NOTE | 2016-08-22 17:30 | HOSP ---
Subjective - Review of Symptoms Events since last encounter: called patient was having melena and abd pain . Now abd pain is better than AM on exam : stable VS , HR 66 , SBP 112. NAD , awake and alert ABd : less distended than AM rectal exam : black soft stool coming out of rectum, no internal hemorrhoids felt . rectum filled with soft stool , possible soft tissue mass felt high in rectum . OB + A/P : Melena indicates Upper GI bleed , likely from gastritis in the setting of steroids use. last EGD by Dr. Severino, in 05/07 with gastritis , no ulcers . path report only includes specimen description , but no microscopic description. - upper GI bleed - possible rectal mass on rectal exam plan : - stat CBC - start PPI gtt - follow CBC q 4hr - spoke to daughter , Lore. She express her mom is not hospice. explained to her that EGD will be high risk procedure due to need of sedation which might affect her respiratory status in setting of L lung collapse , PNA and pleural effusion. - Dr. Rasmussen does not come here - will consult GI gynaecological oncologist - transfuse as needed for HB < 8 with careful attention to her volume status ( lasix with transfusion ) Physical Examination Vital Signs: Vital Signs Temperature 98.4 F 08/22/16 14:48 Pulse Rate 63 08/22/16 14:48 Respiratory Rate 20 08/22/16 14:48 Blood Pressure 112/57 08/22/16 14:48 O2 Sat by Pulse Oximetry (%) 97 08/22/16 10:31 Labs: CBC, BMP 08/22/16 15:25
[2016-08-22] MEDS ORDERED: FUROSEMIDE 40 MG/4 ML INJECTABLE VIAL IVPUSH ONE (18:21)
[2016-08-22] MEDS: PANTOPRAZOLE SODIUM 80 MG in SODIUM CHLORIDE 100 ML IVPB SCH (18:42)
[2016-08-22 21:22] LABS: MCH 21.6 pg (25.7-33.7); MCHC 29.7 g/dl (32.0-36.0); MEAN CELL VOLUME 72.9 fl (80-96); MEAN PLT VOLUME 9.2 fl (7.5-11.1); PLATELET COUNT 285 K/MM3 (134-434); RDW 27.6 % (11.6-15.6)
[2016-08-22 21:26] LABS: WHITE BLOOD COUNT 14.3 K/mm3 (4.0-10.0)
[2016-08-22 22:17] LABS: INR 1.19 (0.82-1.09); PROTHROMBIN TIME (PATIENT) 13.1 SEC (9.98-11.88)
[2016-08-22 22:19] LABS: ACTIVATED PTT 27.4 SECONDS (26.9-34.4)
--- NOTE | 2016-08-22 23:00 | PN ---
Progress Note (short form) - Note Progress Note: Patient seen, chart reviewed. This is a patient of Dr Severino. He does come to this hospital and is required to follow his patients here. He has made no arrangement with my practice to cover him on weekdays. I spoke with him this evening and he refused to see the patient here at [facility]. As such, I will see the patient in the interest of patient care. Jyoti Juarez
[2016-08-22] MEDS: ATORVASTATIN CA 10 MG TABLET (FP) PO SCH (23:05)
[2016-08-22] MEDS: INSULIN DETEMIR 100 UNITS/ML MDV SQ SCH (23:06)
[2016-08-22] MEDS: NORTRIPTYLINE HCL 10 MG CAPSULE PO SCH (23:07)
--- NOTE | 2016-08-22 23:27 | EKG ---
Test Reason : Blood Pressure : / mmHG Vent. Rate : 103 BPM Atrial Rate : 214 BPM P-R Int : 000 ms QRS Dur : 078 ms QT Int : 332 ms P-R-T Axes : 000 008 222 degrees QTc Int : 434 ms ATRIAL FIBRILLATION WITH RAPID VENTRICULAR RESPONSE WITH PREMATURE VENTRICULAR OR ABERRANTLY CONDUCTED COMPLEXES NONSPECIFIC ST AND T WAVE ABNORMALITY ABNORMAL ECG WHEN COMPARED WITH ECG OF 16-AUG-2016 10:29, ATRIAL FIBRILLATION HAS REPLACED SINUS RHYTHM T WAVE INVERSION NOW EVIDENT IN LATERAL LEADS Confirmed by NABOR PATEL MD ([id number]) on 08/22/2016 11:27:08 PM Referred By: Jody Confirmed By:NABOR PATEL MD
--- NOTE | 2016-08-23 00:33 | CON.GI ---
Consult Consult Specialty:: GI Referred by:: Hospitalist Reason for Consultation:: GI bleed - History of Present Illness Chief Complaint: Gi Bleed History of Present Illness: 86 F with h/o COPD, asthma, CHF, CAD, PAF, DM, HTN, HLD, Parkinsons, admitted with progressive dyspnea. She lives at home with family and has been having a productivce cough for the past few days. 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 HISTORY), CAD, HTN, Hyperlipdemia Pulmonary: Yes: COPD Gastrointestinal: Yes: GERD Musculoskeletal: Yes: Osteoarthritis Endocrine: Yes: Diabetes Mellitus - Alcohol/Substance Use Hx Alcohol Use: No - Smoking History Smoking history: Never smoked Have you smoked in the past 12 months: No If you are a former smoker, when did you quit?: 15 YRS - Social History History of Recent Travel: No Home Medications - Allergies Allergies/Adverse Reactions: Allergies Allergy/AdvReac Type Severity Reaction Status Date / Time No Known Allergies Allergy Verified 07/28/16 18:41 - Home Medications Home Medications: Ambulatory Orders Tiotropium [place] [Spiriva] 1 inh PO BID 07/19/14 Roflumilast [Daliresp -] 500 mcg PO DAILY #30 tablet 07/21/14 Metformin HCl 500 mg PO DAILY 05/09/15 Pregabalin [Lyrica -] 75 mg PO BID 05/09/15 Albuterol 0.083% Nebulizer Lisa [Ventolin 0.083% Nebulizer Soln -] 1 neb NEB BID 12/01/15 Aspirin [ASA -] 81 mg PO DAILY 04/18/16 Calcium Carbonate [Calcium] 500 mg PO BID 04/18/16 Escitalopram Oxalate [Lexapro -] 10 mg PO BID 04/18/16 Pantoprazole Sodium [Protonix] 40 mg PO DAILY 04/18/16 Pramipexole Di-HCl [Mirapex] 0.5 mg PO HS 04/18/16 Sucralfate [Carafate] 1 gm PO BID 04/18/16 [place]-3 Acid Ethyl Esters [Lovaza -] 2 gm PO BID cap 04/21/16 Benzonatate [Tessalon Perle -] 200 mg PO BID 05/04/16 Levalbuterol Tartrate [Xopenex Hfa] 15 gm IH DAILY PRN 05/04/16 Nortriptyline HCl [Pamelor -] 30 mg PO HS 05/04/16 Salmeterol/Fluticasone [Advair 100Mcg/50Mcg -] 1 inh PO BID 07/13/16 Atorvastatin Ca [Lipitor] 10 mg PO HS #30 tablet 07/16/16 Ferrous Sulfate [Feosol] 325 mg PO BIDWM #120 ud 07/16/16 Apixaban [Eliquis -] 2.5 mg PO BID #60 tablet 07/26/16 Methimazole [Tapazole -] 15 mg PO TID #90 tablet 07/26/16 Sotalol HCl [Betapace -] 80 mg PO BID #60 tablet 07/26/16 Insulin Glargine,Hum.rec.anlog [Lantus (nf)] 5 units SQ HS #1 vial 08/03/16 Insulin Sliding Scale [Novolog Vial Sliding Scale -] 1 vial SQ ACHS #30 units Prednisone See Taper PO BID #60 tablet 08/03/16 Methimazole [Tapazole] 10 mg PO TID 08/09/16 Nortriptyline HCl [Pamelor -] 10 mg PO HS 08/09/16 Pramipexole Di-HCl [Mirapex] 0.5 mg PO HS 08/09/16 Pregabalin [Lyrica] 75 mg PO DAILY 08/09/16 Physical Exam-GI Vital Signs: Vital Signs Temperature 96.0 F L 08/22/16 17:00 Pulse Rate 64 08/22/16 17:00 Respiratory Rate 20 08/22/16 17:00 Blood Pressure 111/60 08/22/16 17:00 O2 Sat by Pulse Oximetry (%) 97 08/22/16 22:30 Constitutional: Yes: Moderate Distress HENT: Yes: Normocephalic Neck: Yes: Supple Cardiovascular: Yes: Tachycardia Respiratory: Yes: Rales, Rhonchi, Other (on BIPAP) ...Palpate: Yes: Soft, Tenderness Labs: CBC, BMP 08/22/16 20:45 08/22/16 15:25 INR, PTT INR 1.19 (0.82-1.09) H 08/22/16 21:40 Imaging - Results Chest X-ray: Report Reviewed (Complete opacification of the L hemithorax) Assessment/Plan Patient appears pre-morbid. She has significant respiratory instability and is not a candidate for GI procedures at this time. She is currently DNR/DNI and would benefit from palliative care. Transfuse as needed should Hgb drop below 7.
[2016-08-23] MEDS: PIPERACILLIN/TAZOB 3.375 GM 50 ML IVPB SCH ×3 (01:13→18:27)
[2016-08-23 02:05] LABS: MCH 21.6 pg (25.7-33.7); MCHC 29.9 g/dl (32.0-36.0); MEAN CELL VOLUME 72.1 fl (80-96); MEAN PLT VOLUME 9.2 fl (7.5-11.1); PLATELET COUNT 271 K/MM3 (134-434); RDW 28.1 % (11.6-15.6); WHITE BLOOD COUNT 15.1 K/mm3 (4.0-10.0)
[2016-08-23] MEDS: PANTOPRAZOLE SODIUM 80 MG in SODIUM CHLORIDE 100 ML IVPB SCH ×2 (02:45→18:27)
[2016-08-23] MEDS: ALBUTEROL SO4 0.083% IH SOL 2.5 MG/3 ML VIAL.NEB. NEB SCH ×3 (06:25→18:52)
[2016-08-23] MEDS: ACETYLCYSTEINE 20% 200MG/ML 4 ML VIAL *FOR ORAL / INH USE ONLY NEB SCH ×3 (06:25→18:52)
[2016-08-23] MEDS: INSULIN SLIDING SCALE (NOVOLOG) 1 VIAL SQ SCH ×3 (06:27→18:27)
[2016-08-23] MEDS: METHIMAZOLE 5 MG TABLET (FP) PO SCH ×2 (06:27→18:27)
[2016-08-23 07:23] LABS: BASOPHIL 0.1 % (0-2.0); MCH 21.7 pg (25.7-33.7); MCHC 29.4 g/dl (32.0-36.0); MEAN CELL VOLUME 73.6 fl (80-96); MEAN PLT VOLUME 9.1 fl (7.5-11.1); PLATELET COUNT 244 K/MM3 (134-434); RDW 27.6 % (11.6-15.6); WHITE BLOOD COUNT 14.9 K/mm3 (4.0-10.0)
[2016-08-23 07:49] LABS: CALCIUM 8.4 mg/dL (8.5-10.1); CREATININE 0.5 mg/dL (0.55-1.02); MAGNESIUM 2.3 mg/dL (1.8-2.4); PHOSPHOROUS 2.3 mg/dL (2.5-4.9)
--- NOTE | 2016-08-23 07:56 | PN ---
Physical Exam: SUBJECTIVE: Patient seen and examined lethargic but arousable, on bipap. Denies chest pain, abdominal pain by nodding no. As per nursing she had hematochezia this morning. discussed GOC with Ms. Romero and Nuha(HCP) given GI bleed, left lung opacification, and hypoxia. Nuha has expressed interest in hospice, patient is already DNR/DNI. if possible will transfer home or arrange for inpatient hospice depending on patient's stability for transport in the morning. OBJECTIVE: Vital Signs Period Temp Pulse Resp BP Sys/Pinedo Pulse Ox Last 24 Hr 96.0 F-98.4 F 61-68 16-20 101-154/50-60 94-98 GENERAL: The patient is lethargic. nonverbal but appears to understand questions and denies pain. HEAD: Normal with no signs of trauma. EYES: PERRL, extraocular movements intact. ENT: Bipap in place, sat 94% NECK: Trachea midline, full range of motion, supple. LUNGS: Breath sounds coarse on right with rhonchi, no wheezing, left coarse breath sounds. HEART: irregular rate and rhythm, S1, S2 ABDOMEN: Soft, nontender, nondistended, normoactive bowel sounds EXTREMITIES: cool, well-perfused, trace edema R>left NEUROLOGICAL: easily arousable, able to nod yes or no to questions but not conversant. Manning in place with yellow urine mixed with blood Laboratory Results - last 24 hr 08/22/16 08/22/16 08/22/16 11:40 15:00 15:25 WBC 15.6 H RBC 3.79 Hgb 8.2 L Hct 27.9 L MCV 73.6 L MCHC 29.4 L RDW 27.5 H Plt Count 277 MPV 9.8 Neutrophils % 97.1 H Lymphocytes % 1.9 L D Monocytes % 0.9 L Eosinophils % 0.0 Basophils % 0.1 D INR PTT (Actin FS) Sodium Potassium Chloride Carbon Dioxide Anion Gap BUN Creatinine POC Glucometer 301 Random Glucose Calcium Stool Occult Blood Positive 08/22/16 08/22/16 08/22/16 15:25 17:37 20:45 WBC 14.3 H RBC 4.00 Hgb 8.7 L Hct 29.2 L MCV 72.9 L MCHC 29.7 L RDW 27.6 H Plt Count 285 MPV 9.2 Neutrophils % Lymphocytes % Monocytes % Eosinophils % Basophils % INR PTT (Actin FS) Sodium 143 Potassium 5.1 D Chloride 102 Carbon Dioxide 35 H Anion Gap 6 L BUN 28 H D Creatinine 0.6 POC Glucometer 168 Random Glucose 205 H D Calcium 8.4 L Stool Occult Blood 08/22/16 08/22/16 08/23/16 21:40 21:52 01:45 WBC 15.1 H RBC 3.91 Hgb 8.5 L Hct 28.2 L MCV 72.1 L MCHC 29.9 L RDW 28.1 H Plt Count 271 MPV 9.2 Neutrophils % Lymphocytes % Monocytes % Eosinophils % Basophils % INR 1.19 H PTT (Actin FS) 27.4 Sodium Potassium Chloride Carbon Dioxide Anion Gap BUN Creatinine POC Glucometer 213 Random Glucose Calcium Stool Occult Blood 08/23/16 08/23/16 05:35 06:22 WBC 14.9 H RBC 3.97 Hgb 8.6 L Hct 29.3 L MCV 73.6 L MCHC 29.4 L RDW 27.6 H Plt Count 244 MPV 9.1 Neutrophils % 92.0 H Lymphocytes % 4.6 L D Monocytes % 3.3 L D Eosinophils % 0.0 Basophils % 0.1 INR PTT (Actin FS) Sodium Potassium Chloride Carbon Dioxide Anion Gap BUN Creatinine POC Glucometer 182 Random Glucose Calcium Stool Occult Blood Active Medications Generic Name Dose Route Start Last Admin Trade Name Freq PRN Reason Stop Dose Admin Acetylcysteine 200 mg 08/21/16 12:00 08/23/16 06:25 Mucomyst 20 Oral / Inh Use Only* NEB 200 mg QIDR MICHAEL Administration Albuterol Sulfate 1 amp 08/21/16 12:00 08/23/16 06:25 Ventolin 0.083% Nebulizer Soln - NEB 1 amp QIDR MICHAEL Administration Apixaban 2.5 mg 08/20/16 22:00 08/22/16 09:04 Eliquis - PO 2.5 mg BID MICHAEL Administration Atorvastatin Calcium 10 mg 08/09/16 22:00 08/22/16 23:05 Lipitor - PO 10 mg HS MICHAEL Administration Bisacodyl 10 mg 08/22/16 12:43 Dulcolax Suppository - RC PRN PRN CONSTIPATION Diltiazem HCl 120 mg 08/16/16 18:20 08/22/16 09:04 Cardizem Cd - PO 120 mg DAILY MICHAEL Administration Piperacillin Sod/Tazobactam Sod 50 mls @ 100 mls/hr 08/17/16 13:35 08/23/16 01: 13 Zosyn 3.375gm Ivpb (Pre-Docked) IVPB 100 mls/hr Q8H-IV MICHAEL Administration Pantoprazole Sodium 80 mg/ 100 mls @ 10 mls/hr 08/22/16 16:15 08/23/16 02:45 Sodium Chloride IVPB 10 mls/hr Q10H MICHAEL Administration 8 MG/HR Insulin Aspart 1 vial 08/13/16 11:00 08/23/16 06:27 Novolog Vial Sliding Scale - SQ 2 units ACHS MICHAEL Administration Protocol Insulin Detemir 10 units 08/21/16 15:43 08/22/16 23:06 Levemir Vial SQ 10 units HS MICHAEL Administration Methimazole 15 mg 08/09/16 22:00 08/23/16 06:27 Tapazole - PO 15 mg TID MICHAEL Administration Nortriptyline HCl 30 mg 08/09/16 22:00 08/22/16 23:07 Pamelor - PO 30 mg HS MICHAEL Administration Pxgvt-7-[id number] Ethyl Esters 2 gm 08/09/16 22:00 08/22/16 23:05 Lovaza - PO 2 gm BID MICHAEL Administration Polyethylene Glycol 17 gm 08/17/16 22:00 08/22/16 23:06 Miralax (For Daily Use) - PO 17 grams BID MICHAEL Administration Prednisone 30 mg 08/23/16 10:00 Deltasone - PO DAILY MICHAEL Fluticasone/Salmeterol 1 puff 08/16/16 10:00 08/22/16 23:05 Advair 100mcg/50mcg - IH 1 puff BID MICHAEL Administration Sotalol HCl 120 mg 08/20/16 15:01 08/22/16 23:05 Betapace - PO 120 mg BID MICHAEL Administration ASSESSMENT/PLAN: 86 yr old woman with multiple co-morbidities BIBEMS from [facility] for difficulty breathing, was found to be in rapid Afib in the ED admitted for sepsis likely from pna, rapid Afib, and hypoxia/respiratory distress. Found to have urinary retention, right hydronephrosis, episodes of hypotension, hypoxia requiring Bipap. - prognosis poor - GI consult for possible Upper GI bleed given black tarry FOBT stools, H/H stable but with hematochezia in the morning. appreciate Dr. Juarez's consideration. - 1 unit transfusion given with 40mg lasix 1/2 through transfusion to prevent fluid overload. - No blood work, no invasive procedures, comfort measures only. #Upper Gi bleed likely- FOBT positive with black tarry stools - ppi drip, npo, patient can eat if family decides eating is comfort measure. - given 1 unit prbc's to help with dyspnea - cautious with fluid to avoid fluid overload. #Afib, persistent - rate controlled today - sotalol 120mg po bid - hold if BP<95 systolic - cardizem 120mg po - hold if BP systolic <100 - abixapan 2.5mg po bid - held due to GI bleed #Respiratory distress/hypoxia, - Improved - Bipap continous, will see if she can be weaned down as she required 100% to achieve the ABG this morning of 94.2 and pulse ox of 89%. - duonebs q4 prn - prednisone 40mg QD - Maintain HOB >30 to reduce aspiration risk and maintain airway and respiration , she does not tolerate laying flat. #Pneumonia (strep positive) - leucocytosis improved - no further testing - zosyn 3.375gm q8hr - continue --start 08/17 - rocephin 1gm iv daily --start 08/10 - stopped 08/17 #Hydronephrosis - manning in place draining clear yellow urine mixed with blood - d/c flomax given low BP #DM - uncontrolled - levemir 10u subq HS - held while NPO - novolog sliding scale - BGM ACHS #HTN/CHF - metoprolol tart 5mg IVPush q4h prn - diovan 80m g po daily - hold arb given recent dehydration #CAD - atorvastatin 10mg HS po - lovaza 2gm po BID #Hyperthyroidism -methiazole 15mg po TID #deconditioning, PT in bed #Flat affect - nortryptiline 30mg po daily #Diet: diabetic/low sodium -NPO due to bipap use/GI bleed. #DVT prophylaxis - patient has been made comfort measures. code status: DNR/DNI Visit type - Emergency Visit Emergency Visit: No - New Patient This patient is new to me today: No - Critical Care Critical Care patient: No - Discharge Referral Referred to [facility] Med [facility].C.: No
[2016-08-23] MEDS ORDERED: ALBUTEROL SO4 2.5/IPRATROPIUM 0.5 INH SOL 3 ML VIAL.NEB. NEB ONE (08:45)
--- NOTE | 2016-08-23 08:49 | PN ---
Teaching Attending Note Name of Resident: Deon Starks ATTENDING PHYSICIAN STATEMENT I saw and evaluated the patient. I reviewed the resident's note and discussed the case with the resident. I agree with the resident's findings and plan as documented. SUBJECTIVE: Patient is on Bipap with o2 sat.of 85 on 50% . Otherwise , patient denies any shortness of breath, no chest pain, no palpitations. No nausea or vomiting. OBJECTIVE: Vital Signs Temperature 97 F L 08/23/16 06:00 Pulse Rate 67 08/23/16 06:00 Respiratory Rate 16 08/23/16 06:00 Blood Pressure 101/50 08/23/16 06:00 O2 Sat by Pulse Oximetry (%) 97 08/23/16 06:20 GENERAL: The patient is awake, alert, and NAD EYES: extraocular movements intact ENT: on bipap now 100% , mucus membranes dry NECK: Trachea midline, full range of motion, supple. LUNGS: decreased breath sounds BL HEART: afib rate controlled. S1, S2. MANISHA 2/6 ABDOMEN: Soft, ND, No tenderness , normoactive bowel sounds EXTREMITIES: 2+ pulses, warm, well-perfused, no edema. NEUROLOGICAL: Normal speech. alert , awake, Cn2-12 grossly intact Skin: Decubitus Ulcer with eschar unstageable. Multiple ulcers around b/l buttock and gluteal folds. : Clifford catheter bloody CBCD WBC 14.9 K/mm3 (4.0-10.0) H 08/23/16 05:35 RBC 3.97 M/mm3 (3.60-5.2) 08/23/16 05:35 Hgb 8.6 GM/dL (10.7-15.3) L 08/23/16 05:35 Hct 29.3 % (32.4-45.2) L 08/23/16 05:35 MCV 73.6 fl (80-96) L 08/23/16 05:35 MCHC 29.4 g/dl (32.0-36.0) L 08/23/16 05:35 RDW 27.6 % (11.6-15.6) H 08/23/16 05:35 Plt Count 244 K/MM3 (134-434) 08/23/16 05:35 MPV 9.1 fl (7.5-11.1) 08/23/16 05:35 CMP Sodium 143 mmol/L (136-145) 08/23/16 05:35 Potassium 4.2 mmol/L (3.5-5.1) 08/23/16 05:35 Chloride 96 mmol/L (98-107) L 08/23/16 05:35 Carbon Dioxide 40 mmol/L (21-32) H 08/23/16 05:35 Anion Gap 7 (8-16) L 08/23/16 05:35 BUN 28 mg/dL (7-18) H 08/23/16 05:35 Creatinine 0.5 mg/dL (0.55-1.02) L 08/23/16 05:35 Creat Clearance w eGFR > 60 (>60) 08/14/16 05:00 Random Glucose 168 mg/dL (74-106) H 08/23/16 05:35 Calcium 8.4 mg/dL (8.5-10.1) L 08/23/16 05:35 Total Bilirubin 0.3 mg/dL (0.2-1.0) 08/14/16 05:00 AST 20 U/L (15-37) 08/14/16 05:00 ALT 30 U/L (12-78) D 08/14/16 05:00 Alkaline Phosphatase 71 U/L (45-117) 08/14/16 05:00 Total Protein 5.2 g/dl (6.4-8.2) L 08/14/16 05:00 Albumin 2.0 g/dl (3.4-5.0) L 08/14/16 05:00 CARDIAC ENZYMES Creatine Kinase 19 IU/L (26-192) L 08/11/16 05:35 Troponin I 0.04 ng/ml (0.00-0.05) 08/16/16 10:23 Current Medications Generic Name Dose Route Start Last Admin Trade Name Freq PRN Reason Stop Dose Admin Acetylcysteine 200 mg 08/21/16 12:00 08/23/16 06:25 Mucomyst 20 Oral / Inh Use Only* NEB 200 mg QIDR MICHAEL Administration Albuterol Sulfate 1 amp 08/21/16 12:00 08/23/16 06:25 Ventolin 0.083% Nebulizer Soln - NEB 1 amp QIDR MICHAEL Administration Apixaban 2.5 mg 08/20/16 22:00 08/22/16 09:04 Eliquis - PO 2.5 mg BID MICHAEL Administration Atorvastatin Calcium 10 mg 08/09/16 22:00 08/22/16 23:05 Lipitor - PO 10 mg HS MICHAEL Administration Bisacodyl 10 mg 08/22/16 12:43 Dulcolax Suppository - RC PRN PRN CONSTIPATION Diltiazem HCl 120 mg 08/16/16 18:20 08/22/16 09:04 Cardizem Cd - PO 120 mg DAILY MICHAEL Administration Piperacillin Sod/Tazobactam Sod 50 mls @ 100 mls/hr 08/17/16 13:35 08/23/16 01: 13 Zosyn 3.375gm Ivpb (Pre-Docked) IVPB 100 mls/hr Q8H-IV MICHAEL Administration Pantoprazole Sodium 80 mg/ 100 mls @ 10 mls/hr 08/22/16 16:15 08/23/16 02:45 Sodium Chloride IVPB 10 mls/hr Q10H MICHAEL Administration 8 MG/HR Insulin Aspart 1 vial 08/13/16 11:00 08/23/16 06:27 Novolog Vial Sliding Scale - SQ 2 units ACHS MICHAEL Administration Protocol Insulin Detemir 10 units 08/21/16 15:43 08/22/16 23:06 Levemir Vial SQ 10 units HS MICHAEL Administration Methimazole 15 mg 08/09/16 22:00 08/23/16 06:27 Tapazole - PO 15 mg TID MICHAEL Administration Nortriptyline HCl 30 mg 08/09/16 22:00 08/22/16 23:07 Pamelor - PO 30 mg HS MICHAEL Administration [id number]-7-[id number] Ethyl Esters 2 gm 08/09/16 22:00 08/22/16 23:05 Lovaza - PO 2 gm BID MICHAEL Administration Polyethylene Glycol 17 gm 08/17/16 22:00 08/22/16 23:06 Miralax (For Daily Use) - PO 17 grams BID MICHAEL Administration Prednisone 30 mg 08/23/16 10:00 Deltasone - PO DAILY MICHAEL Fluticasone/Salmeterol 1 puff 08/16/16 10:00 08/22/16 23:05 Advair 100mcg/50mcg - IH 1 puff BID MICHAEL Administration Sotalol HCl 120 mg 08/20/16 15:01 08/22/16 23:05 Betapace - PO 120 mg BID MICHAEL Administration Current Medications Generic Name Dose Route Start Last Admin Trade Name Freq PRN Reason Stop Dose Admin Acetylcysteine 200 mg 08/21/16 12:00 08/23/16 06:25 Mucomyst 20 Oral / Inh Use Only* NEB 200 mg QIDR MICHAEL Administration Albuterol Sulfate 1 amp 08/21/16 12:00 08/23/16 06:25 Ventolin 0.083% Nebulizer Soln - NEB 1 amp QIDR MICHAEL Administration Apixaban 2.5 mg 08/20/16 22:00 08/22/16 09:04 Eliquis - PO 2.5 mg BID MICHAEL Administration Atorvastatin Calcium 10 mg 08/09/16 22:00 08/22/16 23:05 Lipitor - PO 10 mg HS MICHAEL Administration Bisacodyl 10 mg 08/22/16 12:43 Dulcolax Suppository - RC PRN PRN CONSTIPATION Diltiazem HCl 120 mg 08/16/16 18:20 08/22/16 09:04 Cardizem Cd - PO 120 mg DAILY MICHAEL Administration Piperacillin Sod/Tazobactam Sod 50 mls @ 100 mls/hr 08/17/16 13:35 08/23/16 01: 13 Zosyn 3.375gm Ivpb (Pre-Docked) IVPB 100 mls/hr Q8H-IV MICHAEL Administration Pantoprazole Sodium 80 mg/ 100 mls @ 10 mls/hr 08/22/16 16:15 08/23/16 02:45 Sodium Chloride IVPB 10 mls/hr Q10H MICHAEL Administration 8 MG/HR Insulin Aspart 1 vial 08/13/16 11:00 08/23/16 06:27 Novolog Vial Sliding Scale - SQ 2 units ACHS MICHAEL Administration Protocol Insulin Detemir 10 units 08/21/16 15:43 08/22/16 23:06 Levemir Vial SQ 10 units HS MICHAEL Administration Methimazole 15 mg 08/09/16 22:00 08/23/16 06:27 Tapazole - PO 15 mg TID MICHAEL Administration Nortriptyline HCl 30 mg 08/09/16 22:00 08/22/16 23:07 Pamelor - PO 30 mg HS MICHAEL Administration Aewvb-1-Eilg Ethyl Esters 2 gm 08/09/16 22:00 08/22/16 23:05 Lovaza - PO 2 gm BID MICHAEL Administration Polyethylene Glycol 17 gm 08/17/16 22:00 08/22/16 23:06 Miralax (For Daily Use) - PO 17 grams BID MICHAEL Administration Prednisone 30 mg 08/23/16 10:00 Deltasone - PO DAILY MICHAEL Fluticasone/Salmeterol 1 puff 08/16/16 10:00 08/22/16 23:05 Advair 100mcg/50mcg - IH 1 puff BID MICHAEL Administration Sotalol HCl 120 mg 08/20/16 15:01 08/22/16 23:05 Betapace - PO 120 mg BID MICHAEL Administration Medication Instructions Recorded Tiotropium [place] [Spiriva] 1 inh PO BID 07/19/14 Roflumilast [Daliresp -] 500 mcg PO DAILY #30 tablet 07/21/14 Metformin HCl 500 mg PO DAILY 05/09/15 Pregabalin [Lyrica -] 75 mg PO BID 05/09/15 Albuterol 0.083% Nebulizer Lisa 1 neb NEB BID 12/01/15 [Ventolin 0.083% Nebulizer Soln -] Aspirin [ASA -] 81 mg PO DAILY 04/18/16 Calcium Carbonate [Calcium] 500 mg PO BID 04/18/16 Escitalopram Oxalate [Lexapro -] 10 mg PO BID 04/18/16 Pantoprazole Sodium [Protonix] 40 mg PO DAILY 04/18/16 Pramipexole Di-HCl [Mirapex] 0.5 mg PO HS 04/18/16 Sucralfate [Carafate] 1 gm PO BID 04/18/16 [place]-3 Acid Ethyl Esters [Lovaza 2 gm PO BID cap 04/21/16 -] Benzonatate [Tessalon Perle -] 200 mg PO BID 05/04/16 Levalbuterol Tartrate [Xopenex Hfa] 15 gm IH DAILY PRN 05/04/16 Nortriptyline HCl [Pamelor -] 30 mg PO HS 05/04/16 Salmeterol/Fluticasone [Advair 1 inh PO BID 07/13/16 100Mcg/50Mcg -] Atorvastatin Ca [Lipitor] 10 mg PO HS #30 tablet 07/16/16 Ferrous Sulfate [Feosol] 325 mg PO BIDWM #120 ud 07/16/16 Apixaban [Eliquis -] 2.5 mg PO BID #60 tablet 07/26/16 Methimazole [Tapazole -] 15 mg PO TID #90 tablet 07/26/16 Sotalol HCl [Betapace -] 80 mg PO BID #60 tablet 07/26/16 Insulin Glargine,Hum.rec.anlog 5 units SQ HS #1 vial 08/03/16 [Lantus (nf)] Insulin Sliding Scale [Novolog 1 vial SQ ACHS #30 units 08/03/16 Vial Sliding Scale -] Prednisone See Taper PO BID #60 tablet 08/03/16 Methimazole [Tapazole] 10 mg PO TID 08/09/16 Nortriptyline HCl [Pamelor -] 10 mg PO HS 08/09/16 Pramipexole Di-HCl [Mirapex] 0.5 mg PO HS 08/09/16 Pregabalin [Lyrica] 75 mg PO DAILY 08/09/16 Microbiology 08/19/16 12:00 Urine - Urine Clean Catch Urine Culture - Final Yeast Like Organism 08/10/16 12:15 Nasopharyngeal Swab Respiratory Virus Panel - Preliminary 08/09/16 09:30 Blood - Peripheral Venous Blood Culture - Final NO GROWTH AFTER 5 DAYS INCUBATION 08/09/16 08:30 Blood - Peripheral Venous Blood Culture - Final NO GROWTH AFTER 5 DAYS INCUBATION 08/10/16 12:16 Urine For Antigen Detection Legionella Antigen - Final 08/10/16 12:16 Urine For Antigen Detection Streptococcus pneumoniae Antigen (M - Final 08/10/16 12:15 Nasopharyngeal Swab Influenza Types A,B Antigen (MATEUS) - Final 08/10/16 12:15 Nasopharyngeal Swab - Final 08/09/16 09:48 Urine - Urine - Catheterized Urine Culture - Final NO GROWTH OBTAINED ASSESSMENT AND PLAN: Patient is a 86 yr old woman with multiple co-morbidities BIBEMS from [facility] for difficulty breathing, was found to be in rapid Afib in the ED admitted for sepsis likely from pna, rapid Afib, and hypoxia/respiratory distress. # Acute Upper GI bleed; Melena most likely due to acute Gastritis due to steroids use. As per 's notes her last EGD by Dr. Severino, in 05/07 for gastritis without any ulcers . # Acute respiratory distress, hypoxemia on Bipap increased the 02 sat, will repeat ABG in 1 hr. # Bloody Urine ; will transfuse one unit of blood since patient is symptomatic, Proxy who is her daughter agreed for transfusion # Possible rectal mass as per 's rectal exam # Symptomatic anemia .will transfuse one unit since PRBC. - transfuse as needed for HB < 8 with careful attention to her volume status ( lasix with transfusion ) critical care time 35 minutes.
[2016-08-23] MEDS ORDERED: predniSONE 5 MG/5 ML ORAL SOLN- UNIT-DOSE CUP PO SCH (10:00)
[2016-08-23] MEDS: SOTALOL HCL 80 MG TABLET (FP) PO SCH (10:05)
--- NOTE | 2016-08-23 11:09 | PN ---
Progress Note (short form) - Note Progress Note: S: 86 year old female, history of COPD with hyperchaotic respiratory failure remains on BiPap, hypertension, hypertensive cardiovascular disease, non insulin dependent diabetes mellitus, hyperthyroidism, anemia, history of Parkinsonism, hypernatremia, hypercholesterolemia. Patient remains on BiPap. On questioning she nod's that she does not have chest discomfort, remains in sinus rhythm and hemodynamics are stable. Blood gases are pending. Patient has been having hematuria and ariane and Eliquis was discontinued. The hematuria is persisting. Active Medications Generic Name Dose Route Start Last Admin Trade Name Freq PRN Reason Stop Dose Admin Acetylcysteine 200 mg 08/21/16 12:00 08/23/16 06:25 Mucomyst 20 Oral / Inh Use Only* NEB 200 mg QIDR MICHAEL Administration Albuterol Sulfate 1 amp 08/21/16 12:00 08/23/16 06:25 Ventolin 0.083% Nebulizer Soln - NEB 1 amp QIDR MICHAEL Administration Apixaban 2.5 mg 08/20/16 22:00 08/22/16 09:04 Eliquis - PO 2.5 mg BID MICHAEL Administration Atorvastatin Calcium 10 mg 08/09/16 22:00 08/22/16 23:05 Lipitor - PO 10 mg HS MICHAEL Administration Bisacodyl 10 mg 08/22/16 12:43 Dulcolax Suppository - RC PRN PRN CONSTIPATION Diltiazem HCl 120 mg 08/16/16 18:20 08/22/16 09:04 Cardizem Cd - PO 120 mg DAILY MICHAEL Administration Piperacillin Sod/Tazobactam Sod 50 mls @ 100 mls/hr 08/17/16 13:35 08/23/16 10: 21 Zosyn 3.375gm Ivpb (Pre-Docked) IVPB 100 mls/hr Q8H-IV MICHAEL Administration Pantoprazole Sodium 80 mg/ 100 mls @ 10 mls/hr 08/22/16 16:15 08/23/16 02:45 Sodium Chloride IVPB 10 mls/hr Q10H MICHAEL Administration 8 MG/HR Insulin Aspart 1 vial 08/13/16 11:00 08/23/16 06:27 Novolog Vial Sliding Scale - SQ 2 units ACHS MICHAEL Administration Protocol Insulin Detemir 10 units 08/21/16 15:43 08/22/16 23:06 Levemir Vial SQ 10 units HS MICHAEL Administration Methimazole 15 mg 08/09/16 22:00 08/23/16 06:27 Tapazole - PO 15 mg TID MICHAEL Administration Nortriptyline HCl 30 mg 08/09/16 22:00 08/22/16 23:07 Pamelor - PO 30 mg HS MICHAEL Administration Lpjco-7-Imap Ethyl Esters 2 gm 08/09/16 22:00 08/22/16 23:05 Lovaza - PO 2 gm BID MICHAEL Administration Polyethylene Glycol 17 gm 08/17/16 22:00 08/22/16 23:06 Miralax (For Daily Use) - PO 17 grams BID MICHAEL Administration Prednisone 30 mg 08/23/16 10:00 Deltasone - PO DAILY MICHAEL Fluticasone/Salmeterol 1 puff 08/16/16 10:00 08/22/16 23:05 Advair 100mcg/50mcg - IH 1 puff BID MICHAEL Administration Sotalol HCl 120 mg 08/20/16 15:01 08/23/16 10:05 Betapace - PO 120 mg BID MICHAEL Administration O: 86 year old female, remains on BIPAP, currently is tachypnic. Last Vital Signs Temp Pulse Resp BP Pulse Ox 97 F L 67 16 101/50 97 08/23/16 06:00 08/23/16 06:00 08/23/16 06:00 08/23/16 06:00 08/23/16 06:20 Neck: Supple, no JVD, positive HJR, carotids were equal and upstrokes were normal, no thyromegaly appreciated. Heart: PMI was in the 5th intercostal space, no heaves or thrills, heart sounds were obscured by coarse breath sounds. Lungs: Decrease breath sounds at the bases, coarse breath sounds anteriorly. Abdomen: Soft, nontender, no hepatosplenomegaly appreciated, and no palpable masses were felt. Extremities: No calf tenderness or dependent edema. CBC, BMP 08/23/16 05:35 08/23/16 05:35 Laboratory Results - last 24 hr 08/22/16 08/22/16 08/22/16 11:40 15:00 15:25 WBC 15.6 H RBC 3.79 Hgb 8.2 L Hct 27.9 L MCV 73.6 L MCHC 29.4 L RDW 27.5 H Plt Count 277 MPV 9.8 Neutrophils % 97.1 H Lymphocytes % 1.9 L D Monocytes % 0.9 L Eosinophils % 0.0 Basophils % 0.1 D INR PTT (Actin FS) Sodium Potassium Chloride Carbon Dioxide Anion Gap BUN Creatinine POC Glucometer 301 Random Glucose Calcium Phosphorus Magnesium Stool Occult Blood Positive Blood Type Antibody Screen Crossmatch 08/22/16 08/22/16 08/22/16 15:25 17:37 20:45 WBC 14.3 H RBC 4.00 Hgb 8.7 L Hct 29.2 L MCV 72.9 L MCHC 29.7 L RDW 27.6 H Plt Count 285 MPV 9.2 Neutrophils % Lymphocytes % Monocytes % Eosinophils % Basophils % INR PTT (Actin FS) Sodium 143 Potassium 5.1 D Chloride 102 Carbon Dioxide 35 H Anion Gap 6 L BUN 28 H D Creatinine 0.6 POC Glucometer 168 Random Glucose 205 H D Calcium 8.4 L Phosphorus Magnesium Stool Occult Blood Blood Type Antibody Screen Crossmatch 08/22/16 08/22/16 08/23/16 21:40 21:52 01:45 WBC 15.1 H RBC 3.91 Hgb 8.5 L Hct 28.2 L MCV 72.1 L MCHC 29.9 L RDW 28.1 H Plt Count 271 MPV 9.2 Neutrophils % Lymphocytes % Monocytes % Eosinophils % Basophils % INR 1.19 H PTT (Actin FS) 27.4 Sodium Potassium Chloride Carbon Dioxide Anion Gap BUN Creatinine POC Glucometer 213 Random Glucose Calcium Phosphorus Magnesium Stool Occult Blood Blood Type Antibody Screen Crossmatch 08/23/16 08/23/16 08/23/16 05:35 05:35 06:22 WBC 14.9 H RBC 3.97 Hgb 8.6 L Hct 29.3 L MCV 73.6 L MCHC 29.4 L RDW 27.6 H Plt Count 244 MPV 9.1 Neutrophils % 92.0 H Lymphocytes % 4.6 L D Monocytes % 3.3 L D Eosinophils % 0.0 Basophils % 0.1 INR PTT (Actin FS) Sodium 143 Potassium 4.2 Chloride 96 L Carbon Dioxide 40 H Anion Gap 7 L BUN 28 H Creatinine 0.5 L POC Glucometer 182 Random Glucose 168 H Calcium 8.4 L Phosphorus 2.3 L Magnesium 2.3 Stool Occult Blood Blood Type Antibody Screen Crossmatch 08/23/16 10:05 WBC RBC Hgb Hct MCV MCHC RDW Plt Count MPV Neutrophils % Lymphocytes % Monocytes % Eosinophils % Basophils % INR PTT (Actin FS) Sodium Potassium Chloride Carbon Dioxide Anion Gap BUN Creatinine POC Glucometer Random Glucose Calcium Phosphorus Magnesium Stool Occult Blood Blood Type O POSITIVE Antibody Screen Negative Crossmatch See Detail Impression: (1) Persistent hematuria and history of melena, most likely precipitated by anticoagulation. (2) Anemia Code(s): D64.9 - ANEMIA, UNSPECIFIED Qualifiers: Qualified Code(s): D64.9 - Anemia, unspecified (3) Acute on chronic respiratory failure with hypoxia and hypercapnia Code(s): J96.21 - ACUTE AND CHRONIC RESPIRATORY FAILURE WITH HYPOXIA J96.22 - ACUTE AND CHRONIC RESPIRATORY FAILURE WITH HYPERCAPNIA (4) Paroxysmal atrial fibrillation, currently in sinus rhythm Code(s): I48.0 - PAROXYSMAL ATRIAL FIBRILLATION (5) Diastolic dysfunction with chronic heart failure Code(s): I50.32 - CHRONIC DIASTOLIC (CONGESTIVE) HEART FAILURE (6) COPD (chronic obstructive pulmonary disease) Code(s): J44.9 - CHRONIC OBSTRUCTIVE PULMONARY DISEASE, UNSPECIFIED Qualifiers : Qualified Code(s): J43.2 - Centrilobular emphysema (7) History of Coronary artery disease Code(s): I25.10 - ATHSCL HEART DISEASE OF [place] CORONARY ARTERY W/O ANG PCTRS Qualifiers: Qualified Code(s): I25.10 - Atherosclerotic heart disease of [place] coronary artery without angina pectoris (8) Diabetes Mellitus Code(s): E11.9 - TYPE 2 DIABETES MELLITUS WITHOUT COMPLICATIONS Qualifiers: Qualified Code(s): E11.9 - Type 2 diabetes mellitus without complications (9) Melena, 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 Correction of hypernatremia. 2. Serial CBCs. 3. Follow up basic metabolic profile. Prognosis: Critical Attestation: Documentation prepared by Bassam Lee, acting as district medical examiner for Junior Puckett MD.
--- NOTE | 2016-08-23 11:12 | PN ---
Progress Note, Physician History of Present Illness: pulmonary more lethargic,tachypneic on bipap.+ black tarry stools - Current Medication List Current Medications: Active Medications Acetylcysteine (Mucomyst 20 Oral / Inh Use Only*) 200 mg NEB QIDR [facility] Last Admin: 08/23/16 06:25 Dose: 200 mg Albuterol Sulfate (Ventolin 0.083% Nebulizer Soln -) 1 amp NEB QIDR [facility] Last Admin: 08/23/16 06:25 Dose: 1 amp Apixaban (Eliquis -) 2.5 mg PO BID [facility] Last Admin: 08/22/16 09:04 Dose: 2.5 mg Atorvastatin Calcium (Lipitor -) 10 mg PO HS [facility] Last Admin: 08/22/16 23:05 Dose: 10 mg Bisacodyl (Dulcolax Suppository -) 10 mg RC PRN PRN PRN Reason: CONSTIPATION Diltiazem HCl (Cardizem Cd -) 120 mg PO DAILY [facility] Last Admin: 08/22/16 09:04 Dose: 120 mg Piperacillin Sod/Tazobactam Sod (Zosyn 3.375gm Ivpb (Pre-Docked)) 50 mls @ 100 mls/hr IVPB Q8H-IV [facility] Last Admin: 08/23/16 10:21 Dose: 100 mls/hr Pantoprazole Sodium 80 mg/ (Sodium Chloride) 100 mls @ 10 mls/hr IVPB Q10H MICHAEL PRN Reason: 8 MG/HR Last Admin: 08/23/16 02:45 Dose: 10 mls/hr Insulin Aspart (Novolog Vial Sliding Scale -) 1 vial SQ ACHS [facility] PRN Reason: Protocol Last Admin: 08/23/16 06:27 Dose: 2 units Insulin Detemir (Levemir Vial) 10 units SQ [facility] Last Admin: 08/22/16 23:06 Dose: 10 units Methimazole (Tapazole -) 15 mg PO TID [facility] Last Admin: 08/23/16 06:27 Dose: 15 mg Nortriptyline HCl (Pamelor -) 30 mg PO HS [facility] Last Admin: 08/22/16 23:07 Dose: 30 mg Xbtky-0-Ljei Ethyl Esters (Lovaza -) 2 gm PO BID [facility] Last Admin: 08/22/16 23:05 Dose: 2 gm Polyethylene Glycol (Miralax (For Daily Use) -) 17 gm PO BID [facility] Last Admin: 08/22/16 23:06 Dose: 17 grams Prednisone (Deltasone -) 30 mg PO DAILY [facility] Fluticasone/Salmeterol (Advair 100mcg/50mcg -) 1 puff IH BID [facility] Last Admin: 08/22/16 23:05 Dose: 1 puff Sotalol HCl (Betapace -) 120 mg PO BID [facility] Last Admin: 08/23/16 10:05 Dose: 120 mg - Objective Vital Signs: Vital Signs Temperature 97 F L 08/23/16 06:00 Pulse Rate 67 08/23/16 06:00 Respiratory Rate 16 08/23/16 06:00 Blood Pressure 101/50 08/23/16 06:00 O2 Sat by Pulse Oximetry (%) 97 08/23/16 06:20 Constitutional: Yes: Well Nourished, Moderate Distress Eyes: Yes: WNL HENT: Yes: WNL Neck: Yes: WNL Cardiovascular: Yes: Pulse Irregular, S1, S2 Respiratory: Yes: Diminished Gastrointestinal: Yes: Normal Bowel Sounds, Soft Extremities: Yes: WNL Edema: No Labs: CBC, BMP 08/23/16 05:35 08/23/16 05:35 INR, PTT INR 1.19 (0.82-1.09) H 08/22/16 21:40 Assessment/Plan A/P Pneumonia UTI Sepsis Atrial Fibrillation with RVR improving Acute on Chronic LV Diastolic Heart Failure likely rate related CAD Acute COPD Exacerbation HTN DM Hypercholesterolemia Hyperthyroidism GI bleed Atelectasis - antibiotics - transfuse - monitor h+h - Lasix - BiPAP PRN - O2 to keep SpO2 >90% - solumedrol - glucose control - inhaled bronchodilators - monitor urine output, creatinine - PO as tolerated - DVT/GI prophylaxis - chest x-ray - mucomyst - abg Problem List - Problems (1) Acute on chronic respiratory failure with hypoxia and hypercapnia Code(s): J96.21 - ACUTE AND CHRONIC RESPIRATORY FAILURE WITH HYPOXIA J96.22 - ACUTE AND CHRONIC RESPIRATORY FAILURE WITH HYPERCAPNIA (2) Pneumonia Code(s): J18.9 - PNEUMONIA, UNSPECIFIED ORGANISM (3) UTI (urinary tract infection) Code(s): N39.0 - URINARY TRACT INFECTION, SITE NOT SPECIFIED Qualifiers: Qualified Code(s): N39.0 - Urinary tract infection, site not specified (4) Sepsis Code(s): A41.9 - SEPSIS, UNSPECIFIED ORGANISM Qualifiers: Qualified Code(s): A41.9 - Sepsis, unspecified organism (5) Atrial fibrillation with rapid ventricular response Code(s): I48.91 - UNSPECIFIED ATRIAL FIBRILLATION (6) Acute exacerbation of chronic obstructive pulmonary disease Code(s): J44.1 - CHRONIC OBSTRUCTIVE PULMONARY DISEASE W (ACUTE) EXACERBATION (7) Acute on chronic diastolic (congestive) heart failure Code(s): I50.33 - ACUTE ON CHRONIC DIASTOLIC (CONGESTIVE) HEART FAILURE (8) Coronary artery disease Code(s): I25.10 - ATHSCL HEART DISEASE OF [place] CORONARY ARTERY W/O ANG PCTRS Qualifiers: Qualified Code(s): I25.10 - Atherosclerotic heart disease of [place] coronary artery without angina pectoris (9) Diabetes Code(s): E11.9 - TYPE 2 DIABETES MELLITUS WITHOUT COMPLICATIONS Qualifiers: Qualified Code(s): E11.9 - Type 2 diabetes mellitus without complications (10) HTN (hypertension) Code(s): I10 - ESSENTIAL (PRIMARY) HYPERTENSION Qualifiers: Qualified Code(s): I10 - Essential (primary) hypertension (11) Hyperlipidemia Code(s): E78.5 - HYPERLIPIDEMIA, UNSPECIFIED Qualifiers: Qualified Code(s): E78.2 - Mixed hyperlipidemia
[2016-08-23 11:24] LABS: ARTERIAL BLD GAS O2 SATURATION 94.2 % (90-98.9); ARTERIAL BLOOD GAS BASE EXCESS 13.8 meq/l (-2-2); ARTERIAL BLOOD GAS HCO3 37.4 meq/L (22-26); ARTERIAL BLOOD GAS PO2 78.9 mmHg (68-100)
[2016-08-23 11:26] LABS: ALLENS TEST POSITIVE
[2016-08-23 11:27] LABS: ART PUNCT SITE LEFT RADIAL; LPM/O2% 100; PT. ON O2? YES; TYPE OF O2 BIPAP
[2016-08-23 11:28] LABS: MECH. VENT. Y; VENT RATE 14
[2016-08-23 11:32] LABS: ARTERIAL BLOOD GAS pH 7.58 (7.35-7.45)
--- NOTE | 2016-08-23 11:46 | PN ---
Progress Note, Physician History of Present Illness: Doing poorly Poorly responsive on bipap. Hypoxemic Afebrile - Current Medication List Current Medications: Active Medications Acetylcysteine (Mucomyst 20 Oral / Inh Use Only*) 200 mg NEB QIDR [facility] Last Admin: 08/23/16 06:25 Dose: 200 mg Albuterol Sulfate (Ventolin 0.083% Nebulizer Soln -) 1 amp NEB QIDR [facility] Last Admin: 08/23/16 06:25 Dose: 1 amp Apixaban (Eliquis -) 2.5 mg PO BID [facility] Last Admin: 08/22/16 09:04 Dose: 2.5 mg Atorvastatin Calcium (Lipitor -) 10 mg PO HS [facility] Last Admin: 08/22/16 23:05 Dose: 10 mg Bisacodyl (Dulcolax Suppository -) 10 mg RC PRN PRN PRN Reason: CONSTIPATION Diltiazem HCl (Cardizem Cd -) 120 mg PO DAILY [facility] Last Admin: 08/22/16 09:04 Dose: 120 mg Piperacillin Sod/Tazobactam Sod (Zosyn 3.375gm Ivpb (Pre-Docked)) 50 mls @ 100 mls/hr IVPB Q8H-IV [facility] Last Admin: 08/23/16 10:21 Dose: 100 mls/hr Pantoprazole Sodium 80 mg/ (Sodium Chloride) 100 mls @ 10 mls/hr IVPB Q10H MICHAEL PRN Reason: 8 MG/HR Last Admin: 08/23/16 02:45 Dose: 10 mls/hr Insulin Aspart (Novolog Vial Sliding Scale -) 1 vial SQ ACHS [facility] PRN Reason: Protocol Last Admin: 08/23/16 06:27 Dose: 2 units Insulin Detemir (Levemir Vial) 10 units SQ [facility] Last Admin: 08/22/16 23:06 Dose: 10 units Methimazole (Tapazole -) 15 mg PO TID [facility] Last Admin: 08/23/16 06:27 Dose: 15 mg Nortriptyline HCl (Pamelor -) 30 mg PO HS [facility] Last Admin: 08/22/16 23:07 Dose: 30 mg Bjgkk-3-Scrj Ethyl Esters (Lovaza -) 2 gm PO BID [facility] Last Admin: 08/22/16 23:05 Dose: 2 gm Polyethylene Glycol (Miralax (For Daily Use) -) 17 gm PO BID [facility] Last Admin: 08/22/16 23:06 Dose: 17 grams Prednisone (Deltasone -) 30 mg PO DAILY [facility] Fluticasone/Salmeterol (Advair 100mcg/50mcg -) 1 puff IH BID [facility] Last Admin: 08/22/16 23:05 Dose: 1 puff Sotalol HCl (Betapace -) 120 mg PO BID [facility] Last Admin: 08/23/16 10:05 Dose: 120 mg - Objective Vital Signs: Vital Signs Temperature 97 F L 08/23/16 06:00 Pulse Rate 67 08/23/16 06:00 Respiratory Rate 16 08/23/16 06:00 Blood Pressure 101/50 08/23/16 06:00 O2 Sat by Pulse Oximetry (%) 97 08/23/16 06:20 Constitutional: Yes: No Distress Eyes: Yes: Conjunctiva Clear Cardiovascular: Yes: Regular Rate and Rhythm, S1, S2 Respiratory: Yes: Diminished Gastrointestinal: Yes: Normal Bowel Sounds, Soft. No: Tenderness Edema: Yes Labs: CBC, BMP 08/23/16 05:35 08/23/16 05:35 INR, PTT INR 1.19 (0.82-1.09) H 08/22/16 21:40 Assessment/Plan Pneumococcal pneumonia Opacified hemithorax, likely mucus plug COPD exacerbation Afib Continue zosyn Supportive measures Prognosis poor
[2016-08-23] MEDS ORDERED: INSULIN (NOVOLOG) ASPART 100 UNITS/ML 10ML VIAL ONE (12:47)
[2016-08-23] MEDS ORDERED: FUROSEMIDE 40 MG/4 ML INJECTABLE VIAL IVPB ONE (13:15)
[2016-08-23] MEDS: POLYETHYLENE GLYCOL 3350 119 GM BTL PO SCH (15:38)
[2016-08-23] MEDS: predniSONE 20 MG TABLET (UD) PO SCH (15:38)
[2016-08-23] MEDS: OMEGA-3 ACID ETHYL ESTERS (FATTY-ACIDS) 1 GM CAPSULE (FP) PO SCH (15:38)
[2016-08-23] MEDS: FLUTICASONE/SALMETEROL 100 MCG/50 MCG DISKUS IH SCH (15:38)
--- NOTE | 2016-08-23 20:04 | PN ---
Progress Note (short form) - Note Progress Note: Events noted Patient is doing poorly She is now DNR/DNI/palliative care Agree with conservative/comfort care
[2016-08-24] MEDS: ACETYLCYSTEINE 20% 200MG/ML 4 ML VIAL *FOR ORAL / INH USE ONLY NEB SCH ×4 (00:19→19:15)
[2016-08-24] MEDS: ALBUTEROL SO4 0.083% IH SOL 2.5 MG/3 ML VIAL.NEB. NEB SCH ×4 (00:20→19:15)
[2016-08-24] MEDS: INSULIN SLIDING SCALE (NOVOLOG) 1 VIAL SQ SCH ×4 (00:35→22:55)
[2016-08-24] MEDS: METHIMAZOLE 5 MG TABLET (FP) PO SCH ×4 (00:39→21:41)
[2016-08-24] MEDS: SOTALOL HCL 80 MG TABLET (FP) PO SCH ×3 (00:39→21:42)
[2016-08-24] MEDS: OMEGA-3 ACID ETHYL ESTERS (FATTY-ACIDS) 1 GM CAPSULE (FP) PO SCH ×3 (00:40→21:33)
[2016-08-24] MEDS: ATORVASTATIN CA 10 MG TABLET (FP) PO SCH ×2 (00:40→21:42)
[2016-08-24] MEDS: POLYETHYLENE GLYCOL 3350 119 GM BTL PO SCH ×3 (00:41→21:33)
[2016-08-24] MEDS: NORTRIPTYLINE HCL 10 MG CAPSULE PO SCH ×2 (00:41→22:48)
[2016-08-24] MEDS: FLUTICASONE/SALMETEROL 100 MCG/50 MCG DISKUS IH SCH ×3 (01:55→21:33)
[2016-08-24] MEDS: PIPERACILLIN/TAZOB 3.375 GM 50 ML IVPB SCH ×3 (01:56→18:40)
--- NOTE | 2016-08-24 09:47 | PN ---
Progress Note (short form) - Note Progress Note: Lethargic but arousable on NIPPV. Intake & Output 08/21/16 08/22/16 08/23/16 08/24/16 23:59 23:59 23:59 23:59 Intake Total 975 970 450 Output Total 2150 2200 2250 Balance -1175 -1230 -1800 Weight 118 lb 6 oz Last Vital Signs Temp Pulse Resp BP Pulse Ox 97.4 F L 84 20 109/60 92 L 08/24/16 06:21 08/24/16 06:21 08/24/16 07:50 08/24/16 06:21 08/23/16 23:19 Active Medications Acetylcysteine (Mucomyst 20 Oral / Inh Use Only*) 200 mg NEB QIDR [facility] Last Admin: 08/24/16 06:12 Dose: 200 mg Albuterol Sulfate (Ventolin 0.083% Nebulizer Soln -) 1 amp NEB QIDR [facility] Last Admin: 08/24/16 06:12 Dose: 1 amp Apixaban (Eliquis -) 2.5 mg PO BID [facility] Last Admin: 08/22/16 09:04 Dose: 2.5 mg Atorvastatin Calcium (Lipitor -) 10 mg PO HS [facility] Last Admin: 08/24/16 00:40 Dose: 10 mg Bisacodyl (Dulcolax Suppository -) 10 mg RC PRN PRN PRN Reason: CONSTIPATION Diltiazem HCl (Cardizem Cd -) 120 mg PO DAILY [facility] Last Admin: 08/23/16 15:14 Dose: Not Given Piperacillin Sod/Tazobactam Sod (Zosyn 3.375gm Ivpb (Pre-Docked)) 50 mls @ 100 mls/hr IVPB Q8H-IV [facility] Last Admin: 08/24/16 01:56 Dose: 100 mls/hr Pantoprazole Sodium 80 mg/ (Sodium Chloride) 100 mls @ 10 mls/hr IVPB Q10H MICHAEL PRN Reason: 8 MG/HR Last Admin: 08/23/16 18:27 Dose: 10 mls/hr Insulin Aspart (Novolog Vial Sliding Scale -) [address] [facility] PRN Reason: Protocol Last Admin: 08/24/16 06:32 Dose: 2 units Insulin Detemir (Levemir Vial) 10 units SQ [facility] Last Admin: 08/22/16 23:06 Dose: 10 units Methimazole (Tapazole -) 15 mg PO TID [facility] Last Admin: 08/24/16 06:28 Dose: 15 mg Nortriptyline HCl (Pamelor -) 30 mg PO HS [facility] Last Admin: 08/24/16 00:41 Dose: 30 mg Jcwxu-1-[id number] Ethyl Esters (Lovaza -) 2 gm PO BID [facility] Last Admin: 08/24/16 00:40 Dose: Not Given Polyethylene Glycol (Miralax (For Daily Use) -) 17 gm PO BID [facility] Last Admin: 08/24/16 00:41 Dose: 17 grams Prednisone (Deltasone -) 30 mg PO DAILY [facility] Last Admin: 08/23/16 15:38 Dose: Not Given Fluticasone/Salmeterol (Advair 100mcg/50mcg -) 1 puff IH BID [facility] Last Admin: 08/24/16 01:55 Dose: Not Given Sotalol HCl (Betapace -) 120 mg PO BID [facility] Last Admin: 08/24/16 00:39 Dose: 120 mg Constitutional: Yes: Lethargic on BiPAP Eyes: Yes: WNL HENT: Yes: WNL Neck: Yes: WNL Cardiovascular: Yes: Pulse Irregular, S1, S2 Respiratory: Yes: Diminished at the bases, scattered rhonchi Gastrointestinal: Yes: Normal Bowel Sounds, Soft Extremities: Yes: WNL Edema: No Labs: Laboratory Results - last 24 hr 08/23/16 08/23/16 08/23/16 10:05 11:15 12:42 Puncture Site Left radial ABG pH 7.58 H ABG pCO2 at Pt Temp 39.7 D ABG pO2 at Pt Temp 78.9 D ABG HCO3 37.4 H ABG O2 Sat (Measured) 94.2 ABG O2 Content 11.6 L ABG Base Excess 13.8 H Torito Test Positive O2 Delivery Device Bipap Oxygen Flow Rate 100 Vent Mode S/t Vent Rate 14 Mechanical Rate Y PEEP 0.0 Pressure Support Vent 12/8 POC Glucometer 217 Blood Type O POSITIVE Antibody Screen Negative Crossmatch See Detail 08/23/16 08/24/16 08/24/16 17:51 05:38 06:30 Puncture Site ABG pH ABG pCO2 at Pt Temp ABG pO2 at Pt Temp ABG HCO3 ABG O2 Sat (Measured) ABG O2 Content ABG Base Excess Torito Test O2 Delivery Device Oxygen Flow Rate Vent Mode Vent Rate Mechanical Rate PEEP Pressure Support Vent POC Glucometer 120 153 160 Blood Type Antibody Screen Crossmatch Problem List - Problems (1) Acute on chronic respiratory failure with hypoxia and hypercapnia Code(s): J96.21 - ACUTE AND CHRONIC RESPIRATORY FAILURE WITH HYPOXIA J96.22 - ACUTE AND CHRONIC RESPIRATORY FAILURE WITH HYPERCAPNIA (2) Pneumonia Code(s): J18.9 - PNEUMONIA, UNSPECIFIED ORGANISM (3) UTI (urinary tract infection) Code(s): N39.0 - URINARY TRACT INFECTION, SITE NOT SPECIFIED Qualifiers: Qualified Code(s): N39.0 - Urinary tract infection, site not specified (4) Sepsis Code(s): A41.9 - SEPSIS, UNSPECIFIED ORGANISM Qualifiers: Qualified Code(s): A41.9 - Sepsis, unspecified organism (5) Atrial fibrillation with rapid ventricular response Code(s): I48.91 - UNSPECIFIED ATRIAL FIBRILLATION (6) Acute exacerbation of chronic obstructive pulmonary disease Code(s): J44.1 - CHRONIC OBSTRUCTIVE PULMONARY DISEASE W (ACUTE) EXACERBATION (7) Acute on chronic diastolic (congestive) heart failure Code(s): I50.33 - ACUTE ON CHRONIC DIASTOLIC (CONGESTIVE) HEART FAILURE (8) Coronary artery disease Code(s): I25.10 - ATHSCL HEART DISEASE OF [place] CORONARY ARTERY W/O ANG PCTRS Qualifiers: Qualified Code(s): I25.10 - Atherosclerotic heart disease of [place] coronary artery without angina pectoris (9) Diabetes Code(s): E11.9 - TYPE 2 DIABETES MELLITUS WITHOUT COMPLICATIONS Qualifiers: Qualified Code(s): E11.9 - Type 2 diabetes mellitus without complications (10) HTN (hypertension) Code(s): I10 - ESSENTIAL (PRIMARY) HYPERTENSION Qualifiers: Qualified Code(s): I10 - Essential (primary) hypertension (11) Hyperlipidemia Code(s): E78.5 - HYPERLIPIDEMIA, UNSPECIFIED Qualifiers: Qualified Code(s): E78.2 - Mixed hyperlipidemia Assessment/Plan Pneumonia UTI Sepsis Atrial Fibrillation with RVR improving Acute on Chronic LV Diastolic Heart Failure likely rate related CAD Acute COPD Exacerbation HTN DM Hypercholesterolemia Hyperthyroidism GI bleed Atelectasis - Trial of NC O2 - BiPAP PRN - Prednisone - glucose control - inhaled bronchodilators - ABX per ID - Aspiration precautions - Hospice/comfort measures appropriate in this setting Dr Vo
[2016-08-24] MEDS: predniSONE 20 MG TABLET (UD) PO SCH (10:34)
--- NOTE | 2016-08-24 10:41 | PN ---
Progress Note, Physician History of Present Illness: Off bipap for acute hypoxic respiratory failure now on NC. Remains in SR. - Current Medication List Current Medications: Active Medications Acetylcysteine (Mucomyst 20 Oral / Inh Use Only*) 200 mg NEB QIDR [facility] Last Admin: 08/24/16 06:12 Dose: 200 mg Albuterol Sulfate (Ventolin 0.083% Nebulizer Soln -) 1 amp NEB QIDR [facility] Last Admin: 08/24/16 06:12 Dose: 1 amp Apixaban (Eliquis -) 2.5 mg PO BID [facility] Last Admin: 08/22/16 09:04 Dose: 2.5 mg Atorvastatin Calcium (Lipitor -) 10 mg PO HS [facility] Last Admin: 08/24/16 00:40 Dose: 10 mg Bisacodyl (Dulcolax Suppository -) 10 mg RC PRN PRN PRN Reason: CONSTIPATION Diltiazem HCl (Cardizem Cd -) 120 mg PO DAILY [facility] Last Admin: 08/23/16 15:14 Dose: Not Given Piperacillin Sod/Tazobactam Sod (Zosyn 3.375gm Ivpb (Pre-Docked)) 50 mls @ 100 mls/hr IVPB Q8H-IV [facility] Last Admin: 08/24/16 01:56 Dose: 100 mls/hr Pantoprazole Sodium 80 mg/ (Sodium Chloride) 100 mls @ 10 mls/hr IVPB Q10H [facility] PRN Reason: 8 MG/HR Last Admin: 08/23/16 18:27 Dose: 10 mls/hr Insulin Aspart (Novolog Vial Sliding Scale -) 1 vial SQ ACHS [facility] PRN Reason: Protocol Last Admin: 08/24/16 06:32 Dose: 2 units Insulin Detemir (Levemir Vial) 10 units SQ [facility] Last Admin: 08/22/16 23:06 Dose: 10 units Methimazole (Tapazole -) 15 mg PO TID [facility] Last Admin: 08/24/16 06:28 Dose: 15 mg Nortriptyline HCl (Pamelor -) 30 mg PO HS [facility] Last Admin: 08/24/16 00:41 Dose: 30 mg Sqapw-9-Ohox Ethyl Esters (Lovaza -) 2 gm PO BID [facility] Last Admin: 08/24/16 00:40 Dose: Not Given Polyethylene Glycol (Miralax (For Daily Use) -) 17 gm PO BID [facility] Last Admin: 08/24/16 00:41 Dose: 17 grams Prednisone (Deltasone -) 30 mg PO DAILY [facility] Last Admin: 08/23/16 15:38 Dose: Not Given Fluticasone/Salmeterol (Advair 100mcg/50mcg -) 1 puff IH BID [facility] Last Admin: 08/24/16 01:55 Dose: Not Given Sotalol HCl (Betapace -) 120 mg PO BID [facility] Last Admin: 08/24/16 00:39 Dose: 120 mg - Objective Vital Signs: Vital Signs Temperature 97.4 F L 08/24/16 06:21 Pulse Rate 84 08/24/16 06:21 Respiratory Rate 20 08/24/16 07:50 Blood Pressure 109/60 08/24/16 06:21 O2 Sat by Pulse Oximetry (%) 92 L 08/23/16 23:19 Constitutional: Yes: No Distress, Calm Neck: Yes: Supple Cardiovascular: Yes: Regular Rate and Rhythm Respiratory: Yes: Regular, Diminished, On Nasal O2 Gastrointestinal: Yes: Normal Bowel Sounds, Soft Edema: No Labs: CBC, BMP 08/23/16 05:35 08/23/16 05:35 INR, PTT INR 1.19 (0.82-1.09) H 08/22/16 21:40 - ....Imaging Chest X-ray: Report Reviewed (Left lung ATX) Problem List - Problems (1) Acute on chronic diastolic (congestive) heart failure Code(s): I50.33 - ACUTE ON CHRONIC DIASTOLIC (CONGESTIVE) HEART FAILURE (2) Acute on chronic respiratory failure with hypoxia and hypercapnia Code(s): J96.21 - ACUTE AND CHRONIC RESPIRATORY FAILURE WITH HYPOXIA J96.22 - ACUTE AND CHRONIC RESPIRATORY FAILURE WITH HYPERCAPNIA (3) Atrial fibrillation with rapid ventricular response Code(s): I48.91 - UNSPECIFIED ATRIAL FIBRILLATION (4) Paroxysmal atrial fibrillation Code(s): I48.0 - PAROXYSMAL ATRIAL FIBRILLATION (5) Acute exacerbation of chronic obstructive pulmonary disease Code(s): J44.1 - CHRONIC OBSTRUCTIVE PULMONARY DISEASE W (ACUTE) EXACERBATION (6) Anemia Code(s): D64.9 - ANEMIA, UNSPECIFIED Qualifiers: Qualified Code(s): D64.9 - Anemia, unspecified (7) Coronary artery disease Code(s): I25.10 - ATHSCL HEART DISEASE OF [place] CORONARY ARTERY W/O ANG PCTRS Qualifiers: Qualified Code(s): I25.10 - Atherosclerotic heart disease of [place] coronary artery without angina pectoris (8) Gastric AV malformation Code(s): Q27.33 - ARTERIOVENOUS MALFORMATION OF DIGESTIVE SYSTEM VESSEL (9) HTN (hypertension) Code(s): I10 - ESSENTIAL (PRIMARY) HYPERTENSION Qualifiers: Qualified Code(s): I10 - Essential (primary) hypertension (10) Hyperlipidemia Code(s): E78.5 - HYPERLIPIDEMIA, UNSPECIFIED Qualifiers: Qualified Code(s): E78.2 - Mixed hyperlipidemia (11) Hyperthyroidism Code(s): E05.90 - THYROTOXICOSIS, UNSP WITHOUT THYROTOXIC CRISIS OR STORM Assessment/Plan 1. Acute hypoxemic, hypercapeniec respiratory failure related to COPD/emphysema exacerbation and PNA, UTI, sepsis 2. Paroxysmal atrial fibrillation currently in sinus rhythm [id number] score of 7 on NOAC's 3. Diastolic LV dysfunction with chronic class I-II NYHA classification LV failure, compensated 4. CAD non obstructive CAD angina pectoris 4. HTN 5. NIDDM 6. Hyperlipidemia 7. Parkinson's disease 8. Hyperthyroidism 9. Anemia 10. History of gastritis - gastric AVM post cautery PLAN: 1. Continue Sotalol 120 bid with close monitoring of QTc interval 2. Continue Cardizem CD 120 qd 3. Continue Diovan 80 qd 4. Hold Lasix, judicious hydration as you are 5. Continue Continue A/C with Eliquis 2.5 bid with caution considering the above noted history of anemia and GI bleed 6. Continue Lovaza 2 bid and Lipitor 10 qhs 7. Bronchodilators, Mucomyst and oral steroid taper, bipap and O2 as needed, abx change per ID noted 8. DVT and GI prophylaxis, aspiration precautions, palliative care consulted
[2016-08-24] MEDS ORDERED: INSULIN DETEMIR 100 UNITS/ML MDV SQ ONE (12:50)
--- NOTE | 2016-08-24 18:05 | PN ---
Teaching Attending Note Name of Resident: Deon Starks ATTENDING PHYSICIAN STATEMENT I saw and evaluated the patient. I reviewed the resident's note and discussed the case with the resident. I agree with the resident's findings and plan as documented. SUBJECTIVE: Patient is looking and feeling better, with no acute distress, daughter at bedside, requesting that the patient to go home hospice. OBJECTIVE: Vital Signs Temperature 98.8 F 08/24/16 17:44 Pulse Rate 90 08/24/16 17:44 Respiratory Rate 20 08/24/16 17:44 Blood Pressure 122/57 08/24/16 17:44 O2 Sat by Pulse Oximetry (%) 94 L 08/24/16 12:32 CBCD WBC 14.9 K/mm3 (4.0-10.0) H 08/23/16 05:35 RBC 3.97 M/mm3 (3.60-5.2) 08/23/16 05:35 Hgb 8.6 GM/dL (10.7-15.3) L 08/23/16 05:35 Hct 29.3 % (32.4-45.2) L 08/23/16 05:35 MCV 73.6 fl (80-96) L 08/23/16 05:35 MCHC 29.4 g/dl (32.0-36.0) L 08/23/16 05:35 RDW 27.6 % (11.6-15.6) H 08/23/16 05:35 Plt Count 244 K/MM3 (134-434) 08/23/16 05:35 MPV 9.1 fl (7.5-11.1) 08/23/16 05:35 CMP Sodium 143 mmol/L (136-145) 08/23/16 05:35 Potassium 4.2 mmol/L (3.5-5.1) 08/23/16 05:35 Chloride 96 mmol/L (98-107) L 08/23/16 05:35 Carbon Dioxide 40 mmol/L (21-32) H 08/23/16 05:35 Anion Gap 7 (8-16) L 08/23/16 05:35 BUN 28 mg/dL (7-18) H 08/23/16 05:35 Creatinine 0.5 mg/dL (0.55-1.02) L 08/23/16 05:35 Creat Clearance w eGFR > 60 (>60) 08/14/16 05:00 Random Glucose 168 mg/dL (74-106) H 08/23/16 05:35 Calcium 8.4 mg/dL (8.5-10.1) L 08/23/16 05:35 Total Bilirubin 0.3 mg/dL (0.2-1.0) 08/14/16 05:00 AST 20 U/L (15-37) 08/14/16 05:00 ALT 30 U/L (12-78) D 08/14/16 05:00 Alkaline Phosphatase 71 U/L (45-117) 08/14/16 05:00 Total Protein 5.2 g/dl (6.4-8.2) L 08/14/16 05:00 Albumin 2.0 g/dl (3.4-5.0) L 08/14/16 05:00 CARDIAC ENZYMES Creatine Kinase 19 IU/L (26-192) L 08/11/16 05:35 Troponin I 0.04 ng/ml (0.00-0.05) 08/16/16 10:23 Current Medications Generic Name Dose Route Start Last Admin Trade Name Freq PRN Reason Stop Dose Admin Acetylcysteine 200 mg 08/21/16 12:00 08/24/16 12:05 Mucomyst 20 Oral / Inh Use Only* NEB 200 mg QIDR MICHAEL Administration Albuterol Sulfate 1 amp 08/21/16 12:00 08/24/16 12:05 Ventolin 0.083% Nebulizer Soln - NEB 1 amp QIDR MICHAEL Administration Apixaban 2.5 mg 08/20/16 22:00 08/22/16 09:04 Eliquis - PO 2.5 mg BID MIC[facility]EL Administration Atorvastatin Calcium 10 mg 08/09/16 22:00 08/24/16 00:40 Lipitor - PO 10 mg HS MICHAEL Administration Bisacodyl 10 mg 08/22/16 12:43 Dulcolax Suppository - RC PRN PRN CONSTIPATION Diltiazem HCl 120 mg 08/16/16 18:20 08/24/16 10:33 Cardizem Cd - PO 120 mg DAILY MIC[facility]EL Administration Piperacillin Sod/Tazobactam Sod 50 mls @ 100 mls/hr 08/17/16 13:35 08/24/16 10: 35 Zosyn 3.375gm Ivpb (Pre-Docked) IVPB 100 mls/hr Q8H-IV [facility] Administration Insulin Aspart 1 vial 08/13/16 11:00 08/24/16 06:32 Novolog Vial Sliding Scale - SQ 2 units ACHS [facility]EL Administration Protocol Insulin Detemir 10 units 08/21/16 15:43 08/22/16 23:06 Levemir Vial SQ 10 units HS [facility] Administration Methimazole 15 mg 08/09/16 22:00 08/24/16 15:09 Tapazole - PO 15 mg TID MIC[facility]EL Administration Nortriptyline HCl 30 mg 08/09/16 22:00 08/24/16 00:41 Pamelor - PO 30 mg HS MIC[facility]EL Administration Qfzkw-9-Ptik Ethyl Esters 2 gm 08/09/16 22:00 08/24/16 10:35 Lovaza - PO Not Given BID MICHAEL Pantoprazole Sodium 40 mg 08/24/16 22:00 Protonix - PO BID MICHAEL Polyethylene Glycol 17 gm 08/17/16 22:00 08/24/16 10:35 Miralax (For Daily Use) - PO Not Given BID MICHAEL Prednisone 30 mg 08/23/16 10:00 08/24/16 10:34 Deltasone - PO 30 mg DAILY [facility] Administration Fluticasone/Salmeterol 1 puff 08/16/16 10:00 08/24/16 10:46 Advair 100mcg/50mcg - IH Not Given BID MICHAEL Sotalol HCl 120 mg 08/20/16 15:01 08/24/16 10:34 Betapace - PO 120 mg BID MIC[facility]EL Administration Home Medications Medication Instructions Recorded Tiotropium [place] [Spiriva] 1 inh PO BID 07/19/14 Roflumilast [Daliresp -] 500 mcg PO DAILY #30 tablet 07/21/14 Metformin HCl 500 mg PO DAILY 05/09/15 Pregabalin [Lyrica -] 75 mg PO BID 05/09/15 Albuterol 0.083% Nebulizer Lisa 1 neb NEB BID 12/01/15 [Ventolin 0.083% Nebulizer Soln -] Aspirin [ASA -] 81 mg PO DAILY 04/18/16 Calcium Carbonate [Calcium] 500 mg PO BID 04/18/16 Escitalopram Oxalate [Lexapro -] 10 mg PO BID 04/18/16 Pantoprazole Sodium [Protonix] 40 mg PO DAILY 04/18/16 Pramipexole Di-HCl [Mirapex] 0.5 mg PO HS 04/18/16 Sucralfate [Carafate] 1 gm PO BID 04/18/16 [place]-3 Acid Ethyl Esters [Lovaza 2 gm PO BID cap 04/21/16 -] Benzonatate [Tessalon Perle -] 200 mg PO BID 05/04/16 Levalbuterol Tartrate [Xopenex Hfa] 15 gm IH DAILY PRN 05/04/16 Nortriptyline HCl [Pamelor -] 30 mg PO HS 05/04/16 Salmeterol/Fluticasone [Advair 1 inh PO BID 07/13/16 100Mcg/50Mcg -] Atorvastatin Ca [Lipitor] 10 mg PO HS #30 tablet 07/16/16 Ferrous Sulfate [Feosol] 325 mg PO BIDWM #120 ud 07/16/16 Apixaban [Eliquis -] 2.5 mg PO BID #60 tablet 07/26/16 Methimazole [Tapazole -] 15 mg PO TID #90 tablet 07/26/16 Sotalol HCl [Betapace -] 80 mg PO BID #60 tablet 07/26/16 Insulin Glargine,Hum.rec.anlog 5 units SQ HS #1 vial 08/03/16 [Lantus (nf)] Insulin Sliding Scale [Novolog 1 vial SQ ACHS #30 units 08/03/16 Vial Sliding Scale -] Prednisone See Taper PO BID #60 tablet 08/03/16 Methimazole [Tapazole] 10 mg PO TID 08/09/16 Nortriptyline HCl [Pamelor -] 10 mg PO HS 08/09/16 Pramipexole Di-HCl [Mirapex] 0.5 mg PO HS 08/09/16 Pregabalin [Lyrica] 75 mg PO DAILY 08/09/16 ASSESSMENT AND PLAN: Patient is a 86 yr old woman with multiple co-morbidities BIBEMS from [facility] for difficulty breathing, was found to be in rapid Afib in the ED admitted for sepsis likely from pna, rapid Afib, and hypoxia/respiratory distress. # Acute SOB /Hypoxemia resolved post transfusion no further w/u is needed as per family # Acute Upper GI bleed ; Melena most likely due to acute Gastritis due to steroids use. As per 's notes her last EGD by Dr. Severino, in 05/07 for gastritis without any ulcers . # Possible rectal mass as per 's rectal exam # Symptomatic anemia s/o transfusion one unit of PRBC. Patient is going in am for home hospice
--- NOTE | 2016-08-24 20:18 | PN ---
Physical Exam: SUBJECTIVE: Patient seen and examined more responsive today. off bipap, eating. denies chest pain, SOB, abdominal pain. OBJECTIVE: Vital Signs Period Temp Pulse Resp BP Sys/Pinedo Pulse Ox Last 24 Hr 97 F-98.8 F 72-93 20-22 98-122/57-64 90-94 GENERAL: The patient is awake, alert, in no acute distress. EYES: PERRL, extraocular movements intact, ENT: moist mucous membranes. NECK: Trachea midline, full range of motion, supple. LUNGS: quiet in left lung, rhonchi in right lung without crackles or wheezing. HEART: afib, S1, S2 without murmur ABDOMEN: Soft, nontender, nondistended, normoactive bowel sounds EXTREMITIES: 2+ pulses, warm, well-perfused, no edema. Laboratory Results - last 24 hr 08/24/16 08/24/16 05:38 06:30 POC Glucometer 153 160 Active Medications Generic Name Dose Route Start Last Admin Trade Name Freq PRN Reason Stop Dose Admin Acetylcysteine 200 mg 08/21/16 12:00 08/24/16 19:15 Mucomyst 20 Oral / Inh Use Only* NEB 200 mg QIDR MICHAEL Administration Albuterol Sulfate 1 amp 08/21/16 12:00 08/24/16 19:15 Ventolin 0.083% Nebulizer Soln - NEB 1 amp QIDR MICHAEL Administration Apixaban 2.5 mg 08/20/16 22:00 08/22/16 09:04 Eliquis - PO 2.5 mg BID MICHAEL Administration Atorvastatin Calcium 10 mg 08/09/16 22:00 08/24/16 00:40 Lipitor - PO 10 mg HS MICHAEL Administration Bisacodyl 10 mg 08/22/16 12:43 Dulcolax Suppository - RC PRN PRN CONSTIPATION Diltiazem HCl 120 mg 08/16/16 18:20 08/24/16 10:33 Cardizem Cd - PO 120 mg DAILY [facility]EL Administration Piperacillin Sod/Tazobactam Sod 50 mls @ 100 mls/hr 08/17/16 13:35 08/24/16 18: 40 Zosyn 3.375gm Ivpb (Pre-Docked) IVPB 100 mls/hr Q8H-IV [facility]EL Administration Insulin Aspart 1 vial 08/13/16 11:00 08/24/16 18:20 Novolog Vial Sliding Scale - SQ Not Given ACHS [facility] Protocol Insulin Detemir 10 units 08/21/16 15:43 08/22/16 23:06 Levemir Vial SQ 10 units HS MICHAEL Administration Methimazole 15 mg 08/09/16 22:00 08/24/16 15:09 Tapazole - PO 15 mg TID MICHAEL Administration Nortriptyline HCl 30 mg 08/09/16 22:00 08/24/16 00:41 Pamelor - PO 30 mg HS MICHAEL Administration Zpcqs-2-Mluw Ethyl Esters 2 gm 08/09/16 22:00 08/24/16 10:35 Lovaza - PO Not Given BID MIC[facility]EL Pantoprazole Sodium 40 mg 08/24/16 22:00 Protonix - PO BID MICHAEL Polyethylene Glycol 17 gm 08/17/16 22:00 08/24/16 10:35 Miralax (For Daily Use) - PO Not Given BID MICHAEL Prednisone 30 mg 08/23/16 10:00 08/24/16 10:34 Deltasone - PO 30 mg DAILY MIC[facility]EL Administration Fluticasone/Salmeterol 1 puff 08/16/16 10:00 08/24/16 10:46 Advair 100mcg/50mcg - IH Not Given BID MICHAEL Sotalol HCl 120 mg 08/20/16 15:01 08/24/16 10:34 Betapace - PO 120 mg BID MICHAEL Administration ASSESSMENT/PLAN: 86 yr old woman with multiple co-morbidities BIBEMS from [facility] for difficulty breathing, was found to be in rapid Afib in the ED admitted for sepsis likely from pna, rapid Afib, and hypoxia/respiratory distress. Found to have urinary retention, right hydronephrosis, episodes of hypotension, hypoxia requiring Bipap. - No blood work, no invasive procedures, comfort measures only. - continue oral medications, continue antibiotics(will discuss with ID for oral abx if continued IV is unacceptable for neris), manning to remain as she may retain without it(further assessment by neris for continued need) - for home hospice, and transfer home if continues to be stable. #Afib, persistent - rate controlled today - sotalol 120mg po bid - hold if BP<95 systolic - cardizem 120mg po - hold if BP systolic <100 - abixapan 2.5mg po bid - held due to GI bleed #Respiratory distress/hypoxia, - Improved - on nasal cannula - duonebs q4 prn - prednisone 40mg QD - Maintain HOB >30 to reduce aspiration risk and maintain airway and respiration , she does not tolerate laying flat. #Pneumonia (strep positive) - zosyn 3.375gm q8hr - continue --start 08/17 - rocephin 1gm iv daily --start 08/10 - stopped 08/17 #Hydronephrosis - manning in place draining clear yellow urine mixed with blood - d/c flomax given low BP #DM - uncontrolled - levemir 10u subq HS - held while NPO - novolog sliding scale - BGM ACHS #HTN/CHF - metoprolol tart 5mg IVPush q4h prn - diovan 80m g po daily - hold arb given recent dehydration #CAD - atorvastatin 10mg HS po - lovaza 2gm po BID #Hyperthyroidism -methiazole 15mg po TID #Flat affect - nortryptiline 30mg po daily #Diet: soft diabetic with ensure TID #DVT prophylaxis - patient has been made comfort measures. code status: DNR/DNI Visit type - Emergency Visit Emergency Visit: No - New Patient This patient is new to me today: No - Critical Care Critical Care patient: No - Discharge Referral Referred to [facility] Med P.C.: No
[2016-08-24] MEDS ORDERED: PT OWN MED DRAWER 7, Y5N ONE (21:24)
[2016-08-24] MEDS: PANTOPRAZOLE SODIUM 80 MG in SODIUM CHLORIDE 100 ML IVPB SCH (21:36)
[2016-08-24] MEDS: PANTOPRAZOLE 40 MG TABLET (FP) PO SCH (21:42)
[2016-08-25] MEDS: ACETYLCYSTEINE 20% 200MG/ML 4 ML VIAL *FOR ORAL / INH USE ONLY NEB SCH ×3 (00:01→10:40)
[2016-08-25] MEDS: ALBUTEROL SO4 0.083% IH SOL 2.5 MG/3 ML VIAL.NEB. NEB SCH ×3 (00:01→10:40)
[2016-08-25] MEDS ORDERED: ACETAMINOPHEN 650 MG/20.3 ML ORAL SOLUTION (CUPS) PO PRN (01:33)
[2016-08-25] MEDS: PIPERACILLIN/TAZOB 3.375 GM 50 ML IVPB SCH ×2 (01:36→09:33)
[2016-08-25 06:14] VITALS: BP 109/58; TEMP 97.8
[2016-08-25] MEDS: METHIMAZOLE 5 MG TABLET (FP) PO SCH (06:20)
[2016-08-25] MEDS: INSULIN SLIDING SCALE (NOVOLOG) 1 VIAL SQ SCH (06:25)
--- NOTE | 2016-08-25 08:08 | PN ---
Teaching Attending Note Name of Resident: Nicky Mejia ATTENDING PHYSICIAN STATEMENT I saw and evaluated the patient. I reviewed the resident's note and discussed the case with the resident. I agree with the resident's findings and plan as documented. SUBJECTIVE: Patient is feeling better with no acute distress, looks comfortable, wants to go home. OBJECTIVE: Vital Signs Temperature 97.8 F 08/25/16 06:00 Pulse Rate 69 08/25/16 06:00 Respiratory Rate 20 08/25/16 06:00 Blood Pressure 109/58 08/25/16 06:00 O2 Sat by Pulse Oximetry (%) 97 08/24/16 21:00 GENERAL: The patient is awake, alert, and NAD EYES: extraocular movements intact, ENT: on 2l nasal canula , moist mucus membranes NECK: Trachea midline, full range of motion, supple. LUNGS: decreased breath sounds BL , no wheeze HEART: afib rate controlled. S1, S2. MANISHA 2/6 ABDOMEN: Soft, ND, No tenderness , normoactive bowel sounds EXTREMITIES: 2+ pulses, warm, well-perfused, no edema. NEUROLOGICAL: Normal speech. alert , awake, Cn2-12 grossly intact Skin: Decubitus Ulcer with eschar unstageable. Multiple ulcers around b/l buttock and gluteal folds. CBCD WBC 14.9 K/mm3 (4.0-10.0) H 08/23/16 05:35 RBC 3.97 M/mm3 (3.60-5.2) 08/23/16 05:35 Hgb 8.6 GM/dL (10.7-15.3) L 08/23/16 05:35 Hct 29.3 % (32.4-45.2) L 08/23/16 05:35 MCV 73.6 fl (80-96) L 08/23/16 05:35 MCHC 29.4 g/dl (32.0-36.0) L 08/23/16 05:35 RDW 27.6 % (11.6-15.6) H 08/23/16 05:35 Plt Count 244 K/MM3 (134-434) 08/23/16 05:35 MPV 9.1 fl (7.5-11.1) 08/23/16 05:35 CMP Sodium 143 mmol/L (136-145) 08/23/16 05:35 Potassium 4.2 mmol/L (3.5-5.1) 08/23/16 05:35 Chloride 96 mmol/L (98-107) L 08/23/16 05:35 Carbon Dioxide 40 mmol/L (21-32) H 08/23/16 05:35 Anion Gap 7 (8-16) L 08/23/16 05:35 BUN 28 mg/dL (7-18) H 08/23/16 05:35 Creatinine 0.5 mg/dL (0.55-1.02) L 08/23/16 05:35 Creat Clearance w eGFR > 60 (>60) 08/14/16 05:00 Random Glucose 168 mg/dL (74-106) H 08/23/16 05:35 Calcium 8.4 mg/dL (8.5-10.1) L 08/23/16 05:35 Total Bilirubin 0.3 mg/dL (0.2-1.0) 08/14/16 05:00 AST 20 U/L (15-37) 08/14/16 05:00 ALT 30 U/L (12-78) D 08/14/16 05:00 Alkaline Phosphatase 71 U/L (45-117) 08/14/16 05:00 Total Protein 5.2 g/dl (6.4-8.2) L 08/14/16 05:00 Albumin 2.0 g/dl (3.4-5.0) L 08/14/16 05:00 CARDIAC ENZYMES Creatine Kinase 19 IU/L (26-192) L 08/11/16 05:35 Troponin I 0.04 ng/ml (0.00-0.05) 08/16/16 10:23 Current Medications Generic Name Dose Route Start Last Admin Trade Name Freq PRN Reason Stop Dose Admin Acetaminophen 650 mg 08/25/16 01:33 Tylenol Oral Solution - PO Q6H PRN FEVER OR PAIN Acetylcysteine 200 mg 08/21/16 12:00 08/25/16 06:45 Mucomyst 20 Oral / Inh Use Only* NEB 200 mg QIDR MICHAEL Administration Albuterol Sulfate 1 amp 08/21/16 12:00 08/25/16 06:45 Ventolin 0.083% Nebulizer Soln - NEB 1 amp QIDR MICHAEL Administration Apixaban 2.5 mg 08/20/16 22:00 08/22/16 09:04 Eliquis - PO 2.5 mg BID MICHAEL Administration Atorvastatin Calcium 10 mg 08/09/16 22:00 08/24/16 21:42 Lipitor - PO 10 mg HS MICHAEL Administration Bisacodyl 10 mg 08/22/16 12:43 Dulcolax Suppository - RC PRN PRN CONSTIPATION Diltiazem HCl 120 mg 08/16/16 18:20 08/24/16 10:33 Cardizem Cd - PO 120 mg DAILY MIHCAEL Administration Piperacillin Sod/Tazobactam Sod 50 mls @ 100 mls/hr 08/17/16 13:35 08/25/16 01: 36 Zosyn 3.375gm Ivpb (Pre-Docked) IVPB 100 mls/hr Q8H-IV MICHAEL Administration Insulin Aspart 1 vial 08/13/16 11:00 08/25/16 06:25 Novolog Vial Sliding Scale - SQ 4 units ACHS MICHAEL Administration Protocol Insulin Detemir 10 units 08/21/16 15:43 08/22/16 23:06 Levemir Vial SQ 10 units HS MICHAEL Administration Methimazole 15 mg 08/09/16 22:00 08/25/16 06:20 Tapazole - PO 15 mg TID MICHAEL Administration Nortriptyline HCl 30 mg 08/09/16 22:00 08/24/16 22:48 Pamelor - PO 30 mg HS MICHAEL Administration Xsrfw-4-Gexk Ethyl Esters 2 gm 08/09/16 22:00 08/24/16 21:33 Lovaza - PO Not Given BID MICHAEL Pantoprazole Sodium 40 mg 08/24/16 22:00 08/24/16 21:42 Protonix - PO 40 mg BID MICHAEL Administration Polyethylene Glycol 17 gm 08/17/16 22:00 08/24/16 21:33 Miralax (For Daily Use) - PO Not Given BID MICHAEL Prednisone 30 mg 08/23/16 10:00 08/24/16 10:34 Deltasone - PO 30 mg DAILY MICHAEL Administration Fluticasone/Salmeterol 1 puff 08/16/16 10:00 08/24/16 21:33 Advair 100mcg/50mcg - IH Not Given BID MICHAEL Sotalol HCl 120 mg 08/20/16 15:01 08/24/16 21:42 Betapace - PO 120 mg BID MICHAEL Administration Home Medications Medication Instructions Recorded Tiotropium [place] [Spiriva] 1 inh PO BID 07/19/14 Roflumilast [Daliresp -] 500 mcg PO DAILY #30 tablet 07/21/14 Metformin HCl 500 mg PO DAILY 05/09/15 Pregabalin [Lyrica -] 75 mg PO BID 05/09/15 Albuterol 0.083% Nebulizer Lisa 1 neb NEB BID 12/01/15 [Ventolin 0.083% Nebulizer Soln -] Aspirin [ASA -] 81 mg PO DAILY 04/18/16 Calcium Carbonate [Calcium] 500 mg PO BID 04/18/16 Escitalopram Oxalate [Lexapro -] 10 mg PO BID 04/18/16 Pantoprazole Sodium [Protonix] 40 mg PO DAILY 04/18/16 Pramipexole Di-HCl [Mirapex] 0.5 mg PO HS 04/18/16 Sucralfate [Carafate] 1 gm PO BID 04/18/16 [place]-3 Acid Ethyl Esters [Lovaza 2 gm PO BID cap 04/21/16 -] Benzonatate [Tessalon Perle -] 200 mg PO BID 05/04/16 Levalbuterol Tartrate [Xopenex Hfa] 15 gm IH DAILY PRN 05/04/16 Nortriptyline HCl [Pamelor -] 30 mg PO HS 05/04/16 Salmeterol/Fluticasone [Advair 1 inh PO BID 07/13/16 100Mcg/50Mcg -] Atorvastatin Ca [Lipitor] 10 mg PO HS #30 tablet 07/16/16 Ferrous Sulfate [Feosol] 325 mg PO BIDWM #120 ud 07/16/16 Apixaban [Eliquis -] 2.5 mg PO BID #60 tablet 07/26/16 Methimazole [Tapazole -] 15 mg PO TID #90 tablet 07/26/16 Sotalol HCl [Betapace -] 80 mg PO BID #60 tablet 07/26/16 Insulin Glargine,Hum.rec.anlog 5 units SQ HS #1 vial 08/03/16 [Lantus (nf)] Insulin Sliding Scale [Novolog 1 vial SQ ACHS #30 units 08/03/16 Vial Sliding Scale -] Prednisone See Taper PO BID #60 tablet 08/03/16 Methimazole [Tapazole] 10 mg PO TID 08/09/16 Nortriptyline HCl [Pamelor -] 10 mg PO HS 08/09/16 Pramipexole Di-HCl [Mirapex] 0.5 mg PO HS 08/09/16 Pregabalin [Lyrica] 75 mg PO DAILY 08/09/16 ASSESSMENT AND PLAN: Patient is a 86 yr old woman with multiple co-morbidities BIBEMS from [facility] for difficulty breathing, was found to be in rapid Afib in the ED admitted for sepsis likely from pna, rapid Afib, and hypoxia/respiratory distress. # Acute SOB /Hypoxemia resolving s/p one unit transfusion no further w/u as per family # s/p Upper GI bleed ; Melena most likely due to acute Gastritis due to steroids use. As per 's notes her last EGD by Dr. Severino, in 05/07 for gastritis without any ulcers. Family do not want any further w/u, going for home hospice. # Possible rectal mass as per 's rectal exam , as per family no further w/u. # Symptomatic anemia s/o transfusion one unit of PRBC. Home hospice today if possible.
[2016-08-25] MEDS ORDERED: PT OWN MED DRAWER 7, Y5N ONE (08:45)
[2016-08-25] MEDS: SOTALOL HCL 80 MG TABLET (FP) PO SCH (09:34)
[2016-08-25] MEDS: predniSONE 20 MG TABLET (UD) PO SCH (09:35)
[2016-08-25] MEDS: OMEGA-3 ACID ETHYL ESTERS (FATTY-ACIDS) 1 GM CAPSULE (FP) PO SCH (09:36)
[2016-08-25] MEDS: PANTOPRAZOLE 40 MG TABLET (FP) PO SCH (09:37)
--- NOTE | 2016-08-25 10:49 | PN ---
Progress Note, Physician History of Present Illness: Denies dyspnea or pain. Remains in SR. - Current Medication List Current Medications: Active Medications Acetaminophen (Tylenol Oral Solution -) 650 mg PO Q6H PRN PRN Reason: FEVER OR PAIN Acetylcysteine (Mucomyst 20 Oral / Inh Use Only*) 200 mg NEB QIDR [facility] Last Admin: 08/25/16 06:45 Dose: 200 mg Albuterol Sulfate (Ventolin 0.083% Nebulizer Soln -) 1 amp NEB QIDR [facility] Last Admin: 08/25/16 06:45 Dose: 1 amp Apixaban (Eliquis -) 2.5 mg PO BID [facility] Last Admin: 08/22/16 09:04 Dose: 2.5 mg Atorvastatin Calcium (Lipitor -) 10 mg PO HS [facility] Last Admin: 08/24/16 21:42 Dose: 10 mg Bisacodyl (Dulcolax Suppository -) 10 mg RC PRN PRN PRN Reason: CONSTIPATION Diltiazem HCl (Cardizem Cd -) 120 mg PO DAILY [facility] Last Admin: 08/25/16 09:35 Dose: 120 mg Piperacillin Sod/Tazobactam Sod (Zosyn 3.375gm Ivpb (Pre-Docked)) 50 mls @ 100 mls/hr IVPB Q8H-IV [facility] Last Admin: 08/25/16 09:33 Dose: 100 mls/hr Insulin Aspart (Novolog Vial Sliding Scale -) 1 vial SQ ACHS [facility] PRN Reason: Protocol Last Admin: 08/25/16 06:25 Dose: 4 units Insulin Detemir (Levemir Vial) 10 units SQ [facility] Last Admin: 08/22/16 23:06 Dose: 10 units Methimazole (Tapazole -) 15 mg PO TID [facility] Last Admin: 08/25/16 06:20 Dose: 15 mg Nortriptyline HCl (Pamelor -) 30 mg PO [facility] Last Admin: 08/24/16 22:48 Dose: 30 mg [id number] Ethyl Esters (Lovaza -) 2 gm PO BID [facility] Last Admin: 08/25/16 09:36 Dose: 2 gm Pantoprazole Sodium (Protonix -) 40 mg PO BID [facility] Last Admin: 08/25/16 09:37 Dose: 40 mg Polyethylene Glycol (Miralax (For Daily Use) -) 17 gm PO BID [facility] Last Admin: 08/24/16 21:33 Dose: Not Given Prednisone (Deltasone -) 30 mg PO DAILY [facility] Last Admin: 08/25/16 09:35 Dose: 30 mg Fluticasone/Salmeterol (Advair 100mcg/50mcg -) 1 puff IH BID [facility] Last Admin: 08/24/16 21:33 Dose: Not Given Sotalol HCl (Betapace -) 120 mg PO BID [facility] Last Admin: 08/25/16 09:34 Dose: 120 mg - Objective Vital Signs: Vital Signs Temperature 97.8 F 08/25/16 06:00 Pulse Rate 69 08/25/16 06:00 Respiratory Rate 20 08/25/16 06:00 Blood Pressure 109/58 08/25/16 06:00 O2 Sat by Pulse Oximetry (%) 97 08/24/16 21:00 Constitutional: Yes: No Distress, Calm Neck: Yes: Supple Cardiovascular: Yes: Regular Rate and Rhythm Respiratory: Yes: Regular, Diminished Gastrointestinal: Yes: Soft, Hypoactive Bowel Sounds Edema: No Labs: CBC, BMP 08/23/16 05:35 08/23/16 05:35 INR, PTT INR 1.19 (0.82-1.09) H 08/22/16 21:40 Problem List - Problems (1) Acute on chronic diastolic (congestive) heart failure Code(s): I50.33 - ACUTE ON CHRONIC DIASTOLIC (CONGESTIVE) HEART FAILURE (2) Acute on chronic respiratory failure with hypoxia and hypercapnia Code(s): J96.21 - ACUTE AND CHRONIC RESPIRATORY FAILURE WITH HYPOXIA J96.22 - ACUTE AND CHRONIC RESPIRATORY FAILURE WITH HYPERCAPNIA (3) Atrial fibrillation with rapid ventricular response Code(s): I48.91 - UNSPECIFIED ATRIAL FIBRILLATION (4) Paroxysmal atrial fibrillation Code(s): I48.0 - PAROXYSMAL ATRIAL FIBRILLATION (5) Acute exacerbation of chronic obstructive pulmonary disease Code(s): J44.1 - CHRONIC OBSTRUCTIVE PULMONARY DISEASE W (ACUTE) EXACERBATION (6) Anemia Code(s): D64.9 - ANEMIA, UNSPECIFIED Qualifiers: Qualified Code(s): D64.9 - Anemia, unspecified (7) Coronary artery disease Code(s): I25.10 - ATHSCL HEART DISEASE OF [place] CORONARY ARTERY W/O ANG PCTRS Qualifiers: Qualified Code(s): I25.10 - Atherosclerotic heart disease of [place] coronary artery without angina pectoris (8) Gastric AV malformation Code(s): Q27.33 - ARTERIOVENOUS MALFORMATION OF DIGESTIVE SYSTEM VESSEL (9) HTN (hypertension) Code(s): I10 - ESSENTIAL (PRIMARY) HYPERTENSION Qualifiers: Qualified Code(s): I10 - Essential (primary) hypertension (10) Hyperlipidemia Code(s): E78.5 - HYPERLIPIDEMIA, UNSPECIFIED Qualifiers: Qualified Code(s): E78.2 - Mixed hyperlipidemia (11) Hyperthyroidism Code(s): E05.90 - THYROTOXICOSIS, UNSP WITHOUT THYROTOXIC CRISIS OR STORM Assessment/Plan 1. Acute hypoxemic, hypercapeniec respiratory failure related to COPD/emphysema exacerbation and PNA, UTI, sepsis 2. Paroxysmal atrial fibrillation currently in sinus rhythm [id number] score of 7 on NOAC's 3. Diastolic LV dysfunction with chronic class I-II NYHA classification LV failure, compensated 4. CAD non obstructive CAD angina pectoris 4. HTN 5. NIDDM 6. Hyperlipidemia 7. Parkinson's disease 8. Hyperthyroidism 9. Anemia 10. History of gastritis - gastric AVM post cautery PLAN: 1. Continue Sotalol 120 bid with close monitoring of QTc interval 2. Continue Cardizem CD 120 qd 3. Continue Diovan 80 qd 4. Hold Lasix, judicious hydration as you are 5. Continue Continue A/C with Eliquis 2.5 bid with caution considering the above noted history of anemia and GI bleed 6. Continue Lovaza 2 bid and Lipitor 10 qhs 7. Bronchodilators, Mucomyst and oral steroid taper, bipap and O2 as needed, abx course per ID 8. DVT and GI prophylaxis, aspiration precautions, home hospice
[2016-08-25 12:04] VITALS: PULSE 72
--- NOTE | 2016-08-25 14:10 | DS ---
Physical Exam: SUBJECTIVE: Patient discharged home for home hospice. OBJECTIVE: Vital Signs Period Temp Pulse Resp BP Sys/Pinedo Pulse Ox Last 24 Hr 97.8 F-98.8 F 69-90 20-20 109-122/57-64 90-97 LABS Laboratory Results - last 24 hr 08/24/16 08/25/16 22:52 06:21 POC Glucometer 289 223 Microbiology 08/10/16 12:16 Urine For Antigen Detection Legionella Antigen - Final 08/10/16 12:16 Urine For Antigen Detection Streptococcus pneumoniae Antigen (M - Final 08/10/16 12:15 Nasopharyngeal Swab Influenza Types A,B Antigen (MATEUS) - Final 08/10/16 12:15 Nasopharyngeal Swab - Final 08/09/16 09:48 Urine - Urine - Catheterized Urine Culture - Final NO GROWTH OBTAINED 08/09/16 09:30 Blood - Peripheral Venous Blood Culture - Final NO GROWTH AFTER 5 DAYS INCUBATION 08/09/16 08:30 Blood - Peripheral Venous Blood Culture - Final NO GROWTH AFTER 5 DAYS INCUBATION Laboratory Tests 08/09/16 08/09/16 09:30 13:30 Lactic Acid 2.379 H* B-Natriuretic Peptide 2458.12 H Laboratory Tests 08/09/16 08/09/16 09:30 09:30 WBC 21.8 H Hgb 10.5 L Hct 36.2 Plt Count 210 D Sodium 139 Potassium 4.5 BUN 31 H D Creatinine 0.5 L HOSPITAL COURSE: Date of Admission:08/09/16 - Date of Discharge: 08/25/16 86 yr woman salvadorean-speaking, with COPD, asthma, CHF(left vent diastolic dysfunction), CAD, paroxysmal A.Fib., NIDDM, HTN, HLD, GERD, gastric AVM malformation, Parkinsonism, anemia BIBEMS from [place] in respiratory distress and narrow complex rapid atrial fibrillation. Found to be septic (fever 102, tachypneic, tachycardiac, elevated white count, new infiltrate on chest xray). She required ICU level of care from 08/09-08/15. Atrial fibrillation was controlled with cardizem drip initially then sotalol 120mg twice daily and cardizem 120mg po daily. Respiratory distress improved with Bipap and she became o2 dependent 3lpm to maintain saturation >90%. She was found to have strep pneumonia positive and treated with IV zosyn q8hr and prednisone from until discharge and rocephin from 08/09-08/17. Her stay was complicated by urinary retention with right kidney hydronephrosis, uncontrolled diabetes, episodes of hypotension that required holding of sotalol and cardizem which instigated her into rapid atrial fibrillation, hypoxia requiring Bipap and upper GI bleed with melena. She experienced episodes of hypoxia requiring prolonged Bipap, and episodes of atrial fibrilliation requiring digoxin administration for rate control. Family discussed goals of care and in accordance to patient's previously expressed wishes, made patient DNR/DNI. In addition, on chest xray her left lung progressively became opacified likely from atelecatasis vs worsening pneumonia despite continued antibiotics. While she recovered from each episode of hypoxic hypercapnic respiratory distress and rapid atrial fibrillation to baseline, she was no longer able to ambulate developing several sacral unstagable ulcers, no longer able to feed herself and family felt that she appeared depressed. Given her hemodynamic instability she was not a candidate for GI intervention for the GI bleed. Family chose to give one unit of transfusion, stop blood draws , invasive procedures/interventions and testing, and prepared patient for hospice. Once stable for home transfer, arrangements were made to continue hospice at home. Minutes to complete discharge: 45 Discharge Summary Reason For Visit: CHF EXACERBATION,SEPSIS,ATRIAL FIB Current Active Problems Acute on chronic respiratory failure with hypoxia and hypercapnia (Acute) CHF (congestive heart failure) (Chronic) Paroxysmal atrial fibrillation (Chronic) Condition: Improved - Instructions Referrals: Ysabel Wagner MD [Primary Care Provider] - 1 Week Disposition: DISCHARGE TO HOSPICE-HOME - Home Medications Comprehensive Discharge Medication List: Ambulatory Orders Tiotropium [place] [Spiriva] 1 inh PO BID 07/19/14 Roflumilast [Daliresp -] 500 mcg PO DAILY #30 tablet 07/21/14 Metformin HCl 500 mg PO DAILY 05/09/15 Pregabalin [Lyrica -] 75 mg PO BID 05/09/15 Albuterol 0.083% Nebulizer Lisa [Ventolin 0.083% Nebulizer Soln -] 1 neb NEB BID 12/01/15 Aspirin [ASA -] 81 mg PO DAILY 04/18/16 Escitalopram Oxalate [Lexapro -] 10 mg PO BID 04/18/16 Sucralfate [Carafate] 1 gm PO BID 04/18/16 Levalbuterol Tartrate [Xopenex Hfa] 15 gm IH DAILY PRN 05/04/16 Nortriptyline HCl [Pamelor -] 30 mg PO HS 05/04/16 Salmeterol/Fluticasone [Advair 100Mcg/50Mcg -] 1 inh PO BID 07/13/16 Ferrous Sulfate [Feosol] 325 mg PO BIDWM #120 ud 07/16/16 Methimazole [Tapazole -] 15 mg PO TID #90 tablet 07/26/16 Pramipexole Di-HCl [Mirapex] 0.5 mg PO HS 08/09/16 Amoxicillin/Potassium Clav [Augmentin 875-125 Tablet] 1 each PO BID #10 tablet 08/25/16 Apixaban [Eliquis -] 2.5 mg PO BID tablet 08/25/16 Bisacodyl Suppository [Dulcolax Suppository -] 10 mg RC PRN PRN #0 supp.rect 10/06 Insulin (Levemir) [Levemir Vial] 10 units SQ HS ml 08/25/16 [place]-3 Acid Ethyl Esters [Lovaza -] 2 gm PO BID cap 08/25/16 Pantoprazole Sodium [Protonix -] 40 mg PO BID #60 tablet.ec 08/25/16 Polyethylene Glycol 3350 [Miralax 119 gm Btl -] 17 gm PO BID #1 bottle 08/25/16 Prednisone 10 mg PO DAILY #20 tablet 08/25/16 This patient is new to me today: No Emergency Visit: No Critical Care patient: No - Discharge Referral Referred to [facility] No
== END 2016-08-25 12:29 | disposition hospice, home (50) | DRG 871 ==
LOC: JER 08:54 → JERBED 11:17 → JICU 15:40 → J4W 08-14 18:00 → UNDODISIN 08-18 16:18 → J7W 08-24 06:19
PROVIDERS: ADMIT Internal Medicine; ATTEND Internal Medicine
PROC: 5A09557 Assistance with Respiratory Ventilation, Greater than 96 Consecutive Hours, Continuous Positive Airway Pressure (ICD-10-PCS; 2016-08-09)
PROC: 30233N1 Transfusion of Nonautologous Red Blood Cells into Peripheral Vein, Percutaneous Approach (ICD-10-PCS; principal; 2016-08-23)
DX: A41.9 Sepsis, unspecified organism (principal); J96.21 Acute and chronic respiratory failure with hypoxia; J96.22 Acute and chronic respiratory failure with hypercapnia; J13 Pneumonia due to Streptococcus pneumoniae; I50.33 Acute on chronic diastolic (congestive) heart failure; J44.1 Chronic obstructive pulmonary disease with (acute) exacerbation; N13.30 Unspecified hydronephrosis; K92.2 Gastrointestinal hemorrhage, unspecified; J98.11 Atelectasis; E87.0 Hyperosmolality and hypernatremia; N39.0 Urinary tract infection, site not specified; I48.92 Unspecified atrial flutter; I43 Cardiomyopathy in diseases classified elsewhere; I48.0 Paroxysmal atrial fibrillation; E78.5 Hyperlipidemia, unspecified; I10 Essential (primary) hypertension; K21.9 Gastro-esophageal reflux disease without esophagitis; I11.0 Hypertensive heart disease with heart failure; E05.90 Thyrotoxicosis, unspecified without thyrotoxic crisis or storm; I25.119 Atherosclerotic heart disease of native coronary artery with unspecified angina pectoris; G20 Parkinson's disease; E11.65 Type 2 diabetes mellitus with hyperglycemia; K59.00 Constipation, unspecified; R33.9 Retention of urine, unspecified; I95.9 Hypotension, unspecified; D72.829 Elevated white blood cell count, unspecified; D50.9 Iron deficiency anemia, unspecified; M19.90 Unspecified osteoarthritis, unspecified site
CPT/HCPCS: 36415; 36430; 36600; 70450-TC; 71010-TC; 71250-TC; 74000-TC; 76604-TC; 76775-TC; 80048; 80053; 81003; 81015; 82272; 82375; 82550; 82803; 82947; 83050; 83605; 83735; 83880; 84100; 84484; 85025; 85027; 85610; 85730; 86140; 86850; 86900; 86901; 86922; 87040; 87077; 87086; 87254; 87804; 87899; 93005; 93010; 94640; 94660; 97116-GP; 97161-GP; 99285-25; P9058